=== PATIENT | female | born 1925 | race Caucasian/White ===

== ENCOUNTER 2016-10-21 02:56 | Emergency (ER) | payer MEDICARE, OTHER ==
[~2016-10-21] VITALS: Ht 160 cm; Wt 47.0 kg
[~2016-10-21 02:56] MED LIST: ACET1CAP18 PO; AMLO5TAB2 PO; ASPI-110 PO; CHOL1CHW5 CHEW; COLA100C3 PO; DULC10SU3 RECTAL; FLEEENE3 RECTAL; FURO1TAB62 PO; IPRA0.03; LATA.005%O EACH EYE; LEVO125T4 PO; LOVA20TA PO; MILKSUS4; MIRA33504 PO; NEPHRO PO; PHOS667C5 PO; PLAV75TA29 PO; TRAZ50TA12 PO; ZOFR4TAB PO; ZOLO25TA PO
[2016-10-21 02:59] VITALS: BP 163/81; PULSE 99; RESP 18; TEMP 98.1; O2SAT 96
[2016-10-21] MEDS ORDERED: LEVO-168 PO (03:15)
[2016-10-21] MEDS ORDERED: IPRA17I INH (03:15)
[2016-10-21] MEDS ORDERED: ZANT150T2 PO (03:15)
[2016-10-21] MEDS ORDERED: LATA.005%O EACH EYE (03:15)
[2016-10-21] MEDS ORDERED: NEPRLIQ PO (03:15)
[2016-10-21] MEDS ORDERED: NEPHTAB3 PO (03:15)
--- NOTE | 2016-10-21 03:15 | PD ---
HPI Chief Complaint: Injury Time Seen by Provider: 03:05 Travel History International Travel<30 days: No Contact w/Intl Traveler<30days: No Traveled to known affect area: No History of Present Illness HPI This is an 89 year old female who is on dialysis who presents to the emergency department who was trying to get into bed tonight having swung her leg getting into bed and she hit her left lower leg on the side of the bed. She has developed a large lump at the area, worsening, swollen, mildly painful. Pt. is on Plavix. She has no other injuries. PFSH Past Medical History Arthritis: Yes Asthma: No Atrial Fibrillation: Yes Blood Disorders: No Heart Rhythm Problems: Yes Cancer: No Cardiovascular Problems: Yes (ATRIAL FIBRILLATION, CAD) High Cholesterol: Yes Chemotherapy: No COPD: Yes Diabetes: Yes (TYPE II) Patient Takes Glucophage: No Dialysis: Yes (TUE, THURS, SAT) Diminished Hearing: No Endocrine: Yes Glaucoma: Yes Genitourinary: Yes Hepatitis: No Hiatal Hernia: No Hypertension: Yes Immune Disorder: No Medical other: Yes (HYPERLIPIDEMIA) Musculoskeletal: Yes (L CARPAL TUNNEL, GAIT DISTURBANCE) Neurologic: Yes (R ARM WEAKNESS AND DYSARTHRIA) Psychiatric: No Reproductive: No Respiratory: No Immunizations Current: Yes Radiation Therapy: No Sleep Apnea: No Thyroid Disease: Yes (HYPOTHYROIDISM) Menopausal: Yes Past Surgical History Abdominal Surgery: No AICD: No Cardiac Surgery: No Ear Surgery: No Endocrine Surgery: No Eye Surgery: No Genitourinary Surgery: No Gynecologic Surgery: No Joint Replacement: No Oral Surgery: No Pacemaker: No Thoracic Surgery: Yes (LUNG LOBE REMOVED) Valve Replacement: Yes (AV FISTUA RUE) Other Surgery: Yes Social History Alcohol Use: Yes (RARELY) Tobacco Use: No Substance Use: No Allergies-Medications (Allergen,Severity, Reaction): Coded Allergies: Adhesives (Verified Adverse Reaction, Severe, 10/11/14) Denies hives from tape, states, "I have very thin skin and the adhesive tears my skin." Penicillin (Verified Adverse Reaction, Intermediate, NAUSEA, 10/11/14) States, "I am taking an antibiotic in the Penicillin family right now without any problem. They give me nausea medicine." Reported Meds & Prescriptions Reported Meds & Active Scripts Active Amlodipine (Amlodipine Besylate) 5 Mg Tab 5 Mg PO DAILY Dulcolax Supp (Bisacodyl) 10 Mg Supp 10 Mg RECTAL DAILY PRN Vitamin D3 (Cholecalciferol) 2,000 Unit Chew 2,000 Units CHEW DAILY Plavix (Clopidogrel Bisulfate) 75 Mg Tab 75 Mg PO DAILY Colace (Docusate Sodium) 100 Mg Cap 100 Mg PO DAILY PRN Lasix (Furosemide) 20 Mg Tab 20 Mg PO DAILY Lovastatin 20 Mg Tab 20 Mg PO DAILY Miralax Powder (Polyethylene Glycol 3350 Powder) 17 Gm Powd 17 Gm PO DAILY Mix and dissolve one measuring cap-ful (17 grams) in water or juice. Zofran (Ondansetron HCl) 4 Mg Tab 4 Mg PO Q8HR PRN Phoslo (Calcium Acetate (Phosphate Binder)) 667 Mg Cap 667 Mg PO TID Zoloft (Sertraline HCl) 25 Mg Tab 25 Mg PO DAILY Trazodone (Trazodone HCl) 50 Mg Tab 50 Mg PO HS Tylenol (Acetaminophen) 325 Mg Cap 325 Mg PO Q6H PRN Levothyroxine (Levothyroxine Sodium) 125 Mcg Tab 125 Mcg PO DAILY Reported Zantac (Ranitidine HCl) 150 Mg Tab 75 Mg PO DAILY Levothyroxine (Levothyroxine Sodium) 112 Mcg Tab 112 Mcg PO DAILY Atrovent HFA 12.9 GM Inh (Ipratropium [place]) 17 Mcg/Act Aer 2 Puff INH Q6HR PRN Nepro (Nutritional Supplements) 1 Liq Liq 1 Can PO DAILY Xalatan Opth Drops (Latanoprost) 0.005% Drops 1 Drop EACH EYE HS Nephro-Donald (B-Complex W/ C & Folic Acid) 1 Tab 1 Tab PO DAILY Aspirin 81 (Aspirin) 81 Mg Tabdr 81 Mg PO DAILY Fleet Enema Rectal (Sodium Phosphates Rectal) 7-19 Gm/118 Ml Enem 118 Ml RECTAL DAILY PRN Ipratropium Nasal Unknown Strength Counce Unknown Dose Milk of Magnesia Liq (Magnesium Hydroxide) 400 Mg/5 Ml Susp Nephro-Donald Rx (Vitamin B Cmplx/Vit C/Folic AC) Unknown Strength Tab Unknown Dose PO Review of Systems Except as stated in HPI: all other systems reviewed are Neg Physical Exam Narrative GENERAL:Well appearing, no acute distress SKIN: 8 x 4 cm hematoma on the medial aspect of the left lower leg. HEAD: Atraumatic. Normocephalic. EYES: Pupils equal and round. No injection or drainage. ENT: Moist mucous membranes NECK: Trachea midline. CARDIOVASCULAR: Regular rate and rhythm. 3/6 systolic murmur RESPIRATORY: Clear to auscultation. Breath sounds equal bilaterally. GASTROINTESTINAL: Abdomen soft, non-tender, nondistended. MUSCULOSKELETAL: No obvious deformities. NEUROLOGICAL: Confused, but awake and alert. No obvious cranial nerve deficits. Moving all extremities PSYCHIATRIC: Appropriate mood and affect; insight and judgment normal. Data Data Last Documented VS Vital Signs Date Time Temp Pulse Resp B/P Pulse Ox O2 Delivery O2 Flow Rate FiO2 10/21/16 03:02 96 Room Air 10/21/16 02:59 98.1 99 18 163/81 MDM Medical Decision Making Medical Screen Exam Complete: Yes Emergency Medical Condition: Yes Interpretation(s) afebrile, mild tachycardia Differential Diagnosis Hematoma, abrasion, laceration Narrative Course This is an 89-year-old female who presents to the emergency department having sustained a hematoma from hitting her leg on the side of her bed. She is on Plavix. I think the hematoma should be treated conservatively with an Avery wrap. Otherwise she has no evident injuries. She can be discharged home. Diagnosis Primary Impression: Hematoma of left lower extremity Qualified Code: S80.12XA - Hematoma of left lower extremity, initial encounter Patient Instructions: General Instructions Additional Instructions: Keep the hematoma compressed with an Avery wrap. It should improve over 2 weeks. Med/Other Pt SpecificInfo: No Change to Meds Disposition: 01 DISCHARGE HOME Condition: Stable Samina Rodriguez MD Oct 21, 2016 03:15
[2016-10-21 05:51] VITALS: BP 161/76; PULSE 88; RESP 16; O2SAT 98
[2016-11-24] MEDS ORDERED: HYDR-2376 PO (15:11)
[2016-12-04] MEDS ORDERED: TRAZ50TA12 PO (18:19)
[2016-12-04] MEDS ORDERED: HYDR-2376 PO (18:19)
[2016-12-04] MEDS ORDERED: ZOLO25TA PO (18:19)
[2016-12-06] MEDS ORDERED: HYDR-3366 PO (15:19)
[2016-12-06] MEDS ORDERED: PERI8.6T PO (15:19)
[2016-12-08] MEDS ORDERED: HYDR-3366 PO (16:21)
== END 2016-10-21 10:48 | disposition home or self-care (01) ==
LOC: NEPC 02:56
DX: S80.12XA Contusion of left lower leg, initial encounter (principal); I48.91 Unspecified atrial fibrillation; Z99.2 Dependence on renal dialysis; I25.10 Atherosclerotic heart disease of native coronary artery without angina pectoris; E78.00 Pure hypercholesterolemia, unspecified; J44.9 Chronic obstructive pulmonary disease, unspecified; E11.9 Type 2 diabetes mellitus without complications; I10 Essential (primary) hypertension; E03.9 Hypothyroidism, unspecified; Z79.02 Long term (current) use of antithrombotics/antiplatelets; W22.03XA Walked into furniture, initial encounter; Y92.003 Bedroom of unspecified non-institutional (private) residence as the place of occurrence of the external cause; Y99.8 Other external cause status
CPT/HCPCS: 99283

== ENCOUNTER 2016-11-14 03:30 | Inpatient (IN) | payer MEDICARE, OTHER, MEDICAID ==
[2016-11-14] VITALS (11 sets, daily range): BP systolic 118–135; BP diastolic 56–64; PULSE 48–101; RESP 14–22; TEMP 97.1–98.1; O2SAT 93–100
[~2016-11-14] VITALS: Ht 162.6 cm; Wt 49.0 kg
[~2016-11-14 03:30] MED LIST changes: +IPRA17I INH; +LEVO-168 PO; +NEPHTAB3 PO; +NEPRLIQ PO; +ZANT150T2 PO
[2016-11-14] MEDS ORDERED: MORPHINE SULFATE 4 MG/ML INJ IV PUSH ONE (04:45)
[2016-11-14] MEDS ORDERED: ONDANSETRON HCL 4 MG/2 ML VIAL IV PUSH ONE (04:45)
[2016-11-14 05:11] LABS: AUTOMATED NEUTROPHIL # 13.6 TH/MM3 (1.8-7.7); BASOPHIL # 0.1 TH/MM3 (0-0.2); BASOPHIL % 0.6 % (0.0-2.0); EOSINOPHIL # 0.4 TH/MM3 (0-0.4); EOSINOPHIL % 2.2 % (0.0-4.0); HEMATOCRIT 33.3 % (35.0-46.0); HEMO FLAGS DIFF FINAL; LYMPH % 9.1 % (9.0-44.0); LYMPHOCYTE # 1.5 TH/MM3 (1.0-4.8); MEAN CELL VOLUME 91.1 FL (80.0-100.0); MEAN CORPUSCULAR HEMOGLOBIN 29.7 PG (27.0-34.0); MEAN CORPUSCULAR HGB CONC 32.6 % (32.0-36.0); MONO % 6.4 % (0.0-8.0); NEUT % 81.7 % (16.0-70.0); PLATELET COUNT 268 TH/MM3 (150-450); RED BLOOD COUNT 3.66 MIL/MM3 (4.00-5.30); WHITE BLOOD COUNT 16.7 TH/MM3 (4.0-11.0)
[2016-11-14] MEDS: SODIUM CHLOR 0.9% 1000 ML INJ 1,000 ML IV SCH ×2 (05:14→06:23)
[2016-11-14 05:26] LABS: ALKALINE PHOSPHATASE 141 U/L (45-117); TOTAL BILIRUBIN ADULT 0.4 MG/DL (0.2-1.0)
--- NOTE | 2016-11-14 05:26 | RADRPT ---
EXAM DATE/TIME: 11/14/2016 04:31 [facility] COMPARISON: CHEST SINGLE AP, November 07, 2012, 16:03. INDICATIONS : Short of breath after fall. MEDICAL HISTORY : Stroke. Renal disease, end stage. Cardiovascular disease. dysphagia. SURGICAL HISTORY : CABG. ENCOUNTER: Initial ACUITY: 1 day PAIN SCORE: 2/10 LOCATION: Bilateral chest FINDINGS: A single view of the chest demonstrates left basilar consolidation/effusion. Pleural based thickening and scarring is seen laterally in the right lower lung field. Heart size is borderline. Postsurgical changes including findings of prior CABG as well as extensive stenting of the right upper extremity vasculature. Osseous structures are intact. CONCLUSION: 1. Left basilar consolidation/effusion. 2. Focal pleural thickening and pleural parenchymal scarring laterally in the right lower lung. 3. Prior CABG. Abandoned epicardial pacer wires. Extensive stenting of the right upper extremity vasc ulature. 4. Borderline prominent but well compensated heart Carson Stevens MD on November 14, 2016 at 5:21 Board Certified Radiologist. This report was verified electronically.
--- NOTE | 2016-11-14 05:29 | RADRPT ---
EXAM DATE/TIME: 11/14/2016 04:40 [facility] COMPARISON: No previous studies available for comparison. INDICATIONS : Right knee pain post fall. MEDICAL HISTORY : Stroke. Renal disease, end stage. Cardiovascular disease. dysphagia. SURGICAL HISTORY : CABG. ENCOUNTER: Initial ACUITY: 1 day PAIN SCORE: 10/10 LOCATION: Right knee FINDINGS: Two view examination of the right knee demonstrates osseous demineralization with no acute fracture. Severe degenerative osteoarthritic changes with marked loss of the medial tibiofemoral joint space ex tensive atherosclerotic calcification of the regional vasculature. Multiple hemoclips along the media l soft tissues of the leg suggest prior vein harvesting and/or in situ bypass graft. CONCLUSION: 1. Osseous demineralization but no acute fracture. 2. Osteoarthritic changes. 3. Dense atherosclerotic calcification of the regional vasculature, including a probable in situ fem- popliteal bypass graft. Carson Stevens MD on November 14, 2016 at 5:25 Board Certified Radiologist. This report was verified electronically.
[2016-11-14 05:31] LABS: ALT (GPT) 23 U/L (10-53); ANION GAP 11 MEQ/L (5-15); AST (GOT) 17 U/L (15-37); BICARBONATE 23.4 MEQ/L (21.0-32.0); BLOOD UREA NITROGEN 46 MG/DL (7-18); CHLORIDE 96 MEQ/L (98-107); GLOMERULAR FILTRATION RATE 8 ML/MIN (>89); SODIUM (NA) 130 MEQ/L (136-145)
--- NOTE | 2016-11-14 05:31 | RADRPT ---
EXAM DATE/TIME: 11/14/2016 04:35 [facility] COMPARISON: No previous studies available for comparison. INDICATIONS : Right hip pain post fall. MEDICAL HISTORY : Stroke. Renal disease, end stage. Cardiovascular disease. dysphagia. SURGICAL HISTORY : None. ENCOUNTER: Initial ACUITY: 1 day PAIN SCORE: 10/10 LOCATION: Right hip FINDINGS: Examination of the right hip was performed with AP Pelvis. There is diffuse osseous demineralization. Apparent subcapital fracture of the right hip. 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 Den se atherosclerotic calcification of the regional vasculature. CONCLUSION: 1. Diffuse osseous demineralization with a subcapital fracture of the right hip. 2. Dense atherosclerotic calcification of the regional vasculature. Carson Stevens MD on November 14, 2016 at 5:28 Board Certified Radiologist. This report was verified electronically.
[2016-11-14 05:37] LABS: PROTHROMBIN TIME - PATIENT 11.4 SEC (9.8-11.6)
--- NOTE | 2016-11-14 05:38 | PD ---
HPI Chief Complaint: Fall Time Seen by Provider: 04:12 Travel History International Travel<30 days: No Contact w/Intl Traveler<30days: No Traveled to known affect area: No History of Present Illness HPI The patient is an 89 year old female who presents to the [facility] emergency department with a history of a reported mechanical fall at her patient 's [facility] yesterday at approximately noon. According to the record, the patient throughout the day was complaining of right hip and right knee pain. The patient was noted to have bruising developing over the anterior aspect of the right knee. The patient was sent to the emergency department for evaluation and pain control. The patient denies any recent fevers, cough, congestion, neck pain, chest pain, shortness of breath, abdominal pain, vomiting , diarrhea, urinary symptoms, or new neurologic symptoms. 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 Arthritis: Yes Asthma: No Atrial Fibrillation: Yes Blood Disorders: No Heart Rhythm Problems: Yes Cancer: No Cardiovascular Problems: Yes (ATRIAL FIBRILLATION, CAD) High Cholesterol: Yes Chemotherapy: No COPD: Yes Diabetes: Yes (TYPE II) Patient Takes Glucophage: Yes Dialysis: Yes (SUN, , SUN) Diminished Hearing: No Endocrine: Yes Glaucoma: Yes Genitourinary: Yes Hepatitis: No Hiatal Hernia: No Hypertension: Yes Immune Disorder: No Medical other: Yes (HYPERLIPIDEMIA) Musculoskeletal: Yes (L CARPAL TUNNEL, GAIT DISTURBANCE) Neurologic: Yes (R ARM WEAKNESS AND DYSARTHRIA) Psychiatric: No Reproductive: No Respiratory: No Immunizations Current: Yes Radiation Therapy: No Sleep Apnea: No Thyroid Disease: Yes (HYPOTHYROIDISM) Tetanus Vaccination: Unknown Influenza Vaccination: Yes Menopausal: Yes Past Surgical History Narrative Surgical The patient's past surgical history is significant for tricuspid valve replacement, AV fistula for dialysis in the right upper extremity. Abdominal Surgery: No AICD: No Cardiac Surgery: No Ear Surgery: No Endocrine Surgery: No Eye Surgery: No Genitourinary Surgery: No Gynecologic Surgery: No Joint Replacement: No Oral Surgery: No Pacemaker: No Thoracic Surgery: Yes (LUNG LOBE REMOVED) Valve Replacement: Yes (AV JEFFUA RUJonathan) Other Surgery: Yes Social History Alcohol Use: Yes (RARELY) Tobacco Use: No Substance Use: No Allergies-Medications (Allergen,Severity, Reaction): Coded Allergies: Adhesives (Verified Adverse Reaction, Severe, 11/14/16) Denies hives from tape, states, "I have very thin skin and the adhesive tears my skin." Penicillin (Verified Adverse Reaction, Intermediate, NAUSEA, 11/14/16) States, "I am taking an antibiotic in the Penicillin family right now without any problem. They give me nausea medicine." Reported Meds & Prescriptions Reported Meds & Active Scripts Active Amlodipine (Amlodipine Besylate) 5 Mg Tab 5 Mg PO DAILY Dulcolax Supp (Bisacodyl) 10 Mg Supp 10 Mg RECTAL DAILY PRN Vitamin D3 (Cholecalciferol) 2,000 Unit Chew 2,000 Units CHEW DAILY Plavix (Clopidogrel Bisulfate) 75 Mg Tab 75 Mg PO DAILY Colace (Docusate Sodium) 100 Mg Cap 100 Mg PO DAILY PRN Lasix (Furosemide) 20 Mg Tab 20 Mg PO DAILY Lovastatin 20 Mg Tab 20 Mg PO DAILY Miralax Powder (Polyethylene Glycol 3350 Powder) 17 Gm Powd 17 Gm PO DAILY Mix and dissolve one measuring cap-ful (17 grams) in water or juice. Zofran (Ondansetron HCl) 4 Mg Tab 4 Mg PO Q8HR PRN Phoslo (Calcium Acetate (Phosphate Binder)) 667 Mg Cap 667 Mg PO TID Zoloft (Sertraline HCl) 25 Mg Tab 25 Mg PO DAILY Trazodone (Trazodone HCl) 50 Mg Tab 50 Mg PO HS Tylenol (Acetaminophen) 325 Mg Cap 325 Mg PO Q6H PRN Levothyroxine (Levothyroxine Sodium) 125 Mcg Tab 125 Mcg PO DAILY Reported Lovastatin 40 Mg Tab 40 Mg PO DAILY Zantac (Ranitidine HCl) 150 Mg Tab 75 Mg PO DAILY Levothyroxine (Levothyroxine Sodium) 112 Mcg Tab 112 Mcg PO DAILY Atrovent HFA 12.9 GM Inh (Ipratropium Beaman) 17 Mcg/Act Aer 2 Puff INH Q6HR PRN Nepro (Nutritional Supplements) 1 Liq Liq 1 Can PO DAILY Xalatan Opth Drops (Latanoprost) 0.005% Drops 1 Drop EACH EYE HS Nephro-Donald (B-Complex W/ C & Folic Acid) 1 Tab 1 Tab PO DAILY Aspirin 81 (Aspirin) 81 Mg Tabdr 81 Mg PO DAILY Fleet Enema Rectal (Sodium Phosphates Rectal) 7-19 Gm/118 Ml Enem 118 Ml RECTAL DAILY PRN Ipratropium Nasal Unknown Strength [place] Unknown Dose Milk of Silvia Liq (Magnesium Hydroxide) 400 Mg/5 Ml Susp Nephro-Donald Rx (Vitamin B Cmplx/Vit C/Folic AC) Unknown Strength Tab Unknown Dose PO Review of Systems Except as stated in HPI: all other systems reviewed are Neg General / Constitutional: No: Fever Eyes: No: Visual changes HENT: No: Headaches Cardiovascular: No: Chest Pain or Discomfort Respiratory: No: Shortness of Breath Gastrointestinal: No: Abdominal Pain Genitourinary: No: Dysuria Musculoskeletal: Positive: Arthralgias, Limited ROM, Pain Skin: No Rash Neurologic: No: Weakness Psychiatric: No: Depression Endocrine: No: Polydipsia Hematologic/Lymphatic: No: Easy Bruising Physical Exam Narrative General: The patient is a well-developed, thin appearing female, reporting right hip and right knee pain. Head and Neck exam: Head is normocephalic atraumatic. Eyes: EOMI, pupils are equal round and reactive to light. Nose: Midline septum with pink mucous membranes Mouth: Dentition unremarkable. Moist mucus membranes. Posterior oropharynx is not erythematous. No tonsillar hypertrophy. Uvula midline. Airway patent. Neck: No palpable lymphadenopathy. No nuchal rigidity. No thyromegaly. Cardiovascular: Regular rate and rhythm without murmurs, gallops, or rubs. Lungs: Clear to auscultation bilaterally. No wheezes, rhonchi, or rales. Abdomen: Soft, without tenderness to palpation in all 4 quadrants of the abdomen. No guarding, rebound, or rigidity. Normal bowel sounds are audible. Extremities: No clubbing, cyanosis, or edema. 2+ pulses in all 4 extremities. The patient has both knees flexed. The patient is unable to straighten out her legs to evaluate for shortening or rotation. The patient on examination of the right knee has tenderness on palpation anteriorly with ecchymosis noted. There is no ligament laxity. There is no deformity noted of the right knee. The patient has pain with flexion of her right hip. Back: No costovertebral angle tenderness to palpation. Neurologic Exam: Grossly nonfocal. Data Data Last Documented VS Vital Signs Date Time Temp Pulse Resp B/P Pulse Ox O2 Delivery O2 Flow Rate FiO2 11/14/16 06:23 59 14 120/56 98 Nasal Cannula 2 11/14/16 03:39 98.1 Orders Chest, Single Ap (11/14/16 04:13) Hip, Uni(Ap&Lat) W Ap Pelvis (11/14/16 04:45) Knee, Ltd (1 Or 2vws) (11/14/16 04:45) Electrocardiogram (11/14/16 04:45) Complete Blood Count With Diff (11/14/16 04:45) Comprehensive Metabolic Panel (11/14/16 04:45) Prothrombin Time / Inr (Pt) (11/14/16 04:45) Act Partial Throm Time (Ptt) (11/14/16 04:45) Urinalysis - C+S If Indicated (11/14/16 04:45) Iv Access Insert/Monitor (11/14/16 04:45) Ecg Monitoring (11/14/16 04:45) Oximetry (11/14/16 04:45) Urinary Catheter Insert/Apply (11/14/16 04:45) Sodium Chlor 0.9% 1000 Ml Inj (Ns 1000 M (11/14/16 04:45) Morphine Inj (Morphine Inj) (11/14/16 04:45) Ondansetron Inj (Zofran Inj) (11/14/16 04:45) Sodium Polysty Sulfate Liq (Kayexalate L (11/14/16 06:00) Dextrose 50% In Song (Vial) Inj (D50w (Vi (11/14/16 06:00) Insulin Human Regular Inj (Novolin R Inj (11/14/16 06:00) Sodium Bicarbonate 8.4% Inj (Sodium Bica (11/14/16 06:00) Albuterol Neb (Albuterol Neb) (11/14/16 06:00) Calcium Gluconate Inj (Calcium Gluconate (11/14/16 06:00) Admit Order (Ed Use Only) (11/14/16 06:24) Labs Laboratory Tests Test 11/14/16 04:45 White Blood Count 16.7 TH/MM3 Red Blood Count 3.66 MIL/MM3 Hemoglobin 10.9 GM/DL Hematocrit 33.3 % Mean Corpuscular Volume 91.1 FL Mean Corpuscular Hemoglobin 29.7 PG Mean Corpuscular Hemoglobin 32.6 % Concent Red Cell Distribution Width 15.0 % Platelet Count 268 TH/MM3 Mean Platelet Volume 7.8 FL Neutrophils (%) (Auto) 81.7 % Lymphocytes (%) (Auto) 9.1 % Monocytes (%) (Auto) 6.4 % Eosinophils (%) (Auto) 2.2 % Basophils (%) (Auto) 0.6 % Neutrophils # (Auto) 13.6 TH/MM3 Lymphocytes # (Auto) 1.5 TH/MM3 Monocytes # (Auto) 1.1 TH/MM3 Eosinophils # (Auto) 0.4 TH/MM3 Basophils # (Auto) 0.1 TH/MM3 CBC Comment DIFF FINAL Differential Comment Prothrombin Time 11.4 SEC Prothromb Time International 1.0 RATIO Ratio Activated Partial 30.0 SEC Thromboplast Time Sodium Level 130 MEQ/L Potassium Level 6.0 MEQ/L Chloride Level 96 MEQ/L Carbon Dioxide Level 23.4 MEQ/L Anion Gap 11 MEQ/L Blood Urea Nitrogen 46 MG/DL Creatinine 5.35 MG/DL Estimat Glomerular Filtration 8 ML/MIN Rate Random Glucose 116 MG/DL Calcium Level 8.8 MG/DL Magnesium Level 2.6 MG/DL Total Bilirubin 0.4 MG/DL Aspartate Amino Transf 17 U/L (AST/SGOT) Alanine Aminotransferase 23 U/L (ALT/SGPT) Alkaline Phosphatase 141 U/L Total Protein 8.1 GM/DL Albumin 3.5 GM/DL [facility] Medical Decision Making Medical Screen Exam Complete: Yes Emergency Medical Condition: Yes Medical Record Reviewed: Yes Interpretation(s) Laboratory Tests Test 11/14/16 04:45 White Blood Count 16.7 TH/MM3 Red Blood Count 3.66 MIL/MM3 Hemoglobin 10.9 GM/DL Hematocrit 33.3 % Mean Corpuscular Volume 91.1 FL Mean Corpuscular Hemoglobin 29.7 PG Mean Corpuscular Hemoglobin 32.6 % Concent Red Cell Distribution Width 15.0 % Platelet Count 268 TH/MM3 Mean Platelet Volume 7.8 FL Neutrophils (%) (Auto) 81.7 % Lymphocytes (%) (Auto) 9.1 % Monocytes (%) (Auto) 6.4 % Eosinophils (%) (Auto) 2.2 % Basophils (%) (Auto) 0.6 % Neutrophils # (Auto) 13.6 TH/MM3 Lymphocytes # (Auto) 1.5 TH/MM3 Monocytes # (Auto) 1.1 TH/MM3 Eosinophils # (Auto) 0.4 TH/MM3 Basophils # (Auto) 0.1 TH/MM3 CBC Comment DIFF FINAL Differential Comment Prothrombin Time 11.4 SEC Prothromb Time International 1.0 RATIO Ratio Activated Partial 30.0 SEC Thromboplast Time Sodium Level 130 MEQ/L Potassium Level 6.0 MEQ/L Chloride Level 96 MEQ/L Carbon Dioxide Level 23.4 MEQ/L Anion Gap 11 MEQ/L Blood Urea Nitrogen 46 MG/DL Creatinine 5.35 MG/DL Estimat Glomerular Filtration 8 ML/MIN Rate Random Glucose 116 MG/DL Calcium Level 8.8 MG/DL Total Bilirubin 0.4 MG/DL Aspartate Amino Transf 17 U/L (AST/SGOT) Alanine Aminotransferase 23 U/L (ALT/SGPT) Alkaline Phosphatase 141 U/L Total Protein 8.1 GM/DL Albumin 3.5 GM/DL Last Impressions Knee X-Ray 11/14/16444 Signed Impressions: Service Date/Time: Monday, November 14, 2016 04:40 - CONCLUSION: 1. Osseous demineralization but no acute fracture. 2. Osteoarthritic changes. 3. Dense atherosclerotic calcification of the regional vasculature, including a probable in situ fem-popliteal bypass graft. Carson Stevens MD Hip and Pelvis X-Ray 11/14/166 Signed Impressions: Service Date/Time: Monday, November 14, 2016 04:35 - CONCLUSION: 1. Diffuse osseous demineralization with a subcapital fracture of the right hip. 2. Dense atherosclerotic calcification of the regional vasculature. Carson Stevens MD Chest X-Ray 11/14/16 [id number] Signed Impressions: Service Date/Time: Monday, November 14, 2016 04:31 - CONCLUSION: 1. Left basilar consolidation/effusion. 2. Focal pleural thickening and pleural parenchymal scarring laterally in the right lower lung. 3. Prior CABG. Abandoned epicardial pacer wires. Extensive stenting of the right upper extremity vasculature. 4. Borderline prominent but well compensated heart Carson Stevens MD Differential Diagnosis Right hip fracture versus dislocation, versus right knee fracture, versus contusion Narrative Course During the course of the patients emergency department visit, the patients history, examination, and differential diagnosis were reviewed with the patient. The patient had IV access obtained and blood work sent for analysis. The patient was placed on a youth nutritional monitor with oximetry and blood pressure monitoring. A right hip and pelvic x-ray was ordered, right knee x-ray was ordered. Chest x-ray was ordered. An EKG was done on arrival. The patient's EKG shows a bradycardia with P waves that are difficult to identify, however in V1 a appeared to be marching out regularly and the patient's QRS complexes appear to be marching out regularly, suspicious for complete heart block. No acute ST segment elevation is noted. The patient's potassium was noted to be elevated at 6.0. This could be the cause. The patient had pacer pads applied to her chest. The patient's resuscitation status was reviewed and the patient is DNR. The patient was given calcium gluconate 1 g IV over one hour, Kayexalate 15 g by mouth, 1 amp of D50, regular insulin 10 units IV 1, albuterol nebulizer treatment 1, and 1 amp of bicarbonate. The patient was provided normal saline at O, morphine for pain, Zofran for nausea. The patients laboratory studies were reviewed and remarkable for a white count of 16.7, hemoglobin 10.9, platelets 268 with 81.7 neutrophils, CMP is remarkable for sodium of 130, potassium 6.0, chloride 96, BUN 46, creatinine 5.35, glucose 116, magnesium 2.6, alkaline phosphatase 141, PT PTT unremarkable. Radiology studies were reviewed and remarkable for a femoral neck fracture of the right hip. I spoke to Dr. Sheridan regarding this patient's hip fracture. He is awaiting medical clearance for surgical repair. Chest x-ray reveals a left basilar consolidation/effusion. The patient was given Rocephin 1 g IV, Zithromax 500 IV, as the patient's white count is also noted to be elevated and this could be related to a pneumonia. Knee x-ray reveals osseous demineralization, but no acute fracture. The patients results were discussed with the patient, including the plan of care. I explained that further testing and/ or monitoring is indicated based on the patients history, examination, and/ or laboratory findings. Therefore, I recommended admission for additional evaluation. The patient expressed understanding and was agreeable with this plan. The patient was admitted to the hospital in stable condition and sent to a bed under the care of the [facility]. Critical Care Narrative Aggregate critical care time was 35 minutes. Time to perform other separately billable procedures was not included in the critical care time. My time did not include minutes spent treating any other patients simultaneously or on activities that did not directly contribute to the patient's treatment. The services I provided to this patient were to treat and/or prevent clinically significant deterioration that could result in: Cardiovascular collapse, versus cardiac arrhythmia I provided critical care services requiring my management, as noted below: Chart data review, documentation time, medication orders and management, vital sign assessments/reviewing monitor data, ordering and reviewing lab tests, ordering and interpreting/reviewing x-rays and diagnostic studies, care of the patient and discussion of the patient with the admitting physicians. Diagnosis Primary Impression: Fracture of femoral neck, right Qualified Code: S72.001A - Closed fracture of neck of right femur, initial encounter Additional Impressions: Hyperkalemia Renal failure Hemodialysis patient Lung infiltrate Leukocytosis Qualified Code: D72.828 - Other elevated white blood cell (WBC) count Admitting Information Admitting Physician Requests: Admit Lana Vang MD Nov 14, 2016 05:38
[2016-11-14] MEDS ORDERED: CALCIUM GLUCONATE INJ 1 GM in SODIUM CHLORIDE 0.9% INJ 100 ML IV ONE (06:00)
[2016-11-14] MEDS ORDERED: RESP: ALBUTEROL 2.5 MG/3 ML NEB (SCH) NEB ONE (06:00)
[2016-11-14] MEDS ORDERED: INSULIN HUMAN REGULAR 1,000 UNITS/10 ML VIAL IV PUSH ONE (06:00)
[2016-11-14] MEDS ORDERED: DEXTROSE 50% IN WATER 50 ML VIAL(D50) IV PUSH ONE (06:00)
[2016-11-14] MEDS ORDERED: SODIUM POLYSTYRENE SULFONATE SUSP 15 GM/60 ML CUP PO ONE (06:00)
[2016-11-14] MEDS ORDERED: SODIUM BICARBONATE 8.4% INJ 50 MEQ/50 ML SYR IV PUSH ONE (06:00)
[2016-11-14] MEDS ORDERED: LOVA40TA PO (06:59)
[2016-11-14] MEDS ORDERED: SODIUM CHLORIDE 0.9% FLUSH 5 ML FLUSH FLUSH PRN (07:00)
[2016-11-14] MEDS ORDERED: BISACODYL 10 MG SUPP RECTAL PRN (07:00)
[2016-11-14] MEDS ORDERED: NALOXONE HCL 0.4 MG/ML AMP IV PRN (07:00)
[2016-11-14] MEDS ORDERED: ACETAMINOPHEN 325 MG TAB PO PRN (07:00)
[2016-11-14] MEDS ORDERED: ONDANSETRON HCL 4 MG/2 ML VIAL IVP PRN (07:00)
[2016-11-14] MEDS ORDERED: DOCUSATE SODIUM 100 MG CAP PO PRN (07:00)
--- NOTE | 2016-11-14 07:00 | HHI.HP ---
HPI Service Family Medicine Primary Care Physician Non-Staff Admission Diagnosis right femoral neck fx, hyperkalemia, dialysis patient Diagnoses: Chief Complaint: leg pain International Travel<30 Days: No Contact w/Intl Traveler<30days: No Known Affected Area: No History of Present Illness Patient is an 89-year-old female with past medical history significant for HTN, hypothyroidism, CAD, ESRD on dialysis, and CHF who presents today with leg pain after a fall. Patient is a resident of [facility] where she fell yesterday afternoon. Mechanism of fall was unable to be elicited due to patient's speech impairment. She was experiencing pain in her right anterior leg and knee that did not improve with Tylenol. She was sent to the ED and found to have a right subcapital hip fracture, hyperkalemia, and heart block. (Annelise Drew MD R2) Review of Systems Constitutional: COMPLAINS OF: Dizziness, DENIES: Fatigue, Fever, Chills Eyes: DENIES: Blurred vision Ears, nose, mouth, throat: DENIES: Throat pain Respiratory: DENIES: Cough, Wheezing, Shortness of breath Cardiovascular: DENIES: Chest pain, Palpitations, Lower Extremity Edema Gastrointestinal: DENIES: Abdominal pain, Nausea, Vomiting Genitourinary: DENIES: Dysuria Musculoskeletal: COMPLAINS OF: Joint pain, Muscle aches Hematologic/lymphatic: COMPLAINS OF: Bruising Neurologic: COMPLAINS OF: Abnormal gait, Poor Balance Psychiatric: COMPLAINS OF: Depression (Annelise Drew MD R2) Past Family Social History Past Medical History Hypertension Hyperlipidemia Hypothyroidism Coronary artery disease Peripheral vascular disease End-stage renal disease on dialysis Paroxysmal atrial fibrillation Macular degeneration Congestive heart failure with last ejection fraction at 35% noted in June History of 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 Past Surgical History Tricuspid valve replacement AV fistula for dialysis placement Reported Medications Reported Meds & Active Scripts Active Dulcolax Supp (Bisacodyl) 10 Mg Supp 10 Mg RECTAL DAILY PRN Vitamin D3 (Cholecalciferol) 2,000 Unit Chew 2,000 Units CHEW DAILY Plavix (Clopidogrel Bisulfate) 75 Mg Tab 75 Mg PO DAILY Colace (Docusate Sodium) 100 Mg Cap 100 Mg PO DAILY PRN Lasix (Furosemide) 20 Mg Tab 20 Mg PO DAILY Lovastatin 20 Mg Tab 20 Mg PO DAILY Miralax Powder (Polyethylene Glycol 3350 Powder) 17 Gm Powd 17 Gm PO DAILY Mix and dissolve one measuring cap-ful (17 grams) in water or juice. Zofran (Ondansetron HCl) 4 Mg Tab 4 Mg PO Q8HR PRN Phoslo (Calcium Acetate (Phosphate Binder)) 667 Mg Cap 667 Mg PO TID Zoloft (Sertraline HCl) 25 Mg Tab 25 Mg PO DAILY Trazodone (Trazodone HCl) 50 Mg Tab 50 Mg PO HS Tylenol (Acetaminophen) 325 Mg Cap 325 Mg PO Q6H PRN Levothyroxine (Levothyroxine Sodium) 125 Mcg Tab 125 Mcg PO DAILY Reported Lovastatin 40 Mg Tab 40 Mg PO DAILY Zantac (Ranitidine HCl) 150 Mg Tab 75 Mg PO DAILY Levothyroxine (Levothyroxine Sodium) 112 Mcg Tab 112 Mcg PO DAILY Atrovent HFA 12.9 GM Inh (Ipratropium [place]) 17 Mcg/Act Aer 2 Puff INH Q6HR PRN Nepro (Nutritional Supplements) 1 Liq Liq 1 Can PO DAILY Xalatan Opth Drops (Latanoprost) 0.005% Drops 1 Drop EACH EYE HS Nephro-Donald (B-Complex W/ C & Folic Acid) 1 Tab 1 Tab PO DAILY Aspirin 81 (Aspirin) 81 Mg Tabdr 81 Mg PO DAILY Fleet Enema Rectal (Sodium Phosphates Rectal) 7-19 Gm/118 Ml Enem 118 Ml RECTAL DAILY PRN Ipratropium Nasal Unknown Strength [place] Unknown Dose Milk of Magnesia Liq (Magnesium Hydroxide) 400 Mg/5 Ml Susp Nephro-Donald Rx (Vitamin B Cmplx/Vit C/Folic AC) Unknown Strength Tab Unknown Dose PO (Annelise Drew MD R2) Allergies: Coded Allergies: Adhesives (Verified Adverse Reaction, Severe, 11/14/16) Denies hives from tape, states, "I have very thin skin and the adhesive tears my skin." Penicillin (Verified Adverse Reaction, Intermediate, NAUSEA, 11/14/16) States, "I am taking an antibiotic in the Penicillin family right now without any problem. They give me nausea medicine." Active Ordered Medications Current Medications Medications (Trade) Dose Ordered Sig/Tavares Route Start Time Stop Time Status Last Admin Sodium Chloride 1,000 ml @ 0 mls/hr [id number] IV 11/14/16 04:45 11/14/16 06:23 (Calcium Gluconate Inj/NS Inj) 110 ml @ 110 mls/hr ONCE ONCE IV 11/14/16 06:00 11/14/16 06:59 11/14/16 06:22 (NS Flush) 2 ml UNSCH PRN FLUSH 11/14/16 07:00 (NS Flush) 2 ml BID FLUSH 11/14/16 09:00 (Tylenol) 650 mg Q4H PRN PO 11/14/16 07:00 (Zofran Inj) 4 mg Q6H PRN IVP 11/14/16 07:00 (Narcan Inj) 0.4 mg UNSCH PRN IV 11/14/16 07:00 Family History Unable to obtain as patient is speech impaired Social History Resides at [facility]. No tobacco, alcohol or illicit drug use. Healthcare Surrogate: Cristóbal Richey [phone]. DNR. (Annelise Drew MD R2) Physical Exam Vital Signs Vital Signs Date Time Temp Pulse Resp B/P Pulse Ox O2 Delivery O2 Flow Rate FiO2 11/14/16 06:23 59 14 120/56 98 Nasal Cannula 2 11/14/16 05:32 16 93 Room Air 11/14/16 03:43 58 16 96 Nasal Cannula 4 11/14/16 03:39 98.1 55 16 134/64 96 Physical Exam GENERAL: This is a well-nourished, well-developed elderly female patient, in no apparent distress. SKIN: Several bruises on right lower extremity. Right lower extremity skin tear and left lower extremity hematoma covered in dressings. Cool and dry. HEAD: Atraumatic. Normocephalic. No temporal or scalp tenderness. EYES: Pupils equal round and reactive. Extraocular motions intact. No scleral icterus. No injection or drainage. ENT: Nose without bleeding, purulent drainage or septal hematoma. Throat without erythema, tonsillar hypertrophy or exudate. Uvula midline. Airway patent. NECK: Trachea midline. No JVD or lymphadenopathy. Supple, nontender, no meningeal signs. CARDIOVASCULAR: Regular rate and rhythm. 2/6 JOE. RESPIRATORY: Clear to auscultation. Breath sounds equal bilaterally. No wheezes , rales, or rhonchi. GASTROINTESTINAL: Abdomen soft, non-tender, nondistended. No hepato-splenomegaly , or palpable masses. No guarding. MUSCULOSKELETAL: No joint tenderness bilaterally. Pain with external and internal rotation of right hip. No calf tenderness. NEUROLOGICAL: Awake and alert. Cranial nerves II through XII intact. Motor and sensory grossly within normal limits. Speech difficult to comprehend at length. Laboratory Laboratory Tests Test 11/14/16 04:45 White Blood Count 16.7 Red Blood Count 3.66 Hemoglobin 10.9 Hematocrit 33.3 Mean Corpuscular Volume 91.1 Mean Corpuscular Hemoglobin 29.7 Mean Corpuscular Hemoglobin 32.6 Concent Red Cell Distribution Width 15.0 Platelet Count 268 Mean Platelet Volume 7.8 Neutrophils (%) (Auto) 81.7 Lymphocytes (%) (Auto) 9.1 Monocytes (%) (Auto) 6.4 Eosinophils (%) (Auto) 2.2 Basophils (%) (Auto) 0.6 Neutrophils # (Auto) 13.6 Lymphocytes # (Auto) 1.5 Monocytes # (Auto) 1.1 Eosinophils # (Auto) 0.4 Basophils # (Auto) 0.1 CBC Comment DIFF FINAL Differential Comment Prothrombin Time 11.4 Prothromb Time International 1.0 Ratio Activated Partial 30.0 Thromboplast Time Sodium Level 130 Potassium Level 6.0 Chloride Level 96 Carbon Dioxide Level 23.4 Anion Gap 11 Blood Urea Nitrogen 46 Creatinine 5.35 Estimat Glomerular Filtration 8 Rate Random Glucose 116 Calcium Level 8.8 Total Bilirubin 0.4 Aspartate Amino Transf 17 (AST/SGOT) Alanine Aminotransferase 23 (ALT/SGPT) Alkaline Phosphatase 141 Total Protein 8.1 Albumin 3.5 (Annelise Drew MD R2) Result Diagram: 11/14/1644411/14/16444 Imaging Last Impressions Knee X-Ray 11/14/16444 Signed Impressions: Service Date/Time: Monday, November 14, 2016 04:40 - CONCLUSION: 1. Osseous demineralization but no acute fracture. 2. Osteoarthritic changes. 3. Dense atherosclerotic calcification of the regional vasculature, including a probable in situ fem-popliteal bypass graft. Carson Stevens MD Hip and Pelvis X-Ray 11/14/16444 Signed Impressions: Service Date/Time: Monday, November 14, 2016 04:35 - CONCLUSION: 1. Diffuse osseous demineralization with a subcapital fracture of the right hip. 2. Dense atherosclerotic calcification of the regional vasculature. Crason Stevens MD Chest X-Ray 11/14/16 0413 Signed Impressions: Service Date/Time: Monday, November 14, 2016 04:31 - CONCLUSION: 1. Left basilar consolidation/effusion. 2. Focal pleural thickening and pleural parenchymal scarring laterally in the right lower lung. 3. Prior CABG. Abandoned epicardial pacer wires. Extensive stenting of the right upper extremity vasculature. 4. Borderline prominent but well compensated heart Carson Stevens MD (Annelise Drew MD R2) Assessment and Plan Assessment and Plan Patient is an 89-year-old female with past medical history significant for HTN, hypothyroidism, CAD, ESRD on dialysis, and CHF who presented today with leg pain after a fall and is admitted for right subcapital hip fracture, hyperkalemia, and heart block. Code Status DNR Discussed Condition With wdw Dr. Darden and Medicine Team (Annelise Drew MD R2) Attending Attestation Patient seen and examined. Case reviewed and discussed with the resident team. Agree with plan of care as discussed with me and documented in the resident note. pt seen day of admission in ICU. stable and about to have dialysis. (No Darden MD) Problem List: (1) Heart block AV complete Status: Acute Plan: EKG significant for complete heart block Likely secondary to hyperkalemia as outlined below, suspect that this will resolve with resolution of hyperkalemia. Will also check TSH Tele Transcutaneous pacer pads in place (2) Hyperkalemia Status: Acute Plan: Hyperkalemia of 6.0 on admission Dialysis s/p calcium gluconate 1g, sodium bicarb 50meq, insulin 10 units, albuterol neb, D50, and Kayexalate in ED Repeat potassium pending Will obtain Mg and phos Nephrology consulted for Dialysis today with the hope that resolution of hyperkalemia will lead to resolution of heart block and patient can proceed with hip surgery. (3) Fracture of femoral neck, right Status: Acute Plan: Hip x-ray significant for diffuse osseous demineralization with a subcapital fracture of the right hip. s/p Morphine 2mg IV in ED with improvement in pain - Orthopedic Surgery consulted, plan to operate once medically cleared. - Obtain Vit D level - Morphine 2mg IV Q4H PRN Pain 6-10 (4) ESRD (end stage renal disease) on dialysis Status: Chronic Plan: Nephrology consulted Dialysis usually on [id number] Continue home dose of Nephrocaps, cholecalciferol, Phoslo (5) CHF, chronic Status: Chronic Plan: Last Echo 07/02/15 significant for EF 35% Continue home dose of Lasix (6) Nutrition, metabolism, and development symptoms Status: Acute Plan: Fluids: None Electrolytes: as above Nutrition: NPO in anticipation of surgery. Once a diet is resumed, patient requires mechanical soft with honey thickened liquids. DVT PPx: SCD's, will hold chemical anticoagulation in anticipation of surgery (Annelise Drew MD R2) Physician Certification 2 Midnight Certification Type: Admission for Inpatient Services Order for Inpatient Services The services are ordered in accordance with Medicare regulations or non- Medicare payer requirements, as applicable. In the case of services not specified as inpatient-only, they are appropriately provided as inpatient services in accordance with the 2-midnight benchmark. Estimated LOS (days): 2 days is the estimated time the patient will need to remain in the hospital, assuming treatment plan goals are met and no additional complications. Post-Hospital Plan: SNF (Annelise Drew MD R2) Problem Qualifiers (1) Fracture of femoral neck, right: Qualified Code: S72.001A - Closed fracture of neck of right femur, initial encounter (2) CHF, chronic: Qualified Code: I50.22 - Chronic systolic congestive heart failure Annelise Drew MD R2 Nov 14, 2016 07:00 No Darden MD Nov 15, 2016 16:10
[2016-11-14] MEDS ORDERED: RESP: ALBUTEROL 2.5 MG/IPRATROPIUM 0.5 MG NEB (PRN) NEB (07:45)
[2016-11-14] MEDS ORDERED: MORPHINE SULFATE 4 MG/ML INJ IV PUSH PRN ×2 (07:45→12:45)
[2016-11-14] MEDS ORDERED: cefTRIAXone INJ 1,000 MG in SODIUM CHLORIDE 0.9% INJ 100 ML IV ONE (07:45)
[2016-11-14] MEDS ORDERED: AZITHROMYCIN INJ 500 MG in SODIUM CHLOR 0.9% 250 ML INJ 250 ML IV ONE (07:45)
[2016-11-14] MEDS: LEVOTHYROXINE SODIUM 112 MCG TAB PO SCH (08:02)
[2016-11-14] MEDS ORDERED: SODIUM CHLOR 0.9% 250 ML INJ 250 ML ONE (08:05)
[2016-11-14] MEDS ORDERED: GENTAMICIN SULFATE 80 MG/2 ML VIAL ONE (08:05)
[2016-11-14] MEDS ORDERED: VANCOMYCIN HCL 1000 MG VIAL ONE (08:05)
[2016-11-14] MEDS ORDERED: NUTRITIONAL SUPPLEMENTS PO SCH (09:00)
[2016-11-14] MEDS ORDERED: RANITIDINE HCL 150 MG TAB PO SCH (09:00)
--- NOTE | 2016-11-14 09:39 | EKG ---
Date Performed: 11/14/2016 Time Performed: 05:37:03 PTAGE: 89 years EKG: SINUS BRADYCARDIA WITH SINUS ARRHYTHMIA WITH FIRST DEGREE AV BLOCK RIGHT AXIS DEVIATION INC OMPLETE RIGHT BUNDLE BRANCH BLOCK SEPTAL MYOCARDIAL INFARCTION ABNORMAL ECG PREVIOUS TRACING : 11/14/2016 05.36 Compared to previous tracing, PVCs are no longer present. DOCTOR: Sohail Lainez Interpretating Date/Time 11/17/2016 07:20:12
[2016-11-14] MEDS ORDERED: SODIUM CHLOR 0.9% 1000 ML INJ 1,000 ML IV PRN ×3 (09:58)
[2016-11-14] MEDS ORDERED: NITROGLYCERIN 0.4 MG SL 25 TABS/BTL SL PRN (10:00)
[2016-11-14] MEDS ORDERED: GELATIN 12 MM/7 MM FOAM TOP PRN (10:00)
[2016-11-14] MEDS ORDERED: diphenhydrAMINE HCL 25 MG CAP PO PRN (10:00)
[2016-11-14] MEDS ORDERED: ONDANSETRON HCL 4 MG/2 ML VIAL IV PRN (10:00)
[2016-11-14] MEDS ORDERED: cloNIDine HCL 0.1 MG TAB PO PRN (10:00)
[2016-11-14] MEDS ORDERED: HEPARIN SODIUM - IV 10,000 UNITS/10 ML VIAL PRN (10:00)
[2016-11-14] MEDS ORDERED: HEPARIN SODIUM - IV 10,000 UNITS/10 ML VIAL IVF PRN (10:00)
[2016-11-14] MEDS ORDERED: ALBUMIN HUMAN 25% 25 GM/100 ML BAGP IV PRN (10:00)
[2016-11-14] MEDS ORDERED: SODIUM CHLORIDE 0.9% FLUSH 5 ML FLUSH IVF PRN (10:00)
[2016-11-14] MEDS ORDERED: GENTAMICIN SULFATE (DIALYSIS USE ONLY) 20 MG/2 ML VIAL IV PRN (10:00)
[2016-11-14] MEDS ORDERED: MANNITOL 12.5 GM/50 ML VIAL IV PRN (10:00)
--- NOTE | 2016-11-14 10:06 | PD.ORT.PN ---
Subjective Subjective Remarks s/p fall at [facility] patient usually confined to wheelchair. has multiple medical issues and is a dialysis patient Objective Vitals Vital Signs Date Time Temp Pulse Resp B/P Pulse Ox O2 Delivery O2 Flow Rate FiO2 11/14/16 09:00 97.9 48 14 135/63 96 11/14/16 08:00 52 16 131/60 98 Nasal Cannula 2 11/14/16 06:23 59 14 120/56 98 Nasal Cannula 2 11/14/16 05:32 16 93 Room Air 11/14/16 03:43 58 16 96 Nasal Cannula 4 11/14/16 03:39 98.1 55 16 134/64 96 Result Diagram: 11/14/1644411/14/16444 Other Results Laboratory Tests Test 11/14/16 04:45 Prothrombin Time 11.4 SEC (9.8-11.6) Prothromb Time International 1.0 RATIO Ratio Imaging Last 24 hours Impressions Knee X-Ray 11/14/16444 Signed Impressions: Service Date/Time: Monday, November 14, 2016 04:40 - CONCLUSION: 1. Osseous demineralization but no acute fracture. 2. Osteoarthritic changes. 3. Dense atherosclerotic calcification of the regional vasculature, including a probable in situ fem-popliteal bypass graft. Carson Stevens MD Hip and Pelvis X-Ray 11/14/16444 Signed Impressions: Service Date/Time: Monday, November 14, 2016 04:35 - CONCLUSION: 1. Diffuse osseous demineralization with a subcapital fracture of the right hip. 2. Dense atherosclerotic calcification of the regional vasculature. Carson Stevens MD Chest X-Ray 11/14/16 0413 Signed Impressions: Service Date/Time: Monday, November 14, 2016 04:31 - CONCLUSION: 1. Left basilar consolidation/effusion. 2. Focal pleural thickening and pleural parenchymal scarring laterally in the right lower lung. 3. Prior CABG. Abandoned epicardial pacer wires. Extensive stenting of the right upper extremity vasculature. 4. Borderline prominent but well compensated heart Carson Stevens MD Objective Remarks RLE: pain with motion. nvi Assessment & Plan Assessment and Plan 1) Right Subcapital Femoral Neck Fx -will eventually need a hemiarthroplasty of right hip -patient not stable for surgery today. will need dialysis -spoke with son who has consented to surgery once she is medically stable -will proceed with dialysis today and plan for surgery tomorrow -resume diet -NPO after MN -sign consents Kel Dumont Nov 14, 2016 10:06
--- NOTE | 2016-11-14 10:18 | PD.CONS ---
HPI Service Nephrology Consult Requested By Dr. George Reason for Consult Known ESRD Primary Care Physician Non-Staff History of Present Illness The patient is an 89 yo [place] female who is known to our services for ESRD on HD. Her typical dialysis days are TTS. Spoke to Sagrario who is the charge nurse at [facility] and says that yesterday she was sitting in her wheelchair in her room and apparently reached to grab something off of a side table and fell out of her chair. The incident was not witnessed, but the RN and BROWN SOURER on the floor went to the room and got her back in her chair. She was not complaining of pain at the time, but started to complain at 0200 when EMS was called. RN says that she denied hitting her head or any LOC at the time of event. Spoke to yuliya who plans on doing partial hip replacement in the AM. (Gaviota Nicholson) Review of Systems ROS Limitations: Clinical Condition (Gaviota Nicholson) Past Family Social History Allergies: Coded Allergies: Adhesives (Verified Adverse Reaction, Severe, 11/14/16) Denies hives from tape, states, "I have very thin skin and the adhesive tears my skin." Penicillin (Verified Adverse Reaction, Intermediate, NAUSEA, 11/14/16) States, "I am taking an antibiotic in the Penicillin family right now without any problem. They give me nausea medicine." Past Medical History ESRD on HD TTS Hypertension Hyperlipidemia Hypothyroidism Coronary artery disease Peripheral vascular disease Paroxysmal atrial fibrillation Macular degeneration Congestive heart failure with last ejection fraction at 35% noted in June History of 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 Past Surgical History Tricuspid valve replacement AV fistula for dialysis placement Reported Medications Reported Meds & Active Scripts Active Amlodipine (Amlodipine Besylate) 5 Mg Tab 5 Mg PO DAILY Dulcolax Supp (Bisacodyl) 10 Mg Supp 10 Mg RECTAL DAILY PRN Vitamin D3 (Cholecalciferol) 2,000 Unit Chew 2,000 Units CHEW DAILY Plavix (Clopidogrel Bisulfate) 75 Mg Tab 75 Mg PO DAILY Colace (Docusate Sodium) 100 Mg Cap 100 Mg PO DAILY PRN Lasix (Furosemide) 20 Mg Tab 20 Mg PO DAILY Lovastatin 20 Mg Tab 20 Mg PO DAILY Miralax Powder (Polyethylene Glycol 3350 Powder) 17 Gm Powd 17 Gm PO DAILY Mix and dissolve one measuring cap-ful (17 grams) in water or juice. Zofran (Ondansetron HCl) 4 Mg Tab 4 Mg PO Q8HR PRN Phoslo (Calcium Acetate (Phosphate Binder)) 667 Mg Cap 667 Mg PO TID Zoloft (Sertraline HCl) 25 Mg Tab 25 Mg PO DAILY Trazodone (Trazodone HCl) 50 Mg Tab 50 Mg PO HS Tylenol (Acetaminophen) 325 Mg Cap 325 Mg PO Q6H PRN Levothyroxine (Levothyroxine Sodium) 125 Mcg Tab 125 Mcg PO DAILY Reported Lovastatin 40 Mg Tab 40 Mg PO DAILY Zantac (Ranitidine HCl) 150 Mg Tab 75 Mg PO DAILY Levothyroxine (Levothyroxine Sodium) 112 Mcg Tab 112 Mcg PO DAILY Atrovent HFA 12.9 GM Inh (Ipratropium Dendron) 17 Mcg/Act Aer 2 Puff INH Q6HR PRN Nepro (Nutritional Supplements) 1 Liq Liq 1 Can PO DAILY Xalatan Opth Drops (Latanoprost) 0.005% Drops 1 Drop EACH EYE HS Nephro-Donald (B-Complex W/ C & Folic Acid) 1 Tab 1 Tab PO DAILY Aspirin 81 (Aspirin) 81 Mg Tabdr 81 Mg PO DAILY Fleet Enema Rectal (Sodium Phosphates Rectal) 7-19 Gm/118 Ml Enem 118 Ml RECTAL DAILY PRN Ipratropium Nasal Unknown Strength [place] Unknown Dose Milk of Magnesia Liq (Magnesium Hydroxide) 400 Mg/5 Ml Susp Nephro-Donald Rx (Vitamin B Cmplx/Vit C/Folic AC) Unknown Strength Tab Unknown Dose PO Active Ordered Medications Current Medications Medications (Trade) Dose Ordered Sig/Tavares Route Start Time Stop Time Status Last Admin (NS 1000 ml Inj) 1,000 ml @ 0 mls/hr [id number] IV 11/14/16 04:45 11/14/16 06:23 (NS Flush) 2 ml UNSCH PRN FLUSH 11/14/16 07:00 (NS Flush) 2 ml BID FLUSH 11/14/16 09:00 (Tylenol) 650 mg Q4H PRN PO 11/14/16 07:00 (Zofran Inj) 4 mg Q6H PRN IVP 11/14/16 07:00 (Narcan Inj) 0.4 mg UNSCH PRN IV 11/14/16 07:00 (Dulcolax Supp) 10 mg DAILY PRN RECTAL 11/14/16 07:00 (Phoslo) 667 mg TID PO 11/14/16 09:00 (Colace) 100 mg DAILY PRN PO 11/14/16 07:00 (Lasix) 20 mg DAILY PO 11/14/16 09:00 (Xalatan 0.005% Opth Soln) 1 drop HS EACH EYE 11/14/16 21:00 (Synthroid) 112 mcg DAILY@06 PO 11/14/16 07:00 11/14/16 08:02 (Zantac) 75 mg DAILY PO 11/14/16 09:00 (Zoloft) 25 mg DAILY PO 11/14/16 09:00 (Desyrel) 50 mg HS PO 11/14/16 21:00 (Nephrocaps) 1 cap DAILY PO 11/14/16 09:00 (Vitamin D3) 2,000 units DAILY PO 11/14/16 09:00 (Pravachol) 40 mg DAILY PO 11/14/16 09:00 (Morphine Inj) 2 mg Q4HR PRN IV PUSH 11/14/16 07:45 Family History Noncontributory Social History Resides at [facility]. No tobacco, alcohol or illicit drug use. Healthcare Surrogate: Cristóbal Richey [phone]. (Gaviota Nicholson) Physical Exam Vital Signs Vital Signs Date Time Temp Pulse Resp B/P Pulse Ox O2 Delivery O2 Flow Rate FiO2 11/14/16 09:00 97.9 48 14 135/63 96 11/14/16 08:00 52 16 131/60 98 Nasal Cannula 2 11/14/16 06:23 59 14 120/56 98 Nasal Cannula 2 11/14/16 05:32 16 93 Room Air 11/14/16 03:43 58 16 96 Nasal Cannula 4 11/14/16 03:39 98.1 55 16 134/64 96 Physical Exam GENERAL: Layingin bed sleeping. Does rouse when touched, but goes immediately back to sleep. SKIN: Warm and dry. HEAD: Atraumatic. Normocephalic. EYES: Pupils equal and round. No scleral icterus. No injection or drainage. ENT: No nasal bleeding or discharge. Mucous membranes pink and moist. NECK: Trachea midline. No JVD. CARDIOVASCULAR: Regular rate and rhythm. RESPIRATORY: No accessory muscle use. Clear to auscultation. Breath sounds equal bilaterally. GASTROINTESTINAL: Abdomen soft, non-tender, nondistended. Hepatic and splenic margins not palpable. MUSCULOSKELETAL: Extremities without clubbing, cyanosis. No edema. Abrasions on bilateral anterior shins covered with dressings. NEUROLOGICAL: Drowsy PSYCHIATRIC: Drowsy Laboratory Laboratory Tests Test 11/14/16 04:45 White Blood Count 16.7 Red Blood Count 3.66 Hemoglobin 10.9 Hematocrit 33.3 Mean Corpuscular Volume 91.1 Mean Corpuscular Hemoglobin 29.7 Mean Corpuscular Hemoglobin 32.6 Concent Red Cell Distribution Width 15.0 Platelet Count 268 Mean Platelet Volume 7.8 Neutrophils (%) (Auto) 81.7 Lymphocytes (%) (Auto) 9.1 Monocytes (%) (Auto) 6.4 Eosinophils (%) (Auto) 2.2 Basophils (%) (Auto) 0.6 Neutrophils # (Auto) 13.6 Lymphocytes # (Auto) 1.5 Monocytes # (Auto) 1.1 Eosinophils # (Auto) 0.4 Basophils # (Auto) 0.1 CBC Comment DIFF FINAL Differential Comment Prothrombin Time 11.4 Prothromb Time International 1.0 Ratio Activated Partial 30.0 Thromboplast Time Sodium Level 130 Potassium Level 6.0 Chloride Level 96 Carbon Dioxide Level 23.4 Anion Gap 11 Blood Urea Nitrogen 46 Creatinine 5.35 Estimat Glomerular Filtration 8 Rate Random Glucose 116 Calcium Level 8.8 Phosphorus Level 4.3 Magnesium Level 2.6 Total Bilirubin 0.4 Aspartate Amino Transf 17 (AST/SGOT) Alanine Aminotransferase 23 (ALT/SGPT) Alkaline Phosphatase 141 Total Protein 8.1 Albumin 3.5 25-Hydroxy Vitamin D Total 32.1 Thyroid Stimulating Hormone 0.568 3rd Gen (Gaviota Nicholson) Result Diagram: 11/14/1644411/14/16444 Imaging Last Impressions Knee X-Ray 11/14/16444 Signed Impressions: Service Date/Time: Monday, November 14, 2016 04:40 - CONCLUSION: 1. Osseous demineralization but no acute fracture. 2. Osteoarthritic changes. 3. Dense atherosclerotic calcification of the regional vasculature, including a probable in situ fem-popliteal bypass graft. Carson Stevens MD Hip and Pelvis X-Ray 11/14/16 0445 Signed Impressions: Service Date/Time: Monday, November 14, 2016 04:35 - CONCLUSION: 1. Diffuse osseous demineralization with a subcapital fracture of the right hip. 2. Dense atherosclerotic calcification of the regional vasculature. Carson Stevens MD Chest X-Ray 11/14/16 0413 Signed Impressions: Service Date/Time: Monday, November 14, 2016 04:31 - CONCLUSION: 1. Left basilar consolidation/effusion. 2. Focal pleural thickening and pleural parenchymal scarring laterally in the right lower lung. 3. Prior CABG. Abandoned epicardial pacer wires. Extensive stenting of the right upper extremity vasculature. 4. Borderline prominent but well compensated heart Carson Stevens MD (Gaviota Nicholson) Assessment and Plan Problem List: (1) ESRD (end stage renal disease) on dialysis Plan: HD today. Will continue on TTS schedule. jar filler has been contacted. Hyperkalemia will be corrected with HD. s/p medication treatment in ED. Awaiting repeat lab. Continue on PhosLo. Check iPTH and Vit D levels. Medications should be adjusted for the patient's ESRD. Avoid gadolinium (2) Hyperkalemia Plan: As above, will correct with HD. Monitor. Diet restricted. (3) Leukocytosis Plan: Likely from stress. Work up as indicated by primary (4) Subcapital fracture of hip Plan: Mgmt as per Ortho. Planned partial hip replacement tomorrow by Ortho. (5) Anemia of renal disease Plan: Monitor. Will give Epogen as indicated. (Gaviota Nicholson) Assessment and Plan The exam, history, and the medical decision-making described in the above note were completed with the assistance of the PAMartha. I reviewed and agree with the findings presented. (Pio Morton MD) Problem Qualifiers (1) Leukocytosis: Qualified Code: D72.828 - Other elevated white blood cell (WBC) count Gaviota Nicholson Nov 14, 2016 10:18 Pio Morton MD Nov 15, 2016 18:15
--- NOTE | 2016-11-14 10:19 | MB ---
cc: MONO KNOX DATE OF CONSULTATION: 11/14/2016 REASON FOR CONSULTATION Right femoral neck fracture. HISTORY OF PRESENT ILLNESS Mrs. Richey is an 89-year-old female who had a fall. She has a history of hypertension, hypothyroidism, coronary artery disease, renal failure on dialysis and CHF. She resides at [facility]. She fell yesterday afternoon. She had immediate right hip pain. She had difficulty standing or ambulating. She states that she normally walks reasonably well. Pain is worse with movement and is improved with rest. Her only complaint is her right hip pain. She denies any dizziness, syncope or loss of consciousness. PAST MEDICAL HISTORY ILLNESSES 1. Hypertension. 2. High cholesterol. 3. Hypothyroidism. 4. Coronary artery disease. 5. Peripheral vascular disease. 6. Renal failure. 7. Atrial fibrillation. 8. Macular degeneration. 9. CHF. 10.History of CVA. 11.Valvular heart disease. SURGERIES 1. Tricuspid valve replacement. 2. AV fistula placement for dialysis. MEDICATIONS 1. Dulcolax. 2. Vitamin-D3. 3. Plavix. 4. Colace. 5. Lasix. 6. Lovastatin. 7. MiraLax. 8. Zofran. 9. PhosLo. 10.Zoloft. 11.Trazodone. 12.Tylenol. 13.Levothyroxine. ALLERGIES 1. ADHESIVE TAPE. 2. PENICILLIN. FAMILY HISTORY Noncontributory. SOCIAL HISTORY The patient lives in [facility]. She denies alcohol, tobacco or drug use. REVIEW OF SYSTEMS The patient denies headache, visual changes, neck pain, chest pain, shortness of breath, abdominal pain, nausea, vomiting or recent weight loss. She complains of right hip pain. Pain is worse with movement. She also denies dizziness or syncope. PHYSICAL EXAMINATION GENERAL: The patient is a well-developed, well-nourished thin 89-year-old female in no acute distress. She is awake and alert. She is alert and oriented. VITAL SIGNS: Temperature 98.1, pulse 52, respirations 16, blood pressure 131/60. O2 sat is 98% on two liters nasal cannula. HEAD: The patient is normocephalic. Pupils are equal. NECK: Soft, nontender. Trachea is midline. ABDOMEN: Soft, nontender, nondistended. EXTREMITIES: Examination of bilateral upper extremities reveals no significant pain with shoulder, elbow or wrist motion. She has intact sensation in all fingers. She has good capillary refill in all fingers. Radial pulses are palpable. Yard Pipe Grader strength is +5 bilaterally. Examination of left leg reveals no pain with hip, knee or ankle motion. Skin is intact. Dorsalis pedis pulse is palpable. Sensation is intact. Examination of right leg reveals pain with any hip motion. She has no tenderness around her knee, tibia or ankle. Skin is intact. Dorsalis pedis pulse is palpable. Sensation is intact. X-RAYS X-rays of the right hip were reviewed. X-rays reveal a displaced right femoral neck fracture. IMPRESSION 1. Displaced right femoral neck fracture. 2. CHF. 3. End-stage renal failure. 4. Elevated potassium. 5. History of TIAs. PLAN The treatment options were discussed with the patient. At this point I would recommend right hip hemiarthroplasty. Currently she is needing to undergo dialysis. She may also need cardiac clearance. Risks of surgery include bleeding, infection, injuries to arteries, nerves and blood vessels, hip dislocation, leg length discrepancies, femur fracture as well as medical complications including blood clot, stroke, heart attack and . If the patient becomes medically cleared surgery would be her best option. All questions were answered. A mid-level provider in my office (nurse practitioner or physician physiotherapy assistant) may see this patient on follow-up visits and continue to implement the objectives of this plan including: Starting or adjusting medications, injections , cast application, orthotics, brace application, physical therapy, radiological studies (including x-ray, MRI, CT, ultrasound, bone scan), vascular studies, neurologic studies, specialist consultation, and proceeding with surgical management, as appropriate. MD SPENCER Dodson/RONNIE /9:41 AM /10:11 AM JENNIFER
[2016-11-14] MEDS: FUROSEMIDE 20 MG TAB PO SCH (10:30)
[2016-11-14] MEDS: SODIUM CHLORIDE 0.9% FLUSH 5 ML FLUSH FLUSH SCH ×2 (10:30→20:12)
[2016-11-14] MEDS: CHOLECALCIFEROL (VIT D3) 1000 UNIT TAB PO SCH (10:30)
[2016-11-14] MEDS: SERTRALINE HCL 50 MG TAB PO SCH (10:30)
[2016-11-14] MEDS: PRAVASTATIN SOD 40 MG TAB PO SCH (10:30)
[2016-11-14] MEDS: CALCIUM ACETATE 667 MG CAP PO SCH ×3 (10:30→17:46)
[2016-11-14] MEDS: VITAMIN B CMPLX/VITC/FOLIC AC CAP PO SCH (10:30)
[2016-11-14] MEDS: FAMOTIDINE 20 MG TAB PO SCH ×2 (12:06→20:12)
[2016-11-14] MEDS: ACETAMINOPHEN 325 MG TAB PO PRN (12:07)
[2016-11-14] MEDS ORDERED: traMADol HCL 50 MG TAB PO STA (13:35)
[2016-11-14 13:42] LABS: POTASSIUM 3.8 MEQ/L (3.5-5.1)
[2016-11-14] MEDS ORDERED: traMADol HCL 50 MG TAB PO PRN (13:45)
[2016-11-14] MEDS ORDERED: ACETAMINOPHEN 1000 MG/100 ML VIAL IV ONE (14:00)
--- NOTE | 2016-11-14 16:32 | OTSOAPIP ---
TIME SESSION COMPLETED: PM HELD EVALUATION PATIENT WAITING TO UNDER REPAIR OF RIGHT DISPLACED FEMUR HEAD PLAN: WILL SEE PATIENT NEXT TREATMENT DAY INTERDISCIPLINARY COMMUNICATION: SPOKE WITH NURSING Therapist: TIM FRIAS/Amanda Signature on file
[2016-11-14] MEDS: traZODone HCL 50 MG TAB PO SCH (20:12)
[2016-11-14] MEDS: LATANOPROST 0.005% OPHT SOLN 2.5 ML BTL EACH EYE SCH (21:00)
[2016-11-15] VITALS (11 sets, daily range): BP systolic 100–121; BP diastolic 53–76; PULSE 64–99; RESP 11–28; TEMP 97.2–99.1; O2SAT 94–100
[2016-11-15 05:43] LABS: AUTOMATED NEUTROPHIL # 10.7 TH/MM3 (1.8-7.7); BASOPHIL % 0.3 % (0.0-2.0); EOSINOPHIL # 0.6 TH/MM3 (0-0.4); EOSINOPHIL % 4.7 % (0.0-4.0); HEMATOCRIT 31.5 % (35.0-46.0); HEMO FLAGS DIFF FINAL; LYMPH % 6.8 % (9.0-44.0); LYMPHOCYTE # 0.9 TH/MM3 (1.0-4.8); MEAN CELL VOLUME 90.2 FL (80.0-100.0); MEAN CORPUSCULAR HEMOGLOBIN 30.4 PG (27.0-34.0); MEAN CORPUSCULAR HGB CONC 33.7 % (32.0-36.0); MONO % 6.4 % (0.0-8.0); NEUT % 81.8 % (16.0-70.0); PLATELET COUNT 244 TH/MM3 (150-450); RED BLOOD COUNT 3.49 MIL/MM3 (4.00-5.30); RED CELL DISTRIBUTION WIDTH 15.1 % (11.6-17.2); WHITE BLOOD COUNT 13.1 TH/MM3 (4.0-11.0)
[2016-11-15 05:55] LABS: BICARBONATE 27.9 MEQ/L (21.0-32.0); POTASSIUM 4.6 MEQ/L (3.5-5.1)
[2016-11-15] MEDS: LEVOTHYROXINE SODIUM 112 MCG TAB PO SCH (06:08)
[2016-11-15 06:15] LABS: INDIRECT BILIRUBIN 0.4 MG/DL (0.0-0.8); TOTAL BILIRUBIN ADULT 0.5 MG/DL (0.2-1.0)
[2016-11-15] MEDS ORDERED: DEXTROSE 50% IN WATER 50 ML VIAL(D50) IV PUSH ONE (06:15)
[2016-11-15] MEDS ORDERED: DEXTROSE 50% IN WATER 50 ML VIAL(D50) IV PUSH PRN (06:30)
[2016-11-15] MEDS ORDERED: GLUCAGON 1 MG/ML VIAL OTHER PRN (07:00)
--- NOTE | 2016-11-15 07:11 | PD.ORT.PN ---
Subjective Subjective Remarks Patient comfortable with daughter bedside Objective Vitals Vital Signs Date Time Temp Pulse Resp B/P Pulse Ox O2 Delivery O2 Flow Rate FiO2 11/15/16 04:00 97.9 81 20 121/59 98 11/15/16 04:00 81 11/15/16 02:00 99 11/15/16 00:00 97.3 98 17 104/53 100 11/15/16 00:00 98 11/14/16 22:00 101 11/14/16 20:00 98.1 100 18 123/58 100 11/14/16 20:00 100 11/14/16 19:34 99 Nasal Cannula 3.00 11/14/16 19:00 99 Nasal Cannula 3.00 11/14/16 16:00 97.9 55 22 124/60 100 11/14/16 15:45 100 Nasal Cannula 3.00 11/14/16 12:00 97.1 65 18 118/56 96 11/14/16 09:00 97.9 48 14 135/63 96 11/14/16 08:00 52 16 131/60 98 Nasal Cannula 2 I/O 11/14/16 11/14/16 11/14/16 11/15/16 11/15/16 11/15/16 07:00 15:00 23:00 07:00 15:00 23:00 Intake Total 685 ml 319 ml Output Total 0 ml 2000 ml Balance 685 ml -1681 ml Intake Oral 400 ml 100 ml IV Total 285 ml 219 ml Output Urine Total 0 ml 0 ml Hemodialysis 2000 ml # Bowel Movements 0 Result Diagram: 11/15/16 0410 11/15/16 041 Imaging Last 24 hours Impressions Knee X-Ray 11/14/16444 Signed Impressions: Service Date/Time: Monday, November 14, 2016 04:40 - CONCLUSION: 1. Osseous demineralization but no acute fracture. 2. Osteoarthritic changes. 3. Dense atherosclerotic calcification of the regional vasculature, including a probable in situ fem-popliteal bypass graft. Carson Stevens MD Hip and Pelvis X-Ray 11/14/16444 Signed Impressions: Service Date/Time: Monday, November 14, 2016 04:35 - CONCLUSION: 1. Diffuse osseous demineralization with a subcapital fracture of the right hip. 2. Dense atherosclerotic calcification of the regional vasculature. Carson Stevens MD Chest X-Ray 11/14/16 0413 Signed Impressions: Service Date/Time: Monday, November 14, 2016 04:31 - CONCLUSION: 1. Left basilar consolidation/effusion. 2. Focal pleural thickening and pleural parenchymal scarring laterally in the right lower lung. 3. Prior CABG. Abandoned epicardial pacer wires. Extensive stenting of the right upper extremity vasculature. 4. Borderline prominent but well compensated heart Carson Stevens MD Objective Remarks RLE: pain with motion. nvi Assessment & Plan Assessment and Plan 1) Right Subcapital Femoral Neck Fx - hemiarthroplasty of right hip today Medical management for low blood sugar reading was 37 overnight and has increased to 80 -spoke with son who has consented to surgery once she is medically stable -NPO -sign consents SUMA SAHNI PA-C Nov 15, 2016 07:11
[2016-11-15] MEDS: VITAMIN B CMPLX/VITC/FOLIC AC CAP PO SCH (09:00)
[2016-11-15] MEDS: PRAVASTATIN SOD 40 MG TAB PO SCH (09:00)
[2016-11-15] MEDS: CHOLECALCIFEROL (VIT D3) 1000 UNIT TAB PO SCH (09:00)
[2016-11-15] MEDS: SERTRALINE HCL 50 MG TAB PO SCH (09:00)
[2016-11-15] MEDS: SODIUM CHLORIDE 0.9% FLUSH 5 ML FLUSH FLUSH SCH ×2 (09:00→21:00)
[2016-11-15] MEDS: CALCIUM ACETATE 667 MG CAP PO SCH ×3 (09:00→17:41)
[2016-11-15] MEDS: DEXT 5%-NACL 0.45% 1000 ML INJ 1,000 ML IV SCH ×2 (09:00→12:45)
[2016-11-15] MEDS: FAMOTIDINE 20 MG TAB PO SCH ×2 (09:00→21:00)
[2016-11-15] MEDS: FUROSEMIDE 20 MG TAB PO SCH (09:00)
[2016-11-15] MEDS ORDERED: KETAMINE HCL 500 MG/5 ML VIAL ONE (09:10)
--- NOTE | 2016-11-15 09:10 | HHI.HP ---
[facility] Service Family Medicine Primary Care Physician Non-Staff Admission Diagnosis right femoral neck fx, hyperkalemia, dialysis patient Diagnoses: (1) Fracture of femoral neck, right Diagnosis: Principal (2) ESRD (end stage renal disease) on dialysis Diagnosis: Principal (3) Hyperkalemia Diagnosis: Principal (4) Heart block AV complete Diagnosis: Principal (5) CHF, chronic Diagnosis: Principal (6) Nutrition, metabolism, and development symptoms International Travel<30 Days: No Contact w/Intl Traveler<30days: No Known Affected Area: No History of Present Illness Ms Richey is an 89-year-old female with past medical history significant for HTN , hypothyroidism, CAD, ESRD on dialysis, and CHF who presented with leg pain after a fall. Patient is a resident of [facility] where she fell the afternoon before she was admitted. Mechanism of fall was unable to be elicited due to patient's speech impairment. She was experiencing pain in her right anterior leg and knee that did not improve with Tylenol. She was sent to the ED and found to have a right subcapital hip fracture, hyperkalemia, and heart block. She was admitted to the hospital and given dialysis the day of admission to adjust her electrolytes and fluid status prior to surgery which was done today. She did well with surgery and was alert and conversant in the room. However, she evidently bit the nurse after anesthesia and has a history of confusion/ agitation with narcotics. Yesterday, her son discussed that she had poor tolerance for narcotics and could hallucinate and be "crazy" with narcotics. She did fine with 2 mg of morphine in the ED on admission but bit her nurse when given 4 mg or morphine after surgery. We discussed, her son and daughter and Medical team that we would try to stick with tramadol only but if her pain is very bad, only 1 mg or so of morphine would be given. Her breathing is fine after surgery and her speech is always impaired but she was answering questions appropriately this afternoon. Review of Systems Other Constitutional: COMPLAINS OF: Dizziness, DENIES: Fatigue, Fever, Chills Eyes: DENIES: Blurred vision Ears, nose, mouth, throat: DENIES: Throat pain Respiratory: DENIES: Cough, Wheezing, Shortness of breath Cardiovascular: DENIES: Chest pain, Palpitations, Lower Extremity Edema Gastrointestinal: DENIES: Abdominal pain, Nausea, Vomiting Genitourinary: DENIES: Dysuria Musculoskeletal: COMPLAINS OF: Joint pain, Muscle aches Hematologic/lymphatic: COMPLAINS OF: Bruising Neurologic: COMPLAINS OF: Abnormal gait, Poor Balance Psychiatric: COMPLAINS OF: Depression Past Family Social History Past Medical History Hypertension Hyperlipidemia Hypothyroidism Coronary artery disease Peripheral vascular disease End-stage renal disease on dialysis Paroxysmal atrial fibrillation Macular degeneration Congestive heart failure with last ejection fraction at 35% noted in June History of 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 Past Surgical History Tricuspid valve replacement AV fistula for dialysis placement Reported Medications Active Dulcolax Supp (Bisacodyl) 10 Mg Supp 10 Mg RECTAL DAILY PRN Vitamin D3 (Cholecalciferol) 2,000 Unit Chew 2,000 Units CHEW DAILY Plavix (Clopidogrel Bisulfate) 75 Mg Tab 75 Mg PO DAILY Colace (Docusate Sodium) 100 Mg Cap 100 Mg PO DAILY PRN Lasix (Furosemide) 20 Mg Tab 20 Mg PO DAILY Lovastatin 20 Mg Tab 20 Mg PO DAILY Miralax Powder (Polyethylene Glycol 3350 Powder) 17 Gm Powd 17 Gm PO DAILY Mix and dissolve one measuring cap-ful (17 grams) in water or juice. Zofran (Ondansetron HCl) 4 Mg Tab 4 Mg PO Q8HR PRN Phoslo (Calcium Acetate (Phosphate Binder)) 667 Mg Cap 667 Mg PO TID Zoloft (Sertraline HCl) 25 Mg Tab 25 Mg PO DAILY Trazodone (Trazodone HCl) 50 Mg Tab 50 Mg PO HS Tylenol (Acetaminophen) 325 Mg Cap 325 Mg PO Q6H PRN Levothyroxine (Levothyroxine Sodium) 125 Mcg Tab 125 Mcg PO DAILY Reported Lovastatin 40 Mg Tab 40 Mg PO DAILY Zantac (Ranitidine HCl) 150 Mg Tab 75 Mg PO DAILY Levothyroxine (Levothyroxine Sodium) 112 Mcg Tab 112 Mcg PO DAILY Atrovent HFA 12.9 GM Inh (Ipratropium Rhodes) 17 Mcg/Act Aer 2 Puff INH Q6HR PRN Nepro (Nutritional Supplements) 1 Liq Liq 1 Can PO DAILY Xalatan Opth Drops (Latanoprost) 0.005% Drops 1 Drop EACH EYE HS Nephro-Donald (B-Complex W/ C & Folic Acid) 1 Tab 1 Tab PO DAILY Aspirin 81 (Aspirin) 81 Mg Tabdr 81 Mg PO DAILY Fleet Enema Rectal (Sodium Phosphates Rectal) 7-19 Gm/118 Ml Enem 118 Ml RECTAL DAILY PRN Ipratropium Nasal Unknown Strength Alda Unknown Dose Milk of Magnmaddie Liq (Magnesium Hydroxide) 400 Mg/5 Ml Susp Nephro-Donald Rx (Vitamin B Cmplx/Vit C/Folic AC) Unknown Strength Tab Unknown Dose PO Allergies: Coded Allergies: Adhesives (Verified Adverse Reaction, Severe, 11/14/16) Denies hives from tape, states, "I have very thin skin and the adhesive tears my skin." Penicillin (Verified Adverse Reaction, Intermediate, NAUSEA, 11/14/16) States, "I am taking an antibiotic in the Penicillin family right now without any problem. They give me nausea medicine." Family History Unable to obtain as patient is speech impaired Social History Resides at [facility]. No tobacco, alcohol or illicit drug use. Healthcare Surrogate: Cristóbal Richey [phone]. DNR. Physical Exam Vital Signs Vital Signs Date Time Temp Pulse Resp B/P Pulse Ox O2 Delivery O2 Flow Rate FiO2 11/15/16 08:00 98.0 99 19 109/53 98 11/15/16 08:00 99 11/15/16 07:00 100 Nasal Cannula 3.00 11/15/16 06:00 70 11/15/16 04:00 97.9 81 20 121/59 98 11/15/16 04:00 81 11/15/16 02:00 99 11/15/16 00:00 97.3 98 17 104/53 100 11/15/16 00:00 98 11/14/16 22:00 101 11/14/16 20:00 98.1 100 18 123/58 100 11/14/16 20:00 100 11/14/16 19:34 99 Nasal Cannula 3.00 11/14/16 19:00 99 Nasal Cannula 3.00 11/14/16 16:00 97.9 55 22 124/60 100 11/14/16 15:45 100 Nasal Cannula 3.00 11/14/16 12:00 97.1 65 18 118/56 96 Physical Exam GENERAL: This is a frail elderly female patient, in no apparent distress but still a little sedated appearing after surgery SKIN: Several bruises on right lower extremity. Right lower extremity skin tear and left lower extremity hematoma covered in dressings. Cool and dry. HEAD: Atraumatic. Normocephalic. No temporal or scalp tenderness. EYES: Pupils equal round and reactive. Extraocular motions intact. No scleral icterus. No injection or drainage. ENT: Nose without bleeding, purulent drainage or septal hematoma. Airway patent. NECK: Trachea midline. No JVD or lymphadenopathy. Supple, nontender, no meningeal signs. CARDIOVASCULAR: Regular rate and rhythm. 2/6 JOE. RESPIRATORY: Clear to auscultation. Breath sounds equal bilaterally. No wheezes , rales, or rhonchi. GASTROINTESTINAL: Abdomen soft, non-tender, nondistended. No hepato-splenomegaly , or palpable masses. No guarding. MUSCULOSKELETAL: No joint tenderness bilaterally. Pain with external and internal rotation of right hip. No calf tenderness. NEUROLOGICAL: Awake and alert. Cranial nerves II through XII intact. Motor and sensory grossly within normal limits. Speech difficult to comprehend at length. Laboratory Laboratory Tests Test 11/14/16 11/15/16 13:10 04:10 Potassium Level 3.8 4.6 25-Hydroxy Vitamin D Total 30.7 Parathyroid Hormone (Intact) 146.5 White Blood Count 13.1 Red Blood Count 3.49 Hemoglobin 10.6 Hematocrit 31.5 Mean Corpuscular Volume 90.2 Mean Corpuscular Hemoglobin 30.4 Mean Corpuscular Hemoglobin 33.7 Concent Red Cell Distribution Width 15.1 Platelet Count 244 Mean Platelet Volume 8.0 Neutrophils (%) (Auto) 81.8 Lymphocytes (%) (Auto) 6.8 Monocytes (%) (Auto) 6.4 Eosinophils (%) (Auto) 4.7 Basophils (%) (Auto) 0.3 Neutrophils # (Auto) 10.7 Lymphocytes # (Auto) 0.9 Monocytes # (Auto) 0.8 Eosinophils # (Auto) 0.6 Basophils # (Auto) 0.0 CBC Comment DIFF FINAL Differential Comment Sodium Level 135 Chloride Level 96 Carbon Dioxide Level 27.9 Anion Gap 11 Blood Urea Nitrogen 27 Creatinine 3.57 Estimat Glomerular Filtration 12 Rate Random Glucose 37 Calcium Level 8.6 Total Bilirubin 0.5 Direct Bilirubin 0.1 Indirect Bilirubin 0.4 Aspartate Amino Transf 19 (AST/SGOT) Alanine Aminotransferase 18 (ALT/SGPT) Alkaline Phosphatase 132 Total Protein 7.8 Albumin 3.1 Result Diagram: 11/15/1640911/15/16409 Imaging Last Impressions Knee X-Ray 11/14/16444 Signed Impressions: Service Date/Time: Monday, November 14, 2016 04:40 - CONCLUSION: 1. Osseous demineralization but no acute fracture. 2. Osteoarthritic changes. 3. Dense atherosclerotic calcification of the regional vasculature, including a probable in situ fem-popliteal bypass graft. Carson Stevens MD Hip and Pelvis X-Ray 11/14/16444 Signed Impressions: Service Date/Time: Monday, November 14, 2016 04:35 - CONCLUSION: 1. Diffuse osseous demineralization with a subcapital fracture of the right hip. 2. Dense atherosclerotic calcification of the regional vasculature. Carson Stevens MD Chest X-Ray 11/14/16412 Signed Impressions: Service Date/Time: Monday, November 14, 2016 04:31 - CONCLUSION: 1. Left basilar consolidation/effusion. 2. Focal pleural thickening and pleural parenchymal scarring laterally in the right lower lung. 3. Prior CABG. Abandoned epicardial pacer wires. Extensive stenting of the right upper extremity vasculature. 4. Borderline prominent but well compensated heart Carson Stevens MD Assessment and Plan Assessment and Plan Patient is an 89-year-old female with past medical history significant for HTN, hypothyroidism, CAD, ESRD on dialysis, and CHF who presented today with leg pain after a fall and is admitted for right subcapital hip fracture, hyperkalemia, and heart block. Problem List: (1) Heart block AV complete Status: Acute Plan: EKG significant for first degree heart block TSH fine Tele Transcutaneous pacer pads in place (2) Hyperkalemia Status: Acute Plan: Hyperkalemia of 6.0 on admission Dialysis s/p calcium gluconate 1g, sodium bicarb 50meq, insulin 10 units, albuterol neb, D50, and Kayexalate in ED Will obtain Mg and phos Nephrology consulted for Dialysis and will follow (3) Fracture of femoral neck, right Status: Acute Plan: Hip x-ray significant for diffuse osseous demineralization with a subcapital fracture of the right hip. s/p Morphine 2mg IV in ED with improvement in pain, because of concern of her family, she was given tramadol. if she is worse with her pain consider very low dose like 1 mg of morphine q 4 hours - Orthopedic Surgery consulted, operated today - Obtained Vit D level (4) ESRD (end stage renal disease) on dialysis Status: Chronic Plan: Nephrology consulted Dialysis usually on [id number] Continue home dose of Nephrocaps, cholecalciferol, Phoslo, she has secondary hypoparathyroidism (5) CHF, chronic Status: Chronic Plan: Last Echo 07/02/15 significant for EF 35% Continue home dose of Lasix (6) Nutrition, metabolism, and development symptoms Status: Acute Plan: Fluids: None Electrolytes: as above Nutrition: once diet is resumed, patient requires mechanical soft with honey thickened liquids. DVT PPx: SCD's, will hold chemical anticoagulation in anticipation of surgery, often pt starts back with anticoagulation in 24 hours Physician Certification 2 Midnight Certification Type: Admission for Inpatient Services Order for Inpatient Services The services are ordered in accordance with Medicare regulations or non- Medicare payer requirements, as applicable. In the case of services not specified as inpatient-only, they are appropriately provided as inpatient services in accordance with the 2-midnight benchmark. Estimated LOS (days): 4 4 days is the estimated time the patient will need to remain in the hospital, assuming treatment plan goals are met and no additional complications. Post-Hospital Plan: Not yet determined Problem Qualifiers (1) Fracture of femoral neck, right: Qualified Code: S72.001A - Closed fracture of neck of right femur, initial encounter (2) CHF, chronic: Qualified Code: I50.22 - Chronic systolic congestive heart failure No Darden MD Nov 15, 2016 09:10
[2016-11-15] MEDS ORDERED: ceFAZolin INJ 1,000 MG VIAL ONE (09:11)
[2016-11-15] MEDS ORDERED: VANCOMYCIN HCL 1000 MG VIAL ONE ×2 (09:12→09:19)
[2016-11-15] MEDS ORDERED: GENTAMICIN SULFATE 80 MG/2 ML VIAL ONE ×2 (09:12)
[2016-11-15] MEDS ORDERED: SODIUM CHLOR 0.9% 250 ML INJ 250 ML ONE (09:12)
[2016-11-15] MEDS ORDERED: FAMOTIDINE 20 MG/2 ML VIAL ONE (09:26)
[2016-11-15] MEDS ORDERED: SUGAMMADEX SODIUM 200 MG/2 ML VIAL IV PUSH ONE ×2 (11:05)
[2016-11-15] MEDS ORDERED: BACITRACIN TOP OINT 15 GM TUBE ONE (11:13)
[2016-11-15] MEDS ORDERED: ACETAMINOPHEN/HYDROcodone 325 MG/7.5 MG TAB PO PRN (11:15)
[2016-11-15] MEDS ORDERED: MORPHINE SULFATE 4 MG/ML INJ IV PUSH PRN (11:15)
[2016-11-15] MEDS ORDERED: Post-op Orders (for Pharmacy) MISC XX ONE (11:15)
[2016-11-15] MEDS ORDERED: SODIUM CHLORIDE 0.9% FLUSH 5 ML FLUSH IVF PRN (11:15)
--- NOTE | 2016-11-15 11:20 | PD.OP ---
cc: Victorino Sheridan MD Operative Report Date of Surgery: Nov 15, 2016 Preoperative Diagnosis: Displaced right femoral neck fracture Postoperative Diagnosis: Procedure: Right hip hemiarthroplasty Anesthesia: Gen. Surgeon: Victorino Sheridan [facility] Consultant(s): SALOME Reynolds PA-C The surgical procedure was assisted by my physician trade sales assistant. My P.A. presence was necessary throughout this case for the manipulation and positioning of the surgical extremity. My P.A. was assisting me throughout the duration of this procedure. The skill set of a physician trade sales assistant was medically necessary to complete this procedure. During the surgical case the surgical pathologist was working at the back table and the physician trade sales assistant was directly assisting me. Operation and Findings: PLAN OF ACTIVITY Weight bear as tolerated. IMPLANTS USED DePuy Corail size 13 stem with size [46] bipolar head and [+5] neck. DRAIN: 7 mm Ton-Blankenship drain DETAILS OF PROCEDURE This patient was brought into the operating room and placed on the OR table. The patient was given anesthesia. The patient received IV antibiotics. The patient was then placed in lateral decubitus position. The hip and leg were prepped with alcohol, followed by Hibiclens and draped in a usual sterile fashion. Clean air was used for this procedure. Time out procedure was performed. The procedure began with a 5 inch incision over the posterolateral hip. The subcutaneous tissue was dissected with the Bovie. The iliotibial band were split in line with fibers. The Charnley retractor was placed. The piriformis and external rotators were released from the femur and tagged with a #1 Vicryl suture. The capsule is now incised and tagged with #1 Vicryl. The femoral neck fracture was now visualized. A corkscrew was now used to remove the femoral head. The femoral head was sized and measured. Soft tissue was now protected. The hip skid was placed underneath the femoral neck. An oscillating saw was used to make a femoral neck cut. At this point attention was turned to preparation of the proximal femur. A box osteotome was used to remove the lateral cortex of the femoral neck. The T- handle reamer was used to open the femoral canal. Next, the canal was broached. A lateralizing reamer was used to help lateralize the prosthesis. At this point a trial head and neck were placed. The hip was reduced. The patient was found to have excellent stability with good range of motion. Trial components were removed. Soft tissue and bone were thoroughly irrigated. A Corail stem was now opened. The stem was now impacted into the proximal femur. Care was taken to keep appropriate anteversion. The head and neck were now impacted onto the stem. The hip was again reduced. The hip was found to have good range of motion and good stability. Leg lengths were clinically equal. The wound was thoroughly irrigated. The capsule, piriformis and iliotibial band were closed with #1 Vicryl. Subcutaneous tissue was closed with 3-0 Vicryl. The skin was closed with chetna. A sterile dressing was applied with Primapore. The patient was placed into a knee immobilizer. The patient was awakened and transferred to the recovery room in stable condition. Needle and sponge counts were correct. Victorino Sheridan MD Nov 15, 2016 11:20
[2016-11-15] MEDS ORDERED: NORC5TAB PO (11:36)
[2016-11-15] MEDS ORDERED: DO NOT ADM ANY ANTICOAGULANT DRUGS XX PRN (11:37)
[2016-11-15] MEDS ORDERED: WALKER/ADULT/FO1 MIS (11:38)
[2016-11-15] MEDS ORDERED: *morphine SULFATE 8 MG/ML PERIprocedure ONLY ONE ×2 (11:45→12:13)
[2016-11-15] MEDS ORDERED: fentaNYL CITRATE 250 MCG/5 ML AMP ONE (11:53)
[2016-11-15] MEDS ORDERED: SODIUM CHLOR 0.9% 250 ML INJ 250 ML IV ONE (12:00)
[2016-11-15] MEDS ORDERED: ONDANSETRON HCL 4 MG/2 ML VIAL IV PUSH ONE (12:00)
[2016-11-15] MEDS ORDERED: PHENYLEPH/NS 1000 MCG/10 ML SYR IV ONE (12:00)
[2016-11-15] MEDS ORDERED: PROPOFOL 200 MG/20 ML AMP IV ONE (12:00)
[2016-11-15] MEDS ORDERED: DEXT 5%-NACL 0.45% 500 ML INJ 500 ML IV ONE (12:00)
--- NOTE | 2016-11-15 15:37 | RADRPT ---
EXAM DATE/TIME: 11/15/2016 12:30 [facility] COMPARISON: HIP RIGHT (AP&LAT 2/3VWS) W AP PELVIS, November 14, 2016, 4:35. INDICATIONS : Post-op total right hip arthroplasty. MEDICAL HISTORY : None. SURGICAL HISTORY : None. ENCOUNTER: Subsequent ACUITY: 2 days PAIN SCORE: Non-responsive. LOCATION: Right hip. FINDINGS: Interval resection of the femoral head. Patient now has a right bipolar hip arthroplasty. Alignment w ithin normal limits. No fracture or other acute complication demonstrated. CONCLUSION: Expected radiographic appearance immediately status post right bipolar hip arthroplasty. Evert Jackson MD on November 15, 2016 at 15:35 Board Certified Radiologist. This report was verified electronically.
--- NOTE | 2016-11-15 17:00 | OTSOAPIP ---
TIME SESSION COMPLETED: TREATMENT TIME: 0 MINS. CHART REVIEWED. PATIENT NOT AVAILABLE DUE TO UNDERGOING RIGHT HIP REPAIR PLAN: WILL SEE PATIENT NEXT TREATMENT DAY INTERDISCIPLINARY COMMUNICATION: SPOKE WITH NURSING Therapist: TIM FRIAS/Amanda Signature on file
--- NOTE | 2016-11-15 18:23 | HHI.NPPN ---
Subjective History of Present Illness 89-year-old female admitted for fractured hip. Interval History Patient postop. Sedated and nonverbal currently. Objective Data Data 11/14/16 11/15/16 19:00 07:00 Intake Total 685 ml 474 ml Output Total 2000 ml 0 ml Balance -1315 ml 474 ml Intake Oral 400 ml 100 ml IV Total 285 ml 374 ml Output Urine Total 0 ml 0 ml Hemodialysis 2000 ml # Bowel Movements 0 Vital Signs Date Time Temp Pulse Resp B/P Pulse Ox O2 Delivery O2 Flow Rate FiO2 11/15/16 16:00 98.2 64 28 112/53 100 11/15/16 16:00 70 11/15/16 14:00 70 11/15/16 14:00 97.2 70 11 113/56 100 11/15/16 13:15 81 14 112/52 98 Nasal Cannula 3 11/15/16 13:00 97.9 70 12 110/46 100 Nasal Cannula 3 11/15/16 12:50 97.9 94 12 129/60 100 Nasal Cannula 3 11/15/16 12:30 96 15 115/49 98 Nasal Cannula 3 11/15/16 12:10 102 12 153/73 94 Nasal Cannula 3 11/15/16 11:45 83 12 172/78 93 Nasal Cannula 3 11/15/16 11:40 97.3 77 11 158/64 92 Nasal Cannula 3 11/15/16 08:00 98.0 99 19 109/53 98 11/15/16 08:00 99 11/15/16 07:00 Nasal Cannula 3.00 11/15/16 07:00 100 Nasal Cannula 3.00 11/15/16 06:00 70 11/15/16 04:00 97.9 81 20 121/59 98 11/15/16 04:00 81 11/15/16 02:00 99 11/15/16 00:00 97.3 98 17 104/53 100 11/15/16 00:00 98 11/14/16 22:00 101 11/14/16 20:00 98.1 100 18 123/58 100 11/14/16 20:00 100 11/14/16 19:34 99 Nasal Cannula 3.00 11/14/16 19:00 99 Nasal Cannula 3.00 -: 11/15/16 0410 11/15/16 0410 Medication Review Current Medications Sodium Chloride (NS 1000 ml Inj) 1,000 ml @ 0 mls/hr [id number] IV Last administered on 11/14/16 06:23; Start 11/14/16 at 04:45; Stop 11/15/16 at 08:58; Status DC Morphine Sulfate (Morphine Inj) 2 mg ONCE ONCE IV PUSH Last administered on 05:14; Start 11/14/16 at 04:45; Stop 11/14/16 at 04:47; Status DC Ondansetron HCl (Zofran Inj) 4 mg ONCE ONCE IV PUSH Last administered on 05:15; Start 11/14/16 at 04:45; Stop 11/14/16 at 04:47; Status DC Sodium Polystyrene Sulfonate (Kayexalate Liq) 15 gm ONCE ONCE PO Last administered on 11/14/16 06:23; Start 11/14/16 at 06:00; Stop 11/14/16 at 06:01; Status DC Dextrose (D50w (Vial) Inj) 50 ml ONCE ONCE IV PUSH Last administered on 06:22; Start 11/14/16 at 06:00; Stop 11/14/16 at 06:01; Status DC Insulin Human Regular (NovoLIN R INJ) 10 units ONCE ONCE IV PUSH Last administered on 11/14/16 06:22; Start 11/14/16 at 06:00; Stop 11/14/16 at 06:01; Status DC Sodium Bicarbonate (Sodium Bicarbonate 8.4% Inj) 50 meq ONCE ONCE IV PUSH Last administered on 11/14/16 06:22; Start 11/14/16 at 06:00; Stop 11/14/16 at 06: 01; Status DC Albuterol Sulfate 2.5 mg 2.5 mg ONCE ONCE NEB Last administered on 11/14/16 06 :01; Start 11/14/16 at 06:00; Stop 11/14/16 at 06:01; Status DC Calcium Gluconate/ Sodium Chloride (Calcium Gluconate Inj/NS Inj) 110 ml @ 110 mls/hr ONCE ONCE IV Last administered on 11/14/16 06:22; Start 11/14/16 at 06: 00; Stop 11/14/16 at 06:59; Status DC IV Flush (NS Flush) 2 ml UNSCH PRN FLUSH FLUSH AFTER USING IV ACCESS; Start 11/14/16 at 07:00 IV Flush (NS Flush) 2 ml BID FLUSH Last administered on 11/14/16 20:12; Start 11/14/16 at 09:00 Acetaminophen (Tylenol) 650 mg Q4H PRN PO TEMP > 100.4; Start 11/14/16 at 07:00 Ondansetron HCl (Zofran Inj) 4 mg Q6H PRN IVP NAUSEA OR VOMITING; Start at 07:00 Naloxone HCl (Narcan Inj) 0.4 mg UNSCH PRN IV SEE LABEL COMMENTS; Start at 07:00 Bisacodyl (Dulcolax Supp) 10 mg DAILY PRN RECTAL CONSTIPATION; Start 11/14/16 at 07:00 Calcium Acetate (Phoslo) 667 mg TID PO Last administered on 11/14/16 10:30; Start 11/14/16 at 09:00 Docusate Sodium (Colace) 100 mg DAILY PRN PO Constipation; Start 11/14/16 at 07: 00 Furosemide (Lasix) 20 mg DAILY PO Last administered on 11/14/16 10:30; Start at 09:00 Latanoprost (Xalatan 0.005% Opt Soln) 1 drop HS EACH EYE Last administered on 11/14/16 21:00; Start 11/14/16 at 21:00 Levothyroxine Sodium (Synthroid) 112 mcg DAILY@06 PO Last administered on 06:08; Start 11/14/16 at 07:00 Ranitidine HCl (Zantac) 75 mg DAILY PO ; Start 11/14/16 at 09:00; Status Cancel Sertraline HCl (Zoloft) 25 mg DAILY PO Last administered on 11/14/16 10:30; Start 11/14/16 at 09:00 Trazodone HCl (Desyrel) 50 mg HS PO Last administered on 11/14/16 20:12; Start 11/14/16 at 21:00 Vitamin B Complex/ Vit C/Folic Acid (Nephrocaps) 1 cap DAILY PO NS Last administered on 11/14/16 10:30; Start 11/14/16 at 09:00 Cholecalciferol (Vitamin D3) 2,000 units DAILY PO Last administered on 10:30; Start 11/14/16 at 09:00 Non-Formulary Medication 1 can DAILY PO ; Start 11/14/16 at 09:00; Status UNV Pravastatin Sodium 40 mg 40 mg DAILY PO Last administered on 11/14/16 10:30; Start 11/14/16 at 09:00 Ceftriaxone Sodium 1000 mg/ Sodium Chloride 100 ml @ 200 mls/hr ONCE ONCE IV Last administered on 11/14/16 08:03; Start 11/14/16 at 07:45; Stop 11/14/16 at 08: 14; Status DC Azithromycin/ Sodium Chloride (Zithromax Inj/ NS 250 ml Inj) 250 ml @ 250 mls/ hr ONCE ONCE IV Last administered on 11/14/16 10:30; Start 11/14/16 at 07:45; Stop 11/14/16 at 08:44; Status DC Morphine Sulfate (Morphine Inj) 2 mg Q4HR PRN IV PUSH PAIN SCALE 6 TO 10; Start 11/14/16 at 07:45; Stop 11/15/16 at 11:23; Status DC Albuterol/ Ipratropium (Duoneb Neb) 1 ampule Q4HR NEB PRN NEB SOB/WHEEZING; Start 11/14/16 at 07:45 Vancomycin HCl (Vancomycin Inj) 1,000 mg STK-MED ONCE .ROUTE ; Start 11/14/16 at 08:05; Stop 11/14/16 at 08:06; Status DC Gentamicin Sulfate 240 mg 240 mg STK-MED ONCE .ROUTE ; Start 11/14/16 at 08:05; Stop 11/14/16 at 08:06; Status DC Sodium Chloride 250 ml @ As Directed STK-MED ONCE .ROUTE ; Start 11/14/16 at 08: 05; Stop 11/14/16 at 08:06; Status DC Sodium Chloride (NS 1000 ml Inj) 1,000 ml @ 0 mls/hr Q0M PRN IV For Prime & Rinse Back; Start 11/14/16 at 09:58 Heparin Sodium (Porcine) 8000 units 8,000 units UNSCH PRN IVF WITH DIALYSIS; Start 11/14/16 at 10:00 Sodium Chloride 1,000 ml @ 200 mls/hr Q5H PRN IV WITH DIALYSIS; Start 11/14/16 at 09:58 Sodium Chloride (NS 1000 ml Inj) 1,000 ml @ 0 mls/hr Q0M PRN IV WITH DIALYSIS; Start 11/14/16 at 09:58 Mannitol (Mannitol Inj) 12.5 gm UNSCH PRN IV WITH DIALYSIS; Start 11/14/16 at 10 :00 Albumin Human (Albumin 25% Inj) 25 gm UNSCH PRN IV WITH DIALYSIS; Start at 10:00 IV Flush (NS Flush) 5 ml UNSCH PRN IVF WITH DIALYSIS; Start 11/14/16 at 10:00 Heparin Sodium (Porcine) (Heparin Inj) UNSCH PRN .XX WITH DIALYSIS; Start 11/14 at 10:00 Gentamicin Sulfate (Gentamicin (Dialysis) Inj) 20 mg UNSCH PRN IV WITH DIALYSIS ; Start 11/14/16 at 10:00 Ondansetron HCl (Zofran Inj) 4 mg UNSCH PRN IV WITH DIALYSIS; Start 11/14/16 at 10:00 Acetaminophen (Tylenol) 650 mg UNSCH PRN PO for headach, pain, temp > 101F Last administered on 11/14/16 12:07; Start 11/14/16 at 10:00 Diphenhydramine HCl (Benadryl) 25 mg UNSCH PRN PO for hives/itching/anaphylaxis ; Start 11/14/16 at 10:00 Nitroglycerin (Nitrostat Sl) 0.4 mg UNSCH PRN SL CHEST PAIN; Start 11/14/16 at 10:00 Clonidine (Catapres) 0.1 mg UNSCH PRN PO for BP > 180/100 X 2 readings; Start 11/14/16 at 10:00 Gelatin (Gelfoam 12 Mm/7 Mm Top) 1 foam UNSCH PRN TOP SEE LABEL COMMENTS; Start 11/14/16 at 10:00 Famotidine (Pepcid) 10 mg BID PO Last administered on 11/14/16 20:12; Start 11/14/16 at 11:00 Morphine Sulfate (Morphine Inj) 1 mg Q4HR PRN IV PUSH PAIN SCALE 1 TO 5; Start 11/14/16 at 12:45; Stop 11/15/16 at 11:23; Status DC Tramadol HCl (Ultram) 50 mg ONCE STAT PO Last administered on 11/14/16 13:44; Start 11/14/16 at 13:35; Stop 11/14/16 at 13:41; Status DC Tramadol HCl (Ultram) 50 mg Q8H PRN PO PAIN SCALE 4 TO 10 Last administered on 11/15/16 04:03; Start 11/14/16 at 13:45; Stop 11/15/16 at 16:07; Status DC Acetaminophen (Ofirmev Inj) 1,000 mg ONCE ONCE IV Last administered on 19:00; Start 11/14/16 at 14:00; Stop 11/14/16 at 14:01; Status DC Acetaminophen (Ofirmev Inj) 1,000 mg Q8H PRN IV BREAKTHROUGH PAIN; Start at 22:00 Dextrose (D50w (Vial) Inj) 25 ml NOW ONCE IV PUSH Last administered on 06:25; Start 11/15/16 at 06:15; Stop 11/15/16 at 06:19; Status DC Dextrose (D50w (Vial) Inj) 25 ml Q15M PRN IV PUSH Glucose <70 Last administered on 11/15/16 06:51; Start 11/15/16 at 06:30 Glucagon 1 mg 1 mg UNSCH PRN OTHER HYPOGLYCEMIA-SEE COMMENTS; Start 11/15/16 at 07:00 Dextrose/Sodium Chloride (D5W-1/2 NS 1000 ml Inj) 1,000 ml @ 30 mls/hr Q24H IV Last administered on 11/15/16 12:45; Start 11/15/16 at 09:00 Ketamine HCl (Ketalar Inj) 500 mg STK-MED ONCE .ROUTE ; Start 11/15/16 at 09:10; Stop 11/15/16 at 09:11; Status DC Cefazolin Sodium (Ancef Inj) 1,000 mg STK-MED ONCE .ROUTE Last administered on 11/15/16 10:20; Start 11/15/16 at 09:11; Stop 11/15/16 at 09:12; Status DC Gentamicin Sulfate (Gentamicin Inj) 80 mg STK-MED ONCE .ROUTE Last administered on 11/15/16 10:46; Start 11/15/16 at 09:12; Stop 11/15/16 at 09:13; Status DC Gentamicin Sulfate 160 mg 160 mg STK-MED ONCE .ROUTE Last administered on 10:46; Start 11/15/16 at 09:12; Stop 11/15/16 at 09:13; Status DC Sodium Chloride (NS 250 ml Inj) 250 ml @ As Directed STK-MED ONCE .ROUTE Last administered on 11/15/16 10:35; Start 11/15/16 at 09:12; Stop 11/15/16 at 09:13; Status DC Vancomycin HCl (Vancomycin Inj) 1,000 mg STK-MED ONCE .ROUTE Last administered on 11/15/16 10:35; Start 11/15/16 at 09:12; Stop 11/15/16 at 09:13; Status DC Vancomycin HCl (Vancomycin Inj) 2,000 mg STK-MED ONCE .ROUTE ; Start 11/15/16 at 09:19; Stop 11/15/16 at 09:20; Status DC Famotidine (Pepcid Inj) 20 mg STK-MED ONCE .ROUTE ; Start 11/15/16 at 09:26; Stop 11/15/16 at 09:27; Status DC Sugammadex Sodium (Bridion Inj) 200 mg STK-MED ONCE IV PUSH ; Start 11/15/16 at 11:05; Stop 11/15/16 at 11:06; Status DC Bacitracin (Baciguent Oint) 15 applic STK-MED ONCE .ROUTE Last administered on 11/15/16 11:15; Start 11/15/16 at 11:13; Stop 11/15/16 at 11:14; Status DC IV Flush (NS Flush) 2 ml UNSCH PRN IVF FLUSH AFTER USING IV ACCESS; Start at 11:15; Stop 11/15/16 at 12:14; Status DC IV Flush (NS Flush) 2 ml BID IVF ; Start 11/15/16 at 21:00; Stop 11/15/16 at 21:00 ; Status DC Miscellaneous Information (Post-op Orders (for Pharmacy)) STAT ONCE XX Last administered on 11/15/16 11:15; Start 11/15/16 at 11:15; Stop 11/15/16 at 12:02; Status DC Acetaminophen/ Hydrocodone Bitart ([place] 7.5-325 Mg) 1 tab Q4H PRN PO PAIN 3< 10; Start 11/15/16 at 11:15; Status UNV Morphine Sulfate 3 mg 3 mg Q3H PRN IV PUSH break thru pain; Start 11/15/16 at 11 :15; Stop 11/15/16 at 11:23; Status DC Cefazolin Sodium/ Sodium Chloride (Ancef Inj/NS Inj) 100 ml @ 200 mls/hr Q8H IV Last administered on 11/15/16 17:46; Start 11/15/16 at 18:00; Stop 11/16/16 at 10:29 Aspirin (Ecotrin Ec) 81 mg DAILY PO ; Start 11/16/16 at 09:00 Clopidogrel Bisulfate (Plavix) 75 mg DAILY PO ; Start 11/16/16 at 09:00 Morphine Sulfate (*morphine INJ PERIprocedure ONLY) 8 mg STK-MED ONCE .ROUTE Last administered on 11/15/16 11:45; Start 11/15/16 at 11:45; Stop 11/15/16 at 11: 46; Status DC Fentanyl Citrate (fentaNYL INJ) 250 mcg STK-MED ONCE .ROUTE ; Start 11/15/16 at 11:53; Stop 11/15/16 at 11:54; Status DC Morphine Sulfate (*morphine INJ PERIprocedure ONLY) 8 mg STK-MED ONCE .ROUTE Last administered on 11/15/16 12:15; Start 11/15/16 at 12:13; Stop 11/15/16 at 12: 14; Status DC Miscellaneous Information ALL NURSING DEPARTME... UNSCH PRN XX SEE LABEL COMMENTS; Start 11/15/16 at 11:37; Stop 11/16/16 at 11:36 Tramadol HCl (Ultram) 50 mg Q6H PRN PO PAIN SCALE 1 TO 5; Start 11/15/16 at 16: 07 Tramadol HCl (Ultram) 50 mg Q4H PRN PO PAIN SCALE 6-10; Start 11/15/16 at 16:15 Physical Exam General Appearance: Malnourished Eyes Eye Exam: Sclera White Pulmonary Resp Exam: Clear Bilaterally, Breath Sounds Equal, No Distress Cardiology CV Exam: Regular, Normal Sinus Rhythm Gastrointestinal/Abdomen GI Exam: Soft, Non-Tender Assessment/Plan Problem List: (1) ESRD (end stage renal disease) on dialysis Plan: Will continue on TTS schedule. wire bound box machine operator has been contacted. Hyperkalemia will be corrected with HD. s/p medication treatment in ED. Awaiting repeat lab. Continue on PhosLo. Check iPTH and Vit D levels. Medications should be adjusted for the patient's ESRD. Avoid gadolinium (2) Hyperkalemia Plan: As above, will correct with HD. Monitor. Diet restricted. (3) Leukocytosis Plan: Likely from stress. Work up as indicated by primary (4) Subcapital fracture of hip Plan: Mgmt as per Ortho. Planned partial hip replacement tomorrow by Ortho. (5) Anemia of renal disease Plan: Monitor. Will give Epogen as indicated. (6) Failure to thrive in adult Plan: Patient with progressive deterioration in overall condition despite aggressive medical care. Last medical conference with patient and family indicated that the patient wanted to continue dialysis. Overall prognosis is poor however. Problem Qualifiers (1) Leukocytosis: Qualified Code: D72.828 - Other elevated white blood cell (WBC) count Pio Morton MD Nov 15, 2016 18:23
[2016-11-15] MEDS: LATANOPROST 0.005% OPHT SOLN 2.5 ML BTL EACH EYE SCH (21:00)
[2016-11-15] MEDS ORDERED: SODIUM CHLORIDE 0.9% FLUSH 5 ML FLUSH IVF SCH (21:00)
[2016-11-15] MEDS: traZODone HCL 50 MG TAB PO SCH (21:00)
[2016-11-16] VITALS (12 sets, daily range): BP systolic 93–125; BP diastolic 45–58; PULSE 68–102; RESP 16–21; TEMP 97.7–100; O2SAT 96–100
[2016-11-16 04:46] LABS: HEMATOCRIT 25.7 % (35.0-46.0); MEAN CELL VOLUME 91.2 FL (80.0-100.0); MEAN CORPUSCULAR HEMOGLOBIN 30.4 PG (27.0-34.0); MEAN CORPUSCULAR HGB CONC 33.3 % (32.0-36.0); PLATELET COUNT 236 TH/MM3 (150-450); RED BLOOD COUNT 2.82 MIL/MM3 (4.00-5.30); RED CELL DISTRIBUTION WIDTH 14.9 % (11.6-17.2); REVIEW FLAG FINAL; WHITE BLOOD COUNT 10.6 TH/MM3 (4.0-11.0)
[2016-11-16 05:17] LABS: BICARBONATE 27.7 MEQ/L (21.0-32.0); POTASSIUM 4.8 MEQ/L (3.5-5.1)
[2016-11-16] MEDS: LEVOTHYROXINE SODIUM 112 MCG TAB PO SCH (06:00)
--- NOTE | 2016-11-16 07:02 | PD.ORT.PN ---
Subjective Subjective Remarks POD 1 s/p right hip hemiarthroplasty patient awake. reports some pain. currently receive dialysis Objective Vitals Vital Signs Date Time Temp Pulse Resp B/P Pulse Ox O2 Delivery O2 Flow Rate FiO2 11/16/16 06:00 76 11/16/16 04:00 74 11/16/16 04:00 98.3 74 18 125/58 99 11/16/16 02:00 72 11/16/16 00:00 68 11/16/16 00:00 97.7 68 18 106/52 100 11/15/16 22:00 92 11/15/16 20:00 98 11/15/16 20:00 Nasal Cannula 3.00 11/15/16 20:00 99.1 98 18 100/76 100 11/15/16 19:36 94 Nasal Cannula 3.00 11/15/16 18:00 74 11/15/16 16:00 98.2 64 28 112/53 100 11/15/16 16:00 70 11/15/16 14:00 70 11/15/16 14:00 97.2 70 11 113/56 100 11/15/16 13:45 77 15 110/55 100 Nasal Cannula 3 11/15/16 13:15 81 14 112/52 98 Nasal Cannula 3 11/15/16 13:00 97.9 70 12 110/46 100 Nasal Cannula 3 11/15/16 12:50 97.9 94 12 129/60 100 Nasal Cannula 3 11/15/16 12:30 96 15 115/49 98 Nasal Cannula 3 11/15/16 12:10 102 12 153/73 94 Nasal Cannula 3 11/15/16 11:45 83 12 172/78 93 Nasal Cannula 3 11/15/16 11:40 97.3 77 11 158/64 92 Nasal Cannula 3 11/15/16 08:00 98.0 99 19 109/53 98 11/15/16 08:00 99 I/O 11/15/16 11/15/16 11/15/16 11/16/16 11/16/16 11/16/16 07:00 15:00 23:00 07:00 15:00 23:00 Intake Total 155 ml 731 ml 291 ml 66 ml Output Total 0 ml 195 ml 30 ml 0 ml Balance 155 ml 536 ml 261 ml 66 ml Intake Oral 0 ml 0 ml 0 ml 0 ml IV Total 155 ml 31 ml 291 ml 66 ml Other 700 ml Output Urine Total 0 ml 105 ml 0 ml 0 ml Stool Total 0 ml 0 ml Drainage Total 10 ml 30 ml 0 ml Estimated Blood Loss 80 ml # Bowel Movements 0 0 Result Diagram: 11/16/1641711/16/16417 Imaging Last 24 hours Impressions Knee X-Ray 11/14/16444 Signed Impressions: Service Date/Time: Monday, November 14, 2016 04:40 - CONCLUSION: 1. Osseous demineralization but no acute fracture. 2. Osteoarthritic changes. 3. Dense atherosclerotic calcification of the regional vasculature, including a probable in situ fem-popliteal bypass graft. Carson Stevens MD Hip and Pelvis X-Ray 11/14/16444 Signed Impressions: Service Date/Time: Monday, November 14, 2016 04:35 - CONCLUSION: 1. Diffuse osseous demineralization with a subcapital fracture of the right hip. 2. Dense atherosclerotic calcification of the regional vasculature. Carson Stevens MD Chest X-Ray 11/14/16412 Signed Impressions: Service Date/Time: Monday, November 14, 2016 04:31 - CONCLUSION: 1. Left basilar consolidation/effusion. 2. Focal pleural thickening and pleural parenchymal scarring laterally in the right lower lung. 3. Prior CABG. Abandoned epicardial pacer wires. Extensive stenting of the right upper extremity vasculature. 4. Borderline prominent but well compensated heart Carson Stevens MD Objective Remarks RLE: dressings clean and dry. intact. +drain. +knee brace. NVI Assessment & Plan Assessment and Plan 1) Right Subcapital Femoral Neck Fx s/p right hip hemiarthroplasty - POD 1 -WBAT -daily dressing changes to begin POD 2 with DC of drain -knee brace while in bed -posterior hip precautions -DVT prophylaxis -plan for DC to rehab when medically stable -f/u with Chuck or [facility] in 2 weeks Kel Dumont Nov 16, 2016 07:02
[2016-11-16] MEDS: SODIUM CHLORIDE 0.9% FLUSH 5 ML FLUSH FLUSH SCH ×2 (09:00→21:00)
[2016-11-16] MEDS: ACETAMINOPHEN 1000 MG/100 ML VIAL IV PRN (09:26)
[2016-11-16] MEDS: CHOLECALCIFEROL (VIT D3) 1000 UNIT TAB PO SCH (10:07)
[2016-11-16] MEDS: CLOPIDOGREL 75 MG TAB PO SCH (10:07)
[2016-11-16] MEDS: CALCIUM ACETATE 667 MG CAP PO SCH ×3 (10:07→15:06)
[2016-11-16] MEDS: VITAMIN B CMPLX/VITC/FOLIC AC CAP PO SCH (10:08)
[2016-11-16] MEDS: SERTRALINE HCL 50 MG TAB PO SCH (10:08)
[2016-11-16] MEDS: FAMOTIDINE 20 MG TAB PO SCH ×2 (10:08→21:00)
[2016-11-16] MEDS: PRAVASTATIN SOD 40 MG TAB PO SCH (10:08)
[2016-11-16] MEDS: FUROSEMIDE 20 MG TAB PO SCH (10:08)
[2016-11-16] MEDS: ASPIRIN EC 81 MG TABEC PO SCH (10:08)
--- NOTE | 2016-11-16 12:13 | HHI.FPPN ---
Subjective Remarks Patient seen and examined. No acute events overnight with vital signs stable. Patient appears comfortable with daughter at bedside. She is able to answer yes and no questions but unable to answer any other questions during the interview due to slurred speech at baseline. She endorses no fevers, chills, chest pain, shortness of breath, NVD, or calf tenderness. (Demetrio Da Silva MD R1) Objective Vitals Vital Signs Date Time Temp Pulse Resp B/P Pulse Ox O2 Delivery O2 Flow Rate FiO2 11/16/16 10:00 102 11/16/16 08:00 98.7 97 16 112/58 100 11/16/16 08:00 97 11/16/16 07:00 100 Nasal Cannula 3.00 11/16/16 06:00 76 11/16/16 04:00 74 11/16/16 04:00 98.3 74 18 125/58 99 11/16/16 02:00 72 11/16/16 00:00 68 11/16/16 00:00 97.7 68 18 106/52 100 11/15/16 22:00 92 11/15/16 20:00 98 11/15/16 20:00 Nasal Cannula 3.00 11/15/16 20:00 99.1 98 18 100/76 100 11/15/16 19:36 94 Nasal Cannula 3.00 11/15/16 18:00 74 11/15/16 16:00 98.2 64 28 112/53 100 11/15/16 16:00 70 11/15/16 14:00 70 11/15/16 14:00 97.2 70 11 113/56 100 11/15/16 13:45 77 15 110/55 100 Nasal Cannula 3 11/15/16 13:15 81 14 112/52 98 Nasal Cannula 3 11/15/16 13:00 97.9 70 12 110/46 100 Nasal Cannula 3 11/15/16 12:50 97.9 94 12 129/60 100 Nasal Cannula 3 11/15/16 12:30 96 15 115/49 98 Nasal Cannula 3 I/O 11/15/16 11/15/16 11/15/16 11/16/16 11/16/16 11/16/16 07:00 15:00 23:00 07:00 15:00 23:00 Intake Total 155 ml 731 ml 291 ml 66 ml Output Total 0 ml 195 ml 30 ml 0 ml 2000 ml Balance 155 ml 536 ml 261 ml 66 ml -2000 ml Intake Oral 0 ml 0 ml 0 ml 0 ml IV Total 155 ml 31 ml 291 ml 66 ml Other 700 ml Output Urine Total 0 ml 105 ml 0 ml 0 ml Stool Total 0 ml 0 ml Drainage Total 10 ml 30 ml 0 ml Hemodialysis 2000 ml Estimated Blood Loss 80 ml # Bowel Movements 0 0 (Demetrio Da Silva MD R1) Result Diagram: 11/16/1641711/16/16417 Objective Remarks GENERAL: This is a frail elderly female patient, in no apparent distress SKIN: Several bruises on right lower extremity. Right lower extremity skin tear and left lower extremity hematoma covered in dressings. Cool and dry. CARDIOVASCULAR: Regular rate and rhythm. 2/6 JOE. RESPIRATORY: Clear to auscultation. Breath sounds equal bilaterally. No wheezes , rales, or rhonchi. GASTROINTESTINAL: Abdomen soft, non-tender, nondistended with +BS. MUSCULOSKELETAL: RLE in brace. Neurovascularly intact with 2+ pulses. NEUROLOGICAL: AAOx3. Speech difficult to comprehend at length. (Demetrio Da Silva MD R1) A/P Assessment and Plan Patient is an 89-year-old female with past medical history significant for HTN, hypothyroidism, CAD, ESRD on dialysis, and CHF who presented today with leg pain after a fall and is admitted for right subcapital hip fracture, hyperkalemia, and heart block. Discharge Planning Likely 1-2 more days. Patient will require rehabilitation upon discharge. DW: Dr. Darden (Demetrio Da Silva MD R1) Attending Attestation Patient seen and examined. Case reviewed and discussed with the resident team. Agree with plan of care as discussed with me and documented in the resident note. (No Darden MD) Problem List: (1) Fracture of femoral neck, right Status: Acute Plan: Hip x-ray significant for diffuse osseous demineralization with a subcapital fracture of the right hip. - POD #1 from R hip arthroplasty without complication. Drain in place with plans to DC drain tomorrow. - Vitamin D: 30.7 - PT to evaluate and treat - Resume DVT prophylaxis (2) Heart block AV complete Status: Acute Plan: EKG significant for first degree heart block TSH WNL Tele Transcutaneous pacer pads in place (3) Hyperkalemia Status: Acute Plan: Hyperkalemia of 6.0 on admission Dialysis Nephrology consulted for Dialysis and will follow (4) ESRD (end stage renal disease) on dialysis Status: Chronic Plan: Nephrology consulted Dialysis usually on Continue home dose of Nephrocaps, cholecalciferol, Phoslo, she has secondary hypoparathyroidism (5) CHF, chronic Status: Chronic Plan: Last Echo 07/02/15 significant for EF 35% Continue home dose of Lasix (6) Nutrition, metabolism, and development symptoms Status: Acute Plan: Fluids: None Electrolytes: as above Nutrition: NPO. Once diet is resumed, patient requires mechanical soft with honey thickened liquids. DVT PPx: SCD's, Resume DVT prophylaxis with Heparin 5000u BID (Demetrio Da Silva MD R1) Problem Qualifiers (1) Fracture of femoral neck, right: Qualified Code: S72.001A - Closed fracture of neck of right femur, initial encounter (2) CHF, chronic: Qualified Code: I50.22 - Chronic systolic congestive heart failure Demetrio Da Silva MD R1 Nov 16, 2016 12:13 No Darden MD Nov 22, 2016 10:24
[2016-11-16] MEDS: traMADol HCL 50 MG TAB PO PRN (13:13)
--- NOTE | 2016-11-16 15:54 | RADRPT ---
EXAM DATE/TIME: 11/16/2016 15:16 [facility] COMPARISON: CHEST SINGLE AP, November 14, 2016, 4:31. INDICATIONS : Shortness of breath. MEDICAL HISTORY : Stroke. Renal disease, end stage. Cardiovascular disease dyshagia. SURGICAL HISTORY : CABG. ENCOUNTER: Initial ACUITY: 2 days PAIN SCORE: 2/10 LOCATION: Bilateral chest FINDINGS: There is improved lung aeration and less interstitial vascular prominence compared to the prior study . Heart and mediastinal structures are stable. There is evidence of prior CABG. No new findings are noted. CONCLUSION: Improving lung aeration and decreasing pulmonary congestion. Chin Noel MD on November 16, 2016 at 15:50 Board Certified Radiologist. This report was verified electronically.
[2016-11-16] MEDS ORDERED: SODIUM CHLOR 0.9% 1000 ML INJ 1,000 ML IV SCH (17:00)
[2016-11-16] MEDS ORDERED: DEXT 5%-NACL 0.45% 1000 ML INJ 1,000 ML IV SCH (17:15)
--- NOTE | 2016-11-16 17:24 | HHI.PR ---
Addendum to Inpatient Note Addendum Reason: Additional Documentation Additional Information S: Patient with reported oxygen desaturations to the low/mid 80s per nursing staff around 1500. Nursing staff states that patient had difficulty during lunch today after passing swallow eval by speech therapy. Patient at aspiration risk due to prior strokes. Currently on Ventimask with oxygen saturation at 99%. O: GENERAL: This is a frail elderly female patient, in no apparent distress lying in bed. SKIN: Several bruises on right lower extremity. Right lower extremity skin tear and left lower extremity hematoma covered in dressings. Cool and dry. CARDIOVASCULAR: Regular rate and rhythm. 2/6 JOE. RESPIRATORY: Clear to auscultation. Breath sounds equal bilaterally. No wheezes , rales, or rhonchi. GASTROINTESTINAL: Abdomen soft, non-tender, nondistended with +BS. MUSCULOSKELETAL: RLE in brace. Neurovascularly intact with 2+ pulses. NEUROLOGICAL: AAOx3. Speech difficult to comprehend at length. A: Mrs. Richey is a 89-year-old female with past medical history significant for HTN, hypothyroidism, CAD, ESRD on dialysis, and CHF who presented today with leg pain after a fall and is admitted for right subcapital hip fracture, hyperkalemia, and heart block. P: NPO until swallow evaluation, placed on D5 + 1/2NS at 50/hr due to prior hypoglycemia episodes Chest x-ray: Improving lung aeration and decreasing pulmonary congestion Wells criteria score 3, however patient's baseline heart rate has been in the 100s CTA Jaleel able to be completed due to patient's renal failure, VQ scan unlikely helpful due to patient noncompliance during exam Continue to monitor, Instructed nursing staff to attempt to ween patient off oxygen as tolerated Demetrio Da Silva MD R1 Nov 16, 2016 17:24
--- NOTE | 2016-11-16 18:43 | HHI.NPPN ---
Subjective History of Present Illness 89-year-old female admitted for fractured hip. Interval History Noted concerns regarding aspiration earlier today. Otherwise patient appears comfortable. Daughter by bedside. Objective Data Data 11/15/16 11/16/16 19:00 07:00 Intake Total 731 ml 357 ml Output Total 195 ml 30 ml Balance 536 ml 327 ml Intake Oral 0 ml 0 ml IV Total 31 ml 357 ml Other 700 ml Output Urine Total 105 ml 0 ml Stool Total 0 ml Drainage Total 10 ml 30 ml Estimated Blood Loss 80 ml # Bowel Movements 0 Vital Signs Date Time Temp Pulse Resp B/P Pulse Ox O2 Delivery O2 Flow Rate FiO2 11/16/16 16:00 102 11/16/16 16:00 98.3 102 21 93/45 100 11/16/16 12:00 97.8 101 20 105/53 100 11/16/16 12:00 101 11/16/16 10:00 102 11/16/16 08:00 98.7 97 16 112/58 100 11/16/16 08:00 97 11/16/16 07:00 100 Nasal Cannula 3.00 11/16/16 06:00 76 11/16/16 04:00 74 11/16/16 04:00 98.3 74 18 125/58 99 11/16/16 02:00 72 11/16/16 00:00 68 11/16/16 00:00 97.7 68 18 106/52 100 11/15/16 22:00 92 11/15/16 20:00 98 11/15/16 20:00 Nasal Cannula 3.00 11/15/16 20:00 99.1 98 18 100/76 100 11/15/16 19:36 94 Nasal Cannula 3.00 -: 11/16/16 0418 11/16/16 0418 Physical Exam General Appearance: Malnourished Eyes Eye Exam: Sclera White Pulmonary Resp Exam: Clear Bilaterally, Breath Sounds Equal, No Distress Cardiology CV Exam: Regular, Normal Sinus Rhythm Gastrointestinal/Abdomen GI Exam: Soft, Non-Tender Assessment/Plan Problem List: (1) ESRD (end stage renal disease) on dialysis Plan: Will continue on TTS schedule. Continue on PhosLo. Check iPTH and Vit D levels. Medications should be adjusted for the patient's ESRD. Avoid gadolinium (2) Hyperkalemia Plan: As above, will correct with HD. Monitor. Diet restricted. (3) Leukocytosis Plan: Likely from stress. Work up as indicated by primary (4) Subcapital fracture of hip Plan: Mgmt as per Ortho. Planned partial hip replacement tomorrow by Ortho. (5) Anemia of renal disease Plan: Monitor. Will give Epogen as indicated. (6) Failure to thrive in adult Plan: Patient with progressive deterioration in overall condition despite aggressive medical care. Last medical conference with patient and family indicated that the patient wanted to continue dialysis. Overall prognosis is poor however and at some point in time I believe that the family will have to consider hospice.. Problem Qualifiers (1) Leukocytosis: Qualified Code: D72.828 - Other elevated white blood cell (WBC) count Pio Morton MD Nov 16, 2016 18:43
[2016-11-16] MEDS: LATANOPROST 0.005% OPHT SOLN 2.5 ML BTL EACH EYE SCH (21:00)
[2016-11-16] MEDS: HEPARIN SODIUM - SQ 10,000 UNITS/ML VIAL SQ SCH (21:00)
[2016-11-16] MEDS: traZODone HCL 50 MG TAB PO SCH (21:00)
[2016-11-17] VITALS (9 sets, daily range): BP systolic 95–122; BP diastolic 49–88; PULSE 98–108; RESP 15–23; TEMP 96.6–99; O2SAT 97–100
[2016-11-17 04:48] LABS: HEMATOCRIT 24.5 % (35.0-46.0); MEAN CELL VOLUME 90.7 FL (80.0-100.0); MEAN CORPUSCULAR HEMOGLOBIN 30.7 PG (27.0-34.0); MEAN CORPUSCULAR HGB CONC 33.8 % (32.0-36.0); PLATELET COUNT 246 TH/MM3 (150-450); RED CELL DISTRIBUTION WIDTH 14.8 % (11.6-17.2); REVIEW FLAG FINAL; WHITE BLOOD COUNT 10.9 TH/MM3 (4.0-11.0)
[2016-11-17 05:30] LABS: BICARBONATE 30.7 MEQ/L (21.0-32.0); POTASSIUM 3.6 MEQ/L (3.5-5.1)
[2016-11-17] MEDS: LEVOTHYROXINE SODIUM 112 MCG TAB PO SCH (06:00)
--- NOTE | 2016-11-17 07:31 | PD.ORT.PN ---
Subjective Subjective Remarks POD 2 s/p right hip hemiarthroplasty resting comfortably. no pain. Objective Vitals Vital Signs Date Time Temp Pulse Resp B/P Pulse Ox O2 Delivery O2 Flow Rate FiO2 11/17/16 04:00 98.6 100 16 104/53 100 11/17/16 04:00 100 11/17/16 00:00 98 11/17/16 00:00 99.0 98 18 95/49 97 11/16/16 22:26 100 Venturi Mask 50 11/16/16 20:00 100.0 102 20 106/55 100 11/16/16 20:00 102 11/16/16 19:00 96 Venturi Mask 50 11/16/16 16:00 102 11/16/16 16:00 98.3 102 21 93/45 100 11/16/16 12:00 97.8 101 20 105/53 100 11/16/16 12:00 101 11/16/16 10:00 102 11/16/16 08:00 98.7 97 16 112/58 100 11/16/16 08:00 97 I/O 11/16/16 11/16/16 11/16/16 11/17/16 11/17/16 11/17/16 07:00 15:00 23:00 07:00 15:00 23:00 Intake Total 66 ml 526 ml 364 ml Output Total 0 ml 2000 ml 12 ml 0 ml Balance 66 ml -2000 ml 514 ml 364 ml Intake Oral 0 ml IV Total 66 ml 526 ml 364 ml Output Urine Total 0 ml 7 ml 0 ml Stool Total 0 ml 0 ml 0 ml Drainage Total 0 ml 5 ml 0 ml Hemodialysis 2000 ml Result Diagram: 11/17/16 0414 11/17/16 0414 Imaging Last 24 hours Impressions Knee X-Ray 11/14/16444 Signed Impressions: Service Date/Time: Monday, November 14, 2016 04:40 - CONCLUSION: 1. Osseous demineralization but no acute fracture. 2. Osteoarthritic changes. 3. Dense atherosclerotic calcification of the regional vasculature, including a probable in situ fem-popliteal bypass graft. Carson Stevens MD Hip and Pelvis X-Ray 11/14/16 6335 Signed Impressions: Service Date/Time: Monday, November 14, 2016 04:35 - CONCLUSION: 1. Diffuse osseous demineralization with a subcapital fracture of the right hip. 2. Dense atherosclerotic calcification of the regional vasculature. Carson Stevens MD Chest X-Ray 11/14/16 0413 Signed Impressions: Service Date/Time: Monday, November 14, 2016 04:31 - CONCLUSION: 1. Left basilar consolidation/effusion. 2. Focal pleural thickening and pleural parenchymal scarring laterally in the right lower lung. 3. Prior CABG. Abandoned epicardial pacer wires. Extensive stenting of the right upper extremity vasculature. 4. Borderline prominent but well compensated heart Carson Stevens MD Objective Remarks RLE: dressings clean and dry. intact. +drain. +knee brace. NVI Assessment & Plan Assessment and Plan 1) Right Subcapital Femoral Neck Fx s/p right hip hemiarthroplasty - POD 2 -WBAT -daily dressing changes and DC drain -knee brace while in bed -posterior hip precautions -DVT prophylaxis -plan for DC to rehab when medically stable -f/u with Chuck or [facility] in 2 weeks Kel Dumont Nov 17, 2016 07:31
[2016-11-17] MEDS: CALCIUM ACETATE 667 MG CAP PO SCH ×3 (08:00→17:42)
[2016-11-17] MEDS: PRAVASTATIN SOD 40 MG TAB PO SCH (08:00)
[2016-11-17] MEDS: SODIUM CHLORIDE 0.9% FLUSH 5 ML FLUSH FLUSH SCH ×2 (08:01→21:03)
[2016-11-17] MEDS: HEPARIN SODIUM - SQ 10,000 UNITS/ML VIAL SQ SCH ×2 (08:01→21:01)
[2016-11-17] MEDS: CLOPIDOGREL 75 MG TAB PO SCH (08:01)
[2016-11-17] MEDS: FUROSEMIDE 20 MG TAB PO SCH (08:01)
[2016-11-17] MEDS: CHOLECALCIFEROL (VIT D3) 1000 UNIT TAB PO SCH (08:01)
[2016-11-17] MEDS: SERTRALINE HCL 50 MG TAB PO SCH (08:01)
[2016-11-17] MEDS: ASPIRIN EC 81 MG TABEC PO SCH (08:01)
[2016-11-17] MEDS: VITAMIN B CMPLX/VITC/FOLIC AC CAP PO SCH (08:01)
[2016-11-17] MEDS: FAMOTIDINE 20 MG TAB PO SCH ×2 (08:01→21:03)
--- NOTE | 2016-11-17 09:43 | HHI.FPPN ---
Subjective Remarks No acute events overnight. Vital signs show an elevated temp of 100.0 and tachycardia with slightly lower blood pressures but patient is doing well. Satting on 3 L of nasal cannula at 100% and BP in the room had improved to 110s systolic. No further respiratory issues. This morning patient reported having severe leg pain and a dry mouth. Denies chest pain, SOB. (Radhika Peck MD R2) Objective Vitals Vital Signs Date Time Temp Pulse Resp B/P Pulse Ox O2 Delivery O2 Flow Rate FiO2 11/17/16 08:00 98.9 102 21 120/57 97 11/17/16 08:00 102 11/17/16 07:58 100 Nasal Cannula 3.00 11/17/16 07:00 100 Nasal Cannula 3.00 11/17/16 04:00 98.6 100 16 104/53 100 11/17/16 04:00 100 11/17/16 00:00 98 11/17/16 00:00 99.0 98 18 95/49 97 11/16/16 22:26 100 Venturi Mask 50 11/16/16 20:00 100.0 102 20 106/55 100 11/16/16 20:00 102 11/16/16 19:00 96 Venturi Mask 50 11/16/16 16:00 102 11/16/16 16:00 98.3 102 21 93/45 100 11/16/16 14:30 96 Venturi Mask 50 11/16/16 12:00 97.8 101 20 105/53 100 11/16/16 12:00 101 11/16/16 10:00 102 I/O 11/16/16 11/16/16 11/16/16 11/17/16 11/17/16 11/17/16 07:00 15:00 23:00 07:00 15:00 23:00 Intake Total 66 ml 526 ml 364 ml Output Total 0 ml 2000 ml 12 ml 0 ml Balance 66 ml -2000 ml 514 ml 364 ml Intake Oral 0 ml IV Total 66 ml 526 ml 364 ml Output Urine Total 0 ml 7 ml 0 ml Stool Total 0 ml 0 ml 0 ml Drainage Total 0 ml 5 ml 0 ml Hemodialysis 2000 ml (Radhika Peck MD R2) Result Diagram: 11/17/16 0414 11/17/16413 Objective Remarks GENERAL: This is a frail elderly female patient, in no apparent distress. Laying in bed CARDIOVASCULAR: Regular rate and rhythm. 2/6 JOE. RESPIRATORY: Clear to auscultation anteriorly. Breath sounds equal bilaterally. No wheezes, rales, or rhonchi. MUSCULOSKELETAL: RLE in brace. Neurovascularly intact with 2+ pulses. Able to wiggle bilateral toes/feet. NEUROLOGICAL: AAOx3. Speech difficult to comprehend but clearer today. (Radhika Gabriel MD R2) A/P Assessment and Plan Patient is an 89-year-old female with past medical history significant for HTN, hypothyroidism, CAD, ESRD on dialysis, and CHF who presented today with leg pain after a fall and is admitted for right subcapital hip fracture, hyperkalemia, and heart block. Discharge Planning Tomorrow, will require rehabilitation upon discharge. DW: Dr. Darden (Radhika Peck MD R2) Attending Attestation Patient seen and examined. Case reviewed and discussed with the resident team. Agree with plan of care as discussed with me and documented in the resident note. (No Darden MD) Problem List: (1) Fracture of femoral neck, right Status: Acute Plan: Hip x-ray significant for diffuse osseous demineralization with a subcapital fracture of the right hip. - Vitamin D: 30.7 - pain control: No more than 2mg of morphine, Try Tylenol and/or tramadol as first option Ortho consulted: Appreciate recommendations - POD #2 from R hip arthroplasty without complication. Drain discontinued - Rehab - Resume DVT prophylaxis - Okay to dc (2) Oxygen desaturation with feeding Status: Resolved Plan: On 11/16, patient had episode of desaturation that occurred during lunch. Resolved with Ventimask supplementation that is currently weaned down to nasal cannula. Since symptoms were related to eating, there was concern about aspiration due to history of prior strokes. Today patient is doing well. Suspect tachycardia may be due to uncontrolled pain. Will refrain from aggressive measures at this time. -Reevaluation by speech -Wells criteria of 3 but VQ scan was was deferred at the time of exam due to patient noncompliance -Patient not a candidate for CTA -Closely monitor (3) ESRD (end stage renal disease) on dialysis Status: Chronic Plan: Hyperkalemia of 6.0 on admission which has resolved Dialysis Continue home dose of Nephrocaps, cholecalciferol, Phoslo, she has secondary hypoparathyroidism Nephrology consulted for Dialysis and will follow * Epogen * Patient with progressive deterioration in overall condition despite aggressive medical care. * Overall prognosis is poor however and at some point in time I believe that the family will have to consider hospice.. (4) Heart block AV complete Status: Acute Plan: EKG significant for first degree heart block. Currently asymptomatic. Will refrain from aggresive care at this time. TSH WNL Tele (5) CHF, chronic Status: Chronic Plan: Last Echo 07/02/15 significant for EF 35% Continue home dose of Lasix (6) Nutrition, metabolism, and development symptoms Status: Acute Plan: Fluids: None Electrolytes: Mild hyponatremia, continue to monitor Nutrition: Heart Healthy DVT PPx: SCD's, Heparin 5000u BID (Radhika Peck MD R2) Problem Qualifiers (1) Fracture of femoral neck, right: Qualified Code: S72.001A - Closed fracture of neck of right femur, initial encounter (2) CHF, chronic: Qualified Code: I50.22 - Chronic systolic congestive heart failure Radhika Peck MD R2 Nov 17, 2016 09:42 No Darden MD Nov 22, 2016 10:25
--- NOTE | 2016-11-17 13:02 | HHI.NPPN ---
Subjective History of Present Illness 89-year-old female admitted for fractured hip. Interval History Sitting up in bed eating. Daughter present in room. Alert and oriented today. More conversive. (Gaviota Nicholson) Objective Data Data 11/16/16 11/17/16 19:00 07:00 Intake Total 266 ml 624 ml Output Total 2012 ml 0 ml Balance -1746 ml 624 ml IV Total 266 ml 624 ml Output Urine Total 7 ml 0 ml Stool Total 0 ml 0 ml Drainage Total 5 ml 0 ml Hemodialysis 2000 ml Vital Signs Date Time Temp Pulse Resp B/P Pulse Ox O2 Delivery O2 Flow Rate FiO2 11/17/16 12:00 102 11/17/16 12:00 98.3 102 22 121/88 100 11/17/16 08:00 98.9 102 21 120/57 97 11/17/16 08:00 102 11/17/16 07:58 100 Nasal Cannula 3.00 11/17/16 07:00 100 Nasal Cannula 3.00 11/17/16 04:00 98.6 100 16 104/53 100 11/17/16 04:00 100 11/17/16 00:00 98 11/17/16 00:00 99.0 98 18 95/49 97 11/16/16 22:26 100 Venturi Mask 50 11/16/16 20:00 100.0 102 20 106/55 100 11/16/16 20:00 102 11/16/16 19:00 96 Venturi Mask 50 11/16/16 16:00 102 11/16/16 16:00 98.3 102 21 93/45 100 11/16/16 14:30 96 Venturi Mask 50 11/16/16 14:30 96 Venturi Mask 50 (Gaviota Nicholson) -: 11/17/16 0414 11/17/16 0414 Imaging Last Impressions Chest X-Ray 11/16/16 0000 Signed Impressions: Service Date/Time: November 15:16 - CONCLUSION: Improving lung aeration and decreasing pulmonary congestion. Chin Noel MD Hip and Pelvis X-Ray 11/15/16 0000 Signed Impressions: Service Date/Time: Tuesday, November 15, 2016 12:30 - CONCLUSION: Expected radiographic appearance immediately status post right bipolar hip arthroplasty. Evert Jackson MD Knee X-Ray 11/14/16 6015 Signed Impressions: Service Date/Time: Monday, November 14, 2016 04:40 - CONCLUSION: 1. Osseous demineralization but no acute fracture. 2. Osteoarthritic changes. 3. Dense atherosclerotic calcification of the regional vasculature, including a probable in situ fem-popliteal bypass graft. Carson Stevens MD Medication Review Current Medications Medications (Trade) Dose Ordered Sig/Tavares Route Start Time Stop Time Status Last Admin (NS Flush) 2 ml UNSCH PRN FLUSH 11/14/16 07:00 (NS Flush) 2 ml BID FLUSH 11/14/16 09:00 11/17/16 08:01 (Tylenol) 650 mg Q4H PRN PO 11/14/16 07:00 (Zofran Inj) 4 mg Q6H PRN IVP 11/14/16 07:00 (Narcan Inj) 0.4 mg UNSCH PRN IV 11/14/16 07:00 (Dulcolax Supp) 10 mg DAILY PRN RECTAL 11/14/16 07:00 (Phoslo) 667 mg TID PO 11/14/16 09:00 11/17/16 08:00 (Colace) 100 mg DAILY PRN PO 11/14/16 07:00 (Lasix) 20 mg DAILY PO 11/14/16 09:00 11/17/16 08:01 (Xalatan 0.005% Opth Soln) 1 drop HS EACH EYE 11/14/16 21:00 11/16/16 21:00 (Synthroid) 112 mcg DAILY@06 PO 11/14/16 07:00 11/17/16 06:00 (Zoloft) 25 mg DAILY PO 11/14/16 09:00 11/17/16 08:01 (Desyrel) 50 mg HS PO 11/14/16 21:00 11/16/16 21:00 (Nephrocaps) 1 cap DAILY PO 11/14/16 09:00 11/17/16 08:01 (Vitamin D3) 2,000 units DAILY PO 11/14/16 09:00 11/17/16 08:01 Pravastatin Sodium 40 mg 40 mg DAILY PO 11/14/16 09:00 11/17/16 08:00 (NS 1000 ml Inj) 1,000 ml @ 0 mls/hr Q0M PRN IV 11/14/16 09:58 Heparin Sodium (Porcine) 8000 units 8,000 units UNSCH PRN IVF 11/14/16 10:00 Sodium Chloride 1,000 ml @ 200 mls/hr Q5H PRN IV 11/14/16 09:58 (NS 1000 ml Inj) 1,000 ml @ 0 mls/hr Q0M PRN IV 11/14/16 09:58 (Mannitol Inj) 12.5 gm UNSCH PRN IV 11/14/16 10:00 (Albumin 25% Inj) 25 gm UNSCH PRN IV 11/14/16 10:00 (NS Flush) 5 ml UNSCH PRN IVF 11/14/16 10:00 (Heparin Inj) UNSCH PRN .XX 11/14/16 10:00 (Gentamicin (Dialysis) Inj) 20 mg UNSCH PRN IV 11/14/16 10:00 (Zofran Inj) 4 mg UNSCH PRN IV 11/14/16 10:00 (Tylenol) 650 mg UNSCH PRN PO 11/14/16 10:00 11/14/16 12:07 (Benadryl) 25 mg UNSCH PRN PO 11/14/16 10:00 (Nitrostat Sl) 0.4 mg UNSCH PRN SL 11/14/16 10:00 (Catapres) 0.1 mg UNSCH PRN PO 11/14/16 10:00 (Gelfoam 12 Mm/7 Mm Top) 1 foam UNSCH PRN TOP 11/14/16 10:00 (Pepcid) 10 mg BID PO 11/14/16 11:00 11/17/16 08:01 (Ofirmev Inj) 1,000 mg Q8H PRN IV 11/14/16 22:00 11/16/16 09:26 (D50w (Vial) Inj) 25 ml Q15M PRN IV PUSH 11/15/16 06:30 11/15/16 06:51 (Glucagon Inj) 1 mg UNSCH PRN OTHER 11/15/16 07:00 (Ecotrin Ec) 81 mg DAILY PO 11/16/16 09:00 11/17/16 08:01 (Plavix) 75 mg DAILY PO 11/16/16 09:00 11/17/16 08:01 (Ultram) 50 mg Q6H PRN PO 11/15/16 16:07 11/16/16 13:13 (Ultram) 50 mg Q4H PRN PO 11/15/16 16:15 (Heparin Inj) 5,000 units Q12HR SQ 11/16/16 21:00 11/17/16 08:01 (Epogen Inj) 4,000 units MoWeFr SQ 11/17/16 18:30 (Gaviota Nicholson) Physical Exam General Appearance: Comfortable, Malnourished (Gaviota Nicholson) Eyes Eye Exam: Sclera White (Gaviota Nicholson) Pulmonary Resp Exam: Clear Bilaterally, Breath Sounds Equal, No Distress (Gaviota Nicholson) Cardiology CV Exam: Regular, Normal Sinus Rhythm (Gaviota Nicholson) Gastrointestinal/Abdomen GI Exam: Soft, Non-Tender (Gaviota Nicholson) Extremeties Extremities Exam: No Edema (Gaviota Nicholson) Neurologic Neuro Exam: Alert, Awake (Gaviota Nicholson) Assessment/Plan Problem List: (1) ESRD (end stage renal disease) on dialysis Plan: Will continue HD on TTS schedule. Continue on PhosLo. Medications should be adjusted for the patient's ESRD. Avoid gadolinium (2) Subcapital fracture of hip Plan: Mgmt as per Ortho. s/p R hemiarthroplasty 11/15 (3) Anemia of renal disease Plan: Epo with HD Sat (4) Failure to thrive in adult Plan: Long-term prognosis remains guarded (Gaviota Nicholson) Gaviota Nicholson Nov 17, 2016 13:02 Pio Morton MD Nov 19, 2016 12:34
[2016-11-17] MEDS: ACETAMINOPHEN 1000 MG/100 ML VIAL IV PRN (14:06)
[2016-11-17] MEDS ORDERED: ULTR50TA5 PO (14:56)
[2016-11-17 14:57] LABS: AUTOMATED NEUTROPHIL # 9.3 TH/MM3 (1.8-7.7); BASOPHIL % 0.2 % (0.0-2.0); EOSINOPHIL # 0.3 TH/MM3 (0-0.4); EOSINOPHIL % 2.8 % (0.0-4.0); HEMATOCRIT 24.5 % (35.0-46.0); HEMO FLAGS DIFF FINAL; LYMPH % 7.5 % (9.0-44.0); LYMPHOCYTE # 0.9 TH/MM3 (1.0-4.8); MEAN CELL VOLUME 91.1 FL (80.0-100.0); MEAN CORPUSCULAR HEMOGLOBIN 30.1 PG (27.0-34.0); MONO % 8.9 % (0.0-8.0); NEUT % 80.6 % (16.0-70.0); PLATELET COUNT 255 TH/MM3 (150-450); RED BLOOD COUNT 2.68 MIL/MM3 (4.00-5.30); RED CELL DISTRIBUTION WIDTH 14.7 % (11.6-17.2); WHITE BLOOD COUNT 11.6 TH/MM3 (4.0-11.0)
--- NOTE | 2016-11-17 14:58 | HHI.DCPOC ---
Discharge Care Plan Diagnosis: (1) Fracture of femoral neck, right (2) ESRD (end stage renal disease) on dialysis (3) Oxygen desaturation with feeding (4) Heart block AV complete Goals to Promote Your Health * To prevent worsening of your condition and complications * To maintain your health at the optimal level Directions to Meet Your Goals Take your medications as prescribed Follow your dietary instruction Follow activity as directed Keep your appointments as scheduled Take your immunizations and boosters as scheduled If your symptoms worsen call your PCP, if no PCP go to Urgent Care Center or Emergency Room Smoking is Dangerous to Your Health. Avoid second hand smoke Call the 24-hour hour crisis hotline for domestic abuse at Radhika Peck MD R2 Nov 17, 2016 14:58
[2016-11-17] MEDS: EPOETIN ALFA 4,000 UNITS/ML VIAL SQ SCH (17:42)
[2016-11-17] MEDS: traZODone HCL 50 MG TAB PO SCH (21:00)
[2016-11-17] MEDS: LATANOPROST 0.005% OPHT SOLN 2.5 ML BTL EACH EYE SCH (21:04)
[2016-11-18] VITALS (7 sets, daily range): BP systolic 111–127; BP diastolic 52–65; PULSE 102–109; RESP 19–22; TEMP 95.8–99.5; O2SAT 98–100
[2016-11-18] MEDS: ACETAMINOPHEN 325 MG TAB PO PRN (04:17)
[2016-11-18 05:38] LABS: MEAN CORPUSCULAR HEMOGLOBIN 31.1 PG (27.0-34.0); MEAN CORPUSCULAR HGB CONC 34.2 % (32.0-36.0); PLATELET COUNT 230 TH/MM3 (150-450); RED BLOOD COUNT 2.42 MIL/MM3 (4.00-5.30); REVIEW FLAG FINAL; WHITE BLOOD COUNT 10.2 TH/MM3 (4.0-11.0)
[2016-11-18] MEDS: LEVOTHYROXINE SODIUM 112 MCG TAB PO SCH (05:50)
[2016-11-18 06:13] LABS: BICARBONATE 28.2 MEQ/L (21.0-32.0); POTASSIUM 4.3 MEQ/L (3.5-5.1)
[2016-11-18] MEDS: HEPARIN SODIUM - SQ 10,000 UNITS/ML VIAL SQ SCH ×2 (09:00→21:00)
[2016-11-18] MEDS: VITAMIN B CMPLX/VITC/FOLIC AC CAP PO SCH (09:00)
[2016-11-18] MEDS: SERTRALINE HCL 50 MG TAB PO SCH (09:00)
[2016-11-18] MEDS: CALCIUM ACETATE 667 MG CAP PO SCH ×3 (09:00→17:38)
[2016-11-18] MEDS: PRAVASTATIN SOD 40 MG TAB PO SCH (09:00)
--- NOTE | 2016-11-18 09:02 | HHI.FPPN ---
Subjective Remarks No acute events overnight. Vital signs unremarkable except for continued tachycardia. Patient is otherwise asymptomatic and denies any pain. Endorses an appetite. (Radhika Peck MD R2) Objective Vitals Vital Signs Date Time Temp Pulse Resp B/P Pulse Ox O2 Delivery O2 Flow Rate FiO2 11/18/16 08:36 99 Nasal Cannula 3.00 11/18/16 04:00 97.7 104 22 114/65 100 11/18/16 00:00 96.2 102 22 116/60 100 11/17/16 22:00 99 Nasal Cannula 3.00 11/17/16 21:53 96.6 108 22 117/63 99 11/17/16 20:56 100 Nasal Cannula 3.00 11/17/16 20:00 102 11/17/16 20:00 97.8 102 23 118/57 100 11/17/16 19:00 100 Nasal Cannula 3.00 11/17/16 16:00 101 11/17/16 16:00 98.9 101 15 122/61 100 11/17/16 12:00 102 11/17/16 12:00 98.3 102 22 121/88 100 I/O 11/17/16 11/17/16 11/17/16 11/18/16 11/18/16 11/18/16 07:00 15:00 23:00 07:00 15:00 23:00 Intake Total 364 ml 460 ml 50 ml Output Total 0 ml 0 ml 10 ml Balance 364 ml 460 ml 40 ml Intake Oral 120 ml 50 ml IV Total 364 ml 340 ml Output Urine Total 0 ml 0 ml 10 ml Stool Total 0 ml 0 ml Drainage Total 0 ml # Bowel Movements 0 (Radhika Peck MD R2) Result Diagram: 11/18/16 0340 11/18/16 0340 Objective Remarks GENERAL: This is a frail elderly female patient laying in bed in no acute distress. CARDIOVASCULAR: Regular rate and rhythm. 2/6 JOE. RESPIRATORY: Clear to auscultation anteriorly. Breath sounds equal bilaterally. No wheezes, rales, or rhonchi. MUSCULOSKELETAL: RLE in brace. Neurovascularly intact. Able to wiggle bilateral toes/feet. NEUROLOGICAL: AAOx3. Slurred speech at baseline but understandable (Radhika Gabriel MD R2) A/P Assessment and Plan Patient is an 89-year-old female with past medical history significant for HTN, hypothyroidism, CAD, ESRD on dialysis, and CHF who due to fall resulting in right subcapital hip fracture. Also found to have hyperkalemia, and heart block. Discharge Planning Today or tomorrow pending further eval of tachycardia. DC to rehab WDW: Dr. Darden and Dr. Da Silva (Radhika Peck MD R2) Attending Attestation Patient seen and examined. Case reviewed and discussed with the resident team. Agree with plan of care as discussed with me and documented in the resident note. (No Darden MD) Problem List: (1) Fracture of femoral neck, right Status: Acute Plan: Hip x-ray significant for diffuse osseous demineralization with a subcapital fracture of the right hip. - Vitamin D supplemenation - pain control: No more than 2mg of morphine, Try Tylenol and/or tramadol as first option Ortho consulted: Appreciate recommendations - S/P R hip arthroplasty without complication on 11/15. Drain discontinued - Rehab - Resume DVT prophylaxis - Okay to dc (2) Tachycardia Status: Acute Plan: Persistent tachycardia since admission that has not improved with pain control. May be related to anemia as H&H has been down trending but etiology unclear. Patient is clinically stable -Repeat EKG -Consider obtaining a VQ scan -Will be discussing with attending on further management (3) Oxygen desaturation with feeding Status: Resolved Plan: On 11/16, patient had episode of desaturation that occurred during lunch. Resolved with Ventimask supplementation that is currently weaned down to nasal cannula. Since symptoms were related to eating, there was concern about aspiration due to history of prior strokes. Today patient is doing well. Suspect tachycardia may be due to uncontrolled pain. Will refrain from aggressive measures at this time. -wean off of O2 -Reevaluation by speech -Wells criteria of 3 but VQ scan was was deferred at the time of exam due to patient noncompliance -Patient not a candidate for CTA -Closely monitor (4) ESRD (end stage renal disease) on dialysis Status: Chronic Plan: Hyperkalemia of 6.0 on admission which has resolved Dialysis [id number] Continue home dose of Nephrocaps, cholecalciferol, Phoslo, she has secondary hypoparathyroidism Nephrology consulted for Dialysis and will follow * Epogen * Patient with progressive deterioration in overall condition despite aggressive medical care. * Overall prognosis is poor however and at some point in time I believe that the family will have to consider hospice.. (5) Heart block AV complete Status: Acute Plan: EKG significant for first degree heart block. Currently asymptomatic. Will refrain from aggresive care at this time. TSH WNL Tele (6) CHF, chronic Status: Chronic Plan: Last Echo 07/02/15 significant for EF 35% Continue home dose of Lasix (7) Nutrition, metabolism, and development symptoms Status: Acute Plan: Fluids: None Electrolytes: Mild hyponatremia, continue to monitor Nutrition: Heart Healthy DVT PPx: SCD's, Heparin 5000u BID (Radhika Peck MD R2) Problem Qualifiers (1) Fracture of femoral neck, right: Qualified Code: S72.001A - Closed fracture of neck of right femur, initial encounter (2) CHF, chronic: Qualified Code: I50.22 - Chronic systolic congestive heart failure Radhika Peck MD R2 Nov 18, 2016 09:02 No Darden MD Nov 22, 2016 10:25
--- NOTE | 2016-11-18 11:31 | HHI.NPPN ---
Subjective History of Present Illness 89-year-old female admitted for fractured hip. Interval History The patient was seen during HD. Was agitated and refusing HD at the beginning. Was calmed and now receiving treatment. (Gaviota Nicholson) Objective Data Data 11/17/16 11/18/16 19:00 07:00 Intake Total 460 ml 50 ml Output Total 0 ml 10 ml Balance 460 ml 40 ml Intake Oral 120 ml 50 ml IV Total 340 ml Output Urine Total 0 ml 10 ml Stool Total 0 ml # Bowel Movements 0 Vital Signs Date Time Temp Pulse Resp B/P Pulse Ox O2 Delivery O2 Flow Rate FiO2 11/18/16 10:09 99 Nasal Cannula 3.00 11/18/16 08:36 99 Nasal Cannula 3.00 11/18/16 08:00 99.5 104 19 111/57 100 11/18/16 04:00 97.7 104 22 114/65 100 11/18/16 00:00 96.2 102 22 116/60 100 11/17/16 22:00 99 Nasal Cannula 3.00 11/17/16 21:53 96.6 108 22 117/63 99 11/17/16 20:56 100 Nasal Cannula 3.00 11/17/16 20:00 102 11/17/16 20:00 97.8 102 23 118/57 100 11/17/16 19:00 100 Nasal Cannula 3.00 11/17/16 16:00 101 11/17/16 16:00 98.9 101 15 122/61 100 11/17/16 12:00 102 11/17/16 12:00 98.3 102 22 121/88 100 (Gaviota Nicholson) -: 11/18/16 0340 11/18/16 0340 Medication Review Current Medications Medications (Trade) Dose Ordered Sig/Tavares Route Start Time Stop Time Status Last Admin (NS Flush) 2 ml UNSCH PRN FLUSH 11/14/16 07:00 (NS Flush) 2 ml BID FLUSH 11/14/16 09:00 11/17/16 21:03 (Tylenol) 650 mg Q4H PRN PO 11/14/16 07:00 (Zofran Inj) 4 mg Q6H PRN IVP 11/14/16 07:00 (Narcan Inj) 0.4 mg UNSCH PRN IV 11/14/16 07:00 (Dulcolax Supp) 10 mg DAILY PRN RECTAL 11/14/16 07:00 (Phoslo) 667 mg TID PO 11/14/16 09:00 11/17/16 17:42 (Colace) 100 mg DAILY PRN PO 11/14/16 07:00 (Lasix) 20 mg DAILY PO 11/14/16 09:00 11/17/16 08:01 (Xalatan 0.005% Opth Soln) 1 drop HS EACH EYE 11/14/16 21:00 11/17/16 21:04 (Synthroid) 112 mcg DAILY@06 PO 11/14/16 07:00 11/18/16 05:50 (Zoloft) 25 mg DAILY PO 11/14/16 09:00 11/17/16 08:01 (Desyrel) 50 mg HS PO 11/14/16 21:00 11/17/16 21:00 (Nephrocaps) 1 cap DAILY PO 11/14/16 09:00 11/17/16 08:01 (Vitamin D3) 2,000 units DAILY PO 11/14/16 09:00 11/17/16 08:01 Pravastatin Sodium 40 mg 40 mg DAILY PO 11/14/16 09:00 11/17/16 08:00 (NS 1000 ml Inj) 1,000 ml @ 0 mls/hr Q0M PRN IV 11/14/16 09:58 Heparin Sodium (Porcine) 8000 units 8,000 units UNSCH PRN IVF 11/14/16 10:00 Sodium Chloride 1,000 ml @ 200 mls/hr Q5H PRN IV 11/14/16 09:58 (NS 1000 ml Inj) 1,000 ml @ 0 mls/hr Q0M PRN IV 11/14/16 09:58 (Mannitol Inj) 12.5 gm UNSCH PRN IV 11/14/16 10:00 (Albumin 25% Inj) 25 gm UNSCH PRN IV 11/14/16 10:00 (NS Flush) 5 ml UNSCH PRN IVF 11/14/16 10:00 (Heparin Inj) UNSCH PRN .XX 11/14/16 10:00 (Gentamicin (Dialysis) Inj) 20 mg UNSCH PRN IV 11/14/16 10:00 (Zofran Inj) 4 mg UNSCH PRN IV 11/14/16 10:00 (Tylenol) 650 mg UNSCH PRN PO 11/14/16 10:00 11/18/16 04:17 (Benadryl) 25 mg UNSCH PRN PO 11/14/16 10:00 (Nitrostat Sl) 0.4 mg UNSCH PRN SL 11/14/16 10:00 (Catapres) 0.1 mg UNSCH PRN PO 11/14/16 10:00 (Gelfoam 12 Mm/7 Mm Top) 1 foam UNSCH PRN TOP 11/14/16 10:00 (Pepcid) 10 mg BID PO 11/14/16 11:00 11/17/16 21:03 (Ofirmev Inj) 1,000 mg Q8H PRN IV 11/14/16 22:00 11/17/16 14:06 (D50w (Vial) Inj) 25 ml Q15M PRN IV PUSH 11/15/16 06:30 11/15/16 06:51 (Glucagon Inj) 1 mg UNSCH PRN OTHER 11/15/16 07:00 (Ecotrin Ec) 81 mg DAILY PO 11/16/16 09:00 11/17/16 08:01 (Plavix) 75 mg DAILY PO 11/16/16 09:00 11/17/16 08:01 (Ultram) 50 mg Q6H PRN PO 11/15/16 16:07 11/16/16 13:13 (Ultram) 50 mg Q4H PRN PO 11/15/16 16:15 (Heparin Inj) 5,000 units Q12HR SQ 11/16/16 21:00 11/17/16 21:01 (Epogen Inj) 4,000 units MoWeFr SQ 11/17/16 18:30 11/17/16 17:42 (Gaviota Nicholson) Physical Exam General Appearance: Anxious, Malnourished (Gaviota Nicholson) Eyes Eye Exam: Sclera White (Gaviota Nicholson) Pulmonary Resp Exam: Clear Bilaterally, Breath Sounds Equal, No Distress (Gaviota Nicholson) Cardiology CV Exam: Regular, Normal Sinus Rhythm (Gaviota Nicholson) Gastrointestinal/Abdomen GI Exam: Soft, Non-Tender (Gaviota Nicholson) Extremeties Extremities Exam: No Edema (Gaviota Nicholson) Neurologic Neuro Exam: Alert, Awake (Gaviota Nicholson) Assessment/Plan Problem List: (1) ESRD (end stage renal disease) on dialysis Plan: Will continue HD on TTS schedule. Seen during HD today. Anxious, agitated. Continue on PhosLo. Medications should be adjusted for the patient's ESRD. Avoid gadolinium (2) Subcapital fracture of hip Plan: Mgmt as per Ortho. s/p R hemiarthroplasty 11/15 (3) Anemia of renal disease Plan: Epo with HD Sat. Check Fe stores & FOBT (4) Failure to thrive in adult Plan: Long-term prognosis remains guarded (Gaviota Nicholson) Plan The exam, history, and the medical decision-making described in the above note were completed with the assistance of the PAMartha. I reviewed and agree with the findings presented. (Pio Morton MD) Gaviota Nicholson Nov 18, 2016 11:31 Pio Morton MD Nov 20, 2016 10:13
[2016-11-18 13:25] LABS: FERRITIN 1630 NG/ML (8-252); TRANSFERRIN IRON PROFILE 85 MG/DL (200-360)
[2016-11-18] MEDS ORDERED: ACETAMINOPHEN 325 MG TAB PO PRN (13:30)
[2016-11-18] MEDS: ACETAMINOPHEN 1000 MG/100 ML VIAL IV PRN (14:06)
[2016-11-18] MEDS: CHOLECALCIFEROL (VIT D3) 1000 UNIT TAB PO SCH (14:08)
[2016-11-18] MEDS: CLOPIDOGREL 75 MG TAB PO SCH (14:09)
[2016-11-18] MEDS: FAMOTIDINE 20 MG TAB PO SCH ×2 (14:09→21:00)
[2016-11-18] MEDS: FUROSEMIDE 20 MG TAB PO SCH (14:09)
[2016-11-18] MEDS: ASPIRIN EC 81 MG TABEC PO SCH (14:09)
[2016-11-18] MEDS: LATANOPROST 0.005% OPHT SOLN 2.5 ML BTL EACH EYE SCH (21:00)
[2016-11-18] MEDS: traZODone HCL 50 MG TAB PO SCH (21:00)
[2016-11-18] MEDS: SODIUM CHLORIDE 0.9% FLUSH 5 ML FLUSH FLUSH SCH (22:52)
[2016-11-19] VITALS (7 sets, daily range): BP systolic 112–136; BP diastolic 59–73; PULSE 103–120; RESP 17–20; TEMP 96.6–98.5; O2SAT 93–100
[2016-11-19] MEDS: ACETAMINOPHEN 1000 MG/100 ML VIAL IV PRN (06:27)
[2016-11-19] MEDS: LEVOTHYROXINE SODIUM 112 MCG TAB PO SCH (06:34)
[2016-11-19 07:14] LABS: HEMATOCRIT 25.2 % (35.0-46.0); MEAN CELL VOLUME 91.7 FL (80.0-100.0); MEAN CORPUSCULAR HEMOGLOBIN 30.4 PG (27.0-34.0); MEAN CORPUSCULAR HGB CONC 33.2 % (32.0-36.0); PLATELET COUNT 269 TH/MM3 (150-450); RED BLOOD COUNT 2.75 MIL/MM3 (4.00-5.30); RED CELL DISTRIBUTION WIDTH 14.9 % (11.6-17.2); REVIEW FLAG FINAL; WHITE BLOOD COUNT 10.4 TH/MM3 (4.0-11.0)
[2016-11-19 07:29] LABS: BICARBONATE 30.7 MEQ/L (21.0-32.0); POTASSIUM 4.5 MEQ/L (3.5-5.1)
[2016-11-19] MEDS: PRAVASTATIN SOD 40 MG TAB PO SCH (08:52)
[2016-11-19] MEDS: CLOPIDOGREL 75 MG TAB PO SCH (08:52)
[2016-11-19] MEDS: DOCUSATE SODIUM 100 MG CAP PO SCH ×2 (08:52→21:00)
[2016-11-19] MEDS: CALCIUM ACETATE 667 MG CAP PO SCH ×3 (08:52→17:04)
[2016-11-19] MEDS: SERTRALINE HCL 50 MG TAB PO SCH (08:52)
[2016-11-19] MEDS: FAMOTIDINE 20 MG TAB PO SCH ×2 (08:52→21:00)
[2016-11-19] MEDS: CHOLECALCIFEROL (VIT D3) 1000 UNIT TAB PO SCH (08:52)
[2016-11-19] MEDS: ASPIRIN EC 81 MG TABEC PO SCH (08:52)
[2016-11-19] MEDS: VITAMIN B CMPLX/VITC/FOLIC AC CAP PO SCH (08:52)
[2016-11-19] MEDS: HEPARIN SODIUM - SQ 10,000 UNITS/ML VIAL SQ SCH ×2 (08:53→21:00)
[2016-11-19] MEDS: FUROSEMIDE 20 MG TAB PO SCH (08:53)
[2016-11-19] MEDS: SODIUM CHLORIDE 0.9% FLUSH 5 ML FLUSH FLUSH SCH ×2 (08:53→21:00)
[2016-11-19] MEDS: POLYETHYLENE GLYCOL 17 GM PKG PO SCH (09:00)
[2016-11-19] MEDS: traMADol HCL 50 MG TAB PO PRN ×2 (10:00→14:15)
--- NOTE | 2016-11-19 10:48 | HHI.FPPN ---
Subjective Remarks No acute events overnight. Afebrile. Tachycardic to 109. Patient states she feels well today. No BM. (Leslie García MD R3) Objective Vitals Vital Signs Date Time Temp Pulse Resp B/P Pulse Ox O2 Delivery O2 Flow Rate FiO2 11/19/16 08:47 93 Nasal Cannula 1.00 11/19/16 04:00 96.8 106 20 121/59 100 11/19/16 00:00 96.8 103 20 124/66 100 11/18/16 20:00 96.6 108 22 118/55 98 11/18/16 15:30 95.9 109 20 120/59 100 11/18/16 14:40 18 11/18/16 12:27 95.8 107 20 127/52 100 I/O 11/18/16 11/18/16 11/18/16 11/19/16 11/19/16 11/19/16 07:00 15:00 23:00 07:00 15:00 23:00 Intake Total 50 ml 240 ml 240 ml 50 ml Output Total 10 ml 2000 ml Balance 40 ml -1760 ml 240 ml 50 ml Intake Oral 50 ml 240 ml 240 ml 50 ml Output Urine Total 10 ml 0 ml Hemodialysis 2000 ml # Voids 0 0 0 # Bowel Movements 0 0 0 0 (Leslie García MD R3) Result Diagram: 11/19/1662311/19/16623 Objective Remarks GENERAL: This is a frail elderly female patient laying in bed in no acute distress. CARDIOVASCULAR: Regular rate and rhythm. 2/6 JOE. RESPIRATORY: Clear to auscultation anteriorly. Breath sounds equal bilaterally. No wheezes, rales, or rhonchi. MUSCULOSKELETAL: RLE in brace. Neurovascularly intact. Able to wiggle bilateral toes/feet. NEUROLOGICAL: AAOx3. Slurred speech at baseline but understandable (Leslie García MD R3) A/P Assessment and Plan Patient is an 89-year-old female with past medical history significant for HTN, hypothyroidism, CAD, ESRD on dialysis, and CHF who due to fall resulting in right subcapital hip fracture. Also found to have hyperkalemia, and heart block. Discharge Planning Today or tomorrow pending further eval of tachycardia. DC to rehab (Leslie García MD R3) Attending Attestation Patient seen and examined. Case reviewed and discussed with the resident team. Agree with plan of care as discussed with me and documented in the resident note. (No Darden MD) Problem List: (1) Fracture of femoral neck, right Status: Acute Plan: Hip x-ray significant for diffuse osseous demineralization with a subcapital fracture of the right hip. - Vitamin D supplemenation - pain control: No more than 2mg of morphine, Try Tylenol and/or tramadol as first option Ortho consulted: Appreciate recommendations - S/P R hip arthroplasty without complication on 11/15. Drain discontinued - Rehab - Resume DVT prophylaxis - Okay to dc (2) Tachycardia Status: Acute Plan: Persistent tachycardia since admission that has not improved with pain control. Cardiology consulted for tachycardia with possible a fib. Appreciate recommendations. (3) Oxygen desaturation with feeding Status: Resolved Plan: On 11/16, patient had episode of desaturation that occurred during lunch. Resolved with Ventimask supplementation that is currently weaned down to nasal cannula. Since symptoms were related to eating, there was concern about aspiration due to history of prior strokes. Today patient is doing well. -wean off of O2, patient currently satting well on 1L nc -Reevaluation by speech -Wells criteria of 3 but VQ scan was was deferred at the time of exam due to patient noncompliance -Patient not a candidate for CTA -Closely monitor (4) ESRD (end stage renal disease) on dialysis Status: Chronic Plan: Hyperkalemia of 6.0 on admission which has resolved Dialysis Ed-Wjalp-Wtw Continue home dose of Nephrocaps, cholecalciferol, Phoslo, she has secondary hypoparathyroidism Nephrology consulted for Dialysis and will follow * Epogen * Patient with progressive deterioration in overall condition despite aggressive medical care. * Overall prognosis is poor however and at some point in time I believe that the family will have to consider hospice. (5) Heart block AV complete Status: Acute Plan: EKG significant for first degree heart block. Currently asymptomatic. Will refrain from aggresive care at this time. TSH WNL Tele Cardiology as above (6) CHF, chronic Status: Chronic Plan: Last Echo 07/02/15 significant for EF 35% Continue home dose of Lasix (7) Nutrition, metabolism, and development symptoms Status: Acute Plan: Fluids: None Electrolytes: Replete prn Nutrition: Heart Healthy DVT PPx: SCD's, Heparin 5000u BID (Leslie García MD R3) Problem Qualifiers (1) Fracture of femoral neck, right: Qualified Code: S72.001A - Closed fracture of neck of right femur, initial encounter (2) CHF, chronic: Qualified Code: I50.22 - Chronic systolic congestive heart failure Leslie García MD R3 Nov 19, 2016 10:47 No Darden MD Nov 22, 2016 10:26
[2016-11-19] MEDS: traZODone HCL 50 MG TAB PO SCH (21:00)
[2016-11-19] MEDS: CARVEDILOL 3.125 MG TAB PO SCH (21:00)
[2016-11-19] MEDS: LATANOPROST 0.005% OPHT SOLN 2.5 ML BTL EACH EYE SCH (21:00)
--- NOTE | 2016-11-19 21:00 | HHI.PR ---
Addendum to Inpatient Note Addendum Reason: Additional Documentation Additional Information OFF SERVICE NOTE Mrs. Richey is a 89-year-old female with past medical history significant for HTN, hypothyroidism, CAD, ESRD on dialysis, and CHF who presented on 11/14/16 with leg pain after a fall. She was found down at [facility] after an unwitnessed fall per staff. At baseline the patient has a speech impediment which limits her communication and the history obtained. She was found to have a subcapital fracture of the right hip, complete heart block, and multiple electrolyte abnormalities. She was admitted and taken to dialysis to correct her electrolytes and monitored overnight. On 11/15/16 she was taken to the OR by Orthopedic surgery for an uncomplicated right hip hemiarthroplasty. On POD 1 she experienced oxygen desaturations to the low/mid 80s after eating lunch. Earlier in the day he diet was advanced by ST, but had difficulty swallowing per nursing staff during lunch. On evaluation patient was afebrile in NAD with a saturation of 100% on Ventimask. CXR showed no signs of pneumonia. She was then weened to nasal canula and has had no new episodes. Since that episode, she has been tachycardic to the 110s. CTA for possible PE was unable to be performed due to ESRD and V/Q scan was deferred due to likely patient non- compliance during exam and improvement of respiratory status. For her heart block and continued tachycardia, Cardiology has been consulted and recommendations are pending. Otherwise her hospital course has been uncomplicated. She receives dialysis with Nephrology on TTS with Epogen. Upon discharge she will be transferred back to [facility] for continued rehabilitation. Demetrio Da Silva MD R1 Nov 19, 2016 21:00
[2016-11-20] VITALS: PULSE 79; RESP 20; TEMP 98.3; O2SAT 97
[2016-11-20] MEDS: traMADol HCL 50 MG TAB PO PRN ×2 (00:58→09:55)
[2016-11-20 04:00] VITALS: BP 112/54; PULSE 104; RESP 20; TEMP 97; O2SAT 99
[2016-11-20] MEDS: ACETAMINOPHEN 1000 MG/100 ML VIAL IV PRN (04:09)
[2016-11-20] MEDS: LEVOTHYROXINE SODIUM 112 MCG TAB PO SCH ×2 (06:00→09:54)
[2016-11-20 06:18] LABS: AUTOMATED NEUTROPHIL # 9.8 TH/MM3 (1.8-7.7); BASOPHIL % 0.3 % (0.0-2.0); EOSINOPHIL # 0.3 TH/MM3 (0-0.4); HEMATOCRIT 24.8 % (35.0-46.0); HEMO FLAGS DIFF FINAL; LYMPH % 9.1 % (9.0-44.0); LYMPHOCYTE # 1.1 TH/MM3 (1.0-4.8); MEAN CELL VOLUME 91.2 FL (80.0-100.0); MEAN CORPUSCULAR HEMOGLOBIN 30.5 PG (27.0-34.0); MEAN CORPUSCULAR HGB CONC 33.4 % (32.0-36.0); MONO % 10.5 % (0.0-8.0); NEUT % 78.1 % (16.0-70.0); PLATELET COUNT 309 TH/MM3 (150-450); RED BLOOD COUNT 2.71 MIL/MM3 (4.00-5.30); RED CELL DISTRIBUTION WIDTH 14.7 % (11.6-17.2); WHITE BLOOD COUNT 12.6 TH/MM3 (4.0-11.0)
--- NOTE | 2016-11-20 07:14 | PD.ORT.PN ---
Subjective Subjective Remarks POD 5 s/p right hip hemiarthroplasty resting comfortably. no pain. Objective Vitals Vital Signs Date Time Temp Pulse Resp B/P Pulse Ox O2 Delivery O2 Flow Rate FiO2 11/20/16 04:00 112/54 11/20/16 00:00 98.3 79 20 97 11/19/16 20:00 97.4 105 20 97 11/19/16 19:52 Nasal Cannula 1.00 11/19/16 16:00 97.3 120 18 121/61 97 11/19/16 12:00 96.6 104 18 114/60 99 11/19/16 08:47 93 Nasal Cannula 1.00 11/19/16 08:40 Nasal Cannula 1.00 11/19/16 08:00 98.5 104 17 112/69 100 I/O 11/19/16 11/19/16 11/19/16 11/20/16 11/20/16 11/20/16 07:00 15:00 23:00 07:00 15:00 23:00 Intake Total 50 ml 360 ml Balance 50 ml 360 ml Intake Oral 50 ml 360 ml # Voids 0 # Bowel Movements 0 Result Diagram: 11/20/16 0505 11/19/16 0624 Imaging Last 24 hours Impressions Knee X-Ray 11/14/16 8985 Signed Impressions: Service Date/Time: Monday, November 14, 2016 04:40 - CONCLUSION: 1. Osseous demineralization but no acute fracture. 2. Osteoarthritic changes. 3. Dense atherosclerotic calcification of the regional vasculature, including a probable in situ fem-popliteal bypass graft. Carson Stevens MD Hip and Pelvis X-Ray 11/14/16 9025 Signed Impressions: Service Date/Time: Monday, November 14, 2016 04:35 - CONCLUSION: 1. Diffuse osseous demineralization with a subcapital fracture of the right hip. 2. Dense atherosclerotic calcification of the regional vasculature. Carson Stevens MD Chest X-Ray 11/14/16 0413 Signed Impressions: Service Date/Time: Monday, November 14, 2016 04:31 - CONCLUSION: 1. Left basilar consolidation/effusion. 2. Focal pleural thickening and pleural parenchymal scarring laterally in the right lower lung. 3. Prior CABG. Abandoned epicardial pacer wires. Extensive stenting of the right upper extremity vasculature. 4. Borderline prominent but well compensated heart Carson Stevens MD Objective Remarks RLE: dressings clean and dry. intact. +drain. +knee brace. NVI Assessment & Plan Assessment and Plan 1) Right Subcapital Femoral Neck Fx s/p right hip hemiarthroplasty - POD 5 -WBAT -daily dressing changes and DC drain -knee brace while in bed -posterior hip precautions -DVT prophylaxis -plan for DC to rehab when medically stable -f/u with Chuck or LACEY in 2 weeks Kel Dumont Nov 20, 2016 07:14
--- NOTE | 2016-11-20 07:17 | EKG ---
Date Performed: 11/18/2016 Time Performed: 13:19:14 PTAGE: 89 years EKG: Probable atrial fibrillation with rapid ventricular response with frequent PVCs or aberrant ventricular conduction. Rightward axis Inferior T wave changes are nonspecific Abnormal ECG Compared to PREVIOUS TRACING , previous tracing shows a slow atrial flutter, this appears to be atria l fibrillation. PVCs are new. PREVIOUS TRACIN11/14/2016 05.37 DOCTOR: Paddy Aldridge Interpretating Date/Time 11/20/2016 07:15:26
[2016-11-20 07:26] LABS: BICARBONATE 27.5 MEQ/L (21.0-32.0); POTASSIUM 5.2 MEQ/L (3.5-5.1)
[2016-11-20 08:00] VITALS: BP 111/62; PULSE 101; RESP 18; TEMP 97; O2SAT 100
--- NOTE | 2016-11-20 08:16 | MB ---
cc: RAMAN GARCIA M.D. DATE OF CONSULTATION: 11/19/[address] Da Silva REASON FOR CONSULTATION Rapid heart beat. HISTORY OF PRESENT ILLNESS The patient is an 89-year-old female who is known to Dr. Diaz, though she has not seen him since January of 2015. The patient was admitted on November 14 after she was reaching for a candy bar from her wheelchair, lost her balance and fell, and was found to have a hip fracture. The patient has a history of proximal atrial fibrillation and left ventricular dysfunction. She was seen in this hospital by Dr. Diaz in 2012 because of a slow heart rate. She is on chronic dialysis. At the present time she appears to be in sinus rhythm, though earlier she was in atrial fibrillation. She does have a history of prior strokes. She lives in [facility]. ALLERGIES PENICILLIN. MEDICATIONS Home medications: 1. Amlodipine 5 mg a day. 2. Clopidogrel 75 mg a day. 3. Furosemide 20 mg a day. 4. Lovastatin 20 mg a day. 5. Levothyroxine 125 mcg a day. 6. Sertraline 25 mg a day. 7. PhosLo 667 three times a day. 8. Vitamin-D3. PAST SURGICAL HISTORY The patient had prior CABG and tricuspid valve repair. PHYSICAL EXAMINATION GENERAL: She is a frail-appearing elderly female who is resting comfortably and in no acute distress. She is somewhat hard of hearing. VITAL SIGNS: Heart rate is 108 and regular, blood pressure 118/55. HEENT: Tongue appears to be dry. LUNGS: Decreased breath sounds at the bases. ABDOMEN: Soft. EXTREMITIES: She has no peripheral edema. LABORATORY DATA Hemoglobin 8.4, hematocrit 25.2. BUN 28, creatinine 3.97, potassium was 4.5. IMPRESSION 1. Status post hip fracture. 2. Status post CABG and tricuspid valve repair. 3. Chronic renal failure on dialysis. 4. Diabetes. 5. Proximal atrial fibrillation. ASSESSMENT AND PLAN I am going to cautiously add a low-dose beta rock to her medical regimen. She has had bradycardia in the past and will need to be watched to be sure she does not develop a recurrent slow heart rate. Thank you for asking us to see her. MD JOSE LUIS Pulido/RONNIE /11:54 AM /7:03 AM MTDD
[2016-11-20] MEDS ORDERED: LACTULOSE SYRUP 20 GM/30 ML CUP PO SCH (09:00)
--- NOTE | 2016-11-20 09:43 | RADRPT ---
EXAM DATE/TIME: 11/20/2016 08:50 [facility] COMPARISON: CHEST SINGLE AP, November 16, 2016, 15:16. INDICATIONS : Shortness of breath. MEDICAL HISTORY : None. SURGICAL HISTORY : ENCOUNTER: Initial ACUITY: 1 day PAIN SCORE: 0/10 LOCATION: Chest FINDINGS: Vascular stents are seen on the right. Minimal consolidative changes are present in the left base. These have progressed in the interval. Heart is minimally enlarged. Pulmonary vascularity is normal . Portion of bony skeleton visualized is unremarkable. CONCLUSION: Progression of consolidative changes left base. Henry Del Valle MD FACR on November 20, 2016 at 9:39 Board Certified Radiologist. This report was verified electronically.
[2016-11-20] MEDS: EPOETIN ALFA 4,000 UNITS/ML VIAL SQ SCH (09:51)
[2016-11-20] MEDS: HEPARIN SODIUM - SQ 10,000 UNITS/ML VIAL SQ SCH (09:52)
[2016-11-20] MEDS: ASPIRIN EC 81 MG TABEC PO SCH (09:53)
[2016-11-20] MEDS: CHOLECALCIFEROL (VIT D3) 1000 UNIT TAB PO SCH (09:53)
[2016-11-20] MEDS: DOCUSATE SODIUM 100 MG CAP PO SCH (09:54)
[2016-11-20] MEDS: CARVEDILOL 3.125 MG TAB PO SCH (09:54)
[2016-11-20] MEDS: CALCIUM ACETATE 667 MG CAP PO SCH ×2 (09:54→11:42)
[2016-11-20] MEDS: CLOPIDOGREL 75 MG TAB PO SCH (09:54)
[2016-11-20] MEDS: FAMOTIDINE 20 MG TAB PO SCH (09:54)
[2016-11-20] MEDS: VITAMIN B CMPLX/VITC/FOLIC AC CAP PO SCH (09:54)
[2016-11-20] MEDS: SERTRALINE HCL 50 MG TAB PO SCH (09:54)
[2016-11-20] MEDS: FUROSEMIDE 20 MG TAB PO SCH (09:54)
[2016-11-20] MEDS: SODIUM CHLORIDE 0.9% FLUSH 5 ML FLUSH FLUSH SCH (09:55)
[2016-11-20] MEDS: PRAVASTATIN SOD 40 MG TAB PO SCH (09:55)
[2016-11-20] MEDS: POLYETHYLENE GLYCOL 17 GM PKG PO SCH (09:56)
--- NOTE | 2016-11-20 10:14 | HHI.NPPN ---
Subjective History of Present Illness 89-year-old female admitted for fractured hip. Interval History Seems more alert today. No verbal complaints. Objective Data Data 11/19/16 11/20/16 19:00 07:00 Intake Total 360 ml Balance 360 ml Intake Oral 360 ml Vital Signs Date Time Temp Pulse Resp B/P Pulse Ox O2 Delivery O2 Flow Rate FiO2 11/20/16 04:00 97.0 104 20 99 11/20/16 04:00 112/54 11/20/16 00:00 98.3 79 20 97 11/19/16 20:00 97.4 105 20 97 11/19/16 19:52 Nasal Cannula 1.00 11/19/16 16:00 97.3 120 18 121/61 97 11/19/16 12:00 96.6 104 18 114/60 99 -: 11/20/16 0505 11/20/16 0505 Physical Exam General Appearance: Anxious, Malnourished Eyes Eye Exam: Sclera White Pulmonary Resp Exam: Clear Bilaterally, Breath Sounds Equal, No Distress Cardiology CV Exam: Regular, Normal Sinus Rhythm Gastrointestinal/Abdomen GI Exam: Soft, Non-Tender Extremeties Extremities Exam: No Edema Neurologic Neuro Exam: Alert, Awake Assessment/Plan Problem List: (1) ESRD (end stage renal disease) on dialysis Plan: Will continue HD on TTS schedule. Continue on PhosLo. Medications should be adjusted for the patient's ESRD. Avoid gadolinium (2) Subcapital fracture of hip Plan: Mgmt as per Ortho. s/p R hemiarthroplasty 11/15 (3) Anemia of renal disease Plan: Epo with HD Sat. Check Fe stores & FOBT (4) Failure to thrive in adult Plan: Long-term prognosis remains guarded Pio Morton MD Nov 20, 2016 10:14
[2016-11-20] MEDS ORDERED: CARV3.125 PO (11:23)
--- NOTE | 2016-11-20 11:37 | HHI.FPPN ---
Subjective Remarks No acute events overnight. Vital signs continue show tachycardia but no changes in BP or fever. This morning patient states that she is doing okay and has no pain. Clinically patient looks much better. Denies any chest pain, SOB. (Radhika Peck MD R2) Objective Vitals Vital Signs Date Time Temp Pulse Resp B/P Pulse Ox O2 Delivery O2 Flow Rate FiO2 11/20/16 04:00 97.0 104 20 99 11/20/16 04:00 112/54 11/20/16 00:00 98.3 79 20 97 11/19/16 20:00 97.4 105 20 97 11/19/16 19:52 Nasal Cannula 1.00 11/19/16 16:00 97.3 120 18 121/61 97 11/19/16 12:00 96.6 104 18 114/60 99 I/O 11/19/16 11/19/16 11/19/16 11/20/16 11/20/16 11/20/16 07:00 15:00 23:00 07:00 15:00 23:00 Intake Total 50 ml 360 ml Balance 50 ml 360 ml Intake Oral 50 ml 360 ml # Voids 0 1 # Bowel Movements 0 2 (Radhika Peck MD R2) Result Diagram: 11/20/16 0505 11/20/16 0505 Objective Remarks GENERAL: This is a frail elderly female patient laying in bed in no acute distress. Better able to hold conversation. CARDIOVASCULAR: Regular rate and rhythm. 2/6 JOE. RESPIRATORY: Clear to auscultation anteriorly. Breath sounds equal bilaterally. No wheezes, rales, or rhonchi. MUSCULOSKELETAL: RLE in brace. Neurovascularly intact. Able to wiggle bilateral toes/feet. NEUROLOGICAL: AAOx3. Slurred speech at baseline but understandable (Radhika Gabriel MD R2) A/P Assessment and Plan Patient is an 89-year-old female with past medical history significant for HTN, hypothyroidism, CAD, ESRD on dialysis, and CHF who due to fall resulting in right subcapital hip fracture. Also found to have hyperkalemia, and heart block. Discharge Planning Today DC to rehab sdw Dr. Ivette Darden (Radhika Peck MD R2) Attending Attestation Patient seen and examined. Case reviewed and discussed with the resident team. Agree with plan of care as discussed with me and documented in the resident note. (No Darden MD) Problem List: (1) Fracture of femoral neck, right Status: Acute Plan: Hip x-ray significant for diffuse osseous demineralization with a subcapital fracture of the right hip. - Vitamin D supplemenation - pain control: No more than 2mg of morphine, Try Tylenol and/or tramadol as first option Ortho consulted: Appreciate recommendations - S/P R hip arthroplasty without complication on 11/15. Drain discontinued - Rehab - Resume DVT prophylaxis - Okay to dc (2) Tachycardia Status: Acute Plan: Persistent tachycardia since admission that has not improved with pain control. Cardiology consulted for tachycardia with possible a fib. Appreciate recommendations. * Cautiously add a low-dose beta rock so that she does not develop a recurrent slow heart rate (3) Leukocytosis Status: Acute Plan: Patient initially had leukocytosis that down trended on admission that was suspected to be due to a stress response. Recurrent episode of leukocytosis today (11/20/2016) but the patient is clinically doing well. No evidence of infectious etiology as repeat chest x-ray is grossly unchanged from admission. Due to patient's frail status and multiple comorbidities, we'll refrain from excessive medication and intervention as she has a high likelihood for adverse effects. -Since patient is clinically doing well in regards to her respiratory status and mentation, we'll refrain from antibiotics at this time. As patient is returning to a custodial facility, there'll be close monitoring by nurses and physicians to monitor for any changes and need for more treatments. (4) Anemia of renal disease Status: Acute Plan: H&H was down trending but has now stabilized -No concern for an acute bleed (5) ESRD (end stage renal disease) on dialysis Status: Chronic Plan: Hyperkalemia of 6.0 on admission which has resolved Dialysis Lq-Ueudr-Smi Continue home dose of Nephrocaps, cholecalciferol, Phoslo, she has secondary hypoparathyroidism Nephrology consulted for Dialysis and will follow * Epogen * Patient with progressive deterioration in overall condition despite aggressive medical care. * Overall prognosis is poor however and at some point in time I believe that the family will have to consider hospice. (6) Heart block AV complete Status: Acute Plan: EKG significant for first degree heart block. Currently asymptomatic. Will refrain from aggresive care at this time. TSH WNL Tele Cardiology as above (7) CHF, chronic Status: Chronic Plan: Last Echo 07/02/15 significant for EF 35% Continue home dose of Lasix (8) Nutrition, metabolism, and development symptoms Status: Acute Plan: Fluids: None Electrolytes: Replete prn Nutrition: Heart Healthy DVT PPx: SCD's, Heparin 5000u BID (Radhika Peck MD R2) Problem Qualifiers (1) Fracture of femoral neck, right: Qualified Code: S72.001A - Closed fracture of neck of right femur, initial encounter (2) Leukocytosis: Qualified Code: D72.828 - Other elevated white blood cell (WBC) count (3) CHF, chronic: Qualified Code: I50.22 - Chronic systolic congestive heart failure Radhika Peck MD R2 Nov 20, 2016 11:37 No Darden MD Nov 22, 2016 10:27
[2016-11-20] MEDS: ACETAMINOPHEN 325 MG TAB PO PRN (11:43)
--- NOTE | 2016-11-20 12:07 | HHI.DS ---
Discharge Summary Admission Date Nov 14, 2016 at 06:26 Discharge Date: Nov 20, 2016 Admitting Diagnosis right femoral neck fx, hyperkalemia, dialysis patient (1) Fracture of femoral neck, right Plan: Hip x-ray significant for diffuse osseous demineralization with a subcapital fracture of the right hip. - Vitamin D supplemenation - pain control: No more than 2mg of morphine, Try Tylenol and/or tramadol as first option Ortho consulted: Appreciate recommendations - S/P R hip arthroplasty without complication on 11/15. Drain discontinued - Rehab - Resume DVT prophylaxis - Okay to dc (2) Tachycardia Plan: Persistent tachycardia since admission that has not improved with pain control. Cardiology consulted for tachycardia with possible a fib. Appreciate recommendations. * Cautiously add a low-dose beta rock so that she does not develop a recurrent slow heart rate (3) Leukocytosis Plan: Patient initially had leukocytosis that down trended on admission that was suspected to be due to a stress response. Recurrent episode of leukocytosis today (11/20/2016) but the patient is clinically doing well. No evidence of infectious etiology as repeat chest x-ray is grossly unchanged from admission. Due to patient's frail status and multiple comorbidities, we'll refrain from excessive medication and intervention as she has a high likelihood for adverse effects. -Since patient is clinically doing well in regards to her respiratory status and mentation, we'll refrain from antibiotics at this time. As patient is returning to a senior care facility, there'll be close monitoring by nurses and physicians to monitor for any changes and need for more treatments. (4) Anemia of renal disease Plan: H&H was down trending but has now stabilized -No concern for an acute bleed (5) ESRD (end stage renal disease) on dialysis Plan: Hyperkalemia of 6.0 on admission which has resolved Dialysis Cn-Vnbko-Dqp Continue home dose of Nephrocaps, cholecalciferol, Phoslo, she has secondary hypoparathyroidism Nephrology consulted for Dialysis and will follow * Epogen * Patient with progressive deterioration in overall condition despite aggressive medical care. * Overall prognosis is poor however and at some point in time I believe that the family will have to consider hospice. (6) Heart block AV complete Plan: EKG significant for first degree heart block. Currently asymptomatic. Will refrain from aggresive care at this time. TSH WNL Tele Cardiology as above (7) CHF, chronic Plan: Last Echo 07/02/15 significant for EF 35% Continue home dose of Lasix (8) Nutrition, metabolism, and development symptoms Plan: Fluids: None Electrolytes: Replete prn Nutrition: Heart Healthy DVT PPx: SCD's, Heparin 5000u BID Consultants Nephrology Cardiology Ortho Procedures Right hip hemiarthroplasty Brief History Ms Richey is an 89-year-old female with past medical history significant for HTN , hypothyroidism, CAD, ESRD on dialysis, and CHF who presented with leg pain after a fall. Patient is a resident of [facility] where she fell the afternoon before she was admitted. Mechanism of fall was unable to be elicited due to patient's speech impairment. She was experiencing pain in her right anterior leg and knee that did not improve with Tylenol. She was sent to the ED and found to have a right subcapital hip fracture, hyperkalemia, and heart block. She was admitted to the hospital and given dialysis the day of admission to adjust her electrolytes and fluid status prior to surgery which was done today. She did well with surgery and was alert and conversant in the room. However, she evidently bit the nurse after anesthesia and has a history of confusion/ agitation with narcotics. Yesterday, her son discussed that she had poor tolerance for narcotics and could hallucinate and be "crazy" with narcotics. She did fine with 2 mg of morphine in the ED on admission but bit her nurse when given 4 mg or morphine after surgery. We discussed, her son and daughter and Medical team that we would try to stick with tramadol only but if her pain is very bad, only 1 mg or so of morphine would be given. Her breathing is fine after surgery and her speech is always impaired but she was answering questions appropriately this afternoon. CBC/BMP: 11/20/16 0505 11/20/16 0505 Significant Findings Laboratory Tests Test 11/17/16 11/18/16 11/18/16 11/19/16 14:28 03:40 12:30 06:24 White Blood Count 11.6 TH/MM3 (4.0-11.0) Red Blood Count 2.68 MIL/MM3 2.42 MIL/MM3 2.75 MIL/MM3 (4.00-5.30) (4.00-5.30) (4.00-5.30) Hemoglobin 8.1 GM/DL 7.5 GM/DL 8.4 GM/DL (11.6-15.3) (11.6-15.3) (11.6-15.3) Hematocrit 24.5 % 22.0 % 25.2 % (35.0-46.0) (35.0-46.0) (35.0-46.0) Neutrophils (%) (Auto) 80.6 % (16.0-70.0) Lymphocytes (%) (Auto) 7.5 % (9.0-44.0) Monocytes (%) (Auto) 8.9 % (0.0-8.0) Neutrophils # (Auto) 9.3 TH/MM3 (1.8-7.7) Lymphocytes # (Auto) 0.9 TH/MM3 (1.0-4.8) Monocytes # (Auto) 1.0 TH/MM3 (0-0.9) Sodium Level 133 MEQ/L 135 MEQ/L (136-145) (136-145) Chloride Level 94 MEQ/L 95 MEQ/L (98-107) (98-107) Blood Urea Nitrogen 36 MG/DL (7-18) 28 MG/DL (7-18) Creatinine 5.39 MG/DL 3.97 MG/DL (0.50-1.00) (0.50-1.00) Estimat Glomerular Filtration 7 ML/MIN (>89) 11 ML/MIN (>89) Rate Random Glucose 141 MG/DL (74-106) Calcium Level 8.2 MG/DL 8.4 MG/DL (8.5-10.1) (8.5-10.1) Albumin 2.3 GM/DL 2.3 GM/DL (3.4-5.0) (3.4-5.0) Iron Level 31 MCG/DL (50-170) Total Iron Binding Capacity 119 MCG/DL (250-450) Ferritin 1630 NG/ML (8-252) Test 11/20/16 05:05 White Blood Count 12.6 TH/MM3 (4.0-11.0) Red Blood Count 2.71 MIL/MM3 (4.00-5.30) Hemoglobin 8.3 GM/DL (11.6-15.3) Hematocrit 24.8 % (35.0-46.0) Neutrophils (%) (Auto) 78.1 % (16.0-70.0) Monocytes (%) (Auto) 10.5 % (0.0-8.0) Neutrophils # (Auto) 9.8 TH/MM3 (1.8-7.7) Monocytes # (Auto) 1.3 TH/MM3 (0-0.9) Sodium Level 129 MEQ/L (136-145) Potassium Level 5.2 MEQ/L (3.5-5.1) Chloride Level 91 MEQ/L (98-107) Blood Urea Nitrogen 40 MG/DL (7-18) Creatinine 5.26 MG/DL (0.50-1.00) Estimat Glomerular Filtration 8 ML/MIN (>89) Rate Random Glucose 113 MG/DL (74-106) Calcium Level 8.3 MG/DL (8.5-10.1) Imaging Last Impressions Chest X-Ray 11/16/16 0000 Signed Impressions: Service Date/Time: November 15:16 - CONCLUSION: Improving lung aeration and decreasing pulmonary congestion. Chin Noel MD Hip and Pelvis X-Ray 11/15/16 0000 Signed Impressions: Service Date/Time: Tuesday, November 15, 2016 12:30 - CONCLUSION: Expected radiographic appearance immediately status post right bipolar hip arthroplasty. Evert Jackson MD Knee X-Ray 11/14/16 0445 Signed Impressions: Service Date/Time: Monday, November 14, 2016 04:40 - CONCLUSION: 1. Osseous demineralization but no acute fracture. 2. Osteoarthritic changes. 3. Dense atherosclerotic calcification of the regional vasculature, including a probable in situ fem-popliteal bypass graft. Carson Stevens MD PE at Discharge GENERAL: This is a frail elderly female patient laying in bed in no acute distress. Better able to hold conversation. CARDIOVASCULAR: Regular rate and rhythm. 2/6 JOE. RESPIRATORY: Clear to auscultation anteriorly. Breath sounds equal bilaterally. No wheezes, rales, or rhonchi. MUSCULOSKELETAL: RLE in brace. Neurovascularly intact. Able to wiggle bilateral toes/feet. NEUROLOGICAL: AAOx3. Slurred speech at baseline but understandable Hospital Course Mrs. Richey is a 89-year-old female with past medical history significant for HTN, hypothyroidism, CAD, ESRD on dialysis, and CHF who presented on 11/14/16 with leg pain after a fall. She was found down at [facility] after an unwitnessed fall per staff. She was found to have a subcapital fracture of the right hip, complete heart block, and multiple electrolyte abnormalities. She was admitted and taken to dialysis to correct her electrolytes. On 11/15/16 she was taken to the OR by Orthopedic surgery for an uncomplicated right hip hemiarthroplasty. On POD 1 she experienced oxygen desaturations to the low/mid 80s after eating lunch which quickly resolved with ventimask. Diet was changed per speech recommendations. She was then weened to nasal canula and has had no new episodes. Throughout hospitalization, pt was tachycardiac but otherwise asymptomatic. Cardiology was consulted who started Coreg. Due to pt's frail status, agressive interventions were deferred as she is at a high risk for adverse events. Since patient had clinically improved and was doing well, she was discharged in stable condition. Pt Condition on Discharge: Stable Discharge Disposition: Discharge to SNF Discharge Instructions DIET: Follow Instructions for: Heart Healthy Diet Speech Therapy-Diet Recommends: Mechanical Soft, Chopped Meat w/Gravy Additional Diet Instructions: Per Speech recommendations Activities you can perform: Weight Bearing as Mack Other Activity Instructions: Per ortho recommendations Follow up Referrals: Appointment for Follow Up - 1 Week with Najma Pickard MD Cardiology - 1 Week with Amol Diaz MD Nephrology - 2-3 Days Orthopedics - 2 Weeks @ [facility] with Victorino Woods MD New Medications: Hydrocodone-Acetaminophen ([place]) 5-325 mg Tab 1 TAB PO Q4H PRN PAIN #50 Ref 0 TAB Walker/Adult/Folding (Walker/Adult/Folding) 1 Mis Mis 1 EA .ROUTE DIRECTED #1 Ref 0 EA Carvedilol (Coreg) 3.125 Mg Tab 3.125 MG PO Q12HR #60 TAB Tramadol (Ultram) 50 Mg Tab 50 MG PO Q4H PRN PAIN SCALE 6-10 #30 TAB Continued Medications: Acetaminophen (Tylenol) 325 Mg Cap 325 MG PO Q6H PRN pain #30 Ref 0 CAP Amlodipine (Amlodipine) 5 Mg Tab 5 MG PO DAILY Blood Pressure Management #[address] (Aspirin 81) 81 Mg Tabdr 81 MG PO DAILY Ref 0 TAB B-Complex W/ C & Folic Acid (Nephro-Donald) 1 Tab 1 TAB PO DAILY Nutritional Supplement #30 Ref 0 TAB Bisacodyl Supp (Dulcolax Supp) 10 Mg Supp 10 MG RECTAL DAILY PRN CONSTIPATION #12 Ref 0 SUPP Calcium Acetate (Phosphate Binder) (Phoslo) 667 Mg Cap 667 MG PO TID Hyperphosphatemia #90 Ref 0 CAP Cholecalciferol (Vitamin D3) 2,000 Unit Chew 2000 UNITS CHEW DAILY #1 BOTTLE Clopidogrel (Plavix) 75 Mg Tab 75 MG PO DAILY Blood Clot Prevention #30 Ref 0 TAB Docusate Sodium (Colace) 100 Mg Cap 100 MG PO DAILY PRN Constipation #60 Ref 0 CAP Furosemide (Lasix) 20 Mg Tab 20 MG PO DAILY #30 Ref 0 TAB Ipratropium HFA 12.9 GM Inh (Atrovent HFA 12.9 GM Inh) 17 Mcg/Act Aer 2 PUFF INH Q6HR PRN SHORTNESS OF BREATH #1 Ref 0 INHALER Ipratropium Nasal (Ipratropium Nasal) Unknown Strength [place] Unknown Dose UNITS Latanoprost Opth Drops (Xalatan Opth Drops) 0.005% Drops 1 DROP EACH EYE HS Glaucoma #2.5 Ref 0 ML Levothyroxine (Levothyroxine) 112 Mcg Tab 112 MCG PO DAILY #30 Ref 0 TAB Lovastatin (Lovastatin) 40 Mg Tab 40 MG PO DAILY Cholesterol Management #30 Ref 0 TAB Nutritional Supplements (Nepro) 1 Liq Liq 1 CAN PO DAILY Ondansetron (Zofran) 4 Mg Tab 4 MG PO Q8HR PRN NAUSEA OR VOMITING #30 Ref 0 TAB Polyethylene Glycol 3350 Powder (Miralax Powder) 17 Gm Powd 17 GM PO DAILY Mix and dissolve one measuring cap-ful (17 grams) in water or juice. Constipation #1 Ref 0 BOTTLE Ranitidine (Zantac) 150 Mg Tab 75 MG PO DAILY Reduce Stomach Acid #60 Ref 0 TAB Sertraline (Zoloft) 25 Mg Tab 25 MG PO DAILY #30 Ref 0 TAB Trazodone (Trazodone) 50 Mg Tab 50 MG PO HS Pain Management #30 Ref 0 TAB Vitamin B Cmplx/Vit C/Folic AC (Nephro-Donald Rx) Unknown Strength Tab Unknown Dose PO TAB Discontinued Medications: Levothyroxine (Levothyroxine) 125 Mcg Tab 125 MCG PO DAILY Thyroid #30 Ref 0 TAB Lovastatin (Lovastatin) 20 Mg Tab 20 MG PO DAILY Cholesterol Management #30 Ref 0 TAB Magnesium Hydroxide Liq (Milk of Magnesia Liq) 400 Mg/5 Ml Susp UNITS Sodium Phosphates Rectal (Fleet Enema Rectal) 7-19 Gm/118 Ml Enem 118 ML RECTAL DAILY PRN CONSTIPATION Ref 0 BOTTLE Radhika Peck MD R2 Nov 20, 2016 12:07
[2016-11-20] MEDS ORDERED: ZANTTAB9 PO (22:20)
[2016-11-24] MEDS ORDERED: HYDR-2376 PO (15:11)
[2016-12-04] MEDS ORDERED: HYDR-2376 PO (18:19)
[2016-12-04] MEDS ORDERED: TRAZ50TA12 PO (18:19)
[2016-12-04] MEDS ORDERED: ZOLO25TA PO (18:19)
[2016-12-06] MEDS ORDERED: PERI8.6T PO (15:19)
[2016-12-06] MEDS ORDERED: HYDR-3366 PO (15:19)
[2016-12-08] MEDS ORDERED: HYDR-3366 PO (16:21)
== END 2016-11-20 14:50 | DRG 469 ==
LOC: NEPE 03:30 → NEDA 06:26 → N03B 08:39 → N06B 11-15 09:21 → N03B 11-15 13:58 → N06B 11-17 21:52
PROVIDERS: ADMIT Family Medicine; ATTEND Family Medicine
PROC: 5A1D60Z (ICD-10-PCS; 2016-11-15)
PROC: 0SRR01Z Replacement of Right Hip Joint, Femoral Surface with Metal Synthetic Substitute, Open Approach (ICD-10-PCS; principal; 2016-11-15 09:58)
DX: S72.011A Unspecified intracapsular fracture of right femur, initial encounter for closed fracture (principal); N18.6 End stage renal disease; I44.2 Atrioventricular block, complete; I12.0 Hypertensive chronic kidney disease with stage 5 chronic kidney disease or end stage renal disease; I50.22 Chronic systolic (congestive) heart failure; E87.1 Hypo-osmolality and hyponatremia; E11.22 Type 2 diabetes mellitus with diabetic chronic kidney disease; I48.0 Paroxysmal atrial fibrillation; E87.5 Hyperkalemia; D63.1 Anemia in chronic kidney disease; E78.5 Hyperlipidemia, unspecified; E03.9 Hypothyroidism, unspecified; I25.10 Atherosclerotic heart disease of native coronary artery without angina pectoris; H35.30 Unspecified macular degeneration; I69.322 Dysarthria following cerebral infarction; M19.90 Unspecified osteoarthritis, unspecified site; J44.9 Chronic obstructive pulmonary disease, unspecified; E20.9 Hypoparathyroidism, unspecified; R00.0 Tachycardia, unspecified; E11.51 Type 2 diabetes mellitus with diabetic peripheral angiopathy without gangrene; H40.9 Unspecified glaucoma; R62.7 Adult failure to thrive; W05.0XXA Fall from non-moving wheelchair, initial encounter; Z66 Do not resuscitate; Z79.84 Long term (current) use of oral hypoglycemic drugs; Y92.129 Unspecified place in nursing home as the place of occurrence of the external cause; Z95.1 Presence of aortocoronary bypass graft; Z95.2 Presence of prosthetic heart valve; Z99.2 Dependence on renal dialysis; Z99.3 Dependence on wheelchair
CPT/HCPCS: 51702; 71010; 73502; 73560; 76937; 80048; 80053; 80069; 80076; 82306; 82728; 82948; 83540; 83550; 83735; 83970; 84100; 84132; 84443; 85025; 85027; 85610; 85730; 90935; 93005; 94664; 96361; 96374; 96375; C1776; J0131; J0456; J0610; J0690; J0696; J1580; J1644; J1815; J2270; J2370; J2405; J3010; J3370; J7030; J7050; J7613; L1830; Q4081

== ENCOUNTER 2016-12-15 04:34 | Inpatient (IN) | payer MEDICARE, OTHER ==
[2016-12-15] VITALS (10 sets, daily range): BP systolic 102–162; BP diastolic 57–68; PULSE 52–89; RESP 16–20; TEMP 97.2–98.4; O2SAT 94–100
[~2016-12-15] VITALS: Ht 162.6 cm; Wt 68.4 kg
[~2016-12-15 04:34] MED LIST changes: -ACET1CAP18 PO; +CARV3.125 PO; -COLA100C3 PO; -FLEEENE3 RECTAL; +HYDR-3366 PO; -LEVO125T4 PO; -LOVA20TA PO; +LOVA40TA PO; -MILKSUS4; +PERI8.6T PO; +WALKER/ADULT/FO1 MIS; -ZANT150T2 PO; +ZANTTAB9 PO; -ZOLO25TA PO
--- NOTE | 2016-12-15 04:48 | PD ---
HPI Chief Complaint: Fall Time Seen by Provider: 04:43 Travel History International Travel<30 days: No Contact w/Intl Traveler<30days: No Traveled to known affect area: No History of Present Illness HPI This is an 89-year-old female who has a history of right hip arthroplasty 3 weeks ago in the setting of a femur fracture who presents to the emergency department having been found by [facility] staff on the floor having fallen. Patient is reporting severe pain in her right hip. Otherwise she has no complaints. She is a very poor historian. PFSH Past Medical History Arthritis: Yes Asthma: No Atrial Fibrillation: Yes Blood Disorders: No Heart Rhythm Problems: Yes Cancer: No Cardiovascular Problems: Yes (ATRIAL FIBRILLATION, CAD) High Cholesterol: Yes Chemotherapy: No COPD: Yes Diabetes: Yes (TYPE II) Dialysis: Yes (TUE, THURS, SAT) Diminished Hearing: No Endocrine: Yes Glaucoma: Yes Genitourinary: Yes Hepatitis: No Hiatal Hernia: No Hypertension: Yes Immune Disorder: No Musculoskeletal: Yes (L CARPAL TUNNEL, GAIT DISTURBANCE) Neurologic: Yes (R ARM WEAKNESS AND DYSARTHRIA) Psychiatric: No Reproductive: No Respiratory: No Immunizations Current: Yes Radiation Therapy: No Sleep Apnea: No Thyroid Disease: Yes (HYPOTHYROIDISM) Menopausal: Yes Past Surgical History Abdominal Surgery: No AICD: No Cardiac Surgery: No Ear Surgery: No Endocrine Surgery: No Eye Surgery: No Genitourinary Surgery: No Gynecologic Surgery: No Joint Replacement: No Oral Surgery: No Pacemaker: No Thoracic Surgery: Yes (LUNG LOBE REMOVED) Valve Replacement: Yes (AV FISTUA RUE) Other Surgery: Yes Social History Alcohol Use: Yes (RARELY) Tobacco Use: No Substance Use: No Allergies-Medications (Allergen,Severity, Reaction): Coded Allergies: Adhesives (Verified Adverse Reaction, Severe, 11/14/16) Denies hives from tape, states, "I have very thin skin and the adhesive tears my skin." Penicillin (Verified Adverse Reaction, Intermediate, NAUSEA, 11/14/16) States, "I am taking an antibiotic in the Penicillin family right now without any problem. They give me nausea medicine." Reported Meds & Prescriptions Reported Meds & Active Scripts Active Trazodone (Trazodone HCl) 50 Mg Tab 50 Mg PO HS Zantac 75 (Ranitidine HCl) 75 Mg Tab 75 Mg PO DAILY Take 30 to 60 minutes before eating food or drinking beverages that cause heartburn. Coreg (Carvedilol) 3.125 Mg Tab 3.125 Mg PO Q12HR Walker/Adult/Folding (Device) 1 Mis Mis 1 Ea .ROUTE DIRECTED Amlodipine (Amlodipine Besylate) 5 Mg Tab 5 Mg PO DAILY Dulcolax Supp (Bisacodyl) 10 Mg Supp 10 Mg RECTAL DAILY PRN Vitamin D3 (Cholecalciferol) 2,000 Unit Chew 2,000 Units CHEW DAILY Plavix (Clopidogrel Bisulfate) 75 Mg Tab 75 Mg PO DAILY Lasix (Furosemide) 20 Mg Tab 20 Mg PO DAILY Miralax Powder (Polyethylene Glycol 3350 Powder) 17 Gm Powd 17 Gm PO DAILY Mix and dissolve one measuring cap-ful (17 grams) in water or juice. Zofran (Ondansetron HCl) 4 Mg Tab 4 Mg PO Q8HR PRN Phoslo (Calcium Acetate (Phosphate Binder)) 667 Mg Cap 667 Mg PO TID Reported Polly-Colace (Sennosides-Docusate Sodium) 8.6-50 Mg Tab 2 Tab PO BID PRN Lovastatin 40 Mg Tab 40 Mg PO DAILY Levothyroxine (Levothyroxine Sodium) 112 Mcg Tab 112 Mcg PO DAILY Atrovent HFA 12.9 GM Inh (Ipratropium Stringer) 17 Mcg/Act Aer 2 Puff INH Q6HR PRN Nepro (Nutritional Supplements) 1 Liq Liq 1 Can PO DAILY Xalatan Opth Drops (Latanoprost) 0.005% Drops 1 Drop EACH EYE HS Nephro-Donald (B-Complex W/ C & Folic Acid) 1 Tab 1 Tab PO DAILY Aspirin 81 (Aspirin) 81 Mg Tabdr 81 Mg PO DAILY Ipratropium Nasal Unknown Strength [place] Unknown Dose Nephro-Donald Rx (Vitamin B Cmplx/Vit C/Folic AC) Unknown Strength Tab Unknown Dose PO Review of Systems ROS Limitations: Poor Historian Physical Exam Narrative GENERAL: Frail elderly female SKIN: 7 x 5 cm necrotic ulcer on the posterior distal lower extremity. Superficial ulceration on the left lower extremity. 2 large skin tears along the left knee which were secured by Steri-Strips. 2 cm skin flap involving the right elbow. HEAD: Atraumatic. Normocephalic. EYES: Pupils equal and round. No injection or drainage. ENT: Moist mucous membranes NECK: Trachea midline. CARDIOVASCULAR: Regular rate and rhythm. No murmur appreciated. 2+ bilateral DP pulses with normal capillary refill. RESPIRATORY: Clear to auscultation. Breath sounds equal bilaterally. GASTROINTESTINAL: Abdomen soft, non-tender, nondistended. MUSCULOSKELETAL: Severe pain with flexion at the right hip. NEUROLOGICAL: Oriented to person but not place or time. No obvious cranial nerve deficits. Moving all extremities. PSYCHIATRIC: Poor insight and judgment. Data Data Last Documented VS Vital Signs Date Time Temp Pulse Resp B/P Pulse Ox O2 Delivery O2 Flow Rate FiO2 12/15/16 06:20 80 16 157/66 94 Room Air 12/15/16 04:37 97.7 Orders Complete Blood Count With Diff (12/15/16 04:43) Comprehensive Metabolic Panel (12/15/16 04:43) Cath For Specimen (12/15/16 04:43) Urinalysis - C+S If Indicated (12/15/16 04:43) Ct Brain W/O Iv Contrast(Rout) (12/15/16 ) Ct Cerv Spine W/O Contrast (12/15/16 ) Hip, Uni(Ap&Lat) W Ap Pelvis (12/15/16 ) Urine Culture (12/15/16 05:40) Ciprofloxacin 400 Mg Premix (Cipro 400 M (12/15/16 06:30) Blood Culture (12/15/16 06:18) Lactic Acid (12/15/16 06:18) Sodium Chlorid 0.9% 500 Ml Inj (Ns 500 M (12/15/16 06:30) Haloperidol Inj (Haldol Inj) (12/15/16 06:30) Labs Laboratory Tests Test 12/15/16 12/15/16 05:32 05:40 White Blood Count 19.7 TH/MM3 Red Blood Count 2.84 MIL/MM3 Hemoglobin 8.3 GM/DL Hematocrit 26.5 % Mean Corpuscular Volume 93.2 FL Mean Corpuscular Hemoglobin 29.4 PG Mean Corpuscular Hemoglobin 31.5 % Concent Red Cell Distribution Width 17.4 % Platelet Count 509 TH/MM3 Mean Platelet Volume 6.2 FL Neutrophils (%) (Auto) 82.3 % Lymphocytes (%) (Auto) 6.9 % Monocytes (%) (Auto) 8.7 % Eosinophils (%) (Auto) 1.7 % Basophils (%) (Auto) 0.4 % Neutrophils # (Auto) 16.2 TH/MM3 Lymphocytes # (Auto) 1.3 TH/MM3 Monocytes # (Auto) 1.7 TH/MM3 Eosinophils # (Auto) 0.3 TH/MM3 Basophils # (Auto) 0.1 TH/MM3 CBC Comment DIFF FINAL Differential Comment Sodium Level 137 MEQ/L Potassium Level 3.6 MEQ/L Chloride Level 101 MEQ/L Carbon Dioxide Level 26.7 MEQ/L Anion Gap 9 MEQ/L Blood Urea Nitrogen 11 MG/DL Creatinine 2.63 MG/DL Estimat Glomerular Filtration 17 ML/MIN Rate Random Glucose 104 MG/DL Calcium Level 9.0 MG/DL Total Bilirubin 0.4 MG/DL Aspartate Amino Transf 16 U/L (AST/SGOT) Alanine Aminotransferase 10 U/L (ALT/SGPT) Alkaline Phosphatase 130 U/L Total Protein 7.7 GM/DL Albumin 2.7 GM/DL Urine Color YELLOW Urine Turbidity CLOUDY Urine pH 5.5 Urine Specific Webb 1.018 Urine Protein 30 mg/dL Urine Glucose (UA) NEG mg/dL Urine Ketones NEG mg/dL Urine Occult Blood SMALL Urine Nitrite NEG Urine Bilirubin NEG Urine Urobilinogen LESS THAN 2.0 MG/DL Urine Leukocyte Esterase LARGE Urine RBC 30 /hpf Urine WBC /hpf Urine WBC Clumps MANY Urine Squamous Epithelial 18 /hpf Cells Urine Transitional Epithelial 4 /hpf Cells Urine Renal Epithelial Cells 3 /hpf Urine Bacteria RARE /hpf Microscopic Urinalysis Comment CATH-CULTURE IND MDM Medical Decision Making Medical Screen Exam Complete: Yes Emergency Medical Condition: Yes Medical Record Reviewed: Yes (patient was admitted from November 14 to November 20 in the setting of a right femoral neck fracture having had arthroplasty to the right hip during that admission) Interpretation(s) Leukocytosis with 82% neutrophils Creatinine is 2.6 Urinalysis: infection Last 24 hours Impressions Hip and Pelvis X-Ray 12/15/16 0000 Signed Impressions: Service Date/Time: Thursday, December 15, 2016 05:00 - CONCLUSION: Intact total hip prosthesis for technique and extensive stool and osteopenia as above. Rigoberto Valencia MD Head CT 12/15/16 0000 Signed Impressions: Service Date/Time: Thursday, December 15, 2016 04:53 - CONCLUSION: Chronic and small vessel ischemic changes without any evidence for acute hemorrhage or mass effect. Rigoberto Valencia MD Cervical Spine CT 12/15/16 0000 Signed Impressions: Service Date/Time: Thursday, December 15, 2016 04:53 - CONCLUSION: Neural foramina compromise right C3-4, right C5-C6 and bilateral lateral recess compromise C5- 6. Rigoberto Valencia MD Differential Diagnosis Intracranial hemorrhage, cervical spine fracture, hip dislocation, femur fracture Narrative Course This is an 89-year-old female who has a history of dementia who presents to the emergency department having had a fall at her [facility] which was unwitnessed. She appears to have a lot of pain in her right hip may be normal postoperative pain. X-rays were obtained which were reassuring with no evidence of acute fracture and CTs were without evidence of acute injury. She was placed on a monitor and an IV was established. Labs are obtained which demonstrate a white count of 19. She has a urinary tract infection on urinalysis. She was given a dose of ciprofloxacin. She also has a necrotic ulcer on the posterior aspect of her right lower extremity which may be related to her leukocytosis. Patient will be admitted in the setting of a urinary tract infection. Diagnosis Primary Impression: Urinary tract infection Qualified Code: N30.00 - Acute cystitis without hematuria Admitting Information Admitting Physician Requests: Admit Samina Rodriguez MD Dec 15, 2016 04:48
--- NOTE | 2016-12-15 05:20 | RADRPT ---
EXAM DATE/TIME: 12/15/2016 04:53 [facility] COMPARISON: No previous studies available for comparison. INDICATIONS : Trauma, unwitnessed fall. RADIATION DOSE: 34.24 CTDIvol (mGy) MEDICAL HISTORY : Non-responsive. SURGICAL HISTORY : Non-responsive. ENCOUNTER: Initial ACUITY: 1 day PAIN SCALE: Non-responsive LOCATION: cranial TECHNIQUE: Multiple contiguous axial images were obtained of the head. Using automated exposure control and adj ustment of the mA and/or kV according to patient size, radiation dose was kept as low as reasonably a chievable to obtain optimal diagnostic quality images. FINDINGS: There is no evidence for intracranial hemorrhage, mass effect, mass lesions, or edema. The visualize d bony structures appear intact. Moderate degree of brain atrophy is seen. Moderate periventricular white matter changes are seen nonspecific mostly consistent with chronic small vessel ischemic change s. There are no signs of acute infarction for technique. Bilateral old lacunar infarctions are also seen. There is mild mucoperiosteal thickening within the ethmoid sinuses. CONCLUSION: Chronic and small vessel ischemic changes without any evidence for acute hemorrhage o r mass effect. Rigoberto Valencia MD on December 15, 2016 at 5:18 Board Certified Radiologist. This report was verified electronically.
--- NOTE | 2016-12-15 05:25 | RADRPT ---
EXAM DATE/TIME: 12/15/2016 04:53 [facility] COMPARISON: No previous studies available for comparison. INDICATIONS : Trauma, unwitnessed fall. RADIATION DOSE: 9.12 CTDIvol (mGy) MEDICAL HISTORY : Non-responsive. SURGICAL HISTORY : Non-responsive. ENCOUNTER: Initial ACUITY: 1 day PAIN SCALE: Non-responsive LOCATION: neck TECHNIQUE: Volumetric scanning of the cervical spine was performed. Multiplanar reconstructions in the sagittal, coronal and oblique axial planes were performed. Using automated exposure control and adjustment o f the mA and/or kV according to patient size, radiation dose was kept as low as reasonably achievable to obtain optimal diagnostic quality images. FINDINGS: No evidence of subluxation. No definite fracture is seen for technique. C2-C3: There is no evidence for any significant compromise to the thecal sac, or the exiting nerve roots. N o appreciable thecal sac stenosis is seen. The neural foramina and lateral recess appear patent bila terally. C3-C4: Slight degenerative changes are seen within the disc space and facets. There is slight neural foramin a compromise on the right due to asymmetrical bulging disc and hypertrophic changes. Slight bulging d isc and hypertrophic changes are seen with indentation on the thecal sac and no significant compromis e to the thecal sac. C4-C5: Moderate degenerative changes are seen within the disc space and facets. Slight bulging disc and hype rtrophic changes are seen with indentation on the thecal sac and no significant compromise to the the aleta sac or the exiting nerve roots. C5-C6: Significant degenerative changes are seen within the disc space and facets. There is slight neural fo ramina compromise on the right due to asymmetrical bulging disc and hypertrophic changes. Slight bila teral lateral recess compromise is seen due to hypertrophic changes and bulging disc. C6-C7: Significant degenerative changes are seen within the disc space and facets. Slight bulging disc and h ypertrophic changes are seen with indentation on the thecal sac and no significant compromise to the thecal sac or the exiting nerve roots. C7-T1: Slight bulging disc and hypertrophic changes are seen with indentation on the thecal sac and no signi ficant compromise to the thecal sac or the exiting nerve roots. CONCLUSION: Neural foramina compromise right C3-4, right C5-C6 and bilateral lateral recess compromise C5-6. Rigoberto Valencia MD on December 15, 2016 at 5:19 Board Certified Radiologist. This report was verified electronically.
--- NOTE | 2016-12-15 05:26 | RADRPT ---
EXAM DATE/TIME: 12/15/2016 05:00 [facility] COMPARISON: No previous studies available for comparison. INDICATIONS : Trauma, unwitnessed fall. MEDICAL HISTORY : Non-responsive. SURGICAL HISTORY : Hip replacement. ENCOUNTER: Initial ACUITY: 1 day PAIN SCORE: Non-responsive. LOCATION: Right pelvis FINDINGS: Total hip arthroplasty is in place. The femoral and acetabular components appear intact. There are no signs of loosening or fracture. Chronic atherosclerotic calcifications are seen involving the visu alized arteries. There is moderate amount of stool throughout the colon. There is diffuse osteopeniaa nd extensive stool overlaps most of the right symphysis pubis and pubic rami makes it difficult to ex clude a fracture at this site. CONCLUSION: Intact total hip prosthesis for technique and extensive stool and osteopenia as above . Rigoberto Valencia MD on December 15, 2016 at 5:24 Board Certified Radiologist. This report was verified electronically.
[2016-12-15 05:41] LABS: AUTOMATED NEUTROPHIL # 16.2 TH/MM3 (1.8-7.7); BASOPHIL # 0.1 TH/MM3 (0-0.2); BASOPHIL % 0.4 % (0.0-2.0); EOSINOPHIL # 0.3 TH/MM3 (0-0.4); EOSINOPHIL % 1.7 % (0.0-4.0); HEMATOCRIT 26.5 % (35.0-46.0); HEMO FLAGS DIFF FINAL; LYMPH % 6.9 % (9.0-44.0); LYMPHOCYTE # 1.3 TH/MM3 (1.0-4.8); MEAN CELL VOLUME 93.2 FL (80.0-100.0); MEAN CORPUSCULAR HEMOGLOBIN 29.4 PG (27.0-34.0); MEAN CORPUSCULAR HGB CONC 31.5 % (32.0-36.0); MONO % 8.7 % (0.0-8.0); NEUT % 82.3 % (16.0-70.0); PLATELET COUNT 509 TH/MM3 (150-450); RED BLOOD COUNT 2.84 MIL/MM3 (4.00-5.30); RED CELL DISTRIBUTION WIDTH 17.4 % (11.6-17.2); WHITE BLOOD COUNT 19.7 TH/MM3 (4.0-11.0)
[2016-12-15 05:59] LABS: BACTERIA, URINE RARE /hpf; BLOOD, URINE SMALL (NEG); COMMENT (UR) CATH-CULTURE IND; CULTURE IF INDICATED CATH CULTURE IND; GLUCOSE,URINE NEG (NEG); KETONE, URINE NEG (NEG); NITRITE,URINE NEG (NEG); PH, URINE 5.5 (5.0-8.5); RENAL EPITHELIAL CELLS 3 /hpf; SQUAMOUS EPITHELIAL CELL URINE 18 /hpf (0-5); TRANSITIONAL EPI CELLS, URINE 4 /hpf; URINE COLOR YELLOW (YELLW/STRAW)
[2016-12-15 06:10] LABS: ALT (GPT) 10 U/L (10-53); ANION GAP 9 MEQ/L (5-15); AST (GOT) 16 U/L (15-37); BICARBONATE 26.7 MEQ/L (21.0-32.0); BLOOD UREA NITROGEN 11 MG/DL (7-18); CHLORIDE 101 MEQ/L (98-107); GLOMERULAR FILTRATION RATE 17 ML/MIN (>89); POTASSIUM 3.6 MEQ/L (3.5-5.1); SODIUM (NA) 137 MEQ/L (136-145)
[2016-12-15 06:12] LABS: ALKALINE PHOSPHATASE 130 U/L (45-117); TOTAL BILIRUBIN ADULT 0.4 MG/DL (0.2-1.0)
[2016-12-15] MEDS ORDERED: CIPROFLOXACIN 400 MG PREMIX 200 ML IV ONE (06:30)
[2016-12-15] MEDS ORDERED: HALOPERIDOL LACTATE 5 MG/ML AMP IV PUSH ONE (06:30)
[2016-12-15] MEDS ORDERED: SODIUM CHLORID 0.9% 500 ML INJ 500 ML IV ONE (06:30)
--- NOTE | 2016-12-15 07:13 | HHI.HP ---
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 Unclear per report how long patient was down for. Patient severely demented at baseline in addition to current altered mental status and unable to provide history. 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 Reported Medications Reported Meds & Active Scripts Active Trazodone (Trazodone HCl) 50 Mg Tab 50 Mg PO HS Zantac 75 (Ranitidine HCl) 75 Mg Tab 75 Mg PO DAILY Take 30 to 60 minutes before eating food or drinking beverages that cause heartburn. Coreg (Carvedilol) 3.125 Mg Tab 3.125 Mg PO Q12HR Walker/Adult/Folding (Device) 1 Mis Mis 1 Ea .ROUTE DIRECTED Amlodipine (Amlodipine Besylate) 5 Mg Tab 5 Mg PO DAILY Dulcolax Supp (Bisacodyl) 10 Mg Supp 10 Mg RECTAL DAILY PRN Vitamin D3 (Cholecalciferol) 2,000 Unit Chew 2,000 Units CHEW DAILY Plavix (Clopidogrel Bisulfate) 75 Mg Tab 75 Mg PO DAILY Lasix (Furosemide) 20 Mg Tab 20 Mg PO DAILY Miralax Powder (Polyethylene Glycol 3350 Powder) 17 Gm Powd 17 Gm PO DAILY Mix and dissolve one measuring cap-ful (17 grams) in water or juice. Zofran (Ondansetron HCl) 4 Mg Tab 4 Mg PO Q8HR PRN Phoslo (Calcium Acetate (Phosphate Binder)) 667 Mg Cap 667 Mg PO TID Reported Polly-Colace (Sennosides-Docusate Sodium) 8.6-50 Mg Tab 2 Tab PO BID PRN Lovastatin 40 Mg Tab 40 Mg PO DAILY Levothyroxine (Levothyroxine Sodium) 112 Mcg Tab 112 Mcg PO DAILY Atrovent HFA 12.9 GM Inh (Ipratropium [place]) 17 Mcg/Act Aer 2 Puff INH Q6HR PRN Nepro (Nutritional Supplements) 1 Liq Liq 1 Can PO DAILY Xalatan Opth Drops (Latanoprost) 0.005% Drops 1 Drop EACH EYE HS Nephro-Donald (B-Complex W/ C & Folic Acid) 1 Tab 1 Tab PO DAILY Aspirin 81 (Aspirin) 81 Mg Tabdr 81 Mg PO DAILY Ipratropium Nasal Unknown Strength [place] Unknown Dose Nephro-Donald Rx (Vitamin B Cmplx/Vit C/Folic AC) Unknown Strength Tab Unknown Dose PO (Kade Tyler MD R1) Allergies: Coded Allergies: [place] (Verified Allergy, Severe, Confusion, 12/15/16) violent behavior Dilaudid (Verified Allergy, Unknown, confusion, 12/15/16) violent behavior Morphine (Verified Allergy, Unknown, confusion, 12/15/16) violent behavior Adhesives (Verified Adverse Reaction, Severe, 11/14/16) Denies hives from tape, states, "I have very thin skin and the adhesive tears my skin." Penicillin (Verified Adverse Reaction, Intermediate, NAUSEA, 11/14/16) States, "I am taking an antibiotic in the Penicillin family right now without any problem. They give me nausea medicine." Active Ordered Medications Current Medications Medications (Trade) Dose Ordered Sig/[place]avares Route Start Time Stop Time Status Last Admin (NS Flush) 2 ml UNSCH PRN IV FLUSH 12/15/16 07:45 (NS Flush) 2 ml BID IV FLUSH 12/15/16 09:00 Enoxaparin Sodium 30 mg 30 mg Q24H SQ 12/15/16 09:00 (Levaquin 500 Mg Premix Inj) 100 ml @ 100 mls/hr Q48H IV 12/16/16 08:00 (Norvasc) 5 mg DAILY PO 12/15/16 09:00 (Ecotrin Ec) 81 mg DAILY PO 12/15/16 09:00 (Dulcolax Supp) 10 mg DAILY PRN RECTAL 12/15/16 08:00 (Phoslo) 667 mg TID PO 12/15/16 09:00 (Coreg) 3.125 mg Q12HR PO 12/15/16 09:00 (Plavix) 75 mg DAILY PO 12/15/16 09:00 (Lasix) 20 mg DAILY PO 12/15/16 09:00 (Xalatan 0.005% Opth Soln) 1 drop HS EACH EYE 12/15/16 21:00 (Synthroid) 112 mcg DAILY@06 PO 12/15/16 08:09 (Pravachol) 40 mg DAILY PO 12/15/16 09:00 (Miralax) 17 gm DAILY PO 12/15/16 09:00 (Polly-Colace) 2 tab BID PRN PO 12/15/16 08:00 (Desyrel) 50 mg HS PO 12/15/16 21:00 (Nephrocaps) 1 cap DAILY PO 12/15/16 09:00 (Vitamin D3) 2,000 units DAILY PO 12/15/16 09:00 Non-Formulary Medication 1 can DAILY PO 12/15/16 09:00 (Zofran Odt) 4 mg Q8HR PRN PO 12/15/16 08:00 (Pepcid) 10 mg DAILY PO 12/15/16 09:00 Family History Non-contributory Social History Marrital Status: Living Situation: Long-term care resident at [facility] Tobacco: None Alcohol: None Illicit drug use: none (Kade Tyler MD R1) Physical Exam Vital Signs Vital Signs Date Time Temp Pulse Resp B/P Pulse Ox O2 Delivery O2 Flow Rate FiO2 12/15/16 06:20 80 16 157/66 94 Room Air 12/15/16 05:48 Room Air 12/15/16 04:37 97.7 88 20 157/66 98 Physical Exam GENERAL: Thin-appearing elderly white female appearing confused/altered SKIN: Stage 2-3 sacral decubitus ulcer (dressing changed 12/14, sees wound care), stage 2-3 pressure ulcer R posterior calf, healing. Skin abrasion over L anterior warren. Several bruises over shins and forearms in various stages of healing. HEAD: NC/AT EYES: PERRL. EOMI. No conjunctival injection or drainage. ENT: MMM, OP without erythema, tonsillar swelling, or exudate. Tongue with small laceration and some dried blood. NECK: Supple, no lymphadenopathy. No JVD. CARDIOVASCULAR: Normal rate, irregularly irregular rhythm. Normal S1/S2. No MRG RESPIRATORY: Mild crackles bilaterally lower lobes, right lower field slightly worse than left lower field GASTROINTESTINAL: Abdomen soft, non-distended, non-tender. No hepato- splenomegaly or palpable masses. MUSCULOSKELETAL: Extremities without clubbing, cyanosis, or edema. NEUROLOGICAL: Awake and alert. Cranial nerves II through XII grossly intact. Moves all extremities without difficulty. Normal speech. Laboratory Laboratory Tests Test 12/15/16 12/15/16 05:32 05:40 White Blood Count 19.7 Red Blood Count 2.84 Hemoglobin 8.3 Hematocrit 26.5 Mean Corpuscular Volume 93.2 Mean Corpuscular Hemoglobin 29.4 Mean Corpuscular Hemoglobin 31.5 Concent Red Cell Distribution Width 17.4 Platelet Count 509 Mean Platelet Volume 6.2 Neutrophils (%) (Auto) 82.3 Lymphocytes (%) (Auto) 6.9 Monocytes (%) (Auto) 8.7 Eosinophils (%) (Auto) 1.7 Basophils (%) (Auto) 0.4 Neutrophils # (Auto) 16.2 Lymphocytes # (Auto) 1.3 Monocytes # (Auto) 1.7 Eosinophils # (Auto) 0.3 Basophils # (Auto) 0.1 CBC Comment DIFF FINAL Differential Comment Sodium Level 137 Potassium Level 3.6 Chloride Level 101 Carbon Dioxide Level 26.7 Anion Gap 9 Blood Urea Nitrogen 11 Creatinine 2.63 Estimat Glomerular Filtration 17 Rate Random Glucose 104 Calcium Level 9.0 Total Bilirubin 0.4 Aspartate Amino Transf 16 (AST/SGOT) Alanine Aminotransferase 10 (ALT/SGPT) Alkaline Phosphatase 130 Total Protein 7.7 Albumin 2.7 Urine Color YELLOW Urine Turbidity CLOUDY Urine pH 5.5 Urine Specific [place] 1.018 Urine Protein 30 Urine Glucose (UA) NEG Urine Ketones NEG Urine Occult Blood SMALL Urine Nitrite NEG Urine Bilirubin NEG Urine Urobilinogen LESS THAN 2.0 Urine Leukocyte Esterase LARGE Urine RBC 30 Urine WBC Urine WBC Clumps MANY Urine Squamous Epithelial 18 Cells Urine Transitional Epithelial 4 Cells Urine Renal Epithelial Cells 3 Urine Bacteria RARE Microscopic Urinalysis Comment CATH-CULTURE IND Date/Time Procedure Status Source Growth 12/15/16 05:40 Urine Culture Received Urine Catheterized Urine Pending (Kade Tyler MD R1) Result Diagram: 12/15/16 0532 12/15/16 0532 Imaging Last Impressions Hip and Pelvis X-Ray 12/15/16 0000 Signed Impressions: Service Date/Time: Thursday, December 15, 2016 05:00 - CONCLUSION: Intact total hip prosthesis for technique and extensive stool and osteopenia as above. Rigoberto Valencia MD Head CT 12/15/16 0000 Signed Impressions: Service Date/Time: Thursday, December 15, 2016 04:53 - CONCLUSION: Chronic and small vessel ischemic changes without any evidence for acute hemorrhage or mass effect. Rigoberto Valencia MD Chest X-Ray 12/15/16 0000 Signed Impressions: Service Date/Time: Thursday, December 15, 2016 07:41 - CONCLUSION: 1. No change in medial left lower lobe consolidation versus atelectasis and small left pleural effusion. 2. Mild bilateral interstitial opacity indicating possible mild pulmonary edema. Sony Erickson MD Cervical Spine CT 12/15/16 0000 Signed Impressions: Service Date/Time: Thursday, December 15, 2016 04:53 - CONCLUSION: Neural foramina compromise right C3-4, right C5-C6 and bilateral lateral recess compromise C5- 6. 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 I agree with assessment and management as documented and discussed with me. Domenica Richey is an 89yo lady with multiple medical problems admitted after being found on floor for unknown amount of time. She has dementia and is also sedated from ativan and haldol for agitation while in ED, so she is unable to provide any history. Fam Hx: unknown. The patient has been seen and examined. The chart and all resident notes have been reviewed. I agree that inpatient care is appropriate and that a two midnight stay is expected for the reasons documented in the resident history and physical. I have discussed this with the resident and certify the resident s order for inpatient admission. (Helen aL MD) Problem List: (1) Altered mental status Status: Acute Plan: In setting of elevated WBC and + bacteria and leuk esterase in catheterized urine sample, likely etiology is UTI. Could be secondary to uncontrolled pain (recent hip replacement). Differential also includes CHF, [place], pneumonia. Does not meet sepsis criteria. Initial EKG without tachycardia, ST-T wave changes; AFib with normal HR Initial troponin mildly elevated at 0.06, likely due to renal disease - Trend troponin, EKG - CXR to r/o pneumonia, CHF worsening - Echo for EF assessment of CHF - Pain: Acetaminophen IV 1 g every 6 hours, consider adding low-dose opiates if continues to appear agitated - Treat UTI with levaquin dosed renally (500 mg Q48H); s/p 400 mg Cipro in ER - Delirium prevention: sunlight, no sleeping during the day, hold sedating medications (2) Urinary tract infection Status: Acute Plan: UA with leuk esterase and bacteria (catheterized sample) - Levaquin dosed renally (500 mg Q48H); s/p Cipro 400 mg IV in ER - F/u Urine Cx (3) CHF, chronic Status: Chronic Plan: Slight crackles on exam but maintaining O2 saturations, not tachypneic, unlikely to be current exacerbation - Continue home beta rock - Consider adding spironolactone; given renal disease likely would not advise adding ARLETH/ARB - F/u echo - Caution on fluids (4) ESRD (end stage renal disease) on dialysis Status: Chronic Plan: Cr currently 2.63, improved from previous levels of 3-5 - Consult nephrology for continued dialysis while in hospital (TTS schedule) - Continue phosphate binder, Ca, vitamin D (5) Sacral decubitus ulcer Status: Chronic Plan: Stable from previous descriptions in outpatient setting, do not appear acutely infected on exam. - Consult wound nurse for recommendations - Rotate patient every 2 hours (6) Essential hypertension Status: Chronic Plan: BP stable to low - Continue home Coreg, hold for BP < 90/50 (7) Coronary artery disease Status: Chronic Plan: S/p CABG - Continue home ASA, Plavix, Statin (8) History of right hip hemiarthroplasty Status: Chronic Plan: No abnormalities on X-ray - Pain as above (9) Paroxysmal atrial fibrillation Status: Chronic Plan: Had been on coumadin previously but due to recent bleed requiring hospital visit this was discontinued. - Continue rate control with beta rock - Continue ASA/Plavix (10) Dementia Status: Chronic Plan: Currently with altered mental status - Continue home trazodone as needed for sleep (11) FEN/PPX Status: Acute Plan: Fluids: use with caution Elecs: Monitor and replete PRN Nutrition: Diet regular basic, Nepro supplementation DVT: Lovenox [address] La, Dr. Russell, Dr. Julio (Kade Tyler MD R1) Physician Certification 2 Midnight Certification Type: Admission for Inpatient Services Order for Inpatient Services The services are ordered in accordance with Medicare regulations or non- Medicare payer requirements, as applicable. In the case of services not specified as inpatient-only, they are appropriately provided as inpatient services in accordance with the 2-midnight benchmark. Estimated LOS (days): 2 2 days is the estimated time the patient will need to remain in the hospital, assuming treatment plan goals are met and no additional complications. 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
[2016-12-15] MEDS ORDERED: LORazepam 2 MG/ML VIAL IV PUSH ONE (07:15)
[2016-12-15] MEDS ORDERED: ONDANSETRON ODT 4 MG TAB PO PRN (08:00)
[2016-12-15] MEDS ORDERED: IPRATROPIUM BROMIDE 17 MCG/ACT 12.9 GM INHALER INH PRN (08:00)
[2016-12-15] MEDS ORDERED: BISACODYL 10 MG SUPP RECTAL PRN (08:00)
--- NOTE | 2016-12-15 08:05 | RADRPT ---
EXAM DATE/TIME: 12/15/2016 07:41 [facility] COMPARISON: CHEST SINGLE AP, November 20, 2016, 8:50. INDICATIONS : Short of breath, evaluate for congestive heart failure MEDICAL HISTORY : Cardiovascular disease. Sepsis. SURGICAL HISTORY : CABG. ENCOUNTER: Initial ACUITY: 1 day PAIN SCORE: Non-responsive. LOCATION: Bilateral chest FINDINGS: Single AP view of the chest. Median sternotomy wires. Right-sided subclavian, axillary, and brachial stent in place. Left lower lobe consolidation versus atelectasis and small left pleural effusion unch anged. Mild bilateral interstitial opacity more prominent than on the comparison study. Cardiomediast inal silhouette unchanged. CONCLUSION: 1. No change in medial left lower lobe consolidation versus atelectasis and small left pleural effusi on. 2. Mild bilateral interstitial opacity indicating possible mild pulmonary edema. Sony Erickson MD on December 15, 2016 at 8:01 Board Certified Radiologist. This report was verified electronically.
[2016-12-15] MEDS: LEVOTHYROXINE SODIUM 112 MCG TAB PO SCH (08:09)
[2016-12-15] MEDS: SODIUM CHLORIDE 0.9% FLUSH 10 ML FLUSH IV FLUSH SCH ×2 (08:18→21:53)
[2016-12-15] MEDS ORDERED: RESP: IPRATROPIUM 0.5 MG/2.5 ML NEB NEB PRN (08:30)
[2016-12-15] MEDS: FUROSEMIDE 20 MG TAB PO SCH (09:00)
[2016-12-15] MEDS: NUTRITIONAL SUPPLEMENTS PO SCH (09:00)
[2016-12-15] MEDS: amLODIPine BESYLATE 5 MG TAB PO SCH (09:00)
[2016-12-15] MEDS: ASPIRIN EC 81 MG TABEC PO SCH (09:00)
[2016-12-15] MEDS: VITAMIN B CMPLX/VITC/FOLIC AC CAP PO SCH (09:00)
[2016-12-15] MEDS: FAMOTIDINE 20 MG TAB PO SCH (09:00)
[2016-12-15] MEDS: CARVEDILOL 3.125 MG TAB PO SCH ×2 (09:00→21:54)
[2016-12-15] MEDS: POLYETHYLENE GLYCOL 17 GM PKG PO SCH (09:00)
[2016-12-15] MEDS: PRAVASTATIN SOD 40 MG TAB PO SCH (09:00)
[2016-12-15] MEDS: CHOLECALCIFEROL (VIT D3) 1000 UNIT TAB PO SCH (09:00)
[2016-12-15] MEDS: CLOPIDOGREL 75 MG TAB PO SCH (09:00)
[2016-12-15] MEDS: CALCIUM ACETATE 667 MG CAP PO SCH ×3 (09:00→18:00)
[2016-12-15] MEDS: ENOXAPARIN SODIUM 30 MG/0.3 ML SYRINGE SQ SCH (09:00)
--- NOTE | 2016-12-15 13:31 | EKG ---
Date Performed: 12/15/2016 Time Performed: 08:10:46 PTAGE: 89 years EKG: ATRIAL FIBRILLATION INCOMPLETE RIGHT BUNDLE BRANCH BLOCK POSSIBLE RIGHT VENTRICULAR HYPERTR OPHY SEPTAL MYOCARDIAL INFARCTION ABNORMAL ECG PREVIOUS TRACING : 11/18/2016 13.19 DOCTOR: Chip Torres Interpretating Date/Time 12/15/2016 13:31:03
--- NOTE | 2016-12-15 14:41 | ECHLIM ---
Study Study Date:12/15/2016 STUDY CONCLUSIONS SUMMARY LEFT VENTRICLE: The cavity size was normal. Wall thickness was normal. Systolic function was normal. The estimated ejection fraction was in the range of 55% to 65%. Wall motion was normal; there were no regional wall motion abnormalities. If LV function is below 40, please consider prescribing an ACEI or ARB or document rationale for non-use. PROCEDURE DATA STUDY STATUS: Elective. Procedure: Transthoracic echocardiography. Image quality was good. Scanning was performed from the parasternal, apical, and subcostal acoustic windows. Study completion: The patient tolerated the procedure well. Transthoracic echocardiography. M-mode, complete 2D, complete spectral Doppler, and color Doppler. Height: Height: 63in. Weight: Weight: 109.8lb. Body mass index: BMI: 19.5kg/m^2. Body surface area: BSA: 1.5m^2. Patient status: Inpatient. CARDIAC ANATOMY LEFT VENTRICLE: The cavity size was normal. Wall thickness was normal. Systolic function was normal. The estimated ejection fraction was in the range of 55% to 65%. Wall motion was normal; there were no regional wall motion abnormalities. AORTIC VALVE: Trileaflet; normal thickness leaflets. Doppler: Transvalvular velocity was within the normal range. There was no stenosis. No regurgitation. AORTA: Aortic root: The aortic root was normal in size. MITRAL VALVE: Structurally normal valve. Doppler: Transvalvular velocity was within the normal range. There was no evidence for stenosis. No regurgitation. LEFT ATRIUM: The atrium was normal in size. RIGHT VENTRICLE: The cavity size was normal. Wall thickness was normal. PULMONIC VALVE: Doppler: Transvalvular velocity was within the normal range. There was no evidence for stenosis. No regurgitation. TRICUSPID VALVE: Structurally normal valve. Doppler: Transvalvular velocity was within the normal range. No regurgitation. PULMONARY ARTERY: The main pulmonary artery was normal-sized. Systolic pressure was within the normal range. RIGHT ATRIUM: The atrium was normal in size. PERICARDIUM: There was no pericardial effusion. SYSTEMIC VEINS: Inferior vena cava: The vessel was normal in size. Patient weight: 109.8lb _Ejection fraction:_ 65-75% _Fractional shortening:_ 32% up to 5Kg 5-11.5Kg 11.6-22.9Kg 23-45Kg 45-57Kg Aortic Root 7-13 <17 13-22 17-27 17-27 LA diam 6-13 <23 24-38 33-47 37-40 RVID 10-17 7-15 7-15 7-18 8-17 LVIDd 12-22 <32 24-38 33-47 37-40 LVPW 2-4 3-6 5-7 6-8 7-8 IVS 2-4 3-6 5-7 6-8 7-8 BASIC MEASUREMENTS ADULT NORMAL Left ventricle LV internal dimension, ED, chordal level, *38 mm 43-52 PLAX LV internal dimension, ES, chordal level, 25.6 mm 23-38 PLAX Fractional shortening, chordal level, PLAX 33 % >29 LV posterior wall thickness, ED 11 mm IVS/LVPW ratio, ED 1.02 <1.3 Ventricular septum Septal thickness, ED 11.2 mm LEGEND: Mean values are shown as u=mean value. Asterisk (*) bernal values outside specified normal range. Prepared and signed by Thierry Barr [id number]
[2016-12-15] MEDS: ACETAMINOPHEN 1000 MG/100 ML VIAL IV SCH ×2 (15:58→21:53)
--- NOTE | 2016-12-15 16:47 | PD.CONS ---
HPI Service Nephrology Consult Requested By Dr. Tyler Reason for Consult Known ESRD on HD Primary Care Physician Non-Staff History of Present Illness The patient is am 89 yo [place] female who is known to our services for ESRD on HD. She was brought to this facility as she was found on the floor of her NH. She is altered at the present, so no other information can be gathered. She has multiple abrasions on her LEs and her mouth is covered in blood. Uncertain if she bit her tongue. Imaging and labs reviewed. Appears she may have a UTI. Last HD yesterday---on TTS schedule. (Gaviota Nicholson) Review of Systems ROS Limitations: Altered Mental Status (Gaviota Nicholson) Past Family Social History Allergies: Coded Allergies: [place] (Verified Allergy, Severe, Confusion, 12/15/16) violent behavior Dilaudid (Verified Allergy, Unknown, confusion, 12/15/16) violent behavior Morphine (Verified Allergy, Unknown, confusion, 12/15/16) violent behavior Adhesives (Verified Adverse Reaction, Severe, 11/14/16) Denies hives from tape, states, "I have very thin skin and the adhesive tears my skin." Penicillin (Verified Adverse Reaction, Intermediate, NAUSEA, 11/14/16) States, "I am taking an antibiotic in the Penicillin family right now without any problem. 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 Coreg (Carvedilol) 3.125 Mg Tab 3.125 Mg PO Q12HR Walker/Adult/Folding (Device) 1 Mis Mis 1 Ea .ROUTE DIRECTED Amlodipine (Amlodipine Besylate) 5 Mg Tab 5 Mg PO DAILY Dulcolax Supp (Bisacodyl) 10 Mg Supp 10 Mg RECTAL DAILY PRN Vitamin D3 (Cholecalciferol) 2,000 Unit Chew 2,000 Units CHEW DAILY Plavix (Clopidogrel Bisulfate) 75 Mg Tab 75 Mg PO DAILY Lasix (Furosemide) 20 Mg Tab 20 Mg PO DAILY Miralax Powder (Polyethylene Glycol 3350 Powder) 17 Gm Powd 17 Gm PO DAILY Mix and dissolve one measuring cap-ful (17 grams) in water or juice. Zofran (Ondansetron HCl) 4 Mg Tab 4 Mg PO Q8HR PRN Phoslo (Calcium Acetate (Phosphate Binder)) 667 Mg Cap 667 Mg PO TID Reported Polly-Colace (Sennosides-Docusate Sodium) 8.6-50 Mg Tab 2 Tab PO BID PRN Lovastatin 40 Mg Tab 40 Mg PO DAILY Levothyroxine (Levothyroxine Sodium) 112 Mcg Tab 112 Mcg PO DAILY Atrovent HFA 12.9 GM Inh (Ipratropium Wever) 17 Mcg/Act Aer 2 Puff INH Q6HR PRN Nepro (Nutritional Supplements) 1 Liq Liq 1 Can PO DAILY Xalatan Opth Drops (Latanoprost) 0.005% Drops 1 Drop EACH EYE HS Nephro-Donald (B-Complex W/ C & Folic Acid) 1 Tab 1 Tab PO DAILY Aspirin 81 (Aspirin) 81 Mg Tabdr 81 Mg PO DAILY Ipratropium Nasal Unknown Strength [place] Unknown Dose Nephro-Donald Rx (Vitamin B Cmplx/Vit C/Folic AC) Unknown Strength Tab Unknown Dose PO Active Ordered Medications Current Medications Medications (Trade) Dose Ordered Sig/Tavares Route Start Time Stop Time Status Last Admin (NS Flush) 2 ml UNSCH PRN IV FLUSH 12/15/16 07:45 (NS Flush) 2 ml BID IV FLUSH 12/15/16 09:00 Enoxaparin Sodium 30 mg 30 mg Q24H SQ 12/15/16 09:00 (Levaquin 500 Mg Premix Inj) 100 ml @ 100 mls/hr Q48H IV 12/16/16 08:00 (Norvasc) 5 mg DAILY PO 12/15/16 09:00 (Ecotrin Ec) 81 mg DAILY PO 12/15/16 09:00 (Dulcolax Supp) 10 mg DAILY PRN RECTAL 12/15/16 08:00 (Phoslo) 667 mg TID PO 12/15/16 09:00 (Coreg) 3.125 mg Q12HR PO 12/15/16 09:00 (Plavix) 75 mg DAILY PO 12/15/16 09:00 (Lasix) 20 mg DAILY PO 12/15/16 09:00 (Xalatan 0.005% Opth Soln) 1 drop HS EACH EYE 12/15/16 21:00 (Synthroid) 112 mcg DAILY@06 PO 12/15/16 08:09 (Pravachol) 40 mg DAILY PO 12/15/16 09:00 (Miralax) 17 gm DAILY PO 12/15/16 09:00 (Polly-Colace) 2 tab BID PRN PO 12/15/16 08:00 (Desyrel) 50 mg HS PO 12/15/16 21:00 (Nephrocaps) 1 cap DAILY PO 12/15/16 09:00 (Vitamin D3) 2,000 units DAILY PO 12/15/16 09:00 Non-Formulary Medication 1 can DAILY PO 12/15/16 09:00 (Zofran Odt) 4 mg Q8HR PRN PO 12/15/16 08:00 (Pepcid) 10 mg DAILY PO 12/15/16 09:00 (Ofirmev Inj) 1,000 mg Q6H IV 12/15/16 15:00 12/15/16 15:58 (Santyl Oint) 1 applic DAILY TOPICAL 12/16/16 09:00 Family History [place] Social History Lives at [facility] No EtOH No tobacco No illicits 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 Does not open eyes when talked to SKIN: Warm and dry. HEAD: Atraumatic. Normocephalic. EYES: WNL ENT: No nasal bleeding or discharge. Mouth has dried blood present on lips NECK: Trachea midline. No JVD. CARDIOVASCULAR: Regular rate and rhythm. RESPIRATORY: No accessory muscle use. Clear to auscultation. Breath sounds equal bilaterally. GASTROINTESTINAL: Abdomen soft, non-tender, nondistended. Hepatic and splenic margins not palpable. MUSCULOSKELETAL: Extremities without clubbing, cyanosis, or edema. No obvious deformities. Multiple abrasions noted on her LEs NEUROLOGICAL: Altered PSYCHIATRIC: Altered Laboratory Laboratory Tests Test 12/15/16 12/15/16 12/15/16 05:32 05:40 07:25 White Blood Count 19.7 Red Blood Count 2.84 Hemoglobin 8.3 Hematocrit 26.5 Mean Corpuscular Volume 93.2 Mean Corpuscular Hemoglobin 29.4 Mean Corpuscular Hemoglobin 31.5 Concent Red Cell Distribution Width 17.4 Platelet Count 509 Mean Platelet Volume 6.2 Neutrophils (%) (Auto) 82.3 Lymphocytes (%) (Auto) 6.9 Monocytes (%) (Auto) 8.7 Eosinophils (%) (Auto) 1.7 Basophils (%) (Auto) 0.4 Neutrophils # (Auto) 16.2 Lymphocytes # (Auto) 1.3 Monocytes # (Auto) 1.7 Eosinophils # (Auto) 0.3 Basophils # (Auto) 0.1 CBC Comment DIFF FINAL Differential Comment Sodium Level 137 Potassium Level 3.6 Chloride Level 101 Carbon Dioxide Level 26.7 Anion Gap 9 Blood Urea Nitrogen 11 Creatinine 2.63 Estimat Glomerular Filtration 17 Rate Random Glucose 104 Calcium Level 9.0 Total Bilirubin 0.4 Aspartate Amino Transf 16 (AST/SGOT) Alanine Aminotransferase 10 (ALT/SGPT) Alkaline Phosphatase 130 Troponin I 0.06 Total Protein 7.7 Albumin 2.7 Urine Color YELLOW Urine Turbidity CLOUDY Urine pH 5.5 Urine Specific [place] 1.018 Urine Protein 30 Urine Glucose (UA) NEG Urine Ketones NEG Urine Occult Blood SMALL Urine Nitrite NEG Urine Bilirubin NEG Urine Urobilinogen LESS THAN 2.0 Urine Leukocyte Esterase LARGE Urine RBC 30 Urine WBC Urine WBC Clumps MANY Urine Squamous Epithelial 18 Cells Urine Transitional Epithelial 4 Cells Urine Renal Epithelial Cells 3 Urine Bacteria RARE Microscopic Urinalysis Comment CATH-CULTURE IND Lactic Acid Level 2.0 Date/Time Procedure Status Source Growth 12/15/16 09:10 Aerobic Blood Culture Received Blood Peripheral Pending 12/15/16 09:10 Anaerobic Blood Culture Received Blood Peripheral Pending 12/15/16 05:40 Urine Culture Received Urine Catheterized Urine Pending (Gaviota Nicholson) Result Diagram: 12/15/16 0532 12/15/16 0532 Imaging Last Impressions Hip and Pelvis X-Ray 12/15/16 0000 Signed Impressions: Service Date/Time: Thursday, December 15, 2016 05:00 - CONCLUSION: Intact total hip prosthesis for technique and extensive stool and osteopenia as above. Rigoberto Valencia MD Head CT 12/15/16 0000 Signed Impressions: Service Date/Time: Thursday, December 15, 2016 04:53 - CONCLUSION: Chronic and small vessel ischemic changes without any evidence for acute hemorrhage or mass effect. Rigoberto Valencia MD Chest X-Ray 12/15/16 0000 Signed Impressions: Service Date/Time: Thursday, December 15, 2016 07:41 - CONCLUSION: 1. No change in medial left lower lobe consolidation versus atelectasis and small left pleural effusion. 2. Mild bilateral interstitial opacity indicating possible mild pulmonary edema. Sony Erickson MD Cervical Spine CT 12/15/16 0000 Signed Impressions: Service Date/Time: Thursday, December 15, 2016 04:53 - CONCLUSION: Neural foramina compromise right C3-4, right C5-C6 and bilateral lateral recess compromise C5- 6. Rigoberto Valencia MD (Gaviota Nicholson) Assessment and Plan Problem List: (1) ESRD (end stage renal disease) on dialysis Plan: The patient's typical HD days are TTS. We will plan on regular HD tomorrow. Given her current AMS and declining status, will have to have conversation with the family again regarding the patient's wishes. She has had multiple admissions recently and has been progressively declining physically and mentally. If her status does not improve by tomorrow, we would strongly suggest that hospice is involved with her care given her significantly impaired quality of life. Medications should be adjusted for the patient's ESRD. Avoid gadolinium (2) Altered mental status Plan: w/u in progress Advancing dementia? Delirium? UTI? (3) Urinary tract infection Plan: Abx deferred to primary (4) Failure to thrive in adult (Gaviota Nicholson) Assessment and Plan The exam, history, and the medical decision-making described in the above note were completed with the assistance of the PA-Wendy. I reviewed and agree with the findings presented. I attest that I had a [id number] encounter with the patient on the same day, and personally performed and documented my assessment and findings in the medical record. (Pio Morton MD) Problem Qualifiers (1) Altered mental status: Qualified Code: R41.0 - Delirium (2) Urinary tract infection: Qualified Code: N30.00 - Acute cystitis without hematuria Gaviota Nicholson Dec 15, 2016 16:47 Pio Morton MD Dec 16, 2016 16:56
[2016-12-15] MEDS ORDERED: SODIUM CHLOR 0.9% 1000 ML INJ 1,000 ML IV PRN ×2 (16:49)
[2016-12-15] MEDS ORDERED: HEPARIN SODIUM - IV 10,000 UNITS/10 ML VIAL PRN (17:00)
[2016-12-15] MEDS ORDERED: GENTAMICIN SULFATE (DIALYSIS USE ONLY) 20 MG/2 ML VIAL IV PRN (17:00)
[2016-12-15] MEDS ORDERED: SODIUM CHLORIDE 0.9% FLUSH 10 ML FLUSH IV FLUSH PRN (17:00)
[2016-12-15] MEDS ORDERED: cloNIDine HCL 0.1 MG TAB PO PRN (17:00)
[2016-12-15] MEDS ORDERED: diphenhydrAMINE HCL 25 MG CAP PO PRN (17:00)
[2016-12-15] MEDS ORDERED: ONDANSETRON HCL 4 MG/2 ML VIAL IV PRN (17:00)
[2016-12-15] MEDS ORDERED: HEPARIN SODIUM - IV 10,000 UNITS/10 ML VIAL IVF PRN (17:00)
[2016-12-15] MEDS ORDERED: MANNITOL 12.5 GM/50 ML VIAL IV PRN (17:00)
[2016-12-15] MEDS ORDERED: NITROGLYCERIN 0.4 MG SL 25 TABS/BTL SL PRN (17:00)
[2016-12-15] MEDS: LATANOPROST 0.005% OPHT SOLN 2.5 ML BTL EACH EYE SCH (21:00)
[2016-12-15] MEDS: traZODone HCL 50 MG TAB PO SCH (21:54)
--- NOTE | 2016-12-15 22:01 | MG ---
cc: DONNA COLE MD Lab No: [id number] Date: 12/15/16 Age: 89 Sex: F Race: DATE OF [address] Tyler. With photic stimulation awake, drowsy, asleep study. Not following commands. Given Ativan 1 mg at 7:38 in the morning and Haldol [address] shows small vessel disease, admitted from the [facility], falling, right hip pain, history of atrial fibrillation, hypertension, hyperlipidemia, diabetes, dialysis, right arm weakness. MEDICATIONS Ativan Haldol Cipro Norvasc, Coreg. DESCRIPTION OF RECORD The patient has overall slowing predominately 2-3 Hz and a lot of artifact snoring, leg movements. EKG is artifactual as well, but overall 2-3, sometimes 4 Hz rhythm is seen. No appreciable epileptic activity. Photic stimulation - no driving response. IMPRESSION Moderate slowing of the EEG may be secondary to sedation, medication effect or encephalopathy. No gross epileptic activity is seen in this one recording. Clinical correlation. Donna Cole MD DF/ /7:22 PM /9:56 PM
[2016-12-16] VITALS (8 sets, daily range): BP systolic 92–143; BP diastolic 50–85; PULSE 74–109; RESP 16–18; TEMP 97–97.6; O2SAT 91–97
[2016-12-16] MEDS: ACETAMINOPHEN 1000 MG/100 ML VIAL IV SCH ×5 (03:02→21:58)
[2016-12-16 08:10] LABS: AUTOMATED NEUTROPHIL # 11.4 TH/MM3 (1.8-7.7); BASOPHIL # 0.1 TH/MM3 (0-0.2); BASOPHIL % 0.4 % (0.0-2.0); EOSINOPHIL # 0.3 TH/MM3 (0-0.4); EOSINOPHIL % 2.4 % (0.0-4.0); HEMATOCRIT 23.1 % (35.0-46.0); HEMO FLAGS DIFF FINAL; LYMPH % 8.4 % (9.0-44.0); LYMPHOCYTE # 1.2 TH/MM3 (1.0-4.8); MEAN CELL VOLUME 92.6 FL (80.0-100.0); MEAN CORPUSCULAR HEMOGLOBIN 29.1 PG (27.0-34.0); MEAN CORPUSCULAR HGB CONC 31.4 % (32.0-36.0); MONO % 8.7 % (0.0-8.0); NEUT % 80.1 % (16.0-70.0); PLATELET COUNT 464 TH/MM3 (150-450); RED CELL DISTRIBUTION WIDTH 17.7 % (11.6-17.2); WHITE BLOOD COUNT 14.2 TH/MM3 (4.0-11.0)
[2016-12-16 08:34] LABS: BICARBONATE 26.6 MEQ/L (21.0-32.0)
[2016-12-16] MEDS: POLYETHYLENE GLYCOL 17 GM PKG PO SCH ×2 (09:00→09:36)
[2016-12-16] MEDS: LEVOFLOXACIN 500 MG PREMIX INJ 100 ML IV SCH (09:34)
[2016-12-16] MEDS: ASPIRIN EC 81 MG TABEC PO SCH ×2 (09:35→14:41)
[2016-12-16] MEDS: CHOLECALCIFEROL (VIT D3) 1000 UNIT TAB PO SCH ×2 (09:35→14:40)
[2016-12-16] MEDS: ENOXAPARIN SODIUM 30 MG/0.3 ML SYRINGE SQ SCH (09:35)
[2016-12-16] MEDS: PRAVASTATIN SOD 40 MG TAB PO SCH ×2 (09:35→14:40)
[2016-12-16] MEDS: CALCIUM ACETATE 667 MG CAP PO SCH ×4 (09:35→18:05)
[2016-12-16] MEDS: VITAMIN B CMPLX/VITC/FOLIC AC CAP PO SCH ×2 (09:35→14:39)
[2016-12-16] MEDS: amLODIPine BESYLATE 5 MG TAB PO SCH ×2 (09:36→14:40)
[2016-12-16] MEDS: CLOPIDOGREL 75 MG TAB PO SCH ×2 (09:36→14:40)
[2016-12-16] MEDS: FUROSEMIDE 20 MG TAB PO SCH ×2 (09:36→14:40)
[2016-12-16] MEDS: CARVEDILOL 3.125 MG TAB PO SCH ×3 (09:36→22:04)
[2016-12-16] MEDS: FAMOTIDINE 20 MG TAB PO SCH ×2 (09:36→14:40)
[2016-12-16] MEDS: SODIUM CHLORIDE 0.9% FLUSH 10 ML FLUSH IV FLUSH SCH ×2 (09:37→22:04)
--- NOTE | 2016-12-16 13:02 | HHI.FPPN ---
Subjective Remarks Patient sitting up in bed and eating. Patient to receive hemodialysis today per her usual schedule of Sunday, , Sunday. She is minimally verbal but does answer yes or no questions. She is not reporting significant pain this morning. Per the nurse, no concerns overnight or this morning. She appears to be getting back to her baseline cognitively. (Albaro Julio MD R2) Objective Vitals Vital Signs Date Time Temp Pulse Resp B/P Pulse Ox O2 Delivery O2 Flow Rate FiO2 12/16/16 08:00 74 12/16/16 08:00 97.6 109 18 143/85 94 12/16/16 07:59 92 21 12/16/16 04:45 97.6 102 16 92/50 93 12/16/16 00:03 97.6 78 16 92/54 94 12/15/16 20:20 97.2 89 16 122/61 95 12/15/16 20:12 62 12/15/16 16:00 97.2 79 18 102/58 97 I/O 12/15/16 12/15/16 12/15/16 12/16/16 12/16/16 12/16/16 07:00 15:00 23:00 07:00 15:00 23:00 Intake Total 0 ml 30 ml 210 ml Output Total 0 ml 0 ml Balance 0 ml 30 ml 210 ml Intake Oral 0 ml 30 ml 10 ml IV Total 200 ml Output Urine Total 0 ml 0 ml # Voids 0 # Bowel Movements 0 0 0 (Albaro Julio MD R2) Result Diagram: 12/16/16 0711 12/16/16 0711 Imaging Last 72 hours Impressions Hip and Pelvis X-Ray 12/15/16 0000 Signed Impressions: Service Date/Time: Thursday, December 15, 2016 05:00 - CONCLUSION: Intact total hip prosthesis for technique and extensive stool and osteopenia as above. Rigoberto Valencia MD Head CT 12/15/16 0000 Signed Impressions: Service Date/Time: Thursday, December 15, 2016 04:53 - CONCLUSION: Chronic and small vessel ischemic changes without any evidence for acute hemorrhage or mass effect. Rigoberto Valencia MD Chest X-Ray 12/15/16 0000 Signed Impressions: Service Date/Time: Thursday, December 15, 2016 07:41 - CONCLUSION: 1. No change in medial left lower lobe consolidation versus atelectasis and small left pleural effusion. 2. Mild bilateral interstitial opacity indicating possible mild pulmonary edema. Sony Erickson MD Cervical Spine CT 12/15/16 0000 Signed Impressions: Service Date/Time: Thursday, December 15, 2016 04:53 - CONCLUSION: Neural foramina compromise right C3-4, right C5-C6 and bilateral lateral recess compromise C5- 6. Rigoberto Valencia MD Objective Remarks GENERAL: Sitting up in bed eating, no acute distress, answers yes or no questions SKIN: Stage 2-3 sacral decubitus ulcer (dressing changed 12/14, sees wound care), stage 2-3 pressure ulcer R posterior calf, healing. Skin abrasion over L anterior warren. Several bruises over shins and forearms in various stages of healing. HEAD: NC/AT EYES: PERRL. EOMI. No conjunctival injection or drainage. ENT: MMM, OP without erythema, tonsillar swelling, or exudate. Tongue with small laceration and some dried blood. NECK: Supple, no lymphadenopathy. No JVD. CARDIOVASCULAR: Normal rate, irregularly irregular rhythm. Normal S1/S2. No MRG RESPIRATORY: Mild crackles bilaterally lower lobes GASTROINTESTINAL: Abdomen soft, non-distended, non-tender. No hepato- splenomegaly or palpable masses. MUSCULOSKELETAL: Extremities without clubbing, cyanosis, or edema. (Albaro Julio MD R2) A/P Assessment and Plan 89 yo female with PMH of CHF with last echo 2014 showing EF 35%, ESRD on dialysis TTS, CAD s/p stenting, sacral decubitus ulcers presenting after being found on the ground at halfway. Sent to the ED for evaluation and was admitted for altered mental status and urinary tract infection. Discharge Planning Pending establishment of goals of treatment with family, stabilization of acute medical problems. (Albaro Julio MD R2) Attending Attestation Patient seen and examined, discussed with resident team. I agree with assessment and management as documented and discussed with me. No new concerns. She is a little agitated today and will not allow me to examine her. Continue antibiotics. Await UCx. (Helen La MD) Problem List: (1) Urinary tract infection Status: Acute Plan: UA with leuk esterase and bacteria (catheterized sample). Leukocytosis but no fevers. - Levaquin dosed renally (500 mg Q48H) - Follow urine culture (2) Altered mental status Status: Resolved Plan: In setting of elevated WBC and + bacteria and leuk esterase in catheterized urine sample, likely etiology is UTI. Could be secondary to uncontrolled pain (recent hip replacement). Differential also includes CHF, DC, pneumonia. Does not meet sepsis criteria. Initial EKG without tachycardia, ST-T wave changes; AFib with normal HR. Troponins/EKG reassuring. ECHO done, EF of 55 to 60%. Chest x-ray shows edema, less likely to be pneumonia. - Trend troponin, EKG - Tylenol for pain, currently appears well controlled - Treat urinary tract infection - Delirium prevention: sunlight, no sleeping during the day, hold sedating medications - Follow blood culture, no growth to date (3) CHF, chronic Status: Chronic Plan: Slight crackles on exam but maintaining O2 saturations, not tachypneic, unlikely to be current exacerbation - Continue home beta rock - Monitor fluid status (4) ESRD (end stage renal disease) on dialysis Status: Chronic Plan: Initial creatine currently 2.63 which is about baseline, today is 3.35. Due for hemodialysis today, is on a Sunday, , Sunday schedule. - Nephrology on board. - Continue phosphate binder, Ca, vitamin D - Monitor electrolytes - Renally dose medicines, avoid nephrotoxic agents (5) Sacral decubitus ulcer Status: Chronic Plan: Stable from previous descriptions in outpatient setting, do not appear acutely infected on exam. - Consult wound nurse - Rotate patient every 2 hours - Santyl dressing changes daily on sacral ulcer, not on other ulcers (6) Essential hypertension Status: Chronic Plan: BP stable - Continue home Coreg, hold for BP < 90/50 (7) Coronary artery disease Status: Chronic Plan: S/p CABG - Continue home ASA, Plavix, Statin (8) History of right hip hemiarthroplasty Status: Chronic Plan: No abnormalities on X-ray - Pain as above (9) Paroxysmal atrial fibrillation Status: Chronic Plan: Had been on coumadin previously but due to recent bleed requiring hospital visit this was discontinued. - Continue rate control with beta rock - Continue ASA/Plavix (10) Dementia Status: Chronic Plan: Dementia, at high risk for delirium - Continue home trazodone as needed for sleep - Delirium precautions (11) FEN/PPX Status: Acute Plan: Fluids: use with caution Elecs: Monitor and replete PRN Nutrition: Diet regular basic, Nepro supplementation DVT: Lovenox [address] 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
[2016-12-16] MEDS: GELATIN 12 MM/7 MM FOAM TOP PRN (14:03)
[2016-12-16] MEDS: SODIUM CHLOR 0.9% 1000 ML INJ 1,000 ML IV PRN (14:04)
--- NOTE | 2016-12-16 15:34 | EKG ---
Date Performed: 12/15/2016 Time Performed: 20:30:10 PTAGE: 89 years EKG: ATRIAL Fibrillation INCOMPLETE RIGHT BUNDLE BRANCH BLOCK RIGHT VENTRICULAR HYPERTROPHY Comp ared to prior tracing no significant change ABNORMAL ECG PREVIOUS TRACING : 12/15/2016 08.10 DOCTOR: Suresh Han Interpretating Date/Time 12/16/2016 15:33:18
[2016-12-16] MEDS ORDERED: EPOETIN ALFA 10,000 UNITS/ML VIAL SQ SCH (17:00)
--- NOTE | 2016-12-16 17:02 | HHI.NPPN ---
Subjective History of Present Illness The patient is am 89 yo [place] female who is known to our services for ESRD on HD. She was brought to this facility as she was found on the floor of her NH. She is altered at the present, so no other information can be gathered. She has multiple abrasions on her LEs and her mouth is covered in blood. Uncertain if she bit her tongue. Imaging and labs reviewed. Appears she may have a UTI. Last HD yesterday---on TTS schedule. Interval History Patient seen postdialysis today. Somewhat confused but responding yes and no to questions. Review of Systems General General Remarks No verbal complaints. Objective Data Data 12/15/16 12/16/16 19:00 07:00 Intake Total 0 ml 240 ml Output Total 0 ml Balance 0 ml 240 ml Intake Oral 0 ml 40 ml IV Total 200 ml Output Urine Total 0 ml # Voids 0 # Bowel Movements 0 0 Vital Signs Date Time Temp Pulse Resp B/P Pulse Ox O2 Delivery O2 Flow Rate FiO2 12/16/16 08:00 74 12/16/16 08:00 97.6 109 18 143/85 94 12/16/16 07:59 92 21 12/16/16 04:45 97.6 102 16 92/50 93 12/16/16 00:03 97.6 78 16 92/54 94 12/15/16 20:20 97.2 89 16 122/61 95 12/15/16 20:12 62 -: 12/16/16 0711 12/16/16 0711 Physical Exam General Appearance: Malnourished Appearance Remarks Very frail in appearance. Wasting of musculature of all limbs. Eyes Eye Exam: Sclera White Neck Neck Exam: Trachea Midline Pulmonary Resp Exam: Clear Bilaterally, Breath Sounds Equal, No Distress Cardiology CV Exam: Regular Gastrointestinal/Abdomen GI Exam: Soft, Non-Tender Integumentary Skin Exam: Clear, Warm Neurologic Neuro Exam: Awake, Moving All Extremities Assessment/Plan Problem List: (1) ESRD (end stage renal disease) on dialysis Plan: The patient's typical HD days are TTS. Patient appears to be somewhat improved since yesterday however her overall status including mental status has been declining progressively these last several months. Continue to monitor patient's progression. Have discussed with the patient and children regarding continuance of dialysis previously. Patient indicated that she did want to continue dialysis at that time however her children were advised that a time will calm with they will have to make a decision for the mother regarding aggressiveness of care as far as dialysis is concerned. Opinion is is that hospice will have to be considered without dialysis at some point in the not too distant future when it no longer appears to be contributing significantly to her quality of life for her remaining time. Medications should be adjusted for the patient's ESRD. Avoid gadolinium (2) Altered mental status Plan: w/u in progress Advancing dementia? Delirium? UTI? (3) Urinary tract infection Plan: Abx deferred to primary (4) Failure to thrive in adult Plan: Ongoing these last several months. Patient has been requesting to come off the dialysis machine early as an outpatient during her treatment but still indicated recently that she wanted to continue dialysis. She was advised however by being noncompliant with her dialysis treatments her overall prognosis is significantly reduced. Regardless however even with aggressive medical care her prognosis appears to be poor. (5) Anemia of renal disease Plan: Epogen has been ordered. Check iron stores tomorrow. Problem Qualifiers (1) Altered mental status: Qualified Code: R41.0 - Delirium (2) Urinary tract infection: Qualified Code: N30.00 - Acute cystitis without hematuria Pio Morton MD Dec 16, 2016 17:02
[2016-12-16] MEDS: LATANOPROST 0.005% OPHT SOLN 2.5 ML BTL EACH EYE SCH (22:04)
[2016-12-16] MEDS: traZODone HCL 50 MG TAB PO SCH (22:04)
[2016-12-17] VITALS (10 sets, daily range): BP systolic 90–118; BP diastolic 51–58; PULSE 90–103; RESP 18–20; TEMP 97.6–98.2; O2SAT 93–98
[2016-12-17] MEDS: ACETAMINOPHEN 1000 MG/100 ML VIAL IV SCH ×4 (03:06→21:08)
[2016-12-17] MEDS: LEVOTHYROXINE SODIUM 112 MCG TAB PO SCH (05:40)
[2016-12-17 07:32] LABS: HEMATOCRIT 23.3 % (35.0-46.0); MEAN CELL VOLUME 92.7 FL (80.0-100.0); MEAN CORPUSCULAR HEMOGLOBIN 30.5 PG (27.0-34.0); MEAN CORPUSCULAR HGB CONC 32.9 % (32.0-36.0); PLATELET COUNT 488 TH/MM3 (150-450); RED BLOOD COUNT 2.52 MIL/MM3 (4.00-5.30); RED CELL DISTRIBUTION WIDTH 17.1 % (11.6-17.2); REVIEW FLAG FINAL; WHITE BLOOD COUNT 17.3 TH/MM3 (4.0-11.0)
[2016-12-17 07:52] LABS: ANION GAP 9 MEQ/L (5-15); BICARBONATE 28.9 MEQ/L (21.0-32.0); BLOOD UREA NITROGEN 16 MG/DL (7-18); CHLORIDE 96 MEQ/L (98-107); GLOMERULAR FILTRATION RATE 15 ML/MIN (>89); POTASSIUM 3.4 MEQ/L (3.5-5.1); SODIUM (NA) 134 MEQ/L (136-145); TRANSFERRIN IRON PROFILE 107 MG/DL (200-360)
[2016-12-17] MEDS: SODIUM CHLORIDE 0.9% FLUSH 10 ML FLUSH IV FLUSH SCH ×2 (09:00→21:13)
[2016-12-17] MEDS: ENOXAPARIN SODIUM 30 MG/0.3 ML SYRINGE SQ SCH (09:19)
[2016-12-17] MEDS: CARVEDILOL 3.125 MG TAB PO SCH ×2 (09:19→21:07)
[2016-12-17] MEDS: CALCIUM ACETATE 667 MG CAP PO SCH ×3 (09:19→18:06)
[2016-12-17] MEDS: CHOLECALCIFEROL (VIT D3) 1000 UNIT TAB PO SCH (09:20)
[2016-12-17] MEDS: FAMOTIDINE 20 MG TAB PO SCH (09:20)
[2016-12-17] MEDS: VITAMIN B CMPLX/VITC/FOLIC AC CAP PO SCH (09:20)
[2016-12-17] MEDS: FUROSEMIDE 20 MG TAB PO SCH (09:20)
[2016-12-17] MEDS: CLOPIDOGREL 75 MG TAB PO SCH (09:20)
[2016-12-17] MEDS: POLYETHYLENE GLYCOL 17 GM PKG PO SCH (09:21)
[2016-12-17] MEDS: ASPIRIN EC 81 MG TABEC PO SCH (09:21)
[2016-12-17] MEDS: NUTRITIONAL SUPPLEMENTS PO SCH ×2 (09:21→09:39)
[2016-12-17] MEDS: PRAVASTATIN SOD 40 MG TAB PO SCH (09:21)
[2016-12-17] MEDS: amLODIPine BESYLATE 5 MG TAB PO SCH (09:21)
[2016-12-17] MEDS: COLLAGENASE OINT 30 GM TUBE TOPICAL SCH ×2 (09:22→09:39)
--- NOTE | 2016-12-17 10:47 | HHI.FPPN ---
Subjective Remarks No acute events overnight. Much more awake/alert today than previously. Denies CP/SOB, N/V. (Kade Tyler MD R1) Objective Vitals Vital Signs Date Time Temp Pulse Resp B/P Pulse Ox O2 Delivery O2 Flow Rate FiO2 12/17/16 09:07 95 21 12/17/16 08:04 97.7 101 20 113/58 94 12/17/16 04:00 98.1 102 18 118/55 96 12/17/16 00:00 97.6 103 18 113/56 93 12/16/16 20:42 82 12/16/16 20:03 80 12/16/16 20:00 97.4 103 18 112/55 91 12/16/16 16:00 97.0 107 18 140/63 97 I/O 12/16/16 12/16/16 12/16/16 12/17/16 12/17/16 12/17/16 07:00 15:00 23:00 07:00 15:00 23:00 Intake Total 210 ml 360 ml 340 ml 200 ml Output Total 0 ml Balance 210 ml 360 ml 340 ml 200 ml Intake Oral 10 ml 360 ml 240 ml 100 ml IV Total 200 ml 100 ml 100 ml Output Urine Total 0 ml # Voids 0 0 0 # Bowel Movements 0 0 0 0 (Kade Tyler MD R1) Result Diagram: 12/17/16 0612/17/16 06 Other Results EEG showing no epileptic foci Echo showing EF 55-60% Objective Remarks GENERAL: Lying in bed comfortably and in no acute distress, answers yes or no questions SKIN: Stage 2-3 sacral decubitus ulcer (dressing changed 12/14, sees wound care), stage 2-3 pressure ulcer R posterior calf, healing. Skin abrasion over L anterior warren. Several bruises over shins and forearms in various stages of healing. CARDIOVASCULAR: Normal rate, irregularly irregular rhythm. Normal S1/S2. No MRG RESPIRATORY: CTAB, no crackles or wheezes MUSCULOSKELETAL: Extremities without clubbing, cyanosis, or edema. Wounds as documented above. (Kade Tyler MD R1) A/P Assessment and Plan 89 yo female with PMH of CHF with last echo 2014 showing EF 35%, ESRD on dialysis TTS, CAD s/p stenting, sacral decubitus ulcers presenting after being found on the ground at half-way. Sent to the ED for evaluation and was admitted for altered mental status and urinary tract infection. Discharge Planning Pending establishment of goals of treatment with family, result of urine culture (Kade Tyler MD R1) Attending Attestation Patient seen and examined, discussed with Dr Tyler. I agree with assessment and management as documented and discussed with me. Pt much more alert today. Await urine culture prior to discharge. (Helen La MD) Problem List: (1) Urinary tract infection Status: Acute Plan: UA with leuk esterase and bacteria (catheterized sample). Leukocytosis but no fevers. - Levaquin dosed renally (500 mg Q48H) - Follow urine culture (2) Altered mental status Status: Resolved Plan: In setting of elevated WBC and + bacteria and leuk esterase in catheterized urine sample, likely etiology is UTI. Pain from recent hip surgery could be component. EKG without tachycardia, ST-T wave changes; AFib with normal HR. Troponins/EKG reassuring. ECHO done, EF of 55 to 60%. Chest x-ray shows edema, less likely to be pneumonia. - Tylenol 1 g IV Q6H for pain, currently appears well controlled - Treat urinary tract infection - Delirium prevention: sunlight, no sleeping during the day, hold sedating medications - Follow blood culture, no growth to date (3) CHF, chronic Status: Chronic Plan: EF 55-60%, not currently symptomatic - Continue home beta rock - Monitor fluid status (4) ESRD (end stage renal disease) on dialysis Status: Chronic Plan: Initial creatine currently 2.63 which is about baseline, today is 3.35. Due for hemodialysis today, is on a Sunday, , Sunday schedule. - Nephrology on board, appreciate recs - Continue phosphate binder, Ca, vitamin D - Monitor electrolytes - Renally dose medicines, avoid nephrotoxic agents (5) Sacral decubitus ulcer Status: Chronic Plan: Stable from previous descriptions in outpatient setting, do not appear acutely infected on exam - Consult wound nurse, appreciate recs - Rotate patient every 2 hours - Santyl dressing changes daily on sacral ulcer, not on other ulcers (6) Essential hypertension Status: Chronic Plan: BP stable - Continue home Coreg, hold for BP < 90/50 (7) Coronary artery disease Status: Chronic Plan: S/p CABG - Continue home ASA, Plavix, Statin (8) History of right hip hemiarthroplasty Status: Chronic Plan: No abnormalities on X-ray - Pain as above (9) Paroxysmal atrial fibrillation Status: Chronic Plan: Had been on coumadin previously but due to recent bleed requiring hospital visit this was discontinued. - Continue rate control with beta rock - Continue ASA/Plavix (10) Dementia Status: Chronic Plan: Dementia, at high risk for delirium - Continue home trazodone as needed for sleep - Delirium precautions (11) FEN/PPX Status: Acute Plan: Fluids: use with caution Elecs: Monitor and replete PRN Nutrition: Diet regular basic, Nepro supplementation DVT: Lovenox [address] 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
--- NOTE | 2016-12-17 15:22 | HHI.NPPN ---
Subjective History of Present Illness The patient is am 89 yo [place] female who is known to our services for ESRD on HD. She was brought to this facility as she was found on the floor of her NH. She is altered at the present, so no other information can be gathered. She has multiple abrasions on her LEs and her mouth is covered in blood. Uncertain if she bit her tongue. Imaging and labs reviewed. Appears she may have a UTI. Last HD yesterday---on TTS schedule. Interval History Patient appears to be more alert today. No verbal complaints. Responding to simple commands and questions. Son by bedside.. Review of Systems General General Remarks No verbal complaints. Objective Data Data 12/16/16 12/17/16 19:00 07:00 Intake Total 360 ml 540 ml Balance 360 ml 540 ml Intake Oral 360 ml 340 ml IV Total 200 ml # Voids 0 0 # Bowel Movements 0 0 Vital Signs Date Time Temp Pulse Resp B/P Pulse Ox O2 Delivery O2 Flow Rate FiO2 12/17/16 12:04 97.7 102 20 104/56 98 12/17/16 09:07 95 21 12/17/16 08:04 97.7 101 20 113/58 94 12/17/16 04:00 98.1 102 18 118/55 96 12/17/16 00:00 97.6 103 18 113/56 93 12/16/16 20:42 82 12/16/16 20:03 80 12/16/16 20:00 97.4 103 18 112/55 91 12/16/16 16:00 97.0 107 18 140/63 97 -: 12/17/16 0600 12/17/16 0600 Physical Exam General Appearance: Malnourished Appearance Remarks Very frail in appearance. Wasting of musculature of all limbs. Eyes Eye Exam: Sclera White Neck Neck Exam: Trachea Midline Pulmonary Resp Exam: Clear Bilaterally, Breath Sounds Equal, No Distress Cardiology CV Exam: Regular Gastrointestinal/Abdomen GI Exam: Soft, Non-Tender Integumentary Skin Exam: Clear, Warm Neurologic Neuro Exam: Awake, Moving All Extremities Assessment/Plan Problem List: (1) ESRD (end stage renal disease) on dialysis Plan: The patient's typical HD days are TTS. Patient is showing some improvement in her mental status and is close to baseline at this time. However she is still severely debilitated and long-term prognosis is poor in my opinion. Continue with dialytic support as per patient and family's wishes. Opinion is is that hospice will have to be considered without dialysis at some point in the not too distant future when it no longer appears to be contributing significantly to her quality of life for her remaining time. Medications should be adjusted for the patient's ESRD. Avoid gadolinium (2) Altered mental status Plan: w/u in progress Advancing dementia? Delirium? UTI? (3) Urinary tract infection Plan: Abx deferred to primary (4) Failure to thrive in adult Plan: Ongoing these last several months. Patient has been requesting to come off the dialysis machine early as an outpatient during her treatment but still indicated recently that she wanted to continue dialysis. She was advised however by being noncompliant with her dialysis treatments her overall prognosis is significantly reduced. (5) Anemia of renal disease Plan: Venofer as ordered. Problem Qualifiers (1) Altered mental status: Qualified Code: R41.0 - Delirium (2) Urinary tract infection: Qualified Code: N30.00 - Acute cystitis without hematuria Pio Morton MD Dec 17, 2016 15:22
[2016-12-17] MEDS: traZODone HCL 50 MG TAB PO SCH (21:07)
[2016-12-17] MEDS: LATANOPROST 0.005% OPHT SOLN 2.5 ML BTL EACH EYE SCH (21:08)
[2016-12-18] VITALS (11 sets, daily range): BP systolic 86–158; BP diastolic 48–68; PULSE 74–100; RESP 16–20; TEMP 97.7–98.2; O2SAT 95–100
[2016-12-18] MEDS: ACETAMINOPHEN 1000 MG/100 ML VIAL IV SCH ×3 (03:20→22:01)
[2016-12-18] MEDS: LEVOTHYROXINE SODIUM 112 MCG TAB PO SCH (06:00)
[2016-12-18 07:19] LABS: AUTOMATED NEUTROPHIL # 14.8 TH/MM3 (1.8-7.7); BASOPHIL # 0.1 TH/MM3 (0-0.2); BASOPHIL % 0.5 % (0.0-2.0); EOSINOPHIL # 0.2 TH/MM3 (0-0.4); EOSINOPHIL % 1.1 % (0.0-4.0); LYMPHOCYTE # 1.5 TH/MM3 (1.0-4.8); MEAN CELL VOLUME 94.1 FL (80.0-100.0); MEAN CORPUSCULAR HEMOGLOBIN 30.3 PG (27.0-34.0); MEAN CORPUSCULAR HGB CONC 32.2 % (32.0-36.0); MONO % 9.2 % (0.0-8.0); NEUT % 81.2 % (16.0-70.0); PLATELET COUNT 370 TH/MM3 (150-450); RED BLOOD COUNT 2.09 MIL/MM3 (4.00-5.30); RED CELL DISTRIBUTION WIDTH 17.4 % (11.6-17.2); WHITE BLOOD COUNT 18.2 TH/MM3 (4.0-11.0)
[2016-12-18 07:34] LABS: BICARBONATE 27.6 MEQ/L (21.0-32.0); POTASSIUM 4.3 MEQ/L (3.5-5.1)
[2016-12-18 08:06] LABS: HEMO FLAGS AUTO DIFF
[2016-12-18 08:07] LABS: HEMATOCRIT 19.7 % (35.0-46.0)
--- NOTE | 2016-12-18 08:23 | HHI.FPPN ---
Subjective Remarks Overnight no acute events. This morning she feels no CP, SOB, abdominal pain. She has no issues passing urine. She had 1 BM yesterday. (Kade Tyler MD R1) Objective Vitals Vital Signs Date Time Temp Pulse Resp B/P Pulse Ox O2 Delivery O2 Flow Rate FiO2 12/18/16 04:00 98.2 95 18 108/59 100 12/18/16 00:00 97.9 99 16 108/58 95 12/17/16 20:42 93 21 12/17/16 20:00 98.2 100 18 105/55 97 12/17/16 19:58 90 12/17/16 17:08 102 12/17/16 16:03 97.7 101 20 90/51 96 12/17/16 12:04 97.7 102 20 104/56 98 12/17/16 09:07 95 21 I/O 12/17/16 12/17/16 12/17/16 12/18/16 12/18/16 12/18/16 07:00 15:00 23:00 07:00 15:00 23:00 Intake Total 200 ml 345 ml 100 ml 220 ml Output Total 0 ml Balance 200 ml 345 ml 100 ml 220 ml Intake Oral 100 ml 120 ml 0 ml 120 ml IV Total 100 ml 225 ml 100 ml 100 ml Output Urine Total 0 ml # Voids 0 2 0 # Bowel Movements 0 1 0 1 (Kade Tyler MD R1) Result Diagram: 12/18/16 0602 12/18/16 0602 Imaging Last Impressions Hip and Pelvis X-Ray 12/15/16 0000 Signed Impressions: Service Date/Time: Thursday, December 15, 2016 05:00 - CONCLUSION: Intact total hip prosthesis for technique and extensive stool and osteopenia as above. Rigoberto Valencia MD Head CT 12/15/16 0000 Signed Impressions: Service Date/Time: Thursday, December 15, 2016 04:53 - CONCLUSION: Chronic and small vessel ischemic changes without any evidence for acute hemorrhage or mass effect. Rigoberto Valencia MD Chest X-Ray 12/15/16 0000 Signed Impressions: Service Date/Time: Thursday, December 15, 2016 07:41 - CONCLUSION: 1. No change in medial left lower lobe consolidation versus atelectasis and small left pleural effusion. 2. Mild bilateral interstitial opacity indicating possible mild pulmonary edema. Sony Erickson MD Cervical Spine CT 12/15/16 0000 Signed Impressions: Service Date/Time: Thursday, December 15, 2016 04:53 - CONCLUSION: Neural foramina compromise right C3-4, right C5-C6 and bilateral lateral recess compromise C5- 6. Rigoberto Valencia MD Objective Remarks GENERAL: Lying in bed comfortably and in no acute distress, answers yes or no questions SKIN: Stage 2-3 sacral decubitus ulcer (dressing changed 12/14, sees wound care), stage 2-3 pressure ulcer R posterior calf, healing. Skin abrasion over L anterior warren. Several bruises over shins and forearms in various stages of healing. CARDIOVASCULAR: Normal rate, irregularly irregular rhythm. Normal S1/S2. No MRG RESPIRATORY: CTAB, no crackles or wheezes MUSCULOSKELETAL: Extremities without clubbing, cyanosis, or edema. Wounds as documented above. Medications and IVs Current Medications Medications (Trade) Dose Ordered Sig/Tavares Route Start Time Stop Time Status Last Admin (NS Flush) 2 ml UNSCH PRN IV FLUSH 12/15/16 07:45 (NS Flush) 2 ml BID IV FLUSH 12/15/16 09:00 12/17/16 21:13 Enoxaparin Sodium 30 mg 30 mg Q24H SQ 12/15/16 09:00 12/17/16 09:19 (Levaquin 500 Mg Premix Inj) 100 ml @ 100 mls/hr Q48H IV 12/16/16 08:00 12/16/16 09:34 (Norvasc) 5 mg DAILY PO 12/15/16 09:00 12/17/16 09:21 (Ecotrin Ec) 81 mg DAILY PO 12/15/16 09:00 12/17/16 09:21 (Dulcolax Supp) 10 mg DAILY PRN RECTAL 12/15/16 08:00 12/17/16 21:47 (Phoslo) 667 mg TID PO 12/15/16 09:00 12/17/16 18:06 (Coreg) 3.125 mg Q12HR PO 12/15/16 09:00 12/17/16 21:07 (Plavix) 75 mg DAILY PO 12/15/16 09:00 12/17/16 09:20 (Lasix) 20 mg DAILY PO 12/15/16 09:00 12/17/16 09:20 (Xalatan 0.005% Opth Soln) 1 drop HS EACH EYE 12/15/16 21:00 12/17/16 21:08 (Synthroid) 112 mcg DAILY@06 PO 12/15/16 08:09 12/18/16 06:00 (Pravachol) 40 mg DAILY PO 12/15/16 09:00 12/17/16 09:21 (Miralax) 17 gm DAILY PO 12/15/16 09:00 12/17/16 09:21 (Polly-Colace) 2 tab BID PRN PO 12/15/16 08:00 (Desyrel) 50 mg HS PO 12/15/16 21:00 12/17/16 21:07 (Nephrocaps) 1 cap DAILY PO 12/15/16 09:00 12/17/16 09:20 (Vitamin D3) 2,000 units DAILY PO 12/15/16 09:00 12/17/16 09:20 Non-Formulary Medication 1 can DAILY PO 12/15/16 09:00 12/17/16 09:39 (Zofran Odt) 4 mg Q8HR PRN PO 12/15/16 08:00 (Pepcid) 10 mg DAILY PO 12/15/16 09:00 12/17/16 09:20 (Ofirmev Inj) 1,000 mg Q6H IV 12/15/16 15:00 12/18/16 03:20 Collagenase 1 applic 1 applic DAILY TOPICAL 12/16/16 09:00 12/17/16 09:39 (NS 1000 ml Inj) 1,000 ml @ 0 mls/hr Q0M PRN IV 12/15/16 16:49 12/16/16 14:04 Heparin Sodium (Porcine) 8000 units 8,000 units UNSCH PRN IVF 12/15/16 17:00 Sodium Chloride 1,000 ml @ 200 mls/hr Q5H PRN IV 12/15/16 16:49 (NS 1000 ml Inj) 1,000 ml @ 0 mls/hr Q0M PRN IV 12/15/16 16:49 (Mannitol Inj) 12.5 gm UNSCH PRN IV 12/15/16 17:00 (Albumin 25% Inj) 25 gm UNSCH PRN IV 12/15/16 17:00 (NS Flush) 5 ml UNSCH PRN IV FLUSH 12/15/16 17:00 (Heparin Inj) UNSCH PRN .XX 12/15/16 17:00 (Gentamicin (Dialysis) Inj) 20 mg UNSCH PRN IV 12/15/16 17:00 (Zofran Inj) 4 mg UNSCH PRN IV 12/15/16 17:00 (Tylenol) 650 mg UNSCH PRN PO 12/15/16 17:00 (Benadryl) 25 mg UNSCH PRN PO 12/15/16 17:00 (Nitrostat Sl) 0.4 mg UNSCH PRN SL 12/15/16 17:00 (Catapres) 0.1 mg UNSCH PRN PO 12/15/16 17:00 (Gelfoam 12 Mm/7 Mm Top) 1 foam UNSCH PRN TOP 12/15/16 17:00 12/16/16 14:03 Epoetin Adrián 69447 units 10,000 units 2XWEEK SQ 12/16/16 17:00 (Venofer Inj/NS Inj) 105 ml @ 105 mls/hr DAILY IV 12/18/16 09:00 12/20/16 09:59 (Kade Tyler MD R1) A/P Assessment and Plan 89 yo female with PMH of CHF with last echo 2014 showing EF 35%, ESRD on dialysis TTS, CAD s/p stenting, sacral decubitus ulcers presenting after being found on the ground at long term. Sent to the ED for evaluation and was admitted for altered mental status and urinary tract infection. (Kade Tyler MD R1) Attending Attestation Patient seen and examined, discussed with resident team. I agree with assessment and management as documented and discussed with me. No new concerns from patient or nursing. Hemoglobin has dropped - plan to recheck to ensure accuracy/stability. Transfuse if indicated, but suspect low hemoglobin is secondary to ESRD. Once hgb stable, anticipate transfer back to nursing facility. (Helen La MD ) Problem List: (1) Urinary tract infection Status: Acute Plan: UA with leuk esterase and bacteria (catheterized sample). Leukocytosis but no fevers. - Levaquin dosed renally (500 mg Q48H) - Follow urine culture (2) Altered mental status Status: Resolved Plan: In setting of elevated WBC and + bacteria and leuk esterase in catheterized urine sample, likely etiology is UTI. Pain from recent hip surgery could be component. EKG without tachycardia, ST-T wave changes; AFib with normal HR EEG showing no evidence of seizure disorder Troponins/EKG reassuring ECHO done, EF of 55 to 60%. Chest x-ray shows edema, no evidence of pneumonia UCx 50-100k CFU/mL mixed GPC - Has been getting Tylenol 1 g IV Q6H for pain, on discharge can consider scheduling 650 mg PO every 6-8 hours - Treating UTI (despite negative culture, patient improved with treatment); today's dose of Levaquin will cover for final two days of a 5 day course - Delirium prevention: sunlight, no sleeping during the day, hold sedating medications (3) CHF, chronic Status: Chronic Plan: EF 55-60%, not currently symptomatic - Continue home beta rock (4) ESRD (end stage renal disease) on dialysis Status: Chronic Plan: Initial creatine currently 2.63 which is about baseline, today is 2.97. Hemodialysis on a Sunday, , Sunday schedule. - Nephrology on board, appreciate recs - Continue phosphate binder, Ca, vitamin D - Continue outpatient dialysis - Renally dose medicines, avoid nephrotoxic agents (5) Anemia of renal disease Status: Chronic Plan: Hgb today 6.3, down from 8.3 on admission. Likely this is chronic due to renal disease. Patient currently asymptomatic. If patient deteriorates or localizing signs/symptoms develop, will consider w/u for GIB. Serum iron 22 TIBC 150 % saturation ~15 - Nephrology consulted, appreciate recs - Venofer as ordered by nephrology (daily) - Transfusion typically not indicated in ESRD patients on hemodialysis unless severe or patient symptomatic - Check ferritin level (6) Sacral decubitus ulcer Status: Chronic Plan: Stable from previous descriptions in outpatient setting, do not appear acutely infected on exam - Consult wound nurse, appreciate recs - Rotate patient every 2 hours - Santyl dressing changes daily on sacral ulcer, not on other ulcers - On discharge, continue treatment of wounds per patient's wound care physician (7) Essential hypertension Status: Chronic Plan: BP stable - Continue home Coreg, hold for BP < 90/50 (8) Coronary artery disease Status: Chronic Plan: S/p CABG - Continue home ASA, Plavix, Statin (9) History of right hip hemiarthroplasty Status: Chronic Plan: No abnormalities on X-ray - Pain as above (10) Paroxysmal atrial fibrillation Status: Chronic Plan: Had been on Coumadin previously, but due to recent bleed requiring hospital visit this was discontinued. - Continue rate control with beta rock - Continue ASA/Plavix (11) Dementia Status: Chronic Plan: Dementia, at high risk for delirium - Continue home trazodone as needed for sleep - Delirium precautions (12) FEN/PPX Status: Acute Plan: Fluids: use with caution Elecs: Monitor and replete PRN Nutrition: Diet regular basic, Nepro supplementation DVT: Lovenox [address] La (Kade Tyler MD R1) Problem Qualifiers (1) Urinary tract infection: Qualified Code: N30.00 - Acute cystitis without hematuria (2) Altered mental status: Qualified Code: R41.0 - Delirium (3) Dementia: Qualified Code: G30.1 - Late onset Alzheimer's disease without behavioral disturbance Kade Tyler MD R1 Dec 18, 2016 08:23 Helen La MD Dec 18, 2016 12:19
[2016-12-18] MEDS ORDERED: COLL30T TOPICAL (08:32)
--- NOTE | 2016-12-18 08:41 | HHI.DCPOC ---
Discharge Care Plan Diagnosis: (1) Urinary tract infection (2) Altered mental status (3) Fall Goals to Promote Your Health * To prevent worsening of your condition and complications * To maintain your health at the optimal level Directions to Meet Your Goals Take your medications as prescribed Follow your dietary instruction Follow activity as directed Keep your appointments as scheduled Take your immunizations and boosters as scheduled If your symptoms worsen call your PCP, if no PCP go to Urgent Care Center or Emergency Room Smoking is Dangerous to Your Health. Avoid second hand smoke Call the 24-hour hour crisis hotline for domestic abuse at Albaro Julio MD R2 Dec 18, 2016 08:41
[2016-12-18] MEDS: LEVOFLOXACIN 500 MG PREMIX INJ 100 ML IV SCH (08:45)
[2016-12-18 08:49] LABS: SCAN/DIFF AUTO DIFF CONFIRMED
[2016-12-18] MEDS: IRON SUCROSE INJ 100 MG in SODIUM CHLORIDE 0.9% INJ 100 ML IV SCH (08:52)
[2016-12-18] MEDS: SODIUM CHLORIDE 0.9% FLUSH 10 ML FLUSH IV FLUSH SCH ×2 (08:53→22:02)
--- NOTE | 2016-12-18 08:53 | HHI.DS ---
Discharge Summary Admission Date Dec 15, 2016 at 06:32 Admitting Diagnosis urosepsis (1) Urinary tract infection Diagnosis: Principal Plan: UA with leuk esterase and bacteria (catheterized sample). Leukocytosis but no fevers. - Levaquin dosed renally (500 mg Q48H) - Follow urine culture (2) Altered mental status Diagnosis: Principal Plan: In setting of elevated WBC and + bacteria and leuk esterase in catheterized urine sample, likely etiology is UTI. Pain from recent hip surgery could be component. EKG without tachycardia, ST-T wave changes; AFib with normal HR EEG showing no evidence of seizure disorder Troponins/EKG reassuring ECHO done, EF of 55 to 60%. Chest x-ray shows edema, no evidence of pneumonia UCx 50-100k CFU/mL mixed GPC - Has been getting Tylenol 1 g IV Q6H for pain, on discharge can consider scheduling 650 mg PO every 6-8 hours - Treating UTI (despite negative culture, patient improved with treatment); today's dose of Levaquin will cover for final two days of a 5 day course - Delirium prevention: sunlight, no sleeping during the day, hold sedating medications (3) CHF, chronic Diagnosis: Principal Plan: EF 55-60%, not currently symptomatic - Continue home beta rock (4) ESRD (end stage renal disease) on dialysis Diagnosis: Principal Plan: Initial creatine currently 2.63 which is about baseline, today is 2.97. Hemodialysis on a Sunday, , Sunday schedule. - Nephrology on board, appreciate recs - Continue phosphate binder, Ca, vitamin D - Continue outpatient dialysis - Renally dose medicines, avoid nephrotoxic agents (5) Sacral decubitus ulcer Diagnosis: Principal Plan: Stable from previous descriptions in outpatient setting, do not appear acutely infected on exam - Consult wound nurse, appreciate recs - Rotate patient every 2 hours - Santyl dressing changes daily on sacral ulcer, not on other ulcers - On discharge, continue treatment of wounds per patient's wound care physician (6) Essential hypertension Diagnosis: Secondary Plan: BP stable - Continue home Coreg, hold for BP < 90/50 (7) Coronary artery disease Diagnosis: Secondary Plan: S/p CABG - Continue home ASA, Plavix, Statin (8) History of right hip hemiarthroplasty Diagnosis: Secondary Plan: No abnormalities on X-ray - Pain as above (9) Paroxysmal atrial fibrillation Diagnosis: Secondary Plan: Had been on Coumadin previously, but due to recent bleed requiring hospital visit this was discontinued. - Continue rate control with beta rock - Continue ASA/Plavix (10) Dementia Diagnosis: Secondary Plan: Dementia, at high risk for delirium - Continue home trazodone as needed for sleep - Delirium precautions (11) FEN/PPX Diagnosis: Secondary Plan: Fluids: use with caution Elecs: Monitor and replete PRN Nutrition: Diet regular basic, Nepro supplementation DVT: Lovenox [address] [facility] Procedures Hemodialysis Brief History 89 yo female with PMH of CHF with last echo 2014 showing EF 35%, ESRD on dialysis TTS, CAD s/p stenting, sacral decubitus ulcers presenting with altered mental status after being found down. Unclear per report how long patient was down for. Patient severely demented at baseline in addition to current altered mental status and unable to provide history. CBC/BMP: 12/18/16 0602 12/18/16 0602 Significant Findings Laboratory Tests Test 12/15/16 12/15/16 12/16/16 12/17/16 17:50 22:41 07:11 06:00 Troponin I 0.06 NG/ML 0.06 NG/ML (0.02-0.05) (0.02-0.05) 25-Hydroxy Vitamin D Total 28.7 ng/ML (30-100) Parathyroid Hormone (Intact) 86.5 PG/ML (12.4-76.8) White Blood Count 14.2 TH/MM3 17.3 TH/MM3 (4.0-11.0) (4.0-11.0) Red Blood Count 2.50 MIL/MM3 2.52 MIL/MM3 (4.00-5.30) (4.00-5.30) Hemoglobin 7.3 GM/DL 7.7 GM/DL (11.6-15.3) (11.6-15.3) Hematocrit 23.1 % 23.3 % (35.0-46.0) (35.0-46.0) Mean Corpuscular Hemoglobin 31.4 % Concent (32.0-36.0) Red Cell Distribution Width 17.7 % (11.6-17.2) Platelet Count 464 TH/MM3 488 TH/MM3 (150-450) (150-450) Mean Platelet Volume 6.1 FL 6.4 FL (7.0-11.0) (7.0-11.0) Neutrophils (%) (Auto) 80.1 % (16.0-70.0) Lymphocytes (%) (Auto) 8.4 % (9.0-44.0) Monocytes (%) (Auto) 8.7 % (0.0-8.0) Neutrophils # (Auto) 11.4 TH/MM3 (1.8-7.7) Monocytes # (Auto) 1.2 TH/MM3 (0-0.9) Creatinine 3.35 MG/DL 2.97 MG/DL (0.50-1.00) (0.50-1.00) Estimat Glomerular Filtration 13 ML/MIN (>89) 15 ML/MIN (>89) Rate Random Glucose 64 MG/DL (74-106) Calcium Level 8.0 MG/DL 8.0 MG/DL (8.5-10.1) (8.5-10.1) Sodium Level 134 MEQ/L (136-145) Potassium Level 3.4 MEQ/L (3.5-5.1) Chloride Level 96 MEQ/L (98-107) Iron Level 22 MCG/DL (50-170) Total Iron Binding Capacity 150 MCG/DL (250-450) Percent Iron Saturation 14.7 % (20-50) Test 12/18/16 06:02 White Blood Count 18.2 TH/MM3 (4.0-11.0) Red Blood Count 2.09 MIL/MM3 (4.00-5.30) Hemoglobin 6.3 GM/DL (11.6-15.3) Hematocrit 19.7 % (35.0-46.0) Red Cell Distribution Width 17.4 % (11.6-17.2) Mean Platelet Volume 6.3 FL (7.0-11.0) Neutrophils (%) (Auto) 81.2 % (16.0-70.0) Lymphocytes (%) (Auto) 8.0 % (9.0-44.0) Monocytes (%) (Auto) 9.2 % (0.0-8.0) Neutrophils # (Auto) 14.8 TH/MM3 (1.8-7.7) Monocytes # (Auto) 1.7 TH/MM3 (0-0.9) Sodium Level 133 MEQ/L (136-145) Chloride Level 95 MEQ/L (98-107) Blood Urea Nitrogen 32 MG/DL (7-18) Creatinine 4.07 MG/DL (0.50-1.00) Estimat Glomerular Filtration 10 ML/MIN (>89) Rate Calcium Level 8.0 MG/DL (8.5-10.1) PE at Discharge GENERAL: Lying in bed comfortably and in no acute distress, answers yes or no questions SKIN: Stage 2-3 sacral decubitus ulcer (dressing changed 12/14, sees wound care), stage 2-3 pressure ulcer R posterior calf, healing. Skin abrasion over L anterior warren. Several bruises over shins and forearms in various stages of healing. CARDIOVASCULAR: Normal rate, irregularly irregular rhythm. Normal S1/S2. No MRG RESPIRATORY: CTAB, no crackles or wheezes MUSCULOSKELETAL: Extremities without clubbing, cyanosis, or edema. Wounds as documented above. Hospital Course 89 yo female with PMH of CHF with last echo 2014 showing EF 35%, ESRD on dialysis TTS, CAD s/p stenting, sacral decubitus ulcers presenting with altered mental status after being found down at senior care. Unclear per report how long patient was down for. Patient with dementia at baseline in addition to current altered mental status. She was found to have leukocytosis with catheterized urine showing bacteria and leukocyte esterase. Troponin and EKG unremarkable. Chest x-ray shows CHF but no acute process. She was treated with Levaquin 500 mg q48hrs (renally dosed). She received hemodialysis per her usual Sunday, , and Sunday schedule and nephrology was consulted. Multiple ulcers were noted that her chronic for her, and the sacral ulcer was treated with daily dressing changes with Santyl application. The other ulcers were kept clean and dry. Mental status is back to her baseline. Urine culture showed likely contaminants, but she was treated with full course of Levaquin as the urinalysis was a catheterized sample and she had leukocytosis. Plan is to discharge her back to senior care. She will continue her usual medications and hemodialysis upon discharge. No new medications added besides Santyl for her sacral ulcer. Pt Condition on Discharge: Stable Discharge Disposition: Discharge to SNF Discharge Instructions DIET: Follow Instructions for: As Tolerated, No Restrictions Speech Therapy-Diet Recommends: Regular Additional Diet Instructions: supplement with Nepro Activities you can perform: Weight Bearing as Mack Other Activity Instructions: Requires assistance with ambulation, requires fall precautions Follow up Referrals: Nephrology - 1 Week PCP Follow-up - 1 Week New Medications: Collagenase (Santyl) 250 Unit/Gm Oin 1 APPLIC TOPICAL DAILY Apply to sacral ulcer only once a day with daily dressing changes #1 TUBE Continued Medications: Amlodipine (Amlodipine) 5 Mg Tab 5 MG PO DAILY Blood Pressure Management #[address] (Aspirin 81) 81 Mg Tabdr 81 MG PO DAILY Ref 0 TAB B-Complex W/ C & Folic Acid (Nephro-Donald) 1 Tab 1 TAB PO DAILY Nutritional Supplement #30 Ref 0 TAB Bisacodyl Supp (Dulcolax Supp) 10 Mg Supp 10 MG RECTAL DAILY PRN CONSTIPATION #12 Ref 0 SUPP Calcium Acetate (Phosphate Binder) (Phoslo) 667 Mg Cap 667 MG PO TID Hyperphosphatemia #90 Ref 0 CAP Carvedilol (Coreg) 3.125 Mg Tab 3.125 MG PO Q12HR #60 TAB Cholecalciferol (Vitamin D3) 2,000 Unit Chew 2000 UNITS CHEW DAILY #1 BOTTLE Clopidogrel (Plavix) 75 Mg Tab 75 MG PO DAILY Blood Clot Prevention #30 Ref 0 TAB Furosemide (Lasix) 20 Mg Tab 20 MG PO DAILY #30 Ref 0 TAB Ipratropium HFA 12.9 GM Inh (Atrovent HFA 12.9 GM Inh) 17 Mcg/Act Aer 2 PUFF INH Q6HR PRN SHORTNESS OF BREATH #1 Ref 0 INHALER Ipratropium Nasal (Ipratropium Nasal) Unknown Strength Bolton Unknown Dose UNITS Latanoprost Opth Drops (Xalatan Opth Drops) 0.005% Drops 1 DROP EACH EYE HS Glaucoma #2.5 Ref 0 ML Levothyroxine (Levothyroxine) 112 Mcg Tab 112 MCG PO DAILY #30 Ref 0 TAB Lovastatin (Lovastatin) 40 Mg Tab 40 MG PO DAILY Cholesterol Management #30 Ref 0 TAB Nutritional Supplements (Nepro) 1 Liq Liq 1 CAN PO DAILY Ondansetron (Zofran) 4 Mg Tab 4 MG PO Q8HR PRN NAUSEA OR VOMITING #30 Ref 0 TAB Polyethylene Glycol 3350 Powder (Miralax Powder) 17 Gm Powd 17 GM PO DAILY Mix and dissolve one measuring cap-ful (17 grams) in water or juice. Constipation #1 Ref 0 BOTTLE Ranitidine (Zantac 75) 75 Mg Tab 75 MG PO DAILY Take 30 to 60 minutes before eating food or drinking beverages that cause heartburn. Heartburn #30 Ref 0 TAB Sennosides-Docusate Sodium (Polly-Colace) 8.6-50 Mg Tab 2 TAB PO BID PRN Constipation #60 Ref 0 TAB Trazodone (Trazodone) 50 Mg Tab 50 MG PO HS Insomnia #30 Ref 0 TAB Vitamin B Cmplx/Vit C/Folic AC (Nephro-Donald Rx) Unknown Strength Tab Unknown Dose PO TAB Walker/Adult/Folding (Walker/Adult/Folding) 1 Mis Mis 1 EA .ROUTE DIRECTED #1 Ref 0 EA Albaro Julio MD R2 Dec 18, 2016 08:53
[2016-12-18] MEDS: CLOPIDOGREL 75 MG TAB PO SCH (08:55)
[2016-12-18] MEDS: COLLAGENASE OINT 30 GM TUBE TOPICAL SCH (08:56)
[2016-12-18] MEDS: NUTRITIONAL SUPPLEMENTS PO SCH (09:00)
[2016-12-18] MEDS: ENOXAPARIN SODIUM 30 MG/0.3 ML SYRINGE SQ SCH (09:00)
[2016-12-18] MEDS: CHOLECALCIFEROL (VIT D3) 1000 UNIT TAB PO SCH (09:00)
[2016-12-18] MEDS: ASPIRIN EC 81 MG TABEC PO SCH (09:00)
[2016-12-18] MEDS: CALCIUM ACETATE 667 MG CAP PO SCH ×2 (09:00→18:00)
[2016-12-18] MEDS: PRAVASTATIN SOD 40 MG TAB PO SCH (09:00)
[2016-12-18] MEDS: FAMOTIDINE 20 MG TAB PO SCH (09:00)
[2016-12-18] MEDS: CARVEDILOL 3.125 MG TAB PO SCH (09:00)
[2016-12-18] MEDS: FUROSEMIDE 20 MG TAB PO SCH (09:00)
[2016-12-18] MEDS: amLODIPine BESYLATE 5 MG TAB PO SCH (09:00)
[2016-12-18] MEDS: POLYETHYLENE GLYCOL 17 GM PKG PO SCH (09:00)
[2016-12-18] MEDS: VITAMIN B CMPLX/VITC/FOLIC AC CAP PO SCH (09:00)
--- NOTE | 2016-12-18 10:45 | HHI.NPPN ---
Subjective History of Present Illness The patient is am 89 yo [place] female who is known to our services for ESRD on HD. She was brought to this facility as she was found on the floor of her NH. She is altered at the present, so no other information can be gathered. She has multiple abrasions on her LEs and her mouth is covered in blood. Uncertain if she bit her tongue. Imaging and labs reviewed. Appears she may have a UTI. Last HD yesterday---on TTS schedule. Interval History Pt laying in bed. Rouses to stimulation and opens eyes, but does not speak ( Gaviota Nicholson) Review of Systems General General Remarks Not obtainable today (Gaviota Nicholson) Objective Data Data 12/17/16 12/18/16 19:00 07:00 Intake Total 345 ml 320 ml Output Total 0 ml Balance 345 ml 320 ml Intake Oral 120 ml 120 ml IV Total 225 ml 200 ml Output Urine Total 0 ml # Voids 2 0 # Bowel Movements 1 1 Vital Signs Date Time Temp Pulse Resp B/P Pulse Ox O2 Delivery O2 Flow Rate FiO2 12/18/16 09:39 20 12/18/16 09:00 98 21 12/18/16 08:00 97.7 100 20 110/55 98 12/18/16 04:00 98.2 95 18 108/59 100 12/18/16 00:00 97.9 99 16 108/58 95 12/17/16 20:42 93 21 12/17/16 20:00 98.2 100 18 105/55 97 12/17/16 19:58 90 12/17/16 17:08 102 12/17/16 16:03 97.7 101 20 90/51 96 12/17/16 12:04 97.7 102 20 104/56 98 (Gaviota Nicholson) -: 12/18/16 0602 12/18/16 0602 Medication Review Current Medications Medications (Trade) Dose Ordered Sig/Tavares Route Start Time Stop Time Status Last Admin (NS Flush) 2 ml UNSCH PRN IV FLUSH 12/15/16 07:45 (NS Flush) 2 ml BID IV FLUSH 12/15/16 09:00 12/18/16 08:53 Enoxaparin Sodium 30 mg 30 mg Q24H SQ 12/15/16 09:00 12/17/16 09:19 (Levaquin 500 Mg Premix Inj) 100 ml @ 100 mls/hr Q48H IV 12/16/16 08:00 12/18/16 08:45 (Norvasc) 5 mg DAILY PO 12/15/16 09:00 12/17/16 09:21 (Ecotrin Ec) 81 mg DAILY PO 12/15/16 09:00 12/17/16 09:21 (Dulcolax Supp) 10 mg DAILY PRN RECTAL 12/15/16 08:00 12/17/16 21:47 (Phoslo) 667 mg TID PO 12/15/16 09:00 12/17/16 18:06 (Coreg) 3.125 mg Q12HR PO 12/15/16 09:00 12/17/16 21:07 (Plavix) 75 mg DAILY PO 12/15/16 09:00 12/18/16 08:55 (Lasix) 20 mg DAILY PO 12/15/16 09:00 12/17/16 09:20 (Xalatan 0.005% Opth Soln) 1 drop HS EACH EYE 12/15/16 21:00 12/17/16 21:08 (Synthroid) 112 mcg DAILY@06 PO 12/15/16 08:09 12/18/16 06:00 (Pravachol) 40 mg DAILY PO 12/15/16 09:00 12/17/16 09:21 (Miralax) 17 gm DAILY PO 12/15/16 09:00 12/17/16 09:21 (Polly-Colace) 2 tab BID PRN PO 12/15/16 08:00 (Desyrel) 50 mg HS PO 12/15/16 21:00 12/17/16 21:07 (Nephrocaps) 1 cap DAILY PO 12/15/16 09:00 12/17/16 09:20 (Vitamin D3) 2,000 units DAILY PO 12/15/16 09:00 12/17/16 09:20 Non-Formulary Medication 1 can DAILY PO 12/15/16 09:00 12/17/16 09:39 (Zofran Odt) 4 mg Q8HR PRN PO 12/15/16 08:00 (Pepcid) 10 mg DAILY PO 12/15/16 09:00 12/17/16 09:20 (Ofirmev Inj) 1,000 mg Q6H IV 12/15/16 15:00 12/18/16 08:51 Collagenase 1 applic 1 applic DAILY TOPICAL 12/16/16 09:00 12/18/16 08:56 (NS 1000 ml Inj) 1,000 ml @ 0 mls/hr Q0M PRN IV 12/15/16 16:49 12/16/16 14:04 Heparin Sodium (Porcine) 8000 units 8,000 units UNSCH PRN IVF 12/15/16 17:00 Sodium Chloride 1,000 ml @ 200 mls/hr Q5H PRN IV 12/15/16 16:49 (NS 1000 ml Inj) 1,000 ml @ 0 mls/hr Q0M PRN IV 12/15/16 16:49 (Mannitol Inj) 12.5 gm UNSCH PRN IV 12/15/16 17:00 (Albumin 25% Inj) 25 gm UNSCH PRN IV 12/15/16 17:00 (NS Flush) 5 ml UNSCH PRN IV FLUSH 12/15/16 17:00 (Heparin Inj) UNSCH PRN .XX 12/15/16 17:00 (Gentamicin (Dialysis) Inj) 20 mg UNSCH PRN IV 12/15/16 17:00 (Zofran Inj) 4 mg UNSCH PRN IV 12/15/16 17:00 (Tylenol) 650 mg UNSCH PRN PO 12/15/16 17:00 (Benadryl) 25 mg UNSCH PRN PO 12/15/16 17:00 (Nitrostat Sl) 0.4 mg UNSCH PRN SL 12/15/16 17:00 (Catapres) 0.1 mg UNSCH PRN PO 12/15/16 17:00 (Gelfoam 12 Mm/7 Mm Top) 1 foam UNSCH PRN TOP 12/15/16 17:00 12/16/16 14:03 Epoetin Adrián 10193 units 10,000 units 2XWEEK SQ 12/16/16 17:00 (Venofer Inj/NS Inj) 105 ml @ 105 mls/hr DAILY IV 12/18/16 09:00 12/20/16 09:59 12/18/16 08:52 (Gaviota Nicholson) Physical Exam General Appearance: Malnourished (Gaviota Nicholson) Eyes Eye Exam: Sclera White (Gaviota Nicholson) Neck Neck Exam: Trachea Midline (Gaviota Nicholson) Pulmonary Resp Exam: Clear Bilaterally, Breath Sounds Equal, No Distress (Gaviota Nicholson) Cardiology CV Exam: Regular (Gaviota Nicholson) Gastrointestinal/Abdomen GI Exam: Soft, Non-Tender (Gaviota Nicholson) Integumentary Skin Exam: Clear, Warm (Gaviota Nicholson) Neurologic Neuro Exam: Awake, Moving All Extremities (Gaviota Nicholson) Assessment/Plan Problem List: (1) ESRD (end stage renal disease) on dialysis Plan: Continue HD TTS as scheduled Mentation appears at baseline However she is still severely debilitated and long-term prognosis is poor in my opinion. Continue with dialytic support as per patient and family's wishes. Opinion is is that hospice will have to be considered without dialysis at some point in the not too distant future when it no longer appears to be contributing significantly to her quality of life for her remaining time. Medications should be adjusted for the patient's ESRD. Avoid gadolinium (2) Altered mental status Plan: w/u in progress Advancing dementia? Delirium? UTI? (3) Urinary tract infection Plan: Abx deferred to primary (4) Failure to thrive in adult Plan: Ongoing these last several months. Patient has been requesting to come off the dialysis machine early as an outpatient during her treatment but still indicated recently that she wanted to continue dialysis. She was advised however by being noncompliant with her dialysis treatments her overall prognosis is significantly reduced. (5) Anemia of renal disease Plan: Receiving Venofer Hgb at 6.3. Will need transfusion---defer to primary ? GIB w/u (Gaviota Nicholson) Plan The exam, history, and the medical decision-making described in the above note were completed with the assistance of the PAMartha. I reviewed and agree with the findings presented. (Pio Morton MD) Problem Qualifiers (1) Altered mental status: Qualified Code: R41.0 - Delirium (2) Urinary tract infection: Qualified Code: N30.00 - Acute cystitis without hematuria Gaviota Nicholson Dec 18, 2016 10:45 Pio Morton MD Dec 20, 2016 17:16
[2016-12-18] MEDS ORDERED: DOCUSATE SODIUM 50 MG/SENNA 8.6 MG TAB PO ONE (11:00)
[2016-12-18 14:27] LABS: REVIEW FLAG FINAL
[2016-12-18 14:30] LABS: HEMATOCRIT 15.6 % (35.0-46.0)
[2016-12-18] MEDS ORDERED: SODIUM CHLOR 0.9% 250 ML INJ 250 ML IV ONE ×2 (14:45→16:45)
--- NOTE | 2016-12-18 15:19 | HHI.FPPN ---
Addendum to progress note ADDENDUM Reason for addendum: Additonal documentation Additional information Residents notified about hemoglobin of 5.0. Hemoglobin was 6.3 at 6 AM today. We suspected at the time that it was due to anemia of chronic disease, as she has chronically low hemoglobin in the setting of ESRD. However, repeat hemoglobin was 5.0, and nurse reports that she had a large bowel movement that was purplish in color. Her blood pressures at baseline are MAP of 75, but her blood pressure now is 86/48 with MAP of 61. Pulse is 99. We evaluated the patient at the bedside. She is at baseline cognitively. She reports no abdominal pain. She reports no pain. She states that she feels normal. No lightheadedness or shortness of breath. No chest pain. Vitals: 97.7 99 20 86/48 100 Physical exam: General: No distress, appears pale Skin: Pale HEENT: Pale conjunctiva, normocephalic heart: RRR, pulses normal Lungs: No crackles Ext: No edema Labs: Hemoglobin 5.0 Hct: 15.6 Assessment: 89 year old female with multiple comorbidities, including CHF, ESRD , CAD with stenting, sacral decubitus ulcer, here after fall and altered mental status. Now with suspected acute GI bleed, with decreasing blood pressures. Asymptomatic clinically. Plan: - Stat consults to GI and critical care - Pantoprazole 40 mg IV q12hrs - Transfuse 3 units PRBC - NS bolus of 250 mls, watch fluid status closely - Serial H&H's Had discussion with son, who is power of deputy commonwealth's attorney for the patient. He consents to emergent scoping to determine source of bleeding. If a procedure is required , he wants to be called first before proceeding. He is OK with intubation for an acute lifesaving procedure. He wants her to remain DNR if there is cardiac arrest, i.e. no intubation or chest compressions. Seen and discussed with Dr. La, Dr. Crowe, Dr. Jayson Julio,Albaro Patel MD R2 Dec 18, 2016 15:18
[2016-12-18 15:40] LABS: REVIEW FLAG FINAL
[2016-12-18 15:42] LABS: HEMATOCRIT 12.4 % (35.0-46.0)
[2016-12-18] MEDS ORDERED: PANTOPRAZOLE SODIUM 40 MG VIAL IV PUSH SCH (16:00)
--- NOTE | 2016-12-18 17:15 | PD.CONS ---
HPI Service Critical Care Medicine Consult Requested By Family medicine team Reason for Consult active gi bleeding Primary Care Physician Non-Staff History of Present Illness This is an 89yF with history of congestive heart failure with a prior EF of 35% , end-stage renal disease on HD who initially presented to the hospital with urinary tract infection. She was actually scheduled to be discharged today when she had a significant hemoglobin drop from 7.7 --> 6.3, rechecked and was down to 5. At that time, she did not have any overt signs of bleeding. However , this afternoon she had a large melanotic bowel movement and became hemodynamically unstable with SBP in the 80s, and felt very fatigued. A rapid response was called. I immediately evaluated the patient. She was diaphoretic and hypotensive. very pale appearing. We immediately ordered 2 units uncrossmatched emergency release blood from the blood bank, and we transferred her emergently to the ICU. At this point, she also had no iv access. Vascular access team was at bedside and placed an 18g piv for us. I additionally placed a second 18g piv so we could maintain 2 large bore piv access at all times. Unfortunately, due to the hemodynamically unstable nature of the patient, additional information is unobtainable from the patient. The family medicine team did talk with her son and medical decision maker, and he stated that he wanted to keep the DNR status in place. He did say that transient intubation for a GI procedure would be acceptable for her as long as long-term ventilation was not considered. We will proceed with medically aggressive care with DNR in place and intubation only for procedures. Review of Systems ROS Limitations: Clinical Condition Past Family Social History Allergies: Coded Allergies: [place] (Verified Allergy, Severe, Confusion, 12/15/16) violent behavior Dilaudid (Verified Allergy, Unknown, confusion, 12/15/16) violent behavior Morphine (Verified Allergy, Unknown, confusion, 12/15/16) violent behavior Adhesives (Verified Adverse Reaction, Severe, 11/14/16) Denies hives from tape, states, "I have very thin skin and the adhesive tears my skin." Penicillin (Verified Adverse Reaction, Intermediate, NAUSEA, 11/14/16) States, "I am taking an antibiotic in the Penicillin family right now without any problem. They give me nausea medicine." Past Medical History Patient is too hemodynamically unstable to provide a past medical history. 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 Per chart review: Tricuspid valve replacement AV fistula for dialysis placement -CABG, stenting -fem pop bypass graft? Reported Medications Patient is too hemodynamically unstable to provide a home medication list. Per chart review: Trazodone (Trazodone HCl) 50 Mg Tab 50 Mg PO HS Zantac 75 (Ranitidine HCl) 75 Mg Tab 75 Mg PO DAILY Coreg (Carvedilol) 3.125 Mg Tab 3.125 Mg PO Q12HR Amlodipine (Amlodipine Besylate) 5 Mg Tab 5 Mg PO DAILY Dulcolax Supp (Bisacodyl) 10 Mg Supp 10 Mg RECTAL DAILY PRN Vitamin D3 (Cholecalciferol) 2,000 Unit Chew 2,000 Units CHEW DAILY Plavix (Clopidogrel Bisulfate) 75 Mg Tab 75 Mg PO DAILY Lasix (Furosemide) 20 Mg Tab 20 Mg PO DAILY Miralax Powder (Polyethylene Glycol 3350 Powder) 17 Gm Powd 17 Gm PO DAILY Zofran (Ondansetron HCl) 4 Mg Tab 4 Mg PO Q8HR PRN Phoslo (Calcium Acetate (Phosphate Binder)) 667 Mg Cap 667 Mg PO TID Polly-Colace (Sennosides-Docusate Sodium) 8.6-50 Mg Tab 2 Tab PO BID PRN Lovastatin 40 Mg Tab 40 Mg PO DAILY Levothyroxine (Levothyroxine Sodium) 112 Mcg Tab 112 Mcg PO DAILY Atrovent HFA 12.9 GM Inh (Ipratropium [place]) 17 Mcg/Act Aer 2 Puff INH Q6HR PRN Nepro (Nutritional Supplements) 1 Liq Liq 1 Can PO DAILY Xalatan Opth Drops (Latanoprost) 0.005% Drops 1 Drop EACH EYE HS Nephro-Donald (B-Complex W/ C & Folic Acid) 1 Tab 1 Tab PO DAILY Aspirin 81 (Aspirin) 81 Mg Tabdr 81 Mg PO DAILY Ipratropium Nasal Unknown Strength [place] Unknown Dose Nephro-Donald Rx (Vitamin B Cmplx/Vit C/Folic AC) Unknown Strength Tab Unknown Dose PO Active Ordered Medications See MAR Family History Family History Non-contributory Social History Patient is to hemodynamically unstable to provide a detailed past social history. Per chart review: Marrital Status: Living Situation: Long-term care resident at [facility] Tobacco: None Alcohol: None Illicit drug use: none Physical Exam Vital Signs Vital Signs Date Time Temp Pulse Resp B/P Pulse Ox O2 Delivery O2 Flow Rate FiO2 12/18/16 12:00 97.7 99 20 86/48 100 12/18/16 09:39 20 12/18/16 09:00 98 21 12/18/16 08:00 97.7 100 20 110/55 98 12/18/16 04:00 98.2 95 18 108/59 100 12/18/16 00:00 97.9 99 16 108/58 95 12/17/16 20:42 93 21 12/17/16 20:00 98.2 100 18 105/55 97 12/17/16 19:58 90 12/17/16 17:08 102 Physical Exam GENERAL: Frail, elderly lady, in severe distress, very pale appearing HEENT: Normocephalic. Atraumatic. Pupils equal, round, reactive, conjugate. Mucous membranes are dry. Conjunctiva are pale. NECK: No JVD. Trachea is midline. CHEST: Mildly tachypneic. Clear to auscultation. CARDIOVASCULAR: Normal rate, regular rhythm. No appreciable murmurs. Blood pressure still low 80s systolic ABDOMEN: Soft, nontender, nondistended. No guarding. There is large amount of melanotic stool which is liquid in consistency coming from her rectum. MUSCULOSKELETAL: No peripheral edema. Distal pulses 1+. NEUROLOGICAL: RASS -1. Follows commands. Laboratory Laboratory Tests Test 12/18/16 12/18/16 12/18/16 12/18/16 06:02 13:58 15:09 15:25 White Blood Count 18.2 Red Blood Count 2.09 Hemoglobin 6.3 5.0 4.2 Hematocrit 19.7 15.6 12.4 Mean Corpuscular Volume 94.1 Mean Corpuscular Hemoglobin 30.3 Mean Corpuscular Hemoglobin 32.2 Concent Red Cell Distribution Width 17.4 Platelet Count 370 Mean Platelet Volume 6.3 Neutrophils (%) (Auto) 81.2 Lymphocytes (%) (Auto) 8.0 Monocytes (%) (Auto) 9.2 Eosinophils (%) (Auto) 1.1 Basophils (%) (Auto) 0.5 Neutrophils # (Auto) 14.8 Lymphocytes # (Auto) 1.5 Monocytes # (Auto) 1.7 Eosinophils # (Auto) 0.2 Basophils # (Auto) 0.1 CBC Comment AUTO DIFF Differential Comment AUTO DIFF CONFIRMED Sodium Level 133 Potassium Level 4.3 Chloride Level 95 Carbon Dioxide Level 27.6 Anion Gap 10 Blood Urea Nitrogen 32 Creatinine 4.07 Estimat Glomerular Filtration 10 Rate Random Glucose 101 Calcium Level 8.0 Ferritin 1270 Crossmatch Leukocyte-Reduced Red Blood Cells Blood Bank Comment Test 12/18/16 15:26 Blood Type A POSITIVE Antibody Screen NEGATIVE Crossmatch Leukocyte-Reduced Red Blood Cells Blood Bank Comment Date/Time Procedure Status Source Growth 12/18/16 14:30 Stool Occult Blood ([facility]AL[facility]) Received Stool Stool Pending 12/15/16 09:10 Aerobic Blood Culture - Preliminary Resulted Blood Peripheral NO GROWTH IN 3 DAYS 12/15/16 09:10 Anaerobic Blood Culture - Preliminary Resulted Blood Peripheral NO GROWTH IN 3 DAYS 12/15/16 05:40 Urine Culture - Final Complete Urine Catheterized Urine 50-100,000 CFU/ML MIXED GRAM POSITIVE... Result Diagram: 12/18/16 1525 12/18/16 0602 Assessment and Plan Assessment and Plan Assessment: This is an 89-year-old female with ESRD and active GI bleed, likely upper in source. She is hemodynamically unstable and critical at this time. Active Problems: Active Upper GI Bleed Stage IV hemorrhagic shock Anemia secondary to acute blood loss Uremic platelet dysfunction Plan: -- stat GI consult -- npo -- iv bid ppi -- 4 units prbc, 2 units ffp empirically for hemorrhagic shock (First 2 emergency release uncrossmatched) -- stat type and screen -- serial H&H -- DDAVP 0.3 mcg/kg iv over 10 mins for uremic platelet dysfunction. -- 2 large bore piv at all times. if we have problems obtaining access, we may need to use the fistula for blood product administration for emergent hypotension and shock. This patient remains critically ill with one or more organ systems which are or may become a threat to life. This note represents the time that I spent in the care and management of this patient, from the time I evaluated the patient rapid response, through transport to the intensive care unit, and ongoing management and active resuscitation and blood products in the intensive care unit. I have spent in excess of 107 minutes discontinuously in the care and management of this patient. This time is exclusive of procedures, and includes , but is not limited to, evaluation of the patient, review of the medical record , discussions with family, consultants, nursing staff, or respiratory therapy, and documentation in the medical record. Jeremy Crowe MD Dec 18, 2016 17:14
--- NOTE | 2016-12-18 17:41 | PD.CONS ---
HPI History of Present Illness This is a 89 year old PMH of CHF with last echo 2014 showing EF 35%, ESRD on dialysis TTS, CAD s/p stenting, sacral decubitus ulcers who was brought here for altered mental status after being found down. Unclear per report how long patient was down for. Patient severely demented at baseline in addition to current altered mental status and unable to provide history. Patient was halicated earlier due to hypotension, gi bleed, low hgb. Currently patient has hgb of 4.2. She is actively bleeding, this started yesterday, described as constant oozing, significant bleed at times, dark maroon stools. She had 7 units of blood ordered, and 2 FFP, this has already started. HPI obtained from nurses and medical chart. PFSH Past Medical History CHF with last echo 2014 showing EF 35%, ESRD on dialysis TTS, CAD s/p stenting, sacral decubitus ulcers Past Surgical History Not able to obtain Coded Allergies: [place] (Verified Allergy, Severe, Confusion, 12/15/16) violent behavior Dilaudid (Verified Allergy, Unknown, confusion, 12/15/16) violent behavior Morphine (Verified Allergy, Unknown, confusion, 12/15/16) violent behavior Adhesives (Verified Adverse Reaction, Severe, 11/14/16) Denies hives from tape, states, "I have very thin skin and the adhesive tears my skin." Penicillin (Verified Adverse Reaction, Intermediate, NAUSEA, 11/14/16) States, "I am taking an antibiotic in the Penicillin family right now without any problem. They give me nausea medicine." Medications Current Medications Medications (Trade) Dose Ordered Sig/Tavares Route Start Time Stop Time Status Last Admin (NS Flush) 2 ml UNSCH PRN IV FLUSH 12/15/16 07:45 Sodium Chloride 2 ml 2 ml BID IV FLUSH 12/15/16 09:00 12/18/16 08:53 (Levaquin 500 Mg Premix Inj) 100 ml @ 100 mls/hr Q48H IV 12/16/16 08:00 12/18/16 08:45 (Norvasc) 5 mg DAILY PO 12/15/16 09:00 Hold 12/17/16 09:21 (Ecotrin Ec) 81 mg DAILY PO 12/15/16 09:00 12/17/16 09:21 (Dulcolax Supp) 10 mg DAILY PRN RECTAL 12/15/16 08:00 12/17/16 21:47 (Phoslo) 667 mg TID PO 12/15/16 09:00 12/17/16 18:06 (Coreg) 3.125 mg Q12HR PO 12/15/16 09:00 Hold 12/17/16 21:07 (Plavix) 75 mg DAILY PO 12/15/16 09:00 Hold 12/18/16 08:55 (Lasix) 20 mg DAILY PO 12/15/16 09:00 Hold 12/17/16 09:20 (Xalatan 0.005% Opth Soln) 1 drop HS EACH EYE 12/15/16 21:00 12/17/16 21:08 (Synthroid) 112 mcg DAILY@06 PO 12/15/16 08:09 12/18/16 06:00 (Pravachol) 40 mg DAILY PO 12/15/16 09:00 12/17/16 09:21 (Miralax) 17 gm DAILY PO 12/15/16 09:00 12/17/16 09:21 (Polly-Colace) 2 tab BID PRN PO 12/15/16 08:00 (Desyrel) 50 mg HS PO 12/15/16 21:00 12/17/16 21:07 (Nephrocaps) 1 cap DAILY PO 12/15/16 09:00 12/17/16 09:20 (Vitamin D3) 2,000 units DAILY PO 12/15/16 09:00 12/17/16 09:20 Non-Formulary Medication 1 can DAILY PO 12/15/16 09:00 12/17/16 09:39 (Zofran Odt) 4 mg Q8HR PRN PO 12/15/16 08:00 (Ofirmev Inj) 1,000 mg Q6H IV 12/15/16 15:00 12/18/16 08:51 Collagenase 1 applic 1 applic DAILY TOPICAL 12/16/16 09:00 12/18/16 08:56 (NS 1000 ml Inj) 1,000 ml @ 0 mls/hr Q0M PRN IV 12/15/16 16:49 12/16/16 14:04 Heparin Sodium (Porcine) 8000 units 8,000 units UNSCH PRN IVF 12/15/16 17:00 Hold Sodium Chloride 1,000 ml @ 200 mls/hr Q5H PRN IV 12/15/16 16:49 (NS 1000 ml Inj) 1,000 ml @ 0 mls/hr Q0M PRN IV 12/15/16 16:49 (Mannitol Inj) 12.5 gm UNSCH PRN IV 12/15/16 17:00 (Albumin 25% Inj) 25 gm UNSCH PRN IV 12/15/16 17:00 (NS Flush) 5 ml UNSCH PRN IV FLUSH 12/15/16 17:00 (Heparin Inj) UNSCH PRN .XX 12/15/16 17:00 (Gentamicin (Dialysis) Inj) 20 mg UNSCH PRN IV 12/15/16 17:00 (Zofran Inj) 4 mg UNSCH PRN IV 12/15/16 17:00 (Tylenol) 650 mg UNSCH PRN PO 12/15/16 17:00 (Benadryl) 25 mg UNSCH PRN PO 12/15/16 17:00 (Nitrostat Sl) 0.4 mg UNSCH PRN SL 12/15/16 17:00 Hold (Catapres) 0.1 mg UNSCH PRN PO 12/15/16 17:00 Hold Gelatin 1 foam 1 foam UNSCH PRN TOP 12/15/16 17:00 12/16/16 14:03 (Venofer Inj/NS Inj) 105 ml @ 105 mls/hr DAILY IV 12/18/16 09:00 12/20/16 09:59 12/18/16 08:52 Epoetin Adrián 79133 units 10,000 units TuTh SQ 12/19/16 17:00 (NS 250 ml Inj) 250 ml @ 15 mls/hr ONCE ONCE IV 12/18/16 14:45 12/19/16 07:24 Pantoprazole Sodium 40 mg 40 mg Q12H IV PUSH 12/18/16 16:00 12/18/16 17:21 Desmopressin Acetate 15 mcg/ Sodium Chloride 53.75 ml @ 100.5 mls/ hr STAT ONCE IV 12/18/16 18:00 12/18/16 18:32 12/18/16 17:14 (NS 250 ml Inj) 250 ml @ 15 mls/hr ONCE ONCE IV 12/18/16 16:45 12/19/16 09:24 12/18/16 17:15 Family History Non contributory Social History Negative X 3 Review of Systems Constitutional: DENIES: Fatigue, Chills Eyes: DENIES: Photosensitivity Respiratory: DENIES: Shortness of breath Cardiovascular: DENIES: Lower Extremity Edema Gastrointestinal: COMPLAINS OF: Black stools, Bloody stools, DENIES: Abdominal pain, Nausea, Vomiting, Difficulty Swallowing, Heartburn, Hematemesis Genitourinary: DENIES: Hematuria Musculoskeletal: DENIES: Joint Swelling Hematologic/lymphatic: COMPLAINS OF: Bruising Immunologic/allergic: DENIES: Eczema Psychiatric: DENIES: Anxiety ROS Patient is demented, this was obtained from nurses GI Exam Vitals I&O Vital Signs Date Time Temp Pulse Resp B/P Pulse Ox O2 Delivery O2 Flow Rate FiO2 12/18/16 12:00 97.7 99 20 86/48 100 12/18/16 09:39 20 12/18/16 09:00 98 21 12/18/16 08:00 97.7 100 20 110/55 98 12/18/16 04:00 98.2 95 18 108/59 100 12/18/16 00:00 97.9 99 16 108/58 95 12/17/16 20:42 93 21 12/17/16 20:00 98.2 100 18 105/55 97 12/17/16 19:58 90 I/O 12/17/16 12/17/16 12/17/16 12/18/16 12/18/16 12/18/16 07:00 15:00 23:00 07:00 15:00 23:00 Intake Total 200 ml 345 ml 100 ml 220 ml Output Total 0 ml Balance 200 ml 345 ml 100 ml 220 ml Intake Oral 100 ml 120 ml 0 ml 120 ml IV Total 100 ml 225 ml 100 ml 100 ml Output Urine Total 0 ml # Voids 0 2 0 # Bowel Movements 0 1 0 1 Imaging Last Impressions Hip and Pelvis X-Ray 12/15/16 0000 Signed Impressions: Service Date/Time: Thursday, December 15, 2016 05:00 - CONCLUSION: Intact total hip prosthesis for technique and extensive stool and osteopenia as above. Rigoberto Valencia MD Head CT 12/15/16 0000 Signed Impressions: Service Date/Time: Thursday, December 15, 2016 04:53 - CONCLUSION: Chronic and small vessel ischemic changes without any evidence for acute hemorrhage or mass effect. Rigoberto Valencia MD Chest X-Ray 12/15/16 0000 Signed Impressions: Service Date/Time: Thursday, December 15, 2016 07:41 - CONCLUSION: 1. No change in medial left lower lobe consolidation versus atelectasis and small left pleural effusion. 2. Mild bilateral interstitial opacity indicating possible mild pulmonary edema. Sony Erickson MD Cervical Spine CT 12/15/16 0000 Signed Impressions: Service Date/Time: Thursday, December 15, 2016 04:53 - CONCLUSION: Neural foramina compromise right C3-4, right C5-C6 and bilateral lateral recess compromise C5- 6. Rigoberto Valencia MD Laboratory Test 12/18/16 12/18/16 12/18/16 12/18/16 06:02 13:58 15:09 15:25 White Blood Count 18.2 TH/MM3 Red Blood Count 2.09 MIL/MM3 Hemoglobin 6.3 GM/DL 5.0 GM/DL 4.2 GM/DL Hematocrit 19.7 % 15.6 % 12.4 % Mean Corpuscular Volume 94.1 FL Mean Corpuscular Hemoglobin 30.3 PG Mean Corpuscular Hemoglobin 32.2 % Concent Red Cell Distribution Width 17.4 % Platelet Count 370 TH/MM3 Mean Platelet Volume 6.3 FL Neutrophils (%) (Auto) 81.2 % Lymphocytes (%) (Auto) 8.0 % Monocytes (%) (Auto) 9.2 % Eosinophils (%) (Auto) 1.1 % Basophils (%) (Auto) 0.5 % Neutrophils # (Auto) 14.8 TH/MM3 Lymphocytes # (Auto) 1.5 TH/MM3 Monocytes # (Auto) 1.7 TH/MM3 Eosinophils # (Auto) 0.2 TH/MM3 Basophils # (Auto) 0.1 TH/MM3 CBC Comment AUTO DIFF Differential Comment AUTO DIFF CONFIRMED Sodium Level 133 MEQ/L Potassium Level 4.3 MEQ/L Chloride Level 95 MEQ/L Carbon Dioxide Level 27.6 MEQ/L Anion Gap 10 MEQ/L Blood Urea Nitrogen 32 MG/DL Creatinine 4.07 MG/DL Estimat Glomerular Filtration 10 ML/MIN Rate Random Glucose 101 MG/DL Calcium Level 8.0 MG/DL Ferritin 1270 NG/ML Crossmatch Leukocyte-Reduced Red Blood Cells Blood Bank Comment Test 12/18/16 12/18/16 15:26 16:37 Blood Type A POSITIVE Antibody Screen NEGATIVE Crossmatch Leukocyte-Reduced Leukocyte-Reduced Red Blood Red Blood Cells Cells Blood Bank Comment Date/Time Procedure Status Source Growth 12/18/16 14:30 Stool Occult Blood ([facility]AL[facility]) - Final Complete Stool Stool HEMOCCULT POSITIVE 12/15/16 09:10 Aerobic Blood Culture - Preliminary Resulted Blood Peripheral NO GROWTH IN 3 DAYS 12/15/16 09:10 Anaerobic Blood Culture - Preliminary Resulted Blood Peripheral NO GROWTH IN 3 DAYS 12/15/16 05:40 Urine Culture - Final Complete Urine Catheterized Urine 50-100,000 CFU/ML MIXED GRAM POSITIVE... Physical Examination HEENT: normocephalic; atraumatic; no jaundice. Throat is clear. NECK: Neck is supple, no JVD, no lymphadenopathy. CHEST: Chest is clear to auscultation and percussion. CARDIAC: Regular rate and rhythm with no murmur gallop or rubs. ABDOMEN: Soft, nondistended, nontender; no hepatosplenomegaly; bowel sounds are present in all four quadrants. EXTREMITIES: No clubbing, cyanosis, or edema. SKIN: Normal; no rash; no jaundice. DADO OPERATOR: alert but confused. Assessment and Plan Plan - Gi bleed- Actively bleeding, dark Maroon stools since yesterday hgb dropped to 4.2, blood transfusion started - Profound Anemia secondary to acute blood loss. hgb dropped to 4.2 - Leukocytosis. WBC 18.2 - CHF with last echo 2014 showing EF 35% - ESRD on dialysis Tuesdays, , Saturdays - CAD s/p stenting, sacral decubitus ulcers, dementia per primary Plan: - NPO - EGD now - Consider colonoscopy pending results above - cont. supportive care - Cont. to hold plavix - Monitor hh - transfuse as needed - Patient was seen and examined by dr. De La Garza and myself and this note is written on his behalf. Annie Pham Dec 18, 2016 17:40
[2016-12-18 17:55] LABS: APTT (PATIENT) 38.5 SEC (24.3-30.1); INTERNATIONAL NORMALIZED RATIO 1.2 RATIO; PROTHROMBIN TIME - PATIENT 13.6 SEC (9.8-11.6)
[2016-12-18] MEDS ORDERED: SODIUM CHLORIDE 0.9% IV ONE (18:00)
[2016-12-18] MEDS ORDERED: DESMOPRESSIN IV ONE (18:00)
[2016-12-18] MEDS ORDERED: PROPOFOL 200 MG/20 ML AMP IV ONE (19:44)
[2016-12-18] MEDS ORDERED: EPINEPHrine HCL (1:10,000) 1 MG/10 ML SYRINGE OTHER ONE (20:00)
[2016-12-18] MEDS ORDERED: PROPOFOL 1000 MG/100 ML INJ 100 ML ONE (20:42)
[2016-12-18] MEDS: traZODone HCL 50 MG TAB PO SCH (21:00)
[2016-12-18 21:10] LABS: HEMATOCRIT 28.3 % (35.0-46.0); REVIEW FLAG FINAL
[2016-12-18] MEDS ORDERED: DO NOT ADM ANY ANTICOAGULANT DRUGS PRN (21:30)
[2016-12-18] MEDS ORDERED: CHLORHEXIDINE GLUCONATE 2 % 1 PACK (2 CLOTHS)(extra cloths) TOPICAL PRN (21:45)
[2016-12-18 22:48] LABS: BLOOD GAS BASE EXCESS -3.4 mmol/L (-2-2); BLOOD GAS CARBOXYHEMOGLOBIN 2.4 % (0-4); BLOOD GAS HCO3 20 mmol/L (22-26); BLOOD GAS METHEMOGLOBIN 1.2 % (0-2); BLOOD GAS O2 HGB SATURATION 96 % (90-100); BLOOD GAS OXYGEN CONTENT 12.8 Vol % (12.0-20.0); BLOOD GAS PCO2 31 mmHg (38-42); BLOOD GAS PO2 240 mmHg (61-120); BLOOD GAS TOTAL HGB 9.1 G/DL (12.0-16.0); CRITICAL VALUE NO; FIO2 50 %; OXYGEN DEVICE VENTILATOR; TEMP CORR TO 98.6; VENT SETTINGS AC/500/14/5PEEP
[2016-12-18 22:49] LABS: DRAW SITE LT BRACHIAL; NUMBER OF ARTERIAL PUNCTURES 1; STAT NO
[2016-12-19] VITALS (17 sets, daily range): BP systolic 83–131; BP diastolic 51–63; PULSE 96–100; RESP 14–17; TEMP 97.5–98.2; O2SAT 95–100
[2016-12-19] MEDS: ACETAMINOPHEN 1000 MG/100 ML VIAL IV SCH ×4 (02:27→21:02)
[2016-12-19 04:03] LABS: HEMATOCRIT 22.3 % (35.0-46.0); MEAN CELL VOLUME 84.1 FL (80.0-100.0); MEAN CORPUSCULAR HEMOGLOBIN 28.8 PG (27.0-34.0); MEAN CORPUSCULAR HGB CONC 34.2 % (32.0-36.0); PLATELET COUNT 233 TH/MM3 (150-450); RED BLOOD COUNT 2.65 MIL/MM3 (4.00-5.30); RED CELL DISTRIBUTION WIDTH 17.4 % (11.6-17.2); REVIEW FLAG FINAL; WHITE BLOOD COUNT 23.9 TH/MM3 (4.0-11.0)
[2016-12-19 04:19] LABS: APTT (PATIENT) 36.2 SEC (24.3-30.1); INTERNATIONAL NORMALIZED RATIO 1.1 RATIO; PROTHROMBIN TIME - PATIENT 12.7 SEC (9.8-11.6)
[2016-12-19 04:31] LABS: BICARBONATE 23.6 MEQ/L (21.0-32.0); POTASSIUM 4.6 MEQ/L (3.5-5.1)
[2016-12-19 04:44] LABS: CALCIUM-PROTEIN CORRECTED 8.1 MG/DL (8.5-10.1)
[2016-12-19] MEDS: CHLORHEXIDINE GLUCONATE 2 % 1 PACK (2 CLOTHS)(taper/protocol) TOPICAL SCH (05:00)
[2016-12-19] MEDS: SODIUM CHLOR 0.9% 1000 ML INJ 1,000 ML IV PRN (05:22)
[2016-12-19] MEDS: PROPOFOL 1000 MG/100 ML INJ 100 ML IV SCH (05:23)
[2016-12-19] MEDS: LATANOPROST 0.005% OPHT SOLN 2.5 ML BTL EACH EYE SCH ×2 (05:25→21:02)
[2016-12-19] MEDS: LEVOTHYROXINE SODIUM 112 MCG TAB PO SCH (05:26)
[2016-12-19] MEDS ORDERED: SODIUM CHLOR 0.9% 250 ML INJ 250 ML IV ONE (07:00)
[2016-12-19] MEDS: CHLORHEXIDINE 0.12% (ORAL KIT) 15 ML CUP MT SCH ×2 (07:19→21:02)
[2016-12-19 07:58] LABS: HEMATOCRIT 24.1 % (35.0-46.0); REVIEW FLAG FINAL
[2016-12-19] MEDS: NUTRITIONAL SUPPLEMENTS PO SCH (08:47)
[2016-12-19] MEDS: VITAMIN B CMPLX/VITC/FOLIC AC CAP PO SCH (09:00)
[2016-12-19] MEDS: SODIUM CHLORIDE 0.9% FLUSH 10 ML FLUSH IV FLUSH SCH ×2 (09:00→21:03)
--- NOTE | 2016-12-19 11:49 | HHI.GIFU ---
Subjective Remarks Resting in bed. Getting HD at bedside. No active bleeding at this time. Objective Vitals I&O Vital Signs Date Time Temp Pulse Resp B/P Pulse Ox O2 Delivery O2 Flow Rate FiO2 12/19/16 11:28 100 35 12/19/16 08:21 100 35 12/19/16 08:00 35 12/19/16 08:00 97.5 96 16 98/53 100 12/19/16 07:00 96 12/19/16 04:20 100 35 12/19/16 04:00 97 12/19/16 04:00 97.7 97 15 83/51 100 12/19/16 04:00 35 12/19/16 02:57 17 12/19/16 01:15 100 35 12/19/16 00:00 98.2 97 17 124/60 100 12/19/16 00:00 97 12/19/16 00:00 35 12/18/16 23:15 100 35 12/18/16 22:06 100 60 12/18/16 22:00 92 12/18/16 21:10 74 12/18/16 21:10 50 12/18/16 21:10 97.7 74 17 158/68 98 12/18/16 21:08 100 12/18/16 21:00 80 14 127/43 99 Mechanical Ventilator 50 12/18/16 20:45 74 14 152/72 99 Mechanical Ventilator 50 12/18/16 20:30 94 14 149/84 99 Mechanical Ventilator 50 12/18/16 20:26 97.4 101 14 134/93 95 Mechanical Ventilator 50 12/18/16 20:26 99 50 12/18/16 12:00 97.7 99 20 86/48 100 I/O 12/18/16 12/18/16 12/18/16 12/19/16 12/19/16 12/19/16 07:00 15:00 23:00 07:00 15:00 23:00 Intake Total 220 ml 2045 ml 882 ml Output Total 750 ml 0 ml Balance 220 ml 1295 ml 882 ml Intake Oral 120 ml 0 ml 0 ml IV Total 100 ml 523 ml 882 ml Packed Cells 1000 ml FFP 422 ml Other 100 ml Output Urine Total 0 ml 0 ml Emesis 600 ml Estimated Blood Loss 150 ml Other 0 ml # Voids 0 0 # Bowel Movements 1 7 1 Laboratory Laboratory Tests Test 12/18/16 12/18/16 12/18/16 12/18/16 13:58 15:09 15:25 15:26 Hemoglobin 5.0 4.2 Hematocrit 15.6 12.4 Crossmatch Leukocyte-Reduced Leukocyte-Reduced Red Blood Red Blood Cells Cells Blood Bank Comment Blood Type A POSITIVE Antibody Screen NEGATIVE Test 12/18/16 12/18/16 12/18/16 12/18/16 15:30 16:37 17:29 20:50 Nasal Screen MRSA (PCR) NEGATIVE Crossmatch Leukocyte-Reduced Red Blood Cells Blood Bank Comment Prothrombin Time 13.6 Prothromb Time International 1.2 Ratio Activated Partial 38.5 Thromboplast Time Hemoglobin 9.6 Hematocrit 28.3 Test 12/18/16 12/19/16 12/19/16 12/19/16 22:35 03:07 06:56 07:36 Blood Gas Puncture Site LT BRACHIAL Blood Gas Patient Temperature 98.6 Blood Gas HCO3 20 Blood Gas Base Excess -3.4 Blood Gas Oxygen Saturation 96 Arterial Blood pH 7.43 Arterial Blood Partial 31 Pressure CO2 Arterial Blood Partial 240 Pressure O2 Arterial Blood Oxygen Content 12.8 Arterial Blood 2.4 Carboxyhemoglobin Arterial Blood Methemoglobin 1.2 Blood Gas Hemoglobin 9.1 Oxygen Delivery Device VENTILATOR Blood Gas Ventilator Setting AC/500/14/5PEEP Blood Gas Inspired Oxygen 50 White Blood Count 23.9 Red Blood Count 2.65 Hemoglobin 7.6 8.5 Hematocrit 22.3 24.1 Mean Corpuscular Volume 84.1 Mean Corpuscular Hemoglobin 28.8 Mean Corpuscular Hemoglobin 34.2 Concent Red Cell Distribution Width 17.4 Platelet Count 233 Mean Platelet Volume 6.9 Prothrombin Time 12.7 Prothromb Time International 1.1 Ratio Activated Partial 36.2 Thromboplast Time Sodium Level 134 Potassium Level 4.6 Chloride Level 98 Carbon Dioxide Level 23.6 Anion Gap 12 Blood Urea Nitrogen 53 Creatinine 4.01 Estimat Glomerular Filtration 11 Rate Random Glucose 122 Calcium Level 7.0 Protein Corrected Calcium 8.1 Total Protein 5.1 Blood Type A POSITIVE Crossmatch Leukocyte-Reduced Red Blood Cells Blood Bank Comment Date/Time Procedure Status Source Growth 12/18/16 14:30 Stool Occult Blood ([facility]) - Final Complete Stool Stool HEMOCCULT POSITIVE 12/15/16 09:10 Aerobic Blood Culture - Preliminary Resulted Blood Peripheral NO GROWTH IN 4 DAYS 12/15/16 09:10 Anaerobic Blood Culture - Preliminary Resulted Blood Peripheral NO GROWTH IN 4 DAYS 12/15/16 05:40 Urine Culture - Final Complete Urine Catheterized Urine 50-100,000 CFU/ML MIXED GRAM POSITIVE... Imaging Last Impressions Hip and Pelvis X-Ray 12/15/16 0000 Signed Impressions: Service Date/Time: Thursday, December 15, 2016 05:00 - CONCLUSION: Intact total hip prosthesis for technique and extensive stool and osteopenia as above. Rigoberto Valencia MD Head CT 12/15/16 0000 Signed Impressions: Service Date/Time: Thursday, December 15, 2016 04:53 - CONCLUSION: Chronic and small vessel ischemic changes without any evidence for acute hemorrhage or mass effect. Rigoberto Valencia MD Chest X-Ray 12/15/16 0000 Signed Impressions: Service Date/Time: Thursday, December 15, 2016 07:41 - CONCLUSION: 1. No change in medial left lower lobe consolidation versus atelectasis and small left pleural effusion. 2. Mild bilateral interstitial opacity indicating possible mild pulmonary edema. Sony Erickson MD Cervical Spine CT 12/15/16 0000 Signed Impressions: Service Date/Time: Thursday, December 15, 2016 04:53 - CONCLUSION: Neural foramina compromise right C3-4, right C5-C6 and bilateral lateral recess compromise C5- 6. Rigoberto Valencia MD Physical Exam HEENT: Normocephalic; atraumatic; no jaundice. CHEST: CTA, diminished CARDIAC: RRR ABDOMEN: Soft, nondistended, nontender; no hepatosplenomegaly; bowel sounds are present in all four quadrants. EXTREMITIES: No clubbing, cyanosis, or edema. SKIN: Normal; no rash; no jaundice. [employer]: Sedated on ventilator. Assessment and Plan Plan ASSESSMENT: - GIB, upper. S/P EGD (12/18/16)----> Bleeding gastric ulcer. Daily Protonix. HH 8.5/24.1. According to nurse, she had one maroon stool this am. She does not have an NGT/OGT. S/P 6 units PRBC. - Anemia secondary to acute blood loss. HH 8.5/24.1. S/P 6 units PRBC. - Leukocytosis. WBC 23.9. - CHF with last echo 2014 showing EF 35% - ESRD on dialysis Tuesdays, , Saturdays - CAD s/p stenting, sacral decubitus ulcers, dementia per primary Plan: - NPO for now - Place ogt/ngt - Rpt. HH now - Change protonix to 40mg IV BID dosing - Monitor HH - Transfuse as necessary - Hold plavix at this time - Supportive care - Further recommendations to follow based on results of above - PT seen and examined by Dr. De La Garza and myself and this note is written on his behalf Marjan Estrada Dec 19, 2016 11:49
--- NOTE | 2016-12-19 12:22 | HHI.NPPN ---
Subjective History of Present Illness The patient is am 89 yo [place] female who is known to our services for ESRD on HD. She was brought to this facility as she was found on the floor of her NH. She is altered at the present, so no other information can be gathered. She has multiple abrasions on her LEs and her mouth is covered in blood. Uncertain if she bit her tongue. Imaging and labs reviewed. Appears she may have a UTI. Last HD yesterday---on TTS schedule. Interval History Events overnight noted. Patient had acute GI bleed. Now intubated status post endoscopy. Review of Systems General General Remarks Not obtainable today Objective Data Data 12/18/16 12/19/16 19:00 07:00 Intake Total 1522 ml 1405 ml Output Total 750 ml Balance 1522 ml 655 ml Intake Oral 0 ml 0 ml IV Total 100 ml 1305 ml Packed Cells 1000 ml FFP 422 ml Other 100 ml Output Urine Total 0 ml Emesis 600 ml Estimated Blood Loss 150 ml Other 0 ml # Voids 0 # Bowel Movements 3 5 Vital Signs Date Time Temp Pulse Resp B/P Pulse Ox O2 Delivery O2 Flow Rate FiO2 12/19/16 11:28 100 35 12/19/16 08:21 100 35 12/19/16 08:00 35 12/19/16 08:00 97.5 96 16 98/53 100 12/19/16 07:00 96 12/19/16 04:20 100 35 12/19/16 04:00 97 12/19/16 04:00 97.7 97 15 83/51 100 12/19/16 04:00 35 12/19/16 02:57 17 12/19/16 01:15 100 35 12/19/16 00:00 98.2 97 17 124/60 100 12/19/16 00:00 97 12/19/16 00:00 35 12/18/16 23:15 100 35 12/18/16 22:06 100 60 12/18/16 22:00 92 12/18/16 21:10 74 12/18/16 21:10 50 12/18/16 21:10 97.7 74 17 158/68 98 12/18/16 21:08 100 12/18/16 21:00 80 14 127/43 99 Mechanical Ventilator 50 12/18/16 20:45 74 14 152/72 99 Mechanical Ventilator 50 12/18/16 20:30 94 14 149/84 99 Mechanical Ventilator 50 12/18/16 20:26 97.4 101 14 134/93 95 Mechanical Ventilator 50 12/18/16 20:26 99 50 -: 12/19/16 0736 12/19/16 0307 Microbiology 12/18/16 Stool Occult Blood ([facility]) - Final, Complete HEMOCCULT POSITIVE Physical Exam General Appearance: Malnourished Appearance Remarks Very frail in appearance. Wasting of musculature of all limbs. Eyes Eye Exam: Sclera White Neck Neck Exam: Trachea Midline Pulmonary Resp Exam: Clear Bilaterally, Breath Sounds Equal, No Distress Cardiology CV Exam: Regular Gastrointestinal/Abdomen GI Exam: Soft, Non-Tender Integumentary Skin Exam: Clear, Warm Neurologic Neuro Exam: Awake, Moving All Extremities Assessment/Plan Problem List: (1) ESRD (end stage renal disease) on dialysis Plan: Patient seen during dialysis and appears to be tolerating same. Hopefully the patient can be extubated soon. Continue HD TTS as scheduled Mentation appears at baseline However she is still severely debilitated and long-term prognosis is poor in my opinion. Continue with dialytic support as per patient and family's wishes. Opinion is is that hospice will have to be considered without dialysis at some point in the not too distant future when it no longer appears to be contributing significantly to her quality of life for her remaining time. Medications should be adjusted for the patient's ESRD. Avoid gadolinium (2) Altered mental status Plan: w/u in progress Advancing dementia? Delirium? UTI? (3) Urinary tract infection Plan: Abx deferred to primary (4) Failure to thrive in adult Plan: Ongoing these last several months. Patient has been requesting to come off the dialysis machine early as an outpatient during her treatment but still indicated recently that she wanted to continue dialysis. She was advised however by being noncompliant with her dialysis treatments her overall prognosis is significantly reduced. (5) Anemia of renal disease Plan: Continue Epogen and Venofer. Problem Qualifiers (1) Altered mental status: Qualified Code: R41.0 - Delirium (2) Urinary tract infection: Qualified Code: N30.00 - Acute cystitis without hematuria Pio Morton MD Dec 19, 2016 12:22
[2016-12-19] MEDS: POLYETHYLENE GLYCOL 17 GM PKG PO SCH (12:32)
[2016-12-19] MEDS: CHOLECALCIFEROL (VIT D3) 1000 UNIT TAB PO SCH (12:32)
[2016-12-19] MEDS: IRON SUCROSE INJ 100 MG in SODIUM CHLORIDE 0.9% INJ 100 ML IV SCH (12:32)
[2016-12-19] MEDS: PRAVASTATIN SOD 40 MG TAB PO SCH (12:33)
[2016-12-19] MEDS: CALCIUM ACETATE 667 MG CAP PO SCH ×3 (12:33→18:00)
[2016-12-19] MEDS: ASPIRIN EC 81 MG TABEC PO SCH (12:33)
[2016-12-19] MEDS: COLLAGENASE OINT 30 GM TUBE TOPICAL SCH (12:34)
[2016-12-19 12:38] LABS: HEMATOCRIT 32.3 % (35.0-46.0); REVIEW FLAG FINAL
--- NOTE | 2016-12-19 14:16 | PD.CONS ---
Consult Service Palliative Care . Consult Requested By Dr. Julio . Primary Care Physician Non-Staff . Reason for Consultation a. To assist with evaluation and management of symptoms including: dyspnea , encephalopathy b. To assist medical decision maker(s) with: better understanding of current medical conditions; weighing benefits/burdens of medical treatment options; making medical treatment decisions. . HPI History of Present Illness Ms. Richey is an 89 y/o with a known history of dementia; cardiomyopathy (EF 35% ); ESRD on dialysis; CAD s/p stenting; valvular heart disease s/p tricuspid valve surgery; and sacral decubitus ulcers who suffered a right femoral neck fracture and underwent arthroplasty during her hospitalization of 11/14/16 through 11/20/16. She was sent to the [facility] Department on from her rehabilitation facility after she suffered an unwitnessed fall at the facility on that day. Staff apparently arrived and found her on the floor on the right side of her bed. There was no apparent head injury. No known loss of consciousness. Patient's level of confusion appeared to be baseline for her. She complained of pain in the right hip. Vital signs in the emergency room revealed the following: Temperature 97.7; pulse 80; respiratory rate 16; blood pressure 157/66; pulse oximetry 94% on room air Physical examination in the emergency room noted the following: There was a 7 x 5 cm necrotic ulcer on the posterior distal lower extremity. There were superficial ulcerations in the left lower extremity. There were large skin tears along the left knee which were secured by Steri-Strips. There was a 2 cm skin flap involving the right elbow. Head was atraumatic and normocephalic. Cardiovascular, respiratory, gastrointestinal exams were normal. The patient had severe pain with flexion of the right hip. She was oriented to person but not to place or time. Her insight and judgment was noted. Initial diagnostic tests revealed the following: * CBC showed WBC 19.7; hemoglobin 8.3; platelet count 509 * Chemistry profile showed sodium 137; potassium 3.6; chloride 101; CO2 26.7; anion gap 9; BUN 11; creatinine 2.63; GFR 17; glucose 104; calcium 9.0 * Liver function tests revealed the following: Total bilirubin 0.4; AST 16; ALT 10; alkaline phosphatase 1:30; protein 7.7; albumin 2.7 * Urinalysis was remarkable for small occult blood; large leukocyte esterase; negative nitrites; many WBC clumps; rare urine bacteria. * X-ray of the right hip and pelvis showed an intact total hip prosthesis. Extensive stool was noted as well as osteopenia * CT of the head showed chronic small vessel ischemic changes but nothing acute. * Cervical spine CT showed neural foramina compromise on the right at C3-C4; right C5-C6; and bilateral lateral recess compromise at C5-C6. The patient was given a dose of ciprofloxacin in the emergency department for her probable urinary tract infection. She was admitted to the residency hospitalist service. Nephrology was consulted as the patient was already with end-stage renal disease on hemodialysis. Nephrology noted that the patient had multiple recent hospital admissions and that the patient had been progressively declining both physically and mentally. They felt unless there was significant improvement over the next day or so they felt she would be a good candidate for hospice. The patient was scheduled to be discharged in 12/18/16 when a significant drop in hemoglobin was noted going from 7.7 down to 6.3. When rechecked it was down to 5. There has been no overt signs of bleeding. Later that afternoon however she passed a large melanotic stool and became hemodynamically unstable with a systolic blood pressure in the 80s. A [facility] was called and critical care was consulted. The patient was transferred to the intensive care unit, large bore IVs were placed and she was given fluid then blood. Gastroenterology was consulted. EGD was performed on 12/18/16 which showed a bleeding gastric ulcer. The patient was started on daily Protonix. The patient was taken off anticoagulants. Blood Bank notes from today indicate the patient has received 6 units of packed red cells and 2 units of fresh frozen plasma over the last few days. Patient now appears hemodynamically stable though the BP of 0400 was low at 83/ 51. Hg this AM around noon was 11.4. GFR is 11. Patient continues to receive hemodialysis. Urine culture grew out 50-100,000 mixed gram-positive rodrigue. Blood cultures from admission were negative. At time of my visit patient had just been taken off propofol. She will open her eyes to voice/examination but is unable to follow commands and only intermittently tracks. Few spontaneous movements. Nursing pain assessments show pain levels between 1 and 5. The patient is not receiving any regular analgesics, particularly not narcotic analgesics. . Function/Cognitive Trajectory The daughter reports that Ms. Richey has had a challenging time since her heart surgery ( CABG plus tricuspid valve replacement). She apparently suffered a stroke during or immediately after the heart surgery. She had a significant right sided deficit which improved significantly in rehabilitation. She ultimately moved to an assisted living facility were unfortunately, she suffered a second stroke. This one impacted her swallowing, her speech, and her executive type thinking/reasoning. She became increasingly frustrated with her speech and was noted to withdraw socially. The patient was ultimately moved to [facility]. Daughter reports that the patient has mostly been bed and wheelchair bound since her heart surgery. The patient tolerated her right hip hemiarthroplasty on 11/15/16. Daughter reports that she was participating with physical therapy at [facility] and showing some signs of improvement. The patient normally has a fair amount of lower extremity pain. Daughter also reports the patient's normal weight is about 160. Just prior to her hip fracture she recalls the patient's weight being 114 pounds. Daughter reports that the patient "hates" dialysis. She goes through periods where she no longer wants to fight but other periods where she very much wants to live. The patient has been on dialysis for approximately 5 years. . Review of Systems ROS Limitations: Clinical Condition (patient is sedated, intubated, mechanically ventilated, and unable to provide her own review of systems. Review of systems is taken from the medical record and from additional information provided by the patient's daughter.) Constitutional: COMPLAINS OF: Fatigue, Weight loss, Change in appetite, Pain, Generalized weakness Eyes: COMPLAINS OF: Vision loss (macular degeneration; glaucoma; history of retinal hemorrhage; wears glasses) Ears, nose, mouth, throat: COMPLAINS OF: Nasal discharge (long history of sinus drainage problems.), DENIES: Hearing loss, Oral lesions, Throat pain, Running Nose, Epistaxis Respiratory: COMPLAINS OF: Shortness of breath, DENIES: Cough, Wheezing, Hemoptysis Cardiovascular: COMPLAINS OF: Palpitations, Dyspnea on Exertion, Lower Extremity Edema, DENIES: Chest pain Gastrointestinal: COMPLAINS OF: Black stools, Bloody stools, Constipation, DENIES: Diarrhea, Nausea, Vomiting, Difficulty Swallowing, Dyspepsia or heartburn Musculoskeletal: COMPLAINS OF: Joint pain, Neck pain Integumentary: DENIES: Rash Hematologic/Lymphatics: COMPLAINS OF: Bruising Immunologic/Allergic: DENIES: Eczema Neurologic: COMPLAINS OF: Abnormal gait, Localized weakness (right arm weakness ), DENIES: Seizures Psychiatric: COMPLAINS OF: Confusion, DENIES: Anxiety, Depression, Suicidal Ideation Past Family Social History Coded Allergies: Antimony (Verified Allergy, Severe, Confusion, 12/15/16) violent behavior Dilaudid (Verified Allergy, Unknown, confusion, 12/15/16) violent behavior Morphine (Verified Allergy, Unknown, confusion, 12/15/16) violent behavior Adhesives (Verified Adverse Reaction, Severe, 11/14/16) Denies hives from tape, states, "I have very thin skin and the adhesive tears my skin." Penicillin (Verified Adverse Reaction, Intermediate, NAUSEA, 11/14/16) States, "I am taking an antibiotic in the Penicillin family right now without any problem. They give me nausea medicine." Past Medical History Diabetes mellitus Coronary artery disease s/p CABG Peripheral vascular disease Paroxysmal atrial fibrillation Congestive heart failure with last ejection fraction at 35% noted in June History of previous strokes Valvular heart disease with previous tricuspid valve replacement Hypertension Hyperlipidemia Hypothyroidism End-stage renal disease on dialysis Macular degeneration Recent R subcapital hip fx November 2016 . Past Surgical History Tricuspid valve replacement AV fistula for dialysis placement -CABG, stenting - RLE arterial bypass surgery -Decompressive laminectomy for L1 through L5 spinal stenosis - Lobectomy for LLL granuloma - Right carpal tunnel repair - Cataract surgery - Breast biopsy (benign) . Reported Medications Pre-hospital medications in the nursing facility included... Trazodone (Trazodone HCl) 50 Mg Tab 50 Mg PO HS Zantac 75 (Ranitidine HCl) 75 Mg Tab 75 Mg PO DAILY Take 30 to 60 minutes before eating food or drinking beverages that cause heartburn. Coreg (Carvedilol) 3.125 Mg Tab 3.125 Mg PO Q12HR Amlodipine (Amlodipine Besylate) 5 Mg Tab 5 Mg PO DAILY Dulcolax Supp (Bisacodyl) 10 Mg Supp 10 Mg RECTAL DAILY PRN Vitamin D3 (Cholecalciferol) 2,000 Unit Chew 2,000 Units CHEW DAILY Plavix (Clopidogrel Bisulfate) 75 Mg Tab 75 Mg PO DAILY Lasix (Furosemide) 20 Mg Tab 20 Mg PO DAILY Miralax Powder (Polyethylene Glycol 3350 Powder) 17 Gm Powd 17 Gm PO DAILY Zofran (Ondansetron HCl) 4 Mg Tab 4 Mg PO Q8HR PRN Phoslo (Calcium Acetate (Phosphate Binder)) 667 Mg Cap 667 Mg PO TID Polly-Colace (Sennosides-Docusate Sodium) 8.6-50 Mg Tab 2 Tab PO BID PRN Lovastatin 40 Mg Tab 40 Mg PO DAILY Levothyroxine (Levothyroxine Sodium) 112 Mcg Tab 112 Mcg PO DAILY Atrovent HFA 12.9 GM Inh (Ipratropium [place]) 17 Mcg/Act Aer 2 Puff INH Q6HR PRN Nepro (Nutritional Supplements) 1 Liq Liq 1 Can PO DAILY Xalatan Opth Drops (Latanoprost) 0.005% Drops 1 Drop EACH EYE HS Nephro-Donald (B-Complex W/ C & Folic Acid) 1 Tab 1 Tab PO DAILY Aspirin 81 (Aspirin) 81 Mg Tabdr 81 Mg PO DAILY Ipratropium Nasal Unknown Strength [place] Unknown Dose Nephro-Donald Rx (Vitamin B Cmplx/Vit C/Folic AC) Unknown Strength Tab Unknown Dose PO . Current Medications Medications (Trade) Dose Ordered Sig/Tavares Route Start Time Stop Time Status Last Admin (NS Flush) 2 ml UNSCH PRN IV FLUSH 12/15/16 07:45 Sodium Chloride 2 ml 2 ml BID IV FLUSH 12/15/16 09:00 12/19/16 09:00 (Levaquin 500 Mg Premix Inj) 100 ml @ 100 mls/hr Q48H IV 12/16/16 08:00 12/18/16 08:45 (Norvasc) 5 mg DAILY PO 12/15/16 09:00 Hold 12/17/16 09:21 (Ecotrin Ec) 81 mg DAILY PO 12/15/16 09:00 12/19/16 12:33 (Dulcolax Supp) 10 mg DAILY PRN RECTAL 12/15/16 08:00 12/17/16 21:47 (Phoslo) 667 mg TID PO 12/15/16 09:00 12/19/16 12:33 (Coreg) 3.125 mg Q12HR PO 12/15/16 09:00 Hold 12/17/16 21:07 (Plavix) 75 mg DAILY PO 12/15/16 09:00 Hold 12/18/16 08:55 (Lasix) 20 mg DAILY PO 12/15/16 09:00 Hold 12/17/16 09:20 (Xalatan 0.005% Opth Soln) 1 drop HS EACH EYE 12/15/16 21:00 12/19/16 05:25 (Synthroid) 112 mcg DAILY@06 PO 12/15/16 08:09 12/18/16 06:00 (Pravachol) 40 mg DAILY PO 12/15/16 09:00 12/19/16 12:33 (Miralax) 17 gm DAILY PO 12/15/16 09:00 12/19/16 12:32 (Polly-Colace) 2 tab BID PRN PO 12/15/16 08:00 (Desyrel) 50 mg HS PO 12/15/16 21:00 12/17/16 21:07 (Nephrocaps) 1 cap DAILY PO 12/15/16 09:00 12/17/16 09:20 (Vitamin D3) 2,000 units DAILY PO 12/15/16 09:00 12/19/16 12:32 Non-Formulary Medication 1 can DAILY PO 12/15/16 09:00 12/17/16 09:39 (Zofran Odt) 4 mg Q8HR PRN PO 12/15/16 08:00 (Ofirmev Inj) 1,000 mg Q6H IV 12/15/16 15:00 12/19/16 12:34 Collagenase 1 applic 1 applic DAILY TOPICAL 12/16/16 09:00 12/19/16 12:34 (NS 1000 ml Inj) 1,000 ml @ 0 mls/hr Q0M PRN IV 12/15/16 16:49 12/19/16 05:22 Heparin Sodium (Porcine) 8000 units 8,000 units UNSCH PRN IVF 12/15/16 17:00 Hold Sodium Chloride 1,000 ml @ 200 mls/hr Q5H PRN IV 12/15/16 16:49 (NS 1000 ml Inj) 1,000 ml @ 0 mls/hr Q0M PRN IV 12/15/16 16:49 (Mannitol Inj) 12.5 gm UNSCH PRN IV 12/15/16 17:00 12/19/16 09:28 (Albumin 25% Inj) 25 gm UNSCH PRN IV 12/15/16 17:00 (NS Flush) 5 ml UNSCH PRN IV FLUSH 12/15/16 17:00 (Heparin Inj) UNSCH PRN .XX 12/15/16 17:00 (Gentamicin (Dialysis) Inj) 20 mg UNSCH PRN IV 12/15/16 17:00 (Zofran Inj) 4 mg UNSCH PRN IV 12/15/16 17:00 (Tylenol) 650 mg UNSCH PRN PO 12/15/16 17:00 (Benadryl) 25 mg UNSCH PRN PO 12/15/16 17:00 (Nitrostat Sl) 0.4 mg UNSCH PRN SL 12/15/16 17:00 Hold (Catapres) 0.1 mg UNSCH PRN PO 12/15/16 17:00 Hold Gelatin 1 foam 1 foam UNSCH PRN TOP 12/15/16 17:00 12/16/16 14:03 (Venofer Inj/NS Inj) 105 ml @ 105 mls/hr DAILY IV 12/18/16 09:00 12/20/16 09:59 12/19/16 12:32 Miscellaneous Information ALL NURSING DEPARTME... UNSCH PRN .XX 12/18/16 21:30 12/19/16 21:29 Miscellaneous Information Patient in critical care unit? Ass... Q361D .XX 12/18/16 21:45 (Chlorhexidine 2% Cloth) 3 pack DAILY@04 TOPICAL 12/19/16 04:00 12/23/16 04:01 12/19/16 05:00 (Chlorhexidine 2% Cloth) 3 pack UNSCH PRN TOPICAL 12/18/16 21:45 12/23/16 21:38 Chlorhexidine Gluconate 15 ml 15 ml BID@08,20 MT 12/19/16 08:00 12/19/16 07:19 (Diprivan 1000 Mg/100ml Inj) 100 ml @ 0 mls/hr TITRATE IV 12/18/16 23:15 12/19/16 05:23 Fentanyl Citrate 50 mcg 50 mcg Q1H PRN IV PUSH 12/18/16 23:15 (NS 250 ml Inj) 250 ml @ 15 mls/hr ONCE ONCE IV 12/19/16 07:00 12/19/16 23:39 12/19/16 07:00 (Protonix Inj) 40 mg BID IV PUSH 12/19/16 21:00 (Epogen Inj) 10,000 units TuTh IV 12/19/16 12:30 . Family History * The patient's father from complications of gallbladder surgery. * The patient's mother of heart disease. * Family history has a significant amount of heart disease. * No known family history of renal disease. . Substance Use Tobacco: Distant history of tobacco use. Daughter believes she quit over 30 years ago. Alcohol: No known history of abuse. Prescription med abuse: No known abuse of prescription medications Illicits: No known use of illicits . Psychosocial History Ms. Richey is originally from [place]. She moved to [place] in 1993. She is a long-term resident at [facility] She has a high school education. 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 She was in 1980. Her was only 62 years old when he . The couple had 2 children -- Brandy Phillips lives in [place]; Cristóbal lives locally. There are 4 grandchildren. The patient was one of 9 siblings. . Spiritual/Cultural Factors Patient grew up in a fundamentalist family and she attended revival meetings. Daughter believes she has deep buddhist roots and believes in God but became quite better after her . She does not currently belong to a restoration. . . Living Will: Never completed Health Care Surrogate: Never completed Durable Power of [employer]: Copy in medical record Date completed: Health care POA form completed 09/08/2015. . Health Care Surrogate(s): Health care POA form lists : Brandy Small (daughter) and Cristóbal Richey ( son) to serve together as health care surrogates. Documented care wishes: There is no written documentation of health care goals/preferences. . Today's verbally stated goals: Patient is unable to verbally state her own health care goals/preferences. It is uncertain if she will regain capacity to do so. . Family/friends goals: I spoke with both the patient's daughter and son both of whom are cool health care surrogates. They do not want the patient received chest compressions or shock. They would want her to be reintubated once extubated should she develop respiratory distress. They otherwise want ongoing aggressive care and to make decisions as we go along. They know the patient would not want to be prolonged in a vegetative state and on machines. . . Ethical and Legal Issues Patient is incapacitated currently to make her own health care decisions. It is not clear if she will regain capacity to do so. The patient's daughter and son are listed as: Health care surrogates on a [facility] care power of litigation attorney document. . Physical Exam Vital Signs Date Time Temp Pulse Resp B/P Pulse Ox O2 Delivery O2 Flow Rate FiO2 12/19/16 11:28 100 35 12/19/16 08:21 100 35 12/19/16 08:00 35 12/19/16 08:00 97.5 96 16 98/53 100 12/19/16 07:00 96 12/19/16 04:20 100 35 12/19/16 04:00 97 12/19/16 04:00 97.7 97 15 83/51 100 12/19/16 04:00 35 12/19/16 02:57 17 12/19/16 01:15 100 35 12/19/16 00:00 98.2 97 17 124/60 100 12/19/16 00:00 97 12/19/16 00:00 35 12/18/16 23:15 100 35 12/18/16 22:06 100 60 12/18/16 22:00 92 12/18/16 21:10 74 12/18/16 21:10 50 12/18/16 21:10 97.7 74 17 158/68 98 12/18/16 21:08 100 12/18/16 21:00 80 14 127/43 99 Mechanical Ventilator 50 12/18/16 20:45 74 14 152/72 99 Mechanical Ventilator 50 12/18/16 20:30 94 14 149/84 99 Mechanical Ventilator 50 12/18/16 20:26 97.4 101 14 134/93 95 Mechanical Ventilator 50 12/18/16 20:26 99 50 . 12/18/16 12/19/16 19:00 07:00 Intake Total 1522 ml 1405 ml Output Total 750 ml Balance 1522 ml 655 ml Intake Oral 0 ml 0 ml IV Total 100 ml 1305 ml Packed Cells 1000 ml FFP 422 ml Other 100 ml Output Urine Total 0 ml Emesis 600 ml Estimated Blood Loss 150 ml Other 0 ml # Voids 0 # Bowel Movements 3 5 . Exam CONSTITUTIONAL/GENERAL: This is a pale, frail appearing patient, intubated and mechanically ventilated in an MICU bed. Eyes intermittently open. Unable to follow commands or answer questions. No obvious distress. TUBES/LINES/DRAINS: Orotracheal tube; Ariza catheter; peripheral IVs; SKIN: No jaundice, rashes, or lesions. Ecchymoses on upper extremities. Multiple skin tears on lower extremities. Skin temperature appropriate. Not diaphoretic. HEAD: Atraumatic. Normocephalic. EYES: Pupils equal and round and reactive. Extraocular motions intact. No scleral icterus. No injection or drainage. Fundi not examined. ENT: Unable to evaluate hearing. Nose without bleeding or purulent drainage. Throat without visible erythema, exudates, masses, or lesions though difficult to assess adequately due to intubations. NECK: Trachea midline. Supple. No palpable thyroid enlargement or nodularity. CARDIOVASCULAR: Regular rate and rhythm without murmurs, gallops, or rubs. No JVD. Peripheral pulses symmetric. RESPIRATORY/CHEST: Symmetric, unlabored respirations. Clear to auscultation. Breath sounds equal bilaterally. No wheezes, rales, or rhonchi. GASTROINTESTINAL: Abdomen soft, non-tender, nondistended. No hepato-splenomegaly , or palpable masses. No guarding. Bowel sounds present. GENITOURINARY: Without palpable bladder distension. Ariza catheter in place. MUSCULOSKELETAL: Extremities without clubbing, cyanosis. No joint tenderness or effusion noted. No calf tenderness. No mottling or clubbing. LYMPHATICS: No palpable cervical or supraclavicular adenopathy. NEUROLOGICAL: Sedated. Eyes intermittently open but only intermittently tracks. Unable to follow commands. Rare spontaneous movements. PSYCHIATRIC: Unable to assess due to level of responsiveness. . Diagnostic Tests Laboratory Laboratory Tests Test 12/17/16 12/18/16 12/18/16 12/18/16 06:00 06:02 13:58 15:09 White Blood Count 17.3 TH/MM3 18.2 TH/MM3 (4.0-11.0) (4.0-11.0) Red Blood Count 2.52 MIL/MM3 2.09 MIL/MM3 (4.00-5.30) (4.00-5.30) Hemoglobin 7.7 GM/DL 6.3 GM/DL 5.0 GM/DL (11.6-15.3) (11.6-15.3) (11.6-15.3) Hematocrit 23.3 % 19.7 % 15.6 % (35.0-46.0) (35.0-46.0) (35.0-46.0) Mean Corpuscular Volume 92.7 FL 94.1 FL (80.0-100.0) (80.0-100.0) Mean Corpuscular Hemoglobin 30.5 PG 30.3 PG (27.0-34.0) (27.0-34.0) Mean Corpuscular Hemoglobin 32.9 % 32.2 % Concent (32.0-36.0) (32.0-36.0) Red Cell Distribution Width 17.1 % 17.4 % (11.6-17.2) (11.6-17.2) Platelet Count 488 TH/MM3 370 TH/MM3 (150-450) (150-450) Mean Platelet Volume 6.4 FL 6.3 FL (7.0-11.0) (7.0-11.0) Sodium Level 134 MEQ/L 133 MEQ/L (136-145) (136-145) Potassium Level 3.4 MEQ/L 4.3 MEQ/L (3.5-5.1) (3.5-5.1) Chloride Level 96 MEQ/L 95 MEQ/L (98-107) (98-107) Carbon Dioxide Level 28.9 MEQ/L 27.6 MEQ/L (21.0-32.0) (21.0-32.0) Anion Gap 9 MEQ/L (5-15) 10 MEQ/L (5-15) Blood Urea Nitrogen 16 MG/DL (7-18) 32 MG/DL (7-18) Creatinine 2.97 MG/DL 4.07 MG/DL (0.50-1.00) (0.50-1.00) Estimat Glomerular Filtration 15 ML/MIN (>89) 10 ML/MIN (>89) Rate Random Glucose 84 MG/DL 101 MG/DL (74-106) (74-106) Calcium Level 8.0 MG/DL 8.0 MG/DL (8.5-10.1) (8.5-10.1) Iron Level 22 MCG/DL (50-170) Total Iron Binding Capacity 150 MCG/DL (250-450) Percent Iron Saturation 14.7 % (20-50) Neutrophils (%) (Auto) 81.2 % (16.0-70.0) Lymphocytes (%) (Auto) 8.0 % (9.0-44.0) Monocytes (%) (Auto) 9.2 % (0.0-8.0) Eosinophils (%) (Auto) 1.1 % (0.0-4.0) Basophils (%) (Auto) 0.5 % (0.0-2.0) Neutrophils # (Auto) 14.8 TH/MM3 (1.8-7.7) Lymphocytes # (Auto) 1.5 TH/MM3 (1.0-4.8) Monocytes # (Auto) 1.7 TH/MM3 (0-0.9) Eosinophils # (Auto) 0.2 TH/MM3 (0-0.4) Basophils # (Auto) 0.1 TH/MM3 (0-0.2) CBC Comment AUTO DIFF Differential Comment AUTO DIFF CONFIRMED Ferritin 1270 NG/ML (8-252) Crossmatch Leukocyte-Reduced Red Blood Cells Blood Bank Comment Test 12/18/16 12/18/16 12/18/16 12/18/16 15:25 15:26 15:30 16:37 Hemoglobin 4.2 GM/DL (11.6-15.3) Hematocrit 12.4 % (35.0-46.0) Blood Type A POSITIVE Antibody Screen NEGATIVE Crossmatch Leukocyte-Reduced Leukocyte-Reduced Red Blood Red Blood Cells Cells Blood Bank Comment Nasal Screen MRSA (PCR) NEGATIVE (NEGATIVE) Test 12/18/16 12/18/16 12/18/16 12/19/16 17:29 20:50 22:35 03:07 Prothrombin Time 13.6 SEC 12.7 SEC (9.8-11.6) (9.8-11.6) Prothromb Time International 1.2 RATIO 1.1 RATIO Ratio Activated Partial 38.5 SEC 36.2 SEC Thromboplast Time (24.3-30.1) (24.3-30.1) Hemoglobin 9.6 GM/DL 7.6 GM/DL (11.6-15.3) (11.6-15.3) Hematocrit 28.3 % 22.3 % (35.0-46.0) (35.0-46.0) Blood Gas Puncture Site LT BRACHIAL Blood Gas Patient Temperature 98.6 Blood Gas HCO3 20 mmol/L (22-26) Blood Gas Base Excess -3.4 mmol/L (-2-2) Blood Gas Oxygen Saturation 96 % (90-100) Arterial Blood pH 7.43 (7.380-7.420) Arterial Blood Partial 31 mmHg (38-42) Pressure CO2 Arterial Blood Partial 240 mmHg Pressure O2 (61-120) Arterial Blood Oxygen Content 12.8 Vol % (12.0-20.0) Arterial Blood 2.4 % (0-4) Carboxyhemoglobin Arterial Blood Methemoglobin 1.2 % (0-2) Blood Gas Hemoglobin 9.1 G/DL (12.0-16.0) Oxygen Delivery Device VENTILATOR Blood Gas Ventilator Setting AC/500/14/5PEEP Blood Gas Inspired Oxygen 50 % White Blood Count 23.9 TH/MM3 (4.0-11.0) Red Blood Count 2.65 MIL/MM3 (4.00-5.30) Mean Corpuscular Volume 84.1 FL (80.0-100.0) Mean Corpuscular Hemoglobin 28.8 PG (27.0-34.0) Mean Corpuscular Hemoglobin 34.2 % Concent (32.0-36.0) Red Cell Distribution Width 17.4 % (11.6-17.2) Platelet Count 233 TH/MM3 (150-450) Mean Platelet Volume 6.9 FL (7.0-11.0) Sodium Level 134 MEQ/L (136-145) Potassium Level 4.6 MEQ/L (3.5-5.1) Chloride Level 98 MEQ/L (98-107) Carbon Dioxide Level 23.6 MEQ/L (21.0-32.0) Anion Gap 12 MEQ/L (5-15) Blood Urea Nitrogen 53 MG/DL (7-18) Creatinine 4.01 MG/DL (0.50-1.00) Estimat Glomerular Filtration 11 ML/MIN (>89) Rate Random Glucose 122 MG/DL (74-106) Calcium Level 7.0 MG/DL (8.5-10.1) Protein Corrected Calcium 8.1 MG/DL (8.5-10.1) Total Protein 5.1 GM/DL (6.4-8.2) Test 12/19/16 12/19/16 12/19/16 06:56 07:36 12:17 Blood Type A POSITIVE Crossmatch Leukocyte-Reduced Red Blood Cells Blood Bank Comment Hemoglobin 8.5 GM/DL 11.4 GM/DL (11.6-15.3) (11.6-15.3) Hematocrit 24.1 % 32.3 % (35.0-46.0) (35.0-46.0) . Result Diagram: 12/19/16 1217 12/19/16 0307 Microbiology Microbiology Date/Time Procedure Status Source Growth 12/18/16 14:30 Stool Occult Blood (LALY) - Final Complete Stool Stool HEMOCCULT POSITIVE Urine culture of 12/15/16 shows mixed gram-positive rodrigue Blood cultures from 12/15/16 showed no growth to date. . Imaging Last Impressions Hip and Pelvis X-Ray 12/15/16 0000 Signed Impressions: Service Date/Time: Thursday, December 15, 2016 05:00 - CONCLUSION: Intact total hip prosthesis for technique and extensive stool and osteopenia as above. Rigoberto Valencia MD Head CT 12/15/16 0000 Signed Impressions: Service Date/Time: Thursday, December 15, 2016 04:53 - CONCLUSION: Chronic and small vessel ischemic changes without any evidence for acute hemorrhage or mass effect. Rigoberto Valencia MD Chest X-Ray 12/15/16 0000 Signed Impressions: Service Date/Time: Thursday, December 15, 2016 07:41 - CONCLUSION: 1. No change in medial left lower lobe consolidation versus atelectasis and small left pleural effusion. 2. Mild bilateral interstitial opacity indicating possible mild pulmonary edema. Sony Erickson MD Cervical Spine CT 12/15/16 0000 Signed Impressions: Service Date/Time: Thursday, December 15, 2016 04:53 - CONCLUSION: Neural foramina compromise right C3-4, right C5-C6 and bilateral lateral recess compromise C5- 6. Rigoberto Valencia MD . Procedures * Intubation/mechanical ventilation * EGD with cauterization of gastric ulcer . Other * Echocardiogram of 12/15/16 showed ejection fraction of 55-65%. Wall motion was normal. There was no significant valvular disease. * Electroencephalogram of 12/15/16 showed moderate slowing but no epileptic activity. . Patient/Family Conference Present at Family Conference: Daughter. The patient's son also listened in by phone. . Family Conference Time (mins): 55 Family Conference Location: Consult Room Issues Discussed: * Palliative care role, purpose, approach * Additional medical, psychosocial, and spiritual history * Patients general health, functional status, and cognitive changes in the months leading up to the current hospitalization * Family understanding of the current medical problems * Family understanding of prognosis * Patients goals of care as best understood from conversations and/or values * Current medical treatment options and benefits/burdens of those options * Likely scenarios comparing ongoing aggressive care with a transition to comfort measures only * Questions answered to the best of my ability * Palliative care contact information provided . Assessment and Plan Disease Oriented Problem List: (1) Acute upper GI bleed Comment: EGD of 12/18/16 revealed a gastric ulcer. Duodenitis without bleeding was also noted. . (2) Coronary artery disease Comment: Patient has had bypass surgery. (3) Essential hypertension (4) Paroxysmal atrial fibrillation (5) Hypothyroidism (acquired) (6) Sacral decubitus ulcer (7) ESRD (end stage renal disease) on dialysis Comment: Patient has been receiving hemodialysis for approximately 5 years (8) Altered mental status (9) Dementia Comment: Patient developed cognitive challenges following her second stroke. This seems to be more with reasoning and executive function than it is with short-term memory. . (10) Urinary tract infection Symptom Scale: (1) Pain 0-10 Scale: Unable to quantify Comment: Patient with many years of lower extremity pain of uncertain etiology. A fentanyl drip has been available here. . (2) Dyspnea 0-10 Scale: Unable to quantify Comment: Dyspnea currently controlled with mechanical ventilation. . (3) Encephalopathy 0-10 Scale: Unable to quantify (patient has underlying cognitive challenges. These have been exacerbated by what is either a metabolic encephalopathy or a multifactorial delirium.) Pertinent Non-Medical Issues Psychosocial: Patient has a sonCristóbal-- who lives locally. DaughterBrandy lives in [place]. Spiritual: Patient grew up in a fundamentalist tradition. Daughter reports she became better following the premature of her . Legal: No known living will. There is a completed health care power of litigation attorney document that gives: Health care surrogate designation to both of her children. Ethical issues impacting care: Patient is incapacitated to make her own medical decisions. It is not clear if she will regain capacity to do so. . Important Contacts * Cristóbal Richey (son and health co-health care POA) [phone] * Brandy Phillips (daughter and co-health care surrogate) . Prognosis Ms. Richey has not done well since her heart surgery -- CABG and tricuspid valve replacement-- several years ago. She has since suffered 2 strokes. Though she had some improvement after the first stroke. The second stroke left her with some swallowing issues, speech issues and some cognitive deficits. She has been frustrated with these deficits and has withdrawn socially. She is primarily wheelchair and bedbound. Daughter reports that her weight has fallen from a normal weight of approximately 160 pounds down to approximately 115 pounds. She has been receiving hemodialysis for approximately 5 years -- hemodialysis began shortly after her surgery which apparently also caused renal insufficiency. She suffered a hip fracture requiring repair about a month ago, and is now back in the hospital with respiratory failure, urinary tract infection, and a large gastrointestinal hemorrhage. Given the above, and her advanced age her prognosis is not great. It remains possible that she will survive the intensive care unit, and lived to hospital discharge. However, given her trajectory leading up to this hospitalization and given her advanced age, significant relapse is likely. Life expectancy is probably well under a year. Whenever the patient or her family feel they want to "transition to comfort measures, she would be eligible for hospice services. . Code Status: Alternative Code (No chest compressions or shock; Yes intubate and ACLS drugs) Plan == Code Status: ALTERNATE CODE Spoke to son and daughter together. They want patient re-intubated if she is extubated and develops respiratory decompensation. Therefore , code status is ALTERNATE CODE. No shock / No chest compressions but Yes intubation / Yes ACLS drugs. == Decision making: Son and daughter are joint health care surrogates. == Goals: Son and daughter continue to want aggressive care short of the resuscitation limits noted above. They will re-evaluate as the clinical course evolves. They know the patient would not want to be dependent on a ventilator for the rest of her life and would not want to be sustained in a permanent vegetative state. == Pain: Patient has long-standing lower extremity pain of uncertain etiology. She also may be uncomfortable from her prolonged bedbound status; orotracheal intubation; Ariza catheter; and vascular access lines. Patient currently has a fentanyl drip to address pain. No further recommendations at this time. == Dyspnea: Patient's dyspnea is currently being controlled with mechanical ventilation. At this point there is reason to believe she will be able to wean. No further recommendations at this time. == Palliative care will continue to follow to assist with symptom management and to further clarify goals of medical treatment as the clinical course evolves. . Time Spent Total Floor Time (mins): 90 (Total time including chart review; patient examination; above referenced conference with the son and daughter; collaboration with the primary nurse; and documentation.) Face to Face Time (mins): 10 >50% Counseling/Coord of Care: Yes Thank you for the opportunity to participate in the care of Ms. Richey. . Attestation To help prompt me to consider important information that might be impacting today's encounter and assessment, information from prior notes written by myself or my colleagues may have been "brought forward" into today's note. My signature on this note, however, is an attestation that I personally performed the exam, history, and/or decision-making noted today, and, unless otherwise indicated, the interactions with patient, family, and staff as well as the review of records all occurred today. I also attest that the listed assessment and stated plan reflect my best clinical judgment today based on the combination of historical information, prior notes, and today's exam/ interactions. When time spent is documented, it refers only to time spent today by the signer, or if indicated, combined time spent today by collaborating physician/nurse practitioner. . Alexander Martinez MD Dec 19, 2016 14:15
--- NOTE | 2016-12-19 14:51 | HHI.FPPN ---
Subjective Remarks Yesterday afternoon had acute GI bleed with large bloody BM. BPs were dropping at that time to 80s/40s. Taken urgently for silva-endoscopy which showed several bleeding peptic ulcers on EGD. S/p cauterization by GI. This morning patient still in ICU, sedated & intubated in case of need for further procedure. After procedure no other acute events. BP normalized post-procedurally. Also received 2 more units PRBC this AM for decreasing Hgb (9.7 --> 7.7 over 6 hours). ( Kade Tyler MD R1) Objective Vitals Vital Signs Date Time Temp Pulse Resp B/P Pulse Ox O2 Delivery O2 Flow Rate FiO2 12/19/16 11:28 100 35 12/19/16 08:21 100 35 12/19/16 08:00 35 12/19/16 08:00 97.5 96 16 98/53 100 12/19/16 07:00 96 12/19/16 04:20 100 35 12/19/16 04:00 97 12/19/16 04:00 97.7 97 15 83/51 100 12/19/16 04:00 35 12/19/16 02:57 17 12/19/16 01:15 100 35 12/19/16 00:00 98.2 97 17 124/60 100 12/19/16 00:00 97 12/19/16 00:00 35 12/18/16 23:15 100 35 12/18/16 22:06 100 60 12/18/16 22:00 92 12/18/16 21:10 74 12/18/16 21:10 50 12/18/16 21:10 97.7 74 17 158/68 98 12/18/16 21:08 100 12/18/16 21:00 80 14 127/43 99 Mechanical Ventilator 50 12/18/16 20:45 74 14 152/72 99 Mechanical Ventilator 50 12/18/16 20:30 94 14 149/84 99 Mechanical Ventilator 50 12/18/16 20:26 97.4 101 14 134/93 95 Mechanical Ventilator 50 12/18/16 20:26 99 50 I/O 12/18/16 12/18/16 12/18/16 12/19/16 12/19/16 12/19/16 07:00 15:00 23:00 07:00 15:00 23:00 Intake Total 220 ml 2045 ml 882 ml Output Total 750 ml 0 ml Balance 220 ml 1295 ml 882 ml Intake Oral 120 ml 0 ml 0 ml IV Total 100 ml 523 ml 882 ml Packed Cells 1000 ml FFP 422 ml Other 100 ml Output Urine Total 0 ml 0 ml Emesis 600 ml Estimated Blood Loss 150 ml Other 0 ml # Voids 0 0 # Bowel Movements 1 7 1 (Kade Tyler MD R1) Result Diagram: 12/19/16 1217 12/19/16 0307 Imaging Last Impressions Hip and Pelvis X-Ray 12/15/16 0000 Signed Impressions: Service Date/Time: Thursday, December 15, 2016 05:00 - CONCLUSION: Intact total hip prosthesis for technique and extensive stool and osteopenia as above. Rigoberto Valencia MD Head CT 12/15/16 0000 Signed Impressions: Service Date/Time: Thursday, December 15, 2016 04:53 - CONCLUSION: Chronic and small vessel ischemic changes without any evidence for acute hemorrhage or mass effect. Rigoberto Valencia MD Chest X-Ray 12/15/16 0000 Signed Impressions: Service Date/Time: Thursday, December 15, 2016 07:41 - CONCLUSION: 1. No change in medial left lower lobe consolidation versus atelectasis and small left pleural effusion. 2. Mild bilateral interstitial opacity indicating possible mild pulmonary edema. Sony Erickson MD Cervical Spine CT 12/15/16 0000 Signed Impressions: Service Date/Time: Thursday, December 15, 2016 04:53 - CONCLUSION: Neural foramina compromise right C3-4, right C5-C6 and bilateral lateral recess compromise C5- 6. Rigoberto Valencia MD Objective Remarks GENERAL: Sleeping in bed, sedated and intubated. FIO2 35%. SKIN: Pallor. Stage 2-3 sacral decubitus ulcer (dressing changed 12/14, sees wound care), stage 2-3 pressure ulcer R posterior calf, healing. Skin abrasion over L anterior warren. Several bruises over shins and forearms in various stages of healing. CARDIOVASCULAR: Normal rate, irregularly irregular rhythm. Normal S1/S2. No MRG RESPIRATORY: CTAB, no crackles or wheezes MUSCULOSKELETAL: Extremities without clubbing, cyanosis, or edema. Wounds as documented above. Procedures Hemodialysis - Tue/Thur/Sat schedule Silva-endoscopy - 12/18/16 (Kade Tyler MD R1) A/P Assessment and Plan 89 yo female with PMH of CHF with last echo 2014 showing EF 35%, ESRD on dialysis TTS, CAD s/p stenting, sacral decubitus ulcers presenting [facility] Sent to the ED for evaluation and was admitted for altered mental status and urinary tract infection. Discharge Planning Unclear; pending stabilization of medical issues and discussion with palliative care team (Kade Tyler MD R1) Attending Attestation Patient seen, examined, and discussed with resident team. I agree with assessment and management as documented and discussed with me. Pt remains intubated. About to receive unit #5 of PRBCs this AM. Appreciate critical care, nephrology, GI. Consult palliative care in light of this patient's complicated course. She is likely a hospice candidate, pending her POA's goals align. (Helen La MD) Problem List: (1) Acute upper GI bleed Status: Acute Plan: GIB noted by dropping H/H, large bloody BM on 12/18. Silva-endoscopy 12/18 showed bleeding peptic ulcers, now s/p cauterization. H/H up to 11.6 after transfusion this AM - Ballet Dancer consulted, appreciate recommendations - GI consulted, appreciate recommendations - S/p silva-endoscopy; per GI 30-40% chance of re-bleeding - PPI dosed renally = 40 mg Protonix IV daily - S/p 5 units PRBC, 2 units FFP - H/H Q6H; transfuse for Hgb < 7.0 or decrease of >= 2.0 over 6 hours - Patient remains intubated/sedated until GIB stable (in case other procedure needs to be done) - Consult palliative care for formal discussion of treatment goals, prognosis ( topic has been broached several times with son and daughter who are POA) (2) Urinary tract infection Status: Resolved Plan: UA with leuk esterase and bacteria (catheterized sample). Leukocytosis but no fevers. UCx showing contaminant (50-100k mixed GPC). - s/p Levaquin dosed renally (500 mg Q48H), s/p coverage of 5 days with fluoroquinolone (cipro day 1, Levaquin x2 doses with each dose covering 48 hours ) (3) Altered mental status Status: Resolved Plan: In setting of elevated WBC and + bacteria and leuk esterase in catheterized urine sample, likely etiology is UTI. Pain from recent hip surgery could be component. EKG without tachycardia, ST-T wave changes; AFib with normal HR EEG showing no evidence of seizure disorder Troponins/EKG reassuring ECHO done, EF of 55 to 60%. Chest x-ray shows edema, no evidence of pneumonia UCx 50-100k CFU/mL mixed GPC - Has been getting Tylenol 1 g IV Q6H for pain, on discharge can consider scheduling 650 mg PO every 6-8 hours - Treating UTI (despite negative culture, patient improved with treatment) - Delirium prevention: sunlight, no sleeping during the day, hold sedating medications (4) CHF, chronic Status: Chronic Plan: EF 55-60%, not currently symptomatic - Continue home beta rock (5) ESRD (end stage renal disease) on dialysis Status: Chronic Plan: Initial creatine currently 2.63 which is about baseline, today is 2.97. Hemodialysis on a Sunday, , Sunday schedule. - Nephrology on board, appreciate recs - Continue phosphate binder, Ca, vitamin D - Continue outpatient dialysis - Renally dose medicines, avoid nephrotoxic agents (6) Anemia of renal disease Status: Chronic Plan: Patient's sudden drop in Hgb from ~8 to ~6 found to be due to acute GIB. Once stable baseline Hgb will still likely be slightly low due to renal disease. Serum iron 22 TIBC 150 % saturation ~15 - See above management for Acute Upper GIB. - Nephrology consulted, appreciate recs - Venofer as ordered by nephrology (daily) (7) Sacral decubitus ulcer Status: Chronic Plan: Stable from previous descriptions in outpatient setting, do not appear acutely infected on exam - Consult wound nurse, appreciate recs - Rotate patient every 2 hours - Santyl dressing changes daily on sacral ulcer, not on other ulcers - On discharge, continue treatment of wounds per patient's wound care physician (8) Essential hypertension Status: Chronic Plan: BP stable - Continue home Coreg, hold for BP < 90/50 (9) Coronary artery disease Status: Chronic Plan: S/p CABG - Continue home ASA, Plavix, Statin (10) History of right hip hemiarthroplasty Status: Chronic Plan: No abnormalities on X-ray - Pain as above (11) Paroxysmal atrial fibrillation Status: Chronic Plan: Had been on Coumadin previously, but due to recent bleed requiring hospital visit this was discontinued. - Continue rate control with beta rock - Holding ASA/Plavix (GIB) (12) Dementia Status: Chronic Plan: Dementia, at high risk for delirium - Continue home trazodone as needed for sleep - Delirium precautions (13) FEN/PPX Status: Acute Plan: Fluids: use with caution Elecs: Monitor and replete PRN Nutrition: Diet regular basic, Nepro supplementation (once extubated and cleared for oral intake) DVT: Held due to GIB sdw Dr. La, Dr. Julio, Dr. 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
[2016-12-19] MEDS: EPOETIN ALFA 10,000 UNITS/ML VIAL IV SCH (15:18)
[2016-12-19] MEDS ORDERED: PANTOPRAZOLE SODIUM 40 MG VIAL IV PUSH SCH (16:00)
[2016-12-19] MEDS ORDERED: EPOETIN ALFA 10,000 UNITS/ML VIAL SQ SCH (17:00)
--- NOTE | 2016-12-19 17:08 | HHI.FPPN ---
Addendum to progress note ADDENDUM Reason for addendum: Additonal documentation Additional information Visited patient this afternoon. Daughter Brandy is by the bedside. Patient remains sedated and on mechanical ventilation. She has received a total of 6 units PRBC and 2 units FFP. Her hemoglobin is currently 11.4, hematocrit 32.3. She had one melanotic stool this morning, none reported since. She has coagulation of gastric ulcers found on EGD. She is being weaned off sedatives with plan to hopefully extubate her in the near future. Vitals: 97.5 100 15 131/63 100% on 35 FiO2 Physical Exam: General: Lying in bed, sedated HEENT: Normocephalic, no bleeding from mouth or nose Heart: Systolic ejection murmur, regular rate and rhythm, pulses present Lungs: Transmitted sounds from mechanical ventilator Ext: edema of dependent parts of body after fluids and blood product administration Neuro: Sedated Labs: Hgb 11.4 Hct 32.3 Assessment: 89 year old female with acute GI bleed, s/p coagulation of gastric ulcers, currently mechanically ventilated and s/p 6 units PRBC and 2 units FFP Plan: - Wean sedation - Wean off vent as tolerated - Monitor serial H&H's - Piccolo Mechanic on board - GI on board - Palliative care on board - Updated Brandy, daughter. Son is coming tonight. - Will update family with any status changes Seen and discussed with Dr. Tyler Discussed with Albaro Thakkar MD R2 Dec 19, 2016 17:08
[2016-12-19 19:13] LABS: HEMATOCRIT 34.4 % (35.0-46.0); REVIEW FLAG FINAL
--- NOTE | 2016-12-19 19:27 | HHI.CCPN ---
Subjective Remarks/Hospital Course Hospital Course: This is an 89yF with history of congestive heart failure with a prior EF of 35% , end-stage renal disease on HD who initially presented to the hospital with urinary tract infection. She was actually scheduled to be discharged today when she had a significant hemoglobin drop from 7.7 --> 6.3, rechecked and was down to 5. At that time, she did not have any overt signs of bleeding. However , this afternoon she had a large melanotic bowel movement and became hemodynamically unstable with SBP in the 80s, and felt very fatigued. A rapid response was called. I immediately evaluated the patient. She was diaphoretic and hypotensive. very pale appearing. We immediately ordered 2 units uncrossmatched emergency release blood from the blood bank, and we transferred her emergently to the ICU. At this point, she also had no iv access. Vascular access team was at bedside and placed an 18g piv for us. I additionally placed a second 18g piv so we could maintain 2 large bore piv access at all times. Unfortunately, due to the hemodynamically unstable nature of the patient, additional information is unobtainable from the patient. The family medicine team did talk with her son and medical decision maker, and he stated that he wanted to keep the DNR status in place. He did say that transient intubation for a GI procedure would be acceptable for her as long as long-term ventilation was not considered. We will proceed with medically aggressive care with DNR in place and intubation only for procedures. Subjective: 12/19: GI secured multiple gastric ulcers with cauterization and epinephrine. intubated for airway protection and left intubated to watch clinical course. this morning received 2 units prbc with appropriate response. IHD today. I had a long talk with her daughter, where I reiterated that the decision by the family to intubate the patient for this one procedure is a reasonable one, but if she did not extubate on pathway, or if she extubated and failed from a pulmonary standpoint, the entire family agrees that the patient was strict in her wishes to remain DNR/DNI, and a re-intubation for pulmonary reasons was likely against her wishes. Objective Vital Signs Date Time Temp Pulse Resp B/P Pulse Ox O2 Delivery O2 Flow Rate FiO2 12/19/16 18:00 100 12/19/16 17:24 95 35 12/19/16 16:00 97.5 15 131/63 12/18/16 21:00 Mechanical Ventilator Intake and Output 12/18/16 12/18/16 12/19/16 08:00 16:00 00:00 Intake Total 220 ml 2045 ml Output Total 750 ml Balance 220 ml 1295 ml Result Diagram: 12/19/16 1833 12/19/16 0307 Other Results Microbiology Date/Time Procedure Status Source Growth 12/18/16 14:30 Stool Occult Blood (LALY) - Final Complete Stool Stool HEMOCCULT POSITIVE Laboratory Tests Test 12/18/16 22:35 Blood Gas Puncture Site LT BRACHIAL Blood Gas Patient Temperature 98.6 Blood Gas HCO3 20 mmol/L (22-26) Blood Gas Base Excess -3.4 mmol/L (-2-2) Blood Gas Oxygen Saturation 96 % (90-100) Arterial Blood pH 7.43 (7.380-7.420) Arterial Blood Partial 31 mmHg (38-42) Pressure CO2 Arterial Blood Partial 240 mmHg Pressure O2 (61-120) Arterial Blood Oxygen Content 12.8 Vol % (12.0-20.0) Arterial Blood 2.4 % (0-4) Carboxyhemoglobin Arterial Blood Methemoglobin 1.2 % (0-2) Blood Gas Hemoglobin 9.1 G/DL (12.0-16.0) Oxygen Delivery Device VENTILATOR Blood Gas Ventilator Setting AC/500/14/5PEEP Blood Gas Inspired Oxygen 50 % Objective Remarks GENERAL: Frail, elderly lady, intubated, sedated. HEENT: Normocephalic. Atraumatic. Pupils equal, round, reactive, conjugate. Mucous membranes moist. NECK: No JVD. Trachea is midline. CHEST: Mildly tachypneic. Clear to auscultation. CARDIOVASCULAR: Normal rate, regular rhythm. No appreciable murmurs. ABDOMEN: Soft, nontender, nondistended. No guarding. MUSCULOSKELETAL: No peripheral edema. Distal pulses 2+. NEUROLOGICAL: RASS -2. briskly purposeful. does not follow commands. A/P Assessment and Plan Assessment: This is an 89-year-old female with ESRD and active GI bleed, s/p EGD with cauterization and injection of multiple high risk gastric ulcers. She is now hemodynamically stable, s/p IHD, her hgb improved appropriately. We will work towards weaning to extubate the patient. I think per her wishes she should remain DNR/DNI and if she extubates and fails from a pulmonary standpoint, we should pursue palliation. Plan: 1. Upper GI Bleed -- continue to trend H&H -- GI consulted -- iv bid ppi -- npo 2. Intubation secondary to airway protection -- wean to extubate. certainly her age and comorbidities make her high risk to fail SBT or trial of extubation. 3. ESRD on HD -- HD today. -- nephro following. 4. Anemia secondary to acute blood loss -- s/p 2 units prbc this AM with appropriate rise in hgb. -- does not meet transfusion triggers at this time. -- serial H&H 5. uremic platelet dysfunction -- s/p DDAVP on 12/18 prophy: scds. holding pharmacologic dvt prophy given recent active upper GI bleed. iv bid ppi. Dispo: remain in ICU. Jeremy Crowe MD Dec 19, 2016 19:27
[2016-12-19] MEDS: traZODone HCL 50 MG TAB PO SCH (21:01)
[2016-12-19] MEDS: PANTOPRAZOLE SODIUM 40 MG VIAL IV PUSH SCH (21:01)
--- NOTE | 2016-12-19 21:20 | MR ---
cc: DENIS CHÁVEZ M.D. DATE OF PROCEDURE 12/18/16 DATE OF [address] La PROCEDURE Upper gastrointestinal endoscopy with bleeding controlled by injection of epinephrine and cauterization with gold probe. INDICATION An 89-year-old lady who had significant drop of her hemoglobin with melena and large amount of blood coming from her rectum. The patient was DNR. I had a discussion with her daughter and her son. They would like the DNR rescinded and they are aware that the patient would be intubated and this could be extension intubation. PROCEDURE IN DETAIL The intubation was performed by the anesthesia. The patient was placed on her left lateral decubitus, adequate sedation was achieved by anesthesia. Scope was placed in the mouth, advanced under video guidance. There was a large clot in the stomach which adhered to the antrum. This was removed by snare and then there was large multiple ulcers which was actively bleeding a large amount of blood. This area was cleaned and then injected with a total of 26 cc of 1/10,000 epinephrine and multiple ulcers were actively bleeding, those were cauterized with gold probe. At the end the bleeding was controlled. No active bleeding was seen. Next, the duodenum showed duodenitis with small ulcerations and more blood clot, no active bleeding. FINDINGS Bleeding ulcer in the antrum, controlled by injection of epinephrine and ablation. RECOMMENDATIONS 1. Keep intubated. 2. Packed RBC as needed. 3. H&H every hours. 4. EGD in 1 week. 5. PPI IV for now. MD CAROLINE Mcnally/TERESE /8:23 PM /9:12 PM
[2016-12-20] VITALS (18 sets, daily range): BP systolic 102–127; BP diastolic 53–66; PULSE 91–101; RESP 14–21; TEMP 97.5–99; O2SAT 95–100
[2016-12-20 01:14] LABS: HEMATOCRIT 37.1 % (35.0-46.0); REVIEW FLAG FINAL
[2016-12-20] MEDS: ACETAMINOPHEN 1000 MG/100 ML VIAL IV SCH ×4 (02:26→20:21)
[2016-12-20] MEDS: PROPOFOL 1000 MG/100 ML INJ 100 ML IV SCH (02:27)
[2016-12-20] MEDS: CHLORHEXIDINE GLUCONATE 2 % 1 PACK (2 CLOTHS)(taper/protocol) TOPICAL SCH (04:00)
[2016-12-20] MEDS: LEVOTHYROXINE SODIUM 112 MCG TAB PO SCH (06:26)
[2016-12-20 07:00] LABS: AUTOMATED NEUTROPHIL # 17.2 TH/MM3 (1.8-7.7); BASOPHIL % 0.2 % (0.0-2.0); EOSINOPHIL # 0.2 TH/MM3 (0-0.4); EOSINOPHIL % 0.9 % (0.0-4.0); HEMATOCRIT 34.8 % (35.0-46.0); HEMO FLAGS DIFF FINAL; LYMPH % 8.7 % (9.0-44.0); LYMPHOCYTE # 1.8 TH/MM3 (1.0-4.8); MEAN CELL VOLUME 85.7 FL (80.0-100.0); MEAN CORPUSCULAR HEMOGLOBIN 28.8 PG (27.0-34.0); MEAN CORPUSCULAR HGB CONC 33.6 % (32.0-36.0); NEUT % 84.2 % (16.0-70.0); PLATELET COUNT 237 TH/MM3 (150-450); RED BLOOD COUNT 4.06 MIL/MM3 (4.00-5.30); RED CELL DISTRIBUTION WIDTH 16.6 % (11.6-17.2); WHITE BLOOD COUNT 20.5 TH/MM3 (4.0-11.0)
[2016-12-20 07:32] LABS: BICARBONATE 26.4 MEQ/L (21.0-32.0); POTASSIUM 3.4 MEQ/L (3.5-5.1)
[2016-12-20] MEDS: CHLORHEXIDINE 0.12% (ORAL KIT) 15 ML CUP MT SCH ×2 (08:00→20:22)
[2016-12-20] MEDS: POLYETHYLENE GLYCOL 17 GM PKG PO SCH (08:54)
[2016-12-20] MEDS: LEVOFLOXACIN 500 MG PREMIX INJ 100 ML IV SCH (08:55)
[2016-12-20] MEDS: IRON SUCROSE INJ 100 MG in SODIUM CHLORIDE 0.9% INJ 100 ML IV SCH (08:55)
[2016-12-20] MEDS: CHOLECALCIFEROL (VIT D3) 1000 UNIT TAB PO SCH (08:55)
[2016-12-20] MEDS: ASPIRIN EC 81 MG TABEC PO SCH (08:55)
[2016-12-20] MEDS: PRAVASTATIN SOD 40 MG TAB PO SCH (08:55)
[2016-12-20] MEDS: CALCIUM ACETATE 667 MG CAP PO SCH ×3 (08:56→17:23)
[2016-12-20] MEDS: COLLAGENASE OINT 30 GM TUBE TOPICAL SCH (08:56)
[2016-12-20] MEDS: VITAMIN B CMPLX/VITC/FOLIC AC CAP PO SCH (08:56)
[2016-12-20] MEDS: PANTOPRAZOLE SODIUM 40 MG VIAL IV PUSH SCH ×2 (08:57→20:21)
[2016-12-20] MEDS: SODIUM CHLORIDE 0.9% FLUSH 10 ML FLUSH IV FLUSH SCH ×2 (08:57→20:21)
[2016-12-20] MEDS: NUTRITIONAL SUPPLEMENTS PO SCH (08:58)
--- NOTE | 2016-12-20 09:09 | HHI.CCPN ---
Subjective Remarks/Hospital Course Hospital Course: This is an 89yF with history of congestive heart failure with a prior EF of 35% , end-stage renal disease on HD who initially presented to the hospital with urinary tract infection. She was actually scheduled to be discharged today when she had a significant hemoglobin drop from 7.7 --> 6.3, rechecked and was down to 5. At that time, she did not have any overt signs of bleeding. However , this afternoon she had a large melanotic bowel movement and became hemodynamically unstable with SBP in the 80s, and felt very fatigued. A rapid response was called. I immediately evaluated the patient. She was diaphoretic and hypotensive. very pale appearing. We immediately ordered 2 units uncrossmatched emergency release blood from the blood bank, and we transferred her emergently to the ICU. At this point, she also had no iv access. Vascular access team was at bedside and placed an 18g piv for us. I additionally placed a second 18g piv so we could maintain 2 large bore piv access at all times. Unfortunately, due to the hemodynamically unstable nature of the patient, additional information is unobtainable from the patient. The family medicine team did talk with her son and medical decision maker, and he stated that he wanted to keep the DNR status in place. He did say that transient intubation for a GI procedure would be acceptable for her as long as long-term ventilation was not considered. We will proceed with medically aggressive care with DNR in place and intubation only for procedures. Subjective: 12/19: GI secured multiple gastric ulcers with cauterization and epinephrine. intubated for airway protection and left intubated to watch clinical course. this morning received 2 units prbc with appropriate response. IHD today. I had a long talk with her daughter, where I reiterated that the decision by the family to intubate the patient for this one procedure is a reasonable one, but if she did not extubate on pathway, or if she extubated and failed from a pulmonary standpoint, the entire family agrees that the patient was strict in her wishes to remain DNR/DNI, and a re-intubation for pulmonary reasons was likely against her wishes. 12/20: Patient remains intubated, sedated with propofol. Wakes up follows commands. WBC improving 23.9 to 20, Hb stable. Chest x-ray pending Objective Vital Signs Date Time Temp Pulse Resp B/P Pulse Ox O2 Delivery O2 Flow Rate FiO2 12/20/16 08:00 91 12/20/16 08:00 30 12/20/16 08:00 97.6 15 127/66 96 12/18/16 21:00 Mechanical Ventilator Intake and Output 12/19/16 12/19/16 12/20/16 08:00 16:00 00:00 Intake Total 882 ml 602 ml 249 ml Output Total 0 ml 1000 ml 1 ml Balance 882 ml -398 ml 248 ml Result Diagram: 12/20/16 0540 12/20/16 0540 Other Results Microbiology Date/Time Procedure Status Source Growth 12/18/16 14:30 Stool Occult Blood ([facility]ALY) - Final Complete Stool Stool HEMOCCULT POSITIVE Objective Remarks GENERAL: Frail, elderly lady, intubated, sedated. HEENT: Normocephalic. Atraumatic. Pupils equal, round, reactive, conjugate. Mucous membranes moist. NECK: No JVD. Trachea is midline. CHEST: Mildly tachypneic. Clear to auscultation. CARDIOVASCULAR: Normal rate, regular rhythm. No appreciable murmurs. ABDOMEN: Soft, nontender, nondistended. No guarding. MUSCULOSKELETAL: No peripheral edema. Distal pulses 2+. NEUROLOGICAL: RASS -2. briskly purposeful. Follows commands in upper extremities and answers by nodding her head A/P Assessment and Plan Assessment: This is an 89-year-old female with ESRD and active GI bleed, s/p EGD with cauterization and injection of multiple high risk gastric ulcers. She is now hemodynamically stable, s/p IHD, her hgb improved appropriately. We will work towards weaning to extubate the patient. I think per her wishes she should remain DNR/DNI and if she extubates and fails from a pulmonary standpoint, we should pursue palliation. Plan: 1. Upper GI Bleed -- continue to trend H&H. Stable -- GI following -- iv bid ppi -- npo 2. Intubation secondary to airway protection -- wean to extubate today after SBT. certainly her age and comorbidities make her high risk to fail SBT or trial of extubation. 3. ESRD on HD -- HD today. -- Nephro following. 4. Anemia secondary to acute blood loss -- s/p 2 units prbc 12/19 with appropriate rise in hgb. -- does not meet transfusion triggers at this time. -- serial H&H 5. uremic platelet dysfunction -- s/p DDAVP on 12/18 prophy: scds. holding pharmacologic dvt prophy given recent active upper GI bleed. iv bid ppi. Dispo: remain in ICU. Possible extubation Emely Loyd MD Dec 20, 2016 09:09
--- NOTE | 2016-12-20 10:09 | RADRPT ---
EXAM DATE/TIME: 12/20/2016 09:00 [place] COMPARISON: CHEST SINGLE AP, December 15, 2016, 7:41. INDICATIONS : Respiratory disease. MEDICAL HISTORY : Hypertension. Hypothyroidism. Hypercholesterolemia. Macular degeneration. Atrial fibrillation. Ca rdiovascular disease. COPD. Hyperlipidema. CHF. Diabetes II. SURGICAL HISTORY : Tricuspid valve replacement. Left lower lobe lumpectomy. Lumbar fusion. ENCOUNTER: Subsequent ACUITY: 4 - 6 days PAIN SCORE: Non-responsive. LOCATION: Bilateral chest FINDINGS: Endotracheal tube tip at the inferior margin of the clavicles. NG tube courses beneath the diaphragm. There is left lower lobe consolidation. Small bilateral effusions are suspected. Right axillary sten t identified. CONCLUSION: No significant change has occurred. Alvino García MD on December 20, 2016 at 10:06 Board Certified Radiologist. This report was verified electronically.
--- NOTE | 2016-12-20 10:53 | HHI.FPPN ---
Subjective Remarks Overnight H/H stable, attempted to wean sedation and extubate but patient not ready from a ventilatory standpoint per [facility]. This AM weaned sedation again and [facility] plans to attempt extubation if patient making good respiratory effort unassisted. Per RN no other acute events overnight. (Kade Tyler MD R1) Objective Vitals Vital Signs Date Time Temp Pulse Resp B/P Pulse Ox O2 Delivery O2 Flow Rate FiO2 12/20/16 10:00 97 12/20/16 09:25 100 30 12/20/16 08:55 30 12/20/16 08:00 91 12/20/16 08:00 30 12/20/16 08:00 97.6 91 15 127/66 96 12/20/16 06:00 94 12/20/16 04:06 100 30 12/20/16 04:00 98 12/20/16 04:00 30 12/20/16 04:00 97.8 98 14 114/58 100 12/20/16 02:56 14 12/20/16 02:00 98 12/20/16 00:29 100 35 12/20/16 00:00 98.7 99 14 121/63 100 12/20/16 00:00 35 12/20/16 00:00 99 12/19/16 22:00 98 12/19/16 21:23 100 35 12/19/16 20:00 35 12/19/16 20:00 99 12/19/16 20:00 98.0 99 14 103/54 100 12/19/16 18:00 100 12/19/16 17:24 95 35 12/19/16 16:00 97.5 100 15 131/63 100 12/19/16 16:00 35 12/19/16 16:00 100 12/19/16 14:00 98 12/19/16 12:00 35 12/19/16 12:00 99 12/19/16 12:00 97.6 99 17 108/55 100 12/19/16 11:28 100 35 I/O 12/19/16 12/19/16 12/19/16 12/20/16 12/20/16 12/20/16 07:00 15:00 23:00 07:00 15:00 23:00 Intake Total 882 ml 602 ml 249 ml 347 ml Output Total 0 ml 1000 ml 1 ml 0 ml Balance 882 ml -398 ml 248 ml 347 ml Intake Oral 0 ml 0 ml 0 ml IV Total 882 ml 602 ml 219 ml 287 ml Tube Feeding 0 ml Other 30 ml 60 ml Output Urine Total 0 ml 0 ml Stool Total 1 ml Hemodialysis 1000 ml # Voids 0 # Bowel Movements 1 (Kade Tyler MD R1) Result Diagram: 12/20/16 0540 12/20/16 0540 Imaging Last Impressions Chest X-Ray 12/20/16 0000 Signed Impressions: Service Date/Time: Tuesday, December 20, 2016 09:00 - CONCLUSION: No significant change has occurred. Alvino García MD Hip and Pelvis X-Ray 12/15/16 0000 Signed Impressions: Service Date/Time: Thursday, December 15, 2016 05:00 - CONCLUSION: Intact total hip prosthesis for technique and extensive stool and osteopenia as above. Rigoberto Valencia MD Head CT 12/15/16 0000 Signed Impressions: Service Date/Time: Thursday, December 15, 2016 04:53 - CONCLUSION: Chronic and small vessel ischemic changes without any evidence for acute hemorrhage or mass effect. Rigoberto Valencia MD Cervical Spine CT 12/15/16 0000 Signed Impressions: Service Date/Time: Thursday, December 15, 2016 04:53 - CONCLUSION: Neural foramina compromise right C3-4, right C5-C6 and bilateral lateral recess compromise C5- 6. Rigoberto Valencia MD Objective Remarks GENERAL: Sleeping in bed, intubated. FIO2 30%. Opens eyes to light touch, grasping. Tracks intermittently. SKIN: Pallor. Stage 2-3 sacral decubitus ulcer (dressing changed 12/14, sees wound care), stage 2-3 pressure ulcer R posterior calf, healing. Skin abrasion over L anterior warren. Several bruises over shins and forearms in various stages of healing. CARDIOVASCULAR: Normal rate, irregularly irregular rhythm. Normal S1/S2. No MRG RESPIRATORY: CTAB, no crackles or wheezes ABDOMEN: Soft, non-distended, NABS. MUSCULOSKELETAL: Extremities without clubbing, cyanosis, or edema. Wounds as documented above. Procedures Hemodialysis - Tue/Thur/Sat schedule Silva-endoscopy - 12/18/16 Medications and IVs Current Medications Medications (Trade) Dose Ordered Sig/Tavares Route Start Time Stop Time Status Last Admin (NS Flush) 2 ml UNSCH PRN IV FLUSH 12/15/16 07:45 Sodium Chloride 2 ml 2 ml BID IV FLUSH 12/15/16 09:00 12/20/16 08:57 (Levaquin 500 Mg Premix Inj) 100 ml @ 100 mls/hr Q48H IV 12/16/16 08:00 12/20/16 08:55 (Norvasc) 5 mg DAILY PO 12/15/16 09:00 Hold 12/17/16 09:21 (Ecotrin Ec) 81 mg DAILY PO 12/15/16 09:00 12/20/16 08:55 (Dulcolax Supp) 10 mg DAILY PRN RECTAL 12/15/16 08:00 12/17/16 21:47 (Phoslo) 667 mg TID PO 12/15/16 09:00 12/20/16 08:56 (Coreg) 3.125 mg Q12HR PO 12/15/16 09:00 Hold 12/17/16 21:07 (Plavix) 75 mg DAILY PO 12/15/16 09:00 Hold 12/18/16 08:55 (Lasix) 20 mg DAILY PO 12/15/16 09:00 Hold 12/17/16 09:20 (Xalatan 0.005% Opth Soln) 1 drop HS EACH EYE 12/15/16 21:00 12/19/16 21:02 (Synthroid) 112 mcg DAILY@06 PO 12/15/16 08:09 12/20/16 06:26 (Pravachol) 40 mg DAILY PO 12/15/16 09:00 12/20/16 08:55 (Miralax) 17 gm DAILY PO 12/15/16 09:00 12/20/16 08:54 (Polly-Colace) 2 tab BID PRN PO 12/15/16 08:00 (Desyrel) 50 mg HS PO 12/15/16 21:00 12/19/16 21:01 (Nephrocaps) 1 cap DAILY PO 12/15/16 09:00 12/17/16 09:20 (Vitamin D3) 2,000 units DAILY PO 12/15/16 09:00 12/20/16 08:55 Non-Formulary Medication 1 can DAILY PO 12/15/16 09:00 12/20/16 08:58 (Zofran Odt) 4 mg Q8HR PRN PO 12/15/16 08:00 (Ofirmev Inj) 1,000 mg Q6H IV 12/15/16 15:00 12/20/16 08:55 Collagenase 1 applic 1 applic DAILY TOPICAL 12/16/16 09:00 12/20/16 08:56 (NS 1000 ml Inj) 1,000 ml @ 0 mls/hr Q0M PRN IV 12/15/16 16:49 12/19/16 05:22 Heparin Sodium (Porcine) 8000 units 8,000 units UNSCH PRN IVF 12/15/16 17:00 Hold Sodium Chloride 1,000 ml @ 200 mls/hr Q5H PRN IV 12/15/16 16:49 (NS 1000 ml Inj) 1,000 ml @ 0 mls/hr Q0M PRN IV 12/15/16 16:49 (Mannitol Inj) 12.5 gm UNSCH PRN IV 12/15/16 17:00 12/19/16 09:28 (Albumin 25% Inj) 25 gm UNSCH PRN IV 12/15/16 17:00 (NS Flush) 5 ml UNSCH PRN IV FLUSH 12/15/16 17:00 (Heparin Inj) UNSCH PRN .XX 12/15/16 17:00 (Gentamicin (Dialysis) Inj) 20 mg UNSCH PRN IV 12/15/16 17:00 (Zofran Inj) 4 mg UNSCH PRN IV 12/15/16 17:00 (Tylenol) 650 mg UNSCH PRN PO 12/15/16 17:00 (Benadryl) 25 mg UNSCH PRN PO 12/15/16 17:00 (Nitrostat Sl) 0.4 mg UNSCH PRN SL 12/15/16 17:00 Hold (Catapres) 0.1 mg UNSCH PRN PO 12/15/16 17:00 Hold (Gelfoam 12 Mm/7 Mm Top) 1 foam UNSCH PRN TOP 12/15/16 17:00 12/16/16 14:03 Miscellaneous Information Patient in critical care unit? Ass... Q361D .XX 12/18/16 21:45 (Chlorhexidine 2% Cloth) 3 pack DAILY@04 TOPICAL 12/19/16 04:00 12/23/16 04:01 12/20/16 04:00 (Chlorhexidine 2% Cloth) 3 pack UNSCH PRN TOPICAL 12/18/16 21:45 12/23/16 21:38 Chlorhexidine Gluconate 15 ml 15 ml BID@08,20 MT 12/19/16 08:00 12/20/16 08:00 (Diprivan 1000 Mg/100ml Inj) 100 ml @ 0 mls/hr TITRATE IV 12/18/16 23:15 12/20/16 02:27 (fentaNYL INJ) 50 mcg Q1H PRN IV PUSH 12/18/16 23:15 (Protonix Inj) 40 mg BID IV PUSH 12/19/16 21:00 12/20/16 08:57 (Epogen Inj) 10,000 units TuTh IV 12/19/16 12:30 12/19/16 15:18 (Kade Tyler MD R1) A/P Assessment and Plan 89 yo female with PMH of CHF with last echo 2014 showing EF 35%, ESRD on dialysis TTS, CAD s/p stenting, sacral decubitus ulcers presenting after being found on the ground at retirement. Sent to the ED for evaluation and was admitted for altered mental status and urinary tract infection. Discharge Planning Unclear; pending stabilization of medical issues and discussion with palliative care team (Kade Tyler MD R1) Attending Attestation Patient seen and examined, discussed with resident team. I agree with assessment and management as documented and discussed with me. Pt remains intubated and sedated. H/H stable. Appreciate specialists caring for patient. (Helen La MD) Problem List: (1) Acute upper GI bleed Status: Acute Plan: GIB noted by dropping H/H, large bloody BM on 12/18. Silva-endoscopy 12/18 showed bleeding peptic ulcers, now s/p cauterization. H/H up to stable around 12 over last 24 hours. Today AM decreased from 12.5 to 11.6 over 6 hours. - Gas Brazer consulted, appreciate recommendations - Attempting - GI consulted, appreciate recommendations - S/p silva-endoscopy; per GI 30-40% chance of re-bleeding - PPI = 40 mg Protonix IV BID - S/p 5 units PRBC, 2 units FFP - H/H seeming stable, but last check showed drop of 1 unit over 6 hour period - Scale back checks to Q8H; transfuse for Hgb < 7.0 or decrease of >= 2.0 over 6 hours - Palliative care consulted, appreciate assistance - Alternative code status = re-intubation okay, no chest compressions or shock, ACLS drugs okay - Would qualify for hospice given advanced age and medical comorbidities, will be ongoing discussion with family (2) Urinary tract infection Status: Resolved Plan: UA with leuk esterase and bacteria (catheterized sample). Leukocytosis but no fevers. UCx showing contaminant (50-100k mixed GPC). - s/p Levaquin dosed renally (500 mg Q48H), s/p coverage of 5 days with fluoroquinolone (cipro day 1, Levaquin x2 doses with each dose covering 48 hours ) (3) Altered mental status Status: Resolved Plan: In setting of elevated WBC and + bacteria and leuk esterase in catheterized urine sample, likely etiology is UTI. Pain from recent hip surgery could be component. EKG without tachycardia, ST-T wave changes; AFib with normal HR EEG showing no evidence of seizure disorder Troponins/EKG reassuring ECHO done, EF of 55 to 60%. Chest x-ray shows edema, no evidence of pneumonia UCx 50-100k CFU/mL mixed GPC - Has been getting Tylenol 1 g IV Q6H for pain, on discharge can consider scheduling 650 mg PO every 6-8 hours - Treating UTI (despite negative culture, patient improved with treatment) - Delirium prevention: sunlight, no sleeping during the day, hold sedating medications (4) CHF, chronic Status: Chronic Plan: EF 55-60%, no signs of pulmonary edema on exam - Continue home beta rock (5) ESRD (end stage renal disease) on dialysis Status: Chronic Plan: Initial creatine currently 2.63 which is about baseline, today is 2.97. Hemodialysis on a Sunday, , Sunday schedule. - Nephrology on board, appreciate recs - Continue phosphate binder, Ca, vitamin D - Continue outpatient dialysis - Renally dose medicines, avoid nephrotoxic agents (6) Anemia of renal disease Status: Chronic Plan: Patient's sudden drop in Hgb from ~8 to ~6 found to be due to acute GIB. Once stable baseline Hgb will still likely be slightly low due to renal disease. Serum iron 22 TIBC 150 % saturation ~15 - See above management for Acute Upper GIB. - Nephrology consulted, appreciate recs - Venofer as ordered by nephrology (daily) (7) Sacral decubitus ulcer Status: Chronic Plan: Stable from previous descriptions in outpatient setting, do not appear acutely infected on exam - Consult wound nurse, appreciate recs - Rotate patient every 2 hours - Santyl dressing changes daily on sacral ulcer, not on other ulcers - On discharge, continue treatment of wounds per patient's wound care physician (8) Essential hypertension Status: Chronic Plan: BP stable - Continue home Coreg, hold for BP < 90/50 (9) Coronary artery disease Status: Chronic Plan: S/p CABG - Continue home ASA, Plavix, Statin (10) History of right hip hemiarthroplasty Status: Chronic Plan: No abnormalities on X-ray - Pain as above (11) Paroxysmal atrial fibrillation Status: Chronic Plan: Had been on Coumadin previously, but due to recent bleed requiring hospital visit this was discontinued. - Continue rate control with beta rock - Holding ASA/Plavix (GIB) (12) Dementia Status: Chronic Plan: Dementia, at high risk for delirium - Continue home trazodone as needed for sleep - Delirium precautions (13) FEN/PPX Status: Acute Plan: Fluids: use with caution Elecs: Monitor and replete PRN Nutrition: Diet regular basic, Nepro supplementation (once extubated and cleared for oral intake) DVT: Held due to GIB sdw Dr. 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
[2016-12-20] MEDS ORDERED: BUMETANIDE INJ 1 MG/4 ML VIAL IV PUSH STA (11:17)
--- NOTE | 2016-12-20 11:57 | HHI.GIFU ---
Subjective Remarks Pt intubated, on vent. Per nurse coffee ground residue in NG but not enough to aspirate. Having maroon stools. Objective Vitals I&O Vital Signs Date Time Temp Pulse Resp B/P Pulse Ox O2 Delivery O2 Flow Rate FiO2 12/20/16 10:00 97 12/20/16 09:25 100 30 12/20/16 08:55 30 12/20/16 08:00 91 12/20/16 08:00 30 12/20/16 08:00 97.6 91 15 127/66 96 12/20/16 06:00 94 12/20/16 04:06 100 30 12/20/16 04:00 98 12/20/16 04:00 30 12/20/16 04:00 97.8 98 14 114/58 100 12/20/16 02:56 14 12/20/16 02:00 98 12/20/16 00:29 100 35 12/20/16 00:00 98.7 99 14 121/63 100 12/20/16 00:00 35 12/20/16 00:00 99 12/19/16 22:00 98 12/19/16 21:23 100 35 12/19/16 20:00 35 12/19/16 20:00 99 12/19/16 20:00 98.0 99 14 103/54 100 12/19/16 18:00 100 12/19/16 17:24 95 35 12/19/16 16:00 97.5 100 15 131/63 100 12/19/16 16:00 35 12/19/16 16:00 100 12/19/16 14:00 98 12/19/16 12:00 35 12/19/16 12:00 99 12/19/16 12:00 97.6 99 17 108/55 100 I/O 12/19/16 12/19/16 12/19/16 12/20/16 12/20/16 12/20/16 07:00 15:00 23:00 07:00 15:00 23:00 Intake Total 882 ml 602 ml 249 ml 347 ml Output Total 0 ml 1000 ml 1 ml 0 ml Balance 882 ml -398 ml 248 ml 347 ml Intake Oral 0 ml 0 ml 0 ml IV Total 882 ml 602 ml 219 ml 287 ml Tube Feeding 0 ml Other 30 ml 60 ml Output Urine Total 0 ml 0 ml Stool Total 1 ml Hemodialysis 1000 ml # Voids 0 # Bowel Movements 1 Laboratory Laboratory Tests Test 12/19/16 12/19/16 12/20/16 12/20/16 12:17 18:33 00:08 05:40 Hemoglobin 11.4 12.0 12.5 11.7 Hematocrit 32.3 34.4 37.1 34.8 White Blood Count 20.5 Red Blood Count 4.06 Mean Corpuscular Volume 85.7 Mean Corpuscular Hemoglobin 28.8 Mean Corpuscular Hemoglobin 33.6 Concent Red Cell Distribution Width 16.6 Platelet Count 237 Mean Platelet Volume 6.6 Neutrophils (%) (Auto) 84.2 Lymphocytes (%) (Auto) 8.7 Monocytes (%) (Auto) 6.0 Eosinophils (%) (Auto) 0.9 Basophils (%) (Auto) 0.2 Neutrophils # (Auto) 17.2 Lymphocytes # (Auto) 1.8 Monocytes # (Auto) 1.2 Eosinophils # (Auto) 0.2 Basophils # (Auto) 0.0 CBC Comment DIFF FINAL Differential Comment Sodium Level 136 Potassium Level 3.4 Chloride Level 98 Carbon Dioxide Level 26.4 Anion Gap 12 Blood Urea Nitrogen 34 Creatinine 2.77 Estimat Glomerular Filtration 16 Rate Random Glucose 58 Calcium Level 7.9 Date/Time Procedure Status Source Growth 12/18/16 14:30 Stool Occult Blood (LALY) - Final Complete Stool Stool HEMOCCULT POSITIVE Imaging Last Impressions Chest X-Ray 12/20/16 0000 Signed Impressions: Service Date/Time: Tuesday, December 20, 2016 09:00 - CONCLUSION: No significant change has occurred. Alvino García MD Hip and Pelvis X-Ray 12/15/16 0000 Signed Impressions: Service Date/Time: Thursday, December 15, 2016 05:00 - CONCLUSION: Intact total hip prosthesis for technique and extensive stool and osteopenia as above. Rigoberto Valencia MD Head CT 12/15/16 0000 Signed Impressions: Service Date/Time: Thursday, December 15, 2016 04:53 - CONCLUSION: Chronic and small vessel ischemic changes without any evidence for acute hemorrhage or mass effect. Rigoebrto Valencia MD Cervical Spine CT 12/15/16 0000 Signed Impressions: Service Date/Time: Thursday, December 15, 2016 04:53 - CONCLUSION: Neural foramina compromise right C3-4, right C5-C6 and bilateral lateral recess compromise C5- 6. Rigoberto Valencia MD Physical Exam HEENT: Normocephalic; atraumatic; no jaundice. NG tube with coffee ground appearing residue noted CHEST: CTA, diminished CARDIAC: RRR ABDOMEN: Soft, nondistended, nontender; no hepatosplenomegaly; bowel sounds are present in all four quadrants. EXTREMITIES: No clubbing, cyanosis. edema BUE SKIN: Normal; no rash; no jaundice. 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 Assessment and Plan Plan - Gi bleed- s/p EGD with cauterization 12/18/16 ----> bleeding ulcer antrum controlled with injection epinephrine and ablation. s/p transfusion PRBC x 4 and FFP x 2 on 12/18. Still with dark Maroon stools HH up to 11.7, 34.8 - Profound Anemia secondary to acute blood loss. Hgb did drop to 4.2, now up to 11.7 - Leukocytosis. WBC 20.5 - CHF with last echo 2014 showing EF 35% - ESRD on dialysis Tuesdays, , Saturdays - CAD s/p stenting, sacral decubitus ulcers, dementia per primary Plan: - Ok to start TF per primary - cont. supportive care - Cont. to hold plavix - Monitor hh - transfuse as needed - Patient was seen and examined by dr. De La Garza and myself and this note is written on his behalf. Chelo Horn [employer]CH[employer]IC Dec 20, 2016 11:57
[2016-12-20 16:00] LABS: HEMATOCRIT 31.6 % (35.0-46.0); REVIEW FLAG FINAL
--- NOTE | 2016-12-20 16:11 | HHI.FPPN ---
Addendum to progress note ADDENDUM Reason for addendum: Additonal documentation Additional information Revisited the patient this afternoon. Daughter by bedside. Currently PEEP 5, FiO2 of 30, sedation being weaned. She is waking up, responding to stimulation, and trying to initiate her own breaths. Upon discussion with the nurse, the plan is to attempt extubation at 5 PM. No evidence of acute bleeding currently. She is hemodynamically stable and doing well since this morning. No acute events since we saw her this morning. Vitals: 97.7 97 21 111/55 100 on 30 FiO2 PE: Gen: Waking up, responding to stimulation, opens eyes, some tracking HEENT: Normocephalic, NG tube in place, on mechanical ventilation Card: RRR, no murmur Lungs: CTAB, transmitted sounds from mechanical ventilator Abdomen: soft, nontender, normal bowel sounds Ext: Wounds as noted before Labs: Hgb: 10.9 Hct: 31.6 Assessment: 89 year old female with acute GI bleed, s/p ablation of gastric ulcers, currently intubated, hemodynamically stable. Plan: - Plan for extubation at 5 PM with nutrition instructor - Speech evaluation if extubation successful - Monitor serial H&H's - Updated daughter. - Update family with any status changes discussed with Albaro Thakkar MD R2 Dec 20, 2016 16:11
--- NOTE | 2016-12-20 17:19 | HHI.NPPN ---
Subjective History of Present Illness The patient is am 89 yo [place] female who is known to our services for ESRD on HD. She was brought to this facility as she was found on the floor of her NH. She is altered at the present, so no other information can be gathered. She has multiple abrasions on her LEs and her mouth is covered in blood. Uncertain if she bit her tongue. Imaging and labs reviewed. Appears she may have a UTI. Last HD yesterday---on TTS schedule. Interval History Patient still intubated and nonverbal. Daughter by bedside. Review of Systems General General Remarks Not obtainable today Objective Data Data 12/19/16 12/20/16 19:00 07:00 Intake Total 602 ml 596 ml Output Total 1000 ml 1 ml Balance -398 ml 595 ml Intake Oral 0 ml IV Total 602 ml 506 ml Tube Feeding 0 ml Other 90 ml Output Urine Total 0 ml Stool Total 1 ml Hemodialysis 1000 ml # Voids 0 Vital Signs Date Time Temp Pulse Resp B/P Pulse Ox O2 Delivery O2 Flow Rate FiO2 12/20/16 16:00 97 12/20/16 16:00 97.7 97 21 111/55 100 12/20/16 16:00 30 12/20/16 14:00 97 12/20/16 12:00 96 12/20/16 12:00 30 12/20/16 12:00 97.5 100 14 113/53 97 12/20/16 11:57 95 30 12/20/16 10:00 97 12/20/16 09:25 100 30 12/20/16 08:55 30 12/20/16 08:00 91 12/20/16 08:00 30 12/20/16 08:00 97.6 91 15 127/66 96 12/20/16 06:00 94 12/20/16 04:06 100 30 12/20/16 04:00 98 12/20/16 04:00 30 12/20/16 04:00 97.8 98 14 114/58 100 12/20/16 02:56 14 12/20/16 02:00 98 12/20/16 00:29 100 35 12/20/16 00:00 98.7 99 14 121/63 100 12/20/16 00:00 35 12/20/16 00:00 99 12/19/16 22:00 98 12/19/16 21:23 100 35 12/19/16 20:00 35 12/19/16 20:00 99 12/19/16 20:00 98.0 99 14 103/54 100 12/19/16 18:00 100 12/19/16 17:24 95 35 -: 12/20/16 1528 12/20/16 0540 Physical Exam General Appearance: Malnourished Appearance Remarks Very frail in appearance. Wasting of musculature of all limbs. Eyes Eye Exam: Sclera White Neck Neck Exam: Trachea Midline Pulmonary Resp Exam: Clear Bilaterally, Breath Sounds Equal, No Distress Cardiology CV Exam: Regular Gastrointestinal/Abdomen GI Exam: Soft, Non-Tender Integumentary Skin Exam: Clear, Warm Neurologic Neuro Exam: Awake, Moving All Extremities Assessment/Plan Problem List: (1) ESRD (end stage renal disease) on dialysis Plan: Patient to be extubated today. Remains be determined whether not the patient will tolerate same. Palliative care notes and consultation reviewed. Daughter by bedside and son will be coming in also. Opinion is is that hospice will have to be considered without dialysis at some point in the not too distant future when it no longer appears to be contributing significantly to her quality of life for her remaining time. Medications should be adjusted for the patient's ESRD. Avoid gadolinium (2) Altered mental status Plan: Patient appeared to be close to baseline prior to intubation. (3) Urinary tract infection Plan: Abx deferred to primary (4) Failure to thrive in adult Plan: Ongoing these last several months. Patient has been requesting to come off the dialysis machine early as an outpatient during her treatment but still indicated recently that she wanted to continue dialysis. She was advised however by being noncompliant with her dialysis treatments her overall prognosis is significantly reduced. (5) Anemia of renal disease Plan: Continue Epogen and Venofer. Plan The exam, history, and the medical decision-making described in the above note were completed with the assistance of the SALOME. I reviewed and agree with the findings presented. Problem Qualifiers (1) Altered mental status: Qualified Code: R41.0 - Delirium (2) Urinary tract infection: Qualified Code: N30.00 - Acute cystitis without hematuria Pio Morton MD Dec 20, 2016 17:19
--- NOTE | 2016-12-20 20:17 | HHI.HCPN ---
Reason for visit a. To assist with evaluation and management of symptoms including: dyspnea , encephalopathy b. To assist medical decision maker(s) with: better understanding of current medical conditions; weighing benefits/burdens of medical treatment options; making medical treatment decisions. . Subjective/Interval History No significant events overnight. Patient is sleepy,but easily arouses. When awake, will bite at ET tube. Clerical Assistant plans on weaning later today. At time of my visit, patient is off sedation. She arouses to voice/exam, but does not follow commands. Will drift back to sleep when not stimulated. Continues to have maroon stools. "Coffee ground" type NG residue. Hg has dropped from 12.5 to 11.7 to 10.9 over the course of the day. WBC 20.5. Creatinine 2.77. Micro shows no growth to date except for mixed gram positive in urine at time of admission. . Family/friend interactions spoke with daughter. She is looking forward to patient's extubation. She confirms the resuscitation status decision she and her brother had made yesterday. . Advance Directives Living Will: Never completed Health Care Surrogate: Never completed Durable Power of Adobe Block Maker: Copy in medical record Advance Directive Specifics Date completed: Health care POA form completed 09/08/2015. . Health Care Surrogate(s): Health care POA form lists : Brandy Small (daughter) and Cristóbal CastilloLisette Kaiden ( son) to serve together as health care surrogates. Documented care wishes: There is no written documentation of health care goals/preferences. . Objective Vital Signs Date Time Temp Pulse Resp B/P Pulse Ox O2 Delivery O2 Flow Rate FiO2 12/20/16 18:45 95 30 12/20/16 18:00 101 12/20/16 16:00 97 12/20/16 16:00 97.7 97 21 111/55 100 12/20/16 16:00 30 12/20/16 14:00 97 12/20/16 12:00 96 12/20/16 12:00 30 12/20/16 12:00 97.5 100 14 113/53 97 12/20/16 11:57 95 30 12/20/16 10:00 97 12/20/16 09:25 100 30 12/20/16 08:55 30 12/20/16 08:00 91 12/20/16 08:00 30 12/20/16 08:00 97.6 91 15 127/66 96 12/20/16 06:00 94 12/20/16 04:06 100 30 12/20/16 04:00 98 12/20/16 04:00 30 12/20/16 04:00 97.8 98 14 114/58 100 12/20/16 02:56 14 12/20/16 02:00 98 12/20/16 00:29 100 35 12/20/16 00:00 98.7 99 14 121/63 100 12/20/16 00:00 35 12/20/16 00:00 99 12/19/16 22:00 98 12/19/16 21:23 100 35 12/19/16 20:00 35 12/19/16 20:00 99 12/19/16 20:00 98.0 99 14 103/54 100 Intake & Output 12/20/16 12/20/16 07:00 19:00 Intake Total 596 ml 386 ml Output Total 1 ml 0 ml Balance 595 ml 386 ml Intake Oral 0 ml IV Total 506 ml 386 ml Tube Feeding 0 ml Other 90 ml Output Urine Total 0 ml 0 ml Stool Total 1 ml # Voids 0 . Physical Exam CONSTITUTIONAL/GENERAL: This is a pale, frail appearing patient, intubated and mechanically ventilated in an MICU bed. Eyes intermittently open. Unable to follow commands or answer questions. No obvious distress. TUBES/LINES/DRAINS: Orotracheal tube; Ariza catheter; peripheral IVs; SKIN: No jaundice, rashes, or lesions. Ecchymoses on upper extremities. Multiple skin tears on lower extremities. Skin temperature appropriate. Not diaphoretic. EYES: Pupils equal and round. . Extraocular motions intact. No scleral icterus. No injection or drainage. Fundi not examined. ENT: Looks toward voice. Nose without bleeding or purulent drainage. Throat without visible erythema, exudates, masses, or lesions though difficult to assess adequately due to intubations. NECK: Trachea midline. Supple. CARDIOVASCULAR: Regular rate and rhythm without murmurs, gallops, or rubs. No JVD. RESPIRATORY/CHEST: Symmetric, unlabored respirations. Clear to auscultation. Breath sounds equal bilaterally. No wheezes, rales, or rhonchi. GASTROINTESTINAL: Abdomen soft, non-tender, nondistended. No hepato-splenomegaly , or palpable masses. No guarding. Bowel sounds present. GENITOURINARY: Without palpable bladder distension. Ariza catheter in place. MUSCULOSKELETAL: Extremities without clubbing, cyanosis. No joint tenderness or effusion noted. No calf tenderness. No mottling or clubbing. LYMPHATICS: Not examined. NEUROLOGICAL: Off sedations but sleepy. Easily arouses to voice/exam. Unable to follow commands. Moves all extremities. PSYCHIATRIC: Unable to assess due to level of responsiveness. . Diagnostic Tests Laboratory Laboratory Tests Test 12/18/16 12/18/16 12/18/16 12/18/16 06:02 13:58 15:09 15:25 White Blood Count 18.2 TH/MM3 (4.0-11.0) Red Blood Count 2.09 MIL/MM3 (4.00-5.30) Hemoglobin 6.3 GM/DL 5.0 GM/DL 4.2 GM/DL (11.6-15.3) (11.6-15.3) (11.6-15.3) Hematocrit 19.7 % 15.6 % 12.4 % (35.0-46.0) (35.0-46.0) (35.0-46.0) Mean Corpuscular Volume 94.1 FL (80.0-100.0) Mean Corpuscular Hemoglobin 30.3 PG (27.0-34.0) Mean Corpuscular Hemoglobin 32.2 % Concent (32.0-36.0) Red Cell Distribution Width 17.4 % (11.6-17.2) Platelet Count 370 TH/MM3 (150-450) Mean Platelet Volume 6.3 FL (7.0-11.0) Neutrophils (%) (Auto) 81.2 % (16.0-70.0) Lymphocytes (%) (Auto) 8.0 % (9.0-44.0) Monocytes (%) (Auto) 9.2 % (0.0-8.0) Eosinophils (%) (Auto) 1.1 % (0.0-4.0) Basophils (%) (Auto) 0.5 % (0.0-2.0) Neutrophils # (Auto) 14.8 TH/MM3 (1.8-7.7) Lymphocytes # (Auto) 1.5 TH/MM3 (1.0-4.8) Monocytes # (Auto) 1.7 TH/MM3 (0-0.9) Eosinophils # (Auto) 0.2 TH/MM3 (0-0.4) Basophils # (Auto) 0.1 TH/MM3 (0-0.2) CBC Comment AUTO DIFF Differential Comment AUTO DIFF CONFIRMED Sodium Level 133 MEQ/L (136-145) Potassium Level 4.3 MEQ/L (3.5-5.1) Chloride Level 95 MEQ/L (98-107) Carbon Dioxide Level 27.6 MEQ/L (21.0-32.0) Anion Gap 10 MEQ/L (5-15) Blood Urea Nitrogen 32 MG/DL (7-18) Creatinine 4.07 MG/DL (0.50-1.00) Estimat Glomerular Filtration 10 ML/MIN (>89) Rate Random Glucose 101 MG/DL (74-106) Calcium Level 8.0 MG/DL (8.5-10.1) Ferritin 1270 NG/ML (8-252) Crossmatch Leukocyte-Reduced Red Blood Cells Blood Bank Comment Test 12/18/16 12/18/16 12/18/16 12/18/16 15:26 15:30 16:37 17:29 Blood Type A POSITIVE Antibody Screen NEGATIVE Crossmatch Leukocyte-Reduced Leukocyte-Reduced Red Blood Red Blood Cells Cells Blood Bank Comment Nasal Screen MRSA (PCR) NEGATIVE (NEGATIVE) Prothrombin Time 13.6 SEC (9.8-11.6) Prothromb Time International 1.2 RATIO Ratio Activated Partial 38.5 SEC Thromboplast Time (24.3-30.1) Test 12/18/16 12/18/16 12/19/16 12/19/16 20:50 22:35 03:07 06:56 Hemoglobin 9.6 GM/DL 7.6 GM/DL (11.6-15.3) (11.6-15.3) Hematocrit 28.3 % 22.3 % (35.0-46.0) (35.0-46.0) Blood Gas Puncture Site LT BRACHIAL Blood Gas Patient Temperature 98.6 Blood Gas HCO3 20 mmol/L (22-26) Blood Gas Base Excess -3.4 mmol/L (-2-2) Blood Gas Oxygen Saturation 96 % (90-100) Arterial Blood pH 7.43 (7.380-7.420) Arterial Blood Partial 31 mmHg (38-42) Pressure CO2 Arterial Blood Partial 240 mmHg Pressure O2 (61-120) Arterial Blood Oxygen Content 12.8 Vol % (12.0-20.0) Arterial Blood 2.4 % (0-4) Carboxyhemoglobin Arterial Blood Methemoglobin 1.2 % (0-2) Blood Gas Hemoglobin 9.1 G/DL (12.0-16.0) Oxygen Delivery Device VENTILATOR Blood Gas Ventilator Setting AC/500/14/5PEEP Blood Gas Inspired Oxygen 50 % White Blood Count 23.9 TH/MM3 (4.0-11.0) Red Blood Count 2.65 MIL/MM3 (4.00-5.30) Mean Corpuscular Volume 84.1 FL (80.0-100.0) Mean Corpuscular Hemoglobin 28.8 PG (27.0-34.0) Mean Corpuscular Hemoglobin 34.2 % Concent (32.0-36.0) Red Cell Distribution Width 17.4 % (11.6-17.2) Platelet Count 233 TH/MM3 (150-450) Mean Platelet Volume 6.9 FL (7.0-11.0) Prothrombin Time 12.7 SEC (9.8-11.6) Prothromb Time International 1.1 RATIO Ratio Activated Partial 36.2 SEC Thromboplast Time (24.3-30.1) Sodium Level 134 MEQ/L (136-145) Potassium Level 4.6 MEQ/L (3.5-5.1) Chloride Level 98 MEQ/L (98-107) Carbon Dioxide Level 23.6 MEQ/L (21.0-32.0) Anion Gap 12 MEQ/L (5-15) Blood Urea Nitrogen 53 MG/DL (7-18) Creatinine 4.01 MG/DL (0.50-1.00) Estimat Glomerular Filtration 11 ML/MIN (>89) Rate Random Glucose 122 MG/DL (74-106) Calcium Level 7.0 MG/DL (8.5-10.1) Protein Corrected Calcium 8.1 MG/DL (8.5-10.1) Total Protein 5.1 GM/DL (6.4-8.2) Blood Type A POSITIVE Crossmatch Leukocyte-Reduced Red Blood Cells Blood Bank Comment Test 4/11/17 12/19/16 12/19/16 12/20/16 07:36 12:17 18:33 00:08 Hemoglobin 8.5 GM/DL 11.4 GM/DL 12.0 GM/DL 12.5 GM/DL (11.6-15.3) (11.6-15.3) (11.6-15.3) (11.6-15.3) Hematocrit 24.1 % 32.3 % 34.4 % 37.1 % (35.0-46.0) (35.0-46.0) (35.0-46.0) (35.0-46.0) Test 12/20/16 12/20/16 05:40 15:28 White Blood Count 20.5 TH/MM3 (4.0-11.0) Red Blood Count 4.06 MIL/MM3 (4.00-5.30) Hemoglobin 11.7 GM/DL 10.9 GM/DL (11.6-15.3) (11.6-15.3) Hematocrit 34.8 % 31.6 % (35.0-46.0) (35.0-46.0) Mean Corpuscular Volume 85.7 FL (80.0-100.0) Mean Corpuscular Hemoglobin 28.8 PG (27.0-34.0) Mean Corpuscular Hemoglobin 33.6 % Concent (32.0-36.0) Red Cell Distribution Width 16.6 % (11.6-17.2) Platelet Count 237 TH/MM3 (150-450) Mean Platelet Volume 6.6 FL (7.0-11.0) Neutrophils (%) (Auto) 84.2 % (16.0-70.0) Lymphocytes (%) (Auto) 8.7 % (9.0-44.0) Monocytes (%) (Auto) 6.0 % (0.0-8.0) Eosinophils (%) (Auto) 0.9 % (0.0-4.0) Basophils (%) (Auto) 0.2 % (0.0-2.0) Neutrophils # (Auto) 17.2 TH/MM3 (1.8-7.7) Lymphocytes # (Auto) 1.8 TH/MM3 (1.0-4.8) Monocytes # (Auto) 1.2 TH/MM3 (0-0.9) Eosinophils # (Auto) 0.2 TH/MM3 (0-0.4) Basophils # (Auto) 0.0 TH/MM3 (0-0.2) CBC Comment DIFF FINAL Differential Comment Sodium Level 136 MEQ/L (136-145) Potassium Level 3.4 MEQ/L (3.5-5.1) Chloride Level 98 MEQ/L (98-107) Carbon Dioxide Level 26.4 MEQ/L (21.0-32.0) Anion Gap 12 MEQ/L (5-15) Blood Urea Nitrogen 34 MG/DL (7-18) Creatinine 2.77 MG/DL (0.50-1.00) Estimat Glomerular Filtration 16 ML/MIN (>89) Rate Random Glucose 58 MG/DL (74-106) Calcium Level 7.9 MG/DL (8.5-10.1) . Result Diagram: 12/20/16 1528 12/20/16 0540 Microbiology Microbiology Date/Time Procedure Status Source Growth 12/18/16 14:30 Stool Occult Blood ([facility]ALY) - Final Complete Stool Stool HEMOCCULT POSITIVE . Imaging Last Impressions Chest X-Ray 12/20/16 0000 Signed Impressions: Service Date/Time: Tuesday, December 20, 2016 09:00 - CONCLUSION: No significant change has occurred. Alvino García MD Hip and Pelvis X-Ray 12/15/16 0000 Signed Impressions: Service Date/Time: Thursday, December 15, 2016 05:00 - CONCLUSION: Intact total hip prosthesis for technique and extensive stool and osteopenia as above. Rigoberto Valencia MD Head CT 12/15/16 0000 Signed Impressions: Service Date/Time: Thursday, December 15, 2016 04:53 - CONCLUSION: Chronic and small vessel ischemic changes without any evidence for acute hemorrhage or mass effect. Rigoberto Valencia MD Cervical Spine CT 12/15/16 0000 Signed Impressions: Service Date/Time: Thursday, December 15, 2016 04:53 - CONCLUSION: Neural foramina compromise right C3-4, right C5-C6 and bilateral lateral recess compromise C5- 6. Rigoberto Valencia MD . Procedures * Intubation/mechanical ventilation * EGD with cauterization of gastric ulcer . Assessment and Plan Disease Oriented Problem List: (1) Acute upper GI bleed Comment: EGD of 12/18/16 revealed a gastric ulcer. Duodenitis without bleeding was also noted. . (2) Coronary artery disease Comment: Patient has had bypass surgery. (3) Essential hypertension (4) Paroxysmal atrial fibrillation (5) Hypothyroidism (acquired) (6) Sacral decubitus ulcer (7) ESRD (end stage renal disease) on dialysis Comment: Patient has been receiving hemodialysis for approximately 5 years (8) Altered mental status (9) Dementia Comment: Patient developed cognitive challenges following her second stroke. This seems to be more with reasoning and executive function than it is with short-term memory. . 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 First stroke --> good resolution. 2nd Stroke left her with problems with swallowing, speech, and executive function. . 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 . Symptom Scale: (1) Pain 0-10 Scale: Unable to quantify Comment: Patient with many years of lower extremity pain of uncertain etiology. A fentanyl drip has been available here. When analgesics and propofol are off, she is seeming agitated, but not necessarily painful. . . (2) Dyspnea 0-10 Scale: Unable to quantify Comment: Dyspnea currently controlled with mechanical ventilation. . (3) Encephalopathy 0-10 Scale: Unable to quantify (patient has underlying cognitive challenges. These have been exacerbated by what is either a metabolic encephalopathy or a multifactorial delirium.) Comment: Unable to follow commands when awake. Her baseline is unclear. Following her second stroke she had problems with executive function. . Pertinent Non-Medical Issues Psychosocial: Patient has a sonCristóbal-- who lives locally. Rashawn lives in [place]. Spiritual: Patient grew up in a fundamentalist tradition. Daughter reports she became bitter following the premature of her . Legal: No known living will. There is a completed health care power of state attorney document that gives: Health care surrogate designation to both of her children. Ethical issues impacting care: Patient is incapacitated to make her own medical decisions. It is not clear if she will regain capacity to do so. . Important Contacts * Cristóbal Richey (son and health co-health care POA) [phone] * Brandy Phillips (daughter and co-health care surrogate) . Prognosis Ms. Richey has not done well since her heart surgery -- CABG and tricuspid valve replacement-- several years ago. She has since suffered 2 strokes. Though she had some improvement after the first stroke. The second stroke left her with some swallowing issues, speech issues and some cognitive deficits. She has been frustrated with these deficits and has withdrawn socially. She is primarily wheelchair and bedbound. Daughter reports that her weight has fallen from a normal weight of approximately 160 pounds down to approximately 115 pounds. She has been receiving hemodialysis for approximately 5 years -- hemodialysis began shortly after her surgery which apparently also caused renal insufficiency. She suffered a hip fracture requiring repair about a month ago, and is now back in the hospital with respiratory failure, urinary tract infection, and a large gastrointestinal hemorrhage. Given the above, and her advanced age her prognosis is not great. It remains possible that she will survive the intensive care unit, and live to hospital discharge. However, given her trajectory leading up to this hospitalization and given her advanced age, significant relapse is likely. Life expectancy is probably well under a year. Whenever the patient or her family feel they want to "transition to comfort measures, she would be eligible for hospice services. . Code Status: Alternative Code (No chest compressions or shock; Yes intubate and ACLS drugs) Plan == Code Status: ALTERNATE CODE Spoke to son and daughter together. They want patient re-intubated if she is extubated and develops respiratory decompensation. Therefore , code status is ALTERNATE CODE. No shock / No chest compressions but Yes intubation / Yes ACLS drugs. == Decision making: Son and daughter are joint health care surrogates. == Goals: Son and daughter continue to want aggressive care short of the resuscitation limits noted above. They will re-evaluate as the clinical course evolves. They know the patient would not want to be dependent on a ventilator for the rest of her life and would not want to be sustained in a permanent vegetative state. == Pain: Patient has long-standing lower extremity pain of uncertain etiology. She also may be uncomfortable from her prolonged bedbound status; orotracheal intubation; Ariza catheter; and vascular access lines. Patient currently has a fentanyl drip to address pain. No further recommendations at this time. == Dyspnea: Patient's dyspnea is currently being controlled with mechanical ventilation. At this point there is reason to believe she will be able to wean. No further recommendations at this time. == Encephalopathy: Patient has some baseline cognitive deficits, particularly with executive function since her second stroke. Hard to evaluate while intubated. Hopefully, she will be succesfully weaned, will be able to talk, and we can better assess mental status. == Palliative care will continue to follow to assist with symptom management and to further clarify goals of medical treatment as the clinical course evolves. . Alexander Martinez MD Dec 20, 2016 20:16
[2016-12-20] MEDS: traZODone HCL 50 MG TAB PO SCH (20:21)
[2016-12-20] MEDS: LATANOPROST 0.005% OPHT SOLN 2.5 ML BTL EACH EYE SCH (20:22)
[2016-12-20 23:29] LABS: REVIEW FLAG FINAL
[2016-12-21] VITALS (19 sets, daily range): BP systolic 107–125; BP diastolic 58–86; PULSE 80–119; RESP 14–20; TEMP 97.2–98.6; O2SAT 92–100
[2016-12-21] MEDS: CHLORHEXIDINE GLUCONATE 2 % 1 PACK (2 CLOTHS)(taper/protocol) TOPICAL SCH (04:00)
[2016-12-21] MEDS: ACETAMINOPHEN 1000 MG/100 ML VIAL IV SCH ×2 (04:50→08:31)
[2016-12-21] MEDS: LEVOTHYROXINE SODIUM 112 MCG TAB PO SCH (04:50)
[2016-12-21 04:52] LABS: AUTOMATED NEUTROPHIL # 17.4 TH/MM3 (1.8-7.7); BASOPHIL # 0.1 TH/MM3 (0-0.2); BASOPHIL % 0.6 % (0.0-2.0); EOSINOPHIL # 0.1 TH/MM3 (0-0.4); EOSINOPHIL % 0.5 % (0.0-4.0); HEMATOCRIT 32.7 % (35.0-46.0); LYMPH % 7.7 % (9.0-44.0); LYMPHOCYTE # 1.6 TH/MM3 (1.0-4.8); MEAN CELL VOLUME 86.6 FL (80.0-100.0); MEAN CORPUSCULAR HEMOGLOBIN 29.5 PG (27.0-34.0); MONO % 6.1 % (0.0-8.0); NEUT % 85.1 % (16.0-70.0); PLATELET COUNT 262 TH/MM3 (150-450); RED BLOOD COUNT 3.78 MIL/MM3 (4.00-5.30); RED CELL DISTRIBUTION WIDTH 16.2 % (11.6-17.2); WHITE BLOOD COUNT 20.5 TH/MM3 (4.0-11.0)
[2016-12-21 05:09] LABS: HEMO FLAGS AUTO DIFF
[2016-12-21 05:15] LABS: POTASSIUM 3.7 MEQ/L (3.5-5.1)
[2016-12-21 06:48] LABS: BANDS 2 % (0-6); BASOPHILS 2 % (0-2); POLYS (SEG NEUTROPHILS) 81 % (16-70); WBC DIFF SAMPLE 100
[2016-12-21 06:49] LABS: PLATELET ESTIMATE SMEAR NORMAL (NORMAL); PLATELET MORPHOLOGY NORMAL (NORMAL); SCAN/DIFF FINAL DIFF MANUAL
[2016-12-21] MEDS: NUTRITIONAL SUPPLEMENTS PO SCH (08:33)
[2016-12-21] MEDS: POLYETHYLENE GLYCOL 17 GM PKG PO SCH (08:33)
[2016-12-21] MEDS: CALCIUM ACETATE 667 MG CAP PO SCH ×3 (08:34→17:07)
[2016-12-21] MEDS: VITAMIN B CMPLX/VITC/FOLIC AC CAP PO SCH (08:34)
[2016-12-21] MEDS: PRAVASTATIN SOD 40 MG TAB PO SCH (08:35)
[2016-12-21] MEDS: CHOLECALCIFEROL (VIT D3) 1000 UNIT TAB PO SCH (08:35)
[2016-12-21] MEDS: ASPIRIN EC 81 MG TABEC PO SCH (08:35)
[2016-12-21] MEDS: PANTOPRAZOLE SODIUM 40 MG VIAL IV PUSH SCH ×2 (08:36→22:13)
[2016-12-21] MEDS: SODIUM CHLORIDE 0.9% FLUSH 10 ML FLUSH IV FLUSH SCH ×2 (08:36→22:13)
[2016-12-21] MEDS: CHLORHEXIDINE 0.12% (ORAL KIT) 15 ML CUP MT SCH ×2 (08:37→22:14)
[2016-12-21] MEDS: COLLAGENASE OINT 30 GM TUBE TOPICAL SCH (08:37)
--- NOTE | 2016-12-21 08:43 | HHI.CCPN ---
Subjective Remarks/Hospital Course Hospital Course: This is an 89yF with history of congestive heart failure with a prior EF of 35% , end-stage renal disease on HD who initially presented to the hospital with urinary tract infection. She was actually scheduled to be discharged today when she had a significant hemoglobin drop from 7.7 --> 6.3, rechecked and was down to 5. At that time, she did not have any overt signs of bleeding. However , this afternoon she had a large melanotic bowel movement and became hemodynamically unstable with SBP in the 80s, and felt very fatigued. A rapid response was called. I immediately evaluated the patient. She was diaphoretic and hypotensive. very pale appearing. We immediately ordered 2 units uncrossmatched emergency release blood from the blood bank, and we transferred her emergently to the ICU. At this point, she also had no iv access. Vascular access team was at bedside and placed an 18g piv for us. I additionally placed a second 18g piv so we could maintain 2 large bore piv access at all times. Unfortunately, due to the hemodynamically unstable nature of the patient, additional information is unobtainable from the patient. The family medicine team did talk with her son and medical decision maker, and he stated that he wanted to keep the DNR status in place. He did say that transient intubation for a GI procedure would be acceptable for her as long as long-term ventilation was not considered. We will proceed with medically aggressive care with DNR in place and intubation only for procedures. Subjective: 12/19: GI secured multiple gastric ulcers with cauterization and epinephrine. intubated for airway protection and left intubated to watch clinical course. this morning received 2 units prbc with appropriate response. IHD today. I had a long talk with her daughter, where I reiterated that the decision by the family to intubate the patient for this one procedure is a reasonable one, but if she did not extubate on pathway, or if she extubated and failed from a pulmonary standpoint, the entire family agrees that the patient was strict in her wishes to remain DNR/DNI, and a re-intubation for pulmonary reasons was likely against her wishes. 12/20: Patient remains intubated, sedated with propofol. Wakes up follows commands. WBC improving 23.9 to 20, Hb stable. Chest x-ray pending 12/21: Patient is lethargic and week but wakes up and follows commands. Hypoglycemic with blood sugar in 50s, receiving orange juice through OG tube Objective Vital Signs Date Time Temp Pulse Resp B/P Pulse Ox O2 Delivery O2 Flow Rate FiO2 12/21/16 07:25 100 30 12/21/16 06:00 90 12/21/16 04:00 98.6 18 108/62 12/18/16 21:00 Mechanical Ventilator Intake and Output 12/20/16 12/20/16 12/21/16 08:00 16:00 00:00 Intake Total 347 ml 386 ml 125 ml Output Total 0 ml 0 ml 0 ml Balance 347 ml 386 ml 125 ml Result Diagram: 12/21/16 0414 12/21/16 0414 Other Results Microbiology Date/Time Procedure Status Source Growth 12/18/16 14:30 Stool Occult Blood ([facility]) - Final Complete Stool Stool HEMOCCULT POSITIVE Objective Remarks GENERAL: Frail, elderly lady, intubated,not on any sedation HEENT: Normocephalic. Atraumatic. Pupils equal, round, reactive, conjugate. Mucous membranes moist. NECK: No JVD. Trachea is midline. CHEST: Mildly tachypneic. Clear to auscultation. On CPAP 10/5 CARDIOVASCULAR: Normal rate, regular rhythm. No appreciable murmurs. ABDOMEN: Soft, nontender, nondistended. No guarding. MUSCULOSKELETAL: No peripheral edema. Distal pulses 2+. NEUROLOGICAL: RASS -2. briskly purposeful. Follows commands in upper extremities and answers by nodding her head. Weak A/P Assessment and Plan Assessment: This is an 89-year-old female with ESRD, cardiomyopathy EF 35% and active GI bleed, s/p EGD with cauterization and injection of multiple high risk gastric ulcers. She is now hemodynamically stable, s/p IHD, her hgb improved appropriately. We will work towards weaning to extubate the patient. Patient is ALT CODE (intubation only) Plan: 1. Upper GI Bleed -- continue to trend H&H. Stable. No active GIB -- GI following -- iv bid ppi -- npo 2. Intubation secondary to airway protection -- SBT with possible extubation. certainly her age and comorbidities make her high risk to fail SBT or trial of extubation. -- Family wants re intubation if failed -- ABG CXR today 3. ESRD on HD -- HD planned for today. -- Nephrology following. 4. Anemia secondary to acute blood loss -- s/p 2 units prbc 12/19 with appropriate rise in hgb. -- does not meet transfusion triggers at this time. -- serial H&H 5. uremic platelet dysfunction -- s/p DDAVP on 12/18 prophy: scds. holding pharmacologic dvt prophy given recent active upper GI bleed. iv bid ppi. Dispo: remain in ICU. Possible extubation today. Failed SBT yesterday Level 2 Emely Loyd MD Dec 21, 2016 08:43
[2016-12-21] MEDS ORDERED: ROCURONIUM INJ 50 MG/5 ML VIAL IV ONE (09:00)
[2016-12-21] MEDS ORDERED: fentaNYL CITRATE 250 MCG/5 ML AMP IV PUSH ONE (09:00)
[2016-12-21] MEDS ORDERED: ACETAMINOPHEN 1000 MG/100 ML VIAL IV PRN (09:00)
[2016-12-21] MEDS ORDERED: MIDAZOLAM HCL 5 MG/5 ML VIAL IV PUSH ONE (09:00)
[2016-12-21] MEDS ORDERED: DEXTROSE 50% IN WATER 50 ML SYRINGE ONE (09:07)
--- NOTE | 2016-12-21 09:07 | RADRPT ---
EXAM DATE/TIME: 12/21/2016 08:32 CORRECTION Corrected on: December 21, 2016; [facility] COMPARISON: CHEST SINGLE AP, December 20, 2016, 9:00. INDICATIONS : Respiratory distress. MEDICAL HISTORY : Hypertension. Hypothyroidism. Hypercholesterolemia. Macular degeneration. Atrial fibrillation. Cardio vascular disease. COPD. Hyperlipidema. CHF. Diabetes II. SURGICAL HISTORY : Tricuspid valve replacement. Left lower lobe lumpectomy. Lumbar fusion. ENCOUNTER: Subsequent ACUITY: 4 - 6 days PAIN SCORE: Non-responsive. LOCATION: Bilateral chest FINDINGS: Total opacification of the left lung has developed since the prior exam. Endotracheal and nasogastric tubes remain in place. Cardiomediastinal silhouette shifted to the left and the right lung is hyperinflated. Postsurgical changes following CABG and cardiac valve replacement are again noted. CONCLUSION: Total opacification of the left hemithorax with shift of the mediastinum characterist ic of left pleural effusion and underlying lung collapse. Endobronchial occlusion is suspected. Hyperinflated right lung with small right pleural effusion. Chin Noel MD on December 21, 2016 at 9:03 Board Certified Radiologist. This report was verified electronically. Chin Noel MD on December 21, 2016 at 9:20 Board Certified Radiologist. This report was verified electronically.
[2016-12-21] MEDS ORDERED: ETOMIDATE 20 MG/10 ML VIAL ONE (10:26)
[2016-12-21] MEDS ORDERED: PROPOFOL 500 MG/50 ML INJ 50 ML ONE (10:27)
[2016-12-21] MEDS ORDERED: PROPOFOL 1000 MG/100 ML INJ 100 ML IV SCH (10:30)
[2016-12-21] MEDS ORDERED: ETOMIDATE 20 MG/10 ML VIAL IV PUSH ONE (10:30)
--- NOTE | 2016-12-21 11:24 | HHI.FPPN ---
Subjective Remarks Overnight no acute events. Patient took a while to wake up from sedation so extubation was not attempted. This morning more awake, responsive to yes/no questions. Trying to reach up and take tube out; in soft restraints. Denies CP, abdominal pain. Has discomfort from ET tube. Afebrile. (Kade Tyler MD R1) Objective Vitals Vital Signs Date Time Temp Pulse Resp B/P Pulse Ox O2 Delivery O2 Flow Rate FiO2 12/21/16 10:45 100 100 12/21/16 07:25 100 30 12/21/16 07:25 30 12/21/16 06:00 90 12/21/16 04:21 100 30 12/21/16 04:00 100 12/21/16 04:00 98.6 80 18 108/62 96 12/21/16 02:00 100 12/21/16 01:49 92 30 12/21/16 00:00 98.5 100 14 125/72 100 12/21/16 00:00 100 12/20/16 22:30 100 30 12/20/16 22:00 100 12/20/16 20:00 99.0 101 16 102/55 100 12/20/16 20:00 101 12/20/16 18:45 95 30 12/20/16 18:00 101 12/20/16 16:00 97 12/20/16 16:00 97.7 97 21 111/55 100 12/20/16 16:00 30 12/20/16 14:00 97 12/20/16 12:00 96 12/20/16 12:00 30 12/20/16 12:00 97.5 100 14 113/53 97 12/20/16 11:57 95 30 I/O 12/20/16 12/20/16 12/20/16 12/21/16 12/21/16 12/21/16 07:00 15:00 23:00 07:00 15:00 23:00 Intake Total 347 ml 386 ml 125 ml 125 ml Output Total 0 ml 0 ml 0 ml 50 ml Balance 347 ml 386 ml 125 ml 75 ml Intake Oral 0 ml IV Total 287 ml 386 ml 65 ml 65 ml Tube Feeding 0 ml Other 60 ml 60 ml 60 ml Output Urine Total 0 ml 0 ml 0 ml 0 ml Stool Total 50 ml (Kade Tyler MD R1) Result Diagram: 12/21/16 0414 12/21/16 0414 Imaging Last Impressions Chest X-Ray 12/21/16 0000 Signed Impressions: Service Date/Time: December 08:32 - CONCLUSION: Total opacification of the left hemithorax with shift of the mediastinum characteristic of left pleural effusion and underlying lung collapse. Endobronchial occlusion is suspected. Hyperinflated right lung with small right pleural effusion. Chin Noel MD Hip and Pelvis X-Ray 12/15/16 0000 Signed Impressions: Service Date/Time: Thursday, December 15, 2016 05:00 - CONCLUSION: Intact total hip prosthesis for technique and extensive stool and osteopenia as above. Rigoberto Valencia MD Head CT 12/15/16 0000 Signed Impressions: Service Date/Time: Thursday, December 15, 2016 04:53 - CONCLUSION: Chronic and small vessel ischemic changes without any evidence for acute hemorrhage or mass effect. Rigoberto Valencia MD Cervical Spine CT 12/15/16 0000 Signed Impressions: Service Date/Time: Thursday, December 15, 2016 04:53 - CONCLUSION: Neural foramina compromise right C3-4, right C5-C6 and bilateral lateral recess compromise C5- 6. Rigoberto Valencia MD Objective Remarks GENERAL: Awake in bed, intubated. FIO2 30%. SKIN: Pallor. Stage 2-3 sacral decubitus ulcer (dressing changed 12/14, sees wound care), stage 2-3 pressure ulcer R posterior calf, healing. Skin abrasion over L anterior warren. Several bruises over shins and forearms in various stages of healing. CARDIOVASCULAR: Normal rate, irregularly irregular rhythm. Normal S1/S2. No MRG RESPIRATORY: CTAB, no crackles or wheezes. ET tube in place. On monitor patient making attempts to breath over ventilator assistance. ABDOMEN: Soft, non-distended, non-tender. MUSCULOSKELETAL: Extremities without clubbing, cyanosis, or edema. Wounds as documented above. NEURO: Awake, alert. Responds to yes/no questions. Cannot speak (intubated). Procedures Hemodialysis - Tue/Thur/Sat schedule Bianchi-endoscopy - 12/18/16 (Kade Tyler MD R1) A/P Assessment and Plan 89 yo female with PMH of CHF with last echo 2014 showing EF 35%, ESRD on dialysis TTS, CAD s/p stenting, sacral decubitus ulcers presenting after being found on the ground at residential. Sent to the ED for evaluation and was admitted for altered mental status and urinary tract infection. Discharge Planning Unclear; pending stabilization of medical issues and discussion with palliative care team (Kade Tyler MD R1) Attending Attestation Patient seen and examined, discussed with resident team. I agree with assessment and management as documented and discussed with me. Pt remains intubated. Required bronch today for mucus plug. Hemoglobin stable. Appreciate intensivists. (Helen La MD) Problem List: (1) Acute upper GI bleed Status: Acute Plan: GIB noted by dropping H/H, large bloody BM on 12/18. EGD 12/18 showed bleeding peptic ulcers, now s/p cauterization. H/H up to stable around 11 over last 24 hours. - Tag Marker consulted, appreciate recommendations - Attempting extubation later today if CPAP trials okay - GI consulted, appreciate recommendations - S/p EGD with cautery of peptic ulcers; per GI 30-40% chance of re-bleeding - PPI = 40 mg Protonix IV BID - S/p 6 units PRBC, 2 units FFP - H/H stable - Scale back checks to BID; transfuse for Hgb < 7.0 or decrease of >= 2.0 between checks - Palliative care consulted, appreciate assistance - Alternative code status = re-intubation okay, no chest compressions or shock, ACLS drugs okay - Would qualify for hospice given advanced age and medical comorbidities, will be ongoing discussion with family - Nutrition consult for dietary recommendations if patient does not end up getting extubated today (2) Leukocytosis Status: Acute Plan: Leukocytosis of 20.5 over last couple days with neutrophil predominance. S/p UTI treatment as below. Exam showing no focal findings. Could be early VAP or exaggerated stress response. - Repeat blood Cx, UA with reflex Cx - Stat blood culture for T >= 100.4, <= 96.5 - Repeat CXR post-extubation (3) Urinary tract infection Status: Resolved Plan: UA with leuk esterase and bacteria (catheterized sample). Leukocytosis but no fevers. UCx showing contaminant (50-100k mixed GPC). - s/p Levaquin dosed renally (500 mg Q48H), s/p coverage of 5 days with fluoroquinolone (cipro day 1, Levaquin x2 doses with each dose covering 48 hours ) (4) Altered mental status Status: Resolved Plan: In setting of elevated WBC and + bacteria and leuk esterase in catheterized urine sample, likely etiology is UTI. Pain from recent hip surgery could be component. EKG without tachycardia, ST-T wave changes; AFib with normal HR EEG showing no evidence of seizure disorder Troponins/EKG reassuring ECHO done, EF of 55 to 60%. Chest x-ray shows edema, no evidence of pneumonia UCx 50-100k CFU/mL mixed GPC - Has been getting Tylenol 1 g IV Q6H for pain, on discharge can consider scheduling 650 mg PO every 6-8 hours - Treating UTI (despite negative culture, patient improved with treatment) - Delirium prevention: sunlight, no sleeping during the day, hold sedating medications (5) CHF, chronic Status: Chronic Plan: EF 55-60%, no signs of pulmonary edema on exam - Continue home beta rock (6) ESRD (end stage renal disease) on dialysis Status: Chronic Plan: Initial creatine currently 2.63 which is about baseline, today is 2.97. Hemodialysis on a Sunday, , Sunday schedule. - Nephrology on board, appreciate recs - Continue phosphate binder, Ca, vitamin D - Continue outpatient dialysis - Renally dose medicines, avoid nephrotoxic agents (7) Anemia of renal disease Status: Chronic Plan: Patient's sudden drop in Hgb from ~8 to ~6 found to be due to acute GIB. Once stable baseline Hgb will still likely be slightly low due to renal disease. Serum iron 22 TIBC 150 % saturation ~15 - See above management for Acute Upper GIB. - Nephrology consulted, appreciate recs - Venofer as ordered by nephrology (daily) (8) Sacral decubitus ulcer Status: Chronic Plan: Stable from previous descriptions in outpatient setting, do not appear acutely infected on exam - Consult wound nurse, appreciate recs - Rotate patient every 2 hours - Santyl dressing changes daily on sacral ulcer, not on other ulcers - On discharge, continue treatment of wounds per patient's wound care physician (9) Essential hypertension Status: Chronic Plan: BP stable - Continue home Coreg, hold for BP < 90/50 (10) Coronary artery disease Status: Chronic Plan: S/p CABG - Continue home ASA, Plavix, Statin (11) History of right hip hemiarthroplasty Status: Chronic Plan: No abnormalities on X-ray - Pain as above (12) Paroxysmal atrial fibrillation Status: Chronic Plan: Had been on Coumadin previously, but due to recent bleed requiring hospital visit this was discontinued. - Continue rate control with beta rock - Holding ASA/Plavix (GIB) (13) Dementia Status: Chronic Plan: Dementia, at high risk for delirium - Continue home trazodone as needed for sleep - Delirium precautions (14) FEN/PPX Status: Acute Plan: Fluids: use with caution Elecs: Monitor and replete PRN Nutrition: Diet regular basic, Nepro supplementation (once extubated and cleared for oral intake) DVT: Held due to GIB sdw Dr. Julio dw Dr. 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
--- NOTE | 2016-12-21 11:39 | PD.PROCEDR ---
Procedure Note Procedure Elective reintubation with 8.0 ET tube to facilitate bronchoscopy INTUBATION: The patient was put in optimal position for the procedure. Patient was sedated and paralyzed and tube exchanger placed through the existing 7 ET tube. Carefully the existing ET tube was removed and new 8.0 ET tube was placed over the exchanger, with direct visualization with the glide scope. Tube placement was confirmed by visualization of the tube and balloon passing through the cords, capnometry and subsequent chest x-ray. Breath sounds were equal and well aerated bilaterally postintubation. No breath sounds over stomach. Patient tolerated procedure well. Emely Loyd MD Dec 21, 2016 11:39
--- NOTE | 2016-12-21 12:02 | PD.PROCEDR ---
Procedure Note Procedure Procedure: Fiberoptic Bronchoscopy Diagnosis/indication: Complete collapse left lung Consent: Obtained from family Anesthesia: Versed, Fentanyl and Rocuronium Description of the Procedure: The patient was sedated and mechanically ventilated, and placed on 100% FIO2 and a volume control mode of ventilation. The fiberoptic bronchoscope was inserted via ETT. The trachea, right and left mainstem bronchi, were evaluated. Left mainstem bronchus was completely occluded with thick yellow mucus plug. This was removed with aggressive lavage and suctioning. There was evidence of of L lower lobectomy. L upper lobe and lingular segmental bronchi with large amount of yellow secretions. These were lavaged and removed and BAL specimen collected. RUL bronchial tree was devoid of major secretions BAL samples: 1 BALBINA The patient tolerated the procedure well with no hemodynamic instability or hypoxia. There were no immediate complications noted. There was minimal EBL. A chest x-ray has been ordered. I personally performed the procedure. Emely Loyd MD Dec 21, 2016 12:02
[2016-12-21] MEDS: EPOETIN ALFA 10,000 UNITS/ML VIAL IV SCH (12:30)
--- NOTE | 2016-12-21 12:53 | RADRPT ---
EXAM DATE/TIME: 12/21/2016 11:40 [facility] COMPARISON: CHEST SINGLE AP, December 21, 2016, 8:32. INDICATIONS : Post bronchoscopy. MEDICAL HISTORY : Hypertension. Hypothyroidism. Hypercholesterolemia. Macular degeneration. Atrial fibrillation. Cardio vascular disease. COPD. Hyperlipidema. CHF. Diabetes II. SURGICAL HISTORY : Tricuspid valve replacement. Left lower lobe lumpectomy. Lumbar fusion. ENCOUNTER: Subsequent ACUITY: 4 - 6 days PAIN SCORE: Non-responsive. LOCATION: Bilateral chest FINDINGS: A single AP semierect view of the chest was obtained and again demonstrates the patient is status pos t median sternotomy. The endotracheal tube remains in place with the tip 3 cm from the kendy. The na sogastric tube remains in place. The heart size is within normal limits. The previously noted consoli dated opacity in the left lung has cleared with mild residual at the left lung base. CONCLUSION: The previously noted consolidation and or collapse in the left lung has cleared except for mild resid ual. Albaro Bower MD on December 21, 2016 at 12:47 Board Certified Radiologist. This report was verified electronically.
--- NOTE | 2016-12-21 14:41 | HHI.GIFU ---
Subjective Remarks Resting in bed. Sedated on vent. Getting HD. No active gi bleeding. Objective Vitals I&O Vital Signs Date Time Temp Pulse Resp B/P Pulse Ox O2 Delivery O2 Flow Rate FiO2 12/21/16 11:40 100 40 12/21/16 10:45 100 100 12/21/16 07:25 100 30 12/21/16 07:25 30 12/21/16 06:00 90 12/21/16 04:21 100 30 12/21/16 04:00 100 12/21/16 04:00 98.6 80 18 108/62 96 12/21/16 02:00 100 12/21/16 01:49 92 30 12/21/16 00:00 98.5 100 14 125/72 100 12/21/16 00:00 100 12/20/16 22:30 100 30 12/20/16 22:00 100 12/20/16 20:00 99.0 101 16 102/55 100 12/20/16 20:00 101 12/20/16 18:45 95 30 12/20/16 18:00 101 12/20/16 16:00 97 12/20/16 16:00 97.7 97 21 111/55 100 12/20/16 16:00 30 I/O 12/20/16 12/20/16 12/20/16 12/21/16 12/21/16 12/21/16 07:00 15:00 23:00 07:00 15:00 23:00 Intake Total 347 ml 386 ml 125 ml 125 ml Output Total 0 ml 0 ml 0 ml 50 ml Balance 347 ml 386 ml 125 ml 75 ml Intake Oral 0 ml IV Total 287 ml 386 ml 65 ml 65 ml Tube Feeding 0 ml Other 60 ml 60 ml 60 ml Output Urine Total 0 ml 0 ml 0 ml 0 ml Stool Total 50 ml Laboratory Laboratory Tests Test 12/20/16 12/20/16 12/21/16 15:28 22:29 04:14 Hemoglobin 10.9 11.7 11.1 Hematocrit 31.6 34.0 32.7 White Blood Count 20.5 Red Blood Count 3.78 Mean Corpuscular Volume 86.6 Mean Corpuscular Hemoglobin 29.5 Mean Corpuscular Hemoglobin 34.0 Concent Red Cell Distribution Width 16.2 Platelet Count 262 Mean Platelet Volume 6.7 Neutrophils (%) (Auto) 85.1 Lymphocytes (%) (Auto) 7.7 Monocytes (%) (Auto) 6.1 Eosinophils (%) (Auto) 0.5 Basophils (%) (Auto) 0.6 Neutrophils # (Auto) 17.4 Lymphocytes # (Auto) 1.6 Monocytes # (Auto) 1.2 Eosinophils # (Auto) 0.1 Basophils # (Auto) 0.1 CBC Comment AUTO DIFF Differential Total Cells 100 Counted Neutrophils % (Manual) 81 Band Neutrophils % 2 Lymphocytes % 7 Monocytes % 8 Basophils % 2 Neutrophils # (Manual) 17.0 Differential Comment FINAL DIFF MANUAL Platelet Estimate NORMAL Platelet Morphology Comment NORMAL Sodium Level 132 Potassium Level 3.7 Chloride Level 93 Carbon Dioxide Level 27.0 Anion Gap 12 Blood Urea Nitrogen 38 Creatinine 3.28 Estimat Glomerular Filtration 13 Rate Random Glucose 50 Calcium Level 7.8 Date/Time Procedure Status Source Growth 12/21/16 13:53 Aerobic Blood Culture Received Blood Peripheral Pending 12/21/16 13:53 Anaerobic Blood Culture Received Blood Peripheral Pending 12/18/16 14:30 Stool Occult Blood ([facility]) - Final Complete Stool Stool HEMOCCULT POSITIVE Imaging Last Impressions Chest X-Ray 12/21/16 0000 Signed Impressions: Service Date/Time: December 11:40 - CONCLUSION: The previously noted consolidation and or collapse in the left lung has cleared except for mild residual. Albaro Bower MD Hip and Pelvis X-Ray 12/15/16 0000 Signed Impressions: Service Date/Time: Thursday, December 15, 2016 05:00 - CONCLUSION: Intact total hip prosthesis for technique and extensive stool and osteopenia as above. Rigoberto Valencia MD Head CT 12/15/16 0000 Signed Impressions: Service Date/Time: Thursday, December 15, 2016 04:53 - CONCLUSION: Chronic and small vessel ischemic changes without any evidence for acute hemorrhage or mass effect. Rigoberto Valencia MD Cervical Spine CT 12/15/16 0000 Signed Impressions: Service Date/Time: Thursday, December 15, 2016 04:53 - CONCLUSION: Neural foramina compromise right C3-4, right C5-C6 and bilateral lateral recess compromise C5- 6. Rigoberto Valencia MD Physical Exam HEENT: Normocephalic; atraumatic; no jaundice. NG tube CHEST: CTA, diminished CARDIAC: RRR ABDOMEN: Soft, nondistended, nontender; no hepatosplenomegaly; bowel sounds are present in all four quadrants. EXTREMITIES: Multiple ecchymotic and skin tears edema BUE SKIN: Normal; no rash; no jaundice. 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 Assessment and Plan Plan ASSESSMENT: - Gi bleed. S/P EGD with cauterization (12/18/16) ----> bleeding ulcer antrum controlled with injection epinephrine and ablation. S/P 6 units PRBC, 2 units FFP. No active bleeding at this time. HH ..7. No active bleeding at this time. OGT clamped. Will start TF. - Profound Anemia secondary to acute blood loss. S/P 6 units PRBC, 2 units FFP. No active bleeding at this time. HH ..7 - Leukocytosis. WBC 20.5. - CHF with last echo 2014 showing EF 35% - ESRD on dialysis Tuesdays, , Saturdays - CAD s/p stenting, sacral decubitus ulcers, dementia per primary Plan: - Nepro start at 30 ml/hr, increase q4hrs until goal rate of 40 ml/hr - Cont. PPI - Monitor HH - Transfuse as needed - Supportive care - Further recommendations to follow based on results of above - Patient was seen and examined by dr. De La Garza and myself and this note is written on his behalf. Marjan Estrada Dec 21, 2016 14:41
[2016-12-21] MEDS: RESP: ALBUTEROL 2.5 MG/IPRATROPIUM 0.5 MG NEB (SCH) NEB ×2 (15:48→20:00)
[2016-12-21] MEDS: RESP: ACETYLCYSTEINE 20% 30 ML NEB NEB SCH ×2 (16:00→19:57)
[2016-12-21 16:06] LABS: HEMATOCRIT 34.8 % (35.0-46.0); REVIEW FLAG FINAL
[2016-12-21] MEDS: SODIUM CHLOR 0.9% 1000 ML INJ 1,000 ML IV PRN (16:22)
[2016-12-21] MEDS: ALBUMIN HUMAN 25% 25 GM/100 ML BAGP IV PRN (16:23)
[2016-12-21] MEDS: GELATIN 12 MM/7 MM FOAM TOP PRN (16:23)
--- NOTE | 2016-12-21 17:42 | HHI.NPPN ---
Subjective History of Present Illness The patient is am 89 yo [place] female who is known to our services for ESRD on HD. She was brought to this facility as she was found on the floor of her NH. She is altered at the present, so no other information can be gathered. She has multiple abrasions on her LEs and her mouth is covered in blood. Uncertain if she bit her tongue. Imaging and labs reviewed. Appears she may have a UTI. Last HD yesterday---on TTS schedule. Interval History The patient remains intubated. Noted that she had a mucous plug and is now status post bronchoscopy. Review of Systems General General Remarks Not obtainable today Objective Data Data 12/20/16 12/21/16 19:00 07:00 Intake Total 386 ml 250 ml Output Total 0 ml 50 ml Balance 386 ml 200 ml IV Total 386 ml 130 ml Other 120 ml Output Urine Total 0 ml 0 ml Stool Total 50 ml Vital Signs Date Time Temp Pulse Resp B/P Pulse Ox O2 Delivery O2 Flow Rate FiO2 12/21/16 15:50 100 40 12/21/16 11:40 100 40 12/21/16 10:45 100 100 12/21/16 07:25 100 30 12/21/16 07:25 30 12/21/16 06:00 90 12/21/16 04:21 100 30 12/21/16 04:00 100 12/21/16 04:00 98.6 80 18 108/62 96 12/21/16 02:00 100 12/21/16 01:49 92 30 12/21/16 00:00 98.5 100 14 125/72 100 12/21/16 00:00 100 12/20/16 22:30 100 30 12/20/16 22:00 100 12/20/16 20:00 99.0 101 16 102/55 100 12/20/16 20:00 101 12/20/16 18:45 95 30 12/20/16 18:00 101 -: 12/21/16 1544 12/21/16 0414 Microbiology 12/21/16 Aerobic Blood Culture, Received Pending 12/21/16 Anaerobic Blood Culture, Received Pending 12/21/16 Aerobic Blood Culture, Received Pending 12/21/16 Anaerobic Blood Culture, Received Pending Physical Exam General Appearance: Malnourished Appearance Remarks Very frail in appearance. Wasting of musculature of all limbs. Eyes Eye Exam: Sclera White Neck Neck Exam: Trachea Midline Pulmonary Resp Exam: Clear Bilaterally, Breath Sounds Equal, No Distress Cardiology CV Exam: Regular Gastrointestinal/Abdomen GI Exam: Soft, Non-Tender Integumentary Skin Exam: Clear, Warm Neurologic Neuro Exam: Moving All Extremities, Sedated Assessment/Plan Problem List: (1) ESRD (end stage renal disease) on dialysis Plan: The patient was seen status post hemodialysis today and tolerated same. An attempt will be made tomorrow to extubate the patient and hopefully this will be successful. Opinion is that hospice will have to be considered without dialysis at some point in the not too distant future when it no longer appears to be contributing significantly to her quality of life for her remaining time. Medications should be adjusted for the patient's ESRD. Avoid gadolinium (2) Altered mental status Plan: Patient appeared to be close to baseline prior to intubation. (3) Urinary tract infection Plan: Abx deferred to primary (4) Failure to thrive in adult Plan: Ongoing these last several months. Patient has been requesting to come off the dialysis machine early as an outpatient during her treatment but still indicated recently that she wanted to continue dialysis. She was advised however by being noncompliant with her dialysis treatments her overall prognosis is significantly reduced. (5) Anemia of renal disease Plan: Continue Epogen and Venofer. Problem Qualifiers (1) Altered mental status: Qualified Code: R41.0 - Delirium (2) Urinary tract infection: Qualified Code: N30.00 - Acute cystitis without hematuria Pio Morton MD Dec 21, 2016 17:42
--- NOTE | 2016-12-21 20:07 | HHI.HCPN ---
Reason for visit a. To assist with evaluation and management of symptoms including: dyspnea , encephalopathy, agitation b. To assist medical decision maker(s) with: better understanding of current medical conditions; weighing benefits/burdens of medical treatment options; making medical treatment decisions. . Subjective/Interval History Patient is awake and agitated at time of my visit this evening. She appears to be uncomfortable with the ET tube. She is on sedation vacation at the time. There was a plan to extubate today but CXR showed a unilateral white-out. Patient underwent bronchoscopy and mucous plug was removed. Extubation is on hold. No active GI bleeding noted today. Received hemodialysis today. . Family/friend interactions No family at bedside. . Advance Directives Living Will: Never completed Health Care Surrogate: Never completed Durable Power of Funnel Coater: Copy in medical record Advance Directive Specifics Date completed: Health care POA form completed 09/08/2015. . Health Care Surrogate(s): Health care POA form lists : Brandy Small (daughter) and Cristóbal Richey ( son) to serve together as health care surrogates. Documented care wishes: There is no written documentation of health care goals/preferences. . Objective Vital Signs Date Time Temp Pulse Resp B/P Pulse Ox O2 Delivery O2 Flow Rate FiO2 12/21/16 18:00 101 12/21/16 16:00 97.4 119 15 107/74 99 12/21/16 16:00 119 12/21/16 15:50 100 40 12/21/16 14:00 90 12/21/16 12:00 100 12/21/16 12:00 97.6 100 16 107/63 92 12/21/16 11:40 100 40 12/21/16 10:45 100 100 12/21/16 10:00 96 12/21/16 08:00 100 12/21/16 08:00 97.2 100 20 124/58 100 12/21/16 07:25 100 30 12/21/16 07:25 30 12/21/16 06:00 90 12/21/16 04:21 100 30 12/21/16 04:00 100 12/21/16 04:00 98.6 80 18 108/62 96 12/21/16 02:00 100 12/21/16 01:49 92 30 12/21/16 00:00 98.5 100 14 125/72 100 12/21/16 00:00 100 12/20/16 22:30 100 30 12/20/16 22:00 100 Intake & Output 12/21/16 12/21/16 07:00 19:00 Intake Total 250 ml 5 ml Output Total 50 ml 1050 ml Balance 200 ml -1045 ml IV Total 130 ml 5 ml Other 120 ml Output Urine Total 0 ml 0 ml Stool Total 50 ml 50 ml Hemodialysis 1000 ml . Physical Exam CONSTITUTIONAL/GENERAL: This is a pale, frail appearing patient, intubated and mechanically ventilated in an MICU bed. Awake, agitated, biting the ET tube. TUBES/LINES/DRAINS: Orotracheal tube; Ariza catheter; peripheral IVs; SKIN: No jaundice, rashes, or lesions. Ecchymoses on upper extremities. Multiple skin tears on lower extremities. Skin temperature appropriate. Not diaphoretic. EYES: Pupils equal and round. . Extraocular motions intact. No scleral icterus. No injection or drainage. Fundi not examined. ENT: Looks toward voice. Nose without bleeding or purulent drainage. Throat without visible erythema, exudates, masses, or lesions though difficult to assess adequately due to intubations. NECK: Trachea midline. Supple. CARDIOVASCULAR: Regular rate and rhythm without murmurs, gallops, or rubs. No JVD. RESPIRATORY/CHEST: Symmetric, unlabored respirations. Coarse breath sounds. Breath sounds equal bilaterally. No wheezes. GASTROINTESTINAL: Abdomen soft, non-tender, nondistended. No hepato-splenomegaly , or palpable masses. No guarding. Bowel sounds present. GENITOURINARY: Without palpable bladder distension. Ariza catheter in place. MUSCULOSKELETAL: Extremities without clubbing, cyanosis. No joint tenderness or effusion noted. No calf tenderness. No mottling or clubbing. LYMPHATICS: Not examined. NEUROLOGICAL: Off sedation and agitated. Unable to follow commands. Moves all extremities. PSYCHIATRIC: Difficult to assess due to intubation . . . Diagnostic Tests Laboratory Laboratory Tests Test 12/18/16 12/18/16 12/19/16 12/19/16 20:50 22:35 03:07 06:56 Hemoglobin 9.6 GM/DL 7.6 GM/DL (11.6-15.3) (11.6-15.3) Hematocrit 28.3 % 22.3 % (35.0-46.0) (35.0-46.0) Blood Gas Puncture Site LT BRACHIAL Blood Gas Patient Temperature 98.6 Blood Gas HCO3 20 mmol/L (22-26) Blood Gas Base Excess -3.4 mmol/L (-2-2) Blood Gas Oxygen Saturation 96 % (90-100) Arterial Blood pH 7.43 (7.380-7.420) Arterial Blood Partial 31 mmHg (38-42) Pressure CO2 Arterial Blood Partial 240 mmHg Pressure O2 (61-120) Arterial Blood Oxygen Content 12.8 Vol % (12.0-20.0) Arterial Blood 2.4 % (0-4) Carboxyhemoglobin Arterial Blood Methemoglobin 1.2 % (0-2) Blood Gas Hemoglobin 9.1 G/DL (12.0-16.0) Oxygen Delivery Device VENTILATOR Blood Gas Ventilator Setting AC/500/14/5PEEP Blood Gas Inspired Oxygen 50 % White Blood Count 23.9 TH/MM3 (4.0-11.0) Red Blood Count 2.65 MIL/MM3 (4.00-5.30) Mean Corpuscular Volume 84.1 FL (80.0-100.0) Mean Corpuscular Hemoglobin 28.8 PG (27.0-34.0) Mean Corpuscular Hemoglobin 34.2 % Concent (32.0-36.0) Red Cell Distribution Width 17.4 % (11.6-17.2) Platelet Count 233 TH/MM3 (150-450) Mean Platelet Volume 6.9 FL (7.0-11.0) Prothrombin Time 12.7 SEC (9.8-11.6) Prothromb Time International 1.1 RATIO Ratio Activated Partial 36.2 SEC Thromboplast Time (24.3-30.1) Sodium Level 134 MEQ/L (136-145) Potassium Level 4.6 MEQ/L (3.5-5.1) Chloride Level 98 MEQ/L (98-107) Carbon Dioxide Level 23.6 MEQ/L (21.0-32.0) Anion Gap 12 MEQ/L (5-15) Blood Urea Nitrogen 53 MG/DL (7-18) Creatinine 4.01 MG/DL (0.50-1.00) Estimat Glomerular Filtration 11 ML/MIN (>89) Rate Random Glucose 122 MG/DL (74-106) Calcium Level 7.0 MG/DL (8.5-10.1) Protein Corrected Calcium 8.1 MG/DL (8.5-10.1) Total Protein 5.1 GM/DL (6.4-8.2) Blood Type A POSITIVE Crossmatch Leukocyte-Reduced Red Blood Cells Blood Bank Comment Test 12/19/16 12/19/16 12/19/16 12/20/16 07:36 12:17 18:33 00:08 Hemoglobin 8.5 GM/DL 11.4 GM/DL 12.0 GM/DL 12.5 GM/DL (11.6-15.3) (11.6-15.3) (11.6-15.3) (11.6-15.3) Hematocrit 24.1 % 32.3 % 34.4 % 37.1 % (35.0-46.0) (35.0-46.0) (35.0-46.0) (35.0-46.0) Test 12/20/16 12/20/16 12/20/16 12/21/16 05:40 15:28 22:29 04:14 White Blood Count 20.5 TH/MM3 20.5 TH/MM3 (4.0-11.0) (4.0-11.0) Red Blood Count 4.06 MIL/MM3 3.78 MIL/MM3 (4.00-5.30) (4.00-5.30) Hemoglobin 11.7 GM/DL 10.9 GM/DL 11.7 GM/DL 11.1 GM/DL (11.6-15.3) (11.6-15.3) (11.6-15.3) (11.6-15.3) Hematocrit 34.8 % 31.6 % 34.0 % 32.7 % (35.0-46.0) (35.0-46.0) (35.0-46.0) (35.0-46.0) Mean Corpuscular Volume 85.7 FL 86.6 FL (80.0-100.0) (80.0-100.0) Mean Corpuscular Hemoglobin 28.8 PG 29.5 PG (27.0-34.0) (27.0-34.0) Mean Corpuscular Hemoglobin 33.6 % 34.0 % Concent (32.0-36.0) (32.0-36.0) Red Cell Distribution Width 16.6 % 16.2 % (11.6-17.2) (11.6-17.2) Platelet Count 237 TH/MM3 262 TH/MM3 (150-450) (150-450) Mean Platelet Volume 6.6 FL 6.7 FL (7.0-11.0) (7.0-11.0) Neutrophils (%) (Auto) 84.2 % 85.1 % (16.0-70.0) (16.0-70.0) Lymphocytes (%) (Auto) 8.7 % 7.7 % (9.0-44.0) (9.0-44.0) Monocytes (%) (Auto) 6.0 % (0.0-8.0) 6.1 % (0.0-8.0) Eosinophils (%) (Auto) 0.9 % (0.0-4.0) 0.5 % (0.0-4.0) Basophils (%) (Auto) 0.2 % (0.0-2.0) 0.6 % (0.0-2.0) Neutrophils # (Auto) 17.2 TH/MM3 17.4 TH/MM3 (1.8-7.7) (1.8-7.7) Lymphocytes # (Auto) 1.8 TH/MM3 1.6 TH/MM3 (1.0-4.8) (1.0-4.8) Monocytes # (Auto) 1.2 TH/MM3 1.2 TH/MM3 (0-0.9) (0-0.9) Eosinophils # (Auto) 0.2 TH/MM3 0.1 TH/MM3 (0-0.4) (0-0.4) Basophils # (Auto) 0.0 TH/MM3 0.1 TH/MM3 (0-0.2) (0-0.2) CBC Comment DIFF FINAL AUTO DIFF Differential Comment FINAL DIFF MANUAL Sodium Level 136 MEQ/L 132 MEQ/L (136-145) (136-145) Potassium Level 3.4 MEQ/L 3.7 MEQ/L (3.5-5.1) (3.5-5.1) Chloride Level 98 MEQ/L 93 MEQ/L (98-107) (98-107) Carbon Dioxide Level 26.4 MEQ/L 27.0 MEQ/L (21.0-32.0) (21.0-32.0) Anion Gap 12 MEQ/L (5-15) 12 MEQ/L (5-15) Blood Urea Nitrogen 34 MG/DL (7-18) 38 MG/DL (7-18) Creatinine 2.77 MG/DL 3.28 MG/DL (0.50-1.00) (0.50-1.00) Estimat Glomerular Filtration 16 ML/MIN (>89) 13 ML/MIN (>89) Rate Random Glucose 58 MG/DL 50 MG/DL (74-106) (74-106) Calcium Level 7.9 MG/DL 7.8 MG/DL (8.5-10.1) (8.5-10.1) Differential Total Cells 100 Counted Neutrophils % (Manual) 81 % (16-70) Band Neutrophils % 2 % (0-6) Lymphocytes % 7 % (9-44) Monocytes % 8 % (0-8) Basophils % 2 % (0-2) Neutrophils # (Manual) 17.0 TH/MM3 (1.8-7.7) Platelet Estimate NORMAL (NORMAL) Platelet Morphology Comment NORMAL (NORMAL) Test 12/21/16 15:44 Hemoglobin 11.8 GM/DL (11.6-15.3) Hematocrit 34.8 % (35.0-46.0) . Result Diagram: 12/21/16 1544 12/21/16 0414 Microbiology Microbiology Date/Time Procedure Status Source Growth 12/21/16 13:47 Aerobic Blood Culture Received Blood Peripheral Pending 12/21/16 13:47 Anaerobic Blood Culture Received Blood Peripheral Pending 12/21/16 13:53 Aerobic Blood Culture Received Blood Peripheral Pending 12/21/16 13:53 Anaerobic Blood Culture Received Blood Peripheral Pending Imaging Last Impressions Chest X-Ray 12/21/16 0000 Signed Impressions: Service Date/Time: December 11:40 - CONCLUSION: The previously noted consolidation and or collapse in the left lung has cleared except for mild residual. Albaro Bower MD Hip and Pelvis X-Ray 12/15/16 0000 Signed Impressions: Service Date/Time: Thursday, December 15, 2016 05:00 - CONCLUSION: Intact total hip prosthesis for technique and extensive stool and osteopenia as above. Rigoberto Valencia MD Head CT 12/15/16 0000 Signed Impressions: Service Date/Time: Thursday, December 15, 2016 04:53 - CONCLUSION: Chronic and small vessel ischemic changes without any evidence for acute hemorrhage or mass effect. Rigoberto Valencia MD Cervical Spine CT 12/15/16 0000 Signed Impressions: Service Date/Time: Thursday, December 15, 2016 04:53 - CONCLUSION: Neural foramina compromise right C3-4, right C5-C6 and bilateral lateral recess compromise C5- 6. Rigoberto Valencia MD . Procedures * Intubation/mechanical ventilation * EGD with cauterization of gastric ulcer * Bronchoscopy 12/21/16 * Hemodialysis. . . Assessment and Plan Disease Oriented Problem List: (1) Acute upper GI bleed Comment: EGD of 12/18/16 revealed a gastric ulcer. Duodenitis without bleeding was also noted. . (2) Coronary artery disease Comment: Patient has had bypass surgery. (3) Essential hypertension (4) Paroxysmal atrial fibrillation (5) Hypothyroidism (acquired) (6) Sacral decubitus ulcer (7) ESRD (end stage renal disease) on dialysis Comment: Patient has been receiving hemodialysis for approximately 5 years (8) Altered mental status (9) Dementia Comment: Patient developed cognitive challenges following her second stroke. This seems to be more with reasoning and executive function than it is with short-term memory. . 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 First stroke --> good resolution. 2nd Stroke left her with problems with swallowing, speech, and executive function. . 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 . Symptom Scale: (1) Pain 0-10 Scale: Unable to quantify Comment: Patient with many years of lower extremity pain of uncertain etiology. A fentanyl drip has been available here. When analgesics and propofol are off, she is seeming agitated, but not necessarily painful. . . (2) Dyspnea 0-10 Scale: Unable to quantify Comment: Dyspnea currently controlled with mechanical ventilation. . (3) Encephalopathy 0-10 Scale: Unable to quantify (patient has underlying cognitive challenges. These have been exacerbated by what is either a metabolic encephalopathy or a multifactorial delirium.) Comment: Unable to follow commands when awake. Her baseline is unclear. Following her second stroke she had problems with executive function. . Pertinent Non-Medical Issues Psychosocial: Patient has a sonCristóbal-- who lives locally. DaughterBrandy lives in [place]. Spiritual: Patient grew up in a fundamentalist tradition. Daughter reports she became bitter following the premature of her . Legal: No known living will. There is a completed health care power of traffic law attorney document that gives: Health care surrogate designation to both of her children. Ethical issues impacting care: Patient is incapacitated to make her own medical decisions. It is not clear if she will regain capacity to do so. . Important Contacts * Cristóbal Richey (son and health co-health care POA) [phone] * Brandy Alan (daughter and co-health care surrogate) . Prognosis Ms. Richey has not done well since her heart surgery -- CABG and tricuspid valve replacement-- several years ago. She has since suffered 2 strokes. Though she had some improvement after the first stroke. The second stroke left her with some swallowing issues, speech issues and some cognitive deficits. She has been frustrated with these deficits and has withdrawn socially. She is primarily wheelchair and bedbound. Daughter reports that her weight has fallen from a normal weight of approximately 160 pounds down to approximately 115 pounds. She has been receiving hemodialysis for approximately 5 years -- hemodialysis began shortly after her surgery which apparently also caused renal insufficiency. She suffered a hip fracture requiring repair about a month ago, and is now back in the hospital with respiratory failure, urinary tract infection, and a large gastrointestinal hemorrhage. Given the above, and her advanced age her prognosis is not great. It remains possible that she will survive the intensive care unit, and live to hospital discharge. However, given her trajectory leading up to this hospitalization and given her advanced age, significant relapse is likely. Life expectancy is probably well under a year. Whenever the patient or her family feel they want to "transition to comfort measures, she would be eligible for hospice services. . Code Status: Alternative Code (No chest compressions or shock; Yes intubate and ACLS drugs) Plan == Code Status: ALTERNATE CODE Spoke to son and daughter together. They want patient re-intubated if she is extubated and develops respiratory decompensation. Therefore , code status is ALTERNATE CODE. No shock / No chest compressions but Yes intubation / Yes ACLS drugs. == Decision making: Son and daughter are joint health care surrogates. == Goals: Son and daughter continue to want aggressive care short of the resuscitation limits noted above. They will re-evaluate as the clinical course evolves. They know the patient would not want to be dependent on a ventilator for the rest of her life and would not want to be sustained in a permanent vegetative state. == Pain: Patient has long-standing lower extremity pain of uncertain etiology. She also may be uncomfortable from her prolonged bedbound status; orotracheal intubation; Ariza catheter; and vascular access lines. Patient currently has a fentanyl drip to address pain. No further recommendations at this time. == Dyspnea: Patient's dyspnea is currently being controlled with mechanical ventilation. At this point there is reason to believe she will be able to wean. No further recommendations at this time. == Encephalopathy: Patient has some baseline cognitive deficits, particularly with executive function since her second stroke. Hard to evaluate while intubated. Hopefully, she will be succesfully weaned, will be able to talk, and we can better assess mental status. == Agitation: Appears to be caused mostly by endotracheal intubation. Hopefully, we can extubate tomorrow and this will help agitation problem. == Palliative care will continue to follow to assist with symptom management and to further clarify goals of medical treatment as the clinical course evolves. . Attestation To help prompt me to consider important information that might be impacting today's encounter and assessment, information from prior notes written by myself or my colleagues may have been "brought forward" into today's note. My signature on this note, however, is an attestation that I personally performed the exam, history, and/or decision-making noted today, and, unless otherwise indicated, the interactions with patient, family, and staff as well as the review of records all occurred today. I also attest that the listed assessment and stated plan reflect my best clinical judgment today based on the combination of historical information, prior notes, and today's exam/ interactions. When time spent is documented, it refers only to time spent today by the signer, or if indicated, combined time spent today by collaborating physician/nurse practitioner. . Alexander Martinez MD Dec 21, 2016 20:07
[2016-12-21] MEDS: LATANOPROST 0.005% OPHT SOLN 2.5 ML BTL EACH EYE SCH (22:13)
[2016-12-22] VITALS (19 sets, daily range): BP systolic 99–139; BP diastolic 53–89; PULSE 101–175; RESP 16–23; TEMP 97.7–99.1; O2SAT 92–100
[2016-12-22] MEDS: RESP: ALBUTEROL 2.5 MG/IPRATROPIUM 0.5 MG NEB (SCH) NEB ×6 (00:09→21:01)
[2016-12-22] MEDS: RESP: ACETYLCYSTEINE 20% 30 ML NEB NEB SCH ×3 (03:04→07:49)
[2016-12-22] MEDS: CHLORHEXIDINE GLUCONATE 2 % 1 PACK (2 CLOTHS)(taper/protocol) TOPICAL SCH (04:00)
[2016-12-22] MEDS: LEVOTHYROXINE SODIUM 112 MCG TAB PO SCH (05:28)
[2016-12-22 06:22] LABS: AUTOMATED NEUTROPHIL # 23.3 TH/MM3 (1.8-7.7); BASOPHIL # 0.1 TH/MM3 (0-0.2); BASOPHIL % 0.2 % (0.0-2.0); EOSINOPHIL # 0.1 TH/MM3 (0-0.4); EOSINOPHIL % 0.2 % (0.0-4.0); HEMATOCRIT 31.5 % (35.0-46.0); HEMO FLAGS DIFF FINAL; LYMPH % 4.4 % (9.0-44.0); LYMPHOCYTE # 1.1 TH/MM3 (1.0-4.8); MEAN CELL VOLUME 88.3 FL (80.0-100.0); MEAN CORPUSCULAR HEMOGLOBIN 29.6 PG (27.0-34.0); MEAN CORPUSCULAR HGB CONC 33.5 % (32.0-36.0); NEUT % 90.2 % (16.0-70.0); PLATELET COUNT 215 TH/MM3 (150-450); RED BLOOD COUNT 3.57 MIL/MM3 (4.00-5.30); RED CELL DISTRIBUTION WIDTH 16.4 % (11.6-17.2); WHITE BLOOD COUNT 25.9 TH/MM3 (4.0-11.0)
[2016-12-22 06:56] LABS: ALKALINE PHOSPHATASE 117 U/L (45-117); ALT (GPT) 9 U/L (10-53); ANION GAP 14 MEQ/L (5-15); AST (GOT) 15 U/L (15-37); BICARBONATE 25.5 MEQ/L (21.0-32.0); BLOOD UREA NITROGEN 26 MG/DL (7-18); CHLORIDE 94 MEQ/L (98-107); GLOMERULAR FILTRATION RATE 15 ML/MIN (>89); MAGNESIUM 1.6 MG/DL (1.5-2.5); POTASSIUM 3.4 MEQ/L (3.5-5.1); SODIUM (NA) 133 MEQ/L (136-145); TOTAL BILIRUBIN ADULT 0.7 MG/DL (0.2-1.0)
--- NOTE | 2016-12-22 07:05 | RADRPT ---
EXAM DATE/TIME: 12/22/2016 04:02 [facility] COMPARISON: CHEST SINGLE AP, December 21, 2016, 11:40. INDICATIONS : Shortness of breath. MEDICAL HISTORY : Hypertension. Chronic obstructive pulmonary disease. Congestive heart failure. SURGICAL HISTORY : Tricuspid valve replacement. Left lower lobe lumpectomy. ENCOUNTER: Subsequent ACUITY: 1 week PAIN SCORE: Non-responsive. LOCATION: Bilateral chest FINDINGS: The support devices remain in place. There is no pneumothorax. There is a parenchymal infiltrate in t he left lower lung which is about the same compared to the prior study. The right lung remains grossl y clear. The heart size is stable. CONCLUSION: No significant interval change. Fortino Hernadez MD on December 22, 2016 at 7:03 Board Certified Radiologist. This report was verified electronically.
[2016-12-22] MEDS: SODIUM CHLORIDE 0.9% FLUSH 10 ML FLUSH IV FLUSH SCH ×2 (08:58→20:37)
[2016-12-22] MEDS: LEVOFLOXACIN 500 MG PREMIX INJ 100 ML IV SCH (08:58)
[2016-12-22] MEDS: PANTOPRAZOLE SODIUM 40 MG VIAL IV PUSH SCH ×2 (08:58→20:37)
[2016-12-22] MEDS: POLYETHYLENE GLYCOL 17 GM PKG PO SCH (08:59)
[2016-12-22] MEDS: NUTRITIONAL SUPPLEMENTS PO SCH (08:59)
[2016-12-22] MEDS: ASPIRIN EC 81 MG TABEC PO SCH (08:59)
[2016-12-22] MEDS: CALCIUM ACETATE 667 MG CAP PO SCH ×3 (09:00→17:50)
[2016-12-22] MEDS: VITAMIN B CMPLX/VITC/FOLIC AC CAP PO SCH (09:00)
[2016-12-22] MEDS: CHOLECALCIFEROL (VIT D3) 1000 UNIT TAB PO SCH (09:00)
[2016-12-22] MEDS: PRAVASTATIN SOD 40 MG TAB PO SCH (09:00)
[2016-12-22] MEDS: COLLAGENASE OINT 30 GM TUBE TOPICAL SCH (09:02)
[2016-12-22] MEDS: CHLORHEXIDINE 0.12% (ORAL KIT) 15 ML CUP MT SCH ×2 (09:31→20:00)
--- NOTE | 2016-12-22 12:10 | HHI.CCPN ---
Subjective Remarks/Hospital Course Hospital Course: This is an 89yF with history of congestive heart failure with a prior EF of 35% , end-stage renal disease on HD who initially presented to the hospital with urinary tract infection. She was actually scheduled to be discharged today when she had a significant hemoglobin drop from 7.7 --> 6.3, rechecked and was down to 5. At that time, she did not have any overt signs of bleeding. However , this afternoon she had a large melanotic bowel movement and became hemodynamically unstable with SBP in the 80s, and felt very fatigued. A rapid response was called. I immediately evaluated the patient. She was diaphoretic and hypotensive. very pale appearing. We immediately ordered 2 units uncrossmatched emergency release blood from the blood bank, and we transferred her emergently to the ICU. At this point, she also had no iv access. Vascular access team was at bedside and placed an 18g piv for us. I additionally placed a second 18g piv so we could maintain 2 large bore piv access at all times. Unfortunately, due to the hemodynamically unstable nature of the patient, additional information is unobtainable from the patient. The family medicine team did talk with her son and medical decision maker, and he stated that he wanted to keep the DNR status in place. He did say that transient intubation for a GI procedure would be acceptable for her as long as long-term ventilation was not considered. We will proceed with medically aggressive care with DNR in place and intubation only for procedures. Subjective: 12/19: GI secured multiple gastric ulcers with cauterization and epinephrine. intubated for airway protection and left intubated to watch clinical course. this morning received 2 units prbc with appropriate response. IHD today. I had a long talk with her daughter, where I reiterated that the decision by the family to intubate the patient for this one procedure is a reasonable one, but if she did not extubate on pathway, or if she extubated and failed from a pulmonary standpoint, the entire family agrees that the patient was strict in her wishes to remain DNR/DNI, and a re-intubation for pulmonary reasons was likely against her wishes. 12/20: Patient remains intubated, sedated with propofol. Wakes up follows commands. WBC improving 23.9 to 20, Hb stable. Chest x-ray pending 12/21: Patient is lethargic and week but wakes up and follows commands. Hypoglycemic with blood sugar in 50s, receiving orange juice through OG tube 12/22: s/p Bronchoscopy yesterday with thick yellow mucus plug removed L main bronchus with re expansion of lung. Tolerating CPAP. Plan is to extubate today. Objective Vital Signs Date Time Temp Pulse Resp B/P Pulse Ox O2 Delivery O2 Flow Rate FiO2 12/22/16 10:35 99 Nasal Cannula 4 12/22/16 08:35 40 12/22/16 06:00 105 12/22/16 04:00 98.9 18 99/73 Intake and Output 12/21/16 12/21/16 12/22/16 08:00 16:00 00:00 Intake Total 125 ml 5 ml 196 ml Output Total 50 ml 50 ml 1000 ml Balance 75 ml -45 ml -804 ml Result Diagram: 12/22/16 0542 12/22/16 0542 Objective Remarks GENERAL: Frail, elderly lady, intubated,not on any sedation HEENT: Normocephalic. Atraumatic. Pupils equal, round, reactive, conjugate. Mucous membranes moist. NECK: No JVD. Trachea is midline. CHEST: Mildly tachypneic. On CPAP 06/17 CARDIOVASCULAR: Normal rate, regular rhythm. No appreciable murmurs. ABDOMEN: Soft, nontender, nondistended. No guarding. MUSCULOSKELETAL: No peripheral edema. Distal pulses 2+. NEUROLOGICAL: RASS -1. briskly purposeful. Follows commands in upper extremities and answers by nodding her head. Weak A/P Assessment and Plan Assessment: This is an 89-year-old female with ESRD, cardiomyopathy EF 35% and active GI bleed, s/p EGD with cauterization and injection of multiple high risk gastric ulcers. She is now hemodynamically stable, s/p IHD, her hgb improved appropriately. Weaning to extubate the patient. Patient is ALT CODE (intubation only) Plan: 1. Upper GI Bleed -- continue to trend H&H. Stable. No active GIB -- GI following -- iv bid ppi -- npo, start diet after extubation if stable 2. Intubation secondary to airway protection -- Complete atelectasis of L corina 12/21/16 s/p bronchoscopy and removal of mucus plug -- SBT with possible extubation. certainly her age and comorbidities make her high risk to fail SBT or trial of extubation. 3. ESRD on HD -- HD 12/21. -- Nephrology following. 4. Anemia secondary to acute blood loss -- s/p 2 units prbc 12/19 with appropriate rise in hgb. -- does not meet transfusion triggers at this time. -- serial H&H 5. uremic platelet dysfunction -- s/p DDAVP on 12/18 prophy: scds. holding pharmacologic dvt prophy given recent active upper GI bleed. iv bid ppi. Dispo: remain in ICU. Possible extubation today. Consult PT after extubation Level 2 Emely Loyd MD Dec 22, 2016 12:10
[2016-12-22] MEDS: PIPERACIL-TAZO 2.25 GM PREMIX 50 ML IV SCH ×2 (13:25→20:37)
[2016-12-22] MEDS ORDERED: POTASSIUM CHLORIDE 25 MEQ EFFERVESCENT TAB NG ONE (15:15)
--- NOTE | 2016-12-22 16:29 | HHI.NPPN ---
Subjective History of Present Illness The patient is am 89 yo [place] female who is known to our services for ESRD on HD. She was brought to this facility as she was found on the floor of her NH. She is altered at the present, so no other information can be gathered. She has multiple abrasions on her LEs and her mouth is covered in blood. Uncertain if she bit her tongue. Imaging and labs reviewed. Appears she may have a UTI. Last HD yesterday---on TTS schedule. Interval History Patient extubated. Nonverbal. His awake however. Review of Systems General General Remarks Not obtainable today Objective Data Data 12/21/16 12/22/16 19:00 07:00 Intake Total 5 ml 710 ml Output Total 1050 ml 100 ml Balance -1045 ml 610 ml IV Total 5 ml 410 ml Tube Feeding 200 ml Other 100 ml Output Urine Total 0 ml Stool Total 50 ml 100 ml Hemodialysis 1000 ml Vital Signs Date Time Temp Pulse Resp B/P Pulse Ox O2 Delivery O2 Flow Rate FiO2 12/22/16 13:07 98 Nasal Cannula 2.00 12/22/16 12:00 98.0 104 19 100/53 94 12/22/16 12:00 104 12/22/16 10:35 99 Nasal Cannula 4 12/22/16 10:00 120 12/22/16 08:35 100 40 12/22/16 08:00 40 12/22/16 08:00 108 12/22/16 08:00 98.7 108 23 110/59 97 12/22/16 07:45 40 12/22/16 07:39 100 40 12/22/16 06:00 105 12/22/16 04:00 98.9 106 18 99/73 94 12/22/16 04:00 40 12/22/16 04:00 106 12/22/16 03:20 100 40 12/22/16 02:00 108 12/22/16 00:10 95 40 12/22/16 00:00 99.1 105 18 139/89 92 12/22/16 00:00 105 12/22/16 00:00 40 12/21/16 22:00 105 12/21/16 20:00 98.3 104 18 124/86 97 12/21/16 20:00 40 12/21/16 20:00 104 12/21/16 19:45 94 40 12/21/16 18:00 101 -: 12/22/16 0542 12/22/16 0542 Microbiology 12/21/16 Gram Stain - Final, Resulted 12/21/16 Bronchial Culture - Preliminary, Resulted NO GROWTH IN 24 HOURS. 12/21/16 Fungal Smear - Final, Resulted 12/21/16 Fungal Culture, Resulted Pending 12/21/16 Acid Fast Stain, Received Pending 12/21/16 Mycobacterial Culture, Received Pending Physical Exam General Appearance: Malnourished Appearance Remarks Very frail in appearance. Wasting of musculature of all limbs. Eyes Eye Exam: Sclera White Neck Neck Exam: Trachea Midline Pulmonary Resp Exam: Clear Bilaterally, Breath Sounds Equal, No Distress Cardiology CV Exam: Regular Gastrointestinal/Abdomen GI Exam: Soft, Non-Tender Integumentary Skin Exam: Clear, Warm Extremeties Extremities Exam: Moderate Edema (all extremities.) Neurologic Neuro Exam: Moving All Extremities, Sedated Assessment/Plan Problem List: (1) ESRD (end stage renal disease) on dialysis Plan: Patient extubated successfully. Significant generalized edema. Secondary to hypoalbuminemia as well as end- stage renal disease. We'll try to improve edema with dialysis tomorrow if fluid removal tolerated. Opinion is that hospice will have to be considered without dialysis at some point in the not too distant future when it no longer appears to be contributing significantly to her quality of life for her remaining time. Medications should be adjusted for the patient's ESRD. Avoid gadolinium (2) Altered mental status (3) Urinary tract infection Plan: Abx deferred to primary (4) Failure to thrive in adult Plan: Ongoing these last several months. Even if the patient improves enough to be discharged [id number] and overall clinical condition will likely be very poor given severe debilitation, dementia, medical comorbidities and advanced age.. Patient has been requesting to come off the dialysis machine early as an outpatient during her treatment but still indicated recently that she wanted to continue dialysis. She was advised however by being noncompliant with her dialysis treatments her overall prognosis is significantly reduced. (5) Anemia of renal disease Plan: Continue Epogen and Venofer. Problem Qualifiers (1) Altered mental status: Qualified Code: R41.0 - Delirium (2) Urinary tract infection: Qualified Code: N30.00 - Acute cystitis without hematuria Pio Morton MD Dec 22, 2016 16:29
--- NOTE | 2016-12-22 17:31 | HHI.FPPN ---
Subjective Remarks Was not extubated overnight; bronchoscopy performed which showed mucus plug. Patient's respiratory status improved since removal of mucus plug. Now off sedation. SBT to be performed today. (Kade Tyler MD R1) Objective Vitals Vital Signs Date Time Temp Pulse Resp B/P Pulse Ox O2 Delivery O2 Flow Rate FiO2 12/22/16 16:00 101 12/22/16 16:00 97.7 107 16 106/53 99 12/22/16 14:00 107 12/22/16 13:07 98 Nasal Cannula 2.00 12/22/16 12:00 98.0 104 19 100/53 94 12/22/16 12:00 104 12/22/16 10:35 99 Nasal Cannula 4 12/22/16 10:00 120 12/22/16 08:35 100 40 12/22/16 08:00 40 12/22/16 08:00 108 12/22/16 08:00 98.7 108 23 110/59 97 12/22/16 07:45 40 12/22/16 07:39 100 40 12/22/16 06:00 105 12/22/16 04:00 98.9 106 18 99/73 94 12/22/16 04:00 40 12/22/16 04:00 106 12/22/16 03:20 100 40 12/22/16 02:00 108 12/22/16 00:10 95 40 12/22/16 00:00 99.1 105 18 139/89 92 12/22/16 00:00 105 12/22/16 00:00 40 12/21/16 22:00 105 12/21/16 20:00 98.3 104 18 124/86 97 12/21/16 20:00 40 12/21/16 20:00 104 12/21/16 19:45 94 40 12/21/16 18:00 101 I/O 12/21/16 12/21/16 12/21/16 12/22/16 12/22/16 12/22/16 07:00 15:00 23:00 07:00 15:00 23:00 Intake Total 125 ml 5 ml 196 ml 514 ml 259 ml Output Total 50 ml 50 ml 1000 ml 100 ml 150 ml Balance 75 ml -45 ml -804 ml 414 ml 109 ml IV Total 65 ml 5 ml 196 ml 214 ml 259 ml Tube Feeding 200 ml 0 ml Other 60 ml 100 ml Output Urine Total 0 ml 0 ml 0 ml Stool Total 50 ml 50 ml 100 ml 150 ml Hemodialysis 1000 ml (Kade Tyler MD R1) Result Diagram: 12/22/16 0542 12/22/16 0542 Objective Remarks GENERAL: Awake in bed, intubated. FIO2 40%. SKIN: Pallor. Stage 2-3 sacral decubitus ulcer (dressing changed 12/14, sees wound care), stage 2-3 pressure ulcer R posterior calf, healing. Skin abrasion over L anterior warren. Several bruises over shins and forearms in various stages of healing. CARDIOVASCULAR: Normal rate, irregularly irregular rhythm. Normal S1/S2. No MRG RESPIRATORY: Decreased breath sounds left lower lung field anteriorly. ET tube in place. On monitor patient making attempts to breath over ventilator assistance. ABDOMEN: Soft, non-distended, non-tender. MUSCULOSKELETAL: Extremities without clubbing, cyanosis, or edema. Wounds as documented above. NEURO: Awake, alert. Responds to yes/no questions. Cannot speak (intubated). Procedures Hemodialysis - Sun//Sat schedule Bianchi-endoscopy - 12/18/16 (Kade Tyler MD R1) A/P Assessment and Plan 89 yo female with PMH of CHF with last echo 2014 showing EF 35%, ESRD on dialysis TTS, CAD s/p stenting, sacral decubitus ulcers presenting after being found on the ground at longterm. Sent to the ED for evaluation and was admitted for altered mental status and urinary tract infection. Discharge Planning Unclear; pending stabilization of medical issues and discussion with palliative care team (Kade Tyler MD R1) Attending Attestation Patient seen, examined, and discussed with resident team. I agree with assessment and management as documented and discussed with me. Pt remains intubated but is tolerating CPAP trial this AM. Anticipate extubation today. Appreciate specialists. (Helen La MD) Problem List: (1) Acute upper GI bleed Status: Acute Plan: GIB noted by dropping H/H, large bloody BM on 12/18. EGD 12/18 showed bleeding peptic ulcers, now s/p cauterization. H/H up to stable around 11 over last 24 hours. - Manager Location consulted, appreciate recommendations - Attempting extubation later today if SBT okay - GI consulted, appreciate recommendations - S/p EGD with cautery of peptic ulcers; per GI 30-40% chance of re-bleeding - PPI = 40 mg Protonix IV BID - S/p 6 units PRBC, 2 units FFP - H/H stable - Scale back checks to daily; transfuse for Hgb < 7.0 or decrease of >= 2.0 between checks - Palliative care consulted, appreciate assistance - Alternative code status = re-intubation okay, no chest compressions or shock, ACLS drugs okay - Would qualify for hospice given advanced age and medical comorbidities, will be ongoing discussion with family - Nutrition consult for dietary recommendations, currently getting tube feedings (2) Leukocytosis Status: Acute Plan: Leukocytosis of 20.5 over last couple days with neutrophil predominance. S/p UTI treatment as below. Exam showing no focal findings. Could be early VAP or exaggerated stress response. WBC 25 today Repeat blood Cx NGTD - Stat blood culture for T >= 100.4, <= 96.5 - f/u repeat blood Cx - f/u Cx of bronchial washings - Antibiotic coverage with Zosyn 2.25 gm IV Q8H (3) Urinary tract infection Status: Resolved Plan: UA with leuk esterase and bacteria (catheterized sample). Leukocytosis but no fevers. UCx showing contaminant (50-100k mixed GPC). - s/p Levaquin dosed renally (500 mg Q48H), s/p coverage of 5 days with fluoroquinolone (cipro day 1, Levaquin x2 doses with each dose covering 48 hours ) (4) Altered mental status Status: Resolved Plan: In setting of elevated WBC and + bacteria and leuk esterase in catheterized urine sample, likely etiology is UTI. Pain from recent hip surgery could be component. EKG without tachycardia, ST-T wave changes; AFib with normal HR EEG showing no evidence of seizure disorder Troponins/EKG reassuring ECHO done, EF of 55 to 60%. Chest x-ray shows edema, no evidence of pneumonia UCx 50-100k CFU/mL mixed GPC - Has been getting Tylenol 1 g IV Q6H for pain, on discharge can consider scheduling 650 mg PO every 6-8 hours - Treating UTI (despite negative culture, patient improved with treatment) - Delirium prevention: sunlight, no sleeping during the day, hold sedating medications (5) CHF, chronic Status: Chronic Plan: EF 55-60%, no signs of pulmonary edema on exam - Continue home beta rock (6) ESRD (end stage renal disease) on dialysis Status: Chronic Plan: Initial creatine currently 2.63 which is about baseline, today is 2.97. Hemodialysis on a Sunday, , Sunday schedule. - Nephrology on board, appreciate recs - Continue phosphate binder, Ca, vitamin D - Continue outpatient dialysis - Renally dose medicines, avoid nephrotoxic agents (7) Anemia of renal disease Status: Chronic Plan: Patient's sudden drop in Hgb from ~8 to ~6 found to be due to acute GIB. Once stable baseline Hgb will still likely be slightly low due to renal disease. Serum iron 22 TIBC 150 % saturation ~15 - See above management for Acute Upper GIB. - Nephrology consulted, appreciate recs - Venofer as ordered by nephrology (daily) (8) Sacral decubitus ulcer Status: Chronic Plan: Stable from previous descriptions in outpatient setting, do not appear acutely infected on exam - Consult wound nurse, appreciate recs - Rotate patient every 2 hours - Santyl dressing changes daily on sacral ulcer, not on other ulcers - On discharge, continue treatment of wounds per patient's wound care physician (9) Essential hypertension Status: Chronic Plan: BP stable - Continue home Coreg, hold for BP < 90/50 (10) Coronary artery disease Status: Chronic Plan: S/p CABG - Continue home ASA, Plavix, Statin (11) History of right hip hemiarthroplasty Status: Chronic Plan: No abnormalities on X-ray - Pain as above (12) Paroxysmal atrial fibrillation Status: Chronic Plan: Had been on Coumadin previously, but due to recent bleed requiring hospital visit this was discontinued. - Continue rate control with beta rock - Holding ASA/Plavix (GIB) (13) Dementia Status: Chronic Plan: Dementia, at high risk for delirium - Continue home trazodone as needed for sleep - Delirium precautions (14) FEN/PPX Status: Acute Plan: Fluids: use with caution Elecs: Monitor and replete PRN Nutrition: Diet regular basic, Nepro supplementation (once extubated and cleared for oral intake) DVT: Held due to GIB sdw Dr. 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
--- NOTE | 2016-12-22 19:55 | HHI.HCPN ---
Reason for visit a. To assist with evaluation and management of symptoms including: dyspnea , encephalopathy, agitation b. To assist medical decision maker(s) with: better understanding of current medical conditions; weighing benefits/burdens of medical treatment options; making medical treatment decisions. . Subjective/Interval History Ms. Richey was extubated this AM and now appears comfortable on nasal cannula 02. She is able to smile. Daughter is at bedside. Patient's voice is inaudible. The patient has received two doses of 50 mcg fentanyl today for non- verbal signs of pain. Patient is unable to quantify/qualify pain. No active GI bleeding noted today, however Hg has dropped from 11.89 to 10.6. . Family/friend interactions Daughter at bedside. She is thrilled that her mother has been extubated. We talked, however, about how frail and deconditioned her mother is and that the chances of a major setback remain high. Daughter understand this. . Advance Directives Living Will: Never completed Health Care Surrogate: Never completed Durable Power of Jewel Grinder: Copy in medical record Advance Directive Specifics Date completed: Health care POA form completed 09/08/2015. . Health Care Surrogate(s): Health care POA form lists : Brandy Small (daughter) and Cristóbal Richey ( son) to serve together as health care surrogates. Documented care wishes: There is no written documentation of health care goals/preferences. . Objective Vital Signs Date Time Temp Pulse Resp B/P Pulse Ox O2 Delivery O2 Flow Rate FiO2 12/22/16 18:00 175 12/22/16 16:00 101 12/22/16 16:00 97.7 107 16 106/53 99 12/22/16 14:00 107 12/22/16 13:07 98 Nasal Cannula 2.00 12/22/16 12:00 98.0 104 19 100/53 94 12/22/16 12:00 104 12/22/16 10:35 99 Nasal Cannula 4 12/22/16 10:00 120 12/22/16 08:35 100 40 12/22/16 08:00 40 12/22/16 08:00 108 12/22/16 08:00 98.7 108 23 110/59 97 12/22/16 07:45 40 12/22/16 07:39 100 40 12/22/16 06:00 105 12/22/16 04:00 98.9 106 18 99/73 94 12/22/16 04:00 40 12/22/16 04:00 106 12/22/16 03:20 100 40 12/22/16 02:00 108 12/22/16 00:10 95 40 12/22/16 00:00 99.1 105 18 139/89 92 12/22/16 00:00 105 12/22/16 00:00 40 12/21/16 22:00 105 12/21/16 20:00 98.3 104 18 124/86 97 12/21/16 20:00 40 12/21/16 20:00 104 12/21/16 19:45 94 40 Intake & Output 12/22/16 12/22/16 07:00 19:00 Intake Total 710 ml 259 ml Output Total 100 ml 150 ml Balance 610 ml 109 ml IV Total 410 ml 259 ml Tube Feeding 200 ml 0 ml Other 100 ml Output Urine Total 0 ml Stool Total 100 ml 150 ml . Physical Exam CONSTITUTIONAL/GENERAL: This is a pale, frail appearing patient in an MICU bed. Awake, able to smile. Inaudible voice. TUBES/LINES/DRAINS: Ariza catheter; peripheral IVs; SKIN: No jaundice, rashes, or lesions. Ecchymoses on upper extremities. Multiple skin tears on lower extremities. Skin temperature appropriate. Not diaphoretic. EYES: Pupils equal and round. . Extraocular motions intact. No scleral icterus. No injection or drainage. Fundi not examined. ENT: Appears to hear me fine. Nose without bleeding or purulent drainage. Throat without visible erythema, exudates, masses, or lesions; dry mucous membranes. NECK: Trachea midline. Supple. CARDIOVASCULAR: Regular rate and rhythm without murmurs, gallops, or rubs. No JVD. RESPIRATORY/CHEST: Symmetric, unlabored respirations. Few faint ronchi. Breath sounds equal bilaterally. No wheezes. GASTROINTESTINAL: Abdomen soft, non-tender, nondistended. No hepato-splenomegaly , or palpable masses. No guarding. Bowel sounds present. GENITOURINARY: Without palpable bladder distension. Ariza catheter in place. MUSCULOSKELETAL: Extremities without clubbing, cyanosis. LYMPHATICS: Not examined. NEUROLOGICAL: Awake, alert, smiles, Follows commands. Moves all extremities. PSYCHIATRIC: No obvious depression/anxiety/hallucinations. . . Diagnostic Tests Laboratory Laboratory Tests Test 12/20/16 12/20/16 12/20/16 12/20/16 00:08 05:40 15:28 22:29 Hemoglobin 12.5 GM/DL 11.7 GM/DL 10.9 GM/DL 11.7 GM/DL (11.6-15.3) (11.6-15.3) (11.6-15.3) (11.6-15.3) Hematocrit 37.1 % 34.8 % 31.6 % 34.0 % (35.0-46.0) (35.0-46.0) (35.0-46.0) (35.0-46.0) White Blood Count 20.5 TH/MM3 (4.0-11.0) Red Blood Count 4.06 MIL/MM3 (4.00-5.30) Mean Corpuscular Volume 85.7 FL (80.0-100.0) Mean Corpuscular Hemoglobin 28.8 PG (27.0-34.0) Mean Corpuscular Hemoglobin 33.6 % Concent (32.0-36.0) Red Cell Distribution Width 16.6 % (11.6-17.2) Platelet Count 237 TH/MM3 (150-450) Mean Platelet Volume 6.6 FL (7.0-11.0) Neutrophils (%) (Auto) 84.2 % (16.0-70.0) Lymphocytes (%) (Auto) 8.7 % (9.0-44.0) Monocytes (%) (Auto) 6.0 % (0.0-8.0) Eosinophils (%) (Auto) 0.9 % (0.0-4.0) Basophils (%) (Auto) 0.2 % (0.0-2.0) Neutrophils # (Auto) 17.2 TH/MM3 (1.8-7.7) Lymphocytes # (Auto) 1.8 TH/MM3 (1.0-4.8) Monocytes # (Auto) 1.2 TH/MM3 (0-0.9) Eosinophils # (Auto) 0.2 TH/MM3 (0-0.4) Basophils # (Auto) 0.0 TH/MM3 (0-0.2) CBC Comment DIFF FINAL Differential Comment Sodium Level 136 MEQ/L (136-145) Potassium Level 3.4 MEQ/L (3.5-5.1) Chloride Level 98 MEQ/L (98-107) Carbon Dioxide Level 26.4 MEQ/L (21.0-32.0) Anion Gap 12 MEQ/L (5-15) Blood Urea Nitrogen 34 MG/DL (7-18) Creatinine 2.77 MG/DL (0.50-1.00) Estimat Glomerular Filtration 16 ML/MIN (>89) Rate Random Glucose 58 MG/DL (74-106) Calcium Level 7.9 MG/DL (8.5-10.1) Test 12/21/16 12/21/16 12/22/16 04:14 15:44 05:42 White Blood Count 20.5 TH/MM3 25.9 TH/MM3 (4.0-11.0) (4.0-11.0) Red Blood Count 3.78 MIL/MM3 3.57 MIL/MM3 (4.00-5.30) (4.00-5.30) Hemoglobin 11.1 GM/DL 11.8 GM/DL 10.6 GM/DL (11.6-15.3) (11.6-15.3) (11.6-15.3) Hematocrit 32.7 % 34.8 % 31.5 % (35.0-46.0) (35.0-46.0) (35.0-46.0) Mean Corpuscular Volume 86.6 FL 88.3 FL (80.0-100.0) (80.0-100.0) Mean Corpuscular Hemoglobin 29.5 PG 29.6 PG (27.0-34.0) (27.0-34.0) Mean Corpuscular Hemoglobin 34.0 % 33.5 % Concent (32.0-36.0) (32.0-36.0) Red Cell Distribution Width 16.2 % 16.4 % (11.6-17.2) (11.6-17.2) Platelet Count 262 TH/MM3 215 TH/MM3 (150-450) (150-450) Mean Platelet Volume 6.7 FL 7.1 FL (7.0-11.0) (7.0-11.0) Neutrophils (%) (Auto) 85.1 % 90.2 % (16.0-70.0) (16.0-70.0) Lymphocytes (%) (Auto) 7.7 % 4.4 % (9.0-44.0) (9.0-44.0) Monocytes (%) (Auto) 6.1 % (0.0-8.0) 5.0 % (0.0-8.0) Eosinophils (%) (Auto) 0.5 % (0.0-4.0) 0.2 % (0.0-4.0) Basophils (%) (Auto) 0.6 % (0.0-2.0) 0.2 % (0.0-2.0) Neutrophils # (Auto) 17.4 TH/MM3 23.3 TH/MM3 (1.8-7.7) (1.8-7.7) Lymphocytes # (Auto) 1.6 TH/MM3 1.1 TH/MM3 (1.0-4.8) (1.0-4.8) Monocytes # (Auto) 1.2 TH/MM3 1.3 TH/MM3 (0-0.9) (0-0.9) Eosinophils # (Auto) 0.1 TH/MM3 0.1 TH/MM3 (0-0.4) (0-0.4) Basophils # (Auto) 0.1 TH/MM3 0.1 TH/MM3 (0-0.2) (0-0.2) CBC Comment AUTO DIFF DIFF FINAL Differential Total Cells 100 Counted Neutrophils % (Manual) 81 % (16-70) Band Neutrophils % 2 % (0-6) Lymphocytes % 7 % (9-44) Monocytes % 8 % (0-8) Basophils % 2 % (0-2) Neutrophils # (Manual) 17.0 TH/MM3 (1.8-7.7) Differential Comment FINAL DIFF MANUAL Platelet Estimate NORMAL (NORMAL) Platelet Morphology Comment NORMAL (NORMAL) Sodium Level 132 MEQ/L 133 MEQ/L (136-145) (136-145) Potassium Level 3.7 MEQ/L 3.4 MEQ/L (3.5-5.1) (3.5-5.1) Chloride Level 93 MEQ/L 94 MEQ/L (98-107) (98-107) Carbon Dioxide Level 27.0 MEQ/L 25.5 MEQ/L (21.0-32.0) (21.0-32.0) Anion Gap 12 MEQ/L (5-15) 14 MEQ/L (5-15) Blood Urea Nitrogen 38 MG/DL (7-18) 26 MG/DL (7-18) Creatinine 3.28 MG/DL 3.00 MG/DL (0.50-1.00) (0.50-1.00) Estimat Glomerular Filtration 13 ML/MIN (>89) 15 ML/MIN (>89) Rate Random Glucose 50 MG/DL 179 MG/DL (74-106) (74-106) Calcium Level 7.8 MG/DL 7.9 MG/DL (8.5-10.1) (8.5-10.1) Magnesium Level 1.6 MG/DL (1.5-2.5) Total Bilirubin 0.7 MG/DL (0.2-1.0) Aspartate Amino Transf 15 U/L (15-37) (AST/SGOT) Alanine Aminotransferase 9 U/L (10-53) (ALT/SGPT) Alkaline Phosphatase 117 U/L (45-117) Total Protein 5.8 GM/DL (6.4-8.2) Albumin 2.3 GM/DL (3.4-5.0) . Result Diagram: 12/22/16 0542 12/22/16 0542 Microbiology Microbiology Date/Time Procedure Status Source Growth 12/21/16 13:47 Aerobic Blood Culture - Preliminary Resulted Blood Peripheral NO GROWTH IN 1 DAY 12/21/16 13:47 Anaerobic Blood Culture - Preliminary Resulted Blood Peripheral NO GROWTH IN 1 DAY 12/21/16 13:53 Aerobic Blood Culture - Preliminary Resulted Blood Peripheral NO GROWTH IN 1 DAY 12/21/16 13:53 Anaerobic Blood Culture - Preliminary Resulted Blood Peripheral NO GROWTH IN 1 DAY 12/21/16 23:00 Gram Stain - Final Resulted Bronchial Washings Bronchial 12/21/16 23:00 Bronchial Culture - Preliminary Resulted Bronchial Washings Bronchial NO GROWTH IN 24 HOURS. 12/21/16 23:00 Fungal Smear - Final Resulted Bronchial Washings Bronchial 12/21/16 23:00 Fungal Culture Resulted Bronchial Washings Bronchial Pending 12/21/16 23:00 Acid Fast Stain Received Bronchial Washings Bronchial Pending 12/21/16 23:00 Mycobacterial Culture Received Bronchial Washings Bronchial Pending 12/22/16 11:50 Respiratory Culture Received Oral Mouth Pending 12/22/16 11:50 Gram Stain Received Wound Other Pending 12/22/16 11:50 Wound Culture Received Wound Other Pending 12/22/16 11:50 Acid Fast Stain Received Wound Other Pending 12/22/16 11:50 Mycobacterial Culture Received Wound Other Pending . Imaging Last Impressions Chest X-Ray 12/22/16 0600 Signed Impressions: Service Date/Time: Thursday, December 22, 2016 04:02 - CONCLUSION: No significant interval change. Fortino Hernadez MD Hip and Pelvis X-Ray 12/15/16 0000 Signed Impressions: Service Date/Time: Thursday, December 15, 2016 05:00 - CONCLUSION: Intact total hip prosthesis for technique and extensive stool and osteopenia as above. Rigoberto Valencia MD Head CT 12/15/16 0000 Signed Impressions: Service Date/Time: Thursday, December 15, 2016 04:53 - CONCLUSION: Chronic and small vessel ischemic changes without any evidence for acute hemorrhage or mass effect. Rigoberto Valencia MD Cervical Spine CT 12/15/16 0000 Signed Impressions: Service Date/Time: Thursday, December 15, 2016 04:53 - CONCLUSION: Neural foramina compromise right C3-4, right C5-C6 and bilateral lateral recess compromise C5- 6. Rigoberto Valencia MD . Procedures * Intubation/mechanical ventilation * EGD with cauterization of gastric ulcer * Bronchoscopy 12/21/16 * Hemodialysis. . . Assessment and Plan Disease Oriented Problem List: (1) Acute upper GI bleed Comment: EGD of 12/18/16 revealed a gastric ulcer. Duodenitis without bleeding was also noted. . (2) Coronary artery disease Comment: Patient has had bypass surgery. (3) Essential hypertension (4) Paroxysmal atrial fibrillation (5) Hypothyroidism (acquired) (6) Sacral decubitus ulcer (7) ESRD (end stage renal disease) on dialysis Comment: Patient has been receiving hemodialysis for approximately 5 years (8) Altered mental status (9) Dementia Comment: Patient developed cognitive challenges following her second stroke. This seems to be more with reasoning and executive function than it is with short-term memory. . 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 First stroke --> good resolution. 2nd Stroke left her with problems with swallowing, speech, and executive function. . 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 . Symptom Scale: (1) Pain 0-10 Scale: Unable to quantify Comment: Patient with many years of lower extremity pain of uncertain etiology. A fentanyl drip has been available here. Now on prn fentanyl bolus. Appears adequate. . (2) Dyspnea 0-10 Scale: Unable to quantify Comment: Dyspnea currently controlled on nasal cannul . Had mucous plug cleared by bronchoscopy on 12/21/16 . . (3) Encephalopathy 0-10 Scale: Unable to quantify (patient has underlying cognitive challenges. These have been exacerbated by what is either a metabolic encephalopathy or a multifactorial delirium.) Comment: Now able to follow commands. Improving. Her baseline is unclear. Following her second stroke she had problems with executive function. . Pertinent Non-Medical Issues Psychosocial: Patient has a sonCristóbal-- who lives locally. Rashawn lives in [place]. Spiritual: Patient grew up in a fundamentalist tradition. Daughter reports she became bitter following the premature of her . Legal: No known living will. There is a completed health care power of corporate associate attorney document that gives: Health care surrogate designation to both of her children. Ethical issues impacting care: Patient is incapacitated to make her own medical decisions. It is not clear if she will regain capacity to do so. . Important Contacts * Cristóbal Richey (son and health co-health care POA) [phone] * Brandy Alan (daughter and co-health care surrogate) . Prognosis Ms. Richey has not done well since her heart surgery -- CABG and tricuspid valve replacement-- several years ago. She has since suffered 2 strokes. Though she had some improvement after the first stroke. The second stroke left her with some swallowing issues, speech issues and some cognitive deficits. She has been frustrated with these deficits and has withdrawn socially. She is primarily wheelchair and bedbound. Daughter reports that her weight has fallen from a normal weight of approximately 160 pounds down to approximately 115 pounds. She has been receiving hemodialysis for approximately 5 years -- hemodialysis began shortly after her surgery which apparently also caused renal insufficiency. She suffered a hip fracture requiring repair about a month ago, and is now back in the hospital with respiratory failure, urinary tract infection, and a large gastrointestinal hemorrhage. Given the above, and her advanced age her prognosis is not great. It now appears that the patient will survive the intensive care unit, and live to hospital discharge. However, given her trajectory leading up to this hospitalization and given her advanced age, significant relapse is likely. Life expectancy is probably well under a year. Whenever the patient or her family feel they want to "transition to comfort measures, she would be eligible for hospice services. . Code Status: Alternative Code (No chest compressions or shock; Yes intubate and ACLS drugs) Plan == Code Status: ALTERNATE CODE Spoke to son and daughter together. They want patient re-intubated if she is extubated and develops respiratory decompensation. Therefore , code status is ALTERNATE CODE. No shock / No chest compressions but Yes intubation / Yes ACLS drugs. == Decision making: Son and daughter are joint health care surrogates. == Goals: Son and daughter continue to want aggressive care short of the resuscitation limits noted above. They will re-evaluate as the clinical course evolves. They know the patient would not want to be dependent on a ventilator for the rest of her life and would not want to be sustained in a permanent vegetative state. == Pain: Patient has long-standing lower extremity pain of uncertain etiology. She also may be uncomfortable from her prolonged bedbound status; Ariza catheter; and vascular access lines. Pain orders just changed from fentanyl drip to prn bolus fentanyl which appears to be adequate. No further recommendations at this time. == Dyspnea: Patient's dyspnea is currently being controlled with 02 via nasal cannula. Extubated 12/22/16. . No further recommendations at this time. == Encephalopathy: Patient has some baseline cognitive deficits, particularly with executive function since her second stroke. She is now following commands. == Agitation: Appears to be resolved since extubation. == Palliative care will continue to follow to assist with symptom management and to further clarify goals of medical treatment as the clinical course evolves. . Attestation To help prompt me to consider important information that might be impacting today's encounter and assessment, information from prior notes written by myself or my colleagues may have been "brought forward" into today's note. My signature on this note, however, is an attestation that I personally performed the exam, history, and/or decision-making noted today, and, unless otherwise indicated, the interactions with patient, family, and staff as well as the review of records all occurred today. I also attest that the listed assessment and stated plan reflect my best clinical judgment today based on the combination of historical information, prior notes, and today's exam/ interactions. When time spent is documented, it refers only to time spent today by the signer, or if indicated, combined time spent today by collaborating physician/nurse practitioner. . Alexander Martinez MD Dec 22, 2016 19:55
[2016-12-22] MEDS: LATANOPROST 0.005% OPHT SOLN 2.5 ML BTL EACH EYE SCH (20:36)
[2016-12-23] VITALS (14 sets, daily range): BP systolic 110–127; BP diastolic 57–67; PULSE 100–116; RESP 13–29; TEMP 97.5–98.8; O2SAT 92–100
[2016-12-23] MEDS: CHLORHEXIDINE GLUCONATE 2 % 1 PACK (2 CLOTHS)(taper/protocol) TOPICAL SCH (00:06)
[2016-12-23] MEDS: RESP: ALBUTEROL 2.5 MG/IPRATROPIUM 0.5 MG NEB (SCH) NEB ×7 (00:45→23:25)
[2016-12-23] MEDS: LEVOTHYROXINE SODIUM 112 MCG TAB PO SCH (05:29)
[2016-12-23] MEDS: PIPERACIL-TAZO 2.25 GM PREMIX 50 ML IV SCH ×3 (05:30→20:09)
--- NOTE | 2016-12-23 06:18 | RADRPT ---
EXAM DATE/TIME: 12/23/2016 03:32 [facility] COMPARISON: CHEST SINGLE AP, December 22, 2016, 4:02. INDICATIONS : Shortness of breath, possible pulmonary disease. MEDICAL HISTORY : Hypertension. Chronic obstructive pulmonary disease. Congestive heart failure. SURGICAL HISTORY : Lumpectomy Valve replacement ENCOUNTER: Subsequent ACUITY: 1 week PAIN SCORE: Non-responsive. LOCATION: Bilateral chest FINDINGS: The cardiac silhouette is normal in transverse diameter. There is worsening left lower lobe atelectas is involving loss. The right lung is free of acute parenchymal opacity. Small left effusion is presen t. CONCLUSION: 1. Worsening left lower lobe atelectasis and volume loss. Amol Cleaning MD on December 23, 2016 at 6:15 Board Certified Radiologist. This report was verified electronically.
[2016-12-23] MEDS: CHLORHEXIDINE 0.12% (ORAL KIT) 15 ML CUP MT SCH ×2 (07:51→20:00)
[2016-12-23] MEDS: CALCIUM ACETATE 667 MG CAP PO SCH ×3 (09:00→17:06)
[2016-12-23] MEDS: VITAMIN B CMPLX/VITC/FOLIC AC CAP PO SCH (09:00)
[2016-12-23] MEDS: NUTRITIONAL SUPPLEMENTS PO SCH (09:00)
[2016-12-23] MEDS: POLYETHYLENE GLYCOL 17 GM PKG PO SCH (09:00)
--- NOTE | 2016-12-23 09:39 | HHI.FPPN ---
Subjective Remarks Extubated yesterday evening. This morning vocalizing but not oriented or able to articulate wants/needs well. Nods when asked about pain but unable to localize. She is due for dialysis today. (Kade Tyler MD R1) Objective Vitals Vital Signs Date Time Temp Pulse Resp B/P Pulse Ox O2 Delivery O2 Flow Rate FiO2 12/23/16 08:09 92 Nasal Cannula 3.00 12/23/16 08:00 104 12/23/16 08:00 97.5 116 29 127/65 93 12/23/16 06:00 104 12/23/16 04:00 102 12/23/16 04:00 97.9 102 13 113/63 100 12/23/16 02:00 102 12/23/16 00:00 98.0 103 20 125/58 92 12/23/16 00:00 103 12/22/16 22:00 102 12/22/16 21:03 98 Nasal Cannula 3.00 12/22/16 20:00 107 12/22/16 20:00 98.3 107 16 106/65 96 12/22/16 18:00 175 12/22/16 16:00 101 12/22/16 16:00 97.7 107 16 106/53 99 12/22/16 14:00 107 12/22/16 13:07 98 Nasal Cannula 2.00 12/22/16 12:00 98.0 104 19 100/53 94 12/22/16 12:00 104 12/22/16 10:35 99 Nasal Cannula 4 12/22/16 10:00 120 I/O 12/22/16 12/22/16 12/22/16 12/23/16 12/23/16 12/23/16 07:00 15:00 23:00 07:00 15:00 23:00 Intake Total 514 ml 259 ml 280 ml 340 ml Output Total 100 ml 150 ml 0 ml 0 ml Balance 414 ml 109 ml 280 ml 340 ml IV Total 214 ml 259 ml 280 ml 280 ml Tube Feeding 200 ml 0 ml Other 100 ml 60 ml Output Urine Total 0 ml 0 ml 0 ml Stool Total 100 ml 150 ml # Bowel Movements 0 1 (Kade Tyler MD R1) Result Diagram: 12/22/16 0542 12/22/16 0542 Objective Remarks GENERAL: Awake in bed, NC 3 L/min, NG tube in place for feedings. SKIN: Pallor. Stage 2-3 sacral decubitus ulcer (dressing changed 12/14, sees wound care), stage 2-3 pressure ulcer R posterior calf, healing. Skin abrasion over L anterior warren. Several bruises over shins and forearms in various stages of healing. CARDIOVASCULAR: Normal rate, irregularly irregular rhythm. Normal S1/S2. No MRG RESPIRATORY: Decreased breath sounds left lower lung field anteriorly. Crackles bilateral bases. ABDOMEN: Soft, non-distended, non-tender. MUSCULOSKELETAL: Extremities without clubbing, cyanosis, or edema. Wounds as documented above. NEURO: Awake, alert. Responds to yes/no questions. Vocalizing but not articulating well at present. Procedures Hemodialysis - Sun//Sun schedule Bianchi-endoscopy - 12/18/16 (Kade Tyler MD R1) A/P Assessment and Plan 89 yo female with PMH of CHF with last echo 2014 showing EF 35%, ESRD on dialysis TTS, CAD s/p stenting, sacral decubitus ulcers presenting [facility] Sent to the ED for evaluation and was admitted for altered mental status and urinary tract infection. Discharge Planning Unclear; pending stabilization of medical issues and discussion with palliative care team (Kade Tyler MD R1) Attending Attestation Patient seen and examined, discussed with resident team. I agree with assessment and management as documented and discussed with me. Pt extubated yesterday. On nasal cannula. Requiring fentanyl for pain in her legs at times. Hemoglobin stable. CXR with atelectasis - EZ pap started (Helen La MD) Problem List: (1) Acute upper GI bleed Status: Resolved Plan: GIB noted by dropping H/H, large bloody BM on 12/18. EGD 12/18 showed bleeding peptic ulcers, now s/p cauterization. H/H stable around 11 over last 24 hours. 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, appreciate recommendations - Extubated 12/24 - CXR today AM showing probable worsened atelectasis on left side - EZPAP ordered, will monitor clinically - GI consulted, appreciate recommendations - S/p EGD with cautery of peptic ulcers; per GI 30-40% chance of re-bleeding - PPI = 40 mg Protonix IV BID - S/p 6 units PRBC, 2 units FFP - H/H stable - Scale back checks to daily; transfuse for Hgb < 7.0 or decrease of >= 2.0 between checks - Palliative care consulted, appreciate assistance - Alternative code status = re-intubation okay, no chest compressions or shock, ACLS drugs okay - Would qualify for hospice given advanced age and medical comorbidities, will be ongoing discussion with family - Nutrition consult for dietary recommendations, currently getting tube feedings - Speech therapy to evaluate swallow function for possible progression of diet once more stable (2) Leukocytosis Status: Acute Plan: Leukocytosis of 20.5 over last couple days with neutrophil predominance. S/p UTI treatment as below. Exam showing no focal findings. Could be early VAP or exaggerated stress response. WBC 25 on 12/22, pending today Repeat blood Cx NGTD - Stat blood culture for T >= 100.4, <= 96.5 - f/u repeat blood Cx - f/u Cx of bronchial washings - Antibiotic coverage with Zosyn 2.25 gm IV Q8H (3) Urinary tract infection Status: Resolved Plan: UA with leuk esterase and bacteria (catheterized sample). Leukocytosis but no fevers. UCx showing contaminant (50-100k mixed GPC). - s/p Levaquin dosed renally (500 mg Q48H), s/p coverage of 5 days with fluoroquinolone (cipro day 1, Levaquin x2 doses with each dose covering 48 hours ) (4) Altered mental status Status: Resolved Plan: Presented with altered mental status due to UTI prior to development of GIB. S/p treatment with Levaquin. Currently on Zosyn as above for leukocytosis with unclear etiology. Mental status improving post-extubation. EKG without tachycardia, ST-T wave changes; AFib with normal HR EEG showing no evidence of seizure disorder Troponins/EKG reassuring ECHO done, EF of 55 to 60% UCx 50-100k CFU/mL mixed GPC - Has been getting Tylenol 1 g IV Q6H for pain, on discharge can consider scheduling 650 mg PO every 6-8 hours - Antibiotics as above for leukocytosis, source likely pulmonary if any - Delirium prevention: sunlight, no sleeping during the day, hold sedating medications (5) CHF, chronic Status: Chronic Plan: EF 55-60%, no signs of pulmonary edema on exam - Continue home beta rock (6) ESRD (end stage renal disease) on dialysis Status: Chronic Plan: Initial creatine currently 2.63 which is about baseline, today Cr pending. Hemodialysis on a Sunday, , Sunday schedule. - Nephrology on board, appreciate recs - Continue phosphate binder, Ca, vitamin D - Continue outpatient dialysis - Renally dose medicines, avoid nephrotoxic agents (7) Anemia of renal disease Status: Chronic Plan: Patient's sudden drop in Hgb from ~8 to ~6 found to be due to acute GIB. Once stable baseline Hgb will still likely be slightly low due to renal disease. Serum iron 22 TIBC 150 % saturation ~15 - See above management for Acute Upper GIB. - Nephrology consulted, appreciate recs - Venofer as ordered by nephrology (daily) (8) Sacral decubitus ulcer Status: Chronic Plan: Stable from previous descriptions in outpatient setting Wound culture obtained by [facility] due to leukocytosis - F/u wound culture - Consult wound nurse, appreciate recs - Rotate patient every 2 hours - Santyl dressing changes daily on sacral ulcer, not on other ulcers - On discharge, continue treatment of wounds per patient's wound care physician (9) Essential hypertension Status: Chronic Plan: BP stable - Continue home Coreg, hold for BP < 90/50 (10) Coronary artery disease Status: Chronic Plan: S/p CABG - Continue home ASA, Plavix, Statin (11) History of right hip hemiarthroplasty Status: Chronic Plan: No abnormalities on X-ray - Pain as above (12) Paroxysmal atrial fibrillation Status: Chronic Plan: Had been on Coumadin previously, but due to recent bleed requiring hospital visit this was discontinued. - Continue rate control with beta rock - Holding ASA/Plavix (GIB) (13) Dementia Status: Chronic Plan: Dementia, at high risk for delirium - Continue home trazodone as needed for sleep - Delirium precautions (14) FEN/PPX Status: Acute Plan: Fluids: use with caution Elecs: Monitor and replete PRN Nutrition: Diet regular basic, Nepro supplementation (once extubated and cleared for oral intake) DVT: Held due to GIB sdw Dr. 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
[2016-12-23] MEDS: EPOETIN ALFA 10,000 UNITS/ML VIAL IV SCH (12:30)
[2016-12-23] MEDS: GELATIN 12 MM/7 MM FOAM TOP PRN (12:30)
[2016-12-23] MEDS: ALBUMIN HUMAN 25% 25 GM/100 ML BAGP IV PRN (12:31)
[2016-12-23 14:07] LABS: AUTOMATED NEUTROPHIL # 18.2 TH/MM3 (1.8-7.7); BASOPHIL % 0.1 % (0.0-2.0); EOSINOPHIL # 0.1 TH/MM3 (0-0.4); EOSINOPHIL % 0.3 % (0.0-4.0); HEMATOCRIT 32.6 % (35.0-46.0); LYMPH % 2.9 % (9.0-44.0); LYMPHOCYTE # 0.6 TH/MM3 (1.0-4.8); MEAN CELL VOLUME 93.8 FL (80.0-100.0); MEAN CORPUSCULAR HEMOGLOBIN 30.1 PG (27.0-34.0); MEAN CORPUSCULAR HGB CONC 32.1 % (32.0-36.0); NEUT % 91.7 % (16.0-70.0); PLATELET COUNT 201 TH/MM3 (150-450); RED BLOOD COUNT 3.48 MIL/MM3 (4.00-5.30); WHITE BLOOD COUNT 19.8 TH/MM3 (4.0-11.0)
[2016-12-23 14:14] LABS: HEMO FLAGS AUTO DIFF
[2016-12-23 14:36] LABS: ALKALINE PHOSPHATASE 122 U/L (45-117); ALT (GPT) 10 U/L (10-53); ANION GAP 9 MEQ/L (5-15); AST (GOT) 19 U/L (15-37); BICARBONATE 29.4 MEQ/L (21.0-32.0); BLOOD UREA NITROGEN 15 MG/DL (7-18); CHLORIDE 96 MEQ/L (98-107); GLOMERULAR FILTRATION RATE 20 ML/MIN (>89); POTASSIUM 4.2 MEQ/L (3.5-5.1); SODIUM (NA) 134 MEQ/L (136-145)
[2016-12-23 14:39] LABS: SCAN/DIFF AUTO DIFF CONFIRMED
[2016-12-23] MEDS: CHOLECALCIFEROL (VIT D3) 1000 UNIT TAB PO SCH (14:44)
[2016-12-23] MEDS: DOCUSATE SODIUM 50 MG/SENNA 8.6 MG TAB PO PRN (14:44)
[2016-12-23] MEDS: SODIUM CHLORIDE 0.9% FLUSH 10 ML FLUSH IV FLUSH SCH ×2 (14:44→20:08)
[2016-12-23] MEDS: ASPIRIN EC 81 MG TABEC PO SCH (14:44)
[2016-12-23] MEDS: PANTOPRAZOLE SODIUM 40 MG VIAL IV PUSH SCH ×2 (14:44→20:08)
[2016-12-23] MEDS: PRAVASTATIN SOD 40 MG TAB PO SCH (14:44)
[2016-12-23] MEDS: COLLAGENASE OINT 30 GM TUBE TOPICAL SCH (14:45)
--- NOTE | 2016-12-23 15:20 | HHI.CCPN ---
Subjective Remarks/Hospital Course Hospital Course: This is an 89yF with history of congestive heart failure with a prior EF of 35% , end-stage renal disease on HD who initially presented to the hospital with urinary tract infection. She was actually scheduled to be discharged today when she had a significant hemoglobin drop from 7.7 --> 6.3, rechecked and was down to 5. At that time, she did not have any overt signs of bleeding. However , this afternoon she had a large melanotic bowel movement and became hemodynamically unstable with SBP in the 80s, and felt very fatigued. A rapid response was called. I immediately evaluated the patient. She was diaphoretic and hypotensive. very pale appearing. We immediately ordered 2 units uncrossmatched emergency release blood from the blood bank, and we transferred her emergently to the ICU. At this point, she also had no iv access. Vascular access team was at bedside and placed an 18g piv for us. I additionally placed a second 18g piv so we could maintain 2 large bore piv access at all times. Unfortunately, due to the hemodynamically unstable nature of the patient, additional information is unobtainable from the patient. The family medicine team did talk with her son and medical decision maker, and he stated that he wanted to keep the DNR status in place. He did say that transient intubation for a GI procedure would be acceptable for her as long as long-term ventilation was not considered. We will proceed with medically aggressive care with DNR in place and intubation only for procedures. 12/19: GI secured multiple gastric ulcers with cauterization and epinephrine. intubated for airway protection and left intubated to watch clinical course. this morning received 2 units prbc with appropriate response. IHD today. I had a long talk with her daughter, where I reiterated that the decision by the family to intubate the patient for this one procedure is a reasonable one, but if she did not extubate on pathway, or if she extubated and failed from a pulmonary standpoint, the entire family agrees that the patient was strict in her wishes to remain DNR/DNI, and a re-intubation for pulmonary reasons was likely against her wishes. 12/20: Patient remains intubated, sedated with propofol. Wakes up follows commands. WBC improving 23.9 to 20, Hb stable. Chest x-ray pending 12/21: Patient is lethargic and week but wakes up and follows commands. Hypoglycemic with blood sugar in 50s, receiving orange juice through OG tube 12/22: s/p Bronchoscopy yesterday with thick yellow mucus plug removed L main bronchus with re expansion of lung. Tolerating CPAP. Plan is to extubate today. Subjective: 12/23: Currently on 3 L nasal cannula. Advanced to a pured diet with thickened liquids. Afebrile. Positive BM. On D10 secondary hyperglycemia Objective Vital Signs Date Time Temp Pulse Resp B/P Pulse Ox O2 Delivery O2 Flow Rate FiO2 12/23/16 12:00 97.5 109 24 122/57 94 12/23/16 08:09 Nasal Cannula 3.00 12/22/16 08:35 40 Intake and Output 12/22/16 12/22/16 12/23/16 08:00 16:00 00:00 Intake Total 514 ml 259 ml 280 ml Output Total 100 ml 150 ml 0 ml Balance 414 ml 109 ml 280 ml Result Diagram: 12/23/16 1332 12/23/16 1332 Other Results Microbiology Date/Time Procedure Status Source Growth 12/22/16 11:50 Respiratory Culture - Preliminary Resulted Oral Mouth 12/22/16 11:50 Gram Stain - Final Resulted Wound Other 12/22/16 11:50 Wound Culture - Preliminary Resulted Group D Enterococcus 12/22/16 11:50 Acid Fast Stain Worksheet Wound Other Pending 12/22/16 11:50 Mycobacterial Culture Worksheet Wound Other Pending 12/21/16 23:00 Fungal Smear - Final Resulted Bronchial Washings Bronchial 12/21/16 23:00 Fungal Culture Resulted Bronchial Washings Bronchial Pending 12/21/16 13:53 Aerobic Blood Culture - Preliminary Resulted Blood Peripheral NO GROWTH IN 2 DAYS 12/21/16 13:53 Anaerobic Blood Culture - Preliminary Resulted Blood Peripheral NO GROWTH IN 2 DAYS Imaging Last Impressions Chest X-Ray 12/23/16 0600 Signed Impressions: Service Date/Time: Friday, December 23, 2016 03:32 - CONCLUSION: 1. Worsening left lower lobe atelectasis and volume loss. Amol Cleaning MD Hip and Pelvis X-Ray 12/15/16 0000 Signed Impressions: Service Date/Time: Thursday, December 15, 2016 05:00 - CONCLUSION: Intact total hip prosthesis for technique and extensive stool and osteopenia as above. Rigoberto Valencia MD Head CT 12/15/16 0000 Signed Impressions: Service Date/Time: Thursday, December 15, 2016 04:53 - CONCLUSION: Chronic and small vessel ischemic changes without any evidence for acute hemorrhage or mass effect. Rigoberto Valencia MD Cervical Spine CT 12/15/16 0000 Signed Impressions: Service Date/Time: Thursday, December 15, 2016 04:53 - CONCLUSION: Neural foramina compromise right C3-4, right C5-C6 and bilateral lateral recess compromise C5- 6. Rigoberto Valencia MD Objective Remarks GENERAL: 89-year-old female, critically ill currently resting in bed on nasal cannula SKIN: Warm and dry. No rash HEAD: Atraumatic. Normocephalic. EYES: Pupils equal and round about 2 mm bilaterally and reactive. No scleral icterus. No injection or drainage. ENT: No nasal bleeding or discharge. Mucous membranes pink and moist. NECK: Trachea midline. No JVD. CARDIOVASCULAR: Tachycardia, normal rhythm. S1, S2. No S4. Without murmur RESPIRATORY: Diminished breath sounds throughout left lungs. Positive end expiratory wheeze. GASTROINTESTINAL: Abdomen soft, non-tender, nondistended. Active bowel sounds. MUSCULOSKELETAL: Extremities with trace lower extremity edema. No obvious deformities. NEUROLOGICAL: Awake and alert. No obvious cranial nerve deficits. Motor grossly within normal limits. Five out of 5 muscle strength in the arms and legs. Normal speech. Urinary Catheter: Yes Assessment to: Continue Ariza insert reason: Prolonged Immobilization Vascular Central Line Catheter: No Assessment to: Continue A/P Assessment and Plan Neuro/Psych: Macular degeneration History of CVA Dementia Acetaminophen for fever/pain Holding Desyrel 50 at night for depression. Continue latanoprost 0.005% 1 drop each eye at night for macular degeneration CV: Chronic systolic ejection failure ejection fraction 35% History of hypertension Dyslipidemia History of paroxysmal atrial fibrillation Peripheral vascular disease Disease with stent placement question elisa Holding Coreg 25 twice a day, Norvasc 5 mg daily for hypertension. Holding Plavix any 5 mg by mouth daily in light of gastric ulcer Okayed resume aspirin 81 mg daily for A. fib Continue Pravachol 40 mg by mouth daily for dyslipidemia Resp: Recent history of left mucous plugging Respiratory insufficiency Nasal cannula to maintain saturations greater than equal to 92% A cappella/PEP/EZ PAP every 4 hours with DuoNeb therapies Follow-up chest x-ray in a.m. Add 3% hypertonic saline every 4 hours with breathing treatments GI: Upper GI bleed secondary to peptic ulcer Gastroesophageal reflux disease S/P EGD with cauterization (12/18/16) ----> bleeding ulcer antrum controlled with injection epinephrine and ablation. Currently Protonix 40 mEq IV twice a day MiraLAX daily for bowel regimen On a pured diet with thickened liquids : Ariza not indicated/anuric Endo: Hypothyroidism Hypoglycemia Continue Synthroid at 112 mcg by mouth daily Currently on D10 peripherally at 30 cc an hour. Currently on diet. We'll discontinue D10 start D5 normal saline at 40 cc an hour 1 bag. Renal: End-stage renal disease on hemodialysis Sunday//Sunday Status post hemodialysis today -3 L Continue PhosLo 667 3 times a day for secondary hyperparathyroidism Heme: Leukocytosis Normocytic anemia Monitor CBC daily. Follow trends. Status post trans fusion 6 PRBCs, 2 FFP this admission Leukemoid versus infectious for elevated WBC ID: Group D enterococcus from back sacral decubitus ulcer wound Continue Levaquin/Zosyn Pertinent cultures 12/15: Blood cultures 2 - no growth 12/15 - urine - negative 12/21 - blood cultures 2 - no growth 12/21 - bronchoscopy - no growth/negative AFB/fungal 12/22 - mouth - no growth 12/22 - wound - group D enterococcus MSK: Osteoporosis/osteoarthritis PT/OT evaluate and treat Continue vitamin D3 2000 units daily FEN: Hyponatremia Repeat BMP in a.m. Follow trends Access - Utilize peripheral IV. Central line if indicated Prophylaxis - GI - Protonix twice a day - DVT - SCD/chemical prophylaxis currently on hold with recent gastric ulcer bleeding Critical Care: The total critical care time was 35 minutes. Time to perform other separately billable procedures was not included in the critical care time. Aram Strickland MD Dec 23, 2016 15:20
[2016-12-23] MEDS: RESP: SODIUM CHLORIDE 3% 4 ML NEB NEB SCH ×3 (16:00→23:25)
[2016-12-23] MEDS ORDERED: DEXT 5%-NACL 0.9% 1000 ML INJ 1,000 ML IV SCH (16:15)
--- NOTE | 2016-12-23 16:25 | HHI.NPPN ---
Subjective History of Present Illness The patient is am 89 yo [place] female who is known to our services for ESRD on HD. She was brought to this facility as she was found on the floor of her NH. She is altered at the present, so no other information can be gathered. She has multiple abrasions on her LEs and her mouth is covered in blood. Uncertain if she bit her tongue. Imaging and labs reviewed. Appears she may have a UTI. Last HD yesterday---on TTS schedule. Interval History Patient somewhat agitated and confused. Daughter by bedside. Review of Systems General General Remarks Not obtainable today Objective Data Data 12/22/16 12/23/16 19:00 07:00 Intake Total 259 ml 620 ml Output Total 150 ml 0 ml Balance 109 ml 620 ml IV Total 259 ml 560 ml Tube Feeding 0 ml Other 60 ml Output Urine Total 0 ml 0 ml Stool Total 150 ml # Bowel Movements 1 Vital Signs Date Time Temp Pulse Resp B/P Pulse Ox O2 Delivery O2 Flow Rate FiO2 12/23/16 16:00 110 12/23/16 14:00 110 12/23/16 12:00 97.5 109 24 122/57 94 12/23/16 12:00 109 12/23/16 10:00 100 12/23/16 08:09 92 Nasal Cannula 3.00 12/23/16 08:00 104 12/23/16 08:00 97.5 116 29 127/65 93 12/23/16 06:00 104 12/23/16 04:00 102 12/23/16 04:00 97.9 102 13 113/63 100 12/23/16 02:00 102 12/23/16 00:00 98.0 103 20 125/58 92 12/23/16 00:00 103 12/22/16 22:00 102 12/22/16 21:03 98 Nasal Cannula 3.00 12/22/16 20:00 107 12/22/16 20:00 98.3 107 16 106/65 96 12/22/16 18:00 175 -: 12/23/16 1332 12/23/16 1332 Physical Exam General Appearance: Malnourished Appearance Remarks Very frail in appearance. Wasting of musculature of all limbs. Eyes Eye Exam: Sclera White Neck Neck Exam: Trachea Midline Pulmonary Resp Exam: Clear Bilaterally, Breath Sounds Equal, No Distress Cardiology CV Exam: Regular Gastrointestinal/Abdomen GI Exam: Soft, Non-Tender Integumentary Skin Exam: Clear, Warm Extremeties Extremities Exam: Moderate Edema (all extremities.) Neurologic Neuro Exam: Moving All Extremities, Sedated Assessment/Plan Problem List: (1) ESRD (end stage renal disease) on dialysis Plan: 3 L removed with dialysis today. We'll plan for repeat dialysis Sunday for additional fluid removal. Continue dialysis as long as family desires. My opinion is that hospice will have to be considered without dialysis at some point in the not too distant future when it no longer appears to be contributing significantly to her quality of life for her remaining time as discussed with the family previously prior to this admission.. Medications should be adjusted for the patient's ESRD. Avoid gadolinium (2) Altered mental status (3) Urinary tract infection Plan: Abx deferred to primary (4) Failure to thrive in adult Plan: Ongoing these last several months. Even if the patient improves enough to be discharged [id number] and overall clinical condition will likely be very poor given severe debilitation, dementia, medical comorbidities and advanced age.. Patient has been requesting to come off the dialysis machine early as an outpatient during her treatment but still indicated recently that she wanted to continue dialysis. She was advised however by being noncompliant with her dialysis treatments her overall prognosis is significantly reduced. (5) Anemia of renal disease Plan: Continue Epogen. Problem Qualifiers (1) Altered mental status: Qualified Code: R41.0 - Delirium (2) Urinary tract infection: Qualified Code: N30.00 - Acute cystitis without hematuria Pio Morton MD Dec 23, 2016 16:25
[2016-12-23] MEDS: guaiFENesin SOLUTION 200 MG/10 ML CUP PO SCH ×2 (17:14→23:04)
[2016-12-23] MEDS: LATANOPROST 0.005% OPHT SOLN 2.5 ML BTL EACH EYE SCH (20:08)
[2016-12-24] VITALS (17 sets, daily range): BP systolic 96–120; BP diastolic 52–62; PULSE 101–115; RESP 14–18; TEMP 97.8–98.5; O2SAT 95–100
[2016-12-24] MEDS: RESP: ALBUTEROL 2.5 MG/IPRATROPIUM 0.5 MG NEB (SCH) NEB ×6 (03:26→23:38)
[2016-12-24] MEDS: RESP: SODIUM CHLORIDE 3% 4 ML NEB NEB SCH ×6 (03:27→23:38)
[2016-12-24] MEDS: guaiFENesin SOLUTION 200 MG/10 ML CUP PO SCH ×3 (04:41→22:00)
[2016-12-24] MEDS: LEVOTHYROXINE SODIUM 112 MCG TAB PO SCH (04:41)
[2016-12-24] MEDS: PIPERACIL-TAZO 2.25 GM PREMIX 50 ML IV SCH ×2 (04:41→11:51)
--- NOTE | 2016-12-24 06:31 | RADRPT ---
EXAM DATE/TIME: 12/24/2016 03:54 [facility] COMPARISON: CHEST SINGLE AP, December 23, 2016, 3:32. INDICATIONS : Shortness of breath, possible pulmonary disease. MEDICAL HISTORY : Hypertension. Chronic obstructive pulmonary disease. Congestive heart failure. SURGICAL HISTORY : Lumpectomy Valve replacement ENCOUNTER: Subsequent ACUITY: 1 week PAIN SCORE: Non-responsive. LOCATION: Bilateral chest FINDINGS: The cardiac silhouette is normal in transverse diameter. There is increasing atelectasis and volume l oss in the left lung. The right lung is free of acute parenchymal opacity. CONCLUSION: 1. Worsening left-sided atelectasis and volume loss. Amol Cleaning MD on December 24, 2016 at 6:29 Board Certified Radiologist. This report was verified electronically.
[2016-12-24] MEDS: POLYETHYLENE GLYCOL 17 GM PKG PO SCH (09:00)
[2016-12-24] MEDS: NUTRITIONAL SUPPLEMENTS PO SCH (09:00)
[2016-12-24] MEDS: SODIUM CHLORIDE 0.9% FLUSH 10 ML FLUSH IV FLUSH SCH (09:00)
[2016-12-24] MEDS: ASPIRIN EC 81 MG TABEC PO SCH (09:55)
[2016-12-24] MEDS: PRAVASTATIN SOD 40 MG TAB PO SCH (09:55)
[2016-12-24] MEDS: CHOLECALCIFEROL (VIT D3) 1000 UNIT TAB PO SCH (09:55)
[2016-12-24] MEDS: CALCIUM ACETATE 667 MG CAP PO SCH ×3 (09:55→17:34)
[2016-12-24] MEDS: VITAMIN B CMPLX/VITC/FOLIC AC CAP PO SCH (09:55)
[2016-12-24] MEDS: PANTOPRAZOLE SODIUM 40 MG VIAL IV PUSH SCH (09:55)
[2016-12-24] MEDS: COLLAGENASE OINT 30 GM TUBE TOPICAL SCH (09:56)
[2016-12-24] MEDS: LEVOFLOXACIN 500 MG PREMIX INJ 100 ML IV SCH (09:56)
--- NOTE | 2016-12-24 10:32 | HHI.CCPN ---
Subjective Remarks/Hospital Course Hospital Course: This is an 89yF with history of congestive heart failure with a prior EF of 35% , end-stage renal disease on HD who initially presented to the hospital with urinary tract infection. She was actually scheduled to be discharged today when she had a significant hemoglobin drop from 7.7 --> 6.3, rechecked and was down to 5. At that time, she did not have any overt signs of bleeding. However , this afternoon she had a large melanotic bowel movement and became hemodynamically unstable with SBP in the 80s, and felt very fatigued. A rapid response was called. I immediately evaluated the patient. She was diaphoretic and hypotensive. very pale appearing. We immediately ordered 2 units uncrossmatched emergency release blood from the blood bank, and we transferred her emergently to the ICU. At this point, she also had no iv access. Vascular access team was at bedside and placed an 18g piv for us. I additionally placed a second 18g piv so we could maintain 2 large bore piv access at all times. Unfortunately, due to the hemodynamically unstable nature of the patient, additional information is unobtainable from the patient. The family medicine team did talk with her son and medical decision maker, and he stated that he wanted to keep the DNR status in place. He did say that transient intubation for a GI procedure would be acceptable for her as long as long-term ventilation was not considered. We will proceed with medically aggressive care with DNR in place and intubation only for procedures. 12/19: GI secured multiple gastric ulcers with cauterization and epinephrine. intubated for airway protection and left intubated to watch clinical course. this morning received 2 units prbc with appropriate response. IHD today. I had a long talk with her daughter, where I reiterated that the decision by the family to intubate the patient for this one procedure is a reasonable one, but if she did not extubate on pathway, or if she extubated and failed from a pulmonary standpoint, the entire family agrees that the patient was strict in her wishes to remain DNR/DNI, and a re-intubation for pulmonary reasons was likely against her wishes. 12/20: Patient remains intubated, sedated with propofol. Wakes up follows commands. WBC improving 23.9 to 20, Hb stable. Chest x-ray pending 12/21: Patient is lethargic and week but wakes up and follows commands. Hypoglycemic with blood sugar in 50s, receiving orange juice through OG tube 12/22: s/p Bronchoscopy yesterday with thick yellow mucus plug removed L main bronchus with re expansion of lung. Tolerating CPAP. Plan is to extubate today. 12/23: Currently on 3 L nasal cannula. Advanced to a pured diet with thickened liquids. Afebrile. Positive BM. On D10 secondary hyperglycemia Subjective: 12/24: Left lung continues to collapse. Saturating 95 percent on 2 L saturation probe except. Very poor appetite. -3 L of hemodialysis yesterday. Objective Vital Signs Date Time Temp Pulse Resp B/P Pulse Ox O2 Delivery O2 Flow Rate FiO2 12/24/16 07:54 95 Nasal Cannula 2.00 12/24/16 06:00 109 12/24/16 04:00 97.8 14 109/52 12/22/16 08:35 40 Intake and Output 12/23/16 12/23/16 12/24/16 08:00 16:00 00:00 Intake Total 340 ml 369 ml 289 ml Output Total 0 ml 3000 ml 0 ml Balance 340 ml -2631 ml 289 ml Result Diagram: 12/23/16 1332 12/23/16 1332 Other Results Microbiology Date/Time Procedure Status Source Growth 12/22/16 11:50 Respiratory Culture - Preliminary Resulted Oral Mouth 12/22/16 11:50 Gram Stain - Final Resulted Wound Other 12/22/16 11:50 Wound Culture - Preliminary Resulted Group D Enterococcus 12/22/16 11:50 Acid Fast Stain Worksheet Wound Other Pending 12/22/16 11:50 Mycobacterial Culture Worksheet Wound Other Pending 12/21/16 23:00 Fungal Smear - Final Resulted Bronchial Washings Bronchial 12/21/16 23:00 Fungal Culture Resulted Bronchial Washings Bronchial Pending 12/21/16 13:53 Aerobic Blood Culture - Preliminary Resulted Blood Peripheral NO GROWTH IN 2 DAYS 12/21/16 13:53 Anaerobic Blood Culture - Preliminary Resulted Blood Peripheral NO GROWTH IN 2 DAYS Imaging Last Impressions Chest X-Ray 12/24/16 0600 Signed Impressions: Service Date/Time: Saturday, December 24, 2016 03:54 - CONCLUSION: 1. Worsening left-sided atelectasis and volume loss. Amol Cleaning MD Hip and Pelvis X-Ray 12/15/16 Signed Impressions: Service Date/Time: Thursday, December 15, 2016 05:00 - CONCLUSION: Intact total hip prosthesis for technique and extensive stool and osteopenia as above. Rigoberto Valencia MD Head CT 12/15/16 0000 Signed Impressions: Service Date/Time: Thursday, December 15, 2016 04:53 - CONCLUSION: Chronic and small vessel ischemic changes without any evidence for acute hemorrhage or mass effect. Rigoberto Valencia MD Cervical Spine CT 12/15/16 Signed Impressions: Service Date/Time: Thursday, December 15, 2016 04:53 - CONCLUSION: Neural foramina compromise right C3-4, right C5-C6 and bilateral lateral recess compromise C5- 6. Rigoberto Valencia MD Objective Remarks GENERAL: 89-year-old female, critically ill currently resting in bed on nasal cannula SKIN: Warm and dry. Obvious ecchymosis bilateral upper extremities HEAD: Atraumatic. Normocephalic. EYES: Pupils equal and round about 2 mm bilaterally and reactive. No scleral icterus. No injection or drainage. ENT: No nasal bleeding or discharge. Mucous membranes pink and moist. NECK: Trachea midline. No JVD. CARDIOVASCULAR: Tachycardia, normal rhythm. S1, S2. No S4. Without murmur RESPIRATORY: Diminished breath sounds throughout left lungs. Positive end expiratory wheeze.. GASTROINTESTINAL: Abdomen soft, non-tender, nondistended. Active bowel sounds. MUSCULOSKELETAL: Extremities with trace lower extremity edema. Upper extremity' s with obvious edema and ecchymosis. Right AV fistula positive thrill. NEUROLOGICAL: Awake and alert. No obvious cranial nerve deficits. Motor grossly within normal limits. Five out of 5 muscle strength in the arms and legs. Normal speech. A/P Assessment and Plan Neuro/Psych: Macular degeneration History of CVA Dementia Acetaminophen for fever/pain Holding Desyrel 50 at night for depression. Continue latanoprost 0.005% 1 drop each eye at night for macular degeneration CV: Chronic systolic ejection failure ejection fraction 35% History of hypertension Dyslipidemia History of paroxysmal atrial fibrillation Peripheral vascular disease Disease with stent placement question elisa Holding Coreg 25 twice a day, Norvasc 5 mg daily for hypertension. Holding Plavix 75 mg by mouth daily in light of gastric ulcer Okayed resume aspirin 81 mg daily for A. fib by GI Continue Pravachol 40 mg by mouth daily for dyslipidemia Resp: Recent history of left mucous plugging Respiratory insufficiency Nasal cannula to maintain saturations greater than equal to 92% A cappella/PEP/EZ PAP every 4 hours with DuoNeb therapies Follow-up chest x-ray in a.m. Add 3% hypertonic saline every 4 hours with breathing treatments GI: Upper GI bleed secondary to peptic ulcer Gastroesophageal reflux disease S/P EGD with cauterization (12/18/16) ----> bleeding ulcer antrum controlled with injection epinephrine and ablation. Currently Protonix 40 mEq IV twice a day MiraLAX daily for bowel regimen On a pured diet with thickened liquids : Ariza not indicated/anuric Endo: Hypothyroidism Hypoglycemia Continue Synthroid at 112 mcg by mouth daily Currently on D10 peripherally at 30 cc an hour. Currently on diet. We'll discontinue D10 start D5 normal saline at 40 cc an hour 1 bag. Renal: End-stage renal disease on hemodialysis Sunday//Sunday Status post hemodialysis today -3 L Continue PhosLo 667 3 times a day for secondary hyperparathyroidism Heme: Leukocytosis Normocytic anemia Monitor CBC daily. Follow trends. Status post trans fusion 6 PRBCs, 2 FFP this admission Leukemoid versus infectious for elevated WBC ID: Group D enterococcus from back sacral decubitus ulcer wound Continue Levaquin/Zosyn Pertinent cultures 12/15: Blood cultures 2 - no growth 12/15 - urine - negative 12/21 - blood cultures 2 - no growth 12/21 - bronchoscopy - no growth/negative AFB/fungal 12/22 - mouth - no growth 12/22 - wound - group D enterococcus MSK: Osteoporosis/osteoarthritis PT/OT evaluate and treat Continue vitamin D3 2000 units daily FEN: Hyponatremia Repeat BMP in a.m. Follow trends Access - Utilize peripheral IV. Central line if indicated Prophylaxis - GI - Protonix twice a day - DVT - SCD/chemical prophylaxis currently on hold with recent gastric ulcer bleeding Critical Care: The total critical care time was 35 minutes. Time to perform other separately billable procedures was not included in the critical care time. Aram Strickland MD Dec 24, 2016 10:32
--- NOTE | 2016-12-24 11:13 | HHI.FPPN ---
Subjective Remarks No acute events. Lying on bed with nasal cannula in place. Answers simple questions, difficult to understand what she is saying. Does not specify any specific pain. Having poor PO intake per report, now on pureed diet with thickened liquids. Objective Vitals Vital Signs Date Time Temp Pulse Resp B/P Pulse Ox O2 Delivery O2 Flow Rate FiO2 12/24/16 07:54 95 Nasal Cannula 2.00 12/24/16 06:00 109 12/24/16 04:00 97.8 110 14 109/52 97 12/24/16 04:00 110 12/24/16 02:00 115 12/24/16 00:00 109 12/24/16 00:00 98.0 109 18 103/55 98 12/23/16 22:00 109 12/23/16 21:10 96 Nasal Cannula 3.00 12/23/16 20:00 98.8 109 16 110/58 95 12/23/16 20:00 109 12/23/16 18:00 110 12/23/16 16:00 98.5 110 22 119/67 96 12/23/16 16:00 110 12/23/16 14:00 110 12/23/16 12:00 97.5 109 24 122/57 94 12/23/16 12:00 109 I/O 12/23/16 12/23/16 12/23/16 12/24/16 12/24/16 12/24/16 07:00 15:00 23:00 07:00 15:00 23:00 Intake Total 340 ml 369 ml 289 ml 279 ml Output Total 0 ml 3000 ml 0 ml 0 ml Balance 340 ml -2631 ml 289 ml 279 ml Intake Oral 50 ml IV Total 280 ml 319 ml 289 ml 279 ml Other 60 ml Output Urine Total 0 ml 0 ml 0 ml 0 ml Hemodialysis 3000 ml # Bowel Movements 1 1 0 1 Result Diagram: 12/23/16 1332 12/23/16 1332 Objective Remarks GENERAL: Awake in bed, NC 2 L/min, NG tube in place for feedings. SKIN: Pallor. Stage 2-3 sacral decubitus ulcer (dressing changed 12/14, sees wound care), stage 2-3 pressure ulcer R posterior calf, healing. Skin abrasion over L anterior warren. Several bruises over shins and forearms in various stages of healing. CARDIOVASCULAR: Normal rate, irregularly irregular rhythm. Normal S1/S2. No MRG RESPIRATORY: Decreased breath sounds left lower lung field anteriorly. Crackles bilateral bases. ABDOMEN: Soft, non-distended, non-tender. MUSCULOSKELETAL: Extremities without clubbing, cyanosis, or edema. Wounds as documented above. NEURO: Awake, alert. Responds to yes/no questions. Vocalizing but not articulating well at present. Procedures Hemodialysis - Sun//Sun schedule Bianchi-endoscopy - 12/18/16 A/P Assessment and Plan 89 yo female with PMH of CHF with last echo 2014 showing EF 35%, ESRD on dialysis TTS, CAD s/p stenting, sacral decubitus ulcers presenting after being found on the ground at custodial. Sent to the ED for evaluation and was admitted for altered mental status and urinary tract infection. Discharge Planning Unclear; pending stabilization of medical issues and discussion with palliative care team Problem List: (1) Streptococcal infection group D enterococcus Status: Acute Plan: Wound culture showing Group D enterococcus, elevated white count, no fevers. - Continue Zosyn - Monitor white count, vital signs - Follow blood culture, no growth in 2 days - Wound care as below (2) Acute upper GI bleed Status: Resolved Plan: GIB noted by dropping H/H, large bloody BM on 12/18. EGD 12/18 showed bleeding peptic ulcers, now s/p cauterization. H/H stable - Government [employer] Consultant consulted, appreciate recommendations - CXR today AM showing probable worsened atelectasis on left side - EZPAP ordered, will monitor clinically - GI consulted, appreciate recommendations - S/p EGD with cautery of peptic ulcers; per GI 30-40% chance of re-bleeding - PPI = 40 mg Protonix IV BID - S/p 6 units PRBC, 2 units FFP - Palliative care consulted, appreciate assistance - Alternative code status = re-intubation okay, no chest compressions or shock, ACLS drugs okay - Would qualify for hospice given advanced age and medical comorbidities, will be ongoing discussion with family - Nutrition consult for dietary recommendations, currently getting tube feedings - Speech therapy to evaluate swallow function for possible progression of diet once more stable - Resumed aspirin, holding Plavix (3) Urinary tract infection Status: Resolved Plan: UA with leuk esterase and bacteria (catheterized sample). Leukocytosis but no fevers. UCx showing contaminant (50-100k mixed GPC). - s/p Levaquin dosed renally (500 mg Q48H), s/p coverage of 5 days with fluoroquinolone (cipro day 1, Levaquin x2 doses with each dose covering 48 hours ) (4) Altered mental status Status: Resolved Plan: Presented with altered mental status due to UTI prior to development of GIB. S/p treatment with Levaquin. Currently on Zosyn as above for leukocytosis with unclear etiology. Mental status improving post-extubation. EKG without tachycardia, ST-T wave changes; AFib with normal HR EEG showing no evidence of seizure disorder Troponins/EKG reassuring ECHO done, EF of 55 to 60% UCx 50-100k CFU/mL mixed GPC - Has been getting Tylenol 1 g IV Q6H for pain, on discharge can consider scheduling 650 mg PO every 6-8 hours - Antibiotics as above for leukocytosis - Delirium prevention: sunlight, no sleeping during the day, hold sedating medications (5) CHF, chronic Status: Chronic Plan: EF 55-60%, no signs of pulmonary edema on exam - Continue home beta rock (6) ESRD (end stage renal disease) on dialysis Status: Chronic Plan: Creatinine at baseline. Hemodialysis on a Sunday, , Sunday schedule. - Nephrology on board, appreciate recs - Continue phosphate binder, Ca, vitamin D - Continue outpatient dialysis - Renally dose medicines, avoid nephrotoxic agents (7) Anemia of renal disease Status: Chronic Plan: Anemia of chronic disease Serum iron 22 TIBC 150 % saturation ~15 - Nephrology consulted, appreciate recs - Venofer as ordered by nephrology (daily) (8) Sacral decubitus ulcer Status: Chronic Plan: Stable from previous descriptions in outpatient setting Wound culture obtained by [facility] due to leukocytosis - F/u wound culture - Consult wound nurse, appreciate recs - Rotate patient every 2 hours - Santyl dressing changes daily on sacral ulcer, not on other ulcers - On discharge, continue treatment of wounds per patient's wound care physician (9) Essential hypertension Status: Chronic Plan: Borderline low blood pressures - Holding Coreg (10) Coronary artery disease Status: Chronic Plan: S/p CABG - Resumed aspirin - Holding plavix - Continue statin (11) History of right hip hemiarthroplasty Status: Chronic Plan: No abnormalities on X-ray - Pain as above (12) Paroxysmal atrial fibrillation Status: Chronic Plan: Had been on Coumadin previously, but due to recent bleed requiring hospital visit this was discontinued. - Continue rate control with beta rock - Resumed aspirin - Holding Plavix (13) Dementia Status: Chronic Plan: Dementia, at high risk for delirium - Delirium precautions (14) FEN/PPX Status: Acute Plan: Fluids: use with caution Elecs: Monitor and replete PRN Nutrition: Pureed diet, thickened liquids DVT: Held due to GIB sdw Dr. 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
[2016-12-24 11:21] LABS: AUTOMATED NEUTROPHIL # 20.2 TH/MM3 (1.8-7.7); BASOPHIL # 0.1 TH/MM3 (0-0.2); BASOPHIL % 0.3 % (0.0-2.0); EOSINOPHIL # 0.1 TH/MM3 (0-0.4); EOSINOPHIL % 0.6 % (0.0-4.0); HEMATOCRIT 32.6 % (35.0-46.0); LYMPH % 4.3 % (9.0-44.0); MEAN CELL VOLUME 91.7 FL (80.0-100.0); MEAN CORPUSCULAR HEMOGLOBIN 30.1 PG (27.0-34.0); MEAN CORPUSCULAR HGB CONC 32.8 % (32.0-36.0); MONO % 7.9 % (0.0-8.0); NEUT % 86.9 % (16.0-70.0); PLATELET COUNT 283 TH/MM3 (150-450); RED BLOOD COUNT 3.55 MIL/MM3 (4.00-5.30); RED CELL DISTRIBUTION WIDTH 16.4 % (11.6-17.2); WHITE BLOOD COUNT 23.2 TH/MM3 (4.0-11.0)
[2016-12-24 11:22] LABS: HEMO FLAGS AUTO DIFF
[2016-12-24 11:41] LABS: ALT (GPT) 11 U/L (10-53); ANION GAP 11 MEQ/L (5-15); AST (GOT) 18 U/L (15-37); BICARBONATE 30.1 MEQ/L (21.0-32.0); BLOOD UREA NITROGEN 19 MG/DL (7-18); CHLORIDE 94 MEQ/L (98-107); GLOMERULAR FILTRATION RATE 15 ML/MIN (>89); MAGNESIUM 1.6 MG/DL (1.5-2.5); POTASSIUM 3.9 MEQ/L (3.5-5.1); SODIUM (NA) 135 MEQ/L (136-145)
[2016-12-24 11:44] LABS: ALKALINE PHOSPHATASE 132 U/L (45-117); TOTAL BILIRUBIN ADULT 0.9 MG/DL (0.2-1.0)
[2016-12-24] MEDS ORDERED: ROCURONIUM INJ 50 MG/5 ML VIAL IV ONE (11:45)
[2016-12-24] MEDS ORDERED: ETOMIDATE 20 MG/10 ML VIAL IV PUSH ONE (11:45)
[2016-12-24 12:23] LABS: METAMYELOCYTES 1 % (0-1); MYELOCYTES 4 % (0-0); NEUTROPHIL # MANUAL DIFF 18.6 TH/MM3 (1.8-7.7); PLATELET ESTIMATE SMEAR NORMAL (NORMAL); PLATELET MORPHOLOGY NORMAL (NORMAL); POLYS (SEG NEUTROPHILS) 75 % (16-70); SCAN/DIFF FINAL DIFF MANUAL; WBC DIFF SAMPLE 100
--- NOTE | 2016-12-24 13:11 | RADRPT ---
EXAM DATE/TIME: 12/24/2016 12:00 [facility] COMPARISON: CHEST SINGLE AP, December 15, 2016, 7:41. CHEST SINGLE AP, December 24, 2016, 3:54. INDICATIONS : Shortness of breath. RADIATION DOSE: 5.23 CTDIvol (mGy) MEDICAL HISTORY : Stroke. Renal insufficiency, chronic. SURGICAL HISTORY : Lobectomy. ENCOUNTER: Initial ACUITY: 1 day PAIN SCALE: Non-responsive LOCATION: Bilateral chest TECHNIQUE: Volumetric scanning of the chest was performed. Using automated exposure control and adjustment of t he mA and/or kV according to patient size, radiation dose was kept as low as reasonably achievable to obtain optimal diagnostic quality images. FINDINGS: There is dense consolidation of the entire left lung with a small left pleural effusion. Mild ri ght lung base atelectasis and/or infiltrate is seen. A central obstructive mass on the left side is d ifficult to exclude and the left main bronchus appears to be filled with soft tissue density may be t umor versus mucous plugging. There is evidence for prior median sternotomy. Coronary artery calcifica tions are seen typically seen with CAD and need to be evaluated clinically. CONCLUSION: The left main bronchus is filled with soft tissue density could be secretions with mucous plugging ve rsus neoplastic process and the entire left lung is consolidated/collapsed with a tiny left pleural e ffusion. Rigoberto Valencia MD on December 24, 2016 at 13:05 Board Certified Radiologist. This report was verified electronically.
[2016-12-24] MEDS ORDERED: EPINEPHrine HCL (1:1000) 1 MG/ML VIAL ONE (13:51)
--- NOTE | 2016-12-24 14:04 | PD.PROCEDR ---
Procedure Note Procedure DATE: 12/24/2016 PROCEDURE: Orotracheal intubation INDICATION: Left mainstem mucous plugging DETAILS OF PROCEDURE The patient was placed in optimal position and preoxygenated with 100% FiO2 via bag valve mask. At the start oxygen saturation was 95%. The patient was administered 20 mg etomidate IV. I entered the oropharynx with a size 4 GVL glidescope blade and obtained a grade 2 view of the airway. On single attempt a size 8.0 cuffed endotracheal tube was passed through the vocal cords. Correct tube location was confirmed with end tidal CO2 detector and by auscultating over bilateral lung amaral. The endotracheal tube was secured with adhesive tape at a depth of 24 cm at the lips. The patient was connected to the ventilator. The patient tolerated the procedure well without any apparent complications. Oxygen saturations were maintained greater than 95% all times. STAT chest x-ray pending at time of dictation. Aram Strickland MD Dec 24, 2016 14:04
--- NOTE | 2016-12-24 14:04 | PD.PROCEDR ---
Procedure Note Procedure Procedure Procedure: Fiberoptic Bronchoscopy Diagnosis/indication: Complete collapse left lung Consent: Obtained from family Anesthesia: Propofol, etomidate and Rocuronium Description of the Procedure: The patient was sedated and mechanically ventilated, and placed on 100% FIO2 and a volume control mode of ventilation. The fiberoptic bronchoscope was inserted via a 0.0 ETT. The trachea, right and left mainstem bronchi, were evaluated. Left mainstem bronchus was completely occluded with thick white mucus plug. This was removed with aggressive lavage and suctioning. There was evidence of of L lower lobectomy. L upper lobe and lingular segmental bronchi with large amount of thick white secretions. These were lavaged and removed and BAL specimen collected. There was some suction without obvious bleeding. RUL bronchial tree was devoid of major secretions BAL samples: 1 BALBINA The patient tolerated the procedure well with no hemodynamic instability or hypoxia. There were no immediate complications noted. There was minimal EBL. A chest x-ray has been ordered. I personally performed the procedure. Aram Strickland MD Dec 24, 2016 14:04
--- NOTE | 2016-12-24 14:40 | RADRPT ---
EXAM DATE/TIME: 12/24/2016 15:17 [facility] COMPARISON: CHEST SINGLE AP, December 24, 2016, 3:54. INDICATIONS : Post intubation MEDICAL HISTORY : Hypertension. Chronic obstructive pulmonary disease. Congestive heart failure. SURGICAL HISTORY : Lumpectomy Valve replacement ENCOUNTER: Subsequent ACUITY: 1 week PAIN SCORE: Non-responsive. LOCATION: Bilateral chest FINDINGS: Significant improvement in the aeration of the left lung since the study from earlier the same day wi th slight perivascular parenchymal process remaining on the left side extending to the left lung base . ET tube is present with tip overlapping approximately 2 cm above the kendy. NG tube is present wit h tip in the stomach. There is evidence for prior median sternotomy. CONCLUSION: Dramatic improvement in the aeration of the left lung since the study from earlier the same day. Rigoberto Valencia MD on December 24, 2016 at 14:36 Board Certified Radiologist. This report was verified electronically.
[2016-12-24] MEDS: SODIUM CHLORIDE 0.9% FLUSH 10 ML FLUSH IVF SCH (15:30)
--- NOTE | 2016-12-24 15:30 | PD.PROCEDR ---
Central Line Procedure REASON FOR PROCEDURE Central venous access PROCEDURE PERFORMED Central line placement: Left IJ CVL CONSENT Informed consent for procedure was obtained. The risks and benefits of the procedure were discussed to include but limited to bleeding, clot formation, infection, and even . ANESTHESIA Local injection of 1% Lidocaine DESCRIPTION OF THE PROCEDURE The patient was placed in supine, mild Trendelenburg position. The area was exposed and cleansed with ChloraPrep, times two. Large sterile drape was used to cover the patient, with the site exposed, under sterile conditions including cap, face mask, sterile gown, and sterile gloves. On single attempt, the introducer needle was inserted with negative pressure in syringe and venous flash was obtained. The guide wire was then advanced without any restriction and the needle was removed. The dilator was used without any complications. Using Seldinger technique the triple-lumen catheter was advanced over the guide wire to a depth of 19 centimeters. The guide wire was removed. All ports were aspirated with dark venous blood return and flushed easily with sterile saline. All ports were capped. Antibiotic disc was placed around central line at puncture site. The central line was secured to the skin with two interrupted 2.0 silk sutures. The area was bandaged with sterile see-through central line bandage. RADIOLOGICAL DATA Ultrasound guidance was used to locate left internal jugular vein. Doppler/ color flow was used to confirm venous flow. COMPLICATIONS: No apparent complications ESTIMATED BLOOD LOSS: Less than 1 cc. Aram Strickland MD Dec 24, 2016 15:30
[2016-12-24 15:31] LABS: BLOOD GAS BASE EXCESS 3.8 mmol/L (-2-2); BLOOD GAS CARBOXYHEMOGLOBIN 2.1 % (0-4); BLOOD GAS HCO3 26 mmol/L (22-26); BLOOD GAS METHEMOGLOBIN 1.1 % (0-2); BLOOD GAS O2 HGB SATURATION 97 % (90-100); BLOOD GAS PCO2 30 mmHg (38-42); BLOOD GAS PO2 219 mmHg (61-120); BLOOD GAS TOTAL HGB 9.9 G/DL (12.0-16.0); TEMP CORR TO 98.6
[2016-12-24 15:32] LABS: CRITICAL VALUE YES; DRAW SITE LT BRACHIAL; FIO2 50 %; NUMBER OF ARTERIAL PUNCTURES 1; OXYGEN DEVICE VENTILATOR; STAT NO; VENT SETTINGS A/C 450/16/8PEEP
--- NOTE | 2016-12-24 15:50 | RADRPT ---
EXAM DATE/TIME: 12/24/2016 14:41 [facility] COMPARISON: No previous studies available for comparison. INDICATIONS : Left arm swelling. MEDICAL HISTORY : Hypercholesterolemia. Stroke. Congestive heart failure. Glaucoma. Hyperlipidemia. Hypertension. COPD. A-Fib. Arthritis. SURGICAL HISTORY : Left lobectomy. Tricuspid valve replacement. Lumbar fusion. ENCOUNTER: Initial ACUITY: 1 day PAIN SCORE: Non-responsive LOCATION: Left arm. FINDINGS: There is spontaneous flow documented in the brachial, basilic, cephalic, axillary, and subclavian vei ns. The vessels are compressible and augmentation response is documented. No filling defects are se en. The flow is phasic with respiration. Direction of flow in the jugular vein is caudal. CONCLUSION: Normal examination. Benjamin Oquendo MD on December 24, 2016 at 15:47 Board Certified Radiologist. This report was verified electronically.
--- NOTE | 2016-12-24 16:01 | RADRPT ---
EXAM DATE/TIME: 12/24/2016 15:25 [facility] COMPARISON: CHEST SINGLE AP, December 24, 2016, 15:17. INDICATIONS : Evaluate for central line placement. MEDICAL HISTORY : Stroke. Renal insufficiency, chronic. SURGICAL HISTORY : Lobectomy. ENCOUNTER: Initial ACUITY: 1 day PAIN SCORE: Non-responsive. LOCATION: Bilateral chest FINDINGS: A single view of the chest demonstrates endotracheal tube in satisfactory position. NG enters stomach . Left central line in superior vena cava. Right-sided subclavian and axillary stent present. Postope rative CABG. Basilar airspace disease and small effusions similar to exam from earlier today. CONCLUSION: 1. Placement of left central line into upper portion superior vena cava without pneumothorax. Endotra cheal tube and nasogastric tube unchanged. Benjamin Oquendo MD on December 24, 2016 at 15:55 Board Certified Radiologist. This report was verified electronically.
[2016-12-24 16:41] LABS: BRONCHOALVEOLAR LAVAGE RBC 16625 /MM3; BRONCHOALVEOLAR LAVAGE WBC 1625 /MM3; BRONCHOAVEOLAR EOSINOPHILS 1 %; BRONCHOAVEOLAR LYMPHOCYTES 0 %; BRONCHOAVEOLAR NEUTROPHILS 99 %; LAVAGE TOTAL WBC COUNT 35.8 MILLION (4.7-7.1)
[2016-12-24] MEDS: PROPOFOL 1000 MG/100 ML INJ 100 ML IV SCH (17:34)
[2016-12-24] MEDS: CHLORHEXIDINE 0.12% (ORAL KIT) 15 ML CUP MT SCH (20:00)
[2016-12-25] VITALS (20 sets, daily range): BP systolic 81–132; BP diastolic 52–71; PULSE 87–133; RESP 14–31; TEMP 97.8–98.5; O2SAT 95–100
[2016-12-25] MEDS: PANTOPRAZOLE SODIUM 40 MG VIAL IV PUSH SCH ×3 (02:51→20:28)
[2016-12-25] MEDS: PIPERACIL-TAZO 2.25 GM PREMIX 50 ML IV SCH ×4 (02:51→20:32)
[2016-12-25] MEDS: LATANOPROST 0.005% OPHT SOLN 2.5 ML BTL EACH EYE SCH ×2 (02:52→20:27)
[2016-12-25] MEDS: SODIUM CHLORIDE 0.9% FLUSH 10 ML FLUSH IV FLUSH SCH ×3 (02:52→20:28)
[2016-12-25] MEDS: DOCUSATE SODIUM 50 MG/SENNA 8.6 MG TAB PO PRN (02:52)
[2016-12-25] MEDS: CHLORHEXIDINE 0.12% (ORAL KIT) 15 ML CUP MT SCH ×5 (02:54→20:27)
[2016-12-25] MEDS: RESP: SODIUM CHLORIDE 3% 4 ML NEB NEB SCH ×5 (03:13→20:46)
[2016-12-25] MEDS: RESP: ALBUTEROL 2.5 MG/IPRATROPIUM 0.5 MG NEB (SCH) NEB ×5 (03:13→20:46)
[2016-12-25] MEDS: LEVOTHYROXINE SODIUM 112 MCG TAB PO SCH (06:00)
[2016-12-25] MEDS: guaiFENesin SOLUTION 200 MG/10 ML CUP PO SCH ×3 (06:00→20:29)
[2016-12-25 06:04] LABS: HEMATOCRIT 32.5 % (35.0-46.0); MEAN CELL VOLUME 90.8 FL (80.0-100.0); MEAN CORPUSCULAR HEMOGLOBIN 30.3 PG (27.0-34.0); MEAN CORPUSCULAR HGB CONC 33.4 % (32.0-36.0); PLATELET COUNT 236 TH/MM3 (150-450); RED BLOOD COUNT 3.58 MIL/MM3 (4.00-5.30); RED CELL DISTRIBUTION WIDTH 16.4 % (11.6-17.2); WHITE BLOOD COUNT 20.1 TH/MM3 (4.0-11.0)
[2016-12-25 06:07] LABS: HEMO FLAGS AUTO DIFF
[2016-12-25 06:23] LABS: ALKALINE PHOSPHATASE 108 U/L (45-117); ALT (GPT) 9 U/L (10-53); ANION GAP 10 MEQ/L (5-15); AST (GOT) 20 U/L (15-37); BICARBONATE 29.6 MEQ/L (21.0-32.0); BLOOD UREA NITROGEN 20 MG/DL (7-18); CHLORIDE 96 MEQ/L (98-107); GLOMERULAR FILTRATION RATE 13 ML/MIN (>89); MAGNESIUM 1.6 MG/DL (1.5-2.5); POTASSIUM 4.5 MEQ/L (3.5-5.1); SODIUM (NA) 136 MEQ/L (136-145); TOTAL BILIRUBIN ADULT 0.7 MG/DL (0.2-1.0)
[2016-12-25 08:10] LABS: BANDS 1 % (0-6); EOSINOPHILS 4 % (0-4); METAMYELOCYTES 2 % (0-1); MYELOCYTES 1 % (0-0); NEUTROPHIL # MANUAL DIFF 15.3 TH/MM3 (1.8-7.7); POLYS (SEG NEUTROPHILS) 72 % (16-70); WBC DIFF SAMPLE 100
[2016-12-25 08:11] LABS: PLATELET ESTIMATE SMEAR NORMAL (NORMAL)
[2016-12-25 08:12] LABS: PLATELET MORPHOLOGY NORMAL (NORMAL); SCAN/DIFF FINAL DIFF MANUAL
--- NOTE | 2016-12-25 08:46 | HHI.CCPN ---
Subjective Remarks/Hospital Course Hospital Course: This is an 89yF with history of congestive heart failure with a prior EF of 35% , end-stage renal disease on HD who initially presented to the hospital with urinary tract infection. She was actually scheduled to be discharged today when she had a significant hemoglobin drop from 7.7 --> 6.3, rechecked and was down to 5. At that time, she did not have any overt signs of bleeding. However , this afternoon she had a large melanotic bowel movement and became hemodynamically unstable with SBP in the 80s, and felt very fatigued. A rapid response was called. I immediately evaluated the patient. She was diaphoretic and hypotensive. very pale appearing. We immediately ordered 2 units uncrossmatched emergency release blood from the blood bank, and we transferred her emergently to the ICU. At this point, she also had no iv access. Vascular access team was at bedside and placed an 18g piv for us. I additionally placed a second 18g piv so we could maintain 2 large bore piv access at all times. Unfortunately, due to the hemodynamically unstable nature of the patient, additional information is unobtainable from the patient. The family medicine team did talk with her son and medical decision maker, and he stated that he wanted to keep the DNR status in place. He did say that transient intubation for a GI procedure would be acceptable for her as long as long-term ventilation was not considered. We will proceed with medically aggressive care with DNR in place and intubation only for procedures. 12/19: GI secured multiple gastric ulcers with cauterization and epinephrine. intubated for airway protection and left intubated to watch clinical course. this morning received 2 units prbc with appropriate response. IHD today. I had a long talk with her daughter, where I reiterated that the decision by the family to intubate the patient for this one procedure is a reasonable one, but if she did not extubate on pathway, or if she extubated and failed from a pulmonary standpoint, the entire family agrees that the patient was strict in her wishes to remain DNR/DNI, and a re-intubation for pulmonary reasons was likely against her wishes. 12/20: Patient remains intubated, sedated with propofol. Wakes up follows commands. WBC improving 23.9 to 20, Hb stable. Chest x-ray pending 12/21: Patient is lethargic and week but wakes up and follows commands. Hypoglycemic with blood sugar in 50s, receiving orange juice through OG tube 12/22: s/p Bronchoscopy yesterday with thick yellow mucus plug removed L main bronchus with re expansion of lung. Tolerating CPAP. Plan is to extubate today. 12/23: Currently on 3 L nasal cannula. Advanced to a pured diet with thickened liquids. Afebrile. Positive BM. On D10 secondary hyperglycemia 12/24: Left lung continues to collapse. Saturating 95 percent on 2 L saturation probe except. Very poor appetite. -3 L of hemodialysis yesterday. Subjective: 12/25: Status post intubation and bronchoscopy with thick white mucous plug and left mainstem. Post bronchoscopy x-ray revealed reexpansion of lung. AM x-ray pending. Noted low phosphorus currently been replaced. Resting comfortably in bed. Objective Vital Signs Date Time Temp Pulse Resp B/P Pulse Ox O2 Delivery O2 Flow Rate FiO2 12/25/16 08:28 100 28 12/25/16 06:00 93 12/25/16 04:00 98.5 14 102/58 12/24/16 07:54 Nasal Cannula 2.00 Intake and Output 12/24/16 12/24/16 12/25/16 08:00 16:00 00:00 Intake Total 279 ml 492 ml 365 ml Output Total 0 ml 0 ml 0 ml Balance 279 ml 492 ml 365 ml Result Diagram: 12/25/16 0445 12/25/16 0445 Other Results Microbiology Date/Time Procedure Status Source Growth 12/24/16 13:45 Gram Stain Received Bronchial Washings Left Upper Lobe Pending 12/24/16 13:45 Bronchial Culture Received Bronchial Washings Left Upper Lobe Pending 12/24/16 13:45 Fungal Smear Received Bronchial Washings Left Upper Lobe Pending 12/24/16 13:45 Fungal Culture Received Bronchial Washings Left Upper Lobe Pending 12/24/16 13:45 Acid Fast Stain Received Bronchial Washings Left Upper Lobe Pending 12/24/16 13:45 Mycobacterial Culture Received Bronchial Washings Left Upper Lobe Pending 12/22/16 11:50 Respiratory Culture - Final Complete Oral Mouth 12/22/16 11:50 Gram Stain - Final Complete Wound Other 12/22/16 11:50 Wound Culture - Final Complete Enterococcus Faecalis 12/22/16 11:50 Acid Fast Stain - Final Resulted Wound Other NO ACID FAST BACILLI SEEN 12/22/16 11:50 Mycobacterial Culture Resulted Wound Other Pending 12/21/16 23:00 Fungal Smear - Final Resulted Bronchial Washings Bronchial 12/21/16 23:00 Fungal Culture Resulted Bronchial Washings Bronchial Pending 12/21/16 13:53 Aerobic Blood Culture - Preliminary Resulted Blood Peripheral NO GROWTH IN 3 DAYS 12/21/16 13:53 Anaerobic Blood Culture - Preliminary Resulted Blood Peripheral NO GROWTH IN 3 DAYS Imaging Last Impressions Chest X-Ray 12/24/16 1528 Signed Impressions: Service Date/Time: Saturday, December 24, 2016 15:25 - CONCLUSION: 1. Placement of left central line into upper portion superior vena cava without pneumothorax. Endotracheal tube and nasogastric tube unchanged. Benjamin Oquendo MD Upper Extremity Ultrasound 12/24/16 0000 Signed Impressions: Service Date/Time: Saturday, December 24, 2016 14:41 - CONCLUSION: Normal examination. Benjamin Oquendo MD Chest CT 12/24/16 0000 Signed Impressions: Service Date/Time: Saturday, December 24, 2016 12:00 - CONCLUSION: The left main bronchus is filled with soft tissue density could be secretions with mucous plugging versus neoplastic process and the entire left lung is consolidated/collapsed with a tiny left pleural effusion. Rigoberto Valencia MD Hip and Pelvis X-Ray 12/15/16 0000 Signed Impressions: Service Date/Time: Thursday, December 15, 2016 05:00 - CONCLUSION: Intact total hip prosthesis for technique and extensive stool and osteopenia as above. Rigoberto Valencia MD Head CT 12/15/16 0000 Signed Impressions: Service Date/Time: Thursday, December 15, 2016 04:53 - CONCLUSION: Chronic and small vessel ischemic changes without any evidence for acute hemorrhage or mass effect. Rigoberto Valencia MD Cervical Spine CT 12/15/16 0000 Signed Impressions: Service Date/Time: Thursday, December 15, 2016 04:53 - CONCLUSION: Neural foramina compromise right C3-4, right C5-C6 and bilateral lateral recess compromise C5- 6. Rigoberto Valencia MD Objective Remarks GENERAL: 89-year-old female, critically ill currently resting in bed on nasal cannula SKIN: Warm and dry. Obvious ecchymosis bilateral upper extremities HEAD: Atraumatic. Normocephalic. EYES: Pupils equal and round about 2 mm bilaterally and reactive. No scleral icterus. No injection or drainage. ENT: No nasal bleeding or discharge. Mucous membranes pink and moist. NECK: Trachea midline. No JVD. CARDIOVASCULAR: Tachycardia, normal rhythm. S1, S2. No S4. Without murmur RESPIRATORY: Poor aeration/breath sounds throughout left lung amaral. Positive end expiratory wheeze.. GASTROINTESTINAL: Abdomen soft, non-tender, nondistended. Active bowel sounds. MUSCULOSKELETAL: Extremities with trace lower extremity edema. Upper extremity' s with obvious edema and ecchymosis. Right AV fistula positive thrill. NEUROLOGICAL: Sedated on the ventilator. Moves all 4 extremities spontaneously. No obvious cranial nerve deficits. A/P Assessment and Plan Neuro/Psych: Macular degeneration History of CVA Dementia On propofol drip for sedation while intubated Goal of RASS -2 Daily sedation vacation Acetaminophen for fever/pain Holding Desyrel 50 at night for depression. Continue latanoprost 0.005% 1 drop each eye at night for macular degeneration CV: Chronic systolic ejection failure ejection fraction 35% History of hypertension Dyslipidemia History of paroxysmal atrial fibrillation Peripheral vascular disease Disease with stent placement question elisa Holding Coreg 25 twice a day, Norvasc 5 mg daily for hypertension. Holding Plavix 75 mg by mouth daily in light of gastric ulcer Okayed resume aspirin 81 mg daily for A. fib by GI Continue Pravachol 40 mg by mouth daily for dyslipidemia Resp: Recent history of left mucous plugging Respiratory insufficiency ACV 14/400/02/04 Bronchodilator therapy every 4 hours and as needed A cappella/PEP/EZ PAP every 4 hours with DuoNeb therapies Follow-up chest x-ray in a.m. Added3% hypertonic saline every 4 hours thin secretions with breathing treatments GI: Upper GI bleed secondary to peptic ulcer Gastroesophageal reflux disease S/P EGD with cauterization (12/18/16) ----> bleeding ulcer antrum controlled with injection epinephrine and ablation. Currently Protonix 40 mEq IV twice a day MiraLAX daily for bowel regimen Tube feeds initiated with Glucerna 1.5. Currently at 30 cc an hour : Ariza not indicated/anuric Endo: Hypothyroidism Hypoglycemia Continue Synthroid at 112 mcg by mouth daily Sliding-scale insulin with Accu-Cheks to maintain euglycemia. Renal: End-stage renal disease on hemodialysis Sunday//Sunday Status post hemodialysis today -3 L Is continue PhosLo 667 3 times a day with low phosphorus Heme: Leukocytosis Normocytic anemia Monitor CBC daily. Follow trends. Status post trans fusion 6 PRBCs, 2 FFP this admission Leukemoid versus infectious for elevated WBC ID: Group D enterococcus from back sacral decubitus ulcer wound Continue Levaquin/Zosyn Pertinent cultures 12/15: Blood cultures 2 - no growth 12/15 - urine - negative 12/21 - blood cultures 2 - no growth 12/21 - bronchoscopy - no growth/negative AFB/fungal 12/22 - mouth - no growth 12/22 - wound -coccus faecalis 12/24 - bronchoscopy - pending MSK: Osteoporosis/osteoarthritis PT/OT evaluate and treat Continue vitamin D3 2000 units daily FEN: Hypophosphatemia Hypomagnesium 30 mmol sodium phosphorus and 2 g mag sulfate IV 1. Recheck in a.m. Replace electrolytes as clinically indicated Access - Utilize peripheral IV. Central line if indicated Prophylaxis - GI - Protonix twice a day - DVT - SCD/chemical prophylaxis currently on hold with recent gastric ulcer bleeding Critical Care: The total critical care time was 35 minutes. Time to perform other separately billable procedures was not included in the critical care time. Aram Strickland MD Dec 25, 2016 08:46
[2016-12-25] MEDS: POLYETHYLENE GLYCOL 17 GM PKG PO SCH (09:00)
[2016-12-25] MEDS: NUTRITIONAL SUPPLEMENTS PO SCH (09:00)
[2016-12-25] MEDS: COLLAGENASE OINT 30 GM TUBE TOPICAL SCH (09:00)
[2016-12-25] MEDS ORDERED: SODIUM PHOSPHATE INJ 30 MMOL in SODIUM CHLOR 0.9% 250 ML INJ 250 ML IV ONE (09:00)
--- NOTE | 2016-12-25 09:19 | RADRPT ---
EXAM DATE/TIME: 12/25/2016 08:41 [facility] COMPARISON: CHEST SINGLE AP, December 24, 2016, 15:25. INDICATIONS : Respiratory Failure. MEDICAL HISTORY : None. SURGICAL HISTORY : None. ENCOUNTER: Subsequent ACUITY: 1 week PAIN SCORE: Non-responsive. LOCATION: chest FINDINGS: Lines and tubes are present not significantly changed. There is a tiny right pleural effusion. Mild d egree of pulmonary venous congestion is suspected. Mild left lung base atelectasis and/or infiltrate is seen. Heart and mediastinum are unremarkable for technique. No definite pneumothorax is seen for t echnique. The rest of the examination has not significantly changed. CONCLUSION: Mild left lung base atelectasis and/or infiltrate is seen and mild case of pulmonary venous congestio n is suspected. Rigoberto Valencia MD on December 25, 2016 at 9:15 Board Certified Radiologist. This report was verified electronically.
[2016-12-25] MEDS: MAGNESIUM SULFATE 1 GM PREMIX 100 ML IV SCH ×2 (09:25→12:28)
[2016-12-25] MEDS: PROPOFOL 1000 MG/100 ML INJ 100 ML IV SCH (09:25)
[2016-12-25] MEDS: PRAVASTATIN SOD 40 MG TAB PO SCH (09:26)
[2016-12-25] MEDS: CHOLECALCIFEROL (VIT D3) 1000 UNIT TAB PO SCH (09:26)
[2016-12-25] MEDS: VITAMIN B CMPLX/VITC/FOLIC AC CAP PO SCH (09:26)
[2016-12-25] MEDS: ASPIRIN EC 81 MG TABEC PO SCH (09:26)
[2016-12-25] MEDS: SODIUM CHLORIDE 0.9% FLUSH 10 ML FLUSH IVF SCH (09:27)
[2016-12-25] MEDS: SODIUM CHLORIDE 0.9% FLUSH 10 ML FLUSH IV FLUSH PRN (09:27)
--- NOTE | 2016-12-25 10:54 | HHI.FPPN ---
Subjective Remarks Reintubated yesterday PM after bronchoscopy. Currently sedated and intubated. FIO2 40%. Other than bronchoscopy for another mucus plug, no acute events overnight. (Kade Tyler MD R1) Objective Vitals Vital Signs Date Time Temp Pulse Resp B/P Pulse Ox O2 Delivery O2 Flow Rate FiO2 12/25/16 10:45 30 12/25/16 08:28 100 28 12/25/16 08:00 30 12/25/16 06:00 93 12/25/16 04:08 100 35 12/25/16 04:00 98.5 101 14 102/58 97 12/25/16 04:00 28 12/25/16 04:00 97 12/25/16 02:00 98 12/25/16 01:15 100 35 12/25/16 00:00 40 12/25/16 00:00 98.4 101 15 102/58 100 12/25/16 00:00 101 12/24/16 22:25 100 40 12/24/16 22:00 101 12/24/16 20:03 100 40 12/24/16 20:00 98.2 104 15 97/58 100 12/24/16 20:00 104 12/24/16 20:00 40 12/24/16 18:00 104 12/24/16 16:00 105 12/24/16 16:00 102 12/24/16 16:00 40 12/24/16 16:00 98.3 107 15 96/58 100 12/24/16 14:46 96 50 12/24/16 14:00 110 12/24/16 13:30 100 100 12/24/16 12:00 104 12/24/16 12:00 98.5 109 16 115/62 96 I/O 12/24/16 12/24/16 12/24/16 12/25/16 12/25/16 12/25/16 07:00 15:00 23:00 07:00 15:00 23:00 Intake Total 279 ml 492 ml 365 ml 385 ml Output Total 0 ml 0 ml 0 ml 0 ml Balance 279 ml 492 ml 365 ml 385 ml IV Total 279 ml 492 ml 365 ml 325 ml Other 60 ml Output Urine Total 0 ml 0 ml 0 ml 0 ml Tube Feeding Residual Discard 0 ml # Bowel Movements 1 1 0 1 (Kade Tyler MD R1) Result Diagram: 12/25/165 12/25/16444 Objective Remarks GENERAL: Sedated/intubated, NAD, NG tube in place for feedings. SKIN: Pallor. Stage 2-3 sacral decubitus ulcer (dressing changed 12/14, sees wound care), stage 2-3 pressure ulcer R posterior calf, healing. Skin abrasion over L anterior warren. Several bruises over shins and forearms in various stages of healing. CARDIOVASCULAR: Normal rate, irregularly irregular rhythm. Normal S1/S2. No MRG RESPIRATORY: Decreased breath sounds left lower lung field anteriorly, less so than exam 12/23. Breath sounds clear. ABDOMEN: Soft, non-distended, non-tender. MUSCULOSKELETAL: Extremities without clubbing, cyanosis, or edema. Wounds as documented above. NEURO: Awake, alert. Responds to yes/no questions. Vocalizing but not articulating well at present. Procedures Hemodialysis - Sun//Sat schedule [facility]-endoscopy - 12/18/16 (Kade Tyler MD R1) A/P Assessment and Plan 89 yo female with PMH of CHF with last echo 2014 showing EF 35%, ESRD on dialysis TTS, CAD s/p stenting, sacral decubitus ulcers presenting after being found on the ground at retirement. Sent to the ED for evaluation and was admitted for altered mental status and urinary tract infection. Discharge Planning Unclear; pending stabilization of medical issues and discussion with palliative care team (Kade Tyler MD R1) Attending Attestation Patient seen and examined, discussed with Dr Tyler. I agree with assessment and management as documented and discussed with me. Pt seen with daughter at the bedside. I updated her regarding plan of care. She is aware of increased risk of reintubation / reoccurrence of mucus plug if she is able to be extubated. (Helne La MD) Problem List: (1) Streptococcal infection group D enterococcus Status: Acute Plan: Wound culture showing Group D enterococcus, elevated white count, no fevers. - Continue Zosyn - Monitor white count, vital signs - Follow blood culture, no growth in 3 days - Wound care as below (2) Acute upper GI bleed Status: Resolved Plan: GIB noted by dropping H/H, large bloody BM on 12/18. EGD 12/18 showed bleeding peptic ulcers, now s/p cauterization. H/H stable - Supervising Appraiser consulted, appreciate recommendations - CXR today AM showing mild L base atelectasis/infiltrate - Extubation today PM if respiratory status improves - EZPAP ordered for after extubation - Add CPT for after extubation as well - GI consulted, appreciate recommendations - S/p EGD with cautery of peptic ulcers; per GI 30-40% chance of re-bleeding - PPI = 40 mg Protonix IV BID - S/p 6 units PRBC, 2 units FFP - Palliative care consulted, appreciate assistance - Alternative code status = re-intubation okay, no chest compressions or shock, ACLS drugs okay - Would qualify for hospice given advanced age and medical comorbidities, will be ongoing discussion with family - Nutrition consult for dietary recommendations, currently getting tube feedings - Speech therapy to evaluate swallow function for possible progression of diet once more stable - Resumed aspirin, holding Plavix (3) Urinary tract infection Status: Resolved Plan: UA with leuk esterase and bacteria (catheterized sample). Leukocytosis but no fevers. UCx showing contaminant (50-100k mixed GPC). - s/p Levaquin dosed renally (500 mg Q48H), s/p coverage of 5 days with fluoroquinolone (cipro day 1, Levaquin x2 doses with each dose covering 48 hours ) (4) Altered mental status Status: Resolved Plan: Presented with altered mental status due to UTI prior to development of GIB. S/p treatment with Levaquin. Currently on Zosyn as above for leukocytosis with unclear etiology. Mental status improving post-extubation. EKG without tachycardia, ST-T wave changes; AFib with normal HR EEG showing no evidence of seizure disorder Troponins/EKG reassuring ECHO done, EF of 55 to 60% UCx 50-100k CFU/mL mixed GPC - Has been getting Tylenol 1 g IV Q6H for pain, on discharge can consider scheduling 650 mg PO every 6-8 hours - Antibiotics as above for leukocytosis - Delirium prevention: sunlight, no sleeping during the day, hold sedating medications (5) CHF, chronic Status: Chronic Plan: EF 55-60%, no signs of pulmonary edema on exam - Continue home beta rock (6) ESRD (end stage renal disease) on dialysis Status: Chronic Plan: Creatinine at baseline. Hemodialysis on a Sunday, , Sunday schedule. - Nephrology on board, appreciate recs - Continue phosphate binder, Ca, vitamin D - Continue outpatient dialysis - Renally dose medicines, avoid nephrotoxic agents (7) Anemia of renal disease Status: Chronic Plan: Anemia of chronic disease Serum iron 22 TIBC 150 % saturation ~15 - Nephrology consulted, appreciate recs - Venofer as ordered by nephrology (daily) (8) Sacral decubitus ulcer Status: Chronic Plan: Stable from previous descriptions in outpatient setting Wound culture obtained by [facility] due to leukocytosis - F/u wound culture - Consult wound nurse, appreciate recs - Rotate patient every 2 hours - Santyl dressing changes daily on sacral ulcer, not on other ulcers - On discharge, continue treatment of wounds per patient's wound care physician (9) Essential hypertension Status: Chronic Plan: Borderline low blood pressures - Holding Coreg (10) Coronary artery disease Status: Chronic Plan: S/p CABG - Resumed aspirin - Holding plavix - Continue statin (11) History of right hip hemiarthroplasty Status: Chronic Plan: No abnormalities on X-ray - Pain as above (12) Paroxysmal atrial fibrillation Status: Chronic Plan: Had been on Coumadin previously, but due to recent bleed requiring hospital visit this was discontinued. - Continue rate control with beta rock - Resumed aspirin - Holding Plavix (13) Dementia Status: Chronic Plan: Dementia, at high risk for delirium - Delirium precautions (14) FEN/PPX Status: Acute Plan: Fluids: use with caution Elecs: Monitor and replete PRN Nutrition: Pureed diet, thickened liquids DVT: Held due to GIB dw Dr. La (Kade Tyler MD R1) Problem Qualifiers (1) Urinary tract infection: Qualified Code: N30.00 - Acute cystitis without hematuria (2) Altered mental status: Qualified Code: R41.0 - Delirium (3) Dementia: Qualified Code: G30.1 - Late onset Alzheimer's disease without behavioral disturbance Kade Tyler MD R1 Dec 25, 2016 10:53 Helen La MD Dec 25, 2016 14:25
--- NOTE | 2016-12-25 12:08 | HHI.HCPN ---
Reason for visit a. To assist with evaluation and management of symptoms including: dyspnea , encephalopathy, agitation b. To assist medical decision maker(s) with: better understanding of current medical conditions; weighing benefits/burdens of medical treatment options; making medical treatment decisions. . Subjective/Interval History Patient seen today to follow-up on respiratory status, comfort, goals. She had been extubated several days ago, tolerating nasal cannula. However yesterday she had increasing respiratory difficulty, worsening CXR with white out of left side required bronchoscopy and intubation. CXR today improved as compared to yesterday, still indicating atelectasis mild congestion left lung. Has been weaned off of sedation, for CPAP trials today, possible extubation in the next day or so. Low FiO2 requirements 2035 percent. No tachypnea or respiratory distress reported. WBC continues to be elevated 20. H&H stable 10.8/32.5 no active GI bleeding reported. Patient seen in room, dual visit with Katerina MAE at bedside. Patient is lethargic, minimally responsive to exam. Appears comfortable. No longer on sedation. Dtr at bedside. Explore current intubation status, today's diagnostics. Explore overall prognosis, that the patient would still probably remain high risk for Recurrent pulmonary issues. Again explore with daughter recent trajectory of patient. Review CODE STATUS, she indicates that upon prior discussions with the patient patient indicated that she would want to at least try again, and that son and daughter (who are code healthcare surrogate's ) are supportive of this if this is the patient's wishes. Daughter does detail study trajectory of decline, she is worried that patient will continue to have this decline, she is open to ongoing conversation regarding goals of care as clinical course evolves. She is hopeful patient can continue to to provide some input regarding her goals. All questions answered. Palliative contact information provided. . Advance Directives Living Will: Never completed Health Care Surrogate: Never completed Durable Power of Sewer Repairer: Copy in medical record Advance Directive Specifics Date completed: Health care POA form completed 09/08/2015. . Health Care Surrogate(s): Health care POA form lists : Brandy Long Small (daughter) and Cristóbal Richey ( son) to serve together as health care surrogates. Documented care wishes: There is no written documentation of health care goals/preferences. . Objective Vital Signs Date Time Temp Pulse Resp B/P Pulse Ox O2 Delivery O2 Flow Rate FiO2 12/25/16 11:27 100 30 12/25/16 11:21 30 12/25/16 11:21 100 30 12/25/16 10:45 30 12/25/16 08:28 100 28 12/25/16 08:00 30 12/25/16 06:00 93 12/25/16 04:08 100 35 12/25/16 04:00 98.5 101 14 102/58 97 12/25/16 04:00 28 12/25/16 04:00 97 12/25/16 02:00 98 12/25/16 01:15 100 35 12/25/16 00:00 40 12/25/16 00:00 98.4 101 15 102/58 100 12/25/16 00:00 101 12/24/16 22:25 100 40 12/24/16 22:00 101 12/24/16 20:03 100 40 12/24/16 20:00 98.2 104 15 97/58 100 12/24/16 20:00 104 12/24/16 20:00 40 12/24/16 18:00 104 12/24/16 16:00 105 12/24/16 16:00 102 12/24/16 16:00 40 12/24/16 16:00 98.3 107 15 96/58 100 12/24/16 14:46 96 50 12/24/16 14:00 110 12/24/16 13:30 100 100 Intake & Output 12/25/16 12/25/16 07:00 19:00 Intake Total 750 ml Output Total 0 ml 0 ml Balance 750 ml 0 ml IV Total 690 ml Other 60 ml Output Urine Total 0 ml Tube Feeding Residual Discard 0 ml 0 ml # Bowel Movements 1 Physical Exam CONSTITUTIONAL/GENERAL: This is a pale, frail appearing elderly patient in an MICU bed. Lethargic, minimally interacts with examiner TUBES/LINES/DRAINS: Ariza catheter; peripheral IVs; SKIN: No jaundice, rashes, or lesions. Multiple areas of ecchymosis to extremities, many skin tears on lower extremities. Skin temperature appropriate. CARDIOVASCULAR: Regular rate and rhythm, no murmur. RESPIRATORY/CHEST: Symmetric, unlabored respirations on mechanical vent. Faint scattered rhonchi. Breath sounds equal bilaterally. GASTROINTESTINAL: Abdomen soft, no apparent tenderness, nondistended. No masses. No guarding. Bowel sounds present. MUSCULOSKELETAL: Extremities thin, ++muscle atrophy . Multiple areas of ecchymosis and skin tears to all 4 extremities. NEUROLOGICAL: Lethargic, STIR some to visit vigorous stimuli. Slight eye opening. Does not keep eyes open. Very slight movement of toes to command. Very slight hand movement with command to grasp. PSYCHIATRIC: No obvious depression/anxiety/hallucinations-limited assessment due to lethargy/clinical condition. . . Diagnostic Tests Laboratory Laboratory Tests Test 12/23/16 12/24/16 12/24/16 12/24/16 13:32 10:32 13:45 15:25 White Blood Count 19.8 TH/MM3 23.2 TH/MM3 (4.0-11.0) (4.0-11.0) Red Blood Count 3.48 MIL/MM3 3.55 MIL/MM3 (4.00-5.30) (4.00-5.30) Hemoglobin 10.5 GM/DL 10.7 GM/DL (11.6-15.3) (11.6-15.3) Hematocrit 32.6 % 32.6 % (35.0-46.0) (35.0-46.0) Mean Corpuscular Volume 93.8 FL 91.7 FL (80.0-100.0) (80.0-100.0) Mean Corpuscular Hemoglobin 30.1 PG 30.1 PG (27.0-34.0) (27.0-34.0) Mean Corpuscular Hemoglobin 32.1 % 32.8 % Concent (32.0-36.0) (32.0-36.0) Red Cell Distribution Width 17.0 % 16.4 % (11.6-17.2) (11.6-17.2) Platelet Count 201 TH/MM3 283 TH/MM3 (150-450) (150-450) Mean Platelet Volume 6.9 FL 6.8 FL (7.0-11.0) (7.0-11.0) Neutrophils (%) (Auto) 91.7 % 86.9 % (16.0-70.0) (16.0-70.0) Lymphocytes (%) (Auto) 2.9 % 4.3 % (9.0-44.0) (9.0-44.0) Monocytes (%) (Auto) 5.0 % (0.0-8.0) 7.9 % (0.0-8.0) Eosinophils (%) (Auto) 0.3 % (0.0-4.0) 0.6 % (0.0-4.0) Basophils (%) (Auto) 0.1 % (0.0-2.0) 0.3 % (0.0-2.0) Neutrophils # (Auto) 18.2 TH/MM3 20.2 TH/MM3 (1.8-7.7) (1.8-7.7) Lymphocytes # (Auto) 0.6 TH/MM3 1.0 TH/MM3 (1.0-4.8) (1.0-4.8) Monocytes # (Auto) 1.0 TH/MM3 1.8 TH/MM3 (0-0.9) (0-0.9) Eosinophils # (Auto) 0.1 TH/MM3 0.1 TH/MM3 (0-0.4) (0-0.4) Basophils # (Auto) 0.0 TH/MM3 0.1 TH/MM3 (0-0.2) (0-0.2) CBC Comment AUTO DIFF AUTO DIFF Differential Comment AUTO DIFF FINAL DIFF CONFIRMED MANUAL Sodium Level 134 MEQ/L 135 MEQ/L (136-145) (136-145) Potassium Level 4.2 MEQ/L 3.9 MEQ/L (3.5-5.1) (3.5-5.1) Chloride Level 96 MEQ/L 94 MEQ/L (98-107) (98-107) Carbon Dioxide Level 29.4 MEQ/L 30.1 MEQ/L (21.0-32.0) (21.0-32.0) Anion Gap 9 MEQ/L (5-15) 11 MEQ/L (5-15) Blood Urea Nitrogen 15 MG/DL (7-18) 19 MG/DL (7-18) Creatinine 2.26 MG/DL 2.89 MG/DL (0.50-1.00) (0.50-1.00) Estimat Glomerular Filtration 20 ML/MIN (>89) 15 ML/MIN (>89) Rate Random Glucose 118 MG/DL 103 MG/DL (74-106) (74-106) Calcium Level 8.6 MG/DL 8.5 MG/DL (8.5-10.1) (8.5-10.1) Total Bilirubin 1.0 MG/DL 0.9 MG/DL (0.2-1.0) (0.2-1.0) Aspartate Amino Transf 19 U/L (15-37) 18 U/L (15-37) (AST/SGOT) Alanine Aminotransferase 10 U/L (10-53) 11 U/L (10-53) (ALT/SGPT) Alkaline Phosphatase 122 U/L 132 U/L (45-117) (45-117) Total Protein 6.6 GM/DL 6.7 GM/DL (6.4-8.2) (6.4-8.2) Albumin 2.8 GM/DL 2.6 GM/DL (3.4-5.0) (3.4-5.0) Differential Total Cells 100 Counted Neutrophils % (Manual) 75 % (16-70) Lymphocytes % 6 % (9-44) Monocytes % 14 % (0-8) Neutrophils # (Manual) 18.6 TH/MM3 (1.8-7.7) Metamyelocytes 1 % (0-1) Myelocytes 4 % (0-0) Platelet Estimate NORMAL (NORMAL) Platelet Morphology Comment NORMAL (NORMAL) Red Cell Morphology Comment NORMAL (NORMAL) Phosphorus Level 1.0 MG/DL (2.5-4.9) Magnesium Level 1.6 MG/DL (1.5-2.5) Bronchoalveolar Lavage WBC 1625 /MM3 Bronchoalveolar Lavage RBC 03753 /MM3 Bronchoalveolar Lavage 99 % Neutrophils Bronchoalveolar Lavage 0 % Lymphocytes Bronchoalveolar Lavage 1 % Eosinophils Lavage Fluid Total Volume 22.0 ML Lavage Fluid Total WBC Count 35.8 MILLION (4.7-7.1) Blood Gas Puncture Site LT BRACHIAL Blood Gas Patient Temperature 98.6 Blood Gas HCO3 26 mmol/L (22-26) Blood Gas Base Excess 3.8 mmol/L (-2-2) Blood Gas Oxygen Saturation 97 % (90-100) Arterial Blood pH 7.56 (7.380-7.420) Arterial Blood Partial 30 mmHg (38-42) Pressure CO2 Arterial Blood Partial 219 mmHg Pressure O2 (61-120) Arterial Blood Oxygen Content 14.0 Vol % (12.0-20.0) Arterial Blood 2.1 % (0-4) Carboxyhemoglobin Arterial Blood Methemoglobin 1.1 % (0-2) Blood Gas Hemoglobin 9.9 G/DL (12.0-16.0) Oxygen Delivery Device VENTILATOR Blood Gas Ventilator Setting A/C 450/16/8PEEP Blood Gas Inspired Oxygen 50 % Test 12/25/16 04:45 White Blood Count 20.1 TH/MM3 (4.0-11.0) Red Blood Count 3.58 MIL/MM3 (4.00-5.30) Hemoglobin 10.8 GM/DL (11.6-15.3) Hematocrit 32.5 % (35.0-46.0) Mean Corpuscular Volume 90.8 FL (80.0-100.0) Mean Corpuscular Hemoglobin 30.3 PG (27.0-34.0) Mean Corpuscular Hemoglobin 33.4 % Concent (32.0-36.0) Red Cell Distribution Width 16.4 % (11.6-17.2) Platelet Count 236 TH/MM3 (150-450) Mean Platelet Volume 7.1 FL (7.0-11.0) Neutrophils (%) (Auto) % (16.0-70.0) Lymphocytes (%) (Auto) % (9.0-44.0) Monocytes (%) (Auto) % (0.0-8.0) Eosinophils (%) (Auto) % (0.0-4.0) Basophils (%) (Auto) % (0.0-2.0) Neutrophils # (Auto) TH/MM3 (1.8-7.7) Lymphocytes # (Auto) TH/MM3 (1.0-4.8) Monocytes # (Auto) TH/MM3 (0-0.9) Eosinophils # (Auto) TH/MM3 (0-0.4) Basophils # (Auto) TH/MM3 (0-0.2) CBC Comment AUTO DIFF Differential Total Cells 100 Counted Neutrophils % (Manual) 72 % (16-70) Band Neutrophils % 1 % (0-6) Lymphocytes % 11 % (9-44) Monocytes % 9 % (0-8) Eosinophils % 4 % (0-4) Neutrophils # (Manual) 15.3 TH/MM3 (1.8-7.7) Metamyelocytes 2 % (0-1) Myelocytes 1 % (0-0) Differential Comment FINAL DIFF MANUAL Platelet Estimate NORMAL (NORMAL) Platelet Morphology Comment NORMAL (NORMAL) Sodium Level 136 MEQ/L (136-145) Potassium Level 4.5 MEQ/L (3.5-5.1) Chloride Level 96 MEQ/L (98-107) Carbon Dioxide Level 29.6 MEQ/L (21.0-32.0) Anion Gap 10 MEQ/L (5-15) Blood Urea Nitrogen 20 MG/DL (7-18) Creatinine 3.37 MG/DL (0.50-1.00) Estimat Glomerular Filtration 13 ML/MIN (>89) Rate Random Glucose 96 MG/DL (74-106) Calcium Level 7.9 MG/DL (8.5-10.1) Phosphorus Level 1.1 MG/DL (2.5-4.9) Magnesium Level 1.6 MG/DL (1.5-2.5) Total Bilirubin 0.7 MG/DL (0.2-1.0) Aspartate Amino Transf 20 U/L (15-37) (AST/SGOT) Alanine Aminotransferase 9 U/L (10-53) (ALT/SGPT) Alkaline Phosphatase 108 U/L (45-117) Total Protein 5.2 GM/DL (6.4-8.2) Albumin 2.0 GM/DL (3.4-5.0) Result Diagram: 12/25/16 0445 12/25/16 0445 Microbiology Microbiology Date/Time Procedure Status Source Growth 12/24/16 13:45 Gram Stain - Final Resulted Bronchial Washings Left Upper Lobe 12/24/16 13:45 Bronchial Culture Resulted Bronchial Washings Left Upper Lobe Pending 12/24/16 13:45 Acid Fast Stain Received Bronchial Washings Left Upper Lobe Pending 12/24/16 13:45 Mycobacterial Culture Received Bronchial Washings Left Upper Lobe Pending 12/24/16 13:45 Fungal Smear - Final Resulted Bronchial Washings Left Upper Lobe NO FUNGAL ELEMENTS SEEN. 12/24/16 13:45 Fungal Culture Resulted Bronchial Washings Left Upper Lobe Pending Imaging Last Impressions Chest X-Ray 12/25/16 0000 Signed Impressions: Service Date/Time: Sunday, December 25, 2016 08:41 - CONCLUSION: Mild left lung base atelectasis and/or infiltrate is seen and mild case of pulmonary venous congestion is suspected. Rigoberto Valencia MD Upper Extremity Ultrasound 12/24/16 0000 Signed Impressions: Service Date/Time: Saturday, December 24, 2016 14:41 - CONCLUSION: Normal examination. Benjamin Oquendo MD Chest CT 12/24/16 0000 Signed Impressions: Service Date/Time: Saturday, December 24, 2016 12:00 - CONCLUSION: The left main bronchus is filled with soft tissue density could be secretions with mucous plugging versus neoplastic process and the entire left lung is consolidated/collapsed with a tiny left pleural effusion. Rigoberto Valencia MD Hip and Pelvis X-Ray 12/15/16 0000 Signed Impressions: Service Date/Time: Thursday, December 15, 2016 05:00 - CONCLUSION: Intact total hip prosthesis for technique and extensive stool and osteopenia as above. Rigoberto Valencia MD Head CT 12/15/16 0000 Signed Impressions: Service Date/Time: Thursday, December 15, 2016 04:53 - CONCLUSION: Chronic and small vessel ischemic changes without any evidence for acute hemorrhage or mass effect. Rigoberto Valencia MD Cervical Spine CT 12/15/16 0000 Signed Impressions: Service Date/Time: Thursday, December 15, 2016 04:53 - CONCLUSION: Neural foramina compromise right C3-4, right C5-C6 and bilateral lateral recess compromise C5- 6. Rigoberto Valencia MD Procedures * 12/24/16repeat bronchoscopy, reintubation * Intubation/mechanical ventilation * EGD with cauterization of gastric ulcer * Bronchoscopy 12/21/16 * Hemodialysis. . . Assessment and Plan Disease Oriented Problem List: (1) Acute upper GI bleed Comment: EGD of 12/18/16 revealed a gastric ulcer. Duodenitis without bleeding was also noted. . (2) Coronary artery disease Comment: Patient has had bypass surgery. (3) Essential hypertension (4) Paroxysmal atrial fibrillation (5) Hypothyroidism (acquired) (6) Sacral decubitus ulcer (7) ESRD (end stage renal disease) on dialysis Comment: Patient has been receiving hemodialysis for approximately 5 years (8) Altered mental status (9) Dementia Comment: Patient developed cognitive challenges following her second stroke. This seems to be more with reasoning and executive function than it is with short-term memory. . 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 First stroke --> good resolution. 2nd Stroke left her with problems with swallowing, speech, and executive function. . 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 . Symptom Scale: (1) Pain 0-10 Scale: Unable to quantify Comment: Patient with many years of lower extremity pain of uncertain etiology . (2) Dyspnea 0-10 Scale: Unable to quantify Comment: Repeat bronchoscopy on 12/25/16 . . (3) Encephalopathy 0-10 Scale: Unable to quantify (patient has underlying cognitive challenges. These have been exacerbated by what is either a metabolic encephalopathy or a multifactorial delirium.) Comment: . Pertinent Non-Medical Issues Psychosocial: Patient has a sonCristóbal-- who lives locally. DaughterBrandy lives in [place]. Spiritual: Patient grew up in a fundamentalist tradition. Daughter reports she became bitter following the premature of her . Legal: No known living will. There is a completed health care power of director workforce management document that gives: Health care surrogate designation to both of her children. Ethical issues impacting care: Patient is incapacitated to make her own medical decisions. It is not clear if she will regain capacity to do so. . Important Contacts * Cristóbal Richey (son and health co-health care POA) [phone] * Brandy Phillips (daughter and co-health care surrogate) . Prognosis Ms. Richey has not done well since her heart surgery -- CABG and tricuspid valve replacement-- several years ago. She has since suffered 2 strokes. Though she had some improvement after the first stroke. The second stroke left her with some swallowing issues, speech issues and some cognitive deficits. She has been frustrated with these deficits and has withdrawn socially. She is primarily wheelchair and bedbound. Daughter reports that her weight has fallen from a normal weight of approximately 160 pounds down to approximately 115 pounds. She has been receiving hemodialysis for approximately 5 years -- hemodialysis began shortly after her surgery which apparently also caused renal insufficiency. She suffered a hip fracture requiring repair about a month ago, and is now back in the hospital with respiratory failure, urinary tract infection, and a large gastrointestinal hemorrhage. Given the above, and her advanced age her prognosis is not great. It now appears that the patient will survive the intensive care unit, and live to hospital discharge. However, given her trajectory leading up to this hospitalization and given her advanced age, significant relapse is likely. Life expectancy is probably well under a year. Whenever the patient or her family feel they want to "transition to comfort measures, she would be eligible for hospice services. . Code Status: Alternative Code (No chest compressions or shock; Yes intubate and ACLS drugs) Plan == Code Status: ALTERNATE CODE palliative previously Spoke to son and daughter together. They want patient re-intubated if she is extubated and develops respiratory decompensation. Therefore , code status is ALTERNATE CODE. No shock / No chest compressions but Yes intubation / Yes ACLS drugs. 12/25/16revisit this with daughter she indicates the patient has wanted to try intubation again and affirms patient should remain intubation only. == Decision making: Son and daughter are joint health care surrogates. == Goals: Son and daughter continue to want aggressive care short of the resuscitation limits noted above. They will re-evaluate as the clinical course evolves. They know the patient would not want to be dependent on a ventilator for the rest of her life and would not want to be sustained in a permanent vegetative state. Most recently the patient has indicated to the daughter that she wants to keep trying. == Pain: Patient has long-standing lower extremity pain of uncertain etiology. She also may be uncomfortable from her prolonged bedbound status; and vascular access lines. Patient recently weaned off of Diprivan sedation. Still very lethargic to my exam. Nursing reports no signs of pain. Had recently been on fentanyl for pain here during hospital course though currently they are trying to minimize any sedatives for possible extubation. Has prn fentanyl 50mcgs-- last dose 1am 12/24 == Dyspnea: Patient's dyspnea is currently being controlled with mech vent, Extubated 12/22/16. repeat bronch and intubation 12/25. Some improvement in CXR today, CPAP trials -- possible extubation. No further recommendations at this time. Remains at risk for ongoing respiratory, locations. == Encephalopathy: Patient has some baseline cognitive deficits, particularly with executive function since her second stroke. She is currently lethargic though recently had been following commands and reported to be fairly appropriate following extubation == Palliative care will continue to follow during hospital course as condition evolves, to assist patient/decision-maker with understanding of medical conditions, weighing benefits/burdens of treatment options, for clarification of goals of treatment. Additionally will assist with any symptoms of palliative concern . Time Spent >50% Counseling/Coord of Care: Yes (discussed with primary nurse, critical care ) Attestation To help prompt me to consider important information that might be impacting today's encounter and assessment, information from prior notes written by myself or my colleagues may have been "brought forward" into today's note. My signature on this note, however, is an attestation that I personally performed the exam, history, and/or decision-making noted today, and, unless otherwise indicated, the interactions with patient, family, and staff as well as the review of records all occurred today. I also attest that the listed assessment and stated plan reflect my best clinical judgment today based on the combination of historical information, prior notes, and today's exam/ interactions. When time spent is documented, it refers only to time spent today by the signer, or if indicated, combined time spent today by collaborating physician/nurse practitioner. Cecilia Keys Dec 25, 2016 12:08
--- NOTE | 2016-12-25 12:35 | HHI.NPPN ---
Subjective History of Present Illness The patient is am 89 yo [place] female who is known to our services for ESRD on HD. She was brought to this facility as she was found on the floor of her NH. She is altered at the present, so no other information can be gathered. She has multiple abrasions on her LEs and her mouth is covered in blood. Uncertain if she bit her tongue. Imaging and labs reviewed. Appears she may have a UTI. Last HD yesterday---on TTS schedule. Interval History noted patient has had another bronchoscopy and is back on a ventilator Review of Systems General General Remarks Not obtainable today Objective Data Data 12/24/16 12/25/16 19:00 07:00 Intake Total 492 ml 750 ml Output Total 0 ml 0 ml Balance 492 ml 750 ml IV Total 492 ml 690 ml Other 60 ml Output Urine Total 0 ml 0 ml Tube Feeding Residual Discard 0 ml # Bowel Movements 1 1 Vital Signs Date Time Temp Pulse Resp B/P Pulse Ox O2 Delivery O2 Flow Rate FiO2 12/25/16 12:00 98.4 108 31 132/71 97 12/25/16 12:00 30 12/25/16 12:00 108 12/25/16 11:27 100 30 12/25/16 11:21 30 12/25/16 11:21 100 30 12/25/16 10:45 30 12/25/16 10:00 133 12/25/16 08:28 100 28 12/25/16 08:00 87 12/25/16 08:00 97.9 87 15 81/52 100 12/25/16 08:00 30 12/25/16 06:00 93 12/25/16 04:08 100 35 12/25/16 04:00 98.5 101 14 102/58 97 12/25/16 04:00 28 12/25/16 04:00 97 12/25/16 02:00 98 12/25/16 01:15 100 35 12/25/16 00:00 40 12/25/16 00:00 98.4 101 15 102/58 100 12/25/16 00:00 101 12/24/16 22:25 100 40 12/24/16 22:00 101 12/24/16 20:03 100 40 12/24/16 20:00 98.2 104 15 97/58 100 12/24/16 20:00 104 12/24/16 20:00 40 12/24/16 18:00 104 12/24/16 16:00 105 12/24/16 16:00 102 12/24/16 16:00 40 12/24/16 16:00 98.3 107 15 96/58 100 12/24/16 14:46 96 50 12/24/16 14:00 110 12/24/16 13:30 100 100 -: 12/25/16 0445 12/25/16 0445 Microbiology 12/24/16 Gram Stain - Final, Resulted 12/24/16 Bronchial Culture, Resulted Pending 12/24/16 Acid Fast Stain, Received Pending 12/24/16 Mycobacterial Culture, Received Pending 12/24/16 Fungal Smear - Final, Resulted NO FUNGAL ELEMENTS SEEN. 12/24/16 Fungal Culture, Resulted Pending Physical Exam General Appearance: Malnourished Appearance Remarks Very frail in appearance. Wasting of musculature of all limbs. Eyes Eye Exam: Sclera White Neck Neck Exam: Trachea Midline Pulmonary Resp Exam: Clear Bilaterally, Breath Sounds Equal, No Distress Cardiology CV Exam: Regular Gastrointestinal/Abdomen GI Exam: Soft, Non-Tender Integumentary Skin Exam: Clear, Warm Extremeties Extremities Exam: Moderate Edema (all extremities.) Neurologic Neuro Exam: Moving All Extremities, Sedated Assessment/Plan Problem List: (1) ESRD (end stage renal disease) on dialysis Plan: Patient will have dialysis again today for further fluid removal. I advised the daughter that even if she is able to get through this acute illness and she will likely be severely debilitated with ongoing problems in the future. Continue dialysis as long as family desires. My opinion is that hospice will have to be considered without dialysis at some point in the not too distant future when it no longer appears to be contributing significantly to her quality of life for her remaining time as discussed with the family previously prior to this admission.. Medications should be adjusted for the patient's ESRD. Avoid gadolinium (2) Altered mental status (3) Urinary tract infection Plan: Abx deferred to primary (4) Failure to thrive in adult Plan: Ongoing these last several months. Even if the patient improves enough to be discharged [id number] and overall clinical condition will likely be very poor given severe debilitation, dementia, medical comorbidities and advanced age.. Patient has been requesting to come off the dialysis machine early as an outpatient during her treatment but still indicated recently that she wanted to continue dialysis. She was advised however by being noncompliant with her dialysis treatments her overall prognosis is significantly reduced. (5) Anemia of renal disease Plan: Continue Epogen. Problem Qualifiers (1) Altered mental status: Qualified Code: R41.0 - Delirium (2) Urinary tract infection: Qualified Code: N30.00 - Acute cystitis without hematuria Pio Morton MD Dec 25, 2016 12:35
[2016-12-25 14:31] LABS: BLOOD GAS BASE EXCESS 0.7 mmol/L (-2-2); BLOOD GAS CARBOXYHEMOGLOBIN 1.8 % (0-4); BLOOD GAS HCO3 25 mmol/L (22-26); BLOOD GAS METHEMOGLOBIN 1.3 % (0-2); BLOOD GAS O2 HGB SATURATION 96 % (90-100); BLOOD GAS OXYGEN CONTENT 16.3 Vol % (12.0-20.0); BLOOD GAS PCO2 39 mmHg (38-42); BLOOD GAS PO2 120 mmHg (61-120); CRITICAL VALUE NO; DRAW SITE LT RADIAL; FIO2 35 %; NUMBER OF ARTERIAL PUNCTURES 2; OXYGEN DEVICE VENTILATOR; STAT NO; TEMP CORR TO 98.6; ULNAR PULSE Y; VENT SETTINGS CPAP/PS10/PEEP5
[2016-12-25] MEDS: ALBUMIN HUMAN 25% 25 GM/100 ML BAGP IV PRN ×2 (15:49→15:50)
[2016-12-26] VITALS (14 sets, daily range): BP systolic 101–123; BP diastolic 55–65; PULSE 93–120; RESP 20–35; TEMP 97.6–98.5; O2SAT 98–100
[2016-12-26] MEDS: RESP: ALBUTEROL 2.5 MG/IPRATROPIUM 0.5 MG NEB (SCH) NEB ×7 (00:27→23:18)
[2016-12-26] MEDS: RESP: SODIUM CHLORIDE 3% 4 ML NEB NEB SCH ×7 (00:28→23:18)
[2016-12-26] MEDS: ACETAMINOPHEN 325 MG TAB PO PRN ×2 (00:51→20:21)
[2016-12-26 04:47] LABS: BASOPHIL % 0.2 % (0.0-2.0); EOSINOPHIL # 0.2 TH/MM3 (0-0.4); EOSINOPHIL % 0.9 % (0.0-4.0); LYMPH % 4.1 % (9.0-44.0); LYMPHOCYTE # 0.8 TH/MM3 (1.0-4.8); MEAN CELL VOLUME 91.4 FL (80.0-100.0); MEAN CORPUSCULAR HEMOGLOBIN 29.9 PG (27.0-34.0); MEAN CORPUSCULAR HGB CONC 32.7 % (32.0-36.0); MONO % 6.6 % (0.0-8.0); NEUT % 88.2 % (16.0-70.0); PLATELET COUNT 303 TH/MM3 (150-450); RED BLOOD COUNT 3.18 MIL/MM3 (4.00-5.30); RED CELL DISTRIBUTION WIDTH 16.1 % (11.6-17.2); WHITE BLOOD COUNT 20.4 TH/MM3 (4.0-11.0)
[2016-12-26 05:05] LABS: HEMO FLAGS AUTO DIFF
[2016-12-26 05:23] LABS: BICARBONATE 32.4 MEQ/L (21.0-32.0); POTASSIUM 3.2 MEQ/L (3.5-5.1)
[2016-12-26] MEDS: guaiFENesin SOLUTION 200 MG/10 ML CUP PO SCH ×3 (06:06→20:23)
[2016-12-26] MEDS: LEVOTHYROXINE SODIUM 112 MCG TAB PO SCH (06:06)
[2016-12-26] MEDS: PIPERACIL-TAZO 2.25 GM PREMIX 50 ML IV SCH ×3 (06:06→22:44)
[2016-12-26] MEDS: CHLORHEXIDINE 0.12% (ORAL KIT) 15 ML CUP MT SCH ×4 (07:14→20:22)
[2016-12-26] MEDS: NUTRITIONAL SUPPLEMENTS PO SCH (07:15)
[2016-12-26 08:02] LABS: BANDS 2 % (0-6); BASOPHILS 1 % (0-2); EOSINOPHILS 1 % (0-4); MYELOCYTES 3 % (0-0); NEUTROPHIL # MANUAL DIFF 17.7 TH/MM3 (1.8-7.7); POLYS (SEG NEUTROPHILS) 82 % (16-70); WBC DIFF SAMPLE 100
[2016-12-26 08:04] LABS: PLATELET ESTIMATE SMEAR NORMAL (NORMAL); PLATELET MORPHOLOGY NORMAL (NORMAL); SCAN/DIFF FINAL DIFF MANUAL
--- NOTE | 2016-12-26 08:53 | RADRPT ---
EXAM DATE/TIME: 12/26/2016 07:56 [facility] COMPARISON: CHEST SINGLE AP, December 25, 2016, 8:41. INDICATIONS : Atelectasis. MEDICAL HISTORY : Hypercholesterolemia. Stroke. Congestive heart failure. Glaucoma. SURGICAL HISTORY : Left lobectomy. Tricuspid valve replacement. Lumbar fusion. ENCOUNTER: Subsequent ACUITY: 1 week PAIN SCORE: Non-responsive. LOCATION: Bilateral chest FINDINGS: The endotracheal tube has been removed. The nasogastric tube has its tip in the stomach. A left int ernal jugular central line is stable with its tip overlying the expected region of the superior vena cava. Median sternotomy wires are noted status post cardiac surgery. Vascular stent is noted throug hout the right upper extremity and is unchanged. Patchy opacities are noted within the left mid and lower lung field and right lung base consistent with possible pneumonia. Clinical correlation is rec ommended. Tiny bilateral pleural effusions are noted. Degenerative changes and scoliosis of the tho racic spine are noted. CONCLUSION: 1. Patchy opacities within the left mid and lower lung amaral and right lung base consistent with po ssible pneumonia. Clinical correlation is recommended. 2. Tiny bilateral pleural effusions. 3. Degenerative changes and scoliosis of the thoracic spine. Morgan Box MD on December 26, 2016 at 8:19 Board Certified Radiologist. This report was verified electronically.
[2016-12-26] MEDS: COLLAGENASE OINT 30 GM TUBE TOPICAL SCH (09:00)
[2016-12-26] MEDS: POLYETHYLENE GLYCOL 17 GM PKG PO SCH (09:00)
--- NOTE | 2016-12-26 10:16 | HHI.NPPN ---
Subjective History of Present Illness The patient is am 89 yo [place] female who is known to our services for ESRD on HD. She was brought to this facility as she was found on the floor of her NH. She is altered at the present, so no other information can be gathered. She has multiple abrasions on her LEs and her mouth is covered in blood. Uncertain if she bit her tongue. Imaging and labs reviewed. Appears she may have a UTI. Last HD yesterday---on TTS schedule. Interval History Pt extubated. Seen during HD Had extra session yesterday for extra fluid removal. (Gaviota Nicholson) Review of Systems General General Remarks Not obtainable today (Gaviota Nicholson) Objective Data Data 12/25/16 12/26/16 19:00 07:00 Intake Total 1050 ml 1058 ml Output Total 3000 ml 0 ml Balance -1950 ml 1058 ml IV Total 548 ml 557 ml Tube Feeding 252 ml 441 ml Other 250 ml 60 ml Output Urine Total 0 ml 0 ml Tube Feeding Residual Discard 0 ml 0 ml Hemodialysis 3000 ml # Bowel Movements 3 0 Vital Signs Date Time Temp Pulse Resp B/P Pulse Ox O2 Delivery O2 Flow Rate FiO2 12/26/16 07:54 100 Nasal Cannula 3.00 12/26/16 06:00 108 12/26/16 04:00 109 12/26/16 04:00 97.8 109 20 102/61 100 12/26/16 02:00 93 12/26/16 01:52 20 12/26/16 00:00 97.7 110 22 111/65 100 12/26/16 00:00 110 12/25/16 22:00 108 12/25/16 20:49 100 Nasal Cannula 4.00 12/25/16 20:00 109 12/25/16 20:00 98.3 109 20 111/58 100 12/25/16 18:00 109 12/25/16 16:00 97.8 110 22 112/56 100 12/25/16 16:00 110 12/25/16 14:00 112 12/25/16 12:35 95 Nasal Cannula 4 12/25/16 12:00 98.4 108 31 132/71 97 12/25/16 12:00 30 12/25/16 12:00 108 12/25/16 11:27 100 30 12/25/16 11:21 30 4/17/17 11:21 100 30 12/25/16 10:45 30 (Gaviota Nicholson) -: 12/26/16 0400 12/26/16 0400 Medication Review Current Medications Medications (Trade) Dose Ordered Sig/Tavares Route Start Time Stop Time Status Last Admin (NS Flush) 2 ml UNSCH PRN IV FLUSH 12/15/16 07:45 12/25/16 09:27 Sodium Chloride 2 ml 2 ml BID IV FLUSH 12/15/16 09:00 12/25/16 20:28 (Levaquin 500 Mg Premix Inj) 100 ml @ 100 mls/hr Q48H IV 12/16/16 08:00 12/24/16 09:56 (Norvasc) 5 mg DAILY PO 12/15/16 09:00 Hold 12/17/16 09:21 (Ecotrin Ec) 81 mg DAILY PO 12/15/16 09:00 12/25/16 09:26 (Dulcolax Supp) 10 mg DAILY PRN RECTAL 12/15/16 08:00 12/17/16 21:47 (Phoslo) 667 mg TID PO 12/15/16 09:00 Hold 12/24/16 17:34 (Coreg) 3.125 mg Q12HR PO 12/15/16 09:00 Hold 12/17/16 21:07 (Plavix) 75 mg DAILY PO 12/15/16 09:00 Hold 12/18/16 08:55 (Lasix) 20 mg DAILY PO 12/15/16 09:00 Hold 12/17/16 09:20 (Xalatan 0.005% Opth Soln) 1 drop HS EACH EYE 12/15/16 21:00 12/25/16 20:27 (Synthroid) 112 mcg DAILY@06 PO 12/15/16 08:09 12/26/16 06:06 (Pravachol) 40 mg DAILY PO 12/15/16 09:00 12/25/16 09:26 (Miralax) 17 gm DAILY PO 12/15/16 09:00 12/24/16 09:00 (Polly-Colace) 2 tab BID PRN PO 12/15/16 08:00 12/25/16 02:52 (Desyrel) 50 mg HS PO 12/15/16 21:00 Hold 12/20/16 20:21 (Nephrocaps) 1 cap DAILY PO 12/15/16 09:00 12/25/16 09:26 (Vitamin D3) 2,000 units DAILY PO 12/15/16 09:00 12/25/16 09:26 Non-Formulary Medication 1 can DAILY PO 12/15/16 09:00 12/26/16 07:15 (Zofran Odt) 4 mg Q8HR PRN PO 12/15/16 08:00 Collagenase 1 applic 1 applic DAILY TOPICAL 12/16/16 09:00 12/25/16 09:00 (NS 1000 ml Inj) 1,000 ml @ 0 mls/hr Q0M PRN IV 12/15/16 16:49 12/21/16 16:22 Heparin Sodium (Porcine) 8000 units 8,000 units UNSCH PRN IVF 12/15/16 17:00 Hold Sodium Chloride 1,000 ml @ 200 mls/hr Q5H PRN IV 12/15/16 16:49 (NS 1000 ml Inj) 1,000 ml @ 0 mls/hr Q0M PRN IV 12/15/16 16:49 (Mannitol Inj) 12.5 gm UNSCH PRN IV 12/15/16 17:00 12/19/16 09:28 (Albumin 25% Inj) 25 gm UNSCH PRN IV 12/15/16 17:00 12/25/16 15:50 (NS Flush) 5 ml UNSCH PRN IV FLUSH 12/15/16 17:00 (Heparin Inj) UNSCH PRN .XX 12/15/16 17:00 (Gentamicin (Dialysis) Inj) 20 mg UNSCH PRN IV 12/15/16 17:00 (Zofran Inj) 4 mg UNSCH PRN IV 12/15/16 17:00 (Tylenol) 650 mg UNSCH PRN PO 12/15/16 17:00 12/26/16 00:51 (Benadryl) 25 mg UNSCH PRN PO 12/15/16 17:00 (Nitrostat Sl) 0.4 mg UNSCH PRN SL 12/15/16 17:00 Hold (Catapres) 0.1 mg UNSCH PRN PO 12/15/16 17:00 Hold (Gelfoam 12 Mm/7 Mm Top) 1 foam UNSCH PRN TOP 12/15/16 17:00 12/23/16 12:30 Miscellaneous Information Patient in critical care unit? Ass... Q361D .XX 12/18/16 21:45 (Peridex 0.12% Liq) 15 ml BID@08,20 MT 12/19/16 08:00 12/25/16 20:27 (fentaNYL INJ) 50 mcg Q1H PRN IV PUSH 12/18/16 23:15 12/24/16 01:13 (Protonix Inj) 40 mg BID IV PUSH 12/19/16 21:00 12/25/16 20:28 Epoetin Adrián 14841 units 10,000 units TuTh IV 12/19/16 12:30 12/23/16 12:30 (Zosyn 2.25 Gm Premix) 50 ml @ 100 mls/hr Q8H IV 12/22/16 13:00 12/26/16 06:06 (Robitussin Liq) 400 mg Q8HR PO 12/23/16 15:45 12/28/16 15:44 12/26/16 06:06 (Peridex 0.12% Liq) 15 ml BID@08,20 MT 12/24/16 20:00 12/25/16 09:29 (NS Flush) DAILY IVF 12/24/16 15:30 12/25/16 09:27 Sodium Chloride UNSCH PRN IVF 12/24/16 15:30 Potassium Chloride 100 ml @ 50 mls/hr Q2H IV 12/26/16 07:30 12/26/16 11:29 (Diflucan 100 Mg Premix Bag) 50 ml @ 50 mls/hr Q24H IV 12/26/16 10:15 UNV (Gaviota Nicholson) Physical Exam General Appearance: No Acute Distress, Malnourished (Gaviota Nicholson) Eyes Eye Exam: Sclera White (Gaviota Nicholson) Neck Neck Exam: Trachea Midline (Gaviota Nicholson) Pulmonary Resp Exam: Clear Bilaterally, Breath Sounds Equal, No Distress (Gaviota Nicholson) Cardiology CV Exam: Regular (Gaviota Nicholson) Gastrointestinal/Abdomen GI Exam: Soft, Non-Tender (Gaviota Nicholson) Integumentary Skin Exam: Clear, Warm (Gaviota Nicholson) Extremeties Extremities Exam: Moderate Edema (improved in legs. Still moderate in RUE and 1+ in bilat feet) (Gaviota Nicholson) Neurologic Neuro Exam: Moving All Extremities, Sedated (Gaviota Nicholson) Assessment/Plan Problem List: (1) ESRD (end stage renal disease) on dialysis Plan: Seen during HD today. Will resume TTS schedule after today K+ repletion ordered I advised the daughter that even if she is able to get through this acute illness and she will likely be severely debilitated with ongoing problems in the future. Continue dialysis as long as family desires. My opinion is that hospice will have to be considered without dialysis at some point in the not too distant future when it no longer appears to be contributing significantly to her quality of life for her remaining time as discussed with the family previously prior to this admission. Medications should be adjusted for the patient's ESRD. Avoid gadolinium (2) Altered mental status (3) Urinary tract infection Plan: Abx deferred to primary (4) Failure to thrive in adult Plan: Repeat phos level tomorrow and supplement if needed. Ongoing these last several months. Even if the patient improves enough to be discharged [id number] and overall clinical condition will likely be very poor given severe debilitation, dementia, medical comorbidities and advanced age.. Patient has been requesting to come off the dialysis machine early as an outpatient during her treatment but still indicated recently that she wanted to continue dialysis. She was advised however by being noncompliant with her dialysis treatments her overall prognosis is significantly reduced. (5) Anemia of renal disease Plan: Continue Epogen. (Gaviota Nicholson) Plan The exam, history, and the medical decision-making described in the above note were completed with the assistance of the PA-C. I reviewed and agree with the findings presented. (Pio Morton MD) Problem Qualifiers (1) Altered mental status: Qualified Code: R41.0 - Delirium (2) Urinary tract infection: Qualified Code: N30.00 - Acute cystitis without hematuria Gaviota Nicholson Dec 26, 2016 10:16 Pio Morton MD Jan 02, 2017 10:47
--- NOTE | 2016-12-26 10:17 | HHI.CCPN ---
Subjective Remarks/Hospital Course Hospital Course: This is an 89yF with history of congestive heart failure with a prior EF of 35% , end-stage renal disease on HD who initially presented to the hospital with urinary tract infection. She was actually scheduled to be discharged today when she had a significant hemoglobin drop from 7.7 --> 6.3, rechecked and was down to 5. At that time, she did not have any overt signs of bleeding. However , this afternoon she had a large melanotic bowel movement and became hemodynamically unstable with SBP in the 80s, and felt very fatigued. A rapid response was called. I immediately evaluated the patient. She was diaphoretic and hypotensive. very pale appearing. We immediately ordered 2 units uncrossmatched emergency release blood from the blood bank, and we transferred her emergently to the ICU. At this point, she also had no iv access. Vascular access team was at bedside and placed an 18g piv for us. I additionally placed a second 18g piv so we could maintain 2 large bore piv access at all times. Unfortunately, due to the hemodynamically unstable nature of the patient, additional information is unobtainable from the patient. The family medicine team did talk with her son and medical decision maker, and he stated that he wanted to keep the DNR status in place. He did say that transient intubation for a GI procedure would be acceptable for her as long as long-term ventilation was not considered. We will proceed with medically aggressive care with DNR in place and intubation only for procedures. 12/19: GI secured multiple gastric ulcers with cauterization and epinephrine. intubated for airway protection and left intubated to watch clinical course. this morning received 2 units prbc with appropriate response. IHD today. I had a long talk with her daughter, where I reiterated that the decision by the family to intubate the patient for this one procedure is a reasonable one, but if she did not extubate on pathway, or if she extubated and failed from a pulmonary standpoint, the entire family agrees that the patient was strict in her wishes to remain DNR/DNI, and a re-intubation for pulmonary reasons was likely against her wishes. 12/20: Patient remains intubated, sedated with propofol. Wakes up follows commands. WBC improving 23.9 to 20, Hb stable. Chest x-ray pending 12/21: Patient is lethargic and week but wakes up and follows commands. Hypoglycemic with blood sugar in 50s, receiving orange juice through OG tube 12/22: s/p Bronchoscopy yesterday with thick yellow mucus plug removed L main bronchus with re expansion of lung. Tolerating CPAP. Plan is to extubate today. 12/23: Currently on 3 L nasal cannula. Advanced to a pured diet with thickened liquids. Afebrile. Positive BM. On D10 secondary hyperglycemia 12/24: Left lung continues to collapse. Saturating 95 percent on 2 L saturation probe except. Very poor appetite. -3 L of hemodialysis yesterday. 12/25: Status post intubation and bronchoscopy with thick white mucous plug and left mainstem. Post bronchoscopy x-ray revealed reexpansion of lung. AM x-ray pending. Noted low phosphorus currently been replaced. Resting comfortably in bed. Subjective: 12/26: Extubated yesterday without complication. Currently afebrile. Noted drop in hemoglobin. Recheck this afternoon. Currently undergoing hemodialysis. Left lung remains expanded. Objective Vital Signs Date Time Temp Pulse Resp B/P Pulse Ox O2 Delivery O2 Flow Rate FiO2 12/26/16 07:54 100 Nasal Cannula 3.00 12/26/16 06:00 108 12/26/16 04:00 97.8 20 102/61 12/25/16 12:00 30 Intake and Output 12/25/16 12/25/16 12/26/16 08:00 16:00 00:00 Intake Total 385 ml 1050 ml 848 ml Output Total 0 ml 0 ml 3000.0 ml Balance 385 ml 1050 ml -2152.0 ml Result Diagram: 12/26/16 0400 12/26/16 0400 Other Results Microbiology Date/Time Procedure Status Source Growth 12/24/16 13:45 Gram Stain - Final Complete Bronchial Washings Left Upper Lobe 12/24/16 13:45 Bronchial Culture - Final Complete Bronchial Washings Left Upper Lobe MODERATE GROWTH NORMAL RESPIRATORY DANIEL 12/24/16 13:45 Fungal Smear - Final Resulted Bronchial Washings Left Upper Lobe NO FUNGAL ELEMENTS SEEN. 12/24/16 13:45 Fungal Culture Resulted Bronchial Washings Left Upper Lobe Pending 12/24/16 13:45 Acid Fast Stain - Final Resulted Bronchial Washings Left Upper Lobe NO ACID FAST BACILLI SEEN 12/24/16 13:45 Mycobacterial Culture Resulted Bronchial Washings Left Upper Lobe Pending 12/22/16 11:50 Respiratory Culture - Final Complete Oral Mouth 12/21/16 13:53 Aerobic Blood Culture - Preliminary Resulted Blood Peripheral NO GROWTH IN 4 DAYS 12/21/16 13:53 Anaerobic Blood Culture - Preliminary Resulted Blood Peripheral NO GROWTH IN 4 DAYS Imaging Last Impressions Chest X-Ray 12/25/16 0000 Signed Impressions: Service Date/Time: Sunday, December 25, 2016 08:41 - CONCLUSION: Mild left lung base atelectasis and/or infiltrate is seen and mild case of pulmonary venous congestion is suspected. Rigoberto Valencia MD Upper Extremity Ultrasound 12/24/16 0000 Signed Impressions: Service Date/Time: Saturday, December 24, 2016 14:41 - CONCLUSION: Normal examination. Benjamin Oquendo MD Chest CT 12/24/16 0000 Signed Impressions: Service Date/Time: Saturday, December 24, 2016 12:00 - CONCLUSION: The left main bronchus is filled with soft tissue density could be secretions with mucous plugging versus neoplastic process and the entire left lung is consolidated/collapsed with a tiny left pleural effusion. Rigoberto Valencia MD Hip and Pelvis X-Ray 12/15/16 0000 Signed Impressions: Service Date/Time: Thursday, December 15, 2016 05:00 - CONCLUSION: Intact total hip prosthesis for technique and extensive stool and osteopenia as above. Rigoberto Valencia MD Head CT 12/15/16 0000 Signed Impressions: Service Date/Time: Thursday, December 15, 2016 04:53 - CONCLUSION: Chronic and small vessel ischemic changes without any evidence for acute hemorrhage or mass effect. Rigoberto Valencia MD Cervical Spine CT 12/15/16 0000 Signed Impressions: Service Date/Time: Thursday, December 15, 2016 04:53 - CONCLUSION: Neural foramina compromise right C3-4, right C5-C6 and bilateral lateral recess compromise C5- 6. Rigoberto Valencia MD Objective Remarks GENERAL: 89-year-old female, critically ill currently resting in bed on nasal cannula SKIN: Warm and dry. Obvious ecchymosis bilateral upper extremities with multiple skin tears bilateral lower extremities HEAD: Atraumatic. Normocephalic. EYES: Pupils equal and round about 2 mm bilaterally and reactive. No scleral icterus. No injection or drainage. ENT: No nasal bleeding or discharge. Mucous membranes pink and moist. NECK: Trachea midline. No JVD. CARDIOVASCULAR: Tachycardia, normal rhythm. S1, S2. No S4. Without murmur RESPIRATORY: Poor aeration/breath sounds throughout left lung amaral. Positive end expiratory wheeze.. GASTROINTESTINAL: Abdomen soft, non-tender, nondistended. Active bowel sounds. MUSCULOSKELETAL: Extremities with trace lower extremity edema. Upper extremity left greater than right edema and ecchymosis. Right AV fistula positive thrill. NEUROLOGICAL: Cranial nerves II through XII grossly intact. Moves all 4 extremities spontaneously. No obvious cranial nerve deficits. Vascular Central Line Catheter: Yes Assessment to: Continue Date of Insertion: Dec 24, 2016 Line: Central Venous Catheter Side: Left Location: Internal, Jugular A/P Assessment and Plan Neuro/Psych: Macular degeneration History of CVA Dementia Acetaminophen for fever/pain Holding Desyrel 50 at night for depression. Continue latanoprost 0.005% 1 drop each eye at night for macular degeneration CV: Chronic systolic ejection failure ejection fraction 35% History of hypertension Dyslipidemia History of paroxysmal atrial fibrillation Peripheral vascular disease Disease with stent placement question elisa Holding Coreg 25 twice a day, Norvasc 5 mg daily for hypertension. Holding Plavix 75 mg by mouth daily in light of gastric ulcer Okayed resume aspirin 81 mg daily for A. fib by GI Continue Pravachol 40 mg by mouth daily for dyslipidemia Resp: Recent history of left mucous plugging Respiratory insufficiency Nasal cannula to maintain saturations greater than equal to 92% 3 currently on 3 L nasal cannula Incentive spirometry while awake Bronchodilator therapy every 4 hours and as needed A cappella/PEP/EZ PAP every 4 hours with DuoNeb therapies Follow-up chest x-ray in a.m. 3% hypertonic saline every 4 hours thin secretions with breathing treatments GI: Upper GI bleed secondary to peptic ulcer Gastroesophageal reflux disease S/P EGD with cauterization (12/18/16) ----> bleeding ulcer antrum controlled with injection epinephrine and ablation. Currently Protonix 40 mg IV twice a day MiraLAX daily for bowel regimen Tube feeds initiated with Glucerna 1.5. Currently at 30 cc an hour : Ariza not indicated/anuric Endo: Hypothyroidism Hypoglycemia Continue Synthroid at 112 mcg by mouth daily Sliding-scale insulin with Accu-Cheks to maintain euglycemia. Renal: End-stage renal disease on hemodialysis Sunday//Sunday Status post hemodialysis today -3 L Holding PhosLo 667 3 times a day with low phosphorus Heme: Leukocytosis Normocytic anemia Monitor CBC daily. Follow trends. Status post trans fusion 6 PRBCs, 2 FFP this admission Leukemoid versus infectious for elevated WBC ID: Group D enterococcus from back sacral decubitus ulcer wound Michael Choudhury Continue Levaquin/Zosyn/Diflucan Pertinent cultures 12/15: Blood cultures 2 - no growth 12/15 - urine - negative 12/21 - blood cultures 2 - no growth 12/21 - bronchoscopy - no growth/negative AFB/fungal with yeast 12/22 - mouth - no growth 12/22 - wound -coccus faecalis 12/24 - bronchoscopy -no growth MSK: Osteoporosis/osteoarthritis PT/OT evaluate and treat Continue vitamin D3 2000 units daily FEN: Hypophosphatemia Hypomagnesium Hypopotassemia Recheck phosphorus this AM. Received 20 mEq KCl 1 now Replace electrolytes as clinically indicated Access - Utilize peripheral IV. Central line if indicated Prophylaxis - GI - Protonix twice a day - DVT - SCD/chemical prophylaxis currently on hold with recent gastric ulcer bleeding Critical Care: The total critical care time was 35 minutes. Time to perform other separately billable procedures was not included in the critical care time. Aram Strickland MD Dec 26, 2016 10:17
[2016-12-26] MEDS: PRAVASTATIN SOD 40 MG TAB PO SCH (10:18)
[2016-12-26] MEDS: CHOLECALCIFEROL (VIT D3) 1000 UNIT TAB PO SCH (10:18)
[2016-12-26] MEDS: ASPIRIN EC 81 MG TABEC PO SCH (10:18)
[2016-12-26] MEDS: PANTOPRAZOLE SODIUM 40 MG VIAL IV PUSH SCH ×2 (10:19→20:23)
[2016-12-26] MEDS: VITAMIN B CMPLX/VITC/FOLIC AC CAP PO SCH (10:19)
[2016-12-26] MEDS: SODIUM CHLORIDE 0.9% FLUSH 10 ML FLUSH IVF SCH (10:19)
[2016-12-26] MEDS: LEVOFLOXACIN 500 MG PREMIX INJ 100 ML IV SCH (10:19)
[2016-12-26] MEDS: POTASSIUM CHLOR 20 MEQ PREMIX 100 ML IV SCH ×2 (10:19→13:42)
[2016-12-26] MEDS: SODIUM CHLORIDE 0.9% FLUSH 10 ML FLUSH IVF PRN (10:19)
[2016-12-26] MEDS: SODIUM CHLORIDE 0.9% FLUSH 10 ML FLUSH IV FLUSH PRN (10:19)
[2016-12-26] MEDS: SODIUM CHLORIDE 0.9% FLUSH 10 ML FLUSH IV FLUSH SCH ×2 (10:20→20:22)
--- NOTE | 2016-12-26 11:17 | HHI.FPPN ---
Subjective Remarks Extubated yesterday, currently on 4 L NC. Daughter at beside, says she was very agitated overnight but calmed when daughter arrived at bed. She is still basically non-communicative per daughter. She will sometimes nod or shake her head to questions. Cannot localize pain or symptoms. (Kade Tyler MD R1) Objective Vitals Vital Signs Date Time Temp Pulse Resp B/P Pulse Ox O2 Delivery O2 Flow Rate FiO2 12/26/16 07:54 100 Nasal Cannula 3.00 12/26/16 06:00 108 12/26/16 04:00 109 12/26/16 04:00 97.8 109 20 102/61 100 12/26/16 02:00 93 12/26/16 01:52 20 12/26/16 00:00 97.7 110 22 111/65 100 12/26/16 00:00 110 12/25/16 22:00 108 12/25/16 20:49 100 Nasal Cannula 4.00 12/25/16 20:00 109 12/25/16 20:00 98.3 109 20 111/58 100 12/25/16 18:00 109 12/25/16 16:00 97.8 110 22 112/56 100 12/25/16 16:00 110 12/25/16 14:00 112 12/25/16 12:35 95 Nasal Cannula 4 12/25/16 12:25 95 Nasal Cannula 4.00 12/25/16 12:00 98.4 108 31 132/71 97 12/25/16 12:00 30 12/25/16 12:00 108 12/25/16 11:27 100 30 12/25/16 11:21 30 12/25/16 11:21 100 30 I/O 12/25/16 12/25/16 12/25/16 12/26/16 12/26/16 12/26/16 07:00 15:00 23:00 07:00 15:00 23:00 Intake Total 385 ml 1050 ml 848 ml 210 ml Output Total 0 ml 0 ml 3000.0 ml 0 ml Balance 385 ml 1050 ml -2152.0 ml 210 ml IV Total 325 ml 548 ml 557 ml 0 ml Tube Feeding 252 ml 261 ml 180 ml Other 60 ml 250 ml 30 ml 30 ml Output Urine Total 0 ml 0 ml 0 ml 0 ml Tube Feeding Residual Discard 0 ml 0 ml Hemodialysis 3000 ml # Bowel Movements 1 3 0 0 (Kade Tyler MD R1) Result Diagram: 12/26/16 0400 12/26/16 040 Objective Remarks GENERAL: Elderly white female. Awake with NC in place. No acute distress. SKIN: Pallor. Stage 2-3 sacral decubitus ulcer (dressing changed 12/14, sees wound care), stage 2-3 pressure ulcer R posterior calf, healing. Skin abrasion over L anterior warren. Several bruises over shins and forearms in various stages of healing. Severe edema right forearm and hand. CARDIOVASCULAR: Normal rate, irregularly irregular rhythm. Normal S1/S2. No MRG RESPIRATORY: Decreased breath sounds left lower lung field anteriorly, less so than exam 12/24. Poor inspiratory effort. Mild crackles b/l lung bases. ABDOMEN: Soft, non-distended, non-tender. MUSCULOSKELETAL: Extremities without clubbing, cyanosis, or edema. Wounds as documented above. NEURO: Awake, alert. Responds intermittently to yes/no questions. Does not vocalize. Procedures Hemodialysis - Tue/Thur/Sat schedule Bianchi-endoscopy - 12/18/16 (Kade Tyler MD R1) Date of Insertion: Dec 24, 2016 Line: Central Venous Catheter Side: Left Location: Internal, Jugular (Kade Tyler MD R1) A/P Assessment and Plan 89 yo female with PMH of CHF with last echo 2014 showing EF 35%, ESRD on dialysis TTS, CAD s/p stenting, sacral decubitus ulcers presenting after being found on the ground at half-way. Sent to the ED for evaluation and was admitted for altered mental status and urinary tract infection. Discharge Planning Unclear; pending stabilization of medical issues and discussion with palliative care team (Kade Tyler MD R1) Attending Attestation Patient seen and examined. Case reviewed and discussed with the resident team. Agree with plan of care as discussed with me and documented in the resident note. (No Darden MD) Problem List: (1) Streptococcal infection group D enterococcus Status: Acute Plan: Wound culture showing Group D enterococcus, elevated white count, no fevers. Blood culture no growth (final) - Continue Zosyn - Monitor white count, vital signs - Wound care as below (2) Yeast infection Status: Acute Plan: Bronchial washings showing yeast species - Continue Fluconazole daily (3) Acute upper GI bleed Status: Resolved Plan: GIB noted by dropping H/H, large bloody BM on 12/18. EGD 12/18 showed bleeding peptic ulcers, now s/p cauterization. H/H stable; decreased by 1 point today am (9.8) - Repeat H/H today at 1500 - Weed Control Inspector consulted, appreciate recommendations - CXR today AM showing mild L base atelectasis/infiltrate stable from study - EZPAP ordered for after extubation - Add CPT for after extubation as well - GI consulted, appreciate recommendations - S/p EGD with cautery of peptic ulcers; per GI 30-40% chance of re-bleeding - PPI = 40 mg Protonix IV BID - S/p 6 units PRBC, 2 units FFP - Palliative care consulted, appreciate assistance - Alternative code status = re-intubation okay, no chest compressions or shock, ACLS drugs okay - Would qualify for hospice given advanced age and medical comorbidities, will be ongoing discussion with family - Nutrition consult for dietary recommendations, currently getting tube feedings - Speech therapy to evaluate swallow function for possible progression of diet once more stable - Resumed aspirin, holding Plavix (4) Urinary tract infection Status: Resolved Plan: UA with leuk esterase and bacteria (catheterized sample). Leukocytosis but no fevers. UCx showing contaminant (50-100k mixed GPC). - s/p Levaquin dosed renally (500 mg Q48H), s/p coverage of 5 days with fluoroquinolone (cipro day 1, Levaquin x2 doses with each dose covering 48 hours ) (5) Altered mental status Status: Resolved Plan: Presented with altered mental status due to UTI prior to development of GIB. S/p treatment with Levaquin. Currently on Zosyn as above for leukocytosis with unclear etiology. Mental status improving post-extubation. EKG without tachycardia, ST-T wave changes; AFib with normal HR EEG showing no evidence of seizure disorder Troponins/EKG reassuring ECHO done, EF of 55 to 60% UCx 50-100k CFU/mL mixed GPC - Has been getting Tylenol 1 g IV Q6H for pain, on discharge can consider scheduling 650 mg PO every 6-8 hours - Antibiotics as above for leukocytosis - Delirium prevention: sunlight, no sleeping during the day, hold sedating medications (6) CHF, chronic Status: Chronic Plan: EF 55-60%, no signs of pulmonary edema on exam - Continue home beta rock (7) ESRD (end stage renal disease) on dialysis Status: Chronic Plan: Creatinine at baseline. Hemodialysis on a Sunday, , Sunday schedule. - Nephrology on board, appreciate recs - Continue phosphate binder, Ca, vitamin D - Continue outpatient dialysis - Renally dose medicines, avoid nephrotoxic agents (8) Anemia of renal disease Status: Chronic Plan: Anemia of chronic disease Serum iron 22 TIBC 150 % saturation ~15 - Nephrology consulted, appreciate recs - Venofer as ordered by nephrology (daily) (9) Sacral decubitus ulcer Status: Chronic Plan: Stable from previous descriptions in outpatient setting Wound culture obtained by [facility] due to leukocytosis - F/u wound culture - Consult wound nurse, appreciate recs - Rotate patient every 2 hours - Santyl dressing changes daily on sacral ulcer, not on other ulcers - On discharge, continue treatment of wounds per patient's wound care physician (10) Essential hypertension Status: Chronic Plan: Borderline low blood pressures - Holding Coreg (11) Coronary artery disease Status: Chronic Plan: S/p CABG - Resumed aspirin - Holding plavix - Continue statin (12) History of right hip hemiarthroplasty Status: Chronic Plan: No abnormalities on X-ray - Pain as above (13) Paroxysmal atrial fibrillation Status: Chronic Plan: Had been on Coumadin previously, but due to recent bleed requiring hospital visit this was discontinued. - Continue rate control with beta rock - Resumed aspirin - Holding Plavix (14) Dementia Status: Chronic Plan: Dementia, at high risk for delirium - Delirium precautions (15) FEN/PPX Status: Acute Plan: Fluids: use with caution Elecs: Monitor and replete PRN Nutrition: Pureed diet, thickened liquids DVT: Held due to GIB dw Dr. Darden (Kade Tyler MD R1) Problem Qualifiers (1) Urinary tract infection: Qualified Code: N30.00 - Acute cystitis without hematuria (2) Altered mental status: Qualified Code: R41.0 - Delirium (3) CHF, chronic: Qualified Code: I50.9 - Chronic congestive heart failure, unspecified congestive heart failure type (4) Sacral decubitus ulcer: Qualified Code: L89.159 - Decubitus ulcer of sacral region, unspecified ulcer stage (5) Coronary artery disease: Qualified Code: I25.10 - Coronary artery disease involving [place] coronary artery of [place] and [place] heart, angina presence unspecified (6) Dementia: Qualified Code: 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
[2016-12-26] MEDS: EPOETIN ALFA 10,000 UNITS/ML VIAL IV SCH (11:23)
[2016-12-26] MEDS: FLUCONAZOLE 100 MG PREMIX BAG 50 ML IV SCH (13:42)
[2016-12-26 16:57] LABS: HEMATOCRIT 29.9 % (35.0-46.0); REVIEW FLAG FINAL
[2016-12-26] MEDS: LATANOPROST 0.005% OPHT SOLN 2.5 ML BTL EACH EYE SCH (20:22)
[2016-12-27] VITALS (14 sets, daily range): BP systolic 100–118; BP diastolic 56–76; PULSE 97–128; RESP 16–30; TEMP 98.1–98.6; O2SAT 93–100
[2016-12-27] MEDS: RESP: ALBUTEROL 2.5 MG/IPRATROPIUM 0.5 MG NEB (SCH) NEB ×6 (04:05→23:19)
[2016-12-27] MEDS: RESP: SODIUM CHLORIDE 3% 4 ML NEB NEB SCH ×6 (04:05→23:19)
[2016-12-27 04:13] LABS: AUTOMATED NEUTROPHIL # 18.8 TH/MM3 (1.8-7.7); BASOPHIL # 0.1 TH/MM3 (0-0.2); BASOPHIL % 0.4 % (0.0-2.0); EOSINOPHIL # 0.3 TH/MM3 (0-0.4); EOSINOPHIL % 1.1 % (0.0-4.0); HEMATOCRIT 29.1 % (35.0-46.0); LYMPHOCYTE # 1.1 TH/MM3 (1.0-4.8); MEAN CELL VOLUME 91.9 FL (80.0-100.0); MEAN CORPUSCULAR HEMOGLOBIN 30.1 PG (27.0-34.0); MEAN CORPUSCULAR HGB CONC 32.7 % (32.0-36.0); MONO % 8.4 % (0.0-8.0); NEUT % 85.1 % (16.0-70.0); PLATELET COUNT 322 TH/MM3 (150-450); RED BLOOD COUNT 3.17 MIL/MM3 (4.00-5.30); RED CELL DISTRIBUTION WIDTH 16.7 % (11.6-17.2); WHITE BLOOD COUNT 22.1 TH/MM3 (4.0-11.0)
[2016-12-27 04:35] LABS: HEMO FLAGS AUTO DIFF
[2016-12-27 05:03] LABS: ALKALINE PHOSPHATASE 103 U/L (45-117); ALT (GPT) 10 U/L (10-53); ANION GAP 7 MEQ/L (5-15); AST (GOT) 17 U/L (15-37); BICARBONATE 32.8 MEQ/L (21.0-32.0); BLOOD UREA NITROGEN 17 MG/DL (7-18); CHLORIDE 98 MEQ/L (98-107); GLOMERULAR FILTRATION RATE 20 ML/MIN (>89); MAGNESIUM 1.8 MG/DL (1.5-2.5); POTASSIUM 3.6 MEQ/L (3.5-5.1); SODIUM (NA) 138 MEQ/L (136-145); TOTAL BILIRUBIN ADULT 0.7 MG/DL (0.2-1.0)
[2016-12-27] MEDS: guaiFENesin SOLUTION 200 MG/10 ML CUP PO SCH ×3 (05:38→20:11)
[2016-12-27] MEDS: PIPERACIL-TAZO 2.25 GM PREMIX 50 ML IV SCH ×3 (05:38→20:11)
[2016-12-27] MEDS: LEVOTHYROXINE SODIUM 112 MCG TAB PO SCH (05:38)
--- NOTE | 2016-12-27 06:37 | RADRPT ---
EXAM DATE/TIME: 12/27/2016 04:15 [facility] COMPARISON: CHEST SINGLE AP, December 26, 2016, 7:56. CHEST SINGLE AP, December 25, 2016, 8:41. CHEST SINGLE AP, Apri 2016, 15:25. INDICATIONS : Shortness of breath. MEDICAL HISTORY : Hypercholesterolemia. Stroke. Congestive heart failure. Glaucoma. SURGICAL HISTORY : Left lobectomy. Tricuspid valve replacement. Lumbar fusion ENCOUNTER: Subsequent ACUITY: 1 week PAIN SCORE: Non-responsive. LOCATION: Bilateral chest FINDINGS: A single view of the chest demonstrates persistent dense consolidation in the left lung base. There i s intact sternal wires and clips suggesting CABG. The mediastinum is shifted from right to left. Righ t lung is relatively clear. Right-sided stent is in good position. Left IJ central line in good posit ion. NG tube in good position. Osseous structures are intact. CONCLUSION: Persistent volume loss and consolidation left lung base. Right lung remains clear. Naun Nash MD on December 27, 2016 at 6:35 Board Certified Radiologist. This report was verified electronically.
[2016-12-27 07:11] LABS: BANDS 1 % (0-6); BASOPHILS 1 % (0-2); MYELOCYTES 2 % (0-0); NEUTROPHIL # MANUAL DIFF 18.3 TH/MM3 (1.8-7.7); PLATELET ESTIMATE SMEAR NORMAL (NORMAL); PLATELET MORPHOLOGY NORMAL (NORMAL); POLYS (SEG NEUTROPHILS) 80 % (16-70); SCAN/DIFF FINAL DIFF MANUAL; WBC DIFF SAMPLE 100
[2016-12-27 07:12] LABS: POLYCHROMASIA 2.5 % (0.0-1.9)
[2016-12-27] MEDS: POLYETHYLENE GLYCOL 17 GM PKG PO SCH (07:25)
[2016-12-27] MEDS: CHLORHEXIDINE 0.12% (ORAL KIT) 15 ML CUP MT SCH ×4 (07:25→20:00)
[2016-12-27] MEDS: CHOLECALCIFEROL (VIT D3) 1000 UNIT TAB PO SCH (08:17)
[2016-12-27] MEDS: PANTOPRAZOLE SODIUM 40 MG VIAL IV PUSH SCH ×2 (08:17→20:10)
[2016-12-27] MEDS: ASPIRIN EC 81 MG TABEC PO SCH (08:17)
[2016-12-27] MEDS: PRAVASTATIN SOD 40 MG TAB PO SCH (08:17)
[2016-12-27] MEDS: VITAMIN B CMPLX/VITC/FOLIC AC CAP PO SCH (08:17)
[2016-12-27] MEDS: NUTRITIONAL SUPPLEMENTS PO SCH (08:18)
[2016-12-27] MEDS: SODIUM CHLORIDE 0.9% FLUSH 10 ML FLUSH IV FLUSH SCH ×2 (08:18→20:10)
[2016-12-27] MEDS: SODIUM CHLORIDE 0.9% FLUSH 10 ML FLUSH IVF SCH (08:18)
[2016-12-27] MEDS: COLLAGENASE OINT 30 GM TUBE TOPICAL SCH (08:18)
[2016-12-27] MEDS: SODIUM CHLORIDE 0.9% FLUSH 10 ML FLUSH IVF PRN (08:18)
[2016-12-27] MEDS: SODIUM CHLORIDE 0.9% FLUSH 10 ML FLUSH IV FLUSH PRN (08:18)
--- NOTE | 2016-12-27 12:04 | HHI.HCPN ---
Reason for visit a. To assist with evaluation and management of symptoms including: dyspnea , encephalopathy, agitation b. To assist medical decision maker(s) with: better understanding of current medical conditions; weighing benefits/burdens of medical treatment options; making medical treatment decisions. . Subjective/Interval History Patient seen today to follow-up on respiratory status, comfort, goals. Notified by nursing patient's son and daughter is at bedside w questions requesting palliative care follow up visit. Extubated yesterday. Tolerating nasal cannula. Speech therapy attempted to to see patient yesterday however she was unable to complete swallow evaluation shortly after extubation. Labs with no significant changes, WBC continues to be elevated 22.1. Bronchoscopy washings from 12/24 with normal growth respiratory rodrigue, otherwise negative to date. CXR today =Persistent volume loss and consolidation left lung base. Right lung remains clear. [Dual visit with [facility] MAE.] Patient seen in room with son, daughter at bedside.(They are co-healthcare POA's) patient is awake, very weak appearing. Very weak gurgling cough observed during my assessment. Verbalizes some though voice is very soft, difficult to hear. She is oriented to immediate circumstances and family. Not clear how much insight she has to prolonged hospital course. Family requests update on current status--CXR within current diagnostics, current assessment, status post extubation, ST, OT, PT to continue to follow. Explore them CXR findings are still not improved, and that patient remains high risk for continued respiratory issues secondary to left lung consolidation, weak cough, inability to their secretions. Explore that while patient's labs and overall status have remained stable for the past couple of days that she does remain at risk for potential reintubation, other complications and decline. Daughter tells the patient in summary that she is doing better overall "except for her lung with the mucus ", both children then speak to her in encouragement and tell her that she must continue to make efforts to exercise , cough and deep breathe and participate with therapies so that she can get better. They endorse that she enjoys seeing them, but she still has some quality of life, and that in their conversations with her she would want to try the ventilator again if she again experiences respiratory compromise. They do have concerns about her overall skin condition, repositioning schedule, and feel that if patient is able to comply with the medical attendings respiratory treatment plan then she should continue to improve. Gently explore them that patient due to age, debility, frail status, other conditions--that her ability to aggressively participate in active physical therapy etc. is quite limited and even if she wants to try she will be limited by her bodies weakened state and underlying conditions. They endorse that they remain hopeful, and supportive of the patient's goals which are to keep trying to live. Remain alternative code, intubation only. ., Family/friend interactions * see above . Advance Directives Living Will: Never completed Health Care Surrogate: Never completed Durable Power of Asset Availability Leader: Copy in medical record Advance Directive Specifics Date completed: Health care POA form completed 09/08/2015. . Health Care Surrogate(s): Health care POA form lists : Brandy Pimentelсергейluis fernando (daughter) and Cristóbal Richey ( son) to serve together as health care surrogates. Documented care wishes: There is no written documentation of health care goals/preferences. . Objective Vital Signs Date Time Temp Pulse Resp B/P Pulse Ox O2 Delivery O2 Flow Rate FiO2 12/27/16 08:25 99 Nasal Cannula 2.00 12/27/16 08:00 111 12/27/16 08:00 98.3 111 24 100/57 93 12/27/16 06:00 106 12/27/16 04:00 98.2 110 28 110/61 100 12/27/16 04:00 110 12/27/16 02:00 97 12/27/16 00:00 107 12/27/16 00:00 98.3 107 24 115/76 100 12/26/16 22:00 105 12/26/16 21:21 20 12/26/16 20:02 99 Nasal Cannula 2.00 12/26/16 20:00 98.5 113 26 101/63 100 12/26/16 20:00 113 12/26/16 18:00 114 12/26/16 16:00 116 12/26/16 16:00 97.9 116 35 108/55 100 12/26/16 14:00 116 12/26/16 12:00 98.1 118 29 123/59 98 12/26/16 12:00 118 Intake & Output 12/27/16 12/27/16 07:00 19:00 Intake Total 788 ml Output Total 0 ml 0 ml Balance 788 ml 0 ml IV Total 269 ml Tube Feeding 459 ml Other 60 ml Output Urine Total 0 ml Tube Feeding Residual Discard 0 ml 0 ml # Bowel Movements 1 Physical Exam CONSTITUTIONAL/GENERAL: This is a pale, frail appearing elderly patient in an MICU bed. alert, weak TUBES/LINES/DRAINS: Ariza catheter; peripheral IVs; SKIN: No jaundice, rashes, or lesions. Multiple areas of ecchymosis to extremities, many skin tears on upper, lower extremities. Skin temperature appropriate. CARDIOVASCULAR: irregular rate and rhythm, no murmur. observe atrial fib, tachy rate 110's on bedside monitor. Edema RUE. RESPIRATORY/CHEST: Symmetric, unlabored respirations on 2L NC. Faint scattered rhonchi, left, decreased air movement left. Rt clear, diminished. GASTROINTESTINAL: Abdomen soft, no apparent tenderness, nondistended. No masses. No guarding. Bowel sounds present. MUSCULOSKELETAL: Extremities thin, ++muscle atrophy . Multiple areas of ecchymosis and skin tears to all 4 extremities. EDEMA RUE NEUROLOGICAL: Awake, partially oriented. Pleasant and cooperative. Very weak. Moves upper extremities very weakly. Very weak cough effort. PSYCHIATRIC: No obvious depression/anxiety/hallucinations . . Diagnostic Tests Laboratory Laboratory Tests Test 12/24/16 12/24/16 12/25/16 12/25/16 13:45 15:25 04:45 12:10 Bronchoalveolar Lavage WBC 1625 /MM3 Bronchoalveolar Lavage RBC 51544 /MM3 Bronchoalveolar Lavage 99 % Neutrophils Bronchoalveolar Lavage 0 % Lymphocytes Bronchoalveolar Lavage 1 % Eosinophils Lavage Fluid Total Volume 22.0 ML Lavage Fluid Total WBC Count 35.8 MILLION (4.7-7.1) Blood Gas Puncture Site LT BRACHIAL LT RADIAL Blood Gas Patient Temperature 98.6 98.6 Blood Gas HCO3 26 mmol/L 25 mmol/L (22-26) (22-26) Blood Gas Base Excess 3.8 mmol/L 0.7 mmol/L (-2-2) (-2-2) Blood Gas Oxygen Saturation 97 % (90-100) 96 % (90-100) Arterial Blood pH 7.56 7.42 (7.380-7.420) (7.380-7.420) Arterial Blood Partial 30 mmHg (38-42) 39 mmHg (38-42) Pressure CO2 Arterial Blood Partial 219 mmHg 120 mmHg Pressure O2 (61-120) (61-120) Arterial Blood Oxygen Content 14.0 Vol % 16.3 Vol % (12.0-20.0) (12.0-20.0) Arterial Blood 2.1 % (0-4) 1.8 % (0-4) Carboxyhemoglobin Arterial Blood Methemoglobin 1.1 % (0-2) 1.3 % (0-2) Blood Gas Hemoglobin 9.9 G/DL 12.0 G/DL (12.0-16.0) (12.0-16.0) Oxygen Delivery Device VENTILATOR VENTILATOR Blood Gas Ventilator Setting A/C CPAP/PS10/PEEP5 450/16/8PEEP Blood Gas Inspired Oxygen 50 % 35 % White Blood Count 20.1 TH/MM3 (4.0-11.0) Red Blood Count 3.58 MIL/MM3 (4.00-5.30) Hemoglobin 10.8 GM/DL (11.6-15.3) Hematocrit 32.5 % (35.0-46.0) Mean Corpuscular Volume 90.8 FL (80.0-100.0) Mean Corpuscular Hemoglobin 30.3 PG (27.0-34.0) Mean Corpuscular Hemoglobin 33.4 % Concent (32.0-36.0) Red Cell Distribution Width 16.4 % (11.6-17.2) Platelet Count 236 TH/MM3 (150-450) Mean Platelet Volume 7.1 FL (7.0-11.0) Neutrophils (%) (Auto) % (16.0-70.0) Lymphocytes (%) (Auto) % (9.0-44.0) Monocytes (%) (Auto) % (0.0-8.0) Eosinophils (%) (Auto) % (0.0-4.0) Basophils (%) (Auto) % (0.0-2.0) Neutrophils # (Auto) TH/MM3 (1.8-7.7) Lymphocytes # (Auto) TH/MM3 (1.0-4.8) Monocytes # (Auto) TH/MM3 (0-0.9) Eosinophils # (Auto) TH/MM3 (0-0.4) Basophils # (Auto) TH/MM3 (0-0.2) CBC Comment AUTO DIFF Differential Total Cells 100 Counted Neutrophils % (Manual) 72 % (16-70) Band Neutrophils % 1 % (0-6) Lymphocytes % 11 % (9-44) Monocytes % 9 % (0-8) Eosinophils % 4 % (0-4) Neutrophils # (Manual) 15.3 TH/MM3 (1.8-7.7) Metamyelocytes 2 % (0-1) Myelocytes 1 % (0-0) Differential Comment FINAL DIFF MANUAL Platelet Estimate NORMAL (NORMAL) Platelet Morphology Comment NORMAL (NORMAL) Sodium Level 136 MEQ/L (136-145) Potassium Level 4.5 MEQ/L (3.5-5.1) Chloride Level 96 MEQ/L (98-107) Carbon Dioxide Level 29.6 MEQ/L (21.0-32.0) Anion Gap 10 MEQ/L (5-15) Blood Urea Nitrogen 20 MG/DL (7-18) Creatinine 3.37 MG/DL (0.50-1.00) Estimat Glomerular Filtration 13 ML/MIN (>89) Rate Random Glucose 96 MG/DL (74-106) Calcium Level 7.9 MG/DL (8.5-10.1) Phosphorus Level 1.1 MG/DL (2.5-4.9) Magnesium Level 1.6 MG/DL (1.5-2.5) Total Bilirubin 0.7 MG/DL (0.2-1.0) Aspartate Amino Transf 20 U/L (15-37) (AST/SGOT) Alanine Aminotransferase 9 U/L (10-53) (ALT/SGPT) Alkaline Phosphatase 108 U/L (45-117) Total Protein 5.2 GM/DL (6.4-8.2) Albumin 2.0 GM/DL (3.4-5.0) Test 12/26/16 12/26/16 12/27/16 04:00 15:55 03:15 White Blood Count 20.4 TH/MM3 22.1 TH/MM3 (4.0-11.0) (4.0-11.0) Red Blood Count 3.18 MIL/MM3 3.17 MIL/MM3 (4.00-5.30) (4.00-5.30) Hemoglobin 9.5 GM/DL 9.9 GM/DL 9.5 GM/DL (11.6-15.3) (11.6-15.3) (11.6-15.3) Hematocrit 29.0 % 29.9 % 29.1 % (35.0-46.0) (35.0-46.0) (35.0-46.0) Mean Corpuscular Volume 91.4 FL 91.9 FL (80.0-100.0) (80.0-100.0) Mean Corpuscular Hemoglobin 29.9 PG 30.1 PG (27.0-34.0) (27.0-34.0) Mean Corpuscular Hemoglobin 32.7 % 32.7 % Concent (32.0-36.0) (32.0-36.0) Red Cell Distribution Width 16.1 % 16.7 % (11.6-17.2) (11.6-17.2) Platelet Count 303 TH/MM3 322 TH/MM3 (150-450) (150-450) Mean Platelet Volume 6.6 FL 6.8 FL (7.0-11.0) (7.0-11.0) Neutrophils (%) (Auto) 88.2 % 85.1 % (16.0-70.0) (16.0-70.0) Lymphocytes (%) (Auto) 4.1 % 5.0 % (9.0-44.0) (9.0-44.0) Monocytes (%) (Auto) 6.6 % (0.0-8.0) 8.4 % (0.0-8.0) Eosinophils (%) (Auto) 0.9 % (0.0-4.0) 1.1 % (0.0-4.0) Basophils (%) (Auto) 0.2 % (0.0-2.0) 0.4 % (0.0-2.0) Neutrophils # (Auto) 18.0 TH/MM3 18.8 TH/MM3 (1.8-7.7) (1.8-7.7) Lymphocytes # (Auto) 0.8 TH/MM3 1.1 TH/MM3 (1.0-4.8) (1.0-4.8) Monocytes # (Auto) 1.3 TH/MM3 1.8 TH/MM3 (0-0.9) (0-0.9) Eosinophils # (Auto) 0.2 TH/MM3 0.3 TH/MM3 (0-0.4) (0-0.4) Basophils # (Auto) 0.0 TH/MM3 0.1 TH/MM3 (0-0.2) (0-0.2) CBC Comment AUTO DIFF AUTO DIFF Differential Total Cells 100 100 Counted Neutrophils % (Manual) 82 % (16-70) 80 % (16-70) Band Neutrophils % 2 % (0-6) 1 % (0-6) Lymphocytes % 4 % (9-44) 8 % (9-44) Monocytes % 7 % (0-8) 8 % (0-8) Eosinophils % 1 % (0-4) Basophils % 1 % (0-2) 1 % (0-2) Neutrophils # (Manual) 17.7 TH/MM3 18.3 TH/MM3 (1.8-7.7) (1.8-7.7) Myelocytes 3 % (0-0) 2 % (0-0) Differential Comment FINAL DIFF FINAL DIFF MANUAL MANUAL Platelet Estimate NORMAL NORMAL (NORMAL) (NORMAL) Platelet Morphology Comment NORMAL NORMAL (NORMAL) (NORMAL) Sodium Level 138 MEQ/L 138 MEQ/L (136-145) (136-145) Potassium Level 3.2 MEQ/L 3.6 MEQ/L (3.5-5.1) (3.5-5.1) Chloride Level 97 MEQ/L 98 MEQ/L (98-107) (98-107) Carbon Dioxide Level 32.4 MEQ/L 32.8 MEQ/L (21.0-32.0) (21.0-32.0) Anion Gap 9 MEQ/L (5-15) 7 MEQ/L (5-15) Blood Urea Nitrogen 16 MG/DL (7-18) 17 MG/DL (7-18) Creatinine 2.69 MG/DL 2.26 MG/DL (0.50-1.00) (0.50-1.00) Estimat Glomerular Filtration 17 ML/MIN (>89) 20 ML/MIN (>89) Rate Random Glucose 131 MG/DL 122 MG/DL (74-106) (74-106) Calcium Level 8.6 MG/DL 8.8 MG/DL (8.5-10.1) (8.5-10.1) Phosphorus Level 1.6 MG/DL 1.3 MG/DL (2.5-4.9) (2.5-4.9) Polychromasia 2.5 % (0.0-1.9) Basophilic Stippling FAINT (NORMAL) Magnesium Level 1.8 MG/DL (1.5-2.5) Total Bilirubin 0.7 MG/DL (0.2-1.0) Aspartate Amino Transf 17 U/L (15-37) (AST/SGOT) Alanine Aminotransferase 10 U/L (10-53) (ALT/SGPT) Alkaline Phosphatase 103 U/L (45-117) Total Protein 6.1 GM/DL (6.4-8.2) Albumin 2.6 GM/DL (3.4-5.0) Result Diagram: 12/27/16 03112/27/16 0315 Microbiology Microbiology Date/Time Procedure Status Source Growth 12/24/16 13:45 Gram Stain - Final Complete Bronchial Washings Left Upper Lobe 12/24/16 13:45 Bronchial Culture - Final Complete Bronchial Washings Left Upper Lobe MODERATE GROWTH NORMAL RESPIRATORY RODRIGUE 12/24/16 13:45 Acid Fast Stain - Final Resulted Bronchial Washings Left Upper Lobe NO ACID FAST BACILLI SEEN 12/24/16 13:45 Mycobacterial Culture Resulted Bronchial Washings Left Upper Lobe Pending 12/24/16 13:45 Fungal Smear - Final Resulted Bronchial Washings Left Upper Lobe NO FUNGAL ELEMENTS SEEN. 12/24/16 13:45 Fungal Culture Resulted Bronchial Washings Left Upper Lobe Pending Imaging Last Impressions Chest X-Ray 12/27/16 0600 Signed Impressions: Service Date/Time: Tuesday, December 27, 2016 04:15 - CONCLUSION: Persistent volume loss and consolidation left lung base. Right lung remains clear. Naun Nash MD Upper Extremity Ultrasound 12/24/16 0000 Signed Impressions: Service Date/Time: Saturday, December 24, 2016 14:41 - CONCLUSION: Normal examination. Benjamin Oquendo MD Chest CT 12/24/16 0000 Signed Impressions: Service Date/Time: Saturday, December 24, 2016 12:00 - CONCLUSION: The left main bronchus is filled with soft tissue density could be secretions with mucous plugging versus neoplastic process and the entire left lung is consolidated/collapsed with a tiny left pleural effusion. Rigoberto Valencia MD Hip and Pelvis X-Ray 12/15/16 0000 Signed Impressions: Service Date/Time: Thursday, December 15, 2016 05:00 - CONCLUSION: Intact total hip prosthesis for technique and extensive stool and osteopenia as above. Rigoberto Valecnia MD Head CT 12/15/16 0000 Signed Impressions: Service Date/Time: Thursday, December 15, 2016 04:53 - CONCLUSION: Chronic and small vessel ischemic changes without any evidence for acute hemorrhage or mass effect. Rigoberto Valencia MD Cervical Spine CT 12/15/16 0000 Signed Impressions: Service Date/Time: Thursday, December 15, 2016 04:53 - CONCLUSION: Neural foramina compromise right C3-4, right C5-C6 and bilateral lateral recess compromise C5- 6. Rigoberto Valencia MD Procedures * 12/24/16repeat bronchoscopy, reintubation * Intubation/mechanical ventilation * EGD with cauterization of gastric ulcer * Bronchoscopy 12/21/16 * Hemodialysis. . . Assessment and Plan Disease Oriented Problem List: (1) Acute upper GI bleed Comment: EGD of 12/18/16 revealed a gastric ulcer. Duodenitis without bleeding was also noted. . (2) Coronary artery disease Comment: Patient has had bypass surgery. (3) Essential hypertension (4) Paroxysmal atrial fibrillation (5) Hypothyroidism (acquired) (6) Sacral decubitus ulcer (7) ESRD (end stage renal disease) on dialysis Comment: Patient has been receiving hemodialysis for approximately 5 years (8) Altered mental status (9) Dementia Comment: Patient developed cognitive challenges following her second stroke. This seems to be more with reasoning and executive function than it is with short-term memory. . 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 First stroke --> good resolution. 2nd Stroke left her with problems with swallowing, speech, and executive function. . 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 . Symptom Scale: (1) Pain 0-10 Scale: Unable to quantify Comment: Patient with many years of lower extremity pain of uncertain etiology . (2) Dyspnea 0-10 Scale: Unable to quantify Comment: Repeat bronchoscopy on 12/25/16 . . (3) Encephalopathy 0-10 Scale: Unable to quantify (patient has underlying cognitive challenges. These have been exacerbated by what is either a metabolic encephalopathy or a multifactorial delirium.) Comment: . Pertinent Non-Medical Issues Psychosocial: Patient has a sonCristóbal-- who lives locally. DaughterBrandy lives in [place]. Spiritual: Patient grew up in a fundamentalist tradition. Daughter reports she became bitter following the premature of her . Legal: No known living will. There is a completed health care power of contract attorney document that gives: Health care surrogate designation to both of her children. Ethical issues impacting care: Patient is incapacitated to make her own medical decisions. It is not clear if she will regain capacity to do so. . Important Contacts * Cristóbal Richey (son and health co-health care POA) [phone] * Brandy Phillips (daughter and co-health care surrogate) . Prognosis Ms. Richey has not done well since her heart surgery -- CABG and tricuspid valve replacement-- several years ago. She has since suffered 2 strokes. Though she had some improvement after the first stroke. The second stroke left her with some swallowing issues, speech issues and some cognitive deficits. She has been frustrated with these deficits and has withdrawn socially. She is primarily wheelchair and bedbound. Daughter reports that her weight has fallen from a normal weight of approximately 160 pounds down to approximately 115 pounds. She has been receiving hemodialysis for approximately 5 years -- hemodialysis began shortly after her surgery which apparently also caused renal insufficiency. She suffered a hip fracture requiring repair about a month ago, and is now back in the hospital with respiratory failure, urinary tract infection, and a large gastrointestinal hemorrhage. Given the above, and her advanced age her prognosis is not great. It now appears that the patient will survive the intensive care unit, and live to hospital discharge. However, given her trajectory leading up to this hospitalization and given her advanced age, significant relapse is likely. Life expectancy is probably well under a year. Whenever the patient or her family feel they want to "transition to comfort measures, she would be eligible for hospice services. . Code Status: Alternative Code (No chest compressions or shock; Yes intubate and ACLS drugs) Plan == Code Status: ALTERNATE CODE palliative previously Spoke to son and daughter together. They want patient re-intubated if she is extubated and develops respiratory decompensation. Therefore , code status is ALTERNATE CODE. No shock / No chest compressions but Yes intubation / Yes ACLS drugs. 12/26/16revisit this with patient, son, daughter --patient to remain alternative code YES to intubation == Decision making: Son and daughter are joint health care surrogates. == Goals: Patient, supported by Son and daughter continue to want aggressive care short of the resuscitation limits noted above. They are open to ongoing discussions regarding goals as clinical course evolves. They have previously expressed They know the patient would not want to be dependent on a ventilator for the rest of her life and would not want to be sustained in a permanent vegetative state. However for now given her stability and ability to recently extubate, patient supported by the family wishes to continue to try to recover. == Pain: Patient has long-standing lower extremity pain of uncertain etiology. She also may be uncomfortable from her prolonged bedbound status; and vascular access lines. Patient recently weaned off of Diprivan sedation. Still very lethargic to my exam. Nursing reports no signs of pain. Had recently been on fentanyl for pain here during hospital course though currently they are trying to minimize any sedatives for possible extubation. Has prn fentanyl 50mcgs-- last dose 1am 12/24. Patient denies pain during assessment. Family does not report that she is complaining of any pain to them. == Dyspnea: Patient with multiple recent intubation/extubation Extubated . repeat bronch and intubation 12/25--> then again extubated yesterday . CXR stable, persistent left lung consolidation. Very weak cough, and immobile. Remains at risk for ongoing respiratory distress, failure == Encephalopathy: Patient has some baseline cognitive deficits, particularly with executive function since her second stroke. She is now alert, awake and partially oriented. For the most part appropriate-though does appear to lack insight and full understanding of conditions. == Palliative care will continue to follow during hospital course as condition evolves, to assist patient/decision-maker with understanding of medical conditions, weighing benefits/burdens of treatment options, for clarification of goals of treatment. Additionally will assist with any symptoms of palliative concern . Time Spent Total Floor Time (mins): 30 >50% Counseling/Coord of Care: Yes (discussed with attending, primary nurse) Attestation To help prompt me to consider important information that might be impacting today's encounter and assessment, information from prior notes written by myself or my colleagues may have been "brought forward" into today's note. My signature on this note, however, is an attestation that I personally performed the exam, history, and/or decision-making noted today, and, unless otherwise indicated, the interactions with patient, family, and staff as well as the review of records all occurred today. I also attest that the listed assessment and stated plan reflect my best clinical judgment today based on the combination of historical information, prior notes, and today's exam/ interactions. When time spent is documented, it refers only to time spent today by the signer, or if indicated, combined time spent today by collaborating physician/nurse practitioner. Cecilia Keys Dec 27, 2016 12:04
[2016-12-27] MEDS: FLUCONAZOLE 100 MG PREMIX BAG 50 ML IV SCH (12:24)
--- NOTE | 2016-12-27 13:15 | PD.ID.CON ---
History of Present Illness Service ID Consult Requested By Dr Tyler Reason for Consult positive cultures, abx rec's Primary Care Physician Non-Staff Diagnoses: History of Present Illness This is an 89yF with history of congestive heart failure with a prior EF of 35% , end-stage renal disease on HD initially presented to the hospital 2 weeks ago with urinary tract infection On the day of discharge she was noticed to have a significant hemoglobin drop from 7.7 - to 5 with no signs of bleeding. Later she had a large melanotic bowel movement and became hemodynamically unstable with SBP in the 80s, She was transferred to the ICU and emergently transfused She was made DNR in place and intubation only for procedures. EGD showed multiple gastric ulcers sp cauterization and epinephrine injection Pt was left intubated post procedure and on 12/22 underwent Bronchoscopy yesterday with finding of thick yellow mucus plug that were removed from L main bronchus with re expansion of lung. Pt was extubated same day. three days later she had another intubation and bronchoscopy for continuing Left lung collapse. She was again found to have thick white mucous plug and left mainstem. Post bronchoscopy x-ray revealed reexpansion of lung and she was extubated yesterday without complication. She remains on NC O2 She has significant leukocytosis consistently in low 20s but no fever BAL clx + with normal resp rodrigue along with non cryptococcal yeast Her wound cultures grew Entercoccus fecais, silva S along with HEAVY GROWTH NORMAL SKIN RODRIGUE Review of Systems ROS Limitations: Clinical Condition, Speech Impaired Past Family Social History Allergies: Coded Allergies: [employer] (Verified Allergy, Severe, Confusion, 12/15/16) violent behavior Dilaudid (Verified Allergy, Unknown, confusion, 12/15/16) violent behavior Morphine (Verified Allergy, Unknown, confusion, 12/15/16) violent behavior Adhesives (Verified Adverse Reaction, Severe, 11/14/16) Denies hives from tape, states, "I have very thin skin and the adhesive tears my skin." Penicillin (Verified Adverse Reaction, Intermediate, NAUSEA, 11/14/16) States, "I am taking an antibiotic in the Penicillin family right now without any problem. 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 Active Ordered Medications Medications where reviewed in EMR Antibiotics Include: zosyn, fluconazole Family History Non-Contributory. Social History No Tobacco. No ETOH. No Illicit Drugs. resides in senior living Physical Exam Vital Signs Vital Signs Date Time Temp Pulse Resp B/P Pulse Ox O2 Delivery O2 Flow Rate FiO2 12/27/16 08:25 99 Nasal Cannula 2.00 12/27/16 08:00 111 12/27/16 08:00 98.3 111 24 100/57 93 12/27/16 06:00 106 12/27/16 04:00 98.2 110 28 110/61 100 12/27/16 04:00 110 12/27/16 02:00 97 12/27/16 00:00 107 12/27/16 00:00 98.3 107 24 115/76 100 12/26/16 22:00 105 12/26/16 21:21 20 12/26/16 20:02 99 Nasal Cannula 2.00 12/26/16 20:00 98.5 113 26 101/63 100 12/26/16 20:00 113 12/26/16 18:00 114 12/26/16 16:00 116 12/26/16 16:00 97.9 116 35 108/55 100 12/26/16 14:00 116 Physical Exam CONSTITUTIONAL/GENERAL: This is a thin mal nourished elderly female patient, in no apparent distress. TUBES/LINES/DRAINS: SKIN: No jaundice, rashes, or lesions. Extensive ecchymoses on lower extremities. Stage III-IV sacral wound, necrotic, poor granulations, no purulence . Skin temperature appropriate. Not diaphoretic. HEAD: Atraumatic. Normocephalic. EYES: Pupils equal and round and reactive. Lea scleral icterus. No injection or drainage. Fundi not examined. ENT: Hearing grossly normal. Nose without bleeding or purulent drainage. Oral mucosae without visible erythema, exudates, masses, or lesions. NECK: Trachea midline. Supple, nontender. CARDIOVASCULAR: Regular rate and rhythm without murmurs, gallops, or rubs. No JVD. Pedal pulses not palpable RESPIRATORY/CHEST: Symmetric, unlabored respirations. Diminished BS to auscultation on L base. No wheezes, rales, or rhonchi. GASTROINTESTINAL: Abdomen soft, non-tender, nondistended. No hepato-splenomegaly , or palpable masses. No guarding. Bowel sounds present. Incontinent of moderate amount of liquid brown stool GENITOURINARY: Without palpable bladder distension. Ariza catheter in place with clear yellow urine MUSCULOSKELETAL: Extremities without clubbing, cyanosis, + 1-2 soft pitting edema. No joint tenderness or effusion noted. No calf tenderness. No mottling or clubbing. R calf with large wound with full thickness skin loss + purulent discharge LYMPHATICS: No palpable cervical or supraclavicular adenopathy. R hip appears to be dislocated with inward rotation, ROM very painful NEUROLOGICAL: Awake and alert. Follows commands. Speech impaired PSYCHIATRIC: anxious, tearful 2/2 pain Laboratory Laboratory Tests Test 12/26/16 12/27/16 15:55 03:15 Hemoglobin 9.9 9.5 Hematocrit 29.9 29.1 White Blood Count 22.1 Red Blood Count 3.17 Mean Corpuscular Volume 91.9 Mean Corpuscular Hemoglobin 30.1 Mean Corpuscular Hemoglobin 32.7 Concent Red Cell Distribution Width 16.7 Platelet Count 322 Mean Platelet Volume 6.8 Neutrophils (%) (Auto) 85.1 Lymphocytes (%) (Auto) 5.0 Monocytes (%) (Auto) 8.4 Eosinophils (%) (Auto) 1.1 Basophils (%) (Auto) 0.4 Neutrophils # (Auto) 18.8 Lymphocytes # (Auto) 1.1 Monocytes # (Auto) 1.8 Eosinophils # (Auto) 0.3 Basophils # (Auto) 0.1 CBC Comment AUTO DIFF Differential Total Cells 100 Counted Neutrophils % (Manual) 80 Band Neutrophils % 1 Lymphocytes % 8 Monocytes % 8 Basophils % 1 Neutrophils # (Manual) 18.3 Myelocytes 2 Differential Comment FINAL DIFF MANUAL Platelet Estimate NORMAL Platelet Morphology Comment NORMAL Polychromasia 2.5 Basophilic Stippling FAINT Sodium Level 138 Potassium Level 3.6 Chloride Level 98 Carbon Dioxide Level 32.8 Anion Gap 7 Blood Urea Nitrogen 17 Creatinine 2.26 Estimat Glomerular Filtration 20 Rate Random Glucose 122 Calcium Level 8.8 Phosphorus Level 1.3 Magnesium Level 1.8 Total Bilirubin 0.7 Aspartate Amino Transf 17 (AST/SGOT) Alanine Aminotransferase 10 (ALT/SGPT) Alkaline Phosphatase 103 Total Protein 6.1 Albumin 2.6 Date/Time Procedure Status Source Growth 12/24/16 13:45 Gram Stain - Final Complete Bronchial Washings Left Upper Lobe 12/24/16 13:45 Bronchial Culture - Final Complete Bronchial Washings Left Upper Lobe MODERATE GROWTH NORMAL RESPIRATORY RODRIGUE 12/24/16 13:45 Fungal Smear - Final Resulted Bronchial Washings Left Upper Lobe NO FUNGAL ELEMENTS SEEN. 12/24/16 13:45 Fungal Culture Resulted Bronchial Washings Left Upper Lobe Pending 12/24/16 13:45 Acid Fast Stain - Final Resulted Bronchial Washings Left Upper Lobe NO ACID FAST BACILLI SEEN 12/24/16 13:45 Mycobacterial Culture Resulted Bronchial Washings Left Upper Lobe Pending Result Diagram: 12/27/16 0315 12/27/16 0315 Imaging Last Impressions Chest X-Ray 12/27/16 0600 Signed Impressions: Service Date/Time: Tuesday, December 27, 2016 04:15 - CONCLUSION: Persistent volume loss and consolidation left lung base. Right lung remains clear. Naun Nash MD Upper Extremity Ultrasound 12/24/16 0000 Signed Impressions: Service Date/Time: Saturday, December 24, 2016 14:41 - CONCLUSION: Normal examination. Benjamin Oquendo MD Chest CT 12/24/16 0000 Signed Impressions: Service Date/Time: Saturday, December 24, 2016 12:00 - CONCLUSION: The left main bronchus is filled with soft tissue density could be secretions with mucous plugging versus neoplastic process and the entire left lung is consolidated/collapsed with a tiny left pleural effusion. Rigoberto Valencia MD Hip and Pelvis X-Ray 12/15/16 0000 Signed Impressions: Service Date/Time: Thursday, December 15, 2016 05:00 - CONCLUSION: Intact total hip prosthesis for technique and extensive stool and osteopenia as above. Rigoberto Valencia MD Head CT 12/15/16 0000 Signed Impressions: Service Date/Time: Thursday, December 15, 2016 04:53 - CONCLUSION: Chronic and small vessel ischemic changes without any evidence for acute hemorrhage or mass effect. Rigoberto Valencia MD Cervical Spine CT 12/15/16 0000 Signed Impressions: Service Date/Time: Thomas, December 15, 2016 04:53 - CONCLUSION: Neural foramina compromise right C3-4, right C5-C6 and bilateral lateral recess compromise C5- 6. K. Aleks Valencia MD Assessment and Plan Assessment and Plan Multiple med problems and poor functional status Infected R calf wound Sacral decub, necrotic Persistent L lung collapse 2/2 mucus plugging Abx associated diarrhea ? R hip dislocation Leukocytosis Malnourishment suspected Non cryptococcal yeast in BAL - doubt clin significance - chk stool for C.diff - cont zosyn for now - X ray of R hip - consult wound care Discussed Condition With dgtr at b/s Junie Torres MD Dec 27, 2016 13:15
--- NOTE | 2016-12-27 14:26 | HHI.FPPN ---
Subjective Remarks Patient lying in bed, no acute distress. Daughter is by the bedside. Patient is teary this morning while talking about goals of treatment. She is answering questions appropriately but is difficult to understand at times. Daughter is amenable to a family meeting with palliative care today to further discuss goals of treatment. Patient currently has on nasal cannula and is not having respiratory distress. Arm swelling on right present but is decreased from before. She continues to have significant ulcers. (Albaro Julio MD R2) Objective Vitals Vital Signs Date Time Temp Pulse Resp B/P Pulse Ox O2 Delivery O2 Flow Rate FiO2 12/27/16 08:25 99 Nasal Cannula 2.00 12/27/16 08:00 111 12/27/16 08:00 98.3 111 24 100/57 93 12/27/16 06:00 106 12/27/16 04:00 98.2 110 28 110/61 100 12/27/16 04:00 110 12/27/16 02:00 97 12/27/16 00:00 107 12/27/16 00:00 98.3 107 24 115/76 100 12/26/16 22:00 105 12/26/16 21:21 20 12/26/16 20:02 99 Nasal Cannula 2.00 12/26/16 20:00 98.5 113 26 101/63 100 12/26/16 20:00 113 12/26/16 18:00 114 12/26/16 16:00 116 12/26/16 16:00 97.9 116 35 108/55 100 I/O 12/26/16 12/26/16 12/26/16 12/27/16 12/27/16 12/27/16 07:00 15:00 23:00 07:00 15:00 23:00 Intake Total 210 ml 654 ml 409 ml 379 ml Output Total 0 ml 2000 ml 0 ml 0 ml 0 ml Balance 210 ml -1346 ml 409 ml 379 ml 0 ml IV Total 0 ml 362 ml 142 ml 127 ml Tube Feeding 180 ml 232 ml 237 ml 222 ml Other 30 ml 60 ml 30 ml 30 ml Output Urine Total 0 ml 0 ml 0 ml 0 ml Tube Feeding Residual Discard 0 ml 0 ml 0 ml Hemodialysis 2000 ml # Bowel Movements 0 3 0 1 (Albaro Julio MD R2) Result Diagram: 12/27/1631412/27/16314 Objective Remarks GENERAL: Elderly white female. Awake with NC in place. No acute distress. Answers questions appropriately. Speaks in low weak voice. SKIN: Pallor. Stage 2-3 sacral decubitus ulcer (dressing changed 12/14, sees wound care), stage 2-3 pressure ulcer R posterior calf, healing. Skin abrasion over L anterior warren. Several bruises over shins and forearms in various stages of healing. Severe edema right forearm and hand, but improved from before. CARDIOVASCULAR: Normal rate, irregularly irregular rhythm. Normal S1/S2. No MRG RESPIRATORY: Decreased breath sounds in the left lower lung. Poor inspiratory effort. Mild crackles b/l lung bases. ABDOMEN: Soft, non-distended, non-tender. MUSCULOSKELETAL: Extremities without clubbing, cyanosis. Edema as noted above. NEURO: Awake, alert. Responds intermittently to yes/no questions. Does not vocalize. Procedures Hemodialysis - Sun/ur/Sat schedule Bianchi-endoscopy - 12/18/16 Tracheal intubation, mechanical ventilation (Albaro Julio MD R2) Date of Insertion: Dec 24, 2016 Line: Central Venous Catheter Side: Left Location: Internal, Jugular (Albaro Julio MD R2) A/P Assessment and Plan 89 yo female with PMH of CHF with last echo 2014 showing EF 35%, ESRD on dialysis TTS, CAD s/p stenting, sacral decubitus ulcers presenting after being found on the ground at [facility]. Sent to the ED for evaluation and was admitted for altered mental status and urinary tract infection. Discharge Planning Unclear; pending stabilization of medical issues and discussion with palliative care team. Planning for meeting with son and daughter and palliative care today. (Albaro Julio MD R2) Attending Attestation Patient seen and examined. Case reviewed and discussed with the resident team. Agree with plan of care as discussed with me and documented in the resident note. (No Darden MD) Problem List: (1) Palliative care status Status: Acute Plan: Palliative care on board, continuing discussion about goals of treatment. Palliative care met with patient today (12/27/2016) along with son and daughter, who are the patient's POA's. Per discussion with palliative care, patient and family want to continue with aggressive care, as she still considers herself to have quality of life and wants to continue living. She wants intubation and ACLS if required, but refuses chest compressions and shock. - Continue ongoing dialogue about goals of care. - Requires respiratory therapy for continued atelectasis, physical therapy when medically stable. (2) Atelectasis of left lung Status: Acute Plan: Severe atelectasis of the left lower lung that improved with bronchoscopy and removal of mucous plugs but then returns shortly after. - Continue positive pressure therapies. - Attempt to sit patient up as much as possible. - Bronchoscopy if needed as last resort to remove mucous plugs. (3) Streptococcal infection group D enterococcus Status: Acute Plan: Wound culture showing Group D enterococcus, elevated white count, no fevers. Blood culture no growth (final) - Continue Zosyn, started 12/22 - Monitor white count, vital signs - Wound care as below - Infectious disease on board. (4) Acute upper GI bleed Status: Resolved Plan: GIB noted by dropping H/H, large bloody BM on 12/18. EGD 12/18 showed bleeding peptic ulcers, now s/p cauterization. H/H now stable - GI consulted, appreciate recommendations - S/p EGD with cautery of peptic ulcers - PPI = 40 mg Protonix IV BID - S/p 6 units PRBC, 2 units FFP - Palliative care consulted, appreciate assistance - Alternative code status = re-intubation okay, no chest compressions or shock, ACLS drugs okay - Would qualify for hospice given advanced age and medical comorbidities, will be ongoing discussion with family - Nutrition consult for dietary recommendations, currently getting tube feedings - Speech therapy to evaluate swallow function for possible progression of diet once more stable - Resumed aspirin, holding Plavix (5) Urinary tract infection Status: Resolved Plan: UA with leuk esterase and bacteria (catheterized sample). Leukocytosis but no fevers. UCx showing contaminant (50-100k mixed GPC). - s/p Levaquin dosed renally (500 mg Q48H), s/p coverage of 5 days with fluoroquinolone (cipro day 1, Levaquin x2 doses with each dose covering 48 hours ) (6) Altered mental status Status: Resolved Plan: Presented with altered mental status due to UTI prior to development of GIB. S/p treatment with Levaquin. Currently on Zosyn as above for leukocytosis with unclear etiology. Mental status improving post-extubation. EKG without tachycardia, ST-T wave changes; AFib with normal HR EEG showing no evidence of seizure disorder Troponins/EKG reassuring ECHO done, EF of 55 to 60% UCx 50-100k CFU/mL mixed GPC - Has been getting Tylenol 1 g IV Q6H for pain, on discharge can consider scheduling 650 mg PO every 6-8 hours - Antibiotics as above for leukocytosis - Delirium prevention: sunlight, no sleeping during the day, hold sedating medications (7) CHF, chronic Status: Chronic Plan: EF 55-60%, no signs of pulmonary edema on exam - Beta rock currently on hold - Lasix PRN for fluid overload (8) ESRD (end stage renal disease) on dialysis Status: Chronic Plan: Creatinine at baseline. Hemodialysis on a Sunday, , Sunday schedule. - Nephrology on board, appreciate recs - Continue phosphate binder, Ca, vitamin D - Continue outpatient dialysis - Renally dose medicines, avoid nephrotoxic agents (9) Anemia of renal disease Status: Chronic Plan: Anemia of chronic disease Serum iron 22 TIBC 150 % saturation ~15 - Nephrology consulted, appreciate recs - Venofer as ordered by nephrology (daily) (10) Sacral decubitus ulcer Status: Chronic Plan: Stable from previous descriptions in outpatient setting Wound culture obtained by [facility] due to leukocytosis - F/u wound culture - Consult wound nurse, appreciate recs - Rotate patient every 2 hours - Santyl dressing changes daily on sacral ulcer, not on other ulcers - On discharge, continue treatment of wounds per patient's wound care physician (11) Essential hypertension Status: Chronic Plan: Borderline low blood pressures - Holding Coreg (12) Coronary artery disease Status: Chronic Plan: S/p CABG - Resumed aspirin - Holding plavix - Continue statin (13) History of right hip hemiarthroplasty Status: Chronic Plan: No abnormalities on X-ray - Pain management (14) Paroxysmal atrial fibrillation Status: Chronic Plan: Had been on Coumadin previously, but due to recent bleed requiring hospital visit this was discontinued. - Continue rate control with beta rock - Resumed aspirin - Holding Plavix (15) Dementia Status: Chronic Plan: Dementia, at high risk for delirium - Delirium precautions (16) FEN/PPX Status: Acute Plan: Fluids: use with caution due to fluid overload Elecs: Monitor and replete PRN Nutrition: Very dry mouth, not swallowing well, currently NPO with NG tube in place. DVT: Held due to GIB dw Dr. Darden (Albaro Julio MD R2) Problem Qualifiers (1) Urinary tract infection: Qualified Code: N30.00 - Acute cystitis without hematuria (2) Altered mental status: Qualified Code: R41.0 - Delirium (3) CHF, chronic: Qualified Code: I50.9 - Chronic congestive heart failure, unspecified congestive heart failure type (4) Sacral decubitus ulcer: Qualified Code: L89.159 - Decubitus ulcer of sacral region, unspecified ulcer stage (5) Coronary artery disease: Qualified Code: I25.10 - Coronary artery disease involving crow coronary artery of crow heart, angina presence unspecified (6) Dementia: Qualified Code: 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
--- NOTE | 2016-12-27 15:46 | HHI.CCPN ---
Subjective Remarks/Hospital Course Hospital Course: This is an 89yF with history of congestive heart failure with a prior EF of 35% , end-stage renal disease on HD who initially presented to the hospital with urinary tract infection. She was actually scheduled to be discharged today when she had a significant hemoglobin drop from 7.7 --> 6.3, rechecked and was down to 5. At that time, she did not have any overt signs of bleeding. However , this afternoon she had a large melanotic bowel movement and became hemodynamically unstable with SBP in the 80s, and felt very fatigued. A rapid response was called. I immediately evaluated the patient. She was diaphoretic and hypotensive. very pale appearing. We immediately ordered 2 units uncrossmatched emergency release blood from the blood bank, and we transferred her emergently to the ICU. At this point, she also had no iv access. Vascular access team was at bedside and placed an 18g piv for us. I additionally placed a second 18g piv so we could maintain 2 large bore piv access at all times. Unfortunately, due to the hemodynamically unstable nature of the patient, additional information is unobtainable from the patient. The family medicine team did talk with her son and medical decision maker, and he stated that he wanted to keep the DNR status in place. He did say that transient intubation for a GI procedure would be acceptable for her as long as long-term ventilation was not considered. We will proceed with medically aggressive care with DNR in place and intubation only for procedures. 12/19: GI secured multiple gastric ulcers with cauterization and epinephrine. intubated for airway protection and left intubated to watch clinical course. this morning received 2 units prbc with appropriate response. IHD today. I had a long talk with her daughter, where I reiterated that the decision by the family to intubate the patient for this one procedure is a reasonable one, but if she did not extubate on pathway, or if she extubated and failed from a pulmonary standpoint, the entire family agrees that the patient was strict in her wishes to remain DNR/DNI, and a re-intubation for pulmonary reasons was likely against her wishes. 12/20: Patient remains intubated, sedated with propofol. Wakes up follows commands. WBC improving 23.9 to 20, Hb stable. Chest x-ray pending 12/21: Patient is lethargic and week but wakes up and follows commands. Hypoglycemic with blood sugar in 50s, receiving orange juice through OG tube 12/22: s/p Bronchoscopy yesterday with thick yellow mucus plug removed L main bronchus with re expansion of lung. Tolerating CPAP. Plan is to extubate today. 12/23: Currently on 3 L nasal cannula. Advanced to a pured diet with thickened liquids. Afebrile. Positive BM. On D10 secondary hyperglycemia 12/24: Left lung continues to collapse. Saturating 95 percent on 2 L saturation probe except. Very poor appetite. -3 L of hemodialysis yesterday. 12/25: Status post intubation and bronchoscopy with thick white mucous plug and left mainstem. Post bronchoscopy x-ray revealed reexpansion of lung. AM x-ray pending. Noted low phosphorus currently been replaced. Resting comfortably in bed. 12/26: Extubated yesterday without complication. Currently afebrile. Noted drop in hemoglobin. Recheck this afternoon. Currently undergoing hemodialysis. Left lung remains expanded. Subjective: 12/27: Remains extubated on 3 L nasal cannula. Tachycardic. Dobbhoff tube placed. Hemoglobin stable. Objective Vital Signs Date Time Temp Pulse Resp B/P Pulse Ox O2 Delivery O2 Flow Rate FiO2 12/27/16 14:00 128 12/27/16 12:00 98.4 30 118/59 95 12/27/16 08:25 Nasal Cannula 2.00 12/25/16 12:00 30 Intake and Output 12/26/16 12/26/16 12/27/16 08:00 16:00 00:00 Intake Total 210 ml 654 ml 409 ml Output Total 0 ml 2000 ml 0 ml Balance 210 ml -1346 ml 409 ml Result Diagram: 12/27/16 0315 12/27/16 0315 Other Results Microbiology Date/Time Procedure Status Source Growth 12/24/16 13:45 Gram Stain - Final Complete Bronchial Washings Left Upper Lobe 12/24/16 13:45 Bronchial Culture - Final Complete Bronchial Washings Left Upper Lobe MODERATE GROWTH NORMAL RESPIRATORY DANIEL 12/24/16 13:45 Fungal Smear - Final Resulted Bronchial Washings Left Upper Lobe NO FUNGAL ELEMENTS SEEN. 12/24/16 13:45 Fungal Culture Resulted Bronchial Washings Left Upper Lobe Pending 12/24/16 13:45 Acid Fast Stain - Final Resulted Bronchial Washings Left Upper Lobe NO ACID FAST BACILLI SEEN 12/24/16 13:45 Mycobacterial Culture Resulted Bronchial Washings Left Upper Lobe Pending Imaging Last Impressions Chest X-Ray 12/27/16 0600 Signed Impressions: Service Date/Time: Tuesday, December 27, 2016 04:15 - CONCLUSION: Persistent volume loss and consolidation left lung base. Right lung remains clear. Naun Nash MD Upper Extremity Ultrasound 12/24/16 0000 Signed Impressions: Service Date/Time: Saturday, December 24, 2016 14:41 - CONCLUSION: Normal examination. Benjamin Oquendo MD Chest CT 12/24/16 0000 Signed Impressions: Service Date/Time: Saturday, December 24, 2016 12:00 - CONCLUSION: The left main bronchus is filled with soft tissue density could be secretions with mucous plugging versus neoplastic process and the entire left lung is consolidated/collapsed with a tiny left pleural effusion. Rigoberto Valencia MD Hip and Pelvis X-Ray 12/15/16 0000 Signed Impressions: Service Date/Time: Thursday, December 15, 2016 05:00 - CONCLUSION: Intact total hip prosthesis for technique and extensive stool and osteopenia as above. Rigoberto Valencia MD Head CT 12/15/16 0000 Signed Impressions: Service Date/Time: Thursday, December 15, 2016 04:53 - CONCLUSION: Chronic and small vessel ischemic changes without any evidence for acute hemorrhage or mass effect. Rigoberto Valencia MD Cervical Spine CT 12/15/16 0000 Signed Impressions: Service Date/Time: Thursday, December 15, 2016 04:53 - CONCLUSION: Neural foramina compromise right C3-4, right C5-C6 and bilateral lateral recess compromise C5- 6. Rigoberto Valencia MD Objective Remarks GENERAL: 89-year-old female, critically ill currently resting in bed on nasal cannula SKIN: Warm and dry. Obvious ecchymosis bilateral upper extremities with multiple skin tears bilateral lower extremities HEAD: Atraumatic. Normocephalic. EYES: Pupils equal and round about 2 mm bilaterally and reactive. No scleral icterus. No injection or drainage. ENT: No nasal bleeding or discharge. Mucous membranes pink and moist. NECK: Trachea midline. No JVD. CARDIOVASCULAR: Tachycardia, normal rhythm. S1, S2. No S4. Without murmur RESPIRATORY: Poor aeration/breath sounds throughout left lung amaral. Positive end expiratory wheeze.. GASTROINTESTINAL: Abdomen soft, non-tender, nondistended. Active bowel sounds. MUSCULOSKELETAL: Extremities with trace lower extremity edema. Upper extremity left greater than right edema and ecchymosis. Right AV fistula positive thrill. NEUROLOGICAL: Cranial nerves II through XII grossly intact. Moves all 4 extremities spontaneously. No obvious cranial nerve deficits. Date of Insertion: Dec 24, 2016 Line: Central Venous Catheter Side: Left Location: Internal, Jugular A/P Assessment and Plan Neuro/Psych: Macular degeneration History of CVA Dementia Acetaminophen for fever/pain Holding Desyrel 50 at night for depression. Continue latanoprost 0.005% 1 drop each eye at night for macular degeneration CV: Chronic systolic ejection failure ejection fraction 35% History of hypertension Dyslipidemia History of paroxysmal atrial fibrillation Peripheral vascular disease Disease with stent placement question elisa Holding Coreg 25 twice a day, Norvasc 5 mg daily for hypertension. Holding Plavix 75 mg by mouth daily in light of gastric ulcer Okayed resume aspirin 81 mg daily for A. fib by GI Continue Pravachol 40 mg by mouth daily for dyslipidemia Resp: Recent history of left mucous plugging Respiratory insufficiency Nasal cannula to maintain saturations greater than equal to 92% 3 currently on 3 L nasal cannula Incentive spirometry while awake Bronchodilator therapy every 4 hours and as needed A cappella/PEP/EZ PAP every 4 hours with DuoNeb therapies Follow-up chest x-ray in a.m. 3% hypertonic saline every 4 hours thin secretions with breathing treatments GI: Upper GI bleed secondary to peptic ulcer Gastroesophageal reflux disease S/P EGD with cauterization (12/18/16) ----> bleeding ulcer antrum controlled with injection epinephrine and ablation. Currently Protonix 40 mg IV twice a day MiraLAX daily for bowel regimen Tube feeds initiated with Nepro goal 40 cc an hour. With Marshall 1 packet twice a day. Patient pulled out NG tube. Placing Dobbhoff currently. : Ariza not indicated/anuric Endo: Hypothyroidism Hypoglycemia Continue Synthroid at 112 mcg by mouth daily Sliding-scale insulin with Accu-Cheks to maintain euglycemia. Renal: End-stage renal disease on hemodialysis Sunday//Sunday Status post hemodialysis yesterday -3 L Holding PhosLo 667 3 times a day with low phosphorus Heme: Leukocytosis Normocytic anemia Monitor CBC daily. Follow trends. Status post trans fusion 6 PRBCs, 2 FFP this admission Leukemoid versus infectious for elevated WBC ID: Group D enterococcus from back sacral decubitus ulcer wound Continue Zosyn. Infectious disease consulted by primary team. C. difficile been checked. Pertinent cultures 12/15: Blood cultures 2 - no growth 12/15 - urine - negative 12/21 - blood cultures 2 - no growth 12/21 - bronchoscopy - no growth/negative AFB/fungal with yeast 12/22 - mouth - no growth 12/22 - wound -enterococcus faecalis 12/24 - bronchoscopy -no growth MSK: Osteoporosis/osteoarthritis PT/OT evaluate and treat Continue vitamin D3 2000 units daily FEN: Hypophosphatemia Hypomagnesium Hypopotassemia Recheck phosphorus this AM. Received 30 mmol sodium phosphate 1 now Replace electrolytes as clinically indicated MSK: Check x-ray right hip. Not a surgical candidate if dislocated. Access - Utilize peripheral IV. Central line if indicated Prophylaxis - GI - Protonix twice a day - DVT - SCD/chemical prophylaxis currently on hold with recent gastric ulcer bleeding Critical Care: The total critical care time was 35 minutes. Time to perform other separately billable procedures was not included in the critical care time. Discussed with Cristóbal Richey (son and health co-health care POA) [phone]. Stated that in discussion with sister if this patient will require reintubation/CPR in future, notify him or sister and they will institute comfort measures at the time if the patient is unable to make her own decisions. Aram Strickland MD Dec 27, 2016 15:46
--- NOTE | 2016-12-27 16:13 | RADRPT ---
EXAM DATE/TIME: 12/27/2016 15:22 [facility] COMPARISON: No previous studies available for comparison. INDICATIONS : Evaluate for DOBHOFF placement. MEDICAL HISTORY : None. SURGICAL HISTORY : None. ENCOUNTER: Initial ACUITY: 1 day PAIN SCORE: Non-responsive. LOCATION: Abdomen FINDINGS: Single image centered to the mid and upper abdomen demonstrates the metallic tip feeding tube in the midabdomen to the left of midline, presumably still within the stomach. There is consolidation in th e left lower lobe. CONCLUSION: Dobbhoff catheter tip appears to be within the stomach. Shadi Weber MD on December 27, 2016 at 16:11 Board Certified Radiologist. This report was verified electronically.
--- NOTE | 2016-12-27 16:22 | RADRPT ---
EXAM DATE/TIME: 12/27/2016 15:33 [facility] COMPARISON: No previous studies available for comparison. INDICATIONS : Patient complains of right hip pain. MEDICAL HISTORY : None. SURGICAL HISTORY : Rt hip total arthroplasty. ENCOUNTER: Initial ACUITY: 1 day PAIN SCORE: Non-responsive. LOCATION: Right Hip FINDINGS: There is an superior dislocation of the right hip. CONCLUSION: Superior dislocation of the hip arthroplasty on the right. Henry Del Valle MD FACR on December 27, 2016 at 16:20 Board Certified Radiologist. This report was verified electronically.
[2016-12-27 16:53] LABS: C. DIFF EPI 027 PRESUMPTIVE NEGATIVE (NEGATIVE); C. DIFF TOXIN PCR NEGATIVE (NEGATIVE)
[2016-12-27] MEDS ORDERED: SODIUM PHOSPHATE INJ 30 MMOL in SODIUM CHLOR 0.9% 250 ML INJ 250 ML IV ONE (17:00)
--- NOTE | 2016-12-27 17:32 | HHI.NPPN ---
Subjective History of Present Illness The patient is am 89 yo [place] female who is known to our services for ESRD on HD. She was brought to this facility as she was found on the floor of her NH. She is altered at the present, so no other information can be gathered. She has multiple abrasions on her LEs and her mouth is covered in blood. Uncertain if she bit her tongue. Imaging and labs reviewed. Appears she may have a UTI. Last HD yesterday---on TTS schedule. Interval History No verbal complaints. Review of Systems General General Remarks Not obtainable today Objective Data Data 12/26/16 12/27/16 19:00 07:00 Intake Total 654 ml 788 ml Output Total 2000 ml 0 ml Balance -1346 ml 788 ml IV Total 362 ml 269 ml Tube Feeding 232 ml 459 ml Other 60 ml 60 ml Output Urine Total 0 ml 0 ml Tube Feeding Residual Discard 0 ml 0 ml Hemodialysis 2000 ml # Bowel Movements 3 1 Vital Signs Date Time Temp Pulse Resp B/P Pulse Ox O2 Delivery O2 Flow Rate FiO2 12/27/16 14:00 128 12/27/16 12:00 98.4 109 30 118/59 95 12/27/16 12:00 109 12/27/16 10:00 110 12/27/16 08:25 99 Nasal Cannula 2.00 12/27/16 08:00 111 12/27/16 08:00 98.3 111 24 100/57 93 12/27/16 06:00 106 12/27/16 04:00 98.2 110 28 110/61 100 12/27/16 04:00 110 12/27/16 02:00 97 12/27/16 00:00 107 12/27/16 00:00 98.3 107 24 115/76 100 12/26/16 22:00 105 12/26/16 21:21 20 12/26/16 20:02 99 Nasal Cannula 2.00 12/26/16 20:00 98.5 113 26 101/63 100 12/26/16 20:00 113 12/26/16 18:00 114 -: 12/27/16 0315 12/27/16 0315 Physical Exam General Appearance: No Acute Distress, Malnourished Appearance Remarks Very frail in appearance. Wasting of musculature of all limbs. Eyes Eye Exam: Sclera White Neck Neck Exam: Trachea Midline Pulmonary Resp Exam: Clear Bilaterally, Breath Sounds Equal, No Distress Cardiology CV Exam: Regular Gastrointestinal/Abdomen GI Exam: Soft, Non-Tender Integumentary Skin Exam: Clear, Warm Extremeties Extremities Exam: Moderate Edema (improved in legs. Still moderate in RUE and 1+ in bilat feet) Neurologic Neuro Exam: Moving All Extremities, Sedated Assessment/Plan Problem List: (1) ESRD (end stage renal disease) on dialysis Plan: Continue hemodialysis TTS. I advised the daughter that even if she is able to get through this acute illness and she will likely be severely debilitated with ongoing problems in the future. Continue dialysis as long as family desires. My opinion is that hospice will have to be considered without dialysis at some point in the not too distant future when it no longer appears to be contributing significantly to her quality of life for her remaining time as discussed with the family previously prior to this admission. Medications should be adjusted for the patient's ESRD. Avoid gadolinium (2) Altered mental status (3) Urinary tract infection Plan: Abx deferred to primary (4) Failure to thrive in adult Plan: Repeat phos level tomorrow and supplement if needed. Ongoing these last several months. Even if the patient improves enough to be discharged [id number] and overall clinical condition will likely be very poor given severe debilitation, dementia, medical comorbidities and advanced age.. Patient has been requesting to come off the dialysis machine early as an outpatient during her treatment but still indicated recently that she wanted to continue dialysis. She was advised however by being noncompliant with her dialysis treatments her overall prognosis is significantly reduced. (5) Anemia of renal disease Plan: Continue Epogen. Problem Qualifiers (1) Altered mental status: Qualified Code: R41.0 - Delirium (2) Urinary tract infection: Qualified Code: N30.00 - Acute cystitis without hematuria Pio Morton MD Dec 27, 2016 17:32
[2016-12-27] MEDS: LATANOPROST 0.005% OPHT SOLN 2.5 ML BTL EACH EYE SCH (20:12)
[2016-12-28] VITALS (14 sets, daily range): BP systolic 94–167; BP diastolic 55–77; PULSE 106–112; RESP 21–24; TEMP 97.8–99.3; O2SAT 94–100
[2016-12-28] MEDS: RESP: SODIUM CHLORIDE 3% 4 ML NEB NEB SCH ×3 (03:16→10:59)
[2016-12-28] MEDS: RESP: ALBUTEROL 2.5 MG/IPRATROPIUM 0.5 MG NEB (SCH) NEB ×6 (03:17→22:34)
[2016-12-28] MEDS: PIPERACIL-TAZO 2.25 GM PREMIX 50 ML IV SCH ×2 (03:36→13:28)
[2016-12-28] MEDS: guaiFENesin SOLUTION 200 MG/10 ML CUP PO SCH ×2 (03:36→14:00)
[2016-12-28] MEDS: LEVOTHYROXINE SODIUM 112 MCG TAB PO SCH (03:36)
--- NOTE | 2016-12-28 05:01 | RADRPT ---
EXAM DATE/TIME: 12/28/2016 03:00 [facility] COMPARISON: CHEST SINGLE AP, December 27, 2016, 4:15. INDICATIONS : Shortness of breath, possible pulmonary disease. MEDICAL HISTORY : Stroke. Hypercholesterolemia. Congestive heart failure. SURGICAL HISTORY : Lobectomy. Valve replacement ENCOUNTER: Subsequent ACUITY: 1 week PAIN SCORE: Non-responsive. LOCATION: Bilateral chest FINDINGS: A single view of the chest demonstrates near-complete opacification of the left hemithorax. Surgical clips overlie the left hilum. There numerous intact sternal wires. Right lung is relatively clear. Va scular stent and a left IJ central line are both in good position. The cardiomediastinal contours are unremarkable. Osseous structures are intact. CONCLUSION: Continued near-complete opacification of left lung increased since the . Clips and wires are stab le in position. Right lung remains clear Naun Nash MD on December 28, 2016 at 4:58 Board Certified Radiologist. This report was verified electronically.
[2016-12-28 06:29] LABS: AUTOMATED NEUTROPHIL # 16.7 TH/MM3 (1.8-7.7); BASOPHIL # 0.1 TH/MM3 (0-0.2); BASOPHIL % 0.6 % (0.0-2.0); EOSINOPHIL # 0.3 TH/MM3 (0-0.4); EOSINOPHIL % 1.5 % (0.0-4.0); HEMATOCRIT 28.2 % (35.0-46.0); LYMPH % 5.1 % (9.0-44.0); MEAN CELL VOLUME 92.5 FL (80.0-100.0); MEAN CORPUSCULAR HEMOGLOBIN 29.7 PG (27.0-34.0); MEAN CORPUSCULAR HGB CONC 32.1 % (32.0-36.0); MONO % 7.7 % (0.0-8.0); NEUT % 85.1 % (16.0-70.0); PLATELET COUNT 328 TH/MM3 (150-450); RED BLOOD COUNT 3.05 MIL/MM3 (4.00-5.30); RED CELL DISTRIBUTION WIDTH 16.7 % (11.6-17.2); WHITE BLOOD COUNT 19.6 TH/MM3 (4.0-11.0)
[2016-12-28 06:31] LABS: HEMO FLAGS AUTO DIFF
[2016-12-28 06:53] LABS: BICARBONATE 31.3 MEQ/L (21.0-32.0); MAGNESIUM 1.8 MG/DL (1.5-2.5); POTASSIUM 3.5 MEQ/L (3.5-5.1)
[2016-12-28 07:17] LABS: BANDS 1 % (0-6); EOSINOPHILS 2 % (0-4); MYELOCYTES 6 % (0-0); NEUTROPHIL # MANUAL DIFF 16.7 TH/MM3 (1.8-7.7); POLYS (SEG NEUTROPHILS) 78 % (16-70); WBC DIFF SAMPLE 100
[2016-12-28 07:18] LABS: PLATELET ESTIMATE SMEAR NORMAL (NORMAL); PLATELET MORPHOLOGY NORMAL (NORMAL); SCAN/DIFF FINAL DIFF MANUAL
[2016-12-28] MEDS: CHLORHEXIDINE 0.12% (ORAL KIT) 15 ML CUP MT SCH ×2 (08:00)
--- NOTE | 2016-12-28 08:15 | MB ---
cc: SUMA OSPINA M.D. DATE OF CONSULTATION 12/27/2016 REASON FOR CONSULTATION Right calf wound. REASON FOR CONSULTATION I have asked to see the patient for Dr. Torres with a calf wound on the right. It is unclear how long this has been present. I have been asked to see the patient for consideration of debridement. HISTORY OF PRESENT ILLNESS The patient is an 89-year-old female with congestive heart failure, end-stage renal disease on hemodialysis. The patient had acute blood loss anemia as well. PAST MEDICAL HISTORY 1. History of CVA. 2. Dementia. 3. Chronic systolic ejection failure with EF of 35%. 4. Hypertension. 5. Dyslipidemia. 6. Paroxysmal atrial fibrillation. 7. Respiratory insufficiency. 8. Upper GI bleed secondary to peptic ulcer. 9. GE reflux disease. 10. Hypothyroidism. 11. Leukocytosis. 12. Group D Enterococcus from the sacral wound. 13. Osteoporosis. 14. Osteoarthritis. 15. Hypomagnesemia. 16. Hypophosphatemia. PHYSICAL EXAMINATION GENERAL: Physical exam reveals a thin female who is uncomfortable. VITALS: BP 107/56, pulse 110, respirations 24, temperature 98.6, 95% saturation on 2 liters nasal cannula. CHEST: Occasional rhonchi. ABDOMEN: Soft. EXTREMITIES: I cannot palpate pulses in both feet. There is an approximately 6 x 6-cm wound on the right posterior calf with a Tegaderm over this. There are multiple other small skin breaks and tears on the leg. Both feet are edematous and I cannot palpate pulses distally. LABORATORY FINDINGS WBCs 22.1, platelets 322,000, BUN and creatinine 17 and 2.26. 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 PLAN 1. As I cannot palpate a pulse, I would recommend if aggressive treatment is to be undertaken, for the patient to undergo noninvasive vascular testing. My primary concern is that the patient would not heal from any debridement and has she has inadequate blood flow through her lower extremities and would likely end up with an amputation after debridement of these ulcers. 2. The Tegaderm dressing can be removed and the wound cleaned with peroxide and then have Betadine placed over it as the patient does not have an allergy to iodine. 3. I would not recommend surgical debridement of any kind at this point. We will see as needed. Suma Ospina MD MAF/SSB /11:15 PM /8:02 AM
[2016-12-28] MEDS ORDERED: DEXTROSE 50% IN WATER 50 ML SYRINGE ONE (08:43)
[2016-12-28] MEDS: PANTOPRAZOLE SODIUM 40 MG VIAL IV PUSH SCH ×2 (08:48→19:52)
[2016-12-28] MEDS: POLYETHYLENE GLYCOL 17 GM PKG PO SCH (08:48)
[2016-12-28] MEDS: ASPIRIN EC 81 MG TABEC PO SCH (08:48)
[2016-12-28] MEDS: CHOLECALCIFEROL (VIT D3) 1000 UNIT TAB PO SCH (08:49)
[2016-12-28] MEDS: VITAMIN B CMPLX/VITC/FOLIC AC CAP PO SCH (08:49)
[2016-12-28] MEDS: COLLAGENASE OINT 30 GM TUBE TOPICAL SCH (08:49)
[2016-12-28] MEDS: PRAVASTATIN SOD 40 MG TAB PO SCH (08:49)
[2016-12-28] MEDS: SODIUM CHLORIDE 0.9% FLUSH 10 ML FLUSH IVF SCH (09:00)
[2016-12-28] MEDS: NUTRITIONAL SUPPLEMENTS PO SCH (09:00)
[2016-12-28] MEDS: SODIUM CHLORIDE 0.9% FLUSH 10 ML FLUSH IV FLUSH SCH ×2 (09:00→19:50)
[2016-12-28] MEDS: GELATIN 12 MM/7 MM FOAM TOP PRN (09:05)
[2016-12-28] MEDS: EPOETIN ALFA 10,000 UNITS/ML VIAL IV SCH (09:06)
[2016-12-28] MEDS: SODIUM CHLOR 0.9% 1000 ML INJ 1,000 ML IV PRN (09:06)
[2016-12-28] MEDS: ALBUMIN HUMAN 25% 25 GM/100 ML BAGP IV PRN (09:16)
--- NOTE | 2016-12-28 10:21 | PD.ORT.PN ---
Subjective Subjective Remarks Domen[place] is [place] in [place] [facility] [place] confused and unable to answer questions appropriately. She is known to me from previous right femoral neck fracture treated with hemiarthroplasty. Objective Vitals Vital Signs Date Time Temp Pulse Resp B/P Pulse Ox O2 Delivery O2 Flow Rate FiO2 12/28/16 08:00 99.0 108 22 98/56 99 12/28/16 08:00 108 12/28/16 07:28 95 Nasal Cannula 2.00 12/28/16 06:00 110 12/28/16 04:00 99.3 109 21 105/56 100 12/28/16 04:00 109 12/28/16 02:00 109 12/28/16 00:00 112 12/28/16 00:00 98.6 112 22 105/58 94 12/27/16 22:00 111 12/27/16 20:00 110 12/27/16 20:00 98.6 110 24 107/56 95 12/27/16 19:57 97 Nasal Cannula 2.00 12/27/16 18:00 113 12/27/16 16:00 113 12/27/16 16:00 98.1 113 16 116/57 95 12/27/16 14:00 128 12/27/16 12:00 98.4 109 30 118/59 95 12/27/16 12:00 109 I/O 12/27/16 12/27/16 12/27/16 12/28/16 12/28/16 12/28/16 07:00 15:00 23:00 07:00 15:00 23:00 Intake Total 379 ml 245 ml 396 ml 46 ml Output Total 0 ml 0 ml 0 ml 0 ml Balance 379 ml 245 ml 396 ml 46 ml 0 ml IV Total 127 ml 32 ml 396 ml 46 ml Tube Feeding 222 ml 153 ml Other 30 ml 60 ml Output Urine Total 0 ml 0 ml Tube Feeding Residual Discard 0 ml 0 ml 0 ml # Voids 1 # Bowel Movements 1 2 0 1 Result Diagram: 12/28/1659912/28/16599 Imaging Last 24 hours Impressions Chest X-Ray 12/28/16599 Signed Impressions: Service Date/Time: December 03:00 - CONCLUSION: Continued near-complete opacification of left lung increased since the . Clips and wires are stable in position. Right lung remains clear Naun Nash MD Objective Remarks Right hip incision is well-healed. Her right leg is shortened and internally rotated. She has pain with any hip motion. There is no erythema or drainage from the incision. Assessment & Plan Assessment and Plan She has a dislocated right hip hemiarthroplasty. X-rays on December 15, 2016 revealed well-placed right hip hemiarthroplasty. The hip joint was reduced to that time. There Is no known history of trauma or injury that caused the hip dislocation. Treatment options were discussed with patient's daughter. At this point I would recommend attempted closed reduction of the hip in the operating room. If closed reduction is unsuccessful patient will need open reduction and possible revision orville-arthroplasty. Risk and benefits were discussed in depth with patient's daughter. Patient will need clearance from the medical team prior to surgery. Nothing by mouth after midnight for possible surgery tomorrow Victorino Woods MD Dec 28, 2016 10:21
--- NOTE | 2016-12-28 11:39 | HHI.CCPN ---
Subjective Remarks/Hospital Course Hospital Course: This is an 89yF with history of congestive heart failure with a prior EF of 35% , end-stage renal disease on HD who initially presented to the hospital with urinary tract infection. She was actually scheduled to be discharged today when she had a significant hemoglobin drop from 7.7 --> 6.3, rechecked and was down to 5. At that time, she did not have any overt signs of bleeding. However , this afternoon she had a large melanotic bowel movement and became hemodynamically unstable with SBP in the 80s, and felt very fatigued. A rapid response was called. I immediately evaluated the patient. She was diaphoretic and hypotensive. very pale appearing. We immediately ordered 2 units uncrossmatched emergency release blood from the blood bank, and we transferred her emergently to the ICU. At this point, she also had no iv access. Vascular access team was at bedside and placed an 18g piv for us. I additionally placed a second 18g piv so we could maintain 2 large bore piv access at all times. Unfortunately, due to the hemodynamically unstable nature of the patient, additional information is unobtainable from the patient. The family medicine team did talk with her son and medical decision maker, and he stated that he wanted to keep the DNR status in place. He did say that transient intubation for a GI procedure would be acceptable for her as long as long-term ventilation was not considered. We will proceed with medically aggressive care with DNR in place and intubation only for procedures. 12/19: GI secured multiple gastric ulcers with cauterization and epinephrine. intubated for airway protection and left intubated to watch clinical course. this morning received 2 units prbc with appropriate response. IHD today. I had a long talk with her daughter, where I reiterated that the decision by the family to intubate the patient for this one procedure is a reasonable one, but if she did not extubate on pathway, or if she extubated and failed from a pulmonary standpoint, the entire family agrees that the patient was strict in her wishes to remain DNR/DNI, and a re-intubation for pulmonary reasons was likely against her wishes. 12/20: Patient remains intubated, sedated with propofol. Wakes up follows commands. WBC improving 23.9 to 20, Hb stable. Chest x-ray pending 12/21: Patient is lethargic and week but wakes up and follows commands. Hypoglycemic with blood sugar in 50s, receiving orange juice through OG tube 12/22: s/p Bronchoscopy yesterday with thick yellow mucus plug removed L main bronchus with re expansion of lung. Tolerating CPAP. Plan is to extubate today. 12/23: Currently on 3 L nasal cannula. Advanced to a pured diet with thickened liquids. Afebrile. Positive BM. On D10 secondary hyperglycemia 12/24: Left lung continues to collapse. Saturating 95 percent on 2 L saturation probe except. Very poor appetite. -3 L of hemodialysis yesterday. 12/25: Status post intubation and bronchoscopy with thick white mucous plug and left mainstem. Post bronchoscopy x-ray revealed reexpansion of lung. AM x-ray pending. Noted low phosphorus currently been replaced. Resting comfortably in bed. 12/26: Extubated yesterday without complication. Currently afebrile. Noted drop in hemoglobin. Recheck this afternoon. Currently undergoing hemodialysis. Left lung remains expanded. Subjective: 12/27: Remains extubated on 3 L nasal cannula. Tachycardic. Dobbhoff tube placed. Hemoglobin stable. 12/28: Remains encephalopathic. Near complete opacification on L lung field. R hip is dislocated, will need GA for reduction. Will discuss with family about ortho recommendation. Objective Vital Signs Date Time Temp Pulse Resp B/P Pulse Ox O2 Delivery O2 Flow Rate FiO2 12/28/16 08:00 99.0 108 22 98/56 99 12/28/16 07:28 Nasal Cannula 2.00 12/25/16 12:00 30 Intake and Output 12/27/16 12/27/16 12/28/16 08:00 16:00 00:00 Intake Total 379 ml 245 ml 396 ml Output Total 0 ml 0 ml Balance 379 ml 245 ml 396 ml Result Diagram: 12/28/16 0600 12/28/16 06 Imaging Last Impressions Chest X-Ray 12/27/16 06 Signed Impressions: Service Date/Time: Tuesday, December 27, 2016 04:15 - CONCLUSION: Persistent volume loss and consolidation left lung base. Right lung remains clear. Naun Nash MD Upper Extremity Ultrasound 12/24/16 0000 Signed Impressions: Service Date/Time: Saturday, December 24, 2016 14:41 - CONCLUSION: Normal examination. Benjamin Oquendo MD Chest CT 12/24/16 0000 Signed Impressions: Service Date/Time: Saturday, December 24, 2016 12:00 - CONCLUSION: The left main bronchus is filled with soft tissue density could be secretions with mucous plugging versus neoplastic process and the entire left lung is consolidated/collapsed with a tiny left pleural effusion. Rigoberto Valencia MD Hip and Pelvis X-Ray 12/15/16 Signed Impressions: Service Date/Time: Thursday, December 15, 2016 05:00 - CONCLUSION: Intact total hip prosthesis for technique and extensive stool and osteopenia as above. Rigoberto Valencia MD Head CT 12/15/16 Signed Impressions: Service Date/Time: Thursday, December 15, 2016 04:53 - CONCLUSION: Chronic and small vessel ischemic changes without any evidence for acute hemorrhage or mass effect. Rigoberto Valencia MD Cervical Spine CT 12/15/16 Signed Impressions: Service Date/Time: Thursday, December 15, 2016 04:53 - CONCLUSION: Neural foramina compromise right C3-4, right C5-C6 and bilateral lateral recess compromise C5- 6. Rigoberto Valencia MD Objective Remarks GENERAL: 89-year-old female, critically ill currently resting in bed on nasal cannula SKIN: Warm and dry. Obvious ecchymosis bilateral upper extremities with multiple skin tears bilateral lower extremities HEAD: Atraumatic. Normocephalic. EYES: Pupils equal and round about 2 mm bilaterally and reactive. No scleral icterus. No injection or drainage. ENT: No nasal bleeding or discharge. Mucous membranes pink and moist. NECK: Trachea midline. No JVD. CARDIOVASCULAR: Tachycardia, normal rhythm. S1, S2. No S4. Without murmur RESPIRATORY: Poor aeration/breath sounds throughout left lung amaral. Positive end expiratory wheeze. Air entry diminished on L side GASTROINTESTINAL: Abdomen soft, non-tender, nondistended. Active bowel sounds. MUSCULOSKELETAL: Extremities with trace lower extremity edema. Upper extremity left greater than right edema and ecchymosis. Right AV fistula positive thrill. NEUROLOGICAL: Cranial nerves II through XII grossly intact. Moves all 4 extremities spontaneously. No obvious cranial nerve deficits. Date of Insertion: Dec 24, 2016 Line: Central Venous Catheter Side: Left Location: Internal, Jugular A/P Assessment and Plan Neuro/Psych: Macular degeneration History of CVA Dementia Acetaminophen for fever/pain Holding Desyrel 50 at night for depression. Continue latanoprost 0.005% 1 drop each eye at night for macular degeneration CV: Chronic systolic ejection failure ejection fraction 35% History of hypertension Dyslipidemia History of paroxysmal atrial fibrillation Peripheral vascular disease Disease with stent placement question elisa Holding Coreg 25 twice a day, Norvasc 5 mg daily for hypertension. Holding Plavix 75 mg by mouth daily in light of gastric ulcer Okayed resume aspirin 81 mg daily for A. fib by GI Continue Pravachol 40 mg by mouth daily for dyslipidemia Resp: Recurrent left lung atelectasis from mucous plugging Respiratory insufficiency Nasal cannula to maintain saturations greater than equal to 90% currently on 4 L nasal cannula Incentive spirometry while awake Bronchodilator therapy every 4 hours and as needed A cappella/PEP/EZ PAP every 4 hours with DuoNeb therapies Follow-up chest x-ray in a.m. 3% hypertonic saline every 4 hours thin secretions with breathing treatments Patient may need intubation -meeting with family and palliative care. I recommend full DNR and comfort measures if further deterioration GI: Upper GI bleed secondary to peptic ulcer Gastroesophageal reflux disease S/P EGD with cauterization (12/18/16) ----> bleeding ulcer antrum controlled with injection epinephrine and ablation. Currently Protonix 40 mg IV twice a day MiraLAX daily for bowel regimen Tube feeds initiated with Nepro goal 40 cc an hour. With Marshall 1 packet twice a day. Patient pulled out NG tube. Dobbhoff placement pending. : Ariza not indicated/anuric Endo: Hypothyroidism Hypoglycemia Continue Synthroid at 112 mcg by mouth daily Sliding-scale insulin with Accu-Cheks to maintain euglycemia. Renal: End-stage renal disease on hemodialysis Sunday//Sunday Getting hemodialysis today Holding PhosLo 667 3 times a day with low phosphorus Heme: Leukocytosis Normocytic anemia Monitor CBC daily. Follow trends. Status post trans fusion 6 PRBCs, 2 FFP this admission Leukemoid versus infectious for elevated WBC ID: Group D enterococcus from back sacral decubitus ulcer wound Continue Zosyn. Infectious disease consulted by primary team. C. difficile been checked. Pertinent cultures 12/15: Blood cultures 2 - no growth 4/7 - urine - negative 12/21 - blood cultures 2 - no growth 12/21 - bronchoscopy - no growth/negative AFB/fungal with yeast 12/22 - mouth - no growth 12/22 - wound -enterococcus faecalis 12/24 - bronchoscopy -no growth MSK: Osteoporosis/osteoarthritis R hip dislocation Appreciate orthopedics consult. The family wants to proceed patient will need hip reduction in OR Continue vitamin D3 2000 units daily FEN: Hypophosphatemia Hypomagnesium Hypopotassemia Recheck phosphorus this AM. Received 30 mmol sodium phosphate 1 now Replace electrolytes as clinically indicated Access - Utilize peripheral IV. Central line if indicated Prophylaxis - GI - Protonix twice a day - DVT - SCD/chemical prophylaxis currently on hold with recent gastric ulcer bleeding Critical Care: The total critical care time was 35 minutes. Time to perform other separately billable procedures was not included in the critical care time. Discussed with Aleks Richey (son and health co-health care POA) [phone]. Stated that in discussion with sister if this patient will require reintubation/CPR in future, notify him or sister and they will institute comfort measures at the time if the patient is unable to make her own decisions. D/W Stefani- She requests a family meeting with palliative care including her brother today Emely Loyd MD Dec 28, 2016 11:39
--- NOTE | 2016-12-28 13:07 | HHI.FPPN ---
Subjective Remarks Ms Richey has had new developments over night. He hip has been repaired but is now displaced. She also has nonhealing wounds. She has poor respiratory status and may require reintubation. Today there is a family meeting to help with decision making. Per discussion today, her son and daughter do not want any further surgeries and were leaning towards comfort care only. It was explained that her lungs are so "full" and she cannot clear them herself so she would need reintubation and bronchoscopy but would end up in the same place again as she is too weak to cough properly. Based on her multitude of worsening problems , it is impossible to get her better. Objective Vitals Vital Signs Date Time Temp Pulse Resp B/P Pulse Ox O2 Delivery O2 Flow Rate FiO2 12/28/16 12:00 108 12/28/16 12:00 98.9 108 22 109/61 99 12/28/16 10:00 108 12/28/16 08:00 99.0 108 22 98/56 99 12/28/16 08:00 108 12/28/16 07:28 95 Nasal Cannula 2.00 12/28/16 06:00 110 12/28/16 04:00 99.3 109 21 105/56 100 12/28/16 04:00 109 12/28/16 02:00 109 12/28/16 00:00 112 12/28/16 00:00 98.6 112 22 105/58 94 12/27/16 22:00 111 12/27/16 20:00 110 12/27/16 20:00 98.6 110 24 107/56 95 12/27/16 19:57 97 Nasal Cannula 2.00 12/27/16 18:00 113 12/27/16 16:00 113 12/27/16 16:00 98.1 113 16 116/57 95 12/27/16 14:00 128 I/O 12/27/16 12/27/16 12/27/16 12/28/16 12/28/16 12/28/16 07:00 15:00 23:00 07:00 15:00 23:00 Intake Total 379 ml 245 ml 396 ml 46 ml Output Total 0 ml 0 ml 0 ml 1500 ml Balance 379 ml 245 ml 396 ml 46 ml -1500 ml IV Total 127 ml 32 ml 396 ml 46 ml Tube Feeding 222 ml 153 ml Other 30 ml 60 ml Output Urine Total 0 ml 0 ml Tube Feeding Residual Discard 0 ml 0 ml 0 ml Hemodialysis 1500 ml # Voids 1 # Bowel Movements 1 2 0 1 Result Diagram: 12/28/16 0600 12/28/16 06 Objective Remarks GENERAL: Elderly white female. Awake with NC in place. In some distress from pain as she was grabbing stethoscopes and hands. Does not answer questions appropriately today. Speaks in low weak voice. SKIN: Pallor. Stage 2-3 sacral decubitus ulcer (dressing changed 12/14, sees wound care), stage 2-3 pressure ulcer R posterior calf, healing. Skin abrasion over L anterior warren. Several bruises over shins and forearms in various stages of healing. Severe edema right forearm and hand, but improved from before. CARDIOVASCULAR: Normal rate, irregularly irregular rhythm. Normal S1/S2. No MRG RESPIRATORY: Decreased breath sounds in the left lower lung. Poor inspiratory effort. Mild crackles b/l lung bases. ABDOMEN: Soft, non-distended, non-tender. MUSCULOSKELETAL: Extremities without clubbing, cyanosis. Edema as noted above. NEURO: Awake, alert. Does not respond to yes/no questions. Does not vocalize. Procedures Hemodialysis - Tue/Thur/Sat schedule Bianchi-endoscopy - 12/18/16 Tracheal intubation, mechanical ventilation Date of Insertion: Dec 24, 2016 Line: Central Venous Catheter Side: Left Location: Internal, Jugular A/P Assessment and Plan 89 yo female with PMH of CHF with last echo 2014 showing EF 35%, ESRD on dialysis TTS, CAD s/p stenting, sacral decubitus ulcers presenting after being found on the ground at snf. Sent to the ED for evaluation and was admitted for altered mental status and urinary tract infection. Discharge Planning Unclear; pending stabilization of medical issues and discussion with palliative care team. Meeting with son and daughter and palliative care today decided against surgery and probably comfort care. Problem List: (1) Palliative care status Status: Acute Plan: Palliative care on board, continuing discussion about goals of treatment. Palliative care met with patient(12/28/2016) along with son and daughter, who are the patient's POA's. Per discussion with palliative care, patient and family want to consider comfort care, as she is extremely ill and care has become futile. - Continue ongoing dialogue about goals of care. (2) Atelectasis of left lung Status: Acute Plan: Severe atelectasis of the left lower lung that improved with bronchoscopy and removal of mucous plugs but then returns shortly after. - Continue positive pressure therapies. - Attempt to sit patient up as much as possible. - Bronchoscopy if needed as last resort to remove mucous plugs. Pt would need to be reintubated and her family is leaning against that (3) Streptococcal infection group D enterococcus Status: Acute Plan: Wound culture showing Group D enterococcus, elevated white count, no fevers. Blood culture no growth (final) - Continue Zosyn, started 12/22 - Monitor white count, vital signs - Wound care as below - Infectious disease on board. (4) Acute upper GI bleed Status: Resolved Plan: GIB noted by dropping H/H, large bloody BM on 12/18. EGD 12/18 showed bleeding peptic ulcers, now s/p cauterization. H/H now stable - GI consulted, appreciate recommendations - S/p EGD with cautery of peptic ulcers - PPI = 40 mg Protonix IV BID - S/p 6 units PRBC, 2 units FFP - Palliative care consulted, appreciate assistance - Alternative code status = re-intubation okay, no chest compressions or shock, ACLS drugs okay - Would qualify for hospice given advanced age and medical comorbidities - Resumed aspirin, holding Plavix (5) Urinary tract infection Status: Resolved Plan: UA with leuk esterase and bacteria (catheterized sample). Leukocytosis but no fevers. UCx showing contaminant (50-100k mixed GPC). - s/p Levaquin dosed renally (500 mg Q48H), s/p coverage of 5 days with fluoroquinolone (cipro day 1, Levaquin x2 doses with each dose covering 48 hours ) (6) Altered mental status Status: Resolved Plan: Presented with altered mental status due to UTI prior to development of GIB. S/p treatment with Levaquin. Currently on Zosyn as above for leukocytosis with unclear etiology. Mental status improving post-extubation. EKG without tachycardia, ST-T wave changes; AFib with normal HR EEG showing no evidence of seizure disorder Troponins/EKG reassuring ECHO done, EF of 55 to 60% UCx 50-100k CFU/mL mixed GPC - Has been getting Tylenol 1 g IV Q6H for pain, on discharge can consider scheduling 650 mg PO every 6-8 hours - Antibiotics as above for leukocytosis - Delirium prevention: sunlight, no sleeping during the day, hold sedating medications (7) CHF, chronic Status: Chronic Plan: EF 55-60%, no signs of pulmonary edema on exam - Beta rock currently on hold - Lasix PRN for fluid overload (8) ESRD (end stage renal disease) on dialysis Status: Chronic Plan: Creatinine at baseline. Hemodialysis on a Sunday, , Sunday schedule. - Nephrology on board, appreciate recs - Continue phosphate binder, Ca, vitamin D - Continue outpatient dialysis - Renally dose medicines, avoid nephrotoxic agents (9) Anemia of renal disease Status: Chronic Plan: Anemia of chronic disease Serum iron 22 TIBC 150 % saturation ~15 - Nephrology consulted, appreciate recs - Venofer as ordered by nephrology (daily) (10) Sacral decubitus ulcer Status: Chronic Plan: Stable from previous descriptions in outpatient setting Wound culture obtained by [facility] due to leukocytosis - F/u wound culture - Consult wound nurse, appreciate recs - Rotate patient every 2 hours - Santyl dressing changes daily on sacral ulcer, not on other ulcers - On discharge, continue treatment of wounds per patient's wound care physician (11) Essential hypertension Status: Chronic Plan: Borderline low blood pressures - Holding Coreg (12) Coronary artery disease Status: Chronic Plan: S/p CABG - Resumed aspirin - Holding plavix - Continue statin (13) History of right hip hemiarthroplasty Status: Chronic Plan: abnormalities on X-ray, hip is dislocated now - Pain management (14) Paroxysmal atrial fibrillation Status: Chronic Plan: Had been on Coumadin previously, but due to recent bleed requiring hospital visit this was discontinued. - Continue rate control with beta rock - Resumed aspirin - Holding Plavix (15) Dementia Status: Chronic Plan: Dementia, at high risk for delirium - Delirium precautions (16) FEN/PPX Status: Acute Plan: Fluids: use with caution due to fluid overload Elecs: Monitor and replete PRN Nutrition: Very dry mouth, not swallowing well, currently NPO. will give 20cc of 1/2 D5NS to keep glucoses up for comfort DVT: Held due to GIB Problem Qualifiers (1) Urinary tract infection: Qualified Code: N30.00 - Acute cystitis without hematuria (2) Altered mental status: Qualified Code: R41.0 - Delirium (3) CHF, chronic: Qualified Code: I50.9 - Chronic congestive heart failure, unspecified congestive heart failure type (4) Sacral decubitus ulcer: Qualified Code: L89.159 - Decubitus ulcer of sacral region, unspecified ulcer stage (5) Coronary artery disease: Qualified Code: I25.10 - Coronary artery disease involving [place] coronary artery of [place] heart, angina presence unspecified (6) Dementia: Qualified Code: G30.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
--- NOTE | 2016-12-28 13:35 | HHI.HCPN ---
Reason for visit a. To assist with evaluation and management of symptoms including: dyspnea , encephalopathy, agitation, pain b. To assist medical decision maker(s) with: better understanding of current medical conditions; weighing benefits/burdens of medical treatment options; making medical treatment decisions. . (Xena Pascual) Subjective/Interval History Patient seen today to follow-up on respiratory status, comfort, goals. Notified of dislocated Right hip and surgical consult for wound debridement. Extubated 12/26, now on 2L NC. NPO due to dysphagia, pulled out her dobhoff tube Labs with no significant changes, WBC continues to be elevated 19.6. Bronchoscopy washings from 12/24 with normal growth respiratory rodrigue, otherwise negative to date. CXR today = continued near complete opacification of left lung, increased since 12/27. Right lung clear. Has required bronchoscopy X 2 for mucus plugging. [Dual visit with CARMELITA Greene.] Patient seen in room with Dr. Darden, Dr. Julio and daughter. Patient is awake, appears painful, agitated, disoriented. Dialysis in progress, patient trying to pull out dialysis access. Crying out and hitting providers. Daughter at bedside, briefly updated as to overnight changes including, right hip dislocation with history of right hip hemiarthroplasty, evaluated by Dr. Woods for possible attempt at closed reduction if possible or open reduction if closed unsuccessful. General surgery was consulted for wound debridement, however, Dr. Ospina states she is not a surgical candidate. CXR showing worsening left lung opacification discussed briefly, however, due to the decline overnight, the daughter requests a meeting with the medical and palliative care teams when her brother can attend, for a full update which is scheduled at 2 pm today. Daughter feels the patient's declining mental status and agitation are due to receiving pain medication this morning. Financial Data Analyst Dr. Loyd, resident service, Dr. Darden and Dr. Julio have been notified of the meeting and plan to attend. Remain alternative code, intubation only. ., (Xena Pascual) Advance Directives Living Will: Never completed Health Care Surrogate: Never completed Durable Power of Showroom Manager: Copy in medical record (Xena Pascual) Advance Directive Specifics Date completed: Health care POA form completed 09/08/2015. . Health Care Surrogate(s): Health care POA form lists : Brandy Small (daughter) and Cristóbal Richey ( son) to serve together as health care surrogates. Documented care wishes: There is no written documentation of health care goals/preferences. . (Xena Pascual) Objective Vital Signs Date Time Temp Pulse Resp B/P Pulse Ox O2 Delivery O2 Flow Rate FiO2 12/28/16 10:00 108 12/28/16 08:00 99.0 108 22 98/56 99 12/28/16 08:00 108 12/28/16 07:28 95 Nasal Cannula 2.00 12/28/16 06:00 110 12/28/16 04:00 99.3 109 21 105/56 100 12/28/16 04:00 109 12/28/16 02:00 109 12/28/16 00:00 112 12/28/16 00:00 98.6 112 22 105/58 94 12/27/16 22:00 111 12/27/16 20:00 110 12/27/16 20:00 98.6 110 24 107/56 95 12/27/16 19:57 97 Nasal Cannula 2.00 12/27/16 18:00 113 12/27/16 16:00 113 12/27/16 16:00 98.1 113 16 116/57 95 12/27/16 14:00 128 12/27/16 12:00 98.4 109 30 118/59 95 12/27/16 12:00 109 Intake & Output 12/28/16 12/28/16 07:00 19:00 Intake Total 442 ml Output Total 0 ml 1500 ml Balance 442 ml -1500 ml IV Total 442 ml Output Urine Total 0 ml Tube Feeding Residual Discard 0 ml 0 ml Hemodialysis 1500 ml # Voids 1 # Bowel Movements 1 Physical Exam CONSTITUTIONAL/GENERAL: This is a pale, frail appearing elderly patient in an MICU bed. agitated, disoriented, combative. TUBES/LINES/DRAINS: Ariza catheter; peripheral IVs; SKIN: Multiple areas of ecchymosis to extremities, many skin tears on upper, lower extremities. Sacral decubiti. Skin temperature appropriate. CARDIOVASCULAR: irregular rate and rhythm, no murmur, mild tachycardia. observe atrial fib, tachy rate 110's on bedside monitor. Edema RUE, RLE. Rt DP, PT pulses non palpable, warm with extended cap refill of 5 seconds. RESPIRATORY/CHEST: Symmetric, unlabored respirations on 2L NC. Very diminished Left breath sounds with crackles anteriorly. Rt clear, diminished. GASTROINTESTINAL: Abdomen soft, no apparent tenderness, nondistended. Bowel sounds present. MUSCULOSKELETAL: Extremities thin, ++muscle atrophy . Multiple areas of ecchymosis and skin tears to all 4 extremities. EDEMA RUE, RLE internally rotated, painful with movement. NEUROLOGICAL: disoriented, not following instructions, moving upper extremities , withdraws LE to pain. PSYCHIATRIC: agitated, combative. . . (Xena Pascual) Diagnostic Tests Laboratory Laboratory Tests Test 12/25/16 12/26/16 12/26/16 12/27/16 12:10 04:00 15:55 03:15 Blood Gas Puncture Site LT RADIAL Blood Gas Patient Temperature 98.6 Blood Gas HCO3 25 mmol/L (22-26) Blood Gas Base Excess 0.7 mmol/L (-2-2) Blood Gas Oxygen Saturation 96 % (90-100) Arterial Blood pH 7.42 (7.380-7.420) Arterial Blood Partial 39 mmHg (38-42) Pressure CO2 Arterial Blood Partial 120 mmHg Pressure O2 (61-120) Arterial Blood Oxygen Content 16.3 Vol % (12.0-20.0) Arterial Blood 1.8 % (0-4) Carboxyhemoglobin Arterial Blood Methemoglobin 1.3 % (0-2) Blood Gas Hemoglobin 12.0 G/DL (12.0-16.0) Oxygen Delivery Device VENTILATOR Blood Gas Ventilator Setting CPAP/PS10/PEEP5 Blood Gas Inspired Oxygen 35 % White Blood Count 20.4 TH/MM3 22.1 TH/MM3 (4.0-11.0) (4.0-11.0) Red Blood Count 3.18 MIL/MM3 3.17 MIL/MM3 (4.00-5.30) (4.00-5.30) Hemoglobin 9.5 GM/DL 9.9 GM/DL 9.5 GM/DL (11.6-15.3) (11.6-15.3) (11.6-15.3) Hematocrit 29.0 % 29.9 % 29.1 % (35.0-46.0) (35.0-46.0) (35.0-46.0) Mean Corpuscular Volume 91.4 FL 91.9 FL (80.0-100.0) (80.0-100.0) Mean Corpuscular Hemoglobin 29.9 PG 30.1 PG (27.0-34.0) (27.0-34.0) Mean Corpuscular Hemoglobin 32.7 % 32.7 % Concent (32.0-36.0) (32.0-36.0) Red Cell Distribution Width 16.1 % 16.7 % (11.6-17.2) (11.6-17.2) Platelet Count 303 TH/MM3 322 TH/MM3 (150-450) (150-450) Mean Platelet Volume 6.6 FL 6.8 FL (7.0-11.0) (7.0-11.0) Neutrophils (%) (Auto) 88.2 % 85.1 % (16.0-70.0) (16.0-70.0) Lymphocytes (%) (Auto) 4.1 % 5.0 % (9.0-44.0) (9.0-44.0) Monocytes (%) (Auto) 6.6 % (0.0-8.0) 8.4 % (0.0-8.0) Eosinophils (%) (Auto) 0.9 % (0.0-4.0) 1.1 % (0.0-4.0) Basophils (%) (Auto) 0.2 % (0.0-2.0) 0.4 % (0.0-2.0) Neutrophils # (Auto) 18.0 TH/MM3 18.8 TH/MM3 (1.8-7.7) (1.8-7.7) Lymphocytes # (Auto) 0.8 TH/MM3 1.1 TH/MM3 (1.0-4.8) (1.0-4.8) Monocytes # (Auto) 1.3 TH/MM3 1.8 TH/MM3 (0-0.9) (0-0.9) Eosinophils # (Auto) 0.2 TH/MM3 0.3 TH/MM3 (0-0.4) (0-0.4) Basophils # (Auto) 0.0 TH/MM3 0.1 TH/MM3 (0-0.2) (0-0.2) CBC Comment AUTO DIFF AUTO DIFF Differential Total Cells 100 100 Counted Neutrophils % (Manual) 82 % (16-70) 80 % (16-70) Band Neutrophils % 2 % (0-6) 1 % (0-6) Lymphocytes % 4 % (9-44) 8 % (9-44) Monocytes % 7 % (0-8) 8 % (0-8) Eosinophils % 1 % (0-4) Basophils % 1 % (0-2) 1 % (0-2) Neutrophils # (Manual) 17.7 TH/MM3 18.3 TH/MM3 (1.8-7.7) (1.8-7.7) Myelocytes 3 % (0-0) 2 % (0-0) Differential Comment FINAL DIFF FINAL DIFF MANUAL MANUAL Platelet Estimate NORMAL NORMAL (NORMAL) (NORMAL) Platelet Morphology Comment NORMAL NORMAL (NORMAL) (NORMAL) Sodium Level 138 MEQ/L 138 MEQ/L (136-145) (136-145) Potassium Level 3.2 MEQ/L 3.6 MEQ/L (3.5-5.1) (3.5-5.1) Chloride Level 97 MEQ/L 98 MEQ/L (98-107) (98-107) Carbon Dioxide Level 32.4 MEQ/L 32.8 MEQ/L (21.0-32.0) (21.0-32.0) Anion Gap 9 MEQ/L (5-15) 7 MEQ/L (5-15) Blood Urea Nitrogen 16 MG/DL (7-18) 17 MG/DL (7-18) Creatinine 2.69 MG/DL 2.26 MG/DL (0.50-1.00) (0.50-1.00) Estimat Glomerular Filtration 17 ML/MIN (>89) 20 ML/MIN (>89) Rate Random Glucose 131 MG/DL 122 MG/DL (74-106) (74-106) Calcium Level 8.6 MG/DL 8.8 MG/DL (8.5-10.1) (8.5-10.1) Phosphorus Level 1.6 MG/DL 1.3 MG/DL (2.5-4.9) (2.5-4.9) Polychromasia 2.5 % (0.0-1.9) Basophilic Stippling FAINT (NORMAL) Magnesium Level 1.8 MG/DL (1.5-2.5) Total Bilirubin 0.7 MG/DL (0.2-1.0) Aspartate Amino Transf 17 U/L (15-37) (AST/SGOT) Alanine Aminotransferase 10 U/L (10-53) (ALT/SGPT) Alkaline Phosphatase 103 U/L (45-117) Total Protein 6.1 GM/DL (6.4-8.2) Albumin 2.6 GM/DL (3.4-5.0) Test 12/27/16 12/28/16 14:00 06:00 Stool C. difficile Toxin (PCR) NEGATIVE (NEGATIVE) Stl C. difficile Toxin PRESUMPTIVE Epiderm 027 NEGATIVE (NEGATIVE) White Blood Count 19.6 TH/MM3 (4.0-11.0) Red Blood Count 3.05 MIL/MM3 (4.00-5.30) Hemoglobin 9.0 GM/DL (11.6-15.3) Hematocrit 28.2 % (35.0-46.0) Mean Corpuscular Volume 92.5 FL (80.0-100.0) Mean Corpuscular Hemoglobin 29.7 PG (27.0-34.0) Mean Corpuscular Hemoglobin 32.1 % Concent (32.0-36.0) Red Cell Distribution Width 16.7 % (11.6-17.2) Platelet Count 328 TH/MM3 (150-450) Mean Platelet Volume 6.5 FL (7.0-11.0) Neutrophils (%) (Auto) 85.1 % (16.0-70.0) Lymphocytes (%) (Auto) 5.1 % (9.0-44.0) Monocytes (%) (Auto) 7.7 % (0.0-8.0) Eosinophils (%) (Auto) 1.5 % (0.0-4.0) Basophils (%) (Auto) 0.6 % (0.0-2.0) Neutrophils # (Auto) 16.7 TH/MM3 (1.8-7.7) Lymphocytes # (Auto) 1.0 TH/MM3 (1.0-4.8) Monocytes # (Auto) 1.5 TH/MM3 (0-0.9) Eosinophils # (Auto) 0.3 TH/MM3 (0-0.4) Basophils # (Auto) 0.1 TH/MM3 (0-0.2) CBC Comment AUTO DIFF Differential Total Cells 100 Counted Neutrophils % (Manual) 78 % (16-70) Band Neutrophils % 1 % (0-6) Lymphocytes % 7 % (9-44) Monocytes % 6 % (0-8) Eosinophils % 2 % (0-4) Neutrophils # (Manual) 16.7 TH/MM3 (1.8-7.7) Myelocytes 6 % (0-0) Differential Comment FINAL DIFF MANUAL Platelet Estimate NORMAL (NORMAL) Platelet Morphology Comment NORMAL (NORMAL) Sodium Level 139 MEQ/L (136-145) Potassium Level 3.5 MEQ/L (3.5-5.1) Chloride Level 97 MEQ/L (98-107) Carbon Dioxide Level 31.3 MEQ/L (21.0-32.0) Anion Gap 11 MEQ/L (5-15) Blood Urea Nitrogen 27 MG/DL (7-18) Creatinine 3.21 MG/DL (0.50-1.00) Estimat Glomerular Filtration 14 ML/MIN (>89) Rate Random Glucose 69 MG/DL (74-106) Calcium Level 7.9 MG/DL (8.5-10.1) Phosphorus Level 3.9 MG/DL (2.5-4.9) Magnesium Level 1.8 MG/DL (1.5-2.5) (Xena Pascual) Result Diagram: 12/28/16 0600 12/28/16 0600 Procedures * 12/24/16repeat bronchoscopy, reintubation * Intubation/mechanical ventilation * EGD with cauterization of gastric ulcer * Bronchoscopy 12/21/16 * Hemodialysis. . . (Xena Pascual) Assessment and Plan Disease Oriented Problem List: (1) Acute upper GI bleed Comment: EGD of 12/18/16 revealed a gastric ulcer. Duodenitis without bleeding was also noted. . (2) Coronary artery disease Comment: Patient has had bypass surgery. (3) Essential hypertension (4) Paroxysmal atrial fibrillation (5) Hypothyroidism (acquired) (6) Sacral decubitus ulcer (7) ESRD (end stage renal disease) on dialysis Comment: Patient has been receiving hemodialysis for approximately 5 years (8) Altered mental status (9) Dementia Comment: Patient developed cognitive challenges following her second stroke. This seems to be more with reasoning and executive function than it is with short-term memory. . 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 First stroke --> good resolution. 2nd Stroke left her with problems with swallowing, speech, and executive function. . 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 . Symptom Scale: (1) Pain 0-10 Scale: Unable to quantify Comment: Patient with many years of lower extremity pain of uncertain etiology . (2) Dyspnea 0-10 Scale: Unable to quantify Comment: Repeat bronchoscopy on 12/25/16 . . (3) Encephalopathy 0-10 Scale: Unable to quantify (patient has underlying cognitive challenges. These have been exacerbated by what is either a metabolic encephalopathy or a multifactorial delirium.) Comment: . Pertinent Non-Medical Issues Psychosocial: Patient has a sonCristóbal-- who lives locally. Rashawn lives in [place]. Spiritual: Patient grew up in a fundamentalist tradition. Daughter reports she became bitter following the premature of her . Legal: No known living will. There is a completed health care power of commonwealth attorney document that gives: Health care surrogate designation to both of her children. Ethical issues impacting care: Patient is incapacitated to make her own medical decisions. It is not clear if she will regain capacity to do so. . Important Contacts * Cristóbal Richey (son and health co-health care POA) [phone] * Brandy Phillips (daughter and co-health care surrogate) . Prognosis Ms. Richey has not done well since her heart surgery -- CABG and tricuspid valve replacement-- several years ago. She has since suffered 2 strokes. Though she had some improvement after the first stroke. The second stroke left her with some swallowing issues, speech issues and some cognitive deficits. She has been frustrated with these deficits and has withdrawn socially. She is primarily wheelchair and bedbound. Daughter reports that her weight has fallen from a normal weight of approximately 160 pounds down to approximately 115 pounds. She has been receiving hemodialysis for approximately 5 years -- hemodialysis began shortly after her surgery which apparently also caused renal insufficiency. She suffered a hip fracture requiring repair about a month ago, and is now back in the hospital with respiratory failure, urinary tract infection, and a large gastrointestinal hemorrhage. She has required 2 bronchoscopies for left lung collapse and mucus plugs. Her left lung again today shows complete opacification. Given the above, and her advanced age her prognosis is not great. It now appears that the patient may not survive the intensive care unit stay. Given her trajectory leading up to this hospitalization and her advanced age, significant relapse is likely. Life expectancy is probably well under a year. Whenever the patient or her family feel they want to "transition to comfort measures, she would be eligible for hospice services. . Code Status: Alternative Code (No chest compressions or shock; Yes intubate and ACLS drugs) Plan == Code Status: 12/26/16revisit this with patient, son, daughter --patient to remain alternative code YES to intubation. 12/28/16 - met with family, Dr. Loyd, Dr. Darden participated and decision was made to make pt. comfort care, DNR. RN updated, request for private room if available. == Decision making: Son and daughter are joint health care surrogates. == Goals: Patient, supported by Son and daughter continue to want aggressive care short of the resuscitation limits noted above. They are open to ongoing discussions regarding goals as clinical course evolves. They have previously expressed They know the patient would not want to be dependent on a ventilator for the rest of her life and would not want to be sustained in a permanent vegetative state. As she has clinically deteriorated overnight and is now agitated, disoriented and painful, this decision will be reviewed at a family meeting with both children, Dr. Loyd, the resident's service and palliative care team at 2 pm today, 12/28. == Pain: Patient has long-standing lower extremity pain of uncertain etiology. She also may be uncomfortable from her prolonged bedbound status, multiple decubiti and vascular access lines.Has prn fentanyl 50mcgs-- last dose 8 a.m. . Patient is agitated, today striking out at providers, resisting movement. She was found to have non-traumatic right hip dislocation, being evaluated by orthopedics. == Dyspnea: Patient with multiple recent intubation/extubation Extubated . repeat bronch and intubation 12/25--> then again extubated yesterday . CXR stable, persistent left lung consolidation. Very weak cough, and immobile. Remains at risk for ongoing respiratory distress, failure == Encephalopathy: Patient has some baseline cognitive deficits, particularly with executive function since her second stroke. She is now awake, agitated, confused. Appears to lack insight and full understanding of conditions. == Palliative care will continue to follow during hospital course as condition evolves, to assist patient/decision-maker with understanding of medical conditions, weighing benefits/burdens of treatment options, for clarification of goals of treatment. Additionally will assist with any symptoms of palliative concern . (Xena Pascual) Attestation To help prompt me to consider important information that might be impacting today's encounter and assessment, information from prior notes written by myself or my colleagues may have been "brought forward" into today's note. My signature on this note, however, is an attestation that I personally performed the exam, history, and/or decision-making noted today, and, unless otherwise indicated, the interactions with patient, family, and staff as well as the review of records all occurred today. I also attest that the listed assessment and stated plan reflect my best clinical judgment today based on the combination of historical information, prior notes, and today's exam/ interactions. When time spent is documented, it refers only to time spent today by the signer, or if indicated, combined time spent today by collaborating physician/nurse practitioner. (Xena Pascual) Collaborating MD Comments Dual visit w Katerina MAE. Pt seen in the am due to above noted changed in conditions. Planned for family mtg later w mult providers. PE: CONSTITUTIONAL/GENERAL: This is a pale, frail, agitated, disoriented, combative.dialysis in progress TUBES/LINES/DRAINS: Ariza catheter; peripheral IVs; SKIN: Multiple areas of ecchymosis to extremities, many skin tears on upper, lower extremities. Skin temperature appropriate. CARDIOVASCULAR: irregular rate and rhythm, tachycardia. observe atrial fib, on bedside monitor. Edema RUE, RLE. Rt DP, PT pulses non palpable, warm with extended cap refill of 5 seconds. RESPIRATORY/CHEST: Symmetric, unlabored respirations on 2L NC. Very diminished Left breath sounds/minimal air movement. Rt clear, diminished. NEUROLOGICAL: disoriented,moaning/making sounds- no clear verbalization. not following instructions, moving upper extremities, withdraws LE to pain. PSYCHIATRIC: agitated, combative. 2pm: met for approx [address] Loyd, Dr Darden present participated in part of meeting w pt son, dtr, palliative. Review of current conditions, prognosis, and limited tx options. Family appears to have good understanding of conditions, informs pt has had ongoing decline. Family (son, dtr) endorse that they want NO FURTHER INVASIVE/AGGRESSIVE TX measures based on pt known wishes. They wish to transition to comfort focus only. They request DNR status. Explore hospice role, philosophy, services-they are not certain RE hospice yet, wish to reevaulate tomorrow. Anticipatory guidance provided. All questions answered. D/w RN, palliative MD, comfort orders entered. (Cecilia Keys) Xena Pascual Dec 28, 2016 13:03 Cecilia Keys Dec 28, 2016 15:30 Xena Pascual Dec 28, 2016 13:03 Cecilia Keys Dec 28, 2016 15:30
[2016-12-28] MEDS ORDERED: DEXT 5%-NACL 0.45% 500 ML INJ 500 ML IV SCH (14:15)
[2016-12-28] MEDS ORDERED: LORazepam 2 MG/ML VIAL IV PUSH PRN ×2 (15:00)
[2016-12-28] MEDS ORDERED: fentaNYL CITRATE 250 MCG/5 ML AMP IV PUSH PRN (15:00)
[2016-12-28] MEDS: LATANOPROST 0.005% OPHT SOLN 2.5 ML BTL EACH EYE SCH (19:49)
--- NOTE | 2016-12-28 22:52 | HHI.PR ---
Subjective Subjective Notes Family wishes noted. Objective Vitals/I&O Vital Signs Date Time Temp Pulse Resp B/P Pulse Ox O2 Delivery O2 Flow Rate FiO2 12/28/16 22:00 107 12/28/16 20:00 97.8 24 94/55 97 12/28/16 07:28 Nasal Cannula 2.00 12/25/16 12:00 30 Labs Laboratory Tests Test 12/28/16 06:00 White Blood Count 19.6 Red Blood Count 3.05 Hemoglobin 9.0 Hematocrit 28.2 Mean Corpuscular Volume 92.5 Mean Corpuscular Hemoglobin 29.7 Mean Corpuscular Hemoglobin 32.1 Concent Red Cell Distribution Width 16.7 Platelet Count 328 Mean Platelet Volume 6.5 Neutrophils (%) (Auto) 85.1 Lymphocytes (%) (Auto) 5.1 Monocytes (%) (Auto) 7.7 Eosinophils (%) (Auto) 1.5 Basophils (%) (Auto) 0.6 Neutrophils # (Auto) 16.7 Lymphocytes # (Auto) 1.0 Monocytes # (Auto) 1.5 Eosinophils # (Auto) 0.3 Basophils # (Auto) 0.1 CBC Comment AUTO DIFF Differential Total Cells 100 Counted Neutrophils % (Manual) 78 Band Neutrophils % 1 Lymphocytes % 7 Monocytes % 6 Eosinophils % 2 Neutrophils # (Manual) 16.7 Myelocytes 6 Differential Comment FINAL DIFF MANUAL Platelet Estimate NORMAL Platelet Morphology Comment NORMAL Sodium Level 139 Potassium Level 3.5 Chloride Level 97 Carbon Dioxide Level 31.3 Anion Gap 11 Blood Urea Nitrogen 27 Creatinine 3.21 Estimat Glomerular Filtration 14 Rate Random Glucose 69 Calcium Level 7.9 Phosphorus Level 3.9 Magnesium Level 1.8 Date/Time Procedure Status Source Growth 12/24/16 13:45 Gram Stain - Final Complete Bronchial Washings Left Upper Lobe 12/24/16 13:45 Bronchial Culture - Final Complete Bronchial Washings Left Upper Lobe MODERATE GROWTH NORMAL RESPIRATORY DANIEL 12/24/16 13:45 Fungal Smear - Final Resulted Bronchial Washings Left Upper Lobe NO FUNGAL ELEMENTS SEEN. 12/24/16 13:45 Fungal Culture Resulted Bronchial Washings Left Upper Lobe Pending 12/24/16 13:45 Acid Fast Stain - Final Resulted Bronchial Washings Left Upper Lobe NO ACID FAST BACILLI SEEN 12/24/16 13:45 Mycobacterial Culture Resulted Bronchial Washings Left Upper Lobe Pending Extremities: Other (pedal edema) A/P Assessment and Plan Leg wound, unchanged Family wishes comfort measures only Will sign off Albaro Ospina MD Dec 28, 2016 22:52
[2016-12-29] VITALS (7 sets, daily range): BP systolic 94–115; BP diastolic 55–63; PULSE 108–109; RESP 22–24; TEMP 97.8–98.2; O2SAT 97–100
[2016-12-29] MEDS: RESP: ALBUTEROL 2.5 MG/IPRATROPIUM 0.5 MG NEB (SCH) NEB (04:00)
--- NOTE | 2016-12-29 06:05 | RADRPT ---
EXAM DATE/TIME: 12/29/2016 03:41 [facility] COMPARISON: CHEST SINGLE AP, December 28, 2016, 3:00. INDICATIONS : Shortness of breath. MEDICAL HISTORY : Stroke. Hypercholesterolemia. Congestive heart failure. SURGICAL HISTORY : Lobectomy. Valve replacement. ENCOUNTER: Subsequent ACUITY: 2 weeks PAIN SCORE: Non-responsive. LOCATION: Bilateral chest FINDINGS: A single portable frontal view of the chest shows continued complete consolidation of the left hemith orax. Right lung is clear. Heart is normal in size. Left central line observed. A vascular stent is s een involving the right axilla and right lateral chest. Median sternotomy wires noted. CONCLUSION: Unchanged complete consolidation of the left lung. Shadi Chapman Jr., MD on December 29, 2016 at 6:03 Board Certified Radiologist. This report was verified electronically.
--- NOTE | 2016-12-29 08:24 | PD.ORT.PN ---
Subjective Subjective Remarks s/p right hip bipolar hemiarthroplasty on 11/15/16 re-admitted for urosepsis and declining health status. right hip dislocation Objective Vitals Vital Signs Date Time Temp Pulse Resp B/P Pulse Ox O2 Delivery O2 Flow Rate FiO2 12/29/16 06:00 109 12/29/16 04:00 98.2 109 22 115/63 99 12/29/16 04:00 109 12/29/16 02:00 108 12/29/16 00:00 97.8 108 22 114/60 100 12/29/16 00:00 108 12/28/16 22:00 107 12/28/16 20:00 109 12/28/16 20:00 97.8 109 24 94/55 97 12/28/16 19:15 97.8 109 24 94/55 97 12/28/16 18:00 108 12/28/16 16:00 108 12/28/16 16:00 99.0 108 22 118/58 99 12/28/16 14:00 108 12/28/16 12:00 108 12/28/16 12:00 98.9 108 22 109/61 99 12/28/16 10:00 108 I/O 12/28/16 12/28/16 12/28/16 12/29/16 12/29/16 12/29/16 07:00 15:00 23:00 07:00 15:00 23:00 Intake Total 46 ml 125 ml 184 ml 286 ml Output Total 1500 ml 0 ml Balance 46 ml -1375 ml 184 ml 286 ml IV Total 46 ml 125 ml 184 ml 286 ml Output Urine Total 0 ml 0 ml Tube Feeding Residual Discard 0 ml 0 ml Hemodialysis 1500 ml # Voids 1 # Bowel Movements 1 Result Diagram: 12/28/16 0612/28/16599 Imaging Last 24 hours Impressions Chest X-Ray 12/28/16599 Signed Impressions: Service Date/Time: December 03:00 - CONCLUSION: Continued near-complete opacification of left lung increased since the . Clips and wires are stable in position. Right lung remains clear Naun Nash MD Objective Remarks Right hip incision is well-healed. Her right leg is shortened and internally rotated. She has pain with any hip motion. There is no erythema or drainage from the incision. Assessment & Plan Assessment and Plan 1) Right hip dislocation s/p hip hemiarthroplasty -spoke with Dr Rothman. He has spoken with family and family has decided to proceed with comfort and palliative care. Will cancel surgery and treat nonoperatively. remain NWB and maintain comfort level. Kel Dumont Dec 29, 2016 08:24
[2016-12-29] MEDS: SODIUM CHLORIDE 0.9% FLUSH 10 ML FLUSH IVF SCH (08:36)
[2016-12-29] MEDS: PANTOPRAZOLE SODIUM 40 MG VIAL IV PUSH SCH (08:36)
--- NOTE | 2016-12-29 10:51 | HHI.FPPN ---
Subjective Remarks Stable overnight. Still on nasal cannula. Tries to communicate wants/needs but difficulty this AM due to respiratory secretions. Family had meeting yesterday and decided to transition to comfort measures only. Requesting hospice consult this AM. (Kade Tyler MD R1) Objective Vitals Vital Signs Date Time Temp Pulse Resp B/P Pulse Ox O2 Delivery O2 Flow Rate FiO2 12/29/16 10:00 109 12/29/16 08:00 97.8 109 24 94/55 97 12/29/16 08:00 109 12/29/16 07:15 98.0 109 24 102/62 97 12/29/16 06:00 109 12/29/16 04:00 98.2 109 22 115/63 99 12/29/16 04:00 109 12/29/16 02:00 108 12/29/16 00:00 97.8 108 22 114/60 100 12/29/16 00:00 108 12/28/16 22:00 107 12/28/16 20:00 109 12/28/16 20:00 97.8 109 24 94/55 97 12/28/16 19:15 97.8 109 24 94/55 97 12/28/16 18:00 108 12/28/16 16:00 108 12/28/16 16:00 99.0 108 22 118/58 99 12/28/16 14:00 108 12/28/16 12:00 108 12/28/16 12:00 98.9 108 22 109/61 99 I/O 12/28/16 12/28/16 12/28/16 12/29/16 12/29/16 12/29/16 07:00 15:00 23:00 07:00 15:00 23:00 Intake Total 46 ml 125 ml 184 ml 286 ml Output Total 1500 ml 0 ml 0 ml Balance 46 ml -1375 ml 184 ml 286 ml 0 ml IV Total 46 ml 125 ml 184 ml 286 ml Output Urine Total 0 ml 0 ml Tube Feeding Residual Discard 0 ml 0 ml 0 ml Hemodialysis 1500 ml # Voids 1 # Bowel Movements 1 (Kade Tyler MD R1) Result Diagram: 12/28/16 0600 12/28/16 06 Imaging Last Impressions Chest X-Ray 12/29/16599 Signed Impressions: Service Date/Time: Thursday, December 29, 2016 03:41 - CONCLUSION: Unchanged complete consolidation of the left lung. Shadi Chapman Jr., MD Hip X-Ray 12/27/16 Signed Impressions: Service Date/Time: Tuesday, December 27, 2016 15:33 - CONCLUSION: Superior dislocation of the hip arthroplasty on the right. Henry Del Valle MD FACR Abdomen X-Ray 12/27/16 Signed Impressions: Service Date/Time: Tuesday, December 27, 2016 15:22 - CONCLUSION: Dobbhoff catheter tip appears to be within the stomach. Shadi Weber MD Upper Extremity Ultrasound 12/24/16 Signed Impressions: Service Date/Time: Saturday, December 24, 2016 14:41 - CONCLUSION: Normal examination. Benjamin Oquendo MD Chest CT 12/24/16 Signed Impressions: Service Date/Time: Saturday, December 24, 2016 12:00 - CONCLUSION: The left main bronchus is filled with soft tissue density could be secretions with mucous plugging versus neoplastic process and the entire left lung is consolidated/collapsed with a tiny left pleural effusion. Rigoberto Valencia MD Hip and Pelvis X-Ray 12/15/16 Signed Impressions: Service Date/Time: Thursday, December 15, 2016 05:00 - CONCLUSION: Intact total hip prosthesis for technique and extensive stool and osteopenia as above. Rigoberto Valencia MD Head CT 12/15/16 Signed Impressions: Service Date/Time: Thursday, December 15, 2016 04:53 - CONCLUSION: Chronic and small vessel ischemic changes without any evidence for acute hemorrhage or mass effect. Rigoberto Valencia MD Cervical Spine CT 12/15/16 Signed Impressions: Service Date/Time: Thursday, December 15, 2016 04:53 - CONCLUSION: Neural foramina compromise right C3-4, right C5-C6 and bilateral lateral recess compromise C5- 6. Rigoberto Valencia MD Objective Remarks GENERAL: Elderly white female. Awake with NC in place. Appears uncomfortable but not distressed. Does not answer questions appropriately today. Speaks in low weak voice. SKIN: Pallor. Stage 2-3 sacral decubitus ulcer (dressing changed 12/14, sees wound care), stage 2-3 pressure ulcer R posterior calf, healing. Skin abrasion over L anterior warren. Several bruises over shins and forearms in various stages of healing. Edema right forearm and hand, improved from before. CARDIOVASCULAR: Normal rate, irregularly irregular rhythm. Normal S1/S2. No MRG RESPIRATORY: Raspy sounding breath from secretions. Absent breath sounds in the left lower lung. Poor inspiratory effort. Mild crackles b/l lung bases. ABDOMEN: Soft, non-distended, non-tender. MUSCULOSKELETAL: Extremities without clubbing, cyanosis. Edema as noted above. NEURO: Awake, alert. Does not respond to yes/no questions. Speaks in low soft voice. Procedures Hemodialysis - Tue/Thur/Sat schedule Bianchi-endoscopy - 12/18/16 Tracheal intubation, mechanical ventilation (Kade Tyler MD R1) Date of Insertion: Dec 24, 2016 Line: Central Venous Catheter Side: Left Location: Internal, Jugular (Kade Tyler MD R1) A/P Assessment and Plan 89 yo female with PMH of CHF with last echo 2014 showing EF 35%, ESRD on dialysis TTS, CAD s/p stenting, sacral decubitus ulcers presenting after [facility]. Sent to the ED for evaluation and was admitted for altered mental status and urinary tract infection. Discharge Planning Unclear; pending stabilization of medical issues and discussion with palliative care team. Meeting with son and daughter and palliative care today decided against surgery and probably comfort care. (Kade Tyler MD R1) Attending Attestation Patient seen and examined. Case reviewed and discussed with the resident team. Agree with plan of care as discussed with me and documented in the resident note. (No Darden MD) Problem List: (1) Palliative care status Status: Acute Plan: Palliative care on board, continuing discussion about goals of treatment. Palliative care met with patient(12/28/2016) along with son and daughter, who are the patient's POA's. Per discussion with palliative care, patient and family want to consider comfort care, as she is extremely ill and care has become futile. - Family today (12/29) requesting consult for hospice to assist in comfort measures - Hospice accepted patient, will be discharged to Hospice in [place] (2) Atelectasis of left lung Status: Acute Plan: Severe atelectasis of the left lower lung that improved with bronchoscopy and removal of mucous plugs but then returns shortly after. - Continue positive pressure therapies. - Attempt to sit patient up as much as possible. - Transitioning to hospice, no re-intubation (3) Streptococcal infection group D enterococcus Status: Acute Plan: Wound culture showing Group D enterococcus, elevated white count, no fevers. Blood culture no growth (final) - Continue Zosyn, started 12/22 - Monitor white count, vital signs - Wound care as below - Infectious disease on board. (4) Acute upper GI bleed Status: Resolved Plan: GIB noted by dropping H/H, large bloody BM on 12/18. EGD 12/18 showed bleeding peptic ulcers, now s/p cauterization. H/H now stable - GI consulted, appreciate recommendations - S/p EGD with cautery of peptic ulcers - PPI = 40 mg Protonix IV BID - S/p 6 units PRBC, 2 units FFP - Palliative care consulted, appreciate assistance - Alternative code status = re-intubation okay, no chest compressions or shock, ACLS drugs okay - Would qualify for hospice given advanced age and medical comorbidities - Resumed aspirin, holding Plavix (5) Urinary tract infection Status: Resolved Plan: UA with leuk esterase and bacteria (catheterized sample). Leukocytosis but no fevers. UCx showing contaminant (50-100k mixed GPC). - s/p Levaquin dosed renally (500 mg Q48H), s/p coverage of 5 days with fluoroquinolone (cipro day 1, Levaquin x2 doses with each dose covering 48 hours ) (6) Altered mental status Status: Resolved Plan: Presented with altered mental status due to UTI prior to development of GIB. S/p treatment with Levaquin. Currently on Zosyn as above for leukocytosis with unclear etiology. Mental status improving post-extubation. EKG without tachycardia, ST-T wave changes; AFib with normal HR EEG showing no evidence of seizure disorder Troponins/EKG reassuring ECHO done, EF of 55 to 60% UCx 50-100k CFU/mL mixed GPC - Has been getting Tylenol 1 g IV Q6H for pain, on discharge can consider scheduling 650 mg PO every 6-8 hours - Antibiotics as above for leukocytosis - Delirium prevention: sunlight, no sleeping during the day, hold sedating medications (7) CHF, chronic Status: Chronic Plan: EF 55-60%, no signs of pulmonary edema on exam - Beta rock currently on hold - Lasix PRN for fluid overload (8) ESRD (end stage renal disease) on dialysis Status: Chronic Plan: Creatinine at baseline. Hemodialysis on a Sunday, , Sunday schedule. - Nephrology on board, appreciate recs - Continue phosphate binder, Ca, vitamin D - Continue outpatient dialysis - Renally dose medicines, avoid nephrotoxic agents - Will be discontinuing dialysis at hospice (9) Anemia of renal disease Status: Chronic Plan: Anemia of chronic disease Serum iron 22 TIBC 150 % saturation ~15 - Nephrology consulted, appreciate recs - Venofer as ordered by nephrology (daily) (10) Sacral decubitus ulcer Status: Chronic Plan: Stable from previous descriptions in outpatient setting Wound culture obtained by [facility] due to leukocytosis - F/u wound culture - Consult wound nurse, appreciate recs - Rotate patient every 2 hours - Santyl dressing changes daily on sacral ulcer, not on other ulcers - On discharge, continue treatment of wounds per patient's wound care physician (11) Essential hypertension Status: Chronic Plan: Borderline low blood pressures - Holding Coreg (12) Coronary artery disease Status: Chronic Plan: S/p CABG - Resumed aspirin - Holding plavix - Continue statin (13) History of right hip hemiarthroplasty Status: Chronic Plan: abnormalities on X-ray, hip is dislocated now - Pain management (14) Paroxysmal atrial fibrillation Status: Chronic Plan: Had been on Coumadin previously, but due to recent bleed requiring hospital visit this was discontinued. - Continue rate control with beta rock - Resumed aspirin - Holding Plavix (15) Dementia Status: Chronic Plan: Dementia, at high risk for delirium - Delirium precautions (16) FEN/PPX Status: Acute Plan: Fluids: use with caution due to fluid overload Elecs: Monitor and replete PRN Nutrition: Very dry mouth, not swallowing well, currently NPO. will give 20cc of 1/2 D5NS to keep glucoses up for comfort DVT: Held due to GIB (Kade Tyler MD R1) Problem Qualifiers (1) Urinary tract infection: Qualified Code: N30.00 - Acute cystitis without hematuria (2) Altered mental status: Qualified Code: R41.0 - Delirium (3) CHF, chronic: Qualified Code: I50.9 - Chronic congestive heart failure, unspecified congestive heart failure type (4) Sacral decubitus ulcer: Qualified Code: L89.159 - Decubitus ulcer of sacral region, unspecified ulcer stage (5) Coronary artery disease: Qualified Code: I25.10 - Coronary artery disease involving [place] coronary artery of [place] heart, angina presence unspecified (6) Dementia: Qualified Code: 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
--- NOTE | 2016-12-29 11:33 | HHI.DS ---
Discharge Summary Admission Date Dec 15, 2016 at 6:32 am Discharge Date: Dec 29, 2016 Admitting Diagnosis urosepsis (1) Palliative care status Diagnosis: Secondary (2) Atelectasis of left lung Diagnosis: Secondary (3) Streptococcal infection group D enterococcus Diagnosis: Secondary (4) Acute upper GI bleed Diagnosis: Principal (5) Urinary tract infection Diagnosis: Principal (6) Altered mental status Diagnosis: Principal (7) CHF, chronic Diagnosis: Secondary (8) ESRD (end stage renal disease) on dialysis Diagnosis: Secondary (9) Anemia of renal disease Diagnosis: Secondary (10) Sacral decubitus ulcer Diagnosis: Secondary (11) Essential hypertension Diagnosis: Secondary (12) Coronary artery disease Diagnosis: Secondary (13) History of right hip hemiarthroplasty Diagnosis: Secondary (14) Paroxysmal atrial fibrillation Diagnosis: Secondary (15) Dementia Diagnosis: Secondary Consultants Nephrology - Dr. Morton ID - Dr. Torres CCM - Dr. Strickland, Dr. Evert CASTRO - Dr. De La Garza Palliative - Dr. Martinez Orthopedics - Dr. Woods Procedures Hemodialysis - Tue//Sat schedule EGD - 12/18/16 Tracheal intubation, mechanical ventilation Brief History 89 yo female with PMH of CHF with last echo 2014 showing EF 35%, ESRD on dialysis TTS, CAD s/p stenting, sacral decubitus ulcers presenting with altered mental status after being found down. Unclear per report how long patient was down for. Patient severely demented at baseline in addition to current altered mental status and unable to provide history. CBC/BMP: 12/28/16 0600 12/28/16 0600 Significant Findings Laboratory Tests Test 12/26/16 12/27/16 12/28/16 15:55 03:15 06:00 Hemoglobin 9.9 GM/DL 9.5 GM/DL 9.0 GM/DL (11.6-15.3) (11.6-15.3) (11.6-15.3) Hematocrit 29.9 % 29.1 % 28.2 % (35.0-46.0) (35.0-46.0) (35.0-46.0) White Blood Count 22.1 TH/MM3 19.6 TH/MM3 (4.0-11.0) (4.0-11.0) Red Blood Count 3.17 MIL/MM3 3.05 MIL/MM3 (4.00-5.30) (4.00-5.30) Mean Platelet Volume 6.8 FL 6.5 FL (7.0-11.0) (7.0-11.0) Neutrophils (%) (Auto) 85.1 % 85.1 % (16.0-70.0) (16.0-70.0) Lymphocytes (%) (Auto) 5.0 % 5.1 % (9.0-44.0) (9.0-44.0) Monocytes (%) (Auto) 8.4 % (0.0-8.0) Neutrophils # (Auto) 18.8 TH/MM3 16.7 TH/MM3 (1.8-7.7) (1.8-7.7) Monocytes # (Auto) 1.8 TH/MM3 1.5 TH/MM3 (0-0.9) (0-0.9) Neutrophils % (Manual) 80 % (16-70) 78 % (16-70) Lymphocytes % 8 % (9-44) 7 % (9-44) Neutrophils # (Manual) 18.3 TH/MM3 16.7 TH/MM3 (1.8-7.7) (1.8-7.7) Myelocytes 2 % (0-0) 6 % (0-0) Polychromasia 2.5 % (0.0-1.9) Basophilic Stippling FAINT (NORMAL) Carbon Dioxide Level 32.8 MEQ/L (21.0-32.0) Creatinine 2.26 MG/DL 3.21 MG/DL (0.50-1.00) (0.50-1.00) Estimat Glomerular Filtration 20 ML/MIN (>89) 14 ML/MIN (>89) Rate Random Glucose 122 MG/DL 69 MG/DL (74-106) (74-106) Phosphorus Level 1.3 MG/DL (2.5-4.9) Total Protein 6.1 GM/DL (6.4-8.2) Albumin 2.6 GM/DL (3.4-5.0) Chloride Level 97 MEQ/L (98-107) Blood Urea Nitrogen 27 MG/DL (7-18) Calcium Level 7.9 MG/DL (8.5-10.1) Imaging Last Impressions Chest X-Ray 12/29/16 0600 Signed Impressions: Service Date/Time: Thursday, December 29, 2016 03:41 - CONCLUSION: Unchanged complete consolidation of the left lung. Shadi Chapman Jr., MD Hip X-Ray 12/27/16 0000 Signed Impressions: Service Date/Time: Tuesday, December 27, 2016 15:33 - CONCLUSION: Superior dislocation of the hip arthroplasty on the right. Henry Del Valle MD FACR Abdomen X-Ray 12/27/16 0000 Signed Impressions: Service Date/Time: Tuesday, December 27, 2016 15:22 - CONCLUSION: Dobbhoff catheter tip appears to be within the stomach. Shadi Weber MD Upper Extremity Ultrasound 12/24/16 0000 Signed Impressions: Service Date/Time: Saturday, December 24, 2016 14:41 - CONCLUSION: Normal examination. Benjamin Oquendo MD Chest CT 12/24/16 0000 Signed Impressions: Service Date/Time: Saturday, December 24, 2016 12:00 - CONCLUSION: The left main bronchus is filled with soft tissue density could be secretions with mucous plugging versus neoplastic process and the entire left lung is consolidated/collapsed with a tiny left pleural effusion. Rigoberto Valencia MD Hip and Pelvis X-Ray 12/15/16 0000 Signed Impressions: Service Date/Time: Thursday, December 15, 2016 05:00 - CONCLUSION: Intact total hip prosthesis for technique and extensive stool and osteopenia as above. Rigoberto Valencia MD Head CT 12/15/16 0000 Signed Impressions: Service Date/Time: Thursday, December 15, 2016 04:53 - CONCLUSION: Chronic and small vessel ischemic changes without any evidence for acute hemorrhage or mass effect. Rigoberto Valencia MD Cervical Spine CT 12/15/16 0000 Signed Impressions: Service Date/Time: Thursday, December 15, 2016 04:53 - CONCLUSION: Neural foramina compromise right C3-4, right C5-C6 and bilateral lateral recess compromise C5- 6. Rigoberto Valencia MD PE at Discharge GENERAL: Elderly white female. Awake with NC in place. Appears uncomfortable but not distressed. Does not answer questions appropriately today. Speaks in low weak voice. SKIN: Pallor. Stage 2-3 sacral decubitus ulcer (dressing changed 4/6, sees wound care), stage 2-3 pressure ulcer R posterior calf, healing. Skin abrasion over L anterior warren. Several bruises over shins and forearms in various stages of healing. Edema right forearm and hand, improved from before. CARDIOVASCULAR: Normal rate, irregularly irregular rhythm. Normal S1/S2. No MRG RESPIRATORY: Raspy sounding breath from secretions. Absent breath sounds in the left lower lung. Poor inspiratory effort. Mild crackles b/l lung bases. ABDOMEN: Soft, non-distended, non-tender. MUSCULOSKELETAL: Extremities without clubbing, cyanosis. Edema as noted above. NEURO: Awake, alert. Does not respond to yes/no questions. Speaks in low soft voice. Hospital Course 89 yo female with significant PMH of ESRD on HD, recent hip fracture, CVA, CHF presenting initially with altered mental status and UTI. After treatment for UTI and pain control with IV Tylenol her mental status improved. On hospital day 5 she was being prepared for discharge when she experienced a hemoglobin drop due to acute GIB. She was taken to the OR for urgent endoscopy on 12/18 which revealed several bleeding peptic ulcers. She was transferred to the ICU while still intubated. She initially failed first attempt at extubation and needed to be reintubated. Second trial of extubation was successful but she experienced persistent respiratory difficulty due to ineffective clearing of secretions. These difficulties necessitated bronchoscopy (first intubation). Afterward she continued to have difficulties breathing, and after a family meeting involving patient, family, palliative care, CCM, and primary team, the decision was made to pursue comfort measures only. Hospice consult was placed and patient was accepted at Hospice facility in [place]. Significant studies: Echo this hospitalization showing EF 55-60%. EKG/troponins not indicative of any ischemia. EGD as noted above. Pt Condition on Discharge: Stable Discharge Disposition: Hospice/Med Facility Discharge Instructions DIET: Follow Instructions for: As Tolerated, No Restrictions Speech Therapy-Diet Recommends: Pureed, Pudding Thickened Liquids Additional Diet Instructions: supplement with Nepro Activities you can perform: Continue Bedrest Follow up Referrals: Nephrology - 1 Week PCP Follow-up - 1 Week New Medications: Collagenase (Santyl) 250 Unit/Gm Oin 1 APPLIC TOPICAL DAILY Apply to sacral ulcer only once a day with daily dressing changes #1 TUBE Continued Medications: Amlodipine (Amlodipine) 5 Mg Tab 5 MG PO DAILY Blood Pressure Management #[address] (Aspirin 81) 81 Mg Tabdr 81 MG PO DAILY Ref 0 TAB B-Complex W/ C & Folic Acid (Nephro-Donald) 1 Tab 1 TAB PO DAILY Nutritional Supplement #30 Ref 0 TAB Bisacodyl Supp (Dulcolax Supp) 10 Mg Supp 10 MG RECTAL DAILY PRN CONSTIPATION #12 Ref 0 SUPP Calcium Acetate (Phosphate Binder) (Phoslo) 667 Mg Cap 667 MG PO TID Hyperphosphatemia #90 Ref 0 CAP Carvedilol (Coreg) 3.125 Mg Tab 3.125 MG PO Q12HR #60 TAB Cholecalciferol (Vitamin D3) 2,000 Unit Chew 2000 UNITS CHEW DAILY #1 BOTTLE Clopidogrel (Plavix) 75 Mg Tab 75 MG PO DAILY Blood Clot Prevention #30 Ref 0 TAB Furosemide (Lasix) 20 Mg Tab 20 MG PO DAILY #30 Ref 0 TAB Ipratropium HFA 12.9 GM Inh (Atrovent HFA 12.9 GM Inh) 17 Mcg/Act Aer 2 PUFF INH Q6HR PRN SHORTNESS OF BREATH #1 Ref 0 INHALER Ipratropium Nasal (Ipratropium Nasal) Unknown Strength [place] Unknown Dose UNITS Latanoprost Opth Drops (Xalatan Opth Drops) 0.005% Drops 1 DROP EACH EYE HS Glaucoma #2.5 Ref 0 ML Levothyroxine (Levothyroxine) 112 Mcg Tab 112 MCG PO DAILY #30 Ref 0 TAB Lovastatin (Lovastatin) 40 Mg Tab 40 MG PO DAILY Cholesterol Management #30 Ref 0 TAB Nutritional Supplements (Nepro) 1 Liq Liq 1 CAN PO DAILY Ondansetron (Zofran) 4 Mg Tab 4 MG PO Q8HR PRN NAUSEA OR VOMITING #30 Ref 0 TAB Polyethylene Glycol 3350 Powder (Miralax Powder) 17 Gm Powd 17 GM PO DAILY Mix and dissolve one measuring cap-ful (17 grams) in water or juice. Constipation #1 Ref 0 BOTTLE Ranitidine (Zantac 75) 75 Mg Tab 75 MG PO DAILY Take 30 to 60 minutes before eating food or drinking beverages that cause heartburn. Heartburn #30 Ref 0 TAB Sennosides-Docusate Sodium (Polly-Colace) 8.6-50 Mg Tab 2 TAB PO BID PRN Constipation #60 Ref 0 TAB Trazodone (Trazodone) 50 Mg Tab 50 MG PO HS Insomnia #30 Ref 0 TAB Vitamin B Cmplx/Vit C/Folic AC (Nephro-Donald Rx) Unknown Strength Tab Unknown Dose PO TAB Walker/Adult/Folding (Walker/Adult/Folding) 1 Mis Mis 1 EA .ROUTE DIRECTED #1 Ref 0 EA Kade Tyler MD R1 Dec 29, 2016 11:33 am
== END 2016-12-29 12:05 | disposition hospice, inpatient (51) | DRG 987 ==
LOC: NEPE 04:34 → NEDA 06:32 → N04B 11:05 → HIME 12-18 15:20 → HIMN 12-21 14:35 → HIME 12-21 14:53
PROVIDERS: ADMIT Family Medicine; ATTEND Family Medicine
PROC: 5A1D60Z (ICD-10-PCS; 2016-12-16)
PROC: 5A1945Z Respiratory Ventilation, 24-96 Consecutive Hours (ICD-10-PCS; 2016-12-18)
PROC: 30233N1 Transfusion of Nonautologous Red Blood Cells into Peripheral Vein, Percutaneous Approach (ICD-10-PCS; 2016-12-18)
PROC: 0W3P8ZZ Control Bleeding in Gastrointestinal Tract, Via Natural or Artificial Opening Endoscopic (ICD-10-PCS; 2016-12-18)
PROC: 30233K1 Transfusion of Nonautologous Frozen Plasma into Peripheral Vein, Percutaneous Approach (ICD-10-PCS; 2016-12-18)
PROC: 0B9G8ZX Drainage of Left Upper Lung Lobe, Via Natural or Artificial Opening Endoscopic, Diagnostic (ICD-10-PCS; principal; 2016-12-21)
PROC: 0B9G8ZX Drainage of Left Upper Lung Lobe, Via Natural or Artificial Opening Endoscopic, Diagnostic (ICD-10-PCS; 2016-12-21)
PROC: 0BC78ZZ Extirpation of Matter from Left Main Bronchus, Via Natural or Artificial Opening Endoscopic (ICD-10-PCS; 2016-12-21)
PROC: 0B998ZX Drainage of Lingula Bronchus, Via Natural or Artificial Opening Endoscopic, Diagnostic (ICD-10-PCS; 2016-12-21)
PROC: 0BH17EZ Insertion of Endotracheal Airway into Trachea, Via Natural or Artificial Opening (ICD-10-PCS; 2016-12-21)
PROC: 0B948ZX Drainage of Right Upper Lobe Bronchus, Via Natural or Artificial Opening Endoscopic, Diagnostic (ICD-10-PCS; 2016-12-24)
PROC: 0BC78ZZ Extirpation of Matter from Left Main Bronchus, Via Natural or Artificial Opening Endoscopic (ICD-10-PCS; 2016-12-24)
PROC: 0B998ZX Drainage of Lingula Bronchus, Via Natural or Artificial Opening Endoscopic, Diagnostic (ICD-10-PCS; 2016-12-24)
PROC: 0B948ZX Drainage of Right Upper Lobe Bronchus, Via Natural or Artificial Opening Endoscopic, Diagnostic (ICD-10-PCS; 2016-12-24)
PROC: 0BH17EZ Insertion of Endotracheal Airway into Trachea, Via Natural or Artificial Opening (ICD-10-PCS; 2016-12-24)
PROC: 02HV33Z Insertion of Infusion Device into Superior Vena Cava, Percutaneous Approach (ICD-10-PCS; 2016-12-24)
PROC: B544ZZA Ultrasonography of Left Jugular Veins, Guidance (ICD-10-PCS; 2016-12-24)
DX: N30.00 Acute cystitis without hematuria (principal); R57.8 Other shock; B37.1 Pulmonary candidiasis; I13.2 Hypertensive heart and chronic kidney disease with heart failure and with stage 5 chronic kidney disease, or end stage renal disease; G93.41 Metabolic encephalopathy; L89.153 Pressure ulcer of sacral region, stage 3; K25.4 Chronic or unspecified gastric ulcer with hemorrhage; N18.6 End stage renal disease; D69.1 Qualitative platelet defects; S72.011A Unspecified intracapsular fracture of right femur, initial encounter for closed fracture; L89.893 Pressure ulcer of other site, stage 3; I42.9 Cardiomyopathy, unspecified; I50.22 Chronic systolic (congestive) heart failure; D62 Acute posthemorrhagic anemia; J98.11 Atelectasis; E87.1 Hypo-osmolality and hyponatremia; K52.1 Toxic gastroenteritis and colitis; E46 Unspecified protein-calorie malnutrition; T84.020A Dislocation of internal right hip prosthesis, initial encounter; Z51.5 Encounter for palliative care; E11.22 Type 2 diabetes mellitus with diabetic chronic kidney disease; I48.0 Paroxysmal atrial fibrillation; I25.10 Atherosclerotic heart disease of native coronary artery without angina pectoris; E78.5 Hyperlipidemia, unspecified; E03.9 Hypothyroidism, unspecified; I73.9 Peripheral vascular disease, unspecified; H35.30 Unspecified macular degeneration; S80.812A Abrasion, left lower leg, initial encounter; S80.811A Abrasion, right lower leg, initial encounter; R62.7 Adult failure to thrive; F02.80 Dementia in other diseases classified elsewhere, unspecified severity, without behavioral disturbance, psychotic disturbance, mood disturbance, and anxiety; D63.8 Anemia in other chronic diseases classified elsewhere; J98.09 Other diseases of bronchus, not elsewhere classified; K21.9 Gastro-esophageal reflux disease without esophagitis; G30.1 Alzheimer's disease with late onset; H40.9 Unspecified glaucoma; I69.391 Dysphagia following cerebral infarction; R13.10 Dysphagia, unspecified; I69.398 Other sequelae of cerebral infarction; I69.321 Dysphasia following cerebral infarction; T36.95XA Adverse effect of unspecified systemic antibiotic, initial encounter; M81.0 Age-related osteoporosis without current pathological fracture; E83.42 Hypomagnesemia; E83.39 Other disorders of phosphorus metabolism; E11.649 Type 2 diabetes mellitus with hypoglycemia without coma; K29.80 Duodenitis without bleeding; E11.65 Type 2 diabetes mellitus with hyperglycemia; E87.6 Hypokalemia; R00.0 Tachycardia, unspecified; B95.2 Enterococcus as the cause of diseases classified elsewhere; D63.1 Anemia in chronic kidney disease; W19.XXXA Unspecified fall, initial encounter; Y79.2 Prosthetic and other implants, materials and accessory orthopedic devices associated with adverse incidents; Y92.129 Unspecified place in nursing home as the place of occurrence of the external cause; Z66 Do not resuscitate; Z79.02 Long term (current) use of antithrombotics/antiplatelets; Z74.01 Bed confinement status; Z79.82 Long term (current) use of aspirin; Z88.0 Allergy status to penicillin; Z88.5 Allergy status to narcotic agent; Z87.891 Personal history of nicotine dependence; Z95.1 Presence of aortocoronary bypass graft; Z90.2 Acquired absence of lung [part of]; Z95.2 Presence of prosthetic heart valve; Z95.5 Presence of coronary angioplasty implant and graft; Z96.641 Presence of right artificial hip joint; Z99.2 Dependence on renal dialysis
CPT/HCPCS: 31500; 31624; 36430; 36556; 36600; 70450; 71010; 71250; 72125; 73501; 73502; 74000; 76937; 80048; 80053; 81001; 82272; 82306; 82728; 82805; 83540; 83550; 83605; 83735; 83970; 84100; 84155; 84484; 85007; 85014; 85018; 85025; 85027; 85610; 85730; 86403; 86850; 86900; 86901; 86920; 86927; 87015; 87040; 87070; 87077; 87086; 87102; 87116; 87186; 87205; 87206; 87493; 87641; 88112; 88305; 89051; 90935; 93005; 93308; 93971; 94002; 94003; 94150; 94640; 94664; 94667; 94668; 95819; 96374; 96375; C9113; J0131; J0171; J0744; J1450; J1630; J1650; J1756; J1956; J2060; J2150; J2250; J2543; J2597; J3010; J3475; J3480; J7030; J7042; J7050; J7608; P9016; P9017; P9047; P9612; Q4081